=== PATIENT | male | born 1955 | race Caucasian/White ===

== ENCOUNTER 2016-09-11 20:53 | Inpatient (IN) | payer BC, OTHER ==
[~2016-09-11] VITALS: Ht 172.7 cm; Wt 73.3 kg
[2016-09-12] VITALS (11 sets, daily range): BP systolic 103–155; BP diastolic 58–68; PULSE 75–91; RESP 16–20; Ht 172.7 cm; Wt 73.3 kg
[2016-09-12] MEDS ORDERED: morphine 10 MG INJ IM PRN (01:30)
[2016-09-12] MEDS ORDERED: DEXTROSE 5%-0.9% NACL 1,000 ML IV SCH (01:30)
[2016-09-12] MEDS ORDERED: ONDANSETRON 4 MG INJ IV PRN (01:30)
[2016-09-12] MEDS ORDERED: ACETAMINOPHEN 325 MG TAB PO PRN (01:30)
[2016-09-12] MEDS ORDERED: VANCOMYCIN IV PER PHARMACY XX SCH (01:30)
[2016-09-12] MEDS ORDERED: GEMF600T60 PO (01:43)
[2016-09-12] MEDS ORDERED: GABA300C16 PO (01:43)
[2016-09-12] MEDS ORDERED: LISI-313 PO (01:43)
[2016-09-12] MEDS ORDERED: FER325 PO (01:43)
[2016-09-12] MEDS ORDERED: HYDR-906 PO (01:43)
[2016-09-12] MEDS ORDERED: DICL75TA2 PO (01:43)
[2016-09-12] MEDS ORDERED: METF500T4 PO (01:43)
[2016-09-12] MEDS ORDERED: ASPI-664 PO (01:43)
[2016-09-12] MEDS ORDERED: SENN-53 PO (01:43)
[2016-09-12] MEDS ORDERED: morphine 2 MG INJ ONE (02:55)
[2016-09-12] MEDS: DEXTROSE 5%-0.9% NACL 1,000 ML IV SCH ×2 (03:46→17:07)
[2016-09-12] MEDS: morphine 2 MG INJ IV PRN ×3 (03:56→14:04)
[2016-09-12] MEDS: LEVOFLOXACIN 750MG/D5W (PMX) 150 ML IVPB SCH (03:56)
[2016-09-12] MEDS ORDERED: VANCOMYCIN 1.5 GM in SOD CHLORIDE 0.9% 250 ML IVPB SCH (05:00)
[2016-09-12] MEDS: PANTOPRAZOLE 40 MG INJ IV SCH ×2 (06:50→17:59)
[2016-09-12 07:40] LABS: HEMATOCRIT 20.9 % (42.0-52.0); MEAN CORPUSCULAR HGB CONC 31.8 g/dl (32.0-37.0); MEAN CORPUSCULAR VOLUME 72.3 fl (82.0-101.0); MEAN PLATELET VOLUME 7.2 fl (7.4-10.4); PLATELET COUNT 299 10^3/UL (140-440); RED CELL DISTRIBUTION WIDTH 18.4 % (11.5-14.5)
[2016-09-12 07:42] LABS: CONDITION 1; LH ANALYZER COMMENTS 1
[2016-09-12 07:45] LABS: HEMOGLOBIN 6.7 g/dl (14.0-18.0)
[2016-09-12 07:47] LABS: ALBUMIN 2.7 g/dl (3.3-4.9)
[2016-09-12 07:48] LABS: POTASSIUM 4.7 mmol/L (3.5-5.1)
[2016-09-12 07:50] LABS: ALBUMIN/GLOBULIN RATIO 0.62; CALCIUM 8.1 mg/dl (8.4-10.2); CREATININE 0.67 mg/dl (0.61-1.24)
[2016-09-12 10:04] LABS: BASOPHIL # 0.2 10^3/ul (0.0-0.1); EOSINOPHILS # 0.1 10^3/ul (0.0-0.5); LYMPHOCYTES # 0.8 10^3/ul (0.8-2.9); MONOCYTE # 0.2 10^3/ul (0.3-0.9); NEUTROPHIL # 7.8 10^3/ul (1.6-7.5)
--- NOTE | 2016-09-12 15:33 | HP ---
DATE OF ADMISSION: 09/12/2016 HISTORY OF PRESENT ILLNESS: Neno Browning is a middle-aged man who presented to this hospital when he was transferred from [facility] with a diagnosis of anemia, and the patient has hidradenitis suppurativa. The patient has some blood in the stool, but he is not sure about it, and is being admitted for further management. Sodium 137, potassium 4.5, BUN 20.78. The patient has a hemoglobin of 7.3, hematocrit 23.6. PAST MEDICAL HISTORY: The patient's past medical history is positive for diabetes, dyslipidemia, hypertension, and neuropathy. ALLERGY HISTORY: NEGATIVE. FAMILY HISTORY: Negative. SOCIAL HISTORY: Negative. MEDICATIONS: History listed as: 1. Aspirin. 2. Diclofenac. 3. Iron sulfate. 4. Gabapentin. 5. Lisinopril. 6. Metformin. 7. Simvastatin. REVIEW OF SYSTEMS: HEENT: Unremarkable. RESPIRATORY: Unremarkable. CARDIOVASCULAR: Unremarkable. GASTROINTESTINAL: As mentioned. EXTREMITIES: As mentioned. PHYSICAL EXAMINATION: GENERAL: The patient is awake, alert. VITAL SIGNS: Stable. HEAD: Atraumatic, normocephalic. Pupils are equal and reactive to light. NECK: Supple. No JVD. LUNGS: Clear. CARDIOVASCULAR: S1, S2 normal. ABDOMEN: Soft, nontender. Bowel sounds present. No palpable masses or hepatosplenomegaly. No guarding or rebound tenderness. EXTREMITIES: No cyanosis, clubbing, or edema. GROIN: The patient has a groin lesion, with pus noted. IMPRESSION: 1. Anemia, symptomatic. 2. The patient has hidradenitis suppurativa. 3. Diabetes mellitus. 4. Dyslipidemia. 5. Hypertension. 6. Anemia. 7. sepsis. PLAN: To continue on a diabetic diet. GI consultation and surgical consultation, antibiotics, wound care, per protocol. Orders were done. Dictated By: TAMARA SMITH MD BS/NTS Conf#: [id number] DID#: [id number] MTDD
[2016-09-12 17:41] LABS: IRON 15 ug/dl (35-150)
[2016-09-12] MEDS: HYDROmorphONE 2 MG/ML SYG IV PRN (17:48)
[2016-09-12 17:50] LABS: TOTAL IRON BINDING CAPACITY 207 ug/dl (241-421)
[2016-09-12] MEDS: VANCOMYCIN 1 GM in NS 250 ML IVPB SCH (18:00)
[2016-09-12] MEDS ORDERED: PEG/ELECTROLYTES 4L BTL PO ONE (19:00)
[2016-09-12] MEDS ORDERED: BISACODYL (EC) 5 MG TAB PO ONE (20:00)
[2016-09-12] MEDS: morphine (ER) 15 MG TAB PO SCH (21:00)
--- NOTE | 2016-09-12 23:24 | CONS ---
DATE OF ADMISSION: 09/12/2016 DATE OF CONSULTATION: 09/12/2016 TYPE OF CONSULTATION: Surgical repair. REFERRING PHYSICIAN: Heriberto Gomez MD CHIEF COMPLAINT: 1. Bilateral inguinal and buttock hidradenitis suppurativa. 2. Significant anemia. 3. Possible gastrointestinal bleed. HISTORY OF PRESENT ILLNESS: Mr. Nam Lazcano is a 60-year-old male with known bilateral inguinal and buttock hidradenitis suppurativa who has had multiple I and D's at different hospitals and also I a nd D of his scrotum home by urology who has had generalized weakness and dyspnea on exertion and pre sented initially to [facility] and was found to have significant anemia, was admitted but subseque ntly discharged. He then was referred by his PCP to [place] [facility] where he was evaluated and transferr ed to [facility] due to insurance capitations. He denies any current chest pain, nausea, v omiting, visual or neurologic changes. He reports drainage from all his hidradenitis sites includin g bilateral inguinal and buttocks. The patient is supposed to be seeing a plastic surgeon as outpat ient, but apparently he missed his appointment. He reports pain at all the sites. Surgical consult is obtained for further evaluation and treatment. PAST MEDICAL HISTORY 1. Bilateral inguinal hidradenitis suppurativa. 2. Bilateral buttock hidradenitis suppurativa. 3. Anemia. 4. Iron deficiency. 5. Hypoalbuminemia. 6. Leukocytosis. 7. Generalized weakness. 8. Dyspnea on exertion. 9. Hypertension. 10. Hypercholesterolemia. 11. Diabetes mellitus. PAST SURGICAL HISTORY: 1. Multiple incision and drainages of abscesses in both groins and buttock at [place] by Dr. Dalton Vilchis and of the scrotum by Dr. Grabiel Parks. 2. Aortic stent. ALLERGIES: PENICILLIN. SOCIAL HISTORY: Smoker, however, denies alcohol or recreational drugs. FAMILY HISTORY: Noncontributory. REVIEW OF SYSTEMS: As per HPI. No significant weight changes. PHYSICAL EXAMINATION: VITAL SIGNS: Pertinent vitals: Temperature is 98.5, pulse 70s to 100s, currently 89, blood pressure 127/65. GENERAL: No acute distress, comfortable, pleasant. HEENT: Pupils equal, reactive. No scleral icterus. Mucous membranes are moist. NECK: Supple, no JVD. PULMONARY: No respiratory distress with normal respiratory effort. No wheezing. CARDIAC: S1, S2 present. ABDOMEN: Soft, nontender. GENITOURINARY: Bilateral inguinal and partial scrotal induration and erythema and tenderness with p urulent drainage. SKIN: No rashes or jaundice; however hidradenitis bilateral inguinal and buttocks with purulent willem inage. RECTAL: Not done. However, buttock tissue has draining purulent fluid bilaterally. VASCULAR: Capillary refill is 2 seconds. NEUROLOGIC: Alert, oriented, moves all 4 extremities grossly. LABORATORY DATA: WBC is 11, H and H 6.7/21, platelets 299. Chemistries normal. Calcium is low at 8.1. Iron studies are low, albumin is 2.7. RADIOGRAPHIC: As per chart. ASSESSMENT AND PLAN: Ms. Nam Lazcano is a 60-year-old male with multiple comorbidities. 1. Bilateral hidradenitis suppurativa with acute infection and purulent discharge with involvement of the scrotum. Continue antibiotics. IV fluids. Plastic surgical consultation. Urologic consulta tion. 2. Significant anemia, iron deficiency of unknown etiology. A GI consulted and planning for colono scopy. 3. Hypoalbuminemia is probably multifactorial; however, he will benefit from optimization of his nu trition. 4. Hypertension. Continue diet and medication control. 4. Diabetes. Continue diet and medication control. 5. Hypercholesterolemia. Continue diet and medication control. Thank you very much for consulting me in this patient's care. Dictated By: STARR ZULUAGA/MAURIZIO Conf#: [id number] DID#: [id number]
[2016-09-13] VITALS (39 sets, daily range): BP systolic 94–151; BP diastolic 48–74; PULSE 78–124; RESP 10–22
--- NOTE | 2016-09-13 01:00 | RADRPT ---
PROCEDURE: XR Chest. CLINICAL INDICATION: Shortness of breath. TECHNIQUE: AP Portable chest. COMPARISON: No pertinent prior examinations were submitted for comparison. FINDINGS: The cardiomediastinal silhouette is normal. The lungs are clear. The osseous structures are unrema rkable. IMPRESSION: No acute findings. RPTAT: HIKT .Thony Pearce MD, MD Date Time Electronically viewed and signed by .Thony Pearce MD, MD on 09/13/2016 01:00 .T/
[2016-09-13] MEDS: LEVOFLOXACIN 750MG/D5W (PMX) 150 ML IVPB SCH (03:27)
[2016-09-13] MEDS: VANCOMYCIN 1 GM in NS 250 ML IVPB SCH ×3 (05:25→21:57)
[2016-09-13] MEDS: PANTOPRAZOLE 40 MG INJ IV SCH ×2 (05:25→18:00)
[2016-09-13 06:37] LABS: INR 1.25; PROTIME 15.8 Sec (12.2-14.2); PT RATIO 1.2
[2016-09-13] MEDS: DEXTROSE 5%-0.9% NACL 1,000 ML IV SCH ×2 (06:40→21:58)
[2016-09-13 06:45] LABS: BASOPHILS % 0.3 % (0.0-2.0); EOSINOPHILS # 0.1 10^3/ul (0.0-0.5); EOSINOPHILS % 1.1 % (0.0-7.0); HEMATOCRIT 25.4 % (42.0-52.0); HEMOGLOBIN 8.3 g/dl (14.0-18.0); LYMPHOCYTES # 0.9 10^3/ul (0.8-2.9); LYMPHOCYTES % 7.8 % (15.0-51.0); MEAN CORPUSCULAR HEMOGLOBIN 24.4 pg (29.0-33.0); MEAN CORPUSCULAR HGB CONC 32.6 g/dl (32.0-37.0); MEAN CORPUSCULAR VOLUME 74.9 fl (82.0-101.0); MEAN PLATELET VOLUME 7.2 fl (7.4-10.4); MONOCYTE # 0.5 10^3/ul (0.3-0.9); NEUTROPHIL # 10.1 10^3/ul (1.6-7.5); NEUTROPHILS % 86.8 % (39.0-77.0); PLATELET COUNT 312 10^3/UL (140-440); RED BLOOD COUNT 3.39 10^6/ul (4.70-6.10); RED CELL DISTRIBUTION WIDTH 19.4 % (11.5-14.5); UNCORRECTED WBC 11.6 10^3/ul (4.8-10.8); WHITE BLOOD COUNT 11.6 10^3/ul (4.8-10.8)
[2016-09-13 06:55] LABS: CONDITION 1; LH ANALYZER COMMENTS 1
[2016-09-13 06:57] LABS: ALBUMIN 2.9 g/dl (3.3-4.9); POTASSIUM 4.2 mmol/L (3.5-5.1)
[2016-09-13 06:59] LABS: ALBUMIN/GLOBULIN RATIO 0.67; BILIRUBIN,INDIRECT 0.3 mg/dl (0-1.1); BILIRUBIN,TOTAL 0.3 mg/dl (0.2-1.3); CREATININE 0.6 mg/dl (0.61-1.24)
[2016-09-13 07:00] LABS: TOTAL PROTEIN 7.2 g/dl (6.1-8.1)
[2016-09-13 07:10] LABS: CALCIUM 8.3 mg/dl (8.4-10.2)
[2016-09-13] MEDS: morphine (ER) 15 MG TAB PO SCH ×2 (09:00→21:00)
--- NOTE | 2016-09-13 13:44 | CONS ---
DATE OF ADMISSION: 09/12/2016 DATE OF CONSULTATION: 09/13/2016 REQUESTING PHYSICIAN: Dr. Kevin Martinez Dear Kevin: Thank you for asking me to see this patient in urological consultation. HISTORY OF PRESENT ILLNESS: As you know, he is a 60-year-old male who is known to have a history of bilateral inguinal and buttock hidradenitis suppurativa, and he has had multiple I and D at [facility] including [facility], and the patient was supposed to see a plastic surgeon because h e will probably need a skin graft over the areas of these separations. The patient went to the [facility] room at [facility] and was transferred to [facility] because of his insurance c apitation. A urological consultation was requested as there is a concern about whether the scrotum is also involved with the hidradenitis. The patient stated that he has had this for over about a ye ar and has had multiple procedures. He did have surgery on this multiple times. PAST MEDICAL HISTORY: He does have a history of anemia and iron deficiency, hypoalbuminemia, leukoc ytosis, generalized weakness, hypertension, hypercholesterolemia, diabetes mellitus. PAST SURGICAL HISTORY: Again, as mentioned, I and D of multiple abscesses in both groins and buttoc ks at [place] and also he has had a history of aortic stent. ALLERGIES: TO PENICILLIN. SOCIAL HISTORY: He is a smoker. He denies any alcohol and drug abuse. PHYSICAL EXAMINATION: GENERAL: Reveals a 60-year-old male. He weighs 73.3 kilograms. His height is 68 inches. VITAL SIGNS: Temperature is 98.3, pulse is 88, respirations 20, blood pressure 122/55. ABDOMEN: Soft. He does have multiple what appears to be scars and incisions with suppurative drain age in both inguinal and groin area, but the scrotum itself is intact. The does also have a hidrad enitis of the buttocks. EXTREMITIES: Normal. IMPRESSION: Bilateral hidradenitis suppurativa with acute infection, purulent drainage from the ing uinal scrotal area at the upper end of the scrotum, and the patient does have anemia and hypoalbumin emia, hypertension, diabetes and hypercholesterolemia. The patient is on pain medication. He is on vancomycin, Protonix, Levaquin, and Tylenol p.r.n. As far as urology is concerned, I think his scr otum is reasonably clean and if there is anything in the inguinal area that is extending into the sc rotum, that could be treated at the same time as the inguinal area, and he certainly will need these to be drained first, and then if he needs probably skin graft to that area, but the scrotum itself, the scrotal skin, and the testes are intact. I will follow his urological problem with you. I do thank you for allowing me to help in his care. Sincerely, Dictated By: MAURA SWANSON/MAURIZIO Conf#: [id number] DID#: [id number]
[2016-09-13] MEDS ORDERED: PROPOFOL 20 ML ONE (14:03)
[2016-09-13] MEDS ORDERED: FENTAnyl 50 MCG/ML VIAL ONE ×2 (14:03→15:55)
--- NOTE | 2016-09-13 14:08 | PN ---
Date/Time of Note Date/Time of Note DATE: 09/13/16 TIME: 14:05 Assessment/Plan Lines/Catheters IV C[facility] Type ([facility] Peripheral IV Rahman in Place (from [facility]): No Assessment/Plan Chief Complaint/Hosp Course 1. Bilateral hidradenitis suppurativa with acute infection and purulent discharge with involvement of the scrotum. Urologic consult patient noted and appreciated. -Continue antibiotics. -IV fluids. -Plastic surgical consultation pending. -Patient will need drainage of these abscesses 2. Significant anemia, iron deficiency of unknown etiology. -Colonoscopy and EGD pending 3. Hypoalbuminemia is probably multifactorial; however, he will benefit from optimization of his nutrition. 4. Hypertension. Continue diet and medication control. 4. Diabetes. Continue diet and medication control. 5. Hypercholesterolemia. Continue diet and medication control. Thank you Problems: Subjective 24 Hr Interval Summary Patient going for EGD and colonoscopy today. Continues to have pain and discharge from bilateral groin and bilateral buttocks. No abdominal pain. No nausea vomiting. No fevers or chills. No chest pain or shortness of breath. No visual or neurologic changes. No dysuria. Urology input appreciated. Plastic surgical input pending. Exam/Review of Systems Vital Signs Vitals Vital Signs Date Time Temp Pulse Resp B/P Pulse Ox O2 Delivery O2 Flow Rate FiO2 09/13/16 14:02 91 17 125/58 98 Room Air 09/13/16 11:47 98.3 Intake and Output 09/12/16 09/12/16 09/13/16 15:00 23:00 07:00 Intake Total 240 ml 150 ml Output Total 750 ml Balance -510 ml 150 ml Exam Free Text/Dictation GENERAL: No acute distress, comfortable, pleasant. HEENT: Pupils equal, reactive. No scleral icterus. Mucous membranes are moist. NECK: Supple, no JVD. PULMONARY: No respiratory distress with normal respiratory effort. No wheezing. CARDIAC: S1, S2 present. ABDOMEN: Soft, nontender. GENITOURINARY: Bilateral inguinal and partial scrotal induration and erythema and tenderness with purulent drainage. SKIN: No rashes or jaundice; however hidradenitis bilateral inguinal and buttocks with purulent drainage. RECTAL: Not done. However, buttock tissue has draining purulent fluid bilaterally. VASCULAR: Capillary refill is 2 seconds. NEUROLOGIC: Alert, oriented, moves all 4 extremities grossly. Results Result Diagram: 09/13/16 0540 09/13/16 0540 STARR MISHRA MD Sep 13, 2016 14:08
[2016-09-13] MEDS ORDERED: MIDAZOLAM 1 MG/ML 2 ML INJ ONE (15:55)
[2016-09-13] MEDS ORDERED: PHENYLephrine (100 MCG/ML) 5ML SYG ONE (16:12)
--- NOTE | 2016-09-13 16:13 | GILP ---
DATE OF PROCEDURE: PROCEDURES PERFORMED: EGD with biopsy and colonoscopy. FIRST PROCEDURE: EGD with biopsy. INDICATION: The patient is a 60-year-old male undergoing this procedure for passing black stool and also blood in the stool, and severe anemia, requiring 2 units of packed cell RBC transfusion. The patient also had a microcytic hypochromic picture. The purpose of this procedure is to evaluate the upper GI tract and lower GI tract, and to the cause of his GI bleeding. INFORMED CONSENT: The risks of the procedure, related and unrelated complications, anesthetic risks , and alternatives were discussed and informed consent was obtained. DESCRIPTION OF PROCEDURE: The patient was brought to the GI lab, sedated by Dr. Flower. After obta ining sedation the scope was passed with much ease into the esophagus, which was grossly within norm al limits. The Z line was at 37 cm. The patient had a small hiatal hernia. Stomach mucosa revealed aguirre-gastritis. Multiple erosions were identified in the antrum. The duodenal mucosa revealed 2 se hammad duodenal ulcers with a crater size of 2-3 mm near the apex of the duodenum. The second part w as within normal limits. Retroversion done in the stomach, a hiatal hernia was confirmed. The scop e was straightened out and 3 to 4 biopsies were obtained to rule out H. pylori infection. The scope was then gradually withdrawn, with excellent patient tolerance. IMPRESSION: 1. Normal esophagus. 2. Normal Z-line, which is at 37 cm. 3. Hiatal hernia. 4. Erosive gastritis. 5. Aguirre gastritis. 6. Two duodenal ulcers, with a crater size of 3-4 mm. 7. Normal ampulla and second part of the duodenum. PLAN: Review histopathology. Continue PPI. SECOND PROCEDURE: Colonoscopy. The patient was turned around and the perianal area was infiltrated and a foul smell was coming. The patient had what looked like mamta-anal abscesses. The scope was passed with much ease into the rec jamal. There was solid stool pushed to the side and advanced all the way up to hepatic flexure, beyon d that the visibility was poor because of solid, yellowish colored stool. The colon which was exami terrance up to the hepatic flexure appeared normal, no growth, no polyp, no diverticula identified. No a ltered blood was seen. The scope was withdrawn and hemorrhoids were seen. IMPRESSION: 1. Hemorrhoids. 2. Negative all the way up to the hepatic flexure. 3. Normal colored stool. 4. Poor prep beyond the hepatic flexure. 5. Solid stool in the rectum. 6. Mamta-anal infiltration and probably abscess with a foul smell. PLAN: At this point is to continue stool softeners. The patient is being evaluated by the surgeon. May need antibiotics, Cipro and Flagyl. Dictated By: GEORGI LYN MD PJ/NTS Conf#: [id number] DID#: [id number] CC: TAMARA SMITH MD;*EndCC*
[2016-09-13] MEDS ORDERED: morphine 10 MG INJ ONE (16:27)
[2016-09-13] MEDS ORDERED: DIPHENHYDRAMINE 50 MG INJ IV PRN (16:30)
[2016-09-13] MEDS ORDERED: ONDANSETRON 4 MG INJ IV PRN (16:30)
[2016-09-13] MEDS ORDERED: FENTAnyl 50 MCG/ML VIAL IV PRN (16:30)
[2016-09-13] MEDS ORDERED: morphine (1 MG/ML) 10ML SYRINGE IV PRN ×2 (16:30)
[2016-09-13] MEDS ORDERED: CEFAZOLIN 1 GM INJ ONE (17:11)
[2016-09-13] MEDS ORDERED: LIDOCAINE 2% (SDV) 5 ML INJ ONE (17:11)
[2016-09-13] MEDS ORDERED: ETOMIDATE 20 MG INJ ONE (17:11)
[2016-09-13] MEDS ORDERED: ONDANSETRON 4 MG INJ ONE (17:12)
--- NOTE | 2016-09-13 17:43 | OPR ---
Date/Time of Note Date/Time of Note DATE: 09/13/16 TIME: 17:33 Operative Report Procedure Date: Sep 13, 2016 Preoperative Diagnosis Bilateral groin abscesses secondary to hidradenitis suppurativa Bilateral buttock abscesses secondary to hidradenitis suppurativa Postoperative Diagnosis Bilateral groin multiloculated abscesses secondary to hidradenitis suppurativa Bilateral buttock multiloculated abscesses secondary to hidradenitis suppurativa Operation Performed 1. Incision and drainage of left groin multiloculated abscesses (12 x 6 cm) with Gore placements and packing with gauze 2. Incision and drainage of right groin multiloculated abscesses (12 x 5 cm) with Gore placement and packing with gauze 3. Incision and drainage of right buttock multiloculated abscesses (10 x 6 cm) with Gore placement and packing with gauze 4. Incision and drainage of left buttock multiloculated abscesses (8 x 5 cm) with Mae placement and packing with gauze Surgeon: STARR MISHRA MD Anesthesia: general (LMA) Anesthesiologist: KENJI HILARIO MD Estimated Blood Loss: 50 - 100 ml's Specimens Culture Tubes/Drains Mae drains and Kerlix gauzes Complications: None Pt Condition Post Procedure: stable Disposition: PACU Indications Per notes Risks include but are not limited to bleeding, infection, abscess, seroma, leak , damage to scrotum/testicles/intestines or any intra-abdominal/intrapelvic structures, hernia formation, chronic pain, need for re-operations or further surgeries, FL, stroke, PE, DVT, pneumonia, organ failures, or even . Procedure Description Patient was brought in and placed supine on the operating table. Preoperative antibiotic administered. All pressure points well-padded. After induction of anesthesia he was prepped injure usual sterile fashion and timeout was performed. There was multiple punctate of purulent discharges from both perineum and the inguinal areas. Using blunt dissection I entered these abscess sites on the left initially done the right and these tract to multiple areas and multiple loculated abscesses were identified. Insert of making huge incisions on both sides multiple incisions were made and those were connected underneath the skin and Gore drains were placed and secured with 2-0 nylon suture. Wounds were thoroughly irrigated. Culture was sent. Wounds were packed with Betadine soaked Curlex. This was done on both groins. Patient was placed in lateral decubitus right side up. All pressure points well- padded again. Both buttocks also had punctate appareling drainages which in the similar manner as above these were entered and connected underneath the skin and Gore drains were placed between the incisions and the wounds were irrigated and packed with gauze. Dry dressing was applied. Measurements are as above. Patient was placed back in supine position extubated and transferred to recovery room in stable condition and all counts were correct at the end of the operation 2. Complete hemostasis had been made. STARR MISHRA MD Sep 13, 2016 17:43
--- NOTE | 2016-09-13 18:12 | PN ---
Date/Time of Note Date/Time of Note DATE: 09/13/16 TIME: 18:11 Assessment/Plan VTE Prophylaxis VTE Prophylaxis Intervention: other Lines/Catheters IV Catheter Type (from [facility]): Peripheral IV Urinary Cath still in place: No Assessment/Plan Chief Complaint/Hosp Course IMPRESSION: 1. Anemia, symptomatic. 2. The patient has hidradenitis suppurativa. 3. Diabetes mellitus. 4. Dyslipidemia. 5. Hypertension. 6. Anemia. 7. sepsis. plan per gi and surgery Problems: Subjective 24 Hr Interval Summary Cardiovascular: no complaints Gastrointestinal: no complaints Genitourinary: other (groin pain+) Exam/Review of Systems Vital Signs Vitals Vital Signs Date Time Temp Pulse Resp B/P Pulse Ox O2 Delivery O2 Flow Rate FiO2 09/13/16 17:52 94 11 111/61 94 09/13/16 17:36 98.6 09/13/16 15:19 Room Air 09/13/16 14:57 3.0 Intake and Output 09/12/16 09/12/16 09/13/16 15:00 23:00 07:00 Intake Total 240 ml 150 ml Output Total 750 ml Balance -510 ml 150 ml Exam Respiratory: clear to auscultation Cardiovascular: regular rate and rhythm Gastrointestinal: soft Genitourinary - Male: other (groin wound+) Extremities: No edema Results Result Diagram: 09/13/16 0540 09/13/16 0540 Results 24 hrs Laboratory Tests Test 09/13/16 05:40 Alanine Aminotransferase (ALT/SGPT) 28 Albumin 2.9 L Albumin/Globulin Ratio 0.67 Alkaline Phosphatase 141 H Anion Gap 17 H Aspartate Amino Transf (AST/SGOT) 12 L Basophils # 0.0 Basophils % 0.3 Blood Morphology Comment Blood Urea Nitrogen 9 Calcium Level 8.3 L Carbon Dioxide Level 25 Chloride Level 100 Creatinine 0.60 L Direct Bilirubin 0.00 Eosinophils # 0.1 Eosinophils % 1.1 Globulin 4.30 H Glucose Level 114 Hematocrit 25.4 #L Hemoglobin 8.3 #L INR International Normalized Ratio 1.25 Indirect Bilirubin 0.3 Lymphocytes # 0.9 Lymphocytes % 7.8 L Mean Corpuscular Hemoglobin 24.4 L Mean Corpuscular Hemoglobin Concent 32.6 Mean Corpuscular Volume 74.9 L Mean Platelet Volume 7.2 L Monocytes # 0.5 Monocytes % 4.0 Neutrophils # 10.1 H Neutrophils % 86.8 H Nucleated Red Blood Cells # 0.0 Nucleated Red Blood Cells % 0.0 Platelet Count 312 Potassium Level 4.2 Prothrombin Time 15.8 H Prothrombin Time Ratio 1.2 Red Blood Count 3.39 L Red Cell Distribution Width 19.4 H Sodium Level 138 Total Bilirubin 0.3 Total Protein 7.2 White Blood Count 11.6 H Medications Medications Current Medications Pantoprazole (Protonix Iv) 40 mg BID@06,18 IV Last administered on 09/13/16 05:25; Admin Dose 40 MG; Start 09/12/16 at 06:00 Acetaminophen (Tylenol Tab) 650 mg Q6H PRN PO PAIN AND OR ELEVATED TEMP; Start 09/12/16 at 01:30 Ondansetron HCl 4 mg 4 mg Q6H PRN IV NAUSEA AND/OR VOMITING; Start 09/12/16 at 01:30 Levofloxacin/ Dextrose 150 ml @ 100 mls/hr Q24H IVPB Last administered on 03:27; Admin Dose 100 MLS/HR; Start 09/12/16 at 04:00 Dextrose/Sodium Chloride 1,000 ml @ 75 mls/hr [id number] IV Last administered on 09/12/16at 03:46; Admin Dose 75 MLS/HR; Start 09/12/16 at 04:00 Vancomycin HCl (Vancocin) 250 ml @ 125 mls/hr Q12H IVPB Last administered on 09/13/16 05:25; Admin Dose 125 MLS/HR; Start 09/12/16 at 18:00 Hydromorphone HCl (Dilaudid) 2 mg Q4H PRN IV PAIN Last administered on at 17:48; Admin Dose 2 MG; Start 09/12/16 at 18:00 Morphine Sulfate (Ms Contin (Er)) 15 mg BID PO Last administered on 09/12/16 21:00; Admin Dose 15 MG; Start 09/12/16 at 21:00 TAMARA SMITH MD Sep 13, 2016 18:12
--- NOTE | 2016-09-13 19:05 | RADRPT ---
Vent Rate: 76 bpm RR Interval: 0 msec NC Interval: 134 msec QRS Duration: 100 msec QT Interval: 378 msec QTC Interval: 425 msec P-R-T Placedo: 62 - 62 - 61 degrees Normal sinus rhythm Normal ECG Electronically Signed By: Ananda Espinoza [id number]
[2016-09-13] MEDS ORDERED: GLUCAGON 1 MG INJ IM PRN (20:00)
[2016-09-13] MEDS ORDERED: GLUCOSE GEL 15 GRAM TUBE PO PRN ×2 (20:00)
[2016-09-13] MEDS ORDERED: GLUCOSE GEL 15 GRAM TUBE BUCCAL PRN (20:00)
[2016-09-13] MEDS ORDERED: DEXTROSE 50% 50 ML SYRINGE IV PRN ×2 (20:00)
[2016-09-13] MEDS: INSULIN ASPART [NOVOLOG] 3 ML PEN SC SCH (21:00)
[2016-09-14] VITALS (12 sets, daily range): BP systolic 102–120; BP diastolic 51–65; PULSE 85–127; RESP 16–22
[2016-09-14] MEDS: HYDROmorphONE 2 MG/ML SYG IV PRN ×3 (01:20→16:12)
[2016-09-14] MEDS: ACCUCHECK XX SCH (02:00)
[2016-09-14] MEDS: LEVOFLOXACIN 750MG/D5W (PMX) 150 ML IVPB SCH (03:52)
[2016-09-14] MEDS: PANTOPRAZOLE 40 MG INJ IV SCH ×2 (05:31→16:56)
[2016-09-14 06:24] LABS: HEMATOCRIT 26.3 % (42.0-52.0); HEMOGLOBIN 8.7 g/dl (14.0-18.0); LYMPHOCYTES # 0.5 10^3/ul (0.8-2.9); MEAN CORPUSCULAR HEMOGLOBIN 24.4 pg (29.0-33.0); MEAN CORPUSCULAR VOLUME 73.9 fl (82.0-101.0); MEAN PLATELET VOLUME 7.1 fl (7.4-10.4); MONOCYTE # 0.4 10^3/ul (0.3-0.9); MONOCYTES % 2.9 % (0.0-11.0); NEUTROPHIL # 14.2 10^3/ul (1.6-7.5); NEUTROPHILS % 94.1 % (39.0-77.0); PLATELET COUNT 340 10^3/UL (140-440); RED BLOOD COUNT 3.56 10^6/ul (4.70-6.10); UNCORRECTED WBC 15.1 10^3/ul (4.8-10.8); WHITE BLOOD COUNT 15.1 10^3/ul (4.8-10.8)
[2016-09-14 06:27] LABS: CONDITION 1; LH ANALYZER COMMENTS 1; SUSPECT 1
[2016-09-14 06:53] LABS: ALBUMIN 2.6 g/dl (3.3-4.9); POTASSIUM 4.3 mmol/L (3.5-5.1)
[2016-09-14 06:55] LABS: CREATININE 0.85 mg/dl (0.61-1.24)
[2016-09-14 06:56] LABS: ALBUMIN/GLOBULIN RATIO 0.61; BILIRUBIN,INDIRECT 0.5 mg/dl (0-1.1); BILIRUBIN,TOTAL 0.5 mg/dl (0.2-1.3); CALCIUM 7.8 mg/dl (8.4-10.2); TOTAL PROTEIN 6.8 g/dl (6.1-8.1)
[2016-09-14] MEDS: morphine (ER) 15 MG TAB PO SCH ×2 (08:15→21:00)
[2016-09-14] MEDS: VANCOMYCIN 1 GM in NS 250 ML IVPB SCH ×2 (08:15→21:11)
[2016-09-14] MEDS: INSULIN ASPART [NOVOLOG] 3 ML PEN SC SCH ×5 (08:40→21:00)
[2016-09-14] MEDS: DEXTROSE 5%-0.9% NACL 1,000 ML IV SCH ×2 (09:20→23:11)
--- NOTE | 2016-09-14 15:20 | PN ---
Date/Time of Note Date/Time of Note DATE: 09/14/16 TIME: 15:19 Assessment/Plan VTE Prophylaxis VTE Prophylaxis Intervention: other Lines/Catheters [facility] Type ([facility] Saline Lock Urinary Cath still in place: No Assessment/Plan Chief Complaint/Hosp Course IMPRESSION: 1. Anemia, symptomatic. 2. The patient has hidradenitis suppurativa.s/p i and d 3. Diabetes mellitus. 4. Dyslipidemia. 5. Hypertension. 6. Anemia. 7. sepsis. 8 gi bleed plan per gi and surgery antibiotic and wound care Problems: Subjective 24 Hr Interval Summary Gastrointestinal: no complaints Genitourinary: no complaints Exam/Review of Systems Vital Signs Vitals Vital Signs Date Time Temp Pulse Resp B/P Pulse Ox O2 Delivery O2 Flow Rate FiO2 09/14/16 12:09 95 09/14/16 11:15 97.4 19 113/56 99 09/13/16 22:30 Nasal Cannula 3.0 Intake and Output 09/13/16 09/13/16 09/14/16 15:00 23:00 07:00 Intake Total 1200 ml 900 ml 770 ml Output Total 850 ml 50 ml 650 ml Balance 350 ml 850 ml 120 ml Exam Neck: supple Respiratory: clear to auscultation Cardiovascular: regular rate and rhythm Gastrointestinal: soft Musculoskeletal: nl extremities to inspection Extremities: normal pulses Results Result Diagram: 09/14/16 0537 09/14/16 0537 Results 24 hrs Laboratory Tests Test 09/13/16 21:52 09/14/16 05:37 09/14/16 08:12 09/14/16 11:54 Bedside Glucose 152 147 118 Alanine Aminotransferase (ALT/SGPT) 14 Albumin 2.6 L Albumin/Globulin Ratio 0.61 Alkaline Phosphatase 111 Anion Gap 15 Aspartate Amino Transf (AST/SGOT) 13 L Basophils # 0.0 Basophils % 0.0 Blood Morphology Comment Blood Urea Nitrogen 15 Calcium Level 7.8 L Carbon Dioxide Level 24 Chloride Level 100 Creatinine 0.85 Differential Comment AUTO w/SCAN Direct Bilirubin 0.00 Eosinophils # 0.0 Eosinophils % 0.0 Globulin 4.20 H Glucose Level 145 Hematocrit 26.3 L Hemoglobin 8.7 L Indirect Bilirubin 0.5 Lymphocytes # 0.5 L Lymphocytes % 3.0 L Mean Corpuscular Hemoglobin 24.4 L Mean Corpuscular Hemoglobin Concent 33.0 Mean Corpuscular Volume 73.9 L Mean Platelet Volume 7.1 L Monocytes # 0.4 Monocytes % 2.9 Neutrophils # 14.2 H Neutrophils % 94.1 H Nucleated Red Blood Cells # 0.0 Nucleated Red Blood Cells % 0.0 Platelet Count 340 Potassium Level 4.3 Red Blood Count 3.56 L Red Cell Distribution Width 20.0 H Sodium Level 135 Total Bilirubin 0.5 Total Protein 6.8 White Blood Count 15.1 #H Medications Medications Current Medications Pantoprazole (Protonix Iv) 40 mg BID@06,18 IV Last administered on 09/14/16at 05:31; Admin Dose 40 MG; Start 09/12/16 at 06:00 Acetaminophen (Tylenol Tab) 650 mg Q6H PRN PO PAIN AND OR ELEVATED TEMP; Start 09/12/16 at 01:30 Ondansetron HCl 4 mg 4 mg Q6H PRN IV NAUSEA AND/OR VOMITING; Start 09/12/16 at 01:30 Levofloxacin/ Dextrose 150 ml @ 100 mls/hr Q24H IVPB Last administered on at 03:52; Admin Dose 100 MLS/HR; Start 09/12/16 at 04:00 Dextrose/Sodium Chloride (D5-NS) 1,000 ml @ 75 mls/hr [id number] IV Last administered on 09/14/16at 09:20; Admin Dose 75 MLS/HR; Start 09/12/16 at 04:00 Hydromorphone HCl (Dilaudid) 2 mg Q4H PRN IV PAIN Last administered on at 05:32; Admin Dose 2 MG; Start 09/12/16 at 18:00 Morphine Sulfate (Ms Contin (Er)) 15 mg BID PO Last administered on 09/14/16at 08:15; Admin Dose 15 MG; Start 09/12/16 at 21:00 Diagnostic Test (Pha) (Accucheck) 1 ea 02 XX ; Start 09/14/16 at 02:00 Miscellaneous Information 1 ea NOTE XX ; Start 09/13/16 at 20:00 Glucose (Glutose) 15 gm Q15M PRN PO DECREASED GLUCOSE; Start 09/13/16 at 20:00 Glucose (Glutose) 22.5 gm Q15M PRN PO DECREASED GLUCOSE; Start 09/13/16 at 20: 00 Dextrose (D50w Syringe) 25 ml Q15M PRN IV DECREASED GLUCOSE; Start 09/13/16 at 20:00 Dextrose (D50w Syringe) 50 ml Q15M PRN IV DECREASED GLUCOSE; Start 09/13/16 at 20:00 Glucagon (Glucagen) 1 mg Q15M PRN IM DECREASED GLUCOSE; Start 09/13/16 at 20: 00 Glucose 15 gm 15 gm Q15M PRN BUCCAL DECREASED GLUCOSE; Start 09/13/16 at 20:00 Vancomycin HCl (Vancocin) 250 ml @ 125 mls/hr Q12H IVPB Last administered on 09/14/16at 08:15; Admin Dose 125 MLS/HR; Start 09/13/16 at 20:30 Miscellaneous Information (*Rx Drug Level Order Reminder*) 1 ONCE ONCE XX ; Start 09/15/16 at 07:30; Stop 09/15/16 at 07:31 TAMARA SMITH MD Sep 14, 2016 15:20
--- NOTE | 2016-09-14 15:30 | PN ---
Date/Time of Note Date/Time of Note DATE: 09/14/16 TIME: 14:43 Assessment/Plan Lines/Catheters IV Catheter Type (from [facility]): Saline Lock Rahman in Place (from [facility]): No Assessment/Plan Chief Complaint/Hosp Course 1. Bilateral hidradenitis suppurativa with acute infection and purulent discharge with involvement of the scrotum. Urologic consult patient noted and appreciated. s/p I&D 09/13 -Continue antibiotics. -Nutrition optimization -Vit C -Off load -Local care -Plastic surgical consultation pending as outpt. 2. Significant anemia, iron deficiency, with Gastritis and PUD s/p Colonoscopy and EGD. s/p pRBC. -ppi -monitor -prbc prn 3. Hypoalbuminemia is probably multifactorial; however, he will benefit from optimization of his nutrition. 4. Hypertension. Continue diet and medication control. 4. Diabetes. Continue diet and medication control. 5. Hypercholesterolemia. Continue diet and medication control. Thank you Problems: Subjective 24 Hr Interval Summary s/p EGD and colonoscopy 09/13. s/p I&D bilateral groins and buttocks 09/13. Min pain at surgical site. No abdominal pain. No nausea vomiting. No fevers or chills. No chest pain or shortness of breath. No visual or neurologic changes. No dysuria. Exam/Review of Systems Vital Signs Vitals Vital Signs Date Time Temp Pulse Resp B/P Pulse Ox O2 Delivery O2 Flow Rate FiO2 09/14/16 12:09 95 09/14/16 11:15 97.4 19 113/56 99 09/13/16 22:30 Nasal Cannula 3.0 Intake and Output 09/13/16 09/13/16 09/14/16 14:59 22:59 06:59 Intake Total 1200 ml 900 ml 770 ml Output Total 850 ml 50 ml 650 ml Balance 350 ml 850 ml 120 ml Exam Free Text/Dictation GENERAL: No acute distress, comfortable, pleasant. HEENT: Pupils equal, reactive. No scleral icterus. Mucous membranes are moist. NECK: Supple, no JVD. PULMONARY: No respiratory distress with normal respiratory effort. No wheezing. CARDIAC: S1, S2 present. ABDOMEN: Soft, nontender. GENITOURINARY: Bilateral inguinal and partial scrotal induration. [place] drains SKIN: No rashes or jaundice; however hidradenitis bilateral inguinal and buttocks with roel drains and packing gauze VASCULAR: Capillary refill is 2 seconds. NEUROLOGIC: Alert, oriented, moves all 4 extremities grossly. Results Result Diagram: 09/14/16 0537 09/14/16 0537 STARR MISHRA MD Sep 14, 2016 14:56
[2016-09-15] MEDS: ACCUCHECK XX SCH (02:00)
[2016-09-15] MEDS: HYDROmorphONE 2 MG/ML SYG IV PRN ×2 (03:38→11:48)
[2016-09-15] MEDS: LEVOFLOXACIN 750MG/D5W (PMX) 150 ML IVPB SCH ×2 (04:55→04:58)
[2016-09-15] MEDS: PANTOPRAZOLE 40 MG INJ IV SCH ×2 (06:16→16:43)
[2016-09-15 07:46] VITALS: BP 109/53; RESP 20
[2016-09-15] MEDS: INSULIN ASPART [NOVOLOG] 3 ML PEN SC SCH ×4 (08:00→21:00)
[2016-09-15 08:34] LABS: BASOPHILS % 0.1 % (0.0-2.0); EOSINOPHILS # 0.1 10^3/ul (0.0-0.5); EOSINOPHILS % 1.1 % (0.0-7.0); HEMOGLOBIN 7.4 g/dl (14.0-18.0); LYMPHOCYTES # 0.5 10^3/ul (0.8-2.9); LYMPHOCYTES % 6.5 % (15.0-51.0); MEAN CORPUSCULAR HEMOGLOBIN 24.2 pg (29.0-33.0); MEAN CORPUSCULAR HGB CONC 32.1 g/dl (32.0-37.0); MEAN CORPUSCULAR VOLUME 75.2 fl (82.0-101.0); MEAN PLATELET VOLUME 6.8 fl (7.4-10.4); MONOCYTE # 0.5 10^3/ul (0.3-0.9); MONOCYTES % 6.6 % (0.0-11.0); NEUTROPHIL # 6.4 10^3/ul (1.6-7.5); NEUTROPHILS % 85.7 % (39.0-77.0); PLATELET COUNT 289 10^3/UL (140-440); RED BLOOD COUNT 3.06 10^6/ul (4.70-6.10); RED CELL DISTRIBUTION WIDTH 20.6 % (11.5-14.5); UNCORRECTED WBC 7.5 10^3/ul (4.8-10.8); WHITE BLOOD COUNT 7.5 10^3/ul (4.8-10.8)
[2016-09-15 08:51] LABS: CONDITION 1; LH ANALYZER COMMENTS 1
[2016-09-15] MEDS: morphine (ER) 15 MG TAB PO SCH ×2 (09:00→22:08)
--- NOTE | 2016-09-15 09:16 | CONS ---
Date/Time of Note Date/Time of Note DATE: 09/14/16 TIME: 22:15 Assessment/Plan Assessment/Plan Chief Complaint/Hosp Course Assessment and Recommendations: 1. Bilateral hidradenitis suppurativa with acute infection and purulent discharge with involvement of the scrotum. Urologic consult patient noted and appreciated. s/p I&D 09/13 -Continue antibiotics. -Nutrition optimization -Vit C -Off load -Local care -Plastic surgical consultation pending as outpt. 2. Significant anemia, iron deficiency, with Gastritis and PUD s/p Colonoscopy and EGD. s/p pRBC. - continue protonix 40 mg bid for at least 1 month - as colonoscopy was not completed, will need to repeat when EGD is repeated by Dr. Moseley 3. Hypoalbuminemia is probably multifactorial; - nutrition/dietitian to optimize his diet - advance diet as tolerated 4. Diabetes. Continue diet and medication control. 5. Hypercholesterolemia. Continue diet and medication control. Problems: Consultation Date/Type/Reason Admit Date/Time Sep 12, 2016 at 00:10 Initial Consult Date Type of Consultation: GI 24 HR Interval Summary Free Text/Dictation Leukocytosis resolved. s/p EGD and colonoscopy 09/13. s/p I&D bilateral groins and buttocks 09/13. Min pain at surgical site. No abdominal pain. No nausea vomiting. No fevers or chills. No chest pain or shortness of breath. Tolerating clear liquid diet Exam/Review of Systems Vital Signs Vitals Vital Signs Date Time Temp Pulse Resp B/P Pulse Ox O2 Delivery O2 Flow Rate FiO2 09/15/16 07:46 91.8 78 20 109/53 98 09/13/16 22:30 Nasal Cannula 3.0 Intake and Output 09/14/16 09/14/16 09/15/16 15:00 23:00 07:00 Intake Total 50 ml 2520 ml Output Total 300 ml 600 ml Balance -250 ml 1920 ml Exam Head: atraumatic, normocephalic Eyes: EOMI, nl conjunctiva, nl lids, nl sclera ENMT: mucosa pink and moist, nl external ears & nose, nl lips & teeth, nl nasal mucosa & septum Neck: non-tender, supple Respiratory: clear to auscultation, normal air movement Cardiovascular: nl pulses, regular rate and rhythm Gastrointestinal: bowel sounds, non-tender, soft Results Result Diagram: 09/15/16 0816 09/14/16 0537 Results 24 hrs Laboratory Tests Test 09/14/16 11:54 09/14/16 16:42 09/14/16 21:24 09/15/16 07:51 Bedside Glucose 118 168 150 159 Test 09/15/16 08:16 Basophils # 0.0 Basophils % 0.1 Blood Morphology Comment Eosinophils # 0.1 Eosinophils % 1.1 Hematocrit 23.0 L Hemoglobin 7.4 L Lymphocytes # 0.5 L Lymphocytes % 6.5 L Mean Corpuscular Hemoglobin 24.2 L Mean Corpuscular Hemoglobin Concent 32.1 Mean Corpuscular Volume 75.2 L Mean Platelet Volume 6.8 L Monocytes # 0.5 Monocytes % 6.6 Neutrophils # 6.4 Neutrophils % 85.7 H Nucleated Red Blood Cells # 0.0 Nucleated Red Blood Cells % 0.0 Platelet Count 289 Red Blood Count 3.06 L Red Cell Distribution Width 20.6 H White Blood Count 7.5 # Medications Medications Current Medications Pantoprazole (Protonix Iv) 40 mg BID@06,18 IV Last administered on 09/15/16 06: 16; Admin Dose 40 MG; Start 09/12/16 at 06:00 Acetaminophen (Tylenol Tab) 650 mg Q6H PRN PO PAIN AND OR ELEVATED TEMP; Start 09/12/16 at 01:30 Ondansetron HCl 4 mg 4 mg Q6H PRN IV NAUSEA AND/OR VOMITING; Start 09/12/16 at 01:30 Levofloxacin/ Dextrose 150 ml @ 100 mls/hr Q24H IVPB Last administered on 04:58; Admin Dose 100 MLS/HR; Start 09/12/16 at 04:00 Dextrose/Sodium Chloride (D5-NS) 1,000 ml @ 75 mls/hr [id number] IV Last administered on 09/14/16at 23:11; Admin Dose 75 MLS/HR; Start 09/12/16 at 04:00 Hydromorphone HCl (Dilaudid) 2 mg Q4H PRN IV PAIN Last administered on 03:38; Admin Dose 2 MG; Start 09/12/16 at 18:00 Morphine Sulfate (Ms Contin (Er)) 15 mg BID PO Last administered on 09/14/16at 08:15; Admin Dose 15 MG; Start 09/12/16 at 21:00 Diagnostic Test (Pha) (Accucheck) 1 ea 02 XX ; Start 09/14/16 at 02:00 Miscellaneous Information 1 ea NOTE XX ; Start 09/13/16 at 20:00 Glucose (Glutose) 15 gm Q15M PRN PO DECREASED GLUCOSE; Start 09/13/16 at 20:00 Glucose (Glutose) 22.5 gm Q15M PRN PO DECREASED GLUCOSE; Start 09/13/16 at 20: 00 Dextrose (D50w Syringe) 25 ml Q15M PRN IV DECREASED GLUCOSE; Start 09/13/16 at 20:00 Dextrose (D50w Syringe) 50 ml Q15M PRN IV DECREASED GLUCOSE; Start 09/13/16 at 20:00 Glucagon (Glucagen) 1 mg Q15M PRN IM DECREASED GLUCOSE; Start 09/13/16 at 20: 00 Glucose 15 gm 15 gm Q15M PRN BUCCAL DECREASED GLUCOSE; Start 09/13/16 at 20:00 Vancomycin HCl (Vancocin) 250 ml @ 125 mls/hr Q12H IVPB Last administered on 09/14/16at 21:11; Admin Dose 125 MLS/HR; Start 09/13/16 at 20:30 Sodium Hypochlorite (Dakin'S (1/4 Strength)) 1 applic BID IRR ; Start 09/15/16 at 09:00 CHET PERRY MD Sep 15, 2016 09:16
[2016-09-15] MEDS: VANCOMYCIN 1 GM in NS 250 ML IVPB SCH (09:47)
[2016-09-15] MEDS: SODIUM HYPOCHLORITE 0.125% 473 ML BTL IRR SCH ×2 (11:45→20:26)
--- NOTE | 2016-09-15 12:01 | PN ---
Date/Time of Note Date/Time of Note DATE: 09/15/16 TIME: 11:59 Assessment/Plan Lines/Catheters IV Catheter Type (from [facility]): Saline Lock Rahman in Place (from [facility]): No Assessment/Plan Chief Complaint/Hosp Course 1. Bilateral hidradenitis suppurativa with acute infection and purulent discharge with involvement of the scrotum. Urologic consult patient noted and appreciated. s/p I&D 09/13 -Continue antibiotics. -Nutrition optimization -Vit C -Off load -Local care -Plastic surgical consultation pending as outpt. 2. Significant anemia, iron deficiency, with Gastritis and PUD s/p Colonoscopy and EGD. s/p pRBC. -ppi -monitor -prbc prn 3. Hypoalbuminemia is probably multifactorial; however, he will benefit from optimization of his nutrition. 4. Hypertension. Continue diet and medication control. 4. Diabetes. Continue diet and medication control. 5. Hypercholesterolemia. Continue diet and medication control. Thank you Problems: Subjective 24 Hr Interval Summary Leukocytosis resolved. s/p EGD and colonoscopy 09/13. s/p I&D bilateral groins and buttocks 09/13. Min pain at surgical site. No abdominal pain. No nausea vomiting. No fevers or chills. No chest pain or shortness of breath. No visual or neurologic changes. No dysuria. Exam/Review of Systems Vital Signs Vitals Vital Signs Date Time Temp Pulse Resp B/P Pulse Ox O2 Delivery O2 Flow Rate FiO2 09/15/16 07:46 91.8 78 20 109/53 98 09/13/16 22:30 Nasal Cannula 3.0 Intake and Output 09/14/16 09/14/16 09/15/16 15:00 23:00 07:00 Intake Total 50 ml 2520 ml Output Total 300 ml 600 ml Balance -250 ml 1920 ml Exam Free Text/Dictation GENERAL: No acute distress, comfortable, pleasant. HEENT: Pupils equal, reactive. No scleral icterus. Mucous membranes are moist. NECK: Supple, no JVD. PULMONARY: No respiratory distress with normal respiratory effort. No wheezing. CARDIAC: S1, S2 present. ABDOMEN: Soft, nontender. GENITOURINARY: Bilateral inguinal and partial scrotal induration. Roel drains. Dressings SKIN: No rashes or jaundice; however hidradenitis bilateral inguinal and buttocks with roel drains and packing gauze VASCULAR: Capillary refill is 2 seconds. NEUROLOGIC: Alert, oriented, moves all 4 extremities grossly. Results Result Diagram: 09/15/16 0816 09/14/16 0537 STARR MISHRA MD Sep 15, 2016 12:01
--- NOTE | 2016-09-15 14:35 | PN ---
Date/Time of Note Date/Time of Note DATE: 09/15/16 TIME: 14:34 Assessment/Plan VTE Prophylaxis VTE Prophylaxis Intervention: other Lines/Catheters IV Catheter Type (from [facility]): Saline Lock Urinary Cath still in place: No Assessment/Plan Chief Complaint/Hosp Course IMPRESSION: 1. Anemia, symptomatic. 2. The patient has hidradenitis suppurativa.s/p i and d 3. Diabetes mellitus. 4. Dyslipidemia. 5. Hypertension. 6. Anemia. 7. sepsis. 8 gi bleed plan per gi and surgery antibiotic and wound care tr to [facility] Problems: Subjective 24 Hr Interval Summary Respiratory: no complaints Cardiovascular: no complaints Gastrointestinal: no complaints Exam/Review of Systems Vital Signs Vitals Vital Signs Date Time Temp Pulse Resp B/P Pulse Ox O2 Delivery O2 Flow Rate FiO2 09/15/16 07:46 91.8 78 20 109/53 98 09/13/16 22:30 Nasal Cannula 3.0 Intake and Output 09/14/16 09/14/16 09/15/16 15:00 23:00 07:00 Intake Total 50 ml 2520 ml Output Total 300 ml 600 ml Balance -250 ml 1920 ml Exam Respiratory: clear to auscultation Cardiovascular: regular rate and rhythm Gastrointestinal: bowel sounds (+), soft Extremities: No edema Skin: other (groin wpund+) Results Result Diagram: 09/15/16 0816 09/14/16 0537 Results 24 hrs Laboratory Tests Test 09/14/16 16:42 09/14/16 21:24 09/15/16 07:51 09/15/16 08:16 Bedside Glucose 168 150 159 Basophils # 0.0 Basophils % 0.1 Blood Morphology Comment Eosinophils # 0.1 Eosinophils % 1.1 Hematocrit 23.0 L Hemoglobin 7.4 L Lymphocytes # 0.5 L Lymphocytes % 6.5 L Mean Corpuscular Hemoglobin 24.2 L Mean Corpuscular Hemoglobin Concent 32.1 Mean Corpuscular Volume 75.2 L Mean Platelet Volume 6.8 L Monocytes # 0.5 Monocytes % 6.6 Neutrophils # 6.4 Neutrophils % 85.7 H Nucleated Red Blood Cells # 0.0 Nucleated Red Blood Cells % 0.0 Platelet Count 289 Red Blood Count 3.06 L Red Cell Distribution Width 20.6 H Vancomycin Level Trough 9.4 L White Blood Count 7.5 # Medications Medications Current Medications Pantoprazole (Protonix Iv) 40 mg BID@06,18 IV Last administered on 09/15/16 06: 16; Admin Dose 40 MG; Start 09/12/16 at 06:00 Acetaminophen (Tylenol Tab) 650 mg Q6H PRN PO PAIN AND OR ELEVATED TEMP; Start 09/12/16 at 01:30 Ondansetron HCl 4 mg 4 mg Q6H PRN IV NAUSEA AND/OR VOMITING; Start 09/12/16 at 01:30 Levofloxacin/ Dextrose 150 ml @ 100 mls/hr Q24H IVPB Last administered on 04:58; Admin Dose 100 MLS/HR; Start 09/12/16 at 04:00 Dextrose/Sodium Chloride (D5-NS) 1,000 ml @ 75 mls/hr [id number] IV Last administered on 09/14/16at 23:11; Admin Dose 75 MLS/HR; Start 09/12/16 at 04:00 Hydromorphone HCl (Dilaudid) 2 mg Q4H PRN IV PAIN Last administered on 11:48; Admin Dose 2 MG; Start 09/12/16 at 18:00 Morphine Sulfate (Ms Contin (Er)) 15 mg BID PO Last administered on 09/14/16at 08:15; Admin Dose 15 MG; Start 09/12/16 at 21:00 Diagnostic Test (Pha) (Accucheck) 1 ea 02 XX ; Start 09/14/16 at 02:00 Miscellaneous Information 1 ea NOTE XX ; Start 09/13/16 at 20:00 Glucose (Glutose) 15 gm Q15M PRN PO DECREASED GLUCOSE; Start 09/13/16 at 20:00 Glucose (Glutose) 22.5 gm Q15M PRN PO DECREASED GLUCOSE; Start 09/13/16 at 20: 00 Dextrose (D50w Syringe) 25 ml Q15M PRN IV DECREASED GLUCOSE; Start 09/13/16 at 20:00 Dextrose (D50w Syringe) 50 ml Q15M PRN IV DECREASED GLUCOSE; Start 09/13/16 at 20:00 Glucagon (Glucagen) 1 mg Q15M PRN IM DECREASED GLUCOSE; Start 09/13/16 at 20: 00 Glucose (Glutose) 15 gm Q15M PRN BUCCAL DECREASED GLUCOSE; Start 09/13/16 at 20:00 Sodium Hypochlorite 1 applic 1 applic BID IRR Last administered on 09/15/16t 11: 45; Admin Dose 1 APPLIC; Start 09/15/16 at 09:00 Vancomycin HCl/ Sodium Chloride (Vancocin/NS) 250 ml @ 83.333 mls/ hr Q12 IVPB ; Start 09/15/16 at 21:00 TAMARA SMITH MD Sep 15, 2016 14:35
--- NOTE | 2016-09-15 14:39 | PDOCDIS ---
Discharge Instructions CONDITION Patient Condition: Stable HOME CARE INSTRUCTIONS: Special Diet: CLD ACTIVITY: Activity Restrictions: Slowly Increase Activity FOLLOW UP/APPOINTMENTS Appointments f/u dr raudel miller [address] hamilton [address] aung bartlett 2 wks TAMARA SMITH MD Sep 15, 2016 14:39
[2016-09-15] MEDS: DEXTROSE 5%-0.9% NACL 1,000 ML IV SCH (15:00)
--- NOTE | 2016-09-15 17:23 | CONS ---
Date/Time of Note Date/Time of Note DATE: 09/15/16 TIME: 17:21 Assessment/Plan Assessment/Plan Chief Complaint/Hosp Course Assessment and Recommendations: 1. Bilateral hidradenitis suppurativa with acute infection and purulent discharge with involvement of the scrotum. Urologic consult patient noted and appreciated. s/p I&D 09/13 -Continue antibiotics. -Nutrition optimization -Vit C -Off load -Local care -Plastic surgical consultation pending as outpt. 2. Significant anemia, iron deficiency, with Gastritis and PUD s/p Colonoscopy and EGD. s/p pRBC. - continue protonix 40 mg bid for at least 1 month - as colonoscopy was not completed, will need to repeat when EGD is repeated by Dr. Moseley 3. Hypoalbuminemia is probably multifactorial; - nutrition/dietitian to optimize his diet - advance diet as tolerated 4. Diabetes. Continue diet and medication control. 5. Hypercholesterolemia. Continue diet and medication control. 6. OK from GI perspective to dc to SNF if ok with primary and other consultants. Pt will need to f/u with Dr. Moseley Problems: Consultation Date/Type/Reason Admit Date/Time Sep 12, 2016 at 00:10 Type of Consultation: GI 24 HR Interval Summary Free Text/Dictation got called several times by nurse that pt is hungry and whether diet can be advanced. No n/v, tolerated clear liquid diet. Constitutional: improved Exam/Review of Systems Vital Signs Vitals Vital Signs Date Time Temp Pulse Resp B/P Pulse Ox O2 Delivery O2 Flow Rate FiO2 09/15/16 07:46 91.8 78 20 109/53 98 09/13/16 22:30 Nasal Cannula 3.0 Intake and Output 09/14/16 09/14/16 09/15/16 15:00 23:00 07:00 Intake Total 50 ml 2520 ml Output Total 300 ml 600 ml Balance -250 ml 1920 ml Exam Head: atraumatic, normocephalic Eyes: EOMI, nl conjunctiva, nl lids, nl sclera ENMT: mucosa pink and moist, nl external ears & nose, nl lips & teeth, nl nasal mucosa & septum Neck: non-tender, supple Respiratory: clear to auscultation, normal air movement Cardiovascular: nl pulses, regular rate and rhythm Gastrointestinal: bowel sounds, non-tender, soft Results Result Diagram: 1/1/17 0816 09/14/16 0537 Results 24 hrs Laboratory Tests Test 09/14/16 21:24 09/15/16 07:51 09/15/16 08:16 09/15/16 16:42 Bedside Glucose 150 159 179 Basophils # 0.0 Basophils % 0.1 Blood Morphology Comment Eosinophils # 0.1 Eosinophils % 1.1 Hematocrit 23.0 L Hemoglobin 7.4 L Lymphocytes # 0.5 L Lymphocytes % 6.5 L Mean Corpuscular Hemoglobin 24.2 L Mean Corpuscular Hemoglobin Concent 32.1 Mean Corpuscular Volume 75.2 L Mean Platelet Volume 6.8 L Monocytes # 0.5 Monocytes % 6.6 Neutrophils # 6.4 Neutrophils % 85.7 H Nucleated Red Blood Cells # 0.0 Nucleated Red Blood Cells % 0.0 Platelet Count 289 Red Blood Count 3.06 L Red Cell Distribution Width 20.6 H Vancomycin Level Trough 9.4 L White Blood Count 7.5 # Medications Medications Current Medications Pantoprazole (Protonix Iv) 40 mg BID@06,18 IV Last administered on 09/15/16 06: 16; Admin Dose 40 MG; Start 09/12/16 at 06:00 Acetaminophen (Tylenol Tab) 650 mg Q6H PRN PO PAIN AND OR ELEVATED TEMP; Start 09/12/16 at 01:30 Ondansetron HCl 4 mg 4 mg Q6H PRN IV NAUSEA AND/OR VOMITING; Start 09/12/16 at 01:30 Levofloxacin/ Dextrose 150 ml @ 100 mls/hr Q24H IVPB Last administered on 04:58; Admin Dose 100 MLS/HR; Start 09/12/16 at 04:00 Dextrose/Sodium Chloride (D5-NS) 1,000 ml @ 75 mls/hr [id number] IV Last administered on 09/14/16at 23:11; Admin Dose 75 MLS/HR; Start 09/12/16 at 04:00 Hydromorphone HCl (Dilaudid) 2 mg Q4H PRN IV PAIN Last administered on 11:48; Admin Dose 2 MG; Start 09/12/16 at 18:00 Morphine Sulfate (Ms Contin (Er)) 15 mg BID PO Last administered on 12/31/16at 08:15; Admin Dose 15 MG; Start 09/12/16 at 21:00 Diagnostic Test (Pha) (Accucheck) 1 ea 02 XX ; Start 09/14/16 at 02:00 Miscellaneous Information 1 ea NOTE XX ; Start 09/13/16 at 20:00 Glucose (Glutose) 15 gm Q15M PRN PO DECREASED GLUCOSE; Start 09/13/16 at 20:00 Glucose (Glutose) 22.5 gm Q15M PRN PO DECREASED GLUCOSE; Start 09/13/16 at 20: 00 Dextrose (D50w Syringe) 25 ml Q15M PRN IV DECREASED GLUCOSE; Start 09/13/16 at 20:00 Dextrose (D50w Syringe) 50 ml Q15M PRN IV DECREASED GLUCOSE; Start 09/13/16 at 20:00 Glucagon (Glucagen) 1 mg Q15M PRN IM DECREASED GLUCOSE; Start 09/13/16 at 20: 00 Glucose (Glutose) 15 gm Q15M PRN BUCCAL DECREASED GLUCOSE; Start 09/13/16 at 20:00 Sodium Hypochlorite 1 applic 1 applic BID IRR Last administered on 09/15/16t 11: 45; Admin Dose 1 APPLIC; Start 09/15/16 at 09:00 Vancomycin HCl/ Sodium Chloride (Vancocin/NS) 250 ml @ 83.333 mls/ hr Q12 IVPB ; Start 09/15/16 at 21:00 CHET PERRY MD Sep 15, 2016 17:23
[2016-09-15 19:48] VITALS: BP 92/54; RESP 20
[2016-09-15] MEDS: VANCOMYCIN 1.25 GM in SOD CHLORIDE 0.9% 250 ML IVPB SCH (20:26)
[2016-09-16] MEDS: DEXTROSE 5%-0.9% NACL 1,000 ML IV SCH ×2 (00:36→13:08)
[2016-09-16] MEDS: ACCUCHECK XX SCH (02:00)
[2016-09-16] MEDS: LEVOFLOXACIN 750MG/D5W (PMX) 150 ML IVPB SCH (04:44)
[2016-09-16] MEDS: PANTOPRAZOLE 40 MG INJ IV SCH ×2 (05:24→17:53)
[2016-09-16] MEDS: HYDROmorphONE 2 MG/ML SYG IV PRN (05:31)
[2016-09-16 06:50] LABS: CREATININE 0.59 mg/dl (0.61-1.24)
[2016-09-16 08:06] VITALS: BP 105/51; RESP 18
[2016-09-16] MEDS: morphine (ER) 15 MG TAB PO SCH ×2 (08:11→21:15)
[2016-09-16] MEDS: INSULIN ASPART [NOVOLOG] 3 ML PEN SC SCH ×4 (08:12→21:16)
[2016-09-16] MEDS: VANCOMYCIN 1.25 GM in SOD CHLORIDE 0.9% 250 ML IVPB SCH ×2 (08:30→21:14)
--- NOTE | 2016-09-16 10:42 | CONS ---
Date/Time of Note Date/Time of Note DATE: 09/16/16 TIME: 10:38 Assessment/Plan Assessment/Plan Chief Complaint/Hosp Course Assessment and Recommendations: 1. Bilateral hidradenitis suppurativa with acute infection and purulent discharge with involvement of the scrotum. Urologic consult patient noted and appreciated. s/p I&D 09/13 -Continue antibiotics. -Nutrition optimization -Vit C -Off load -Local care -Plastic surgical consultation pending as outpt. 2. Significant anemia, iron deficiency, with Gastritis and PUD s/p Colonoscopy and EGD. s/p pRBC. - continue protonix 40 mg bid for at least 1 month - as colonoscopy was not completed, will need to repeat when EGD is repeated by Dr. Moseley 3. Hypoalbuminemia is probably multifactorial; - nutrition/dietitian to optimize his diet - advance diet as tolerated 4. Diabetes. Continue diet and medication control. 5. Hypercholesterolemia. Continue diet and medication control. 6. Constipation: give a dose of miralax today. 7. OK from GI perspective to dc to SNF if ok with primary and other consultants. Pt will need to f/u with Dr. Moseley Problems: Consultation Date/Type/Reason Admit Date/Time Sep 12, 2016 at 00:10 Type of Consultation: GI 24 HR Interval Summary Free Text/Dictation tolerating po, feels constipated Constitutional: improved Exam/Review of Systems Vital Signs Vitals Vital Signs Date Time Temp Pulse Resp B/P Pulse Ox O2 Delivery O2 Flow Rate FiO2 09/16/16 08:06 98.1 65 18 105/51 98 09/13/16 22:30 Nasal Cannula 3.0 Intake and Output 09/15/16 09/15/16 09/16/16 15:00 23:00 07:00 Intake Total 1730 ml Output Total 500 ml Balance 1230 ml Exam Constitutional: alert, oriented, well developed Psych: nl mood/affect, no complaints Head: atraumatic, normocephalic Eyes: EOMI, nl conjunctiva, nl lids, nl sclera ENMT: mucosa pink and moist, nl external ears & nose, nl lips & teeth, nl nasal mucosa & septum Neck: non-tender, supple Respiratory: clear to auscultation, normal air movement Cardiovascular: nl pulses, regular rate and rhythm Gastrointestinal: bowel sounds, non-tender, soft Results Result Diagram: 09/15/16 0816 09/16/16 0510 Results 24 hrs Laboratory Tests Test 09/15/16 16:42 09/15/16 20:19 09/16/16 05:10 09/16/16 07:15 Bedside Glucose 179 168 155 Blood Urea Nitrogen 11 Creatinine 0.59 L Medications Medications Current Medications Pantoprazole (Protonix Iv) 40 mg BID@06,18 IV Last administered on 09/16/16 05: 24; Admin Dose 40 MG; Start 09/12/16 at 06:00 Acetaminophen (Tylenol Tab) 650 mg Q6H PRN PO PAIN AND OR ELEVATED TEMP; Start 09/12/16 at 01:30 Ondansetron HCl 4 mg 4 mg Q6H PRN IV NAUSEA AND/OR VOMITING; Start 09/12/16 at 01:30 Levofloxacin/ Dextrose 150 ml @ 100 mls/hr Q24H IVPB Last administered on 04:44; Admin Dose 100 MLS/HR; Start 09/12/16 at 04:00 Dextrose/Sodium Chloride (D5-NS) 1,000 ml @ 75 mls/hr [id number] IV Last administered on 09/16/16 00:36; Admin Dose 75 MLS/HR; Start 09/12/16 at 04:00 Hydromorphone HCl (Dilaudid) 2 mg Q4H PRN IV PAIN Last administered on 05:31; Admin Dose 2 MG; Start 09/12/16 at 18:00 Morphine Sulfate (Ms Contin (Er)) 15 mg BID PO Last administered on 09/16/16 08 :11; Admin Dose 15 MG; Start 09/12/16 at 21:00 Diagnostic Test (Pha) (Accucheck) 1 ea 02 XX ; Start 09/14/16 at 02:00 Miscellaneous Information 1 ea NOTE XX ; Start 09/13/16 at 20:00 Glucose (Glutose) 15 gm Q15M PRN PO DECREASED GLUCOSE; Start 09/13/16 at 20:00 Glucose (Glutose) 22.5 gm Q15M PRN PO DECREASED GLUCOSE; Start 09/13/16 at 20: 00 Dextrose (D50w Syringe) 25 ml Q15M PRN IV DECREASED GLUCOSE; Start 09/13/16 at 20:00 Dextrose (D50w Syringe) 50 ml Q15M PRN IV DECREASED GLUCOSE; Start 09/13/16 at 20:00 Glucagon (Glucagen) 1 mg Q15M PRN IM DECREASED GLUCOSE; Start 09/13/16 at 20: 00 Glucose (Glutose) 15 gm Q15M PRN BUCCAL DECREASED GLUCOSE; Start 09/13/16 at 20:00 Sodium Hypochlorite 1 applic 1 applic BID IRR Last administered on 09/15/16 20: 26; Admin Dose 1 APPLIC; Start 09/15/16 at 09:00 Vancomycin HCl/ Sodium Chloride (Vancocin/NS) 250 ml @ 83.333 mls/ hr Q12 IVPB Last administered on 09/16/16 08:30; Admin Dose 83.333 MLS/HR; Start 09/15/16 at 21:00 CHET PERRY MD Sep 16, 2016 10:41
[2016-09-16] MEDS ORDERED: POLYETHYLENE GLYCOL 17 GM PACKET PO ONE (11:00)
[2016-09-16] MEDS: SODIUM HYPOCHLORITE 0.125% 473 ML BTL IRR SCH ×2 (13:08→21:15)
--- NOTE | 2016-09-16 14:23 | PN ---
Date/Time of Note Date/Time of Note DATE: 09/16/16 TIME: 14:22 Assessment/Plan VTE Prophylaxis VTE Prophylaxis Intervention: other Lines/Catheters IV [facility] Peripheral IV Urinary Cath still in place: No Assessment/Plan Chief Complaint/Hosp Course IMPRESSION: 1. Anemia, symptomatic. 2. The patient has hidradenitis suppurativa.s/p i and d 3. Diabetes mellitus. 4. Dyslipidemia. 5. Hypertension. 6. Anemia. 7. sepsis. 8 gi bleed plan per gi and surgery antibiotic and wound care tr to [facility] Problems: Subjective 24 Hr Interval Summary Eyes: no complaints ENT: no complaints Exam/Review of Systems Vital Signs Vitals Vital Signs Date Time Temp Pulse Resp B/P Pulse Ox O2 Delivery O2 Flow Rate FiO2 09/16/16 08:06 98.1 65 18 105/51 98 09/13/16 22:30 Nasal Cannula 3.0 Intake and Output 09/15/16 09/15/16 09/16/16 15:00 23:00 07:00 Intake Total 1730 ml Output Total 500 ml Balance 1230 ml Exam Neck: supple Respiratory: clear to auscultation Cardiovascular: regular rate and rhythm Gastrointestinal: soft Extremities: No edema Results Result Diagram: 09/15/16 0816 09/16/16 0510 Results 24 hrs Laboratory Tests Test 09/15/16 16:42 09/15/16 20:19 09/16/16 05:10 09/16/16 07:15 Bedside Glucose 179 168 155 Blood Urea Nitrogen 11 Creatinine 0.59 L Test 09/16/16 11:19 Bedside Glucose 140 Medications Medications Current Medications Pantoprazole (Protonix Iv) 40 mg BID@06,18 IV Last administered on 09/16/16 05: 24; Admin Dose 40 MG; Start 09/12/16 at 06:00 Acetaminophen (Tylenol Tab) 650 mg Q6H PRN PO PAIN AND OR ELEVATED TEMP; Start 09/12/16 at 01:30 Ondansetron HCl 4 mg 4 mg Q6H PRN IV NAUSEA AND/OR VOMITING; Start 09/12/16 at 01:30 Levofloxacin/ Dextrose 150 ml @ 100 mls/hr Q24H IVPB Last administered on 04:44; Admin Dose 100 MLS/HR; Start 09/12/16 at 04:00 Dextrose/Sodium Chloride (D5-NS) 1,000 ml @ 75 mls/hr [id number] IV Last administered on 09/16/16 13:08; Admin Dose 75 MLS/HR; Start 09/12/16 at 04:00 Hydromorphone HCl (Dilaudid) 2 mg Q4H PRN IV PAIN Last administered on 05:31; Admin Dose 2 MG; Start 09/12/16 at 18:00 Morphine Sulfate (Ms Contin (Er)) 15 mg BID PO Last administered on 09/16/16 08 :11; Admin Dose 15 MG; Start 09/12/16 at 21:00 Diagnostic Test (Pha) (Accucheck) 1 ea 02 XX ; Start 09/14/16 at 02:00 Miscellaneous Information 1 ea NOTE XX ; Start 09/13/16 at 20:00 Glucose (Glutose) 15 gm Q15M PRN PO DECREASED GLUCOSE; Start 09/13/16 at 20:00 Glucose (Glutose) 22.5 gm Q15M PRN PO DECREASED GLUCOSE; Start 09/13/16 at 20: 00 Dextrose (D50w Syringe) 25 ml Q15M PRN IV DECREASED GLUCOSE; Start 09/13/16 at 20:00 Dextrose (D50w Syringe) 50 ml Q15M PRN IV DECREASED GLUCOSE; Start 09/13/16 at 20:00 Glucagon (Glucagen) 1 mg Q15M PRN IM DECREASED GLUCOSE; Start 09/13/16 at 20: 00 Glucose (Glutose) 15 gm Q15M PRN BUCCAL DECREASED GLUCOSE; Start 09/13/16 at 20:00 Sodium Hypochlorite 1 applic 1 applic BID IRR Last administered on 09/16/16 13: 08; Admin Dose 1 APPLIC; Start 09/15/16 at 09:00 Vancomycin HCl/ Sodium Chloride (Vancocin/NS) 250 ml @ 83.333 mls/ hr Q12 IVPB Last administered on 09/16/16 08:30; Admin Dose 83.333 MLS/HR; Start 09/15/16 at 21:00 TAMARA SMITH MD Sep 16, 2016 14:23
[2016-09-16 20:25] VITALS: BP 104/51; RESP 18
--- NOTE | 2016-09-16 23:58 | PN ---
Date/Time of Note Date/Time of Note DATE: 09/16/16 TIME: 23:57 Assessment/Plan Lines/Catheters IV Catheter Type (from [facility]): Peripheral IV Rahman in Place (from [facility]): No Assessment/Plan Chief Complaint/Hosp Course 1. Bilateral hidradenitis suppurativa with acute infection and purulent discharge with involvement of the scrotum. Urologic consult patient noted and appreciated. s/p I&D 09/13 -Antibiotics. -Nutrition optimization -Vit C -Off load -Local care -Plastic surgical consultation pending as outpt. 2. Significant anemia, iron deficiency, with Gastritis and PUD s/p Colonoscopy and EGD. s/p pRBC. -ppi -monitor -prbc prn 3. Hypoalbuminemia is probably multifactorial; however, he will benefit from optimization of his nutrition. 4. Hypertension. Continue diet and medication control. 4. Diabetes. Continue diet and medication control. 5. Hypercholesterolemia. Continue diet and medication control. Thank you Problems: Subjective 24 Hr Interval Summary Min pain at surgical site. No abdominal pain. No nausea vomiting. No fevers or chills. No chest pain or shortness of breath. No visual or neurologic changes. No dysuria. Exam/Review of Systems Vital Signs Vitals Vital Signs Date Time Temp Pulse Resp B/P Pulse Ox O2 Delivery O2 Flow Rate FiO2 09/16/16 20:25 98.2 73 18 104/51 97 09/13/16 22:30 Nasal Cannula 3.0 Intake and Output 09/15/16 09/15/16 09/16/16 15:00 23:00 07:00 Intake Total 1730 ml Output Total 500 ml Balance 1230 ml Exam Free Text/Dictation GENERAL: No acute distress, comfortable, pleasant. HEENT: Pupils equal, reactive. No scleral icterus. Mucous membranes are moist. NECK: Supple, no JVD. PULMONARY: No respiratory distress with normal respiratory effort. No wheezing. CARDIAC: S1, S2 present. ABDOMEN: Soft, nontender. GENITOURINARY: Bilateral inguinal and partial scrotal induration. Roel drains. Dressings SKIN: No rashes or jaundice; however hidradenitis bilateral inguinal and buttocks with roel drains and packing gauze VASCULAR: Capillary refill is 2 seconds. NEUROLOGIC: Alert, oriented, moves all 4 extremities grossly. Results Result Diagram: 09/15/16 0816 09/16/16 0510 STARR MISHRA MD Sep 16, 2016 23:58
[2016-09-17] MEDS: ACCUCHECK XX SCH (02:00)
[2016-09-17] MEDS: LEVOFLOXACIN 750MG/D5W (PMX) 150 ML IVPB SCH (03:59)
[2016-09-17] MEDS: DEXTROSE 5%-0.9% NACL 1,000 ML IV SCH ×2 (03:59→17:20)
[2016-09-17 06:06] LABS: BASOPHILS % 0.3 % (0.0-2.0); EOSINOPHILS # 0.3 10^3/ul (0.0-0.5); EOSINOPHILS % 3.3 % (0.0-7.0); HEMOGLOBIN 7.5 g/dl (14.0-18.0); LYMPHOCYTES # 0.9 10^3/ul (0.8-2.9); LYMPHOCYTES % 10.4 % (15.0-51.0); MEAN CORPUSCULAR HEMOGLOBIN 24.8 pg (29.0-33.0); MEAN CORPUSCULAR HGB CONC 32.4 g/dl (32.0-37.0); MEAN CORPUSCULAR VOLUME 76.6 fl (82.0-101.0); MEAN PLATELET VOLUME 7.2 fl (7.4-10.4); MONOCYTE # 0.5 10^3/ul (0.3-0.9); MONOCYTES % 5.6 % (0.0-11.0); NEUTROPHILS % 80.4 % (39.0-77.0); PLATELET COUNT 274 10^3/UL (140-440); RED CELL DISTRIBUTION WIDTH 20.4 % (11.5-14.5); UNCORRECTED WBC 8.8 10^3/ul (4.8-10.8); WHITE BLOOD COUNT 8.8 10^3/ul (4.8-10.8)
[2016-09-17 06:08] LABS: CONDITION 1; LH ANALYZER COMMENTS 1
[2016-09-17] MEDS: PANTOPRAZOLE 40 MG INJ IV SCH ×2 (06:28→17:46)
[2016-09-17] MEDS: HYDROmorphONE 2 MG/ML SYG IV PRN ×2 (07:01→17:50)
[2016-09-17 07:27] VITALS: BP 106/59; RESP 16
[2016-09-17] MEDS: morphine (ER) 15 MG TAB PO SCH ×2 (09:00→20:30)
[2016-09-17] MEDS: SODIUM HYPOCHLORITE 0.125% 473 ML BTL IRR SCH ×3 (09:00→21:00)
[2016-09-17] MEDS: INSULIN ASPART [NOVOLOG] 3 ML PEN SC SCH ×4 (09:04→20:32)
[2016-09-17] MEDS: VANCOMYCIN 1.25 GM in SOD CHLORIDE 0.9% 250 ML IVPB SCH ×2 (09:14→20:31)
--- NOTE | 2016-09-17 12:58 | CONS ---
Date/Time of Note Date/Time of Note DATE: 09/17/16 TIME: 12:57 Assessment/Plan Assessment/Plan Additional Assessment/Plan 1. Bilateral hidradenitis suppurativa with acute infection and purulent discharge with involvement of the scrotum. Urologic consult patient noted and appreciated. s/p I&D 09/13 -Continue antibiotics. -Nutrition optimization -Vit C -Off load -Local care -Plastic surgical consultation pending as outpt. 2. Significant anemia, iron deficiency, with Gastritis and PUD s/p Colonoscopy and EGD. s/p pRBC. - continue protonix 40 mg bid for at least 1 month - as colonoscopy was not completed, will need to repeat when EGD is repeated by Dr. Lyn 3. Hypoalbuminemia is probably multifactorial; - nutrition/dietitian to optimize his diet - advance diet as tolerated 4. Diabetes. Continue diet and medication control. 5. Hypercholesterolemia. Continue diet and medication control. 6. Constipation: give a dose of miralax today. 7.will need capsule endoscopy as op Consultation Date/Type/Reason Admit Date/Time Sep 12, 2016 at 00:10 Initial Consult Date Type of Consultation: GI 24 HR Interval Summary Constitutional: no complaints Exam/Review of Systems Vital Signs Vitals Vital Signs Date Time Temp Pulse Resp B/P Pulse Ox O2 Delivery O2 Flow Rate FiO2 09/17/16 07:27 98.3 77 16 106/59 96 09/13/16 22:30 Nasal Cannula 3.0 Intake and Output 09/16/16 09/16/16 09/17/16 15:00 23:00 07:00 Intake Total 475 ml 1171.33 ml 1116.66 ml Output Total 600 ml 650 ml Balance 475 ml 571.33 ml 466.66 ml Exam Constitutional: alert, oriented, well developed Psych: nl mood/affect, no complaints Head: atraumatic, normocephalic Eyes: EOMI, PERRL, nl conjunctiva, nl lids, nl sclera ENMT: nl external ears & nose, nl lips & teeth, nl nasal mucosa & septum Neck: non-tender, supple Respiratory: clear to auscultation, normal air movement Cardiovascular: nl pulses, regular rate and rhythm Gastrointestinal: nl liver, spleen, non-tender, soft Musculoskeletal: nl extremities to inspection, nl gait and stance Extremities: normal pulses Neurological: [employer] II-XII intact, nl mental status, nl speech, nl strength Skin: nl turgor, No rash or lesions Lymph: nl lymph nodes Results Result Diagram: 09/17/16 0510 09/16/16 0510 Results 24 hrs Laboratory Tests Test 09/16/16 16:23 09/16/16 21:12 09/17/16 02:04 09/17/16 05:10 Bedside Glucose 160 200 110 Basophils # 0.0 Basophils % 0.3 Blood Morphology Comment Eosinophils # 0.3 Eosinophils % 3.3 Hematocrit 23.0 L Hemoglobin 7.5 L Lymphocytes # 0.9 Lymphocytes % 10.4 L Mean Corpuscular Hemoglobin 24.8 L Mean Corpuscular Hemoglobin Concent 32.4 Mean Corpuscular Volume 76.6 L Mean Platelet Volume 7.2 L Monocytes # 0.5 Monocytes % 5.6 Neutrophils # 7.0 Neutrophils % 80.4 H Nucleated Red Blood Cells # 0.0 Nucleated Red Blood Cells % 0.0 Platelet Count 274 Red Blood Count 3.00 L Red Cell Distribution Width 20.4 H White Blood Count 8.8 Test 09/17/16 07:45 09/17/16 08:05 09/17/16 12:09 Vancomycin Level Trough 14.2 Bedside Glucose 155 178 Medications Medications Current Medications Pantoprazole (Protonix Iv) 40 mg BID@06,18 IV Last administered on 09/17/16 06: 28; Admin Dose 40 MG; Start 09/12/16 at 06:00 Acetaminophen (Tylenol Tab) 650 mg Q6H PRN PO PAIN AND OR ELEVATED TEMP; Start 09/12/16 at 01:30 Ondansetron HCl 4 mg 4 mg Q6H PRN IV NAUSEA AND/OR VOMITING; Start 09/12/16 at 01:30 Levofloxacin/ Dextrose 150 ml @ 100 mls/hr Q24H IVPB Last administered on 03:59; Admin Dose 100 MLS/HR; Start 09/12/16 at 04:00 Dextrose/Sodium Chloride (D5-NS) 1,000 ml @ 75 mls/hr [id number] IV Last administered on 09/17/16 03:59; Admin Dose 75 MLS/HR; Start 09/12/16 at 04:00 Hydromorphone HCl (Dilaudid) 2 mg Q4H PRN IV PAIN Last administered on 07:01; Admin Dose 2 MG; Start 09/12/16 at 18:00 Morphine Sulfate (Ms Contin (Er)) 15 mg BID PO Last administered on 09/16/16 21 :15; Admin Dose 15 MG; Start 09/12/16 at 21:00 Diagnostic Test (Pha) (Accucheck) 1 ea 02 XX ; Start 09/14/16 at 02:00 Miscellaneous Information 1 ea NOTE XX ; Start 09/13/16 at 20:00 Glucose (Glutose) 15 gm Q15M PRN PO DECREASED GLUCOSE; Start 09/13/16 at 20:00 Glucose (Glutose) 22.5 gm Q15M PRN PO DECREASED GLUCOSE; Start 09/13/16 at 20: 00 Dextrose (D50w Syringe) 25 ml Q15M PRN IV DECREASED GLUCOSE; Start 09/13/16 at 20:00 Dextrose (D50w Syringe) 50 ml Q15M PRN IV DECREASED GLUCOSE; Start 09/13/16 at 20:00 Glucagon (Glucagen) 1 mg Q15M PRN IM DECREASED GLUCOSE; Start 09/13/16 at 20: 00 Glucose (Glutose) 15 gm Q15M PRN BUCCAL DECREASED GLUCOSE; Start 09/13/16 at 20:00 Sodium Hypochlorite 1 applic 1 applic BID IRR Last administered on 09/16/16 21: 15; Admin Dose 1 APPLIC; Start 09/15/16 at 09:00 Vancomycin HCl/ Sodium Chloride (Vancocin/NS) 250 ml @ 83.333 mls/ hr Q12 IVPB Last administered on 09/17/16 09:14; Admin Dose 83.333 MLS/HR; Start 09/15/16 at 21:00 GEORGI LYN MD Sep 17, 2016 12:58
--- NOTE | 2016-09-17 15:44 | PDOCDIS ---
Discharge Instructions CONDITION Patient Condition: Stable HOME CARE INSTRUCTIONS: Special Diet: 1800 ada ACTIVITY: Activity Restrictions: Slowly Increase Activity FOLLOW UP/APPOINTMENTS Appointments see own pcp [address] raudel miller 2 wkTAMARA Alvares MD Sep 17, 2016 15:44
[2016-09-17] MEDS ORDERED: VANC1PLA9 IV (15:48)
[2016-09-17] MEDS ORDERED: DOXY100T20 PO (15:48)
[2016-09-17] MEDS ORDERED: LIDOCAINE 1% (MDV) 20 ML INJ SC ONE (16:00)
--- NOTE | 2016-09-17 16:11 | PDOCDIS ---
Discharge Instructions CONDITION Patient Condition: Stable HOME CARE INSTRUCTIONS: Special Diet: 1800 ada ACTIVITY: Activity Restrictions: Slowly Increase Activity FOLLOW UP/APPOINTMENTS Appointments f/u plastic surgery out pt [facility] referral or dr aung fletcher wound care at [facility] TAMARA SMITH MD Sep 17, 2016 16:11
--- NOTE | 2016-09-17 16:27 | PN ---
Date/Time of Note Date/Time of Note DATE: 09/17/16 TIME: 16:23 Assessment/Plan VTE Prophylaxis VTE Prophylaxis Intervention: other Lines/Catheters IV [facility] Type (from [facility] Peripheral IV Urinary Cath still in place: No Assessment/Plan Chief Complaint/Hosp Course IMPRESSION: 1. Anemia, stable 2. The patient has hidradenitis suppurativa.s/p i and d 3. Diabetes mellitus. 4. Dyslipidemia. 5. Hypertension. 6. Anemia. 7. sepsis. 8 gi bleed plan per gi antibiotic and wound care snf refused by pt Problems: Subjective 24 Hr Interval Summary Cardiovascular: no complaints Gastrointestinal: no complaints Exam/Review of Systems Vital Signs Vitals Vital Signs Date Time Temp Pulse Resp B/P Pulse Ox O2 Delivery O2 Flow Rate FiO2 09/17/16 07:27 98.3 77 16 106/59 96 09/13/16 22:30 Nasal Cannula 3.0 Intake and Output 09/16/16 09/16/16 09/17/16 15:00 23:00 07:00 Intake Total 475 ml 1171.33 ml 1116.66 ml Output Total 600 ml 650 ml Balance 475 ml 571.33 ml 466.66 ml Exam Neck: supple Respiratory: clear to auscultation Cardiovascular: regular rate and rhythm Gastrointestinal: soft Extremities: No edema Skin: other (groin wound+) Results Result Diagram: 09/17/16 0510 09/16/16 0510 Results 24 hrs Laboratory Tests Test 09/16/16 21:12 09/17/16 02:04 09/17/16 05:10 09/17/16 07:45 Bedside Glucose 200 110 Basophils # 0.0 Basophils % 0.3 Blood Morphology Comment Eosinophils # 0.3 Eosinophils % 3.3 Hematocrit 23.0 L Hemoglobin 7.5 L Lymphocytes # 0.9 Lymphocytes % 10.4 L Mean Corpuscular Hemoglobin 24.8 L Mean Corpuscular Hemoglobin Concent 32.4 Mean Corpuscular Volume 76.6 L Mean Platelet Volume 7.2 L Monocytes # 0.5 Monocytes % 5.6 Neutrophils # 7.0 Neutrophils % 80.4 H Nucleated Red Blood Cells # 0.0 Nucleated Red Blood Cells % 0.0 Platelet Count 274 Red Blood Count 3.00 L Red Cell Distribution Width 20.4 H White Blood Count 8.8 Vancomycin Level Trough 14.2 Test 09/17/16 08:05 09/17/16 12:09 Bedside Glucose 155 178 Medications Medications Current Medications Pantoprazole (Protonix Iv) 40 mg BID@06,18 IV Last administered on 09/17/16 06: 28; Admin Dose 40 MG; Start 09/12/16 at 06:00 Acetaminophen (Tylenol Tab) 650 mg Q6H PRN PO PAIN AND OR ELEVATED TEMP; Start 09/12/16 at 01:30 Ondansetron HCl 4 mg 4 mg Q6H PRN IV NAUSEA AND/OR VOMITING; Start 09/12/16 at 01:30 Levofloxacin/ Dextrose 150 ml @ 100 mls/hr Q24H IVPB Last administered on 03:59; Admin Dose 100 MLS/HR; Start 09/12/16 at 04:00 Dextrose/Sodium Chloride (D5-NS) 1,000 ml @ 75 mls/hr [id number] IV Last administered on 09/17/16 03:59; Admin Dose 75 MLS/HR; Start 09/12/16 at 04:00 Hydromorphone HCl (Dilaudid) 2 mg Q4H PRN IV PAIN Last administered on 07:01; Admin Dose 2 MG; Start 09/12/16 at 18:00 Morphine Sulfate (Ms Contin (Er)) 15 mg BID PO Last administered on 09/16/16 21 :15; Admin Dose 15 MG; Start 09/12/16 at 21:00 Diagnostic Test (Pha) (Accucheck) 1 ea 02 XX ; Start 09/14/16 at 02:00 Miscellaneous Information 1 ea NOTE XX ; Start 09/13/16 at 20:00 Glucose (Glutose) 15 gm Q15M PRN PO DECREASED GLUCOSE; Start 09/13/16 at 20:00 Glucose (Glutose) 22.5 gm Q15M PRN PO DECREASED GLUCOSE; Start 09/13/16 at 20: 00 Dextrose (D50w Syringe) 25 ml Q15M PRN IV DECREASED GLUCOSE; Start 09/13/16 at 20:00 Dextrose (D50w Syringe) 50 ml Q15M PRN IV DECREASED GLUCOSE; Start 09/13/16 at 20:00 Glucagon (Glucagen) 1 mg Q15M PRN IM DECREASED GLUCOSE; Start 09/13/16 at 20: 00 Glucose (Glutose) 15 gm Q15M PRN BUCCAL DECREASED GLUCOSE; Start 09/13/16 at 20:00 Sodium Hypochlorite 1 applic 1 applic BID IRR Last administered on 09/16/16 21: 15; Admin Dose 1 APPLIC; Start 09/15/16 at 09:00 Vancomycin HCl/ Sodium Chloride (Vancocin/NS) 250 ml @ 83.333 mls/ hr Q12 IVPB Last administered on 09/17/16 09:14; Admin Dose 83.333 MLS/HR; Start 09/15/16 at 21:00 TAMARA SMITH MD Sep 17, 2016 16:27
--- NOTE | 2016-09-17 20:00 | RADRPT ---
PROCEDURE: XR Chest. CLINICAL INDICATION: PICC line placement. TECHNIQUE: 2 frontal chest x-rays COMPARISON: Chest x-ray dated 09/12/2016 FINDINGS: Significant increase interstitial opacification is seen within the lungs, right greater than left. This is worse when compared to prior study. Volume overload and pulmonary edema could have this delio earance. Interstitial pneumonia is a possibility. Right-sided PICC line has been placed and the ti p is in the superior vena cava, in good position. Metallic stent is seen within the thoracic aorta. No pleural effusion or pneumothorax is identified. The heart size is within normal limits. Multi level degenerative spondylosis of the spine is present. IMPRESSION: 1. New right-sided PICC line in good position with the tip in the superior vena cava, without evide nce for pneumothorax but 2. Interval worsening interstitial opacification / edema scattered throughout the lungs bilaterally . RPTAT: PP .Jorge Alberto Jarrett MD, MD Date Time Electronically viewed and signed by .Jorge Alberto Jarrett MD, on 09/17/2016 20:00 .B/
[2016-09-17 20:48] VITALS: BP 108/54; RESP 19
--- NOTE | 2016-09-17 21:07 | PN ---
Date/Time of Note Date/Time of Note DATE: 09/17/16 TIME: 21:06 Assessment/Plan Lines/Catheters IV Catheter Type (from [facility]): PICC Line Rahman in Place (from [facility]): No Assessment/Plan Chief Complaint/Hosp Course 1. Bilateral hidradenitis suppurativa with acute infection and purulent discharge with involvement of the scrotum. Urologic consult patient noted and appreciated. s/p I&D 09/13 -Antibiotics. -Nutrition optimization -Vit C -Off load -Local care -Plastic surgical consultation pending as outpt. 2. Significant anemia, iron deficiency, with Gastritis and PUD s/p Colonoscopy and EGD. s/p pRBC. -ppi -monitor -prbc prn 3. Hypoalbuminemia is probably multifactorial; however, he will benefit from optimization of his nutrition. 4. Hypertension. Continue diet and medication control. 4. Diabetes. Continue diet and medication control. 5. Hypercholesterolemia. Continue diet and medication control. Thank you Problems: Subjective 24 Hr Interval Summary Min pain at surgical site. No abdominal pain. No nausea vomiting. No fevers or chills. No chest pain or shortness of breath. No visual or neurologic changes. No dysuria. Exam/Review of Systems Vital Signs Vitals Vital Signs Date Time Temp Pulse Resp B/P Pulse Ox O2 Delivery O2 Flow Rate FiO2 09/17/16 20:48 98.0 65 19 108/54 97 09/13/16 22:30 Nasal Cannula 3.0 Intake and Output 09/16/16 09/16/16 09/17/16 15:00 23:00 07:00 Intake Total 475 ml 1171.33 ml 1116.66 ml Output Total 600 ml 650 ml Balance 475 ml 571.33 ml 466.66 ml Exam Free Text/Dictation GENERAL: No acute distress, comfortable, pleasant. HEENT: Pupils equal, reactive. No scleral icterus. Mucous membranes are moist. NECK: Supple, no JVD. PULMONARY: No respiratory distress with normal respiratory effort. No wheezing. CARDIAC: S1, S2 present. ABDOMEN: Soft, nontender. GENITOURINARY: Bilateral inguinal and partial scrotal induration. Roel drains. Dressings SKIN: No rashes or jaundice; however hidradenitis bilateral inguinal and buttocks with roel drains and packing gauze VASCULAR: Capillary refill is 2 seconds. NEUROLOGIC: Alert, oriented, moves all 4 extremities grossly. Results Result Diagram: 09/17/16 0510 09/16/16 0510 STARR MISHRA MD Sep 17, 2016 21:07
--- NOTE | 2016-09-17 22:55 | RADRPT ---
PROCEDURE: Ultrasound guidance for placement of needle in right upper extremity vein. CLINICAL INDICATION: Venous access. TECHNIQUE: Limited sonography of the right upper extremity was performed. Ultrasound images were recorded and stored in the patient's medical record. COMPARISON: None. FINDINGS: The ultrasound images demonstrate a patent right upper extremity vein. The PICC line was inserted b y the PICC line nurse. IMPRESSION: 1. Ultrasound guidance for a needle placement in a right upper extremity vein. 2. The visualized right upper extremity vein is patent. RPTAT: QQ .Kenny Mohr MD, MD Date Time Electronically viewed and signed by .Kenny Mohr MD, MD on 09/17/2016 22:55 .R/
[2016-09-18] MEDS: ACCUCHECK XX SCH (02:00)
[2016-09-18] MEDS: DEXTROSE 5%-0.9% NACL 1,000 ML IV SCH (03:10)
[2016-09-18] MEDS: LEVOFLOXACIN 750MG/D5W (PMX) 150 ML IVPB SCH (04:21)
[2016-09-18] MEDS: PANTOPRAZOLE 40 MG INJ IV SCH ×2 (06:26→17:06)
[2016-09-18 08:00] VITALS: BP 126/62; RESP 20
[2016-09-18] MEDS: morphine (ER) 15 MG TAB PO SCH ×2 (08:01→21:17)
[2016-09-18] MEDS: VANCOMYCIN 1.25 GM in SOD CHLORIDE 0.9% 250 ML IVPB SCH ×2 (08:01→21:39)
[2016-09-18] MEDS: SODIUM HYPOCHLORITE 0.125% 473 ML BTL IRR SCH ×2 (08:02→21:16)
[2016-09-18] MEDS: INSULIN ASPART [NOVOLOG] 3 ML PEN SC SCH ×4 (08:03→20:58)
[2016-09-18] MEDS: HYDROmorphONE 2 MG/ML SYG IV PRN ×2 (10:55→20:06)
[2016-09-18] MEDS ORDERED: NA PHOSPHATE/BIPHOS 133 ML ENEMA PR PRN (15:30)
[2016-09-18] MEDS ORDERED: POLYETHYLENE GLYCOL 3350 119 GM POWDER PO ONE (15:30)
[2016-09-18] MEDS ORDERED: POLYETHYLENE GLYCOL 17 GM PACKET PO SCH (17:00)
[2016-09-18 17:22] LABS: BASOPHILS % 0.2 % (0.0-2.0); EOSINOPHILS # 0.1 10^3/ul (0.0-0.5); EOSINOPHILS % 1.7 % (0.0-7.0); HEMOGLOBIN 7.4 g/dl (14.0-18.0); LYMPHOCYTES # 0.9 10^3/ul (0.8-2.9); MEAN CORPUSCULAR HEMOGLOBIN 24.7 pg (29.0-33.0); MEAN CORPUSCULAR HGB CONC 32.1 g/dl (32.0-37.0); MEAN CORPUSCULAR VOLUME 76.9 fl (82.0-101.0); MONOCYTE # 0.3 10^3/ul (0.3-0.9); MONOCYTES % 3.7 % (0.0-11.0); NEUTROPHIL # 6.8 10^3/ul (1.6-7.5); NEUTROPHILS % 83.4 % (39.0-77.0); PLATELET COUNT 244 10^3/UL (140-440); RED BLOOD COUNT 3.02 10^6/ul (4.70-6.10); RED CELL DISTRIBUTION WIDTH 20.9 % (11.5-14.5); UNCORRECTED WBC 8.2 10^3/ul (4.8-10.8); WHITE BLOOD COUNT 8.2 10^3/ul (4.8-10.8)
[2016-09-18 17:25] LABS: CONDITION 1; LH ANALYZER COMMENTS 1
[2016-09-18 17:26] LABS: HEMATOCRIT 23.2 % (42.0-52.0)
--- NOTE | 2016-09-18 18:35 | PN ---
Date/Time of Note Date/Time of Note DATE: 09/18/16 TIME: 18:34 Assessment/Plan VTE Prophylaxis VTE Prophylaxis Intervention: other Lines/Catheters IV Catheter Type (from [facility]): Peripheral IV Urinary Cath still in place: No Assessment/Plan Chief Complaint/Hosp Course IMPRESSION: 1. Anemia, stable 2. The patient has hidradenitis suppurativa.s/p i and d 3. Diabetes mellitus. 4. Dyslipidemia. 5. Hypertension. 6. Anemia. 7. sepsis. 8 gi bleed plan per gi antibiotic and wound care snf ok by pt epogen iv iron Problems: Subjective 24 Hr Interval Summary Respiratory: no complaints Cardiovascular: no complaints Exam/Review of Systems Vital Signs Vitals Vital Signs Date Time Temp Pulse Resp B/P Pulse Ox O2 Delivery O2 Flow Rate FiO2 09/18/16 08:00 98.4 84 20 126/62 98 Intake and Output 09/17/16 09/17/16 09/18/16 15:00 23:00 07:00 Intake Total 250 ml 1366.66 ml 730.33 ml Output Total 800 ml 400 ml Balance 250 ml 566.66 ml 330.33 ml Exam Neck: supple Respiratory: clear to auscultation Cardiovascular: regular rate and rhythm Extremities: other (groin wound+) Results Result Diagram: 09/18/16 1710 09/16/16 0510 Results 24 hrs Laboratory Tests Test 09/17/16 20:26 09/18/16 03:07 09/18/16 07:51 09/18/16 11:35 Bedside Glucose 241 H 125 169 141 Test 09/18/16 17:02 09/18/16 17:10 Bedside Glucose 141 Basophils # 0.0 Basophils % 0.2 Blood Morphology Comment Eosinophils # 0.1 Eosinophils % 1.7 Hematocrit 23.2 L Hemoglobin 7.4 L Lymphocytes # 0.9 Lymphocytes % 11.0 L Mean Corpuscular Hemoglobin 24.7 L Mean Corpuscular Hemoglobin Concent 32.1 Mean Corpuscular Volume 76.9 L Mean Platelet Volume 7.0 L Monocytes # 0.3 Monocytes % 3.7 Neutrophils # 6.8 Neutrophils % 83.4 H Nucleated Red Blood Cells # 0.0 Nucleated Red Blood Cells % 0.0 Platelet Count 244 Red Blood Count 3.02 L Red Cell Distribution Width 20.9 H White Blood Count 8.2 Medications Medications Current Medications Pantoprazole (Protonix Iv) 40 mg BID@06,18 IV Last administered on 09/18/16 17: 06; Admin Dose 40 MG; Start 09/12/16 at 06:00 Acetaminophen (Tylenol Tab) 650 mg Q6H PRN PO PAIN AND OR ELEVATED TEMP; Start 09/12/16 at 01:30 Ondansetron HCl 4 mg 4 mg Q6H PRN IV NAUSEA AND/OR VOMITING; Start 09/12/16 at 01:30 Levofloxacin/ Dextrose 150 ml @ 100 mls/hr Q24H IVPB Last administered on 04:21; Admin Dose 100 MLS/HR; Start 09/12/16 at 04:00 Dextrose/Sodium Chloride (D5-NS) 1,000 ml @ 75 mls/hr [id number] IV Last administered on 09/18/16 03:10; Admin Dose 75 MLS/HR; Start 09/12/16 at 04:00 Hydromorphone HCl (Dilaudid) 2 mg Q4H PRN IV PAIN Last administered on 10:55; Admin Dose 2 MG; Start 09/12/16 at 18:00 Morphine Sulfate (Ms Contin (Er)) 15 mg BID PO Last administered on 09/18/16 08 :01; Admin Dose 15 MG; Start 09/12/16 at 21:00 Diagnostic Test (Pha) (Accucheck) 1 ea 02 XX ; Start 09/14/16 at 02:00 Miscellaneous Information 1 ea NOTE XX ; Start 09/13/16 at 20:00 Glucose (Glutose) 15 gm Q15M PRN PO DECREASED GLUCOSE; Start 09/13/16 at 20:00 Glucose (Glutose) 22.5 gm Q15M PRN PO DECREASED GLUCOSE; Start 09/13/16 at 20: 00 Dextrose (D50w Syringe) 25 ml Q15M PRN IV DECREASED GLUCOSE; Start 09/13/16 at 20:00 Dextrose (D50w Syringe) 50 ml Q15M PRN IV DECREASED GLUCOSE; Start 09/13/16 at 20:00 Glucagon (Glucagen) 1 mg Q15M PRN IM DECREASED GLUCOSE; Start 09/13/16 at 20: 00 Glucose (Glutose) 15 gm Q15M PRN BUCCAL DECREASED GLUCOSE; Start 09/13/16 at 20:00 Sodium Hypochlorite 1 applic 1 applic BID IRR Last administered on 09/18/16 08: 02; Admin Dose 1 APPLIC; Start 09/15/16 at 09:00 Vancomycin HCl/ Sodium Chloride (Vancocin/NS) 250 ml @ 83.333 mls/ hr Q12 IVPB Last administered on 09/18/16 08:01; Admin Dose 83.333 MLS/HR; Start 09/15/16 at 21:00 IV Flush (NS 10 ml) 10 ml PRN PRN IV IV PROTOCOL; Start 09/17/16 at 20:30 Bisacodyl (Dulcolax) 10 mg BID PO ; Start 09/18/16 at 21:00 Sodium Biphosphate/ Sodium Phosphate (Fleet Enema) 133 ml DAILY PRN [place] CONSTIPATION; Start 09/18/16 at 15:30 Polyethylene Glycol (Miralax) 17 gm ONCE PO Last administered on 09/18/16 17:06 ; Admin Dose 17 GM; Start 09/18/16 at 17:00; Stop 09/18/16 at 23:59 Epoetin Edwin (Epogen (Neserd)) 6,000 units ONCE ONCE SC ; Start 09/18/16 at 19: 00; Stop 09/18/16 at 19:01; Status TAMARA MOSCOSO MD Sep 18, 2016 18:35
[2016-09-18] MEDS ORDERED: EPOETIN ALFA (NESRD) 3,000 UNITS/ML VIAL SC ONE (19:00)
[2016-09-18] MEDS ORDERED: SOD FERRIC GLUC COMPLX 125 MG in SOD CHLORIDE 0.9% 100 ML IVPB SCH (19:00)
--- NOTE | 2016-09-18 20:39 | CONS ---
Date/Time of Note Date/Time of Note DATE: 09/18/16 TIME: 20:37 Assessment/Plan Assessment/Plan Additional Assessment/Plan Additional Assessment/Plan 1. Bilateral hidradenitis suppurativa with acute infection and purulent discharge with involvement of the scrotum. Urologic consult patient noted and appreciated. s/p I&D 09/13 -Continue antibiotics. -Nutrition optimization -Vit C -Off load -Local care -Plastic surgical consultation pending as outpt. 2. Significant anemia, iron deficiency, with Gastritis and PUD s/p Colonoscopy and EGD. s/p pRBC. - continue protonix 40 mg bid for at least 1 month - as colonoscopy was not completed, will need to repeat when EGD is repeated by Dr. Lyn 3. Hypoalbuminemia is probably multifactorial; - nutrition/dietitian to optimize his diet - advance diet as tolerated 4. Diabetes. Continue diet and medication control. 5. Hypercholesterolemia. Continue diet and medication control. 6. Constipation: give a dose of miralax today. 7.will need capsule endoscopy as op Consultation Date/Type/Reason Admit Date/Time Sep 12, 2016 at 00:10 Type of Consultation: GI 24 HR Interval Summary Free Text/Dictation pain perianal area Constitutional: improved Exam/Review of Systems Vital Signs Vitals Vital Signs Date Time Temp Pulse Resp B/P Pulse Ox O2 Delivery O2 Flow Rate FiO2 09/18/16 08:00 98.4 84 20 126/62 98 Intake and Output 09/17/16 09/17/16 09/18/16 15:00 23:00 07:00 Intake Total 250 ml 1366.66 ml 730.33 ml Output Total 800 ml 400 ml Balance 250 ml 566.66 ml 330.33 ml Exam Constitutional: alert, oriented, well developed Psych: nl mood/affect, no complaints Head: atraumatic, normocephalic Eyes: EOMI, PERRL, nl conjunctiva, nl lids, nl sclera ENMT: nl external ears & nose, nl lips & teeth, nl nasal mucosa & septum Neck: non-tender, supple Respiratory: clear to auscultation, normal air movement Cardiovascular: nl pulses, regular rate and rhythm Gastrointestinal: nl liver, spleen, non-tender, soft Musculoskeletal: nl extremities to inspection, nl gait and stance Extremities: normal pulses Neurological: WRAPPER REWINDER II-XII intact, nl mental status, nl speech, nl strength Skin: nl turgor, No rash or lesions Lymph: nl lymph nodes Results Result Diagram: 09/18/16 1710 09/16/16 0510 Results 24 hrs Laboratory Tests Test 09/18/16 03:07 09/18/16 07:51 09/18/16 11:35 09/18/16 17:02 Bedside Glucose 125 169 141 141 Test 09/18/16 17:10 09/18/16 20:10 Basophils # 0.0 Basophils % 0.2 Blood Morphology Comment Eosinophils # 0.1 Eosinophils % 1.7 Hematocrit 23.2 L Hemoglobin 7.4 L Lymphocytes # 0.9 Lymphocytes % 11.0 L Mean Corpuscular Hemoglobin 24.7 L Mean Corpuscular Hemoglobin Concent 32.1 Mean Corpuscular Volume 76.9 L Mean Platelet Volume 7.0 L Monocytes # 0.3 Monocytes % 3.7 Neutrophils # 6.8 Neutrophils % 83.4 H Nucleated Red Blood Cells # 0.0 Nucleated Red Blood Cells % 0.0 Platelet Count 244 Red Blood Count 3.02 L Red Cell Distribution Width 20.9 H White Blood Count 8.2 Bedside Glucose 175 Medications Medications Current Medications Pantoprazole (Protonix Iv) 40 mg BID@06,18 IV Last administered on 09/18/16 17: 06; Admin Dose 40 MG; Start 09/12/16 at 06:00 Acetaminophen (Tylenol Tab) 650 mg Q6H PRN PO PAIN AND OR ELEVATED TEMP; Start 09/12/16 at 01:30 Ondansetron HCl 4 mg 4 mg Q6H PRN IV NAUSEA AND/OR VOMITING; Start 09/12/16 at 01:30 Levofloxacin/ Dextrose 150 ml @ 100 mls/hr Q24H IVPB Last administered on 04:21; Admin Dose 100 MLS/HR; Start 09/12/16 at 04:00 Dextrose/Sodium Chloride (D5-NS) 1,000 ml @ 75 mls/hr [id number] IV Last administered on 09/18/16 03:10; Admin Dose 75 MLS/HR; Start 09/12/16 at 04:00 Hydromorphone HCl (Dilaudid) 2 mg Q4H PRN IV PAIN Last administered on 20:06; Admin Dose 2 MG; Start 09/12/16 at 18:00 Morphine Sulfate (Ms Contin (Er)) 15 mg BID PO Last administered on 09/18/16 08 :01; Admin Dose 15 MG; Start 09/12/16 at 21:00 Diagnostic Test (Pha) (Accucheck) 1 ea 02 XX ; Start 09/14/16 at 02:00 Miscellaneous Information 1 ea NOTE XX ; Start 09/13/16 at 20:00 Glucose (Glutose) 15 gm Q15M PRN PO DECREASED GLUCOSE; Start 09/13/16 at 20:00 Glucose (Glutose) 22.5 gm Q15M PRN PO DECREASED GLUCOSE; Start 09/13/16 at 20: 00 Dextrose (D50w Syringe) 25 ml Q15M PRN IV DECREASED GLUCOSE; Start 09/13/16 at 20:00 Dextrose (D50w Syringe) 50 ml Q15M PRN IV DECREASED GLUCOSE; Start 09/13/16 at 20:00 Glucagon (Glucagen) 1 mg Q15M PRN IM DECREASED GLUCOSE; Start 09/13/16 at 20: 00 Glucose (Glutose) 15 gm Q15M PRN BUCCAL DECREASED GLUCOSE; Start 09/13/16 at 20:00 Sodium Hypochlorite 1 applic 1 applic BID IRR Last administered on 09/18/16 08: 02; Admin Dose 1 APPLIC; Start 09/15/16 at 09:00 Vancomycin HCl/ Sodium Chloride (Vancocin/NS) 250 ml @ 83.333 mls/ hr Q12 IVPB Last administered on 09/18/16 08:01; Admin Dose 83.333 MLS/HR; Start 09/15/16 at 21:00 IV Flush (NS 10 ml) 10 ml PRN PRN IV IV PROTOCOL; Start 09/17/16 at 20:30 Bisacodyl (Dulcolax) 10 mg BID PO ; Start 09/18/16 at 21:00 Sodium Biphosphate/ Sodium Phosphate (Fleet Enema) 133 ml DAILY PRN [place] CONSTIPATION; Start 09/18/16 at 15:30 Polyethylene Glycol 17 gm 17 gm ONCE PO Last administered on 09/18/16 17:06; Admin Dose 17 GM; Start 09/18/16 at 17:00; Stop 09/18/16 at 23:59 Ferric Sodium Gluconate Complex/ Sodium Chloride (Ferrlecit/NS) 110 ml @ 100 mls/hr Q24H IVPB Last administered on 09/18/16t 20:18; Admin Dose 100 MLS/HR; Start 09/18/16 at 19:00; Stop 09/20/16 at 20:05 GEORGI LYN MD Sep 18, 2016 20:39
[2016-09-18] MEDS: BISACODYL (EC) 5 MG TAB PO SCH (21:17)
[2016-09-18 21:25] VITALS: BP 106/50; RESP 18
--- NOTE | 2016-09-18 23:26 | PN ---
Date/Time of Note Date/Time of Note DATE: 09/18/16 TIME: 23:25 Assessment/Plan Lines/Catheters IV Catheter Type (from [facility]): PICC Line Rahman in Place (from [facility]): No Assessment/Plan Chief Complaint/Hosp Course 1. Bilateral hidradenitis suppurativa with acute infection and purulent discharge with involvement of the scrotum. Urologic consult patient noted and appreciated. s/p I&D 09/13 -Antibiotics. -Nutrition optimization -Vit C -Off load -Local care -Plastic surgical consultation pending as outpt. 2. Significant anemia, iron deficiency, with Gastritis and PUD s/p Colonoscopy and EGD. s/p pRBC. -ppi -monitor -prbc prn 3. Hypoalbuminemia is probably multifactorial; however, he will benefit from optimization of his nutrition. 4. Hypertension. Continue diet and medication control. 4. Diabetes. Continue diet and medication control. 5. Hypercholesterolemia. Continue diet and medication control. Thank you Problems: Subjective 24 Hr Interval Summary Min pain at surgical site. No abdominal pain. No nausea vomiting. No fevers or chills. No chest pain or shortness of breath. No visual or neurologic changes. No dysuria. Exam/Review of Systems Vital Signs Vitals Vital Signs Date Time Temp Pulse Resp B/P Pulse Ox O2 Delivery O2 Flow Rate FiO2 09/18/16 21:25 98.7 70 18 106/50 97 Intake and Output 09/17/16 09/17/16 09/18/16 15:00 23:00 07:00 Intake Total 250 ml 1366.66 ml 730.33 ml Output Total 800 ml 400 ml Balance 250 ml 566.66 ml 330.33 ml Exam Free Text/Dictation GENERAL: No acute distress, comfortable, pleasant. HEENT: Pupils equal, reactive. No scleral icterus. Mucous membranes are moist. NECK: Supple, no JVD. PULMONARY: No respiratory distress with normal respiratory effort. No wheezing. CARDIAC: S1, S2 present. ABDOMEN: Soft, nontender. GENITOURINARY: Bilateral inguinal and partial scrotal induration. [place] drains. Dressings SKIN: No rashes or jaundice; however hidradenitis bilateral inguinal and buttocks with roel drains and packing gauze VASCULAR: Capillary refill is 2 seconds. NEUROLOGIC: Alert, oriented, moves all 4 extremities grossly. Results Result Diagram: 09/18/16 1710 09/16/16 0510 STARR MISHRA MD Sep 18, 2016 23:25
[2016-09-19] MEDS: DEXTROSE 5%-0.9% NACL 1,000 ML IV SCH (00:47)
[2016-09-19] MEDS: ACCUCHECK XX SCH (02:00)
[2016-09-19] MEDS: LEVOFLOXACIN 750MG/D5W (PMX) 150 ML IVPB SCH (03:33)
[2016-09-19] MEDS: PANTOPRAZOLE 40 MG INJ IV SCH ×2 (05:56→17:41)
[2016-09-19] MEDS: HYDROmorphONE 2 MG/ML SYG IV PRN ×3 (05:56→18:03)
[2016-09-19 06:09] LABS: CREATININE 0.58 mg/dl (0.61-1.24)
[2016-09-19] MEDS: INSULIN ASPART [NOVOLOG] 3 ML PEN SC SCH ×3 (08:00→17:46)
[2016-09-19 08:15] VITALS: BP 114/56; RESP 19
[2016-09-19] MEDS: VANCOMYCIN 1.25 GM in SOD CHLORIDE 0.9% 250 ML IVPB SCH (08:44)
[2016-09-19] MEDS: BISACODYL (EC) 5 MG TAB PO SCH (08:45)
[2016-09-19] MEDS: SODIUM HYPOCHLORITE 0.125% 473 ML BTL IRR SCH (08:45)
[2016-09-19] MEDS: morphine (ER) 15 MG TAB PO SCH (08:52)
--- NOTE | 2016-09-19 09:56 | CONS ---
Date/Time of Note Date/Time of Note DATE: 09/19/16 TIME: 09:53 Assessment/Plan Assessment/Plan Additional Assessment/Plan 1. Bilateral hidradenitis suppurativa with acute infection and purulent discharge with involvement of the scrotum. Urologic consult patient noted and appreciated. s/p I&D 09/13 -Continue antibiotics. -Nutrition optimization -Vit C -Off load -Local care -Plastic surgical consultation pending as output. 2. Significant anemia, iron deficiency, with Gastritis and PUD s/p Colonoscopy and EGD. s/p pRBC. - continue Protonix 40 mg bid for at least 1 month - as colonoscopy was not completed, will need to repeat when EGD is repeated by Dr. Lyn 3. Hypoalbuminemia is probably multifactorial; - nutrition/dietitian to optimize his diet - advance diet as tolerated 4. Diabetes. Continue diet and medication control. 5. Hypercholesterolemia. Continue diet and medication control. 6. Constipation: give a dose of Miralax today. 7.will need capsule endoscopy as op 8.surgical f/u Consultation Date/Type/Reason Admit Date/Time Sep 12, 2016 at 00:10 Type of Consultation: GI 24 HR Interval Summary Free Text/Dictation c/o dressing to be changed,discussed with staff and they have been changing on a regular basis Constitutional: improved Exam/Review of Systems Vital Signs Vitals Vital Signs Date Time Temp Pulse Resp B/P Pulse Ox O2 Delivery O2 Flow Rate FiO2 09/19/16 08:15 98.0 65 19 114/56 97 Intake and Output 09/18/16 09/18/16 09/19/16 15:00 23:00 07:00 Intake Total 250 ml 800 ml 1780 ml Output Total 750 ml 850 ml Balance 250 ml 50 ml 930 ml Exam Constitutional: alert, oriented, well developed Psych: nl mood/affect, no complaints Head: atraumatic, normocephalic Eyes: EOMI, PERRL, nl conjunctiva, nl lids, nl sclera ENMT: nl external ears & nose, nl lips & teeth, nl nasal mucosa & septum Neck: non-tender, supple Respiratory: clear to auscultation, normal air movement Cardiovascular: nl pulses, regular rate and rhythm Gastrointestinal: nl liver, spleen, non-tender, soft Musculoskeletal: nl extremities to inspection, nl gait and stance Extremities: normal pulses Neurological: STEM SHAPER II-XII intact, nl mental status, nl speech, nl strength Skin: nl turgor, No rash or lesions Lymph: nl lymph nodes Results Result Diagram: 09/18/16 1710 09/19/16 0515 Results 24 hrs Laboratory Tests Test 09/18/16 11:35 09/18/16 17:02 09/18/16 17:10 09/18/16 20:10 Bedside Glucose 141 141 175 Basophils # 0.0 Basophils % 0.2 Blood Morphology Comment Eosinophils # 0.1 Eosinophils % 1.7 Hematocrit 23.2 L Hemoglobin 7.4 L Lymphocytes # 0.9 Lymphocytes % 11.0 L Mean Corpuscular Hemoglobin 24.7 L Mean Corpuscular Hemoglobin Concent 32.1 Mean Corpuscular Volume 76.9 L Mean Platelet Volume 7.0 L Monocytes # 0.3 Monocytes % 3.7 Neutrophils # 6.8 Neutrophils % 83.4 H Nucleated Red Blood Cells # 0.0 Nucleated Red Blood Cells % 0.0 Platelet Count 244 Red Blood Count 3.02 L Red Cell Distribution Width 20.9 H White Blood Count 8.2 Test 09/19/16 05:15 09/19/16 08:03 Blood Urea Nitrogen 8 Creatinine 0.58 L Bedside Glucose 124 Medications Medications Current Medications Pantoprazole (Protonix Iv) 40 mg BID@06,18 IV Last administered on 09/19/16 05: 56; Admin Dose 40 MG; Start 09/12/16 at 06:00 Acetaminophen (Tylenol Tab) 650 mg Q6H PRN PO PAIN AND OR ELEVATED TEMP; Start 09/12/16 at 01:30 Ondansetron HCl 4 mg 4 mg Q6H PRN IV NAUSEA AND/OR VOMITING; Start 09/12/16 at 01:30 Levofloxacin/ Dextrose 150 ml @ 100 mls/hr Q24H IVPB Last administered on 03:33; Admin Dose 100 MLS/HR; Start 09/12/16 at 04:00 Dextrose/Sodium Chloride (D5-NS) 1,000 ml @ 75 mls/hr [id number] IV Last administered on 09/19/16 00:47; Admin Dose 75 MLS/HR; Start 09/12/16 at 04:00 Hydromorphone HCl (Dilaudid) 2 mg Q4H PRN IV PAIN Last administered on 05:56; Admin Dose 2 MG; Start 09/12/16 at 18:00 Morphine Sulfate (Ms Contin (Er)) 15 mg BID PO Last administered on 09/19/16 08 :52; Admin Dose 15 MG; Start 09/12/16 at 21:00 Diagnostic Test (Pha) (Accucheck) 1 ea 02 XX ; Start 09/14/16 at 02:00 Miscellaneous Information 1 ea NOTE XX ; Start 09/13/16 at 20:00 Glucose (Glutose) 15 gm Q15M PRN PO DECREASED GLUCOSE; Start 09/13/16 at 20:00 Glucose (Glutose) 22.5 gm Q15M PRN PO DECREASED GLUCOSE; Start 09/13/16 at 20: 00 Dextrose (D50w Syringe) 25 ml Q15M PRN IV DECREASED GLUCOSE; Start 09/13/16 at 20:00 Dextrose (D50w Syringe) 50 ml Q15M PRN IV DECREASED GLUCOSE; Start 09/13/16 at 20:00 Glucagon (Glucagen) 1 mg Q15M PRN IM DECREASED GLUCOSE; Start 09/13/16 at 20: 00 Glucose (Glutose) 15 gm Q15M PRN BUCCAL DECREASED GLUCOSE; Start 09/13/16 at 20:00 Sodium Hypochlorite 1 applic 1 applic BID IRR Last administered on 09/19/16 08: 45; Admin Dose 1 APPLIC; Start 09/15/16 at 09:00 Vancomycin HCl/ Sodium Chloride (Vancocin/NS) 250 ml @ 83.333 mls/ hr Q12 IVPB Last administered on 09/19/16 08:44; Admin Dose 83.333 MLS/HR; Start 09/15/16 at 21:00 IV Flush (NS 10 ml) 10 ml PRN PRN IV IV PROTOCOL; Start 09/17/16 at 20:30 Bisacodyl (Dulcolax) 10 mg BID PO Last administered on 09/19/16 08:45; Admin Dose 10 MG; Start 09/18/16 at 21:00 Sodium Biphosphate/ Sodium Phosphate 133 ml 133 ml DAILY PRN [place] CONSTIPATION; Start 09/18/16 at 15:30 Ferric Sodium Gluconate Complex/ Sodium Chloride (Ferrlecit/NS) 110 ml @ 100 mls/hr Q24H IVPB Last administered on 09/18/16t 20:18; Admin Dose 100 MLS/HR; Start 09/18/16 at 19:00; Stop 09/20/16 at 20:05 GEORGI LYN MD Sep 19, 2016 09:56
--- NOTE | 2016-09-19 11:39 | PN ---
Date/Time of Note Date/Time of Note DATE: 09/19/16 TIME: 11:39 Assessment/Plan Lines/Catheters IV Catheter Type (from [facility]): Peripheral IV Rahman in Place (from [facility]): No Assessment/Plan Chief Complaint/Hosp Course 1. Bilateral hidradenitis suppurativa with acute infection and purulent discharge with involvement of the scrotum. Urologic consult patient noted and appreciated. s/p I&D 09/13 -Antibiotics. -Nutrition optimization -Vit C -Off load -Local care -Plastic surgical consultation pending as outpt. 2. Significant anemia, iron deficiency, with Gastritis and PUD s/p Colonoscopy and EGD. s/p pRBC. -ppi -monitor -prbc prn 3. Hypoalbuminemia is probably multifactorial; however, he will benefit from optimization of his nutrition. 4. Hypertension. Continue diet and medication control. 4. Diabetes. Continue diet and medication control. 5. Hypercholesterolemia. Continue diet and medication control. Thank you Problems: Subjective 24 Hr Interval Summary Min pain at surgical site. No abdominal pain. No nausea vomiting. No fevers or chills. No chest pain or shortness of breath. No visual or neurologic changes. No dysuria. Exam/Review of Systems Vital Signs Vitals Vital Signs Date Time Temp Pulse Resp B/P Pulse Ox O2 Delivery O2 Flow Rate FiO2 09/19/16 08:15 98.0 65 19 114/56 97 Intake and Output 09/18/16 09/18/16 09/19/16 15:00 23:00 07:00 Intake Total 250 ml 800 ml 1780 ml Output Total 750 ml 850 ml Balance 250 ml 50 ml 930 ml Exam Free Text/Dictation GENERAL: No acute distress, comfortable, pleasant. HEENT: Pupils equal, reactive. No scleral icterus. Mucous membranes are moist. NECK: Supple, no JVD. PULMONARY: No respiratory distress with normal respiratory effort. No wheezing. CARDIAC: S1, S2 present. ABDOMEN: Soft, nontender. GENITOURINARY: Bilateral inguinal and partial scrotal induration. [place] drains. Dressings SKIN: No rashes or jaundice; however hidradenitis bilateral inguinal and buttocks with roel drains and packing gauze VASCULAR: Capillary refill is 2 seconds. NEUROLOGIC: Alert, oriented, moves all 4 extremities grossly. Results Result Diagram: 09/18/16 1710 09/19/16 0515 STARR MISHRA MD Sep 19, 2016 11:39
--- NOTE | 2016-09-19 14:03 | PN ---
Date/Time of Note Date/Time of Note DATE: 09/19/16 TIME: 14:02 Assessment/Plan VTE Prophylaxis VTE Prophylaxis Intervention: other Lines/Catheters IV Catheter Type (from [facility]): Peripheral IV Urinary Cath still in place: No Reason Cath still needed: other (indicate) Assessment/Plan Chief Complaint/Hosp Course IMPRESSION: 1. Anemia, stable 2. The patient has hidradenitis suppurativa.s/p i and d 3. Diabetes mellitus. 4. Dyslipidemia. 5. Hypertension. 6. Anemia. 7. sepsis. 8 gi bleed plan per gi antibiotic and wound care snf ok by pt epogen iv iron snf Problems: Subjective 24 Hr Interval Summary Cardiovascular: no complaints Gastrointestinal: no complaints Genitourinary: no complaints Exam/Review of Systems Vital Signs Vitals Vital Signs Date Time Temp Pulse Resp B/P Pulse Ox O2 Delivery O2 Flow Rate FiO2 09/19/16 08:15 98.0 65 19 114/56 97 Intake and Output 09/18/16 09/18/16 09/19/16 15:00 23:00 07:00 Intake Total 250 ml 800 ml 1780 ml Output Total 750 ml 850 ml Balance 250 ml 50 ml 930 ml Exam Respiratory: clear to auscultation Cardiovascular: regular rate and rhythm Gastrointestinal: soft Musculoskeletal: nl extremities to inspection Results Result Diagram: 09/18/16 1710 09/19/16 0515 Results 24 hrs Laboratory Tests Test 09/18/16 17:02 09/18/16 17:10 09/18/16 20:10 09/19/16 05:15 Bedside Glucose 141 175 Basophils # 0.0 Basophils % 0.2 Blood Morphology Comment Eosinophils # 0.1 Eosinophils % 1.7 Hematocrit 23.2 L Hemoglobin 7.4 L Lymphocytes # 0.9 Lymphocytes % 11.0 L Mean Corpuscular Hemoglobin 24.7 L Mean Corpuscular Hemoglobin Concent 32.1 Mean Corpuscular Volume 76.9 L Mean Platelet Volume 7.0 L Monocytes # 0.3 Monocytes % 3.7 Neutrophils # 6.8 Neutrophils % 83.4 H Nucleated Red Blood Cells # 0.0 Nucleated Red Blood Cells % 0.0 Platelet Count 244 Red Blood Count 3.02 L Red Cell Distribution Width 20.9 H White Blood Count 8.2 Blood Urea Nitrogen 8 Creatinine 0.58 L Test 09/19/16 08:03 09/19/16 12:06 Bedside Glucose 124 133 Medications Medications Current Medications Pantoprazole (Protonix Iv) 40 mg BID@06,18 IV Last administered on 09/19/16 05: 56; Admin Dose 40 MG; Start 09/12/16 at 06:00 Acetaminophen (Tylenol Tab) 650 mg Q6H PRN PO PAIN AND OR ELEVATED TEMP; Start 09/12/16 at 01:30 Ondansetron HCl 4 mg 4 mg Q6H PRN IV NAUSEA AND/OR VOMITING; Start 09/12/16 at 01:30 Levofloxacin/ Dextrose 150 ml @ 100 mls/hr Q24H IVPB Last administered on 03:33; Admin Dose 100 MLS/HR; Start 09/12/16 at 04:00 Dextrose/Sodium Chloride (D5-NS) 1,000 ml @ 75 mls/hr [id number] IV Last administered on 09/19/16 00:47; Admin Dose 75 MLS/HR; Start 09/12/16 at 04:00 Hydromorphone HCl (Dilaudid) 2 mg Q4H PRN IV PAIN Last administered on 12:18; Admin Dose 2 MG; Start 09/12/16 at 18:00 Morphine Sulfate (Ms Contin (Er)) 15 mg BID PO Last administered on 09/19/16 08 :52; Admin Dose 15 MG; Start 09/12/16 at 21:00 Diagnostic Test (Pha) (Accucheck) 1 ea 02 XX ; Start 09/14/16 at 02:00 Miscellaneous Information 1 ea NOTE XX ; Start 09/13/16 at 20:00 Glucose (Glutose) 15 gm Q15M PRN PO DECREASED GLUCOSE; Start 09/13/16 at 20:00 Glucose (Glutose) 22.5 gm Q15M PRN PO DECREASED GLUCOSE; Start 09/13/16 at 20: 00 Dextrose (D50w Syringe) 25 ml Q15M PRN IV DECREASED GLUCOSE; Start 09/13/16 at 20:00 Dextrose (D50w Syringe) 50 ml Q15M PRN IV DECREASED GLUCOSE; Start 09/13/16 at 20:00 Glucagon (Glucagen) 1 mg Q15M PRN IM DECREASED GLUCOSE; Start 09/13/16 at 20: 00 Glucose (Glutose) 15 gm Q15M PRN BUCCAL DECREASED GLUCOSE; Start 09/13/16 at 20:00 Sodium Hypochlorite 1 applic 1 applic BID IRR Last administered on 09/19/16 08: 45; Admin Dose 1 APPLIC; Start 09/15/16 at 09:00 Vancomycin HCl/ Sodium Chloride (Vancocin/NS) 250 ml @ 83.333 mls/ hr Q12 IVPB Last administered on 09/19/16 08:44; Admin Dose 83.333 MLS/HR; Start 09/15/16 at 21:00 IV Flush (NS 10 ml) 10 ml PRN PRN IV IV PROTOCOL; Start 09/17/16 at 20:30 Bisacodyl (Dulcolax) 10 mg BID PO Last administered on 09/19/16 08:45; Admin Dose 10 MG; Start 09/18/16 at 21:00 Sodium Biphosphate/ Sodium Phosphate 133 ml 133 ml DAILY PRN [place] CONSTIPATION; Start 09/18/16 at 15:30 Ferric Sodium Gluconate Complex/ Sodium Chloride (Ferrlecit/NS) 110 ml @ 100 mls/hr Q24H IVPB Last administered on 09/18/16 20:18; Admin Dose 100 MLS/HR; Start 09/18/16 at 19:00; Stop 09/20/16 at 20:05 TAMARA SMITH MD Sep 19, 2016 14:03
--- NOTE | 2016-10-03 11:36 | QN ---
Documentation Comment [id number] TAMARA SMITH MD Oct 03, 2016 11:36
--- NOTE | 2016-10-03 15:41 | DS ---
DATE OF ADMISSION: 09/12/2016 DATE OF DISCHARGE: 09/19/2016 HOSPITAL COURSE: The patient was admitted with diagnosis of anemia, symptomatic. The patient has hidradenitis suppurativa, diabetes mellitus, dyslipidemia, hypertension, anemia, sepsis. The patient has a groin wound and decubitus in the back, and also decubitus in the sacral area. The patient has severe anemia, received blood transfusion. The patient was seen by Dr. Moseley in consultation and also Dr. Sebastian Martinez. The patient had bilateral groin abscesses, bilateral buttock abscesses secondary to hidradenitis suppurativa. The patient underwent I and D of the left groin multiloculated abscess with Ider placement and packing with gauze; I and D of the right groin multiloculated abscess with Mae placement and packing with gauze; I and D of the right buttock multiloculated abscess with Ider placement and packing; I and D of the left buttock. The patient was also seen by Dr. Moseley, underwent EGD, shows normal esophagus, normal Z-line, hiatus hernia, erosive gastritis, pangastritis, 2 duodenal ulcers , normal ampulla and second part of the duodenum. The patient had a colonoscopy , shows hemorrhoids, negative all the way up to the hepatic flexure, normal colored stool. The patient received antibiotics. The patient was cleared by the testing consultant to be discharged to SNF for wound care at the time of discharge. DISCHARGE DIAGNOSES: Include: 1. Anemia, status post blood transfusion. 2. Hidradenitis suppurativa, status post I and D of the groin and the buttock wounds. 3. Diabetes mellitus. 4. Dyslipidemia. 5. Hypertension. 6. Sepsis. 7. Gastrointestinal bleed. 8. The patient has Corynebacterium infection. 9. The patient also has streptococcus infection. 10. The patient has pain. DISCHARGE MEDICATIONS: The patient to continue on: 1. Doxycycline. 2. Vancomycin. 3. Iron sulfate. 4. Gabapentin. 5. Lopid. 6. Hydrocodone. 7. Lisinopril. 8. Metformin. 9. Senna. FOLLOWUP: The patient to follow up with Dr. Sebastian Martinez and Dr. Brand, plastic surgeon, as an outpatient. CONDITION: The patient is stable at the time of transfer to SNF. Dictated By: TAMARA SMITH MD BS/MAURIZIO Conf#: [id number] DID#: [id number] MTDD
== END 2016-09-19 18:54 | DRG 872 ==
LOC: TEL 09-12 00:10 → PP2 09-14 17:56
PROVIDERS: ADMIT Internal Medicine Nephrology; ATTEND Internal Medicine Nephrology
PROC: 30233N1 Transfusion of Nonautologous Red Blood Cells into Peripheral Vein, Percutaneous Approach (ICD-10-PCS; 2016-09-12)
PROC: 0J9C00Z Drainage of Pelvic Region Subcutaneous Tissue and Fascia with Drainage Device, Open Approach (ICD-10-PCS; 2016-09-13)
PROC: 0J9900Z Drainage of Buttock Subcutaneous Tissue and Fascia with Drainage Device, Open Approach (ICD-10-PCS; 2016-09-13)
PROC: 0DB98ZX Excision of Duodenum, Via Natural or Artificial Opening Endoscopic, Diagnostic (ICD-10-PCS; principal; 2016-09-13 13:30)
PROC: 0DB68ZX Excision of Stomach, Via Natural or Artificial Opening Endoscopic, Diagnostic (ICD-10-PCS; 2016-09-13 14:00)
PROC: 30233N1 Transfusion of Nonautologous Red Blood Cells into Peripheral Vein, Percutaneous Approach (ICD-10-PCS; 2016-09-15)
PROC: 02HV33Z Insertion of Infusion Device into Superior Vena Cava, Percutaneous Approach (ICD-10-PCS; 2016-09-17)
PROC: B548ZZA Ultrasonography of Superior Vena Cava, Guidance (ICD-10-PCS; 2016-09-17)
DX: A41.9 Sepsis, unspecified organism (principal); K26.9 Duodenal ulcer, unspecified as acute or chronic, without hemorrhage or perforation; E88.09 Other disorders of plasma-protein metabolism, not elsewhere classified; K92.2 Gastrointestinal hemorrhage, unspecified; E11.9 Type 2 diabetes mellitus without complications; I10 Essential (primary) hypertension; L02.214 Cutaneous abscess of groin; L02.31 Cutaneous abscess of buttock; L73.2 Hidradenitis suppurativa; Z79.4 Long term (current) use of insulin; E78.5 Hyperlipidemia, unspecified; D50.9 Iron deficiency anemia, unspecified; F17.200 Nicotine dependence, unspecified, uncomplicated; B96.89 Other specified bacterial agents as the cause of diseases classified elsewhere; B95.0 Streptococcus, group A, as the cause of diseases classified elsewhere; Z16.11 Resistance to penicillins; Z16.21 Resistance to vancomycin; K29.60 Other gastritis without bleeding; K44.9 Diaphragmatic hernia without obstruction or gangrene; K64.9 Unspecified hemorrhoids; K59.00 Constipation, unspecified
CPT/HCPCS: 36430; 36569; 71010; 76937; 80053; 80202; 82565; 82962; 83540; 84520; 85025; 85610; 86644; 86850; 86900; 86901; 86920; 87070; 87081; 88305; 88312; 93005; C1769; C9113; J0690; J0885; J1170; J1815; J1956; J2250; J2270; J2370; J2405; J2916; J3010; J3370; J7042; J7050; P9016

== ENCOUNTER 2016-09-20 11:32 | Inpatient (IN) | END 2016-10-07 16:20 | DRG 607 | DX: L73.2 Hidradenitis suppurativa (principal); I10 Essential (primary) hypertension; E88.09 Other disorders of plasma-protein metabolism, not elsewhere classified; L03.314 Cellulitis of groin; E11.9 Type 2 diabetes mellitus without complications; A48.8 Other specified bacterial diseases; L03.317 Cellulitis of buttock; E78.00 Pure hypercholesterolemia, unspecified; D50.9 Iron deficiency anemia, unspecified ==

== ENCOUNTER 2016-12-30 20:26 | Emergency (ER) | payer SELFPAY ==
[~2016-12-30] VITALS: Wt 73.5 kg
[~2016-12-30 20:26] MED LIST: DOXY100T20 PO; FER325 PO; GABA300C16 PO; GEMF600T60 PO; HYDR-906 PO; LISI-313 PO; METF500T4 PO; SENN-53 PO; VANC1PLA9 IV
[2016-12-31] MEDS ORDERED: ASPI-664 PO (16:00)
[2016-12-31] MEDS ORDERED: DICL75TA2 PO (16:01)
[2016-12-31] MEDS ORDERED: SIMV20TA PO (16:02)
== END 2016-12-30 23:47 | disposition left against medical advice (07) ==
LOC: E/R 20:26
DX: Z53.21 Procedure and treatment not carried out due to patient leaving prior to being seen by health care provider (principal)

== ENCOUNTER 2016-12-31 13:47 | Inpatient (IN) | payer BC ==
[~2016-12-31] VITALS: Ht 177.8 cm; Wt 74.9 kg
--- NOTE | 2016-12-31 14:32 | ERA ---
ER Documentation Chief Complaint Date/Time DATE: 12/31/16 TIME: 14:31 Chief Complaint Pt BIB by [facility] transfer from [place] for cellulitis management. HPI The patient is a 61-year-old male, presenting to the ER because of chronic infection of bilateral groin and right buttock for about a year and a half. He was on outpatient p.o. antibiotic with minimal response. He was referred by general surgeon Dr. Martinez yesterday who recommended to be admitted for IV antibiotic. He was admitted in September 2016 for similar symptoms. He denies fever, chills, neck pain, chest pain, dyspnea, abdominal pain, dysuria, diarrhea , constipation. He smokes, denies drinking Past medical history: Hypertension, diabetes mellitus, dyslipidemia, anemia, chronic pain syndrome, CAD, chronic bilateral groin and right buttock suppurative hidradenitis Past surgical history: Stent PCI ROS All systems reviewed and are negative except as per history of present illness. Medications Home Meds Reported Medications Simvastatin* (Zocor*) 20 Mg Tablet, 20 MG PO QHS, #30 TAB 12/31/16 Diclofenac Sodium* (Diclofenac Sodium*) 75 Mg Tablet.dr, 75 MG PO TID, #90 TAB 12/31/16 Aspirin* (Aspirin* EC) 81 Mg Tablet.dr, 81 MG PO DAILY, TAB 12/31/16 Hydrocodone/Acetaminophen ([place] 5-325 Tablet) 1 Each Tablet, 1 EACH PO 1 tablet po Q4H PRN , TAB 09/12/16 Gemfibrozil* (Gemfibrozil*) 600 Mg Tablet, 600 MG PO BID, TAB 09/12/16 Metformin* (Glucophage*) 500 Mg Tab, 500 MG PO WITH BREAKFAST DINNE, #30 TAB 09/12/16 Lisinopril* (Lisinopril*) 5 Mg Tablet, 5 MG PO DAILY, #30 TAB 09/12/16 Gabapentin* (Gabapentin*) 300 Mg Capsule, 300 MG PO BID, #60 CAP 09/12/16 Ferrous Sulfate* (Ferrous Sulfate*) 325 Mg Tabec, 325 MG PO BID, TAB 09/12/16 Discontinued Reported Medications Sennosides* (Senna Lax*) 8.6 Mg Tablet, 1 TAB PO BID, TAB 09/12/16 Discontinued Scripts Doxycycline Hyclate* (Doxycycline Hyclate*) 100 Mg Tablet.dr, 100 MG PO BID for 10 Days, TAB Prov:TAMARA SMITH MD 09/17/16 Vancomycin/0.9 % Sod Chloride (Vanco 1 Gram/250 ml-0.9% NaCl) 1 Gm/250 Ml Plast..bag, 1 GM IV DAILY for 14 Days Prov:TAMARA SMITH MD 09/17/16 Allergies Allergies: Coded Allergies: Penicillins (Verified Allergy, Unknown, 12/31/16) PMhx/Soc History of Surgery: Yes (Aug) Anesthesia Reaction: No Hx Neurological Disorder: Yes Hx Respiratory Disorders: No Hx Cardiac Disorders: No Hx Psychiatric Problems: No Hx Miscellaneous Medical Probl: No (HTN, DM, cholesterol) Hx Alcohol Use: No Hx Substance Use: No Hx Tobacco Use: Yes Smoking Status: Current every day smoker Physical Exam Vitals Vital Signs Date Time Temp Pulse Resp B/P Pulse Ox O2 Delivery O2 Flow Rate FiO2 12/31/16 19:46 98.3 74 18 116/68 99 Room Air 12/31/16 16:55 98.5 72 16 122/72 99 Room Air 12/31/16 14:23 98.6 80 18 111/58 99 Physical Exam Const: No acute distress. Head: Atraumatic. Eyes: Normal Conjunctiva. ENT: Normal External Ears, Nose and Mouth. Neck: Full range of motion. No meningismus. Resp: Clear to auscultation bilaterally. Cardio: Regular rate and rhythm, no murmurs. Abd: Soft, non distended, normal bowel sounds, non tender. Skin: No petechiae or rashes. Back: No midline or flank tenderness. Ext: No cyanosis, or edema. Neur: Awake and alert. No focal deficit Psych: Normal Mood and Affect. Genitourinary: Chronic erythema of bilateral groin and right buttock Result Diagram: 12/31/16 1500 12/31/16 1500 Results 24 hrs Laboratory Tests Test 12/31/16 15:00 12/31/16 16:30 White Blood Count 6.310^3/ul Red Blood Count 3.4410^6/ul Hemoglobin 8.8g/dl Hematocrit 28.5% Mean Corpuscular Volume 82.8fl Mean Corpuscular Hemoglobin 25.6pg Mean Corpuscular Hemoglobin Concent 30.9g/dl Red Cell Distribution Width 16.5% Platelet Count 87517^3/UL Mean Platelet Volume 9.8fl Neutrophils % 81.4% Lymphocytes % 11.4% Monocytes % 4.8% Eosinophils % 1.6% Basophils % 0.5% Nucleated Red Blood Cells % 0.0/100WBC Neutrophils # 5.110^3/ul Lymphocytes # 0.710^3/ul Monocytes # 0.310^3/ul Eosinophils # 0.110^3/ul Basophils # 0.010^3/ul Nucleated Red Blood Cells # 0.010^3/ul Erythrocyte Sedimentation Rate 91mm/Hr Prothrombin Time 15.9Sec Prothrombin Time Ratio 1.2 INR International Normalized Ratio 1.26 Activated Partial Thromboplast Time 37.2Sec Urine Color LT. YELLOW Urine Clarity CLEAR Urine pH 6.0 Urine Specific [place] 1.020 Urine Ketones NEGATIVE Urine Nitrite NEGATIVE Urine Bilirubin NEGATIVE Urine Urobilinogen 0.2 E.U./dL Urine Leukocyte Esterase NEGATIVE Urine Microscopic RBC 0-2/HPF Urine Microscopic WBC 0-2/HPF Urine Squamous Epithelial Cells RARE Urine Hemoglobin 1+ Urine Glucose NEGATIVE% Urine Total Protein NEGATIVE Sodium Level 136mmol/L Potassium Level 4.6mmol/L Chloride Level 106mmol/L Carbon Dioxide Level 25mmol/L Anion Gap 10 Blood Urea Nitrogen 12mg/dl Creatinine 0.56mg/dl Glucose Level 147mg/dl Lactic Acid Level 1.1mmol/L 1.2mmol/L Calcium Level 7.9mg/dl Total Bilirubin 0.0mg/dl Direct Bilirubin 0.00mg/dl Indirect Bilirubin 0.0mg/dl Aspartate Amino Transf (AST/SGOT) 10IU/L Alanine Aminotransferase (ALT/SGPT) 16IU/L Alkaline Phosphatase 75IU/L Troponin I < 0.012ng/ml Total Protein 7.3g/dl Albumin 3.0g/dl Globulin 4.30g/dl Albumin/Globulin Ratio 0.69 Current Medications Medications (Trade) Dose Ordered Sig/Katlyn Route PRN Reason Start Time Stop Time Status Last Admin Dose Admin Sodium Chloride (NS) 1,000 ml @ 1,000 mls/hr Q1H ONCE IV 12/31/16 16:00 12/31/16 16:59 DC 12/31/16 15:53 Morphine Sulfate (morphine) 2 mg ONCE ONCE IV 12/31/16 16:00 4/18/17 16:01 DC 12/31/16 15:54 Ondansetron HCl (Zofran Inj) 4 mg ONCE STAT IV 12/31/16 15:44 12/31/16 15:45 DC 12/31/16 15:54 IV Flush 10 ml 10 ml STK-MED ONCE .ROUTE 12/31/16 16:58 12/31/16 16:59 DC 12/31/16 17:17 Sodium Chloride (NS) 100 ml @ ud STK-MED ONCE .ROUTE 12/31/16 16:58 12/31/16 16:59 DC 12/31/16 17:17 Iodixanol (Visipaque Locm) 100 ml STK-MED ONCE .ROUTE 12/31/16 16:58 12/31/16 16:59 DC 12/31/16 17:18 Aspirin (Halfprin) 81 mg DAILY PO 01/01/17 09:00 Diclofenac Sodium (Voltaren) 75 mg TID PO 12/31/16 21:00 Ferrous Sulfate (Ferrous Sulfate (Ec)) 325 mg BID PO 12/31/16 21:00 Gabapentin (Neurontin) 300 mg BID PO 12/31/16 21:00 Gemfibrozil (Lopid) 600 mg BID PO 12/31/16 21:00 Acetaminophen/ Hydrocodone Bitart ([place] (5/325)) 1 tab Q6 PRN PO pain 12/31/16 18:00 Cancel Lisinopril (Zestril) 5 mg DAILY PO 01/01/17 09:00 Metformin HCl 500 mg 500 mg WITH BREAKFAST DINNE PO 12/31/16 18:00 12/31/16 18:05 Sodium Chloride (NS) 1,000 ml @ 40 mls/hr Q24H IV 12/31/16 17:44 IV Flush (NS 3 ml) 3 ml PER PROTOCOL IV 12/31/16 18:00 Ondansetron HCl (Zofran Inj) 4 mg Q6H PRN IV NAUSEA AND/OR VOMITING 12/31/16 18:00 Acetaminophen (Tylenol Tab) 650 mg Q6H PRN PO PAIN LEVEL 1-3 OR FEVER 12/31/16 18:00 Acetaminophen (Tylenol Supp) 650 mg Q6H PRN IN PAIN LEVEL 1-3 OR FEVER 12/31/16 18:00 Ibuprofen (Motrin) 600 mg Q6H PRN PO PAIN LEVEL 1-3 12/31/16 18:00 Acetaminophen/ Hydrocodone Bitart ([place] (5/325)) 1 tab Q6H PRN PO MODERATE PAIN LEVEL 4-6 12/31/16 18:00 Docusate Sodium (Colace) 100 mg Q12H PRN PO CONSTIPATION 12/31/16 18:00 Magnesium Hydroxide (Milk Of Mag) 30 ml DAILY PRN PO CONSTIPATION 12/31/16 18:00 Bisacodyl (Dulcolax) 5 mg DAILY PRN PO CONSTIPATION 12/31/16 18:00 Bisacodyl (Dulcolax Supp) 10 mg DAILY PRN IN CONSTIPATION 12/31/16 18:00 Zolpidem Tartrate (Ambien) 5 mg QHS PRN PO SLEEP 12/31/16 18:00 Pantoprazole (Protonix Iv) 40 mg DAILY@06 IV 01/01/17 06:00 Enoxaparin Sodium (Lovenox) 40 mg DAILY SC 01/01/17 09:00 Vancomycin HCl VANCOMYCIN PER PHARMACY PER PROTOCOL XX 12/31/16 18:00 UNV Levofloxacin/ Dextrose 100 ml @ 100 mls/hr ONCE ONCE IVPB 12/31/16 18:00 12/31/16 18:59 DC 12/31/16 18:06 Vancomycin HCl/ Sodium Chloride (Vancocin/NS) 250 ml @ 83.333 mls/ hr LOADING DOSE ONCE IVPB 12/31/16 18:30 12/31/16 21:29 12/31/16 19:12 Morphine Sulfate (morphine) 2 mg Q2H PRN IV PAIN LEVEL 7-10 12/31/16 18:30 12/31/16 19:11 Procedures/[place] [id number] Radiology Main Line: [phone] DIAGNOSTIC IMAGING REPORT Patient: YURI PENA : 1955 Age: 61 Sex: M MR #: [id number] DOS: 12/31/16 1454 Ordering MD: IVELISSE CANNON MD Location: E/R Room/Bed: PROCEDURE: XR Chest 1 View. CLINICAL INDICATION: Shortness breath, sepsis TECHNIQUE: AP view of the chest was obtained. COMPARISON: September 20, 2016 FINDINGS: The cardiomediastinal silhouette is within normal limits. Aortic stent graft is stable. Chronic interstitial prominence is seen in both lungs. No consolidations are identified. No pneumothorax is seen. The osseous structures are osteopenic, but appear grossly intact. IMPRESSION: Chronic mild interstitial prominence in both lungs. RPTAT: AA .Scott Jo MD, MD Date Time Electronically viewed and signed by .Scott Jo MD, on 12/31/2016 15:45 .P/ CC: IVELISSE CANNON MD [place] [address] Radiology Main Line: [phone] DIAGNOSTIC IMAGING REPORT Patient: YURI PENA : 1955 Age: 61 Sex: M MR #: [id number] DOS: 12/31/16 1454 Ordering MD: IVELISSE CANNON MD Location: E/R Room/Bed: PROCEDURE: CT Abdomen and Pelvis with contrast. CLINICAL INDICATION: Abdomen and pelvis pain. TECHNIQUE: CT scan of the abdomen and pelvis with contrast was performed. The patient was scanned following the uncomplicated intravenous administration of 100 cc of Visipaque 320. Coronal and sagittal reformatted images were obtained from the axial source images. Images were reviewed on a high- resolution PACS workstation. Total exam DLP is 128.07 mGy-cm. CTDIvol is 12.02 mGy. One or more of the following dose reduction techniques were used: Automated exposure control, adjustment of the mA and/or kV according to patient size, use of iterative reconstruction technique. COMPARISON: None. FINDINGS: The lung bases are normal. There is no pleural effusion. The liver is normal in size and attenuation. There is no focal hepatic lesion. The gallbladder and bile ducts are normal. The spleen is enlarged. There is no focal splenic lesion. Dilated veins are present in the splenic hilum region consistent with portal hypertension. Both adrenals are normal with no enlargement or mass. The pancreas is unremarkable with no mass or evidence of pancreatitis. Both kidneys demonstrate normal contrast enhancement. There is no solid renal mass or hydronephrosis. There are small benign cyst inferiorly in the right kidney superiorly in the right kidney measuring up to 2.0 cm.. The abdominal aorta is not dilated. There is calcification in the aorta consistent with atherosclerosis. There is no retroperitoneal lymphadenopathy or mass. There is no pelvic lymphadenopathy or mass. The bladder and distal ureters are normal. The periappendiceal region is unremarkable with no evidence of appendicitis. The bowel and mesentery are normal. There is no free fluid or free gas. There is flowing ossification along the anterolateral aspect of 6 contiguous lower thoracic vertebral bodies, with preservation of disk height consistent with diffuse idiopathic skeletal hyperostosis (DISH). There are degenerative changes of the hips. There is no fracture or lytic lesion. IMPRESSION: 1. Splenomegaly. 2. Dilated veins in the splenic hilum region consistent with portal hypertension. 3. Benign right renal cysts. 4. Atherosclerosis. 5. Diffuse idiopathic skeletal hyperostosis. 6. Degenerative changes of the hips. 7. Otherwise unremarkable study. RPTAT: QQ .Kenny Mohr MD, Date Time Electronically viewed and signed by .Kenny Mohr MD, MD on 12/31/2016 17:23 .R/ CC: IVELISSE CANNON MD EKG: Read by emergency physician Rate/Rhythm: Normal Sinus Rhythm 83 beats/min QRS, ST, T-waves: No ST elevation, no T inversion, low voltage Impression: Abnormal EKG MEDICAL MAKING DECISION: The patient is a 61-year-old male, presenting with acute on chronic suppurative hydradenitis. He was treated with 1 L normal saline for acute clinical dehydration, vancomycin IV, Levaquin IV, morphine 2 mg IV for pain, Zofran formula IV for nausea with good response. The differential diagnoses considered include but are not limited to osteomyelitis, abscess, cellulitis Departure Diagnosis: Primary Impression: Suppurative hidradenitis Additional Impressions: Splenomegaly Anemia Condition: Stable Comments I discussed the findings with the patient. I discussed the patient with his physician Dr. Smith who was made aware of the lab, the treatment, the patient condition. The patient is admitted to medical surgery bed at 5:40 PM IVELISSE CANNON MD Dec 31, 2016 14:32
[2016-12-31 15:19] LABS: ADD SCAN DIFF NO
[2016-12-31 15:22] LABS: ADD UMIC YES; BASOPHILS % 0.5 % (0.0-2.0); EOSINOPHILS # 0.1 10^3/ul (0.0-0.5); EOSINOPHILS % 1.6 % (0.0-7.0); HEMATOCRIT 28.5 % (42.0-52.0); HEMOGLOBIN 8.8 g/dl (14.0-18.0); LYMPHOCYTES # 0.7 10^3/ul (0.8-2.9); LYMPHOCYTES % 11.4 % (15.0-51.0); MEAN CORPUSCULAR HEMOGLOBIN 25.6 pg (29.0-33.0); MEAN CORPUSCULAR HGB CONC 30.9 g/dl (32.0-37.0); MEAN CORPUSCULAR VOLUME 82.8 fl (82.0-101.0); MEAN PLATELET VOLUME 9.8 fl (7.4-10.4); MONOCYTE # 0.3 10^3/ul (0.3-0.9); MONOCYTES % 4.8 % (0.0-11.0); NEUTROPHIL # 5.1 10^3/ul (1.6-7.5); NEUTROPHILS % 81.4 % (39.0-77.0); PLATELET COUNT 227 10^3/UL (140-415); RED BLOOD COUNT 3.44 10^6/ul (4.70-6.10); RED CELL DISTRIBUTION WIDTH 16.5 % (11.5-14.5); URINE BILIRUBIN (Dip) NEGATIVE (NEGATIVE); URINE BLOOD (Dip) 1+ (NEGATIVE); URINE COLOR LT. YELLOW (YELLOW); URINE GLUCOSE (Dip) NEGATIVE (NEGATIVE); URINE KETONES (Dip) NEGATIVE (NEGATIVE); URINE LEUKOCYTE ESTERASE (Dip) NEGATIVE (NEGATIVE); URINE NITRITE (Dip) NEGATIVE (NEGATIVE); URINE TOTAL PROTEIN (Dip) NEGATIVE (NEGATIVE); URINE UROBILINOGEN (Dip) 0.2 E.U./dL (0.1-1.0); WHITE BLOOD COUNT 6.3 10^3/ul (4.8-10.8)
[2016-12-31 15:30] LABS: INR 1.26; PROTIME 15.9 Sec (12.2-14.2); PT RATIO 1.2
[2016-12-31 15:31] LABS: PARTIAL THROMBOPLASTIN TIME 37.2 Sec (25.0-35.0)
[2016-12-31 15:36] LABS: ALANINE AMINOTRANSFERASE 16 IU/L (13-69); ALBUMIN/GLOBULIN RATIO 0.69; ALKALINE PHOSPHATASE 75 IU/L (42-121); ANION GAP 10 (8-16); ASPARTATE AMINO TRANSFERASE 10 IU/L (15-46); BLOOD UREA NITROGEN 12 mg/dl (7-20); CALCIUM 7.9 mg/dl (8.4-10.2); CARBON DIOXIDE 25 mmol/L (21-31); CHLORIDE 106 mmol/L (97-110); CREATININE 0.56 mg/dl (0.61-1.24); GLUCOSE 147 mg/dl (70-220); POTASSIUM 4.6 mmol/L (3.5-5.1); SODIUM 136 mmol/L (135-144); TOTAL PROTEIN 7.3 g/dl (6.1-8.1)
[2016-12-31] MEDS ORDERED: ONDANSETRON 4 MG INJ IV STA (15:44)
--- NOTE | 2016-12-31 15:45 | RADRPT ---
PROCEDURE: XR Chest 1 View. CLINICAL INDICATION: Shortness breath, sepsis TECHNIQUE: AP view of the chest was obtained. COMPARISON: September 20, 2016 FINDINGS: The cardiomediastinal silhouette is within normal limits. Aortic stent graft is stable. Chronic int erstitial prominence is seen in both lungs. No consolidations are identified. No pneumothorax is se en. The osseous structures are osteopenic, but appear grossly intact. IMPRESSION: Chronic mild interstitial prominence in both lungs. RPTAT: AA .Scott Jo MD, MD Date Time Electronically viewed and signed by .Scott Jo MD, MD on 12/31/2016 15:45 .P/
[2016-12-31 15:50] LABS: URINE RBCS 0-2 /HPF (0)
[2016-12-31 15:51] LABS: SQUAMOUS EPITHELIAL CELL,UR RARE
[2016-12-31 15:57] LABS: TROPONIN-I < 0.012 ng/ml (0.00-0.12)
[2016-12-31] MEDS ORDERED: morphine 2 MG INJ IV ONE (16:00)
[2016-12-31] MEDS ORDERED: SOD CHLORIDE 0.9% 1,000 ML IV ONE (16:00)
[2016-12-31] MEDS ORDERED: ASPI-664 PO (16:00)
[2016-12-31] MEDS ORDERED: DICL75TA2 PO (16:01)
[2016-12-31] MEDS ORDERED: SIMV20TA PO (16:02)
[2016-12-31] MEDS ORDERED: SOD CHLORIDE 0.9% 100 ML ONE (16:58)
[2016-12-31] MEDS ORDERED: IODIXANOL LOCM 100 ML BTL ONE (16:58)
--- NOTE | 2016-12-31 17:23 | RADRPT ---
PROCEDURE: CT Abdomen and Pelvis with contrast. CLINICAL INDICATION: Abdomen and pelvis pain. TECHNIQUE: CT scan of the abdomen and pelvis with contrast was performed. The patient was scanned following the uncomplicated intravenous administration of 100 cc of Visipaque 320. Coronal and sag ittal reformatted images were obtained from the axial source images. Images were reviewed on a high- resolution PACS workstation. Total exam DLP is 128.07 mGy-cm. CTDIvol is 12.02 mGy. One or more o f the following dose reduction techniques were used: Automated exposure control, adjustment of the m A and/or kV according to patient size, use of iterative reconstruction technique. COMPARISON: None. FINDINGS: The lung bases are normal. There is no pleural effusion. The liver is normal in size and attenuation. There is no focal hepatic lesion. The gallbladder and bile ducts are normal. The spleen is enlarged. There is no focal splenic lesion. Dilated veins are present in the splenic hilum region consistent with portal hypertension. Both adrenals are normal with no enlargement or mass. The pancreas is unremarkable with no mass or evidence of pancreatitis. Both kidneys demonstrate normal contrast enhancement. There is no solid renal mass or hydronephros is. There are small benign cyst inferiorly in the right kidney superiorly in the right kidney measu ring up to 2.0 cm.. The abdominal aorta is not dilated. There is calcification in the aorta consistent with atherosclero sis. There is no retroperitoneal lymphadenopathy or mass. There is no pelvic lymphadenopathy or mass. The bladder and distal ureters are normal. The periappendiceal region is unremarkable with no evidence of appendicitis. The bowel and mesentery are normal. There is no free fluid or free gas. There is flowing ossification along the anterolateral aspect of 6 contiguous lower thoracic vertebra l bodies, with preservation of disk height consistent with diffuse idiopathic skeletal hyperostosis (DISH). There are degenerative changes of the hips. There is no fracture or lytic lesion. IMPRESSION: 1. Splenomegaly. 2. Dilated veins in the splenic hilum region consistent with portal hypertension. 3. Benign right renal cysts. 4. Atherosclerosis. 5. Diffuse idiopathic skeletal hyperostosis. 6. Degenerative changes of the hips. 7. Otherwise unremarkable study. RPTAT: QQ .Kenny Mohr MD, Date Time Electronically viewed and signed by .Kenny Mohr MD, on 12/31/2016 17:23 .R/
--- NOTE | 2016-12-31 17:48 | QN ---
Documentation Comment hx dm decubitus htn plan wound care TAMARA SMITH MD Dec 31, 2016 17:48
[2016-12-31] MEDS ORDERED: VANCOMYCIN IV PER PHARMACY XX SCH (18:00)
[2016-12-31] MEDS ORDERED: ACETAMINOPHEN 650 MG SUPP PR PRN (18:00)
[2016-12-31] MEDS ORDERED: NACL 0.9% 3 ML SYG IV SCH (18:00)
[2016-12-31] MEDS ORDERED: IBUPROFEN 600 MG TAB PO PRN (18:00)
[2016-12-31] MEDS ORDERED: ZOLPIDEM 5 MG TAB PO PRN (18:00)
[2016-12-31] MEDS ORDERED: LEVOFLOXACIN 500MG/D5W (PMX) 100 ML IVPB ONE (18:00)
[2016-12-31] MEDS ORDERED: BISACODYL 10 MG SUPP PR PRN (18:00)
[2016-12-31] MEDS ORDERED: HYDROCODONE/APAP (5/325) TAB PO PRN ×2 (18:00)
[2016-12-31] MEDS ORDERED: MAGNESIUM HYDROXIDE 30ML CUP PO PRN (18:00)
[2016-12-31] MEDS: metFORMIN 500 MG TAB PO SCH (18:05)
[2016-12-31] MEDS ORDERED: VANCOMYCIN 1.5 GM in SOD CHLORIDE 0.9% 250 ML IVPB ONE (18:30)
[2016-12-31] MEDS: morphine 2 MG INJ IV PRN (19:11)
[2016-12-31 19:46] VITALS: TEMP 98.3
[2016-12-31 21:30] VITALS: BP 133/61; PULSE 85
[2016-12-31 22:00] VITALS: Ht 177.8 cm; Wt 74.9 kg
[2016-12-31] MEDS: SOD CHLORIDE 0.9% 1,000 ML IV SCH (22:00)
[2016-12-31] MEDS: GEMFIBROZIL 600 MG TAB PO SCH (22:02)
[2016-12-31] MEDS: GABAPENTIN 300 MG CAP PO SCH (22:02)
[2016-12-31] MEDS: FERROUS SULFATE (EC) 325 MG TAB PO SCH (22:02)
[2016-12-31 23:02] VITALS: BP 129/56; RESP 18
[2016-12-31] MEDS: DICLOFENAC (EC) 75 MG TAB PO SCH (23:31)
[2016-12-31] MEDS: DOCUSATE SODIUM 100 MG CAP PO PRN (23:32)
[2017-01-01] MEDS: morphine 2 MG INJ IV PRN ×2 (01:00→19:46)
[2017-01-01] MEDS: PANTOPRAZOLE 40 MG INJ IV SCH (05:17)
[2017-01-01] MEDS: VANCOMYCIN 1.25 GM in SOD CHLORIDE 0.9% 250 ML IVPB SCH ×2 (06:37→19:48)
[2017-01-01] MEDS ORDERED: VANCOMYCIN 1 GM in NS 250 ML IVPB SCH (07:00)
[2017-01-01] MEDS ORDERED: GLUCOSE GEL 15 GRAM TUBE BUCCAL PRN (07:30)
[2017-01-01] MEDS ORDERED: GLUCAGON 1 MG INJ IM PRN (07:30)
[2017-01-01] MEDS ORDERED: GLUCOSE GEL 15 GRAM TUBE PO PRN ×2 (07:30)
[2017-01-01] MEDS ORDERED: DEXTROSE 50% 50 ML SYRINGE IV PRN ×2 (07:30)
[2017-01-01 07:45] VITALS: BP 118/61; RESP 16
[2017-01-01] MEDS: GEMFIBROZIL 600 MG TAB PO SCH ×2 (08:54→20:09)
[2017-01-01] MEDS: LISINOPRIL 5 MG TAB PO SCH (08:54)
[2017-01-01] MEDS: FERROUS SULFATE (EC) 325 MG TAB PO SCH ×2 (08:54→20:09)
[2017-01-01] MEDS: ASPIRIN (EC) 81 MG TAB PO SCH (08:54)
[2017-01-01] MEDS: DICLOFENAC (EC) 75 MG TAB PO SCH ×3 (08:54→20:09)
[2017-01-01] MEDS: GABAPENTIN 300 MG CAP PO SCH ×2 (08:54→20:09)
[2017-01-01] MEDS: metFORMIN 500 MG TAB PO SCH ×2 (08:56→17:53)
[2017-01-01] MEDS: ENOXAPARIN 40 MG/0.4 ML SYG SC SCH (08:58)
--- NOTE | 2017-01-01 12:13 | QN ---
Documentation Comment [id number] TAMARA SMITH MD Jan 01, 2017 12:13
--- NOTE | 2017-01-01 12:44 | QN ---
Documentation Comment dr miller to see called groin wound+ lungs clear [facility] reg abd neg groin wound A/P groin wound htn dm plan antibiotic wound care TAMARA SMITH MD Jan 01, 2017 12:44
--- NOTE | 2017-01-01 13:03 | HP ---
DATE OF ADMISSION: 12/31/2016 HISTORY OF PRESENT ILLNESS: Nam Lazcano is a 61-year-old male who has a history of diabetes mellitus. The patient previously was discharged home with a diagnosis of bilateral groin and also suppurativa hidradenitis, diabetes, hypertension, dyslipidemia, history of anemia, chronic pain, decubitus, history of anemia, history of blood transfusion, electrolyte imbalance. The patient previously was seen by Dr. Sebastian Martinez and patient has been having debridement of the wound. Patient now presents with recurrent groin wound and will be seen by Dr. Sebastian Martinez. PAST MEDICAL HISTORY: Positive for bilateral groin wound, diabetes, hypertension, dyslipidemia, anemia, chronic pain, history of blood transfusion. ALLERGY HISTORY: PENICILLIN. SOCIAL HISTORY: Negative. FAMILY HISTORY: Noncontributory. The patient was admitted with above complaints and the patient is going to be monitored for further management. SOCIAL HISTORY: Negative. MEDICATION HISTORY: The patient is on: 1. Aspirin. 2. Diclofenac sodium. 3. metformin. 4. Gabapentin. 5. Lopid. 6. Hydrocodone. 7. Lisinopril. 8. Metformin. 9. Simvastatin. REVIEW OF SYSTEMS: HEENT: Unremarkable. RESPIRATORY: Unremarkable. CARDIOVASCULAR: Unremarkable. ABDOMEN: Unremarkable. EXTREMITIES: As mentioned, with groin pain. CENTRAL NERVOUS SYSTEM: Unremarkable. PHYSICAL EXAMINATION: GENERAL: The patient is awake, alert. VITAL SIGNS: Stable. HEAD: Atraumatic, normocephalic. Pupils equal, reactive to light. NECK: Supple. No JVD. LUNGS: Clear. CARDIOVASCULAR: S1, S2 are normal. ABDOMEN: Soft, nontender. Bowel sounds present. No palpable mass. EXTREMITIES: No cyanosis, clubbing, or edema. CENTRAL NERVOUS SYSTEM: The patient is awake, alert. No focal deficit. SKIN: The patient has a groin wound noted. LABORATORY DATA: Hematocrit 28.5, sodium 130, potassium 4.6. IMAGING: The patient had a CT of the abdomen and pelvis done that shows splenomegaly, dilated veins in the splenic hilum, consistent with portal hypertension, benign right renal cysts, atherosclerosis, diffuse idiopathic skeletal hyperostosis, degenerative changes of his hips. The patient had a chest x-ray, there is chronic mild interstitial prominence in both lungs. IMPRESSION: 1. Patient has suppurativa hidradenitis recurrence. 2. Groin wound. 3. Patient has diabetes mellitus. 4. The patient has anemia. 5. The patient has elevated ESR. PLAN: Admit this patient for wound care, antibiotic, possible surgery. Dr. Sebastian Martinez has been called to see this patient in consultation. Dictated By: TAMARA SMITH MD BS/NTS Conf#: [id number] DID#: [id number] MTDD
[2017-01-01] MEDS: SOD CHLORIDE 0.9% 1,000 ML IV SCH (17:44)
[2017-01-01] MEDS: LUBIPROSTONE 24 MCG CAP PO SCH (22:31)
[2017-01-01 22:58] VITALS: BP 115/98; RESP 18
--- NOTE | 2017-01-01 23:12 | PN ---
Date/Time of Note Date/Time of Note DATE: 01/01/17 TIME: 23:11 Assessment/Plan VTE Prophylaxis VTE Prophylaxis Intervention: other Lines/Catheters [facility] (from [facility] Peripheral IV Urinary Cath still in place: No Assessment/Plan Chief Complaint/Hosp Course IMPRESSION: 1. Patient has suppurativa hidradenitis recurrence. 2. Groin wound. 3. Patient has diabetes mellitus. 4. The patient has anemia. 5. The patient has elevated ESR. plan wound care Problems: Subjective 24 Hr Interval Summary Cardiovascular: no complaints Gastrointestinal: no complaints Genitourinary: no complaints Exam/Review of Systems Vital Signs Vitals Vital Signs Date Time Temp Pulse Resp B/P Pulse Ox O2 Delivery O2 Flow Rate FiO2 01/01/17 22:58 97.8 64 18 115/98 98 12/31/16 21:30 Room Air Intake and Output 12/31/16 12/31/16 01/01/17 15:00 23:00 07:00 Intake Total 1200 ml 720 ml Output Total 600 ml Balance 1200 ml 120 ml Exam Respiratory: clear to auscultation Cardiovascular: regular rate and rhythm Gastrointestinal: bowel sounds (+), soft Results Result Diagram: 12/31/16 1500 12/31/16 1500 Results 24 hrs Laboratory Tests Test 01/01/17 07:53 01/01/17 12:01 Bedside Glucose 143 91 Medications Medications Current Medications Aspirin (Halfprin) 81 mg DAILY PO Last administered on 01/01/17 08:54; Admin Dose 81 MG; Start 01/01/17 at 09:00 Diclofenac Sodium (Voltaren) 75 mg TID PO Last administered on 01/01/17 20:09 ; Admin Dose 75 MG; Start 12/31/16 at 21:00 Ferrous Sulfate (Ferrous Sulfate (Ec)) 325 mg BID PO Last administered on 20:09; Admin Dose 325 MG; Start 12/31/16 at 21:00 Gabapentin (Neurontin) 300 mg BID PO Last administered on 01/01/17 20:09; Admin Dose 300 MG; Start 12/31/16 at 21:00 Gemfibrozil (Lopid) 600 mg BID PO Last administered on 01/01/17 20:09; Admin Dose 600 MG; Start 12/31/16 at 21:00 Lisinopril 5 mg 5 mg DAILY PO Last administered on 01/01/17 08:54; Admin Dose 5 MG; Start 01/01/17 at 09:00 Sodium Chloride (NS) 1,000 ml @ 40 mls/hr Q24H IV Last administered on 22:00; Admin Dose 40 MLS/HR; Start 12/31/16 at 17:44 Ondansetron HCl (Zofran Inj) 4 mg Q6H PRN IV NAUSEA AND/OR VOMITING; Start at 18:00 Acetaminophen (Tylenol Tab) 650 mg Q6H PRN PO PAIN LEVEL 1-3 OR FEVER; Start at 18:00 Acetaminophen (Tylenol Supp) 650 mg Q6H PRN [place] PAIN LEVEL 1-3 OR FEVER; Start 12/31/16 at 18:00 Ibuprofen (Motrin) 600 mg Q6H PRN PO PAIN LEVEL 1-3; Start 12/31/16 at 18:00 Acetaminophen/ Hydrocodone Bitart ([place] (5/325)) 1 tab Q6H PRN PO MODERATE PAIN LEVEL 4-6; Start 12/31/16 at 18:00 Docusate Sodium (Colace) 100 mg Q12H PRN PO CONSTIPATION Last administered on 23:32; Admin Dose 100 MG; Start 12/31/16 at 18:00 Magnesium Hydroxide (Milk Of Mag) 30 ml DAILY PRN PO CONSTIPATION; Start at 18:00 Bisacodyl (Dulcolax) 5 mg DAILY PRN PO CONSTIPATION; Start 12/31/16 at 18:00 Bisacodyl (Dulcolax Supp) 10 mg DAILY PRN [place] CONSTIPATION; Start 12/31/16 at 18 :00 Zolpidem Tartrate (Ambien) 5 mg QHS PRN PO SLEEP; Start 12/31/16 at 18:00 Pantoprazole (Protonix Iv) 40 mg DAILY@06 IV Last administered on 01/01/17 05: 17; Admin Dose 40 MG; Start 01/01/17 at 06:00 Enoxaparin Sodium (Lovenox) 40 mg DAILY SC Last administered on 01/01/17 08:58 ; Admin Dose 40 MG; Start 01/01/17 at 09:00 Morphine Sulfate 2 mg 2 mg Q2H PRN IV PAIN LEVEL 7-10 Last administered on 01/01 19:46; Admin Dose 2 MG; Start 12/31/16 at 18:30 Vancomycin HCl/ Sodium Chloride (Vancocin/NS) 250 ml @ 83.333 mls/ hr Q12H IVPB Last administered on 01/01/17 19:48; Admin Dose 83.333 MLS/HR; Start at 07:00 Miscellaneous Information 1 ea NOTE XX ; Start 01/01/17 at 07:30 Glucose (Glutose) 15 gm Q15M PRN PO DECREASED GLUCOSE; Start 01/01/17 at 07:30 Glucose (Glutose) 22.5 gm Q15M PRN PO DECREASED GLUCOSE; Start 01/01/17 at 07: 30 Dextrose (D50w Syringe) 25 ml Q15M PRN IV DECREASED GLUCOSE; Start 01/01/17 at 07:30 Dextrose (D50w Syringe) 50 ml Q15M PRN IV DECREASED GLUCOSE; Start 01/01/17 at 07:30 Glucagon (Glucagen) 1 mg Q15M PRN IM DECREASED GLUCOSE; Start 01/01/17 at 07:30 Glucose (Glutose) 15 gm Q15M PRN BUCCAL DECREASED GLUCOSE; Start 01/01/17 at 07 :30 Miscellaneous Information (*Rx Drug Level Order Reminder*) VANCO TROUGH @ 0, 600 ON... ONCE ONCE XX ; Start 01/02/17 at 06:00; Stop 01/02/17 at 06:01 Lubiprostone (Amitiza) 24 mcg BID PO Last administered on 01/01/17 22:31; Admin Dose 24 MCG; Start 01/01/17 at 21:00 TAMARA SMITH MD Jan 01, 2017 23:12
--- NOTE | 2017-01-01 23:36 | CONS ---
Date/Time of Note Date/Time of Note DATE: 12/31/16 TIME: 23:21 Assessment/Plan Assessment/Plan Chief Complaint/Hosp Course 1. Bilateral inguinal and buttock hidradenitis suppurativa -antibiotics -fluids -will need further I&Ds -Plastic surgical consultation 2. Significant anemia, iron deficiency of unknown etiology. Stable. 3. Hypoalbuminemia is probably multifactorial; however, he will benefit from optimization of his nutrition. 4. Hypertension. Continue diet and medication control. 4. Diabetes. Continue diet and medication control. 5. Hypercholesterolemia. Continue diet and medication control. Thank you very much for consulting me in this patient's care, Late entry Problems: Consultation Date/Type/Reason Admit Date/Time Dec 31, 2016 at 18:07 Date of Consultation: Dec 31, 2016 Type of Consultation: General Surgical Reason for Consultation 1. Bilateral inguinal and buttock hidradenitis suppurativa. 2. Anemia. Referring Provider: TAMARA SMITH MD Hx of Present Illness Mr. Nam Lazcano is a 61-year-old male with known bilateral inguinal and buttock hidradenitis suppurativa who has underwent bilateral inguinal and buttock incision and drainage and debridement of multiple abscesses. He has been followed up at wound clinic and had persistent purulent discharge and subsequently referred to ER. He denies any current chest pain, nausea, vomiting , visual or neurologic changes. He has pain at the sites. Reports pain at the sites. Patient has been unable to follow up with plastics as outpatient. Denies f/c/cp/sob/cough/henry. No visual or neuro changes. No dysuria. Bowel function. No bloating. Surgical consult is obtained for further evaluation and treatment. 12 point review of systems negative unless addressed in HPI Cardiovascular: no complaints Gastrointestinal: no complaints Genitourinary: no complaints Past Medical History 1. Bilateral inguinal hidradenitis suppurativa. 2. Bilateral buttock hidradenitis suppurativa. 3. Anemia. 4. Iron deficiency. 5. Hypoalbuminemia. 6. Leukocytosis. 7. Generalized weakness. 8. Dyspnea on exertion. 9. Hypertension. 10. Hypercholesterolemia. 11. Diabetes mellitus. Past Surgical History 1. Multiple incision and drainages of abscesses in both groins and buttock at [facility] by Dr. Dalton Vilchis and of the scrotum by Dr. Grabiel Parks. 2. Aortic stent. Family History Significant Family History: no pertinent family hx Social History Smoker, however, denies alcohol or recreational drugs. Smoking Status: Current every day smoker Exam/Review of Systems Vital Signs Vitals Vital Signs Date Time Temp Pulse Resp B/P Pulse Ox O2 Delivery O2 Flow Rate FiO2 01/01/17 22:58 97.8 64 18 115/98 98 12/31/16 21:30 Room Air Intake and Output 12/31/16 12/31/16 01/01/17 15:00 23:00 07:00 Intake Total 1200 ml 720 ml Output Total 600 ml Balance 1200 ml 120 ml Exam GENERAL: No acute distress, comfortable, pleasant. HEENT: Pupils equal, reactive. No scleral icterus. Mucous membranes are moist. NECK: Supple, no JVD. PULMONARY: No respiratory distress with normal respiratory effort. No wheezing. CARDIAC: S1, S2 present. ABDOMEN: Soft, nontender. GENITOURINARY: Bilateral inguinal and partial scrotal induration and erythema and tenderness with purulent drainage. SKIN: No rashes or jaundice; however hidradenitis bilateral inguinal and buttocks with purulent drainage. RECTAL: Not done. However, buttock tissue has draining purulent fluid bilaterally. VASCULAR: Capillary refill is 2 seconds. Results Result Diagram: 12/31/16 1500 12/31/16 1500 Results 24 hrs Laboratory Tests Test 01/01/17 07:53 01/01/17 12:01 Bedside Glucose 143 91 Medications Medications Current Medications Aspirin (Halfprin) 81 mg DAILY PO Last administered on 01/01/17 08:54; Admin Dose 81 MG; Start 01/01/17 at 09:00 Diclofenac Sodium (Voltaren) 75 mg TID PO Last administered on 01/01/17 20:09 ; Admin Dose 75 MG; Start 12/31/16 at 21:00 Ferrous Sulfate (Ferrous Sulfate (Ec)) 325 mg BID PO Last administered on 20:09; Admin Dose 325 MG; Start 12/31/16 at 21:00 Gabapentin (Neurontin) 300 mg BID PO Last administered on 01/01/17 20:09; Admin Dose 300 MG; Start 12/31/16 at 21:00 Gemfibrozil (Lopid) 600 mg BID PO Last administered on 01/01/17 20:09; Admin Dose 600 MG; Start 12/31/16 at 21:00 Lisinopril 5 mg 5 mg DAILY PO Last administered on 01/01/17 08:54; Admin Dose 5 MG; Start 01/01/17 at 09:00 Sodium Chloride (NS) 1,000 ml @ 40 mls/hr Q24H IV Last administered on 22:00; Admin Dose 40 MLS/HR; Start 12/31/16 at 17:44 Ondansetron HCl (Zofran Inj) 4 mg Q6H PRN IV NAUSEA AND/OR VOMITING; Start at 18:00 Acetaminophen (Tylenol Tab) 650 mg Q6H PRN PO PAIN LEVEL 1-3 OR FEVER; Start at 18:00 Acetaminophen (Tylenol Supp) 650 mg Q6H PRN DC PAIN LEVEL 1-3 OR FEVER; Start 12/31/16 at 18:00 Ibuprofen (Motrin) 600 mg Q6H PRN PO PAIN LEVEL 1-3; Start 12/31/16 at 18:00 Acetaminophen/ Hydrocodone Bitart ([place] (5/325)) 1 tab Q6H PRN PO MODERATE PAIN LEVEL 4-6; Start 12/31/16 at 18:00 Docusate Sodium (Colace) 100 mg Q12H PRN PO CONSTIPATION Last administered on 23:32; Admin Dose 100 MG; Start 12/31/16 at 18:00 Magnesium Hydroxide (Milk Of Mag) 30 ml DAILY PRN PO CONSTIPATION; Start at 18:00 Bisacodyl (Dulcolax) 5 mg DAILY PRN PO CONSTIPATION; Start 12/31/16 at 18:00 Bisacodyl (Dulcolax Supp) 10 mg DAILY PRN [place] CONSTIPATION; Start 12/31/16 at 18 :00 Zolpidem Tartrate (Ambien) 5 mg QHS PRN PO SLEEP; Start 12/31/16 at 18:00 Pantoprazole (Protonix Iv) 40 mg DAILY@06 IV Last administered on 01/01/17 05: 17; Admin Dose 40 MG; Start 01/01/17 at 06:00 Enoxaparin Sodium (Lovenox) 40 mg DAILY SC Last administered on 01/01/17 08:58 ; Admin Dose 40 MG; Start 01/01/17 at 09:00 Morphine Sulfate 2 mg 2 mg Q2H PRN IV PAIN LEVEL 7-10 Last administered on 01/01 19:46; Admin Dose 2 MG; Start 12/31/16 at 18:30 Vancomycin HCl/ Sodium Chloride (Vancocin/NS) 250 ml @ 83.333 mls/ hr Q12H IVPB Last administered on 01/01/17 19:48; Admin Dose 83.333 MLS/HR; Start at 07:00 Miscellaneous Information 1 ea NOTE XX ; Start 01/01/17 at 07:30 Glucose (Glutose) 15 gm Q15M PRN PO DECREASED GLUCOSE; Start 01/01/17 at 07:30 Glucose (Glutose) 22.5 gm Q15M PRN PO DECREASED GLUCOSE; Start 01/01/17 at 07: 30 Dextrose (D50w Syringe) 25 ml Q15M PRN IV DECREASED GLUCOSE; Start 01/01/17 at 07:30 Dextrose (D50w Syringe) 50 ml Q15M PRN IV DECREASED GLUCOSE; Start 01/01/17 at 07:30 Glucagon (Glucagen) 1 mg Q15M PRN IM DECREASED GLUCOSE; Start 01/01/17 at 07:30 Glucose (Glutose) 15 gm Q15M PRN BUCCAL DECREASED GLUCOSE; Start 01/01/17 at 07 :30 Miscellaneous Information (*Rx Drug Level Order Reminder*) VANCO TROUGH @ 0, 600 ON... ONCE ONCE XX ; Start 01/02/17 at 06:00; Stop 01/02/17 at 06:01 Lubiprostone (Amitiza) 24 mcg BID PO Last administered on 01/01/17 22:31; Admin Dose 24 MCG; Start 01/01/17 at 21:00 STARR MISHRA MD Jan 01, 2017 23:32
--- NOTE | 2017-01-01 23:37 | PN ---
Date/Time of Note Date/Time of Note DATE: 01/01/17 TIME: 23:36 Assessment/Plan Lines/Catheters IV Catheter Type (from [facility]): Peripheral IV Rahman in Place (from [facility]): No Assessment/Plan Chief Complaint/Hosp Course 1. Bilateral inguinal and buttock hidradenitis suppurativa -antibiotics -fluids -will need further I&Ds -Plastic surgical consultation - pending 2. Significant anemia, iron deficiency of unknown etiology. Stable. 3. Hypoalbuminemia is probably multifactorial; however, he will benefit from optimization of his nutrition. 4. Hypertension. Continue diet and medication control. 4. Diabetes. Continue diet and medication control. 5. Hypercholesterolemia. Continue diet and medication control. Thank you, Problems: Subjective 24 Hr Interval Summary He has pain at the sites. Denies f/c/cp/sob/cough/henry. No visual or neuro changes. No dysuria. Bowel function. No bloating. Draining pus. Exam/Review of Systems Vital Signs Vitals Vital Signs Date Time Temp Pulse Resp B/P Pulse Ox O2 Delivery O2 Flow Rate FiO2 01/01/17 22:58 97.8 64 18 115/98 98 12/31/16 21:30 Room Air Intake and Output 12/31/16 12/31/16 01/01/17 15:00 23:00 07:00 Intake Total 1200 ml 720 ml Output Total 600 ml Balance 1200 ml 120 ml Exam Free Text/Dictation GENERAL: No acute distress, comfortable, pleasant. HEENT: Pupils equal, reactive. No scleral icterus. Mucous membranes are moist. NECK: Supple, no JVD. PULMONARY: No respiratory distress with normal respiratory effort. No wheezing. CARDIAC: S1, S2 present. ABDOMEN: Soft, nontender. GENITOURINARY: Bilateral inguinal and partial scrotal induration and erythema and tenderness with purulent drainage. SKIN: No rashes or jaundice; however hidradenitis bilateral inguinal and buttocks with purulent drainage. RECTAL: Not done. However, buttock tissue has draining purulent fluid bilaterally. VASCULAR: Capillary refill is 2 seconds. Results Result Diagram: 12/31/16 1500 12/31/16 1500 STARR MISHRA MD Jan 01, 2017 23:37
[2017-01-02] MEDS: morphine 2 MG INJ IV PRN ×3 (00:17→17:51)
[2017-01-02] MEDS: PANTOPRAZOLE 40 MG INJ IV SCH (06:13)
[2017-01-02 06:22] LABS: CREATININE 0.7 mg/dl (0.61-1.24)
[2017-01-02] MEDS: SOD CHLORIDE 0.9% 1,000 ML IV SCH ×2 (06:37→17:44)
[2017-01-02] MEDS: VANCOMYCIN 1.25 GM in SOD CHLORIDE 0.9% 250 ML IVPB SCH ×2 (06:54→18:03)
[2017-01-02] MEDS: DICLOFENAC (EC) 75 MG TAB PO SCH ×3 (08:12→21:12)
[2017-01-02] MEDS: metFORMIN 500 MG TAB PO SCH ×2 (08:12→17:53)
[2017-01-02] MEDS: LUBIPROSTONE 24 MCG CAP PO SCH ×2 (08:13→21:12)
[2017-01-02] MEDS: GABAPENTIN 300 MG CAP PO SCH ×2 (08:13→21:12)
[2017-01-02] MEDS: ASPIRIN (EC) 81 MG TAB PO SCH (08:13)
[2017-01-02] MEDS: FERROUS SULFATE (EC) 325 MG TAB PO SCH ×2 (08:13→21:12)
[2017-01-02] MEDS: GEMFIBROZIL 600 MG TAB PO SCH ×2 (08:13→21:12)
[2017-01-02] MEDS: ENOXAPARIN 40 MG/0.4 ML SYG SC SCH (08:14)
[2017-01-02] MEDS: LISINOPRIL 5 MG TAB PO SCH (08:15)
[2017-01-02] MEDS: DOCUSATE SODIUM 100 MG CAP PO PRN ×2 (08:25→21:16)
[2017-01-02 08:30] VITALS: BP 117/71; RESP 18
[2017-01-02 19:42] VITALS: BP 111/56; RESP 16
--- NOTE | 2017-01-02 19:53 | PN ---
Date/Time of Note Date/Time of Note DATE: 01/02/17 TIME: 19:52 Assessment/Plan VTE Prophylaxis VTE Prophylaxis Intervention: other Lines/Catheters IV [facility]ter Type (from [facility]): Peripheral IV Urinary Cath still in place: No Assessment/Plan Chief Complaint/Hosp Course IMPRESSION: 1. Patient has suppurativa hidradenitis recurrence. 2. Groin wound. 3. Patient has diabetes mellitus. 4. The patient has anemia. 5. The patient has elevated ESR. plan wound care antibiotic per surgery Problems: Subjective 24 Hr Interval Summary Cardiovascular: no complaints Gastrointestinal: no complaints Skin: skin lesions (+) Exam/Review of Systems Vital Signs Vitals Vital Signs Date Time Temp Pulse Resp B/P Pulse Ox O2 Delivery O2 Flow Rate FiO2 01/02/17 08:30 98.2 76 18 117/71 96 12/31/16 21:30 Room Air Intake and Output 01/01/17 01/01/17 01/02/17 15:00 23:00 07:00 Intake Total 250 ml 690 ml 640 ml Output Total 1000 ml Balance 250 ml 690 ml -360 ml Exam Respiratory: clear to auscultation Cardiovascular: regular rate and rhythm Gastrointestinal: soft Results Result Diagram: 12/31/16 1500 01/02/17 0545 Results 24 hrs Laboratory Tests Test 01/02/17 05:45 Blood Urea Nitrogen 16 Creatinine 0.70 Vancomycin Level Trough 14.9 Medications Medications Current Medications Aspirin (Halfprin) 81 mg DAILY PO Last administered on 01/02/17 08:13; Admin Dose 81 MG; Start 01/01/17 at 09:00 Diclofenac Sodium (Voltaren) 75 mg TID PO Last administered on 01/02/17 11:50 ; Admin Dose 75 MG; Start 12/31/16 at 21:00 Ferrous Sulfate (Ferrous Sulfate (Ec)) 325 mg BID PO Last administered on 08:13; Admin Dose 325 MG; Start 12/31/16 at 21:00 Gabapentin (Neurontin) 300 mg BID PO Last administered on 01/02/17 08:13; Admin Dose 300 MG; Start 12/31/16 at 21:00 Gemfibrozil (Lopid) 600 mg BID PO Last administered on 01/02/17 08:13; Admin Dose 600 MG; Start 12/31/16 at 21:00 Lisinopril 5 mg 5 mg DAILY PO Last administered on 01/02/17 08:15; Admin Dose 5 MG; Start 01/01/17 at 09:00 Sodium Chloride (NS) 1,000 ml @ 40 mls/hr Q24H IV Last administered on 06:37; Admin Dose 40 MLS/HR; Start 12/31/16 at 17:44 Ondansetron HCl (Zofran Inj) 4 mg Q6H PRN IV NAUSEA AND/OR VOMITING; Start at 18:00 Acetaminophen (Tylenol Tab) 650 mg Q6H PRN PO PAIN LEVEL 1-3 OR FEVER; Start at 18:00 Acetaminophen (Tylenol Supp) 650 mg Q6H PRN [place] PAIN LEVEL 1-3 OR FEVER; Start 12/31/16 at 18:00 Ibuprofen (Motrin) 600 mg Q6H PRN PO PAIN LEVEL 1-3; Start 12/31/16 at 18:00 Acetaminophen/ Hydrocodone Bitart ([place] (5/325)) 1 tab Q6H PRN PO MODERATE PAIN LEVEL 4-6; Start 12/31/16 at 18:00 Docusate Sodium (Colace) 100 mg Q12H PRN PO CONSTIPATION Last administered on 08:25; Admin Dose 100 MG; Start 12/31/16 at 18:00 Magnesium Hydroxide (Milk Of Mag) 30 ml DAILY PRN PO CONSTIPATION; Start at 18:00 Bisacodyl (Dulcolax) 5 mg DAILY PRN PO CONSTIPATION; Start 12/31/16 at 18:00 Bisacodyl (Dulcolax Supp) 10 mg DAILY PRN [place] CONSTIPATION; Start 12/31/16 at 18 :00 Zolpidem Tartrate (Ambien) 5 mg QHS PRN PO SLEEP; Start 12/31/16 at 18:00 Enoxaparin Sodium (Lovenox) 40 mg DAILY SC Last administered on 01/02/17 08:14 ; Admin Dose 40 MG; Start 01/01/17 at 09:00 Morphine Sulfate 2 mg 2 mg Q2H PRN IV PAIN LEVEL 7-10 Last administered on 01/02 17:51; Admin Dose 2 MG; Start 12/31/16 at 18:30 Vancomycin HCl/ Sodium Chloride (Vancocin/NS) 250 ml @ 83.333 mls/ hr Q12H IVPB Last administered on 01/02/17 18:03; Admin Dose 83.333 MLS/HR; Start at 07:00 Miscellaneous Information 1 ea NOTE XX ; Start 01/01/17 at 07:30 Glucose (Glutose) 15 gm Q15M PRN PO DECREASED GLUCOSE; Start 01/01/17 at 07:30 Glucose (Glutose) 22.5 gm Q15M PRN PO DECREASED GLUCOSE; Start 01/01/17 at 07: 30 Dextrose (D50w Syringe) 25 ml Q15M PRN IV DECREASED GLUCOSE; Start 01/01/17 at 07:30 Dextrose (D50w Syringe) 50 ml Q15M PRN IV DECREASED GLUCOSE; Start 01/01/17 at 07:30 Glucagon (Glucagen) 1 mg Q15M PRN IM DECREASED GLUCOSE; Start 01/01/17 at 07:30 Glucose (Glutose) 15 gm Q15M PRN BUCCAL DECREASED GLUCOSE; Start 01/01/17 at 07 :30 Lubiprostone (Amitiza) 24 mcg BID PO Last administered on 01/02/17 08:13; Admin Dose 24 MCG; Start 01/01/17 at 21:00 Pantoprazole (Protonix Tab) 40 mg DAILY@06 PO ; Start 01/03/17 at 06:00 TAMARA SMITH MD Jan 02, 2017 19:53
--- NOTE | 2017-01-02 21:03 | PN ---
Date/Time of Note Date/Time of Note DATE: 01/02/17 TIME: 21:03 Assessment/Plan Lines/Catheters IV Catheter Type (from [facility]): Peripheral IV Rahman in Place (from [facility]): No Assessment/Plan Chief Complaint/Hosp Course 1. Bilateral inguinal and buttock hidradenitis suppurativa -antibiotics -fluids -will need further I&Ds -Plastic surgical consultation - pending 2. Significant anemia, iron deficiency of unknown etiology. Stable. 3. Hypoalbuminemia is probably multifactorial; however, he will benefit from optimization of his nutrition. 4. Hypertension. Continue diet and medication control. 4. Diabetes. Continue diet and medication control. 5. Hypercholesterolemia. Continue diet and medication control. Thank you, Problems: Subjective 24 Hr Interval Summary He has pain at the sites. Denies f/c/cp/sob/cough/henry. No visual or neuro changes. No dysuria. Bowel function. No bloating. Draining pus. Exam/Review of Systems Vital Signs Vitals Vital Signs Date Time Temp Pulse Resp B/P Pulse Ox O2 Delivery O2 Flow Rate FiO2 01/02/17 08:30 98.2 76 18 117/71 96 12/31/16 21:30 Room Air Intake and Output 01/01/17 01/01/17 01/02/17 15:00 23:00 07:00 Intake Total 250 ml 690 ml 640 ml Output Total 1000 ml Balance 250 ml 690 ml -360 ml Exam Free Text/Dictation GENERAL: No acute distress, comfortable, pleasant. HEENT: Pupils equal, reactive. No scleral icterus. Mucous membranes are moist. NECK: Supple, no JVD. PULMONARY: No respiratory distress with normal respiratory effort. No wheezing. CARDIAC: S1, S2 present. ABDOMEN: Soft, nontender. GENITOURINARY: Bilateral inguinal and partial scrotal induration and erythema and tenderness with purulent drainage. SKIN: No rashes or jaundice; however hidradenitis bilateral inguinal and buttocks with purulent drainage. RECTAL: Not done. However, buttock tissue has draining purulent fluid bilaterally. VASCULAR: Capillary refill is 2 seconds. Results Result Diagram: 12/31/16 1500 01/02/17 0545 STARR MISHRA MD Jan 02, 2017 21:03
[2017-01-03] VITALS (13 sets, daily range): BP systolic 97–130; BP diastolic 52–71; PULSE 86–99; RESP 15–20
[2017-01-03] MEDS: DICLOFENAC (EC) 75 MG TAB PO SCH ×4 (00:36→23:13)
[2017-01-03] MEDS: PANTOPRAZOLE (EC) 40 MG TAB PO SCH (06:13)
[2017-01-03] MEDS: VANCOMYCIN 1.25 GM in SOD CHLORIDE 0.9% 250 ML IVPB SCH ×2 (06:14→19:00)
[2017-01-03] MEDS: metFORMIN 500 MG TAB PO SCH ×2 (08:07→18:05)
[2017-01-03] MEDS: LISINOPRIL 5 MG TAB PO SCH (08:34)
[2017-01-03] MEDS: ASPIRIN (EC) 81 MG TAB PO SCH (08:34)
[2017-01-03] MEDS: FERROUS SULFATE (EC) 325 MG TAB PO SCH ×2 (08:34→23:14)
[2017-01-03] MEDS: GEMFIBROZIL 600 MG TAB PO SCH ×2 (08:34→23:13)
[2017-01-03] MEDS: GABAPENTIN 300 MG CAP PO SCH ×2 (08:34→23:14)
[2017-01-03] MEDS: LUBIPROSTONE 24 MCG CAP PO SCH ×2 (08:34→23:14)
[2017-01-03] MEDS: ENOXAPARIN 40 MG/0.4 ML SYG SC SCH ×2 (08:35→08:38)
--- NOTE | 2017-01-03 10:17 | PN ---
Date/Time of Note Date/Time of Note DATE: 01/03/17 TIME: 10:17 Assessment/Plan Lines/Catheters IV Catheter Type (from [facility]): Peripheral IV Rahman in Place (from [facility]): No Assessment/Plan Chief Complaint/Hosp Course 1. Bilateral inguinal and buttock hidradenitis suppurativa -antibiotics -fluids -will need further I&Ds -Plastic surgical consultation - pending 2. Significant anemia, iron deficiency of unknown etiology. Stable. 3. Hypoalbuminemia is probably multifactorial; however, he will benefit from optimization of his nutrition. 4. Hypertension. Continue diet and medication control. 4. Diabetes. Continue diet and medication control. 5. Hypercholesterolemia. Continue diet and medication control. Thank you, Problems: Subjective 24 Hr Interval Summary He has pain at the sites. Denies f/c/cp/sob/cough/henry. No visual or neuro changes. No dysuria. Bowel function. No bloating. Draining pus. Exam/Review of Systems Vital Signs Vitals Vital Signs Date Time Temp Pulse Resp B/P Pulse Ox O2 Delivery O2 Flow Rate FiO2 01/03/17 07:25 98.6 76 20 118/64 96 12/31/16 21:30 Room Air Intake and Output 01/02/17 01/02/17 01/03/17 15:00 23:00 07:00 Intake Total 250 ml 2330 ml 1360 ml Output Total 800 ml 1500 ml Balance 250 ml 1530 ml -140 ml Exam Free Text/Dictation GENERAL: No acute distress, comfortable, pleasant. HEENT: Pupils equal, reactive. No scleral icterus. Mucous membranes are moist. NECK: Supple, no JVD. PULMONARY: No respiratory distress with normal respiratory effort. No wheezing. CARDIAC: S1, S2 present. ABDOMEN: Soft, nontender. GENITOURINARY: Bilateral inguinal and partial scrotal induration and erythema and tenderness with purulent drainage. SKIN: No rashes or jaundice; however hidradenitis bilateral inguinal and buttocks with purulent drainage. RECTAL: Not done. However, buttock tissue has draining purulent fluid bilaterally. VASCULAR: Capillary refill is 2 seconds. Results Result Diagram: 12/31/16 1500 01/02/17 0545 STARR MISHRA MD Jan 03, 2017 10:17
--- NOTE | 2017-01-03 12:17 | PN ---
Date/Time of Note Date/Time of Note DATE: 01/03/17 TIME: 12:15 Assessment/Plan VTE Prophylaxis VTE Prophylaxis Intervention: ambulation Lines/Catheters IV Catheter Type (from [facility]): Peripheral IV Urinary Cath still in place: No Assessment/Plan Chief Complaint/Hosp Course 1. groin wound 2. htn 3. dm Problems: Assessment/Plan 1. wound care 2. Ambulation 3. ID consult Dr Durham, pt is on Vancomycin, need gram negative coverage Subjective 24 Hr Interval Summary Constitutional: improved, no complaints Eyes: no complaints ENT: no complaints Respiratory: no complaints Cardiovascular: no complaints Gastrointestinal: no complaints Genitourinary: no complaints Musculoskeletal: no complaints Skin: skin lesions Neurologic: no complaints Exam/Review of Systems Vital Signs Vitals Vital Signs Date Time Temp Pulse Resp B/P Pulse Ox O2 Delivery O2 Flow Rate FiO2 01/03/17 07:25 98.6 76 20 118/64 96 12/31/16 21:30 Room Air Intake and Output 01/02/17 01/02/17 01/03/17 14:59 22:59 06:59 Intake Total 250 ml 2330 ml 1360 ml Output Total 800 ml 1500 ml Balance 250 ml 1530 ml -140 ml Exam Constitutional: alert, oriented, well developed Psych: nl mood/affect, no complaints Head: normocephalic Eyes: nl conjunctiva ENMT: nl external ears & nose Neck: supple Respiratory: clear to auscultation Cardiovascular: regular rate and rhythm Gastrointestinal: soft Musculoskeletal: nl extremities to inspection Skin: other (skin with no discharge) Results Result Diagram: 12/31/16 1500 01/02/17 0545 Results 24 hrs Laboratory Tests Test 01/03/17 07:51 Bedside Glucose 165 Medications Medications Current Medications Aspirin (Halfprin) 81 mg DAILY PO Last administered on 01/03/17 08:34; Admin Dose 81 MG; Start 01/01/17 at 09:00 Diclofenac Sodium (Voltaren) 75 mg TID PO Last administered on 01/03/17 08:34 ; Admin Dose 75 MG; Start 12/31/16 at 21:00 Ferrous Sulfate (Ferrous Sulfate (Ec)) 325 mg BID PO Last administered on 08:34; Admin Dose 325 MG; Start 12/31/16 at 21:00 Gabapentin (Neurontin) 300 mg BID PO Last administered on 01/03/17 08:34; Admin Dose 300 MG; Start 12/31/16 at 21:00 Gemfibrozil (Lopid) 600 mg BID PO Last administered on 01/03/17 08:34; Admin Dose 600 MG; Start 12/31/16 at 21:00 Lisinopril 5 mg 5 mg DAILY PO Last administered on 01/03/17 08:34; Admin Dose 5 MG; Start 01/01/17 at 09:00 Sodium Chloride (NS) 1,000 ml @ 40 mls/hr Q24H IV Last administered on 06:37; Admin Dose 40 MLS/HR; Start 12/31/16 at 17:44 Ondansetron HCl (Zofran Inj) 4 mg Q6H PRN IV NAUSEA AND/OR VOMITING; Start at 18:00 Acetaminophen (Tylenol Tab) 650 mg Q6H PRN PO PAIN LEVEL 1-3 OR FEVER; Start at 18:00 Acetaminophen (Tylenol Supp) 650 mg Q6H PRN [place] PAIN LEVEL 1-3 OR FEVER; Start 12/31/16 at 18:00 Ibuprofen (Motrin) 600 mg Q6H PRN PO PAIN LEVEL 1-3; Start 12/31/16 at 18:00 Acetaminophen/ Hydrocodone Bitart ([place] (5/325)) 1 tab Q6H PRN PO MODERATE PAIN LEVEL 4-6; Start 12/31/16 at 18:00 Docusate Sodium (Colace) 100 mg Q12H PRN PO CONSTIPATION Last administered on 21:16; Admin Dose 100 MG; Start 12/31/16 at 18:00 Magnesium Hydroxide (Milk Of Mag) 30 ml DAILY PRN PO CONSTIPATION; Start at 18:00 Bisacodyl (Dulcolax) 5 mg DAILY PRN PO CONSTIPATION; Start 12/31/16 at 18:00 Bisacodyl (Dulcolax Supp) 10 mg DAILY PRN [place] CONSTIPATION; Start 12/31/16 at 18 :00 Zolpidem Tartrate (Ambien) 5 mg QHS PRN PO SLEEP; Start 12/31/16 at 18:00 Enoxaparin Sodium (Lovenox) 40 mg DAILY SC Last administered on 01/02/17 08:14 ; Admin Dose 40 MG; Start 01/01/17 at 09:00 Morphine Sulfate 2 mg 2 mg Q2H PRN IV PAIN LEVEL 7-10 Last administered on 01/02 17:51; Admin Dose 2 MG; Start 12/31/16 at 18:30 Vancomycin HCl/ Sodium Chloride (Vancocin/NS) 250 ml @ 83.333 mls/ hr Q12H IVPB Last administered on 01/03/17 06:14; Admin Dose 83.333 MLS/HR; Start at 07:00 Miscellaneous Information 1 ea NOTE XX ; Start 01/01/17 at 07:30 Glucose (Glutose) 15 gm Q15M PRN PO DECREASED GLUCOSE; Start 01/01/17 at 07:30 Glucose (Glutose) 22.5 gm Q15M PRN PO DECREASED GLUCOSE; Start 01/01/17 at 07: 30 Dextrose (D50w Syringe) 25 ml Q15M PRN IV DECREASED GLUCOSE; Start 01/01/17 at 07:30 Dextrose (D50w Syringe) 50 ml Q15M PRN IV DECREASED GLUCOSE; Start 01/01/17 at 07:30 Glucagon (Glucagen) 1 mg Q15M PRN IM DECREASED GLUCOSE; Start 01/01/17 at 07:30 Glucose (Glutose) 15 gm Q15M PRN BUCCAL DECREASED GLUCOSE; Start 01/01/17 at 07 :30 Lubiprostone (Amitiza) 24 mcg BID PO Last administered on 01/03/17 08:34; Admin Dose 24 MCG; Start 01/01/17 at 21:00 Pantoprazole (Protonix Tab) 40 mg DAILY@06 PO Last administered on 01/03/17 06 :13; Admin Dose 40 MG; Start 01/03/17 at 06:00 JESSICA MILLS Jan 03, 2017 12:17
--- NOTE | 2017-01-03 15:13 | CONS ---
DATE OF ADMISSION: 12/31/2016 DATE OF CONSULTATION: 01/03/2017 INFECTIOUS DISEASE CONSULTATION REASON FOR CONSULTATION: Antibiotic management. HISTORY OF PRESENT ILLNESS: Nam Lazcano is a 61-year-old white male with history of diabetes mellit us. He was previously discharged home with diagnosis of bilateral groin hidradenitis suppurativa. His other problems include diabetes, hypertension, dyslipidemia, anemia, chronic pain, decubitus ulc ers, history of anemia, history of blood transfusions, and electrolyte imbalance. The patient was s een in surgical consultation by Dr. Kevin Martinez, and the patient has been having debridement of h is wound. He comes back with recurrent groin wound. ALLERGIES: THE PATIENT IS ALSO ALLERGIC TO PENICILLIN. PAST SURGICAL HISTORY: Multiple debridements. FAMILY HISTORY: Noncontributory. SOCIAL HISTORY: He does not smoke, drink, or abuse drugs. ALLERGIES: PENICILLIN. MEDICATIONS: Per chart. REVIEW OF SYSTEMS: As per HPI. PHYSICAL EXAMINATION: GENERAL: The patient is a well-developed, well-nourished male, alert, responsive, in no acute distr ess. VITAL SIGNS: Stable. He is afebrile. SKIN: Without generalized rash. HEENT: Within normal limits. NECK: Supple. LYMPH NODES: None palpable. CHEST: Decreased breath sounds at the bases. HEART: Without murmur or gallop. ABDOMEN: Soft, nontender, without organosplenomegaly or masses. EXTREMITIES: Without cyanosis, clubbing, or edema. RECTAL AND GENITAL: Deferred. NEUROLOGIC: No focal neurological abnormality. HOSPITAL COURSE: The patient has a groin wound. A CT scan of the abdomen and pelvis showed splenom egaly, dilated veins in the splenic hilum, consistent with portal hypertension. He has benign right renal cysts, atherosclerosis, diffuse idiopathic skeletal hyperostosis, and degenerative changes of his hips. A chest x-ray shows chronic mild interstitial prominence in both lungs. The patient has hidradenitis suppurativa. On admission, his white count was 6.3, H and H of 8.3 and 28.5, platelet count 227,000. BUN and creatinine was 12/0.56. His urine is negative for nitrite and leukocyte es terase. A CT scan of the abdomen and pelvis is as previously outlined. The groin wound is growing E. coli and Proteus mirabilis, and one is growing Corynebacterium. The sensitivities are currently pending, although the E. coli from previously shows sensitive to cefotaxime and so is the Proteus mi rabilis. IMPRESSION AND PLAN: The patient is currently on vancomycin. We will add the ceftriaxone to his re gimen. HE IS ALLERGIC TO PENICILLIN. I will place him on ertapenem. Wound culture is sensitive to everything. I will dictate my findings to Dr. Heriberto Gomez and Dr. Kevin Martinez. Dictated By: ANGELA CHAMBERS MD, JD/MAURIZIO Conf#: [id number] DID#: [id number]
[2017-01-03] MEDS: ERTAPENEM SODIUM 1 GM in SOD CHLORIDE 0.9% 100 ML IVPB SCH (15:34)
[2017-01-03] MEDS: SOD CHLORIDE 0.9% 1,000 ML IV SCH (17:44)
[2017-01-03] MEDS ORDERED: FENTAnyl 50 MCG/ML VIAL ONE (20:39)
[2017-01-03] MEDS ORDERED: MIDAZOLAM 1 MG/ML 2 ML INJ ONE (20:39)
--- NOTE | 2017-01-03 20:53 | OPR ---
Date/Time of Note Date/Time of Note DATE: 01/03/17 TIME: 20:49 Operative Report Procedure Date: Jan 03, 2017 Preoperative Diagnosis 1. Bilateral extensive inguinal/groin hidradenitis suppurativa with abscesses and purulent drainage 2. Bilateral extensive buttock hidradenitis suppurativa with abscesses and purulent drainage Postoperative Diagnosis 1. Bilateral extensive inguinal/groin hidradenitis suppurativa with abscesses and purulent drainage 2. Bilateral extensive buttock hidradenitis suppurativa with abscesses and purulent drainage Operation Performed 1. Incision and drainage of right inguinal/groin abscesses/hidradenitis suppurativa 2. Incision and drainage of left inguinal/groin abscesses/hidradenitis suppurativa 3. Incision and drainage of right buttock abscesses/hidradenitis supra edema 4. Incision and drainage of left buttock abscesses/hidradenitis suppurativa 5. Incision and drainage of perineal abscesses/hidradenitis suppurativa Surgeon: STARR MISHRA MD Anesthesia: general Anesthesiologist: KENJI HILARIO MD Estimated Blood Loss: 50 - 100 ml's Specimens Culture Tubes/Drains Betadine and Kerlix packing Complications: None Pt Condition Post Procedure: stable Disposition: PACU Indications Per consult note Risks benefits alternatives as per previous operation in usual and customary. Patient has not been able to find a plastic surgeon that was taking care of him and he keeps presenting to wound clinic and ER. Procedure Description Patient was brought and placed supine in the operating table and all pressure points were well-padded. After induction of anesthesia timeout was performed. He is already on antibiotics. He was prepped and draped sterilely. Multiple abscesses were identified in both bilateral groins and these were entered with scalpel and blunt instruments and drained. Wounds were irrigated and then packed with Betadine soaked Kerlix. Patient was placed on lateral decub at this point and bilateral buttock abscesses were identified in the same manner and drained and then packed with Betadine soaked Kerlix as well. Dry dressing was applied. Patient was extubated transferred to recovery in stable condition all counts were correct at the operation 2. STARR MISHRA MD Jan 03, 2017 20:53
[2017-01-03] MEDS ORDERED: PHENYLephrine (100 MCG/ML) 5ML SYG ONE (21:03)
[2017-01-03] MEDS ORDERED: LIDOCAINE 2% (SDV) 5 ML INJ ONE (21:39)
[2017-01-03] MEDS ORDERED: ETOMIDATE 20 MG INJ ONE (21:39)
[2017-01-03] MEDS ORDERED: PROPOFOL 20 ML ONE (21:39)
[2017-01-03] MEDS: morphine 2 MG INJ IV PRN (23:07)
[2017-01-03] MEDS: BISACODYL (EC) 5 MG TAB PO PRN (23:17)
[2017-01-04] MEDS: VANCOMYCIN 1.25 GM in SOD CHLORIDE 0.9% 250 ML IVPB SCH ×2 (00:28→12:14)
[2017-01-04] MEDS: ACETAMINOPHEN 325 MG TAB PO PRN ×2 (00:45→03:21)
[2017-01-04] MEDS: ONDANSETRON 4 MG INJ IV PRN (01:48)
[2017-01-04 03:04] VITALS: BP 109/52; RESP 18
[2017-01-04] MEDS ORDERED: SOD CHLORIDE 0.9% 500 ML IV STA (03:10)
[2017-01-04 03:58] LABS: ADD SCAN DIFF NO
[2017-01-04 04:03] LABS: ABNORMAL IP MESSAGE 1; BASOPHILS % 0.1 % (0.0-2.0); EOSINOPHILS % 0.3 % (0.0-7.0); HEMATOCRIT 27.1 % (42.0-52.0); HEMOGLOBIN 8.3 g/dl (14.0-18.0); LYMPHOCYTES # 0.2 10^3/ul (0.8-2.9); LYMPHOCYTES % 2.3 % (15.0-51.0); MEAN CORPUSCULAR HEMOGLOBIN 25.2 pg (29.0-33.0); MEAN CORPUSCULAR HGB CONC 30.6 g/dl (32.0-37.0); MEAN CORPUSCULAR VOLUME 82.4 fl (82.0-101.0); MEAN PLATELET VOLUME 9.9 fl (7.4-10.4); MONOCYTE # 0.2 10^3/ul (0.3-0.9); MONOCYTES % 2.5 % (0.0-11.0); NEUTROPHIL # 7.5 10^3/ul (1.6-7.5); PLATELET COUNT 191 10^3/UL (140-415); RED BLOOD COUNT 3.29 10^6/ul (4.70-6.10); RED CELL DISTRIBUTION WIDTH 17.1 % (11.5-14.5); WHITE BLOOD COUNT 7.9 10^3/ul (4.8-10.8)
[2017-01-04 04:10] LABS: NEUTROPHILS % 94.3 % (39.0-77.0)
[2017-01-04 04:14] LABS: POTASSIUM 3.7 mmol/L (3.5-5.1)
[2017-01-04 04:17] LABS: CREATININE 0.91 mg/dl (0.61-1.24)
[2017-01-04 04:18] LABS: CALCIUM 8.1 mg/dl (8.4-10.2)
[2017-01-04] MEDS: morphine 2 MG INJ IV PRN ×2 (05:32→22:51)
[2017-01-04] MEDS: PANTOPRAZOLE (EC) 40 MG TAB PO SCH (05:33)
[2017-01-04 06:37] VITALS: BP 103/51; PULSE 115; RESP 18
[2017-01-04 07:38] VITALS: BP 92/52; RESP 18
[2017-01-04] MEDS: ASPIRIN (EC) 81 MG TAB PO SCH (08:27)
[2017-01-04] MEDS: FERROUS SULFATE (EC) 325 MG TAB PO SCH ×2 (08:27→21:10)
[2017-01-04] MEDS: DICLOFENAC (EC) 75 MG TAB PO SCH ×3 (08:27→21:10)
[2017-01-04] MEDS: GEMFIBROZIL 600 MG TAB PO SCH ×2 (08:27→21:10)
[2017-01-04] MEDS: GABAPENTIN 300 MG CAP PO SCH ×2 (08:27→21:10)
[2017-01-04] MEDS: ENOXAPARIN 40 MG/0.4 ML SYG SC SCH (08:28)
[2017-01-04] MEDS: LUBIPROSTONE 24 MCG CAP PO SCH ×2 (08:30→21:10)
[2017-01-04] MEDS: metFORMIN 500 MG TAB PO SCH ×2 (08:32→18:12)
[2017-01-04] MEDS: LISINOPRIL 5 MG TAB PO SCH (09:00)
[2017-01-04] MEDS ORDERED: POTASSIUM CHLORIDE (SR) 20 MEQ TAB PO STA (13:24)
--- NOTE | 2017-01-04 13:29 | PN ---
Date/Time of Note Date/Time of Note DATE: 01/04/17 TIME: 13:27 Assessment/Plan VTE Prophylaxis VTE Prophylaxis Intervention: ambulation Lines/Catheters IV C[facility]ter Type (from [facility] Peripheral IV Urinary Cath still in place: No Assessment/Plan Chief Complaint/Hosp Course 1. groin wounda 2. htn 3. dm Problems: Assessment/Plan 1. wound care 2. Continue ab 3. Supplement potassium 40 meq Po Subjective 24 Hr Interval Summary Constitutional: improved, no complaints Eyes: no complaints ENT: no complaints Skin: other (pain in groins) Exam/Review of Systems Vital Signs Vitals Vital Signs Date Time Temp Pulse Resp B/P Pulse Ox O2 Delivery O2 Flow Rate FiO2 01/04/17 07:38 98.0 107 18 92/52 96 01/04/17 06:37 Room Air 01/03/17 22:32 2.0 Intake and Output 01/03/17 01/03/17 01/04/17 15:00 23:00 07:00 Intake Total 250 ml 1600 ml 1750 ml Output Total 650 ml 1050 ml Balance 250 ml 950 ml 700 ml Exam Constitutional: alert, oriented Head: normocephalic Eyes: nl conjunctiva Neck: supple Cardiovascular: regular rate and rhythm Skin: other (bilateral wounds both groins, drainage) Results Result Diagram: 01/04/17 0330 01/04/17 0330 Results 24 hrs Laboratory Tests Test 01/03/17 17:08 01/04/17 03:30 01/04/17 07:56 Bedside Glucose 105 140 White Blood Count 7.9 # Red Blood Count 3.29 L Hemoglobin 8.3 L Hematocrit 27.1 L Mean Corpuscular Volume 82.4 Mean Corpuscular Hemoglobin 25.2 L Mean Corpuscular Hemoglobin Concent 30.6 L Red Cell Distribution Width 17.1 H Platelet Count 191 Mean Platelet Volume 9.9 Neutrophils % 94.3 H Lymphocytes % 2.3 L Monocytes % 2.5 Eosinophils % 0.3 Basophils % 0.1 Nucleated Red Blood Cells % 0.0 Neutrophils # 7.5 Lymphocytes # 0.2 L Monocytes # 0.2 L Eosinophils # 0.0 Basophils # 0.0 Nucleated Red Blood Cells # 0.0 Sodium Level 140 Potassium Level 3.7 Chloride Level 107 Carbon Dioxide Level 24 Anion Gap 13 Blood Urea Nitrogen 19 Creatinine 0.91 Glucose Level 102 Calcium Level 8.1 L Medications Medications Current Medications Aspirin (Halfprin) 81 mg DAILY PO Last administered on 01/04/17 08:27; Admin Dose 81 MG; Start 01/01/17 at 09:00 Diclofenac Sodium (Voltaren) 75 mg TID PO Last administered on 01/04/17 12:15 ; Admin Dose 75 MG; Start 12/31/16 at 21:00 Ferrous Sulfate (Ferrous Sulfate (Ec)) 325 mg BID PO Last administered on 08:27; Admin Dose 325 MG; Start 12/31/16 at 21:00 Gabapentin (Neurontin) 300 mg BID PO Last administered on 01/04/17 08:27; Admin Dose 300 MG; Start 12/31/16 at 21:00 Gemfibrozil (Lopid) 600 mg BID PO Last administered on 01/04/17 08:27; Admin Dose 600 MG; Start 12/31/16 at 21:00 Lisinopril 5 mg 5 mg DAILY PO Last administered on 01/03/17 08:34; Admin Dose 5 MG; Start 01/01/17 at 09:00 Sodium Chloride (NS) 1,000 ml @ 40 mls/hr Q24H IV Last administered on 06:37; Admin Dose 40 MLS/HR; Start 12/31/16 at 17:44 Ondansetron HCl (Zofran Inj) 4 mg Q6H PRN IV NAUSEA AND/OR VOMITING Last administered on 01/04/17 01:48; Admin Dose 4 MG; Start 12/31/16 at 18:00 Acetaminophen (Tylenol Tab) 650 mg Q6H PRN PO PAIN LEVEL 1-3 OR FEVER Last administered on 01/04/17 03:21; Admin Dose 650 MG; Start 12/31/16 at 18:00 Acetaminophen (Tylenol Supp) 650 mg Q6H PRN [place] PAIN LEVEL 1-3 OR FEVER; Start 12/31/16 at 18:00 Ibuprofen (Motrin) 600 mg Q6H PRN PO PAIN LEVEL 1-3; Start 12/31/16 at 18:00 Acetaminophen/ Hydrocodone Bitart ([place] (5/325)) 1 tab Q6H PRN PO MODERATE PAIN LEVEL 4-6; Start 12/31/16 at 18:00 Docusate Sodium (Colace) 100 mg Q12H PRN PO CONSTIPATION Last administered on 21:16; Admin Dose 100 MG; Start 12/31/16 at 18:00 Magnesium Hydroxide (Milk Of Mag) 30 ml DAILY PRN PO CONSTIPATION; Start at 18:00 Bisacodyl (Dulcolax) 5 mg DAILY PRN PO CONSTIPATION Last administered on 23:17; Admin Dose 5 MG; Start 12/31/16 at 18:00 Bisacodyl (Dulcolax Supp) 10 mg DAILY PRN [place] CONSTIPATION; Start 12/31/16 at 18 :00 Zolpidem Tartrate (Ambien) 5 mg QHS PRN PO SLEEP; Start 12/31/16 at 18:00 Enoxaparin Sodium (Lovenox) 40 mg DAILY SC Last administered on 01/04/17 08:28 ; Admin Dose 40 MG; Start 01/01/17 at 09:00 Morphine Sulfate (morphine) 2 mg Q2H PRN IV PAIN LEVEL 7-10 Last administered on 01/04/17 05:32; Admin Dose 2 MG; Start 12/31/16 at 18:30 Miscellaneous Information 1 ea NOTE XX ; Start 01/01/17 at 07:30 Glucose (Glutose) 15 gm Q15M PRN PO DECREASED GLUCOSE; Start 01/01/17 at 07:30 Glucose (Glutose) 22.5 gm Q15M PRN PO DECREASED GLUCOSE; Start 01/01/17 at 07: 30 Dextrose (D50w Syringe) 25 ml Q15M PRN IV DECREASED GLUCOSE; Start 01/01/17 at 07:30 Dextrose (D50w Syringe) 50 ml Q15M PRN IV DECREASED GLUCOSE; Start 01/01/17 at 07:30 Glucagon (Glucagen) 1 mg Q15M PRN IM DECREASED GLUCOSE; Start 01/01/17 at 07:30 Glucose (Glutose) 15 gm Q15M PRN BUCCAL DECREASED GLUCOSE; Start 01/01/17 at 07 :30 Lubiprostone (Amitiza) 24 mcg BID PO Last administered on 01/04/17 08:30; Admin Dose 24 MCG; Start 01/01/17 at 21:00 Pantoprazole 40 mg 40 mg DAILY@06 PO Last administered on 4/22/17at 05:33; Admin Dose 40 MG; Start 01/03/17 at 06:00 Ertapenem 1 gm/ Sodium Chloride 100 ml @ 200 mls/hr Q24H IVPB Last administered on 01/03/17 15:34; Admin Dose 200 MLS/HR; Start 01/03/17 at 15:00 Vancomycin HCl/ Sodium Chloride (Vancocin/NS) 250 ml @ 83.333 mls/ hr Q12H IVPB Last administered on 01/04/17t 12:14; Admin Dose 83.333 MLS/HR; Start at 12:00 Sodium Hypochlorite (Dakin'S (09/18 Strength)) 1 applic DAILY IRR ; Start at 13:30 Miscellaneous Information (* Miscellaneous Pharmacy Order) HYPOGLYCEMIA PROTOCOL w... ONCE ONCE XX ; Start 01/04/17 at 13:30; Stop 01/04/17 at 13:31 Miscellaneous Information (* Miscellaneous Pharmacy Order) Discontinue Glyburide , Glipizide,... ONCE ONCE XX ; Start 01/04/17 at 13:30; Stop 01/04/17 at 13:31 Miscellaneous Information (* Miscellaneous Pharmacy Order) Discontinue all previ... ONCE ONCE XX ; Start 01/04/17 at 13:30; Stop 01/04/17 at 13:31 Diagnostic Test (Pha) (Accu-Chek) 1 ea 02 XX ; Start 01/05/17 at 02:00 Diagnostic Test (Pha) (Accu-Chek) 1 ea 02 XX ; Start 01/05/17 at 02:00 JESSICA MILLS Jan 04, 2017 13:29
[2017-01-04] MEDS: SODIUM HYPOCHLORITE 0.125% 473 ML BTL IRR SCH (13:30)
[2017-01-04] MEDS: ERTAPENEM SODIUM 1 GM in SOD CHLORIDE 0.9% 100 ML IVPB SCH (16:22)
[2017-01-04] MEDS: SOD CHLORIDE 0.9% 1,000 ML IV SCH (17:44)
[2017-01-04] MEDS: INSULIN ASPART [NOVOLOG] 3 ML PEN SC SCH ×2 (18:13→20:53)
[2017-01-04 20:15] VITALS: BP 95/45; RESP 19
--- NOTE | 2017-01-04 20:17 | CONS ---
Date/Time of Note Date/Time of Note DATE: 01/04/17 TIME: 20:07 Assessment/Plan Assessment/Plan Chief Complaint/Hosp Course ID PROGRESS NOTE CURRENT ABX => Vanco IV + Ertapenem 24H INTERVAL SUMMARY * POD #1 -> S/p Right Groin Wound debridement 01/03/17 * Recent wound cx 01/01/17 : WOUND CULTURE Final Organism 1 ESCHERICHIA COLI QUANTITY 2+ Organism 2 PROTEUS MIRABILIS QUANTITY 1+ E COLI P. MIRAB M.I.C. RX M.I.C. RX --------- --- --------- --- AMIKACIN <=2 S AMPICILLIN >=32 R <=2 S CEFAZOLIN R I CEFOTAXIME S S CIPROFLOXACIN >=4 R >=4 R GENTAMICIN >=16 R <=1 S LEVOFLOXACIN >=8 R 4 I TOBRAMYCIN 8 I 2 S TRIMETHOPRIM/SULFAMETHOXAZOLE >=320 R 40 S PHYSICAL EXAMINATION: GENERAL: VSS, NAD, Afebrile, 62 yo M HEENT: Unremarkable NECK: Supple CHEST: Rise symmetrical, without dyspnea on observation HEART: Pulse RRR ABDOMEN: Soft EXTREMITIES: Warm ID ASSESSMENT 61 yo M admit with: 1. SIRS w/low grade Tmax 99.8, ESR 91 due to recurrent R-groin infected wound * POD #1 -> S/p Right Groin Wound debridement 01/03/17 2. Hx of bilateral groin hidradenitis suppurativa -> Hx of prior wound debridement 3. DM Type 2, Diabetic Peripheral Neuropathy 4. HTN 5. HLD 6. Hx of Anemia requiring PRBC Tx 7. Chronic pain issues 8. Limited mobility w/ decubitus ulcers, ( -)MRSA Nares INVASIVES: PIV, ABX ALLERGY: NKDA CURRENT ABX: DAY #=> => Vanco IV + Ertapenem ID RECOMMENDATIONS 1. Continue current ABX -> monitor clinical progress over the weekend . Problems: Consultation Date/Type/Reason Admit Date/Time Dec 31, 2016 at 18:07 Initial Consult Date 12/31/16 Type of Consultation: ID Referring Provider: TAMAAR SMITH MD Exam/Review of Systems Vital Signs Vitals Vital Signs Date Time Temp Pulse Resp B/P Pulse Ox O2 Delivery O2 Flow Rate FiO2 01/04/17 07:38 98.0 107 18 92/52 96 01/04/17 06:37 Room Air 01/03/17 22:32 2.0 Intake and Output 01/03/17 01/03/17 01/04/17 15:00 23:00 07:00 Intake Total 250 ml 1600 ml 1750 ml Output Total 650 ml 1050 ml Balance 250 ml 950 ml 700 ml Results Result Diagram: 01/04/17 0330 01/04/17 0330 Results 24 hrs Laboratory Tests Test 01/04/17 03:30 01/04/17 07:56 01/04/17 16:30 White Blood Count 7.9 # Red Blood Count 3.29 L Hemoglobin 8.3 L Hematocrit 27.1 L Mean Corpuscular Volume 82.4 Mean Corpuscular Hemoglobin 25.2 L Mean Corpuscular Hemoglobin Concent 30.6 L Red Cell Distribution Width 17.1 H Platelet Count 191 Mean Platelet Volume 9.9 Neutrophils % 94.3 H Lymphocytes % 2.3 L Monocytes % 2.5 Eosinophils % 0.3 Basophils % 0.1 Nucleated Red Blood Cells % 0.0 Neutrophils # 7.5 Lymphocytes # 0.2 L Monocytes # 0.2 L Eosinophils # 0.0 Basophils # 0.0 Nucleated Red Blood Cells # 0.0 Sodium Level 140 Potassium Level 3.7 Chloride Level 107 Carbon Dioxide Level 24 Anion Gap 13 Blood Urea Nitrogen 19 Creatinine 0.91 Glucose Level 102 Calcium Level 8.1 L Bedside Glucose 140 165 Medications Medications Current Medications Aspirin (Halfprin) 81 mg DAILY PO Last administered on 01/04/17 08:27; Admin Dose 81 MG; Start 01/01/17 at 09:00 Diclofenac Sodium (Voltaren) 75 mg TID PO Last administered on 01/04/17 12:15 ; Admin Dose 75 MG; Start 12/31/16 at 21:00 Ferrous Sulfate (Ferrous Sulfate (Ec)) 325 mg BID PO Last administered on 08:27; Admin Dose 325 MG; Start 12/31/16 at 21:00 Gabapentin (Neurontin) 300 mg BID PO Last administered on 01/04/17 08:27; Admin Dose 300 MG; Start 12/31/16 at 21:00 Gemfibrozil (Lopid) 600 mg BID PO Last administered on 01/04/17 08:27; Admin Dose 600 MG; Start 12/31/16 at 21:00 Lisinopril 5 mg 5 mg DAILY PO Last administered on 01/03/17 08:34; Admin Dose 5 MG; Start 01/01/17 at 09:00 Sodium Chloride (NS) 1,000 ml @ 40 mls/hr Q24H IV Last administered on 06:37; Admin Dose 40 MLS/HR; Start 12/31/16 at 17:44 Ondansetron HCl (Zofran Inj) 4 mg Q6H PRN IV NAUSEA AND/OR VOMITING Last administered on 01/04/17 01:48; Admin Dose 4 MG; Start 12/31/16 at 18:00 Acetaminophen (Tylenol Tab) 650 mg Q6H PRN PO PAIN LEVEL 1-3 OR FEVER Last administered on 01/04/17 03:21; Admin Dose 650 MG; Start 12/31/16 at 18:00 Acetaminophen (Tylenol Supp) 650 mg Q6H PRN [place] PAIN LEVEL 1-3 OR FEVER; Start 12/31/16 at 18:00 Ibuprofen (Motrin) 600 mg Q6H PRN PO PAIN LEVEL 1-3; Start 12/31/16 at 18:00 Acetaminophen/ Hydrocodone Bitart ([place] (5/325)) 1 tab Q6H PRN PO MODERATE PAIN LEVEL 4-6; Start 12/31/16 at 18:00 Docusate Sodium (Colace) 100 mg Q12H PRN PO CONSTIPATION Last administered on 21:16; Admin Dose 100 MG; Start 12/31/16 at 18:00 Magnesium Hydroxide (Milk Of Mag) 30 ml DAILY PRN PO CONSTIPATION; Start at 18:00 Bisacodyl (Dulcolax) 5 mg DAILY PRN PO CONSTIPATION Last administered on 23:17; Admin Dose 5 MG; Start 12/31/16 at 18:00 Bisacodyl (Dulcolax Supp) 10 mg DAILY PRN [place] CONSTIPATION; Start 12/31/16 at 18 :00 Zolpidem Tartrate (Ambien) 5 mg QHS PRN PO SLEEP; Start 12/31/16 at 18:00 Enoxaparin Sodium (Lovenox) 40 mg DAILY SC Last administered on 01/04/17 08:28 ; Admin Dose 40 MG; Start 01/01/17 at 09:00 Morphine Sulfate (morphine) 2 mg Q2H PRN IV PAIN LEVEL 7-10 Last administered on 01/04/17 05:32; Admin Dose 2 MG; Start 12/31/16 at 18:30 Miscellaneous Information 1 ea NOTE XX ; Start 01/01/17 at 07:30 Glucose (Glutose) 15 gm Q15M PRN PO DECREASED GLUCOSE; Start 01/01/17 at 07:30 Glucose (Glutose) 22.5 gm Q15M PRN PO DECREASED GLUCOSE; Start 01/01/17 at 07: 30 Dextrose (D50w Syringe) 25 ml Q15M PRN IV DECREASED GLUCOSE; Start 01/01/17 at 07:30 Dextrose (D50w Syringe) 50 ml Q15M PRN IV DECREASED GLUCOSE; Start 01/01/17 at 07:30 Glucagon (Glucagen) 1 mg Q15M PRN IM DECREASED GLUCOSE; Start 01/01/17 at 07:30 Glucose (Glutose) 15 gm Q15M PRN BUCCAL DECREASED GLUCOSE; Start 01/01/17 at 07 :30 Lubiprostone (Amitiza) 24 mcg BID PO Last administered on 01/04/17 08:30; Admin Dose 24 MCG; Start 01/01/17 at 21:00 Pantoprazole 40 mg 40 mg DAILY@06 PO Last administered on 01/04/17 05:33; Admin Dose 40 MG; Start 01/03/17 at 06:00 Ertapenem 1 gm/ Sodium Chloride 100 ml @ 200 mls/hr Q24H IVPB Last administered on 01/04/17 16:22; Admin Dose 200 MLS/HR; Start 01/03/17 at 15:00 Vancomycin HCl/ Sodium Chloride (Vancocin/NS) 250 ml @ 83.333 mls/ hr Q12H IVPB Last administered on 01/04/17 12:14; Admin Dose 83.333 MLS/HR; Start at 12:00 Sodium Hypochlorite (Dakin'S (1/4 Strength)) 1 applic DAILY IRR ; Start at 13:30 Diagnostic Test (Pha) (Accu-Chek) 1 ea 02 XX ; Start 01/05/17 at 02:00 Diagnostic Test (Pha) (Accu-Chek) 1 ea 02 XX ; Start 01/05/17 at 02:00 Miscellaneous Information (*Rx Drug Level Order Reminder*) VANCOMYCIN TROUGH AT 2300 ONCE ONCE XX ; Start 01/04/17 at 23:00; Stop 01/04/17 at 23:01 MICHAEL HAIDER NP Jan 04, 2017 20:17
[2017-01-05] MEDS: VANCOMYCIN 1.25 GM in SOD CHLORIDE 0.9% 250 ML IVPB SCH ×2 (00:25→12:13)
[2017-01-05] MEDS: SOD CHLORIDE 0.9% 1,000 ML IV SCH (00:25)
[2017-01-05] MEDS: ACCU-CHEK XX SCH ×2 (02:00)
[2017-01-05] MEDS: PANTOPRAZOLE (EC) 40 MG TAB PO SCH (05:48)
[2017-01-05 06:16] LABS: ADD SCAN DIFF NO
[2017-01-05 06:41] LABS: CALCIUM 7.8 mg/dl (8.4-10.2); CREATININE 0.77 mg/dl (0.61-1.24); POTASSIUM 3.9 mmol/L (3.5-5.1)
[2017-01-05 07:20] VITALS: BP 130/67; RESP 16
[2017-01-05] MEDS: INSULIN ASPART [NOVOLOG] 3 ML PEN SC SCH ×4 (08:00→21:00)
[2017-01-05] MEDS: metFORMIN 500 MG TAB PO SCH ×2 (08:01→17:50)
[2017-01-05] MEDS: FERROUS SULFATE (EC) 325 MG TAB PO SCH ×2 (09:32→21:10)
[2017-01-05] MEDS: DOCUSATE SODIUM 100 MG CAP PO PRN (09:32)
[2017-01-05] MEDS: BISACODYL (EC) 5 MG TAB PO PRN (09:32)
[2017-01-05] MEDS: LUBIPROSTONE 24 MCG CAP PO SCH ×2 (09:32→21:10)
[2017-01-05] MEDS: SODIUM HYPOCHLORITE 0.125% 473 ML BTL IRR SCH (09:32)
[2017-01-05] MEDS: LISINOPRIL 5 MG TAB PO SCH (09:32)
[2017-01-05] MEDS: DICLOFENAC (EC) 75 MG TAB PO SCH ×3 (09:32→21:11)
[2017-01-05] MEDS: ASPIRIN (EC) 81 MG TAB PO SCH (09:32)
[2017-01-05] MEDS: GEMFIBROZIL 600 MG TAB PO SCH ×2 (09:33→21:11)
[2017-01-05] MEDS: GABAPENTIN 300 MG CAP PO SCH ×2 (09:33→21:10)
[2017-01-05] MEDS: ENOXAPARIN 40 MG/0.4 ML SYG SC SCH (09:34)
[2017-01-05 10:20] LABS: ABNORMAL IP MESSAGE 1; BASOPHILS % 0.2 % (0.0-2.0); EOSINOPHILS # 0.1 10^3/ul (0.0-0.5); EOSINOPHILS % 1.7 % (0.0-7.0); HEMATOCRIT 23.5 % (42.0-52.0); HEMOGLOBIN 7.2 g/dl (14.0-18.0); LYMPHOCYTES # 0.4 10^3/ul (0.8-2.9); LYMPHOCYTES % 7.3 % (15.0-51.0); MEAN CORPUSCULAR HEMOGLOBIN 25.6 pg (29.0-33.0); MEAN CORPUSCULAR HGB CONC 30.6 g/dl (32.0-37.0); MEAN CORPUSCULAR VOLUME 83.6 fl (82.0-101.0); MEAN PLATELET VOLUME 10.7 fl (7.4-10.4); MONOCYTE # 0.2 10^3/ul (0.3-0.9); MONOCYTES % 4.1 % (0.0-11.0); NEUTROPHIL # 4.6 10^3/ul (1.6-7.5); NEUTROPHILS % 86.3 % (39.0-77.0); PLATELET COUNT 161 10^3/UL (140-415); RED BLOOD COUNT 2.81 10^6/ul (4.70-6.10); RED CELL DISTRIBUTION WIDTH 17.2 % (11.5-14.5); WHITE BLOOD COUNT 5.4 10^3/ul (4.8-10.8)
[2017-01-05] MEDS ORDERED: SOD CHLORIDE 0.9% 250 ML IV* ONE (13:41)
--- NOTE | 2017-01-05 14:32 | CONS ---
Date/Time of Note Date/Time of Note DATE: 01/05/17 TIME: 14:23 Assessment/Plan Assessment/Plan Chief Complaint/Hosp Course ID PROGRESS NOTE CURRENT ABX => Vanco IV + Ertapenem 24H INTERVAL SUMMARY * POD #2 -> S/p Right Groin Wound debridement 01/03/17 * WBC 5.4, ESR 91, no fevers, VSS * 01/03/17 WOUND CX:(+)GNR = pending * Recent wound cx 01/01/17 : WOUND CULTURE Final Organism 1 ESCHERICHIA COLI QUANTITY 2+ Organism 2 PROTEUS MIRABILIS QUANTITY 1+ E COLI P. MIRAB M.I.C. RX M.I.C. RX --------- --- --------- --- AMIKACIN <=2 S AMPICILLIN >=32 R <=2 S CEFAZOLIN R I CEFOTAXIME S S CIPROFLOXACIN >=4 R >=4 R GENTAMICIN >=16 R <=1 S LEVOFLOXACIN >=8 R 4 I TOBRAMYCIN 8 I 2 S TRIMETHOPRIM/SULFAMETHOXAZOLE >=320 R 40 S PHYSICAL EXAMINATION: GENERAL: VSS, NAD, Afebrile, 62 yo M HEENT: Unremarkable NECK: Supple CHEST: Rise symmetrical, without dyspnea on observation HEART: Pulse RRR ABDOMEN: Soft EXTREMITIES: Warm, groin dsg c/d/i ID ASSESSMENT 61 yo M admit with: 1. SIRS w/low grade Tmax 99.8, ESR 91 due to recurrent R-groin infected wound * POD #1 -> S/p Right Groin Wound debridement 01/03/17 2. Hx of bilateral groin hidradenitis suppurativa -> Hx of prior wound debridement 3. DM Type 2, Diabetic Peripheral Neuropathy 4. HTN 5. HLD 6. Hx of Anemia requiring PRBC Tx 7. Chronic pain issues 8. Limited mobility w/ decubitus ulcers, ( -)MRSA Nares INVASIVES: PIV, ABX ALLERGY: NKDA CURRENT ABX: DAY #=> => Vanco IV + Ertapenem ID RECOMMENDATIONS 1. Continue current ABX -> monitor clinical progress over the weekend 2. f/u on 01/03/17 GNR wound cx still pending . GRAM STAIN Final POLYMORPH. LEUKOCYTE 1+ GRAM POS COCCI IN PAIRS 2+ GRAM NEGATIVE RODS 2+ WOUND CULTURE Preliminary Organism 1 GRAM NEGATIVE STEFFANIE QUANTITY 3+ Problems: Consultation Date/Type/Reason Admit Date/Time Dec 31, 2016 at 18:07 Initial Consult Date 12/31/16 Type of Consultation: ID Referring Provider: TAMARA SMITH MD Exam/Review of Systems Vital Signs Vitals Vital Signs Date Time Temp Pulse Resp B/P Pulse Ox O2 Delivery O2 Flow Rate FiO2 01/05/17 07:20 97.7 70 16 130/67 98 01/04/17 06:37 Room Air 01/03/17 22:32 2.0 Intake and Output 01/04/17 01/04/17 01/05/17 14:59 22:59 06:59 Intake Total 1060 ml 729.99 ml Output Total 450 ml 900 ml Balance 610 ml -170.01 ml Results Result Diagram: 01/05/17 0534 01/05/17 0534 Results 24 hrs Laboratory Tests Test 01/04/17 16:30 01/04/17 20:53 01/04/17 23:05 01/05/17 05:34 Bedside Glucose 165 129 Vancomycin Level Trough 18.3 White Blood Count 5.4 # Red Blood Count 2.81 L Hemoglobin 7.2 L Hematocrit 23.5 L Mean Corpuscular Volume 83.6 Mean Corpuscular Hemoglobin 25.6 L Mean Corpuscular Hemoglobin Concent 30.6 L Red Cell Distribution Width 17.2 H Platelet Count 161 Mean Platelet Volume 10.7 H Neutrophils % 86.3 H Lymphocytes % 7.3 L Monocytes % 4.1 Eosinophils % 1.7 Basophils % 0.2 Nucleated Red Blood Cells % 0.0 Neutrophils # 4.6 Lymphocytes # 0.4 L Monocytes # 0.2 L Eosinophils # 0.1 Basophils # 0.0 Nucleated Red Blood Cells # 0.0 Sodium Level 138 Potassium Level 3.9 Chloride Level 111 H Carbon Dioxide Level 25 Anion Gap 6 L Blood Urea Nitrogen 23 H Creatinine 0.77 Glucose Level 118 Calcium Level 7.8 L Test 01/05/17 07:58 01/05/17 12:14 Bedside Glucose 133 169 Medications Medications Current Medications Aspirin (Halfprin) 81 mg DAILY PO Last administered on 01/05/17 09:32; Admin Dose 81 MG; Start 01/01/17 at 09:00 Diclofenac Sodium (Voltaren) 75 mg TID PO Last administered on 01/05/17 12:13 ; Admin Dose 75 MG; Start 12/31/16 at 21:00 Ferrous Sulfate (Ferrous Sulfate (Ec)) 325 mg BID PO Last administered on 09:32; Admin Dose 325 MG; Start 12/31/16 at 21:00 Gabapentin (Neurontin) 300 mg BID PO Last administered on 01/05/17 09:33; Admin Dose 300 MG; Start 12/31/16 at 21:00 Gemfibrozil (Lopid) 600 mg BID PO Last administered on 01/05/17 09:33; Admin Dose 600 MG; Start 12/31/16 at 21:00 Lisinopril 5 mg 5 mg DAILY PO Last administered on 01/05/17 09:32; Admin Dose 5 MG; Start 01/01/17 at 09:00 Sodium Chloride (NS) 1,000 ml @ 40 mls/hr Q24H IV Last administered on 00:25; Admin Dose 40 MLS/HR; Start 12/31/16 at 17:44 Ondansetron HCl (Zofran Inj) 4 mg Q6H PRN IV NAUSEA AND/OR VOMITING Last administered on 01/04/17 01:48; Admin Dose 4 MG; Start 12/31/16 at 18:00 Acetaminophen (Tylenol Tab) 650 mg Q6H PRN PO PAIN LEVEL 1-3 OR FEVER Last administered on 01/04/17 03:21; Admin Dose 650 MG; Start 12/31/16 at 18:00 Acetaminophen (Tylenol Supp) 650 mg Q6H PRN [place] PAIN LEVEL 1-3 OR FEVER; Start 12/31/16 at 18:00 Ibuprofen (Motrin) 600 mg Q6H PRN PO PAIN LEVEL 1-3; Start 12/31/16 at 18:00 Acetaminophen/ Hydrocodone Bitart ([place] (5/325)) 1 tab Q6H PRN PO MODERATE PAIN LEVEL 4-6; Start 12/31/16 at 18:00 Docusate Sodium (Colace) 100 mg Q12H PRN PO CONSTIPATION Last administered on 09:32; Admin Dose 100 MG; Start 12/31/16 at 18:00 Magnesium Hydroxide (Milk Of Mag) 30 ml DAILY PRN PO CONSTIPATION; Start at 18:00 Bisacodyl (Dulcolax) 5 mg DAILY PRN PO CONSTIPATION Last administered on 09:32; Admin Dose 5 MG; Start 12/31/16 at 18:00 Bisacodyl (Dulcolax Supp) 10 mg DAILY PRN [place] CONSTIPATION; Start 12/31/16 at 18 :00 Zolpidem Tartrate (Ambien) 5 mg QHS PRN PO SLEEP; Start 12/31/16 at 18:00 Enoxaparin Sodium (Lovenox) 40 mg DAILY SC Last administered on 01/05/17 09:34 ; Admin Dose 40 MG; Start 01/01/17 at 09:00 Morphine Sulfate (morphine) 2 mg Q2H PRN IV PAIN LEVEL 7-10 Last administered on 01/04/17 22:51; Admin Dose 2 MG; Start 12/31/16 at 18:30 Miscellaneous Information 1 ea NOTE XX ; Start 01/01/17 at 07:30 Glucose (Glutose) 15 gm Q15M PRN PO DECREASED GLUCOSE; Start 01/01/17 at 07:30 Glucose (Glutose) 22.5 gm Q15M PRN PO DECREASED GLUCOSE; Start 01/01/17 at 07: 30 Dextrose (D50w Syringe) 25 ml Q15M PRN IV DECREASED GLUCOSE; Start 01/01/17 at 07:30 Dextrose (D50w Syringe) 50 ml Q15M PRN IV DECREASED GLUCOSE; Start 01/01/17 at 07:30 Glucagon (Glucagen) 1 mg Q15M PRN IM DECREASED GLUCOSE; Start 01/01/17 at 07:30 Glucose (Glutose) 15 gm Q15M PRN BUCCAL DECREASED GLUCOSE; Start 01/01/17 at 07 :30 Lubiprostone (Amitiza) 24 mcg BID PO Last administered on 01/05/17 09:32; Admin Dose 24 MCG; Start 01/01/17 at 21:00 Pantoprazole 40 mg 40 mg DAILY@06 PO Last administered on 01/05/17 05:48; Admin Dose 40 MG; Start 01/03/17 at 06:00 Ertapenem 1 gm/ Sodium Chloride 100 ml @ 200 mls/hr Q24H IVPB Last administered on 01/04/17 16:22; Admin Dose 200 MLS/HR; Start 01/03/17 at 15:00 Vancomycin HCl/ Sodium Chloride (Vancocin/NS) 250 ml @ 83.333 mls/ hr Q12H IVPB Last administered on 01/05/17 12:13; Admin Dose 83.333 MLS/HR; Start at 12:00; Stop 01/05/17 at 16:00 Sodium Hypochlorite (Dakin'S (1/4 Strength)) 1 applic DAILY IRR Last administered on 01/05/17 09:32; Admin Dose 1 APPLIC; Start 01/04/17 at 13:30 Diagnostic Test (Pha) (Accu-Chek) 1 ea 02 XX ; Start 01/05/17 at 02:00 Diagnostic Test (Pha) 1 ea 1 ea 02 XX ; Start 01/05/17 at 02:00 Vancomycin HCl (Vancocin) 250 ml @ 125 mls/hr Q12H IVPB ; Start 01/06/17 at 04: 00 MICHAEL HAIDER NP Jan 05, 2017 14:32
[2017-01-05] MEDS: ERTAPENEM SODIUM 1 GM in SOD CHLORIDE 0.9% 100 ML IVPB SCH (15:09)
--- NOTE | 2017-01-05 17:34 | PN ---
Date/Time of Note Date/Time of Note DATE: 01/05/17 TIME: 17:34 Assessment/Plan VTE Prophylaxis VTE Prophylaxis Intervention: other Lines/Catheters IV [facility] Type (from [facility] [place] [facility] Urinary Cath still in place: No Assessment/Plan Chief Complaint/Hosp Course IMPRESSION: 1. Patient has suppurativa hidradenitis recurrence. 2. Groin wound. s/p i and d 3. Patient has diabetes mellitus. 4. The patient has anemia. 5. The patient has elevated ESR. plan wound care antibiotic per surgery Problems: Subjective 24 Hr Interval Summary Cardiovascular: no complaints Gastrointestinal: no complaints Exam/Review of Systems Vital Signs Vitals Vital Signs Date Time Temp Pulse Resp B/P Pulse Ox O2 Delivery O2 Flow Rate FiO2 01/05/17 07:20 97.7 70 16 130/67 98 01/04/17 06:37 Room Air 01/03/17 22:32 2.0 Intake and Output 01/04/17 01/04/17 01/05/17 15:00 23:00 07:00 Intake Total 1060 ml 729.99 ml Output Total 450 ml 900 ml Balance 610 ml -170.01 ml Exam Respiratory: clear to auscultation Cardiovascular: regular rate and rhythm Gastrointestinal: soft Genitourinary - Male: nl penis Musculoskeletal: nl extremities to inspection Results Result Diagram: 01/05/17 0534 01/05/17 0534 Results 24 hrs Laboratory Tests Test 01/04/17 20:53 01/04/17 23:05 01/05/17 05:34 01/05/17 07:58 Bedside Glucose 129 133 Vancomycin Level Trough 18.3 White Blood Count 5.4 # Red Blood Count 2.81 L Hemoglobin 7.2 L Hematocrit 23.5 L Mean Corpuscular Volume 83.6 Mean Corpuscular Hemoglobin 25.6 L Mean Corpuscular Hemoglobin Concent 30.6 L Red Cell Distribution Width 17.2 H Platelet Count 161 Mean Platelet Volume 10.7 H Neutrophils % 86.3 H Lymphocytes % 7.3 L Monocytes % 4.1 Eosinophils % 1.7 Basophils % 0.2 Nucleated Red Blood Cells % 0.0 Neutrophils # 4.6 Lymphocytes # 0.4 L Monocytes # 0.2 L Eosinophils # 0.1 Basophils # 0.0 Nucleated Red Blood Cells # 0.0 Sodium Level 138 Potassium Level 3.9 Chloride Level 111 H Carbon Dioxide Level 25 Anion Gap 6 L Blood Urea Nitrogen 23 H Creatinine 0.77 Glucose Level 118 Calcium Level 7.8 L Test 01/05/17 12:14 Bedside Glucose 169 Medications Medications Current Medications Aspirin (Halfprin) 81 mg DAILY PO Last administered on 01/05/17 09:32; Admin Dose 81 MG; Start 01/01/17 at 09:00 Diclofenac Sodium (Voltaren) 75 mg TID PO Last administered on 01/05/17 12:13 ; Admin Dose 75 MG; Start 12/31/16 at 21:00 Ferrous Sulfate (Ferrous Sulfate (Ec)) 325 mg BID PO Last administered on 09:32; Admin Dose 325 MG; Start 12/31/16 at 21:00 Gabapentin (Neurontin) 300 mg BID PO Last administered on 01/05/17 09:33; Admin Dose 300 MG; Start 12/31/16 at 21:00 Gemfibrozil (Lopid) 600 mg BID PO Last administered on 01/05/17 09:33; Admin Dose 600 MG; Start 12/31/16 at 21:00 Lisinopril 5 mg 5 mg DAILY PO Last administered on 01/05/17 09:32; Admin Dose 5 MG; Start 01/01/17 at 09:00 Sodium Chloride (NS) 1,000 ml @ 40 mls/hr Q24H IV Last administered on 00:25; Admin Dose 40 MLS/HR; Start 12/31/16 at 17:44 Ondansetron HCl (Zofran Inj) 4 mg Q6H PRN IV NAUSEA AND/OR VOMITING Last administered on 01/04/17 01:48; Admin Dose 4 MG; Start 12/31/16 at 18:00 Acetaminophen (Tylenol Tab) 650 mg Q6H PRN PO PAIN LEVEL 1-3 OR FEVER Last administered on 01/04/17 03:21; Admin Dose 650 MG; Start 12/31/16 at 18:00 Acetaminophen (Tylenol Supp) 650 mg Q6H PRN [place] PAIN LEVEL 1-3 OR FEVER; Start 12/31/16 at 18:00 Ibuprofen (Motrin) 600 mg Q6H PRN PO PAIN LEVEL 1-3; Start 12/31/16 at 18:00 Acetaminophen/ Hydrocodone Bitart ([place] (5/325)) 1 tab Q6H PRN PO MODERATE PAIN LEVEL 4-6; Start 12/31/16 at 18:00 Docusate Sodium (Colace) 100 mg Q12H PRN PO CONSTIPATION Last administered on 09:32; Admin Dose 100 MG; Start 12/31/16 at 18:00 Magnesium Hydroxide (Milk Of Mag) 30 ml DAILY PRN PO CONSTIPATION; Start at 18:00 Bisacodyl (Dulcolax) 5 mg DAILY PRN PO CONSTIPATION Last administered on 09:32; Admin Dose 5 MG; Start 12/31/16 at 18:00 Bisacodyl (Dulcolax Supp) 10 mg DAILY PRN [place] CONSTIPATION; Start 12/31/16 at 18 :00 Zolpidem Tartrate (Ambien) 5 mg QHS PRN PO SLEEP; Start 12/31/16 at 18:00 Enoxaparin Sodium (Lovenox) 40 mg DAILY SC Last administered on 01/05/17 09:34 ; Admin Dose 40 MG; Start 01/01/17 at 09:00 Morphine Sulfate (morphine) 2 mg Q2H PRN IV PAIN LEVEL 7-10 Last administered on 01/04/17 22:51; Admin Dose 2 MG; Start 12/31/16 at 18:30 Miscellaneous Information 1 ea NOTE XX ; Start 01/01/17 at 07:30 Glucose (Glutose) 15 gm Q15M PRN PO DECREASED GLUCOSE; Start 01/01/17 at 07:30 Glucose (Glutose) 22.5 gm Q15M PRN PO DECREASED GLUCOSE; Start 01/01/17 at 07: 30 Dextrose (D50w Syringe) 25 ml Q15M PRN IV DECREASED GLUCOSE; Start 01/01/17 at 07:30 Dextrose (D50w Syringe) 50 ml Q15M PRN IV DECREASED GLUCOSE; Start 01/01/17 at 07:30 Glucagon (Glucagen) 1 mg Q15M PRN IM DECREASED GLUCOSE; Start 01/01/17 at 07:30 Glucose (Glutose) 15 gm Q15M PRN BUCCAL DECREASED GLUCOSE; Start 01/01/17 at 07 :30 Lubiprostone (Amitiza) 24 mcg BID PO Last administered on 01/05/17 09:32; Admin Dose 24 MCG; Start 01/01/17 at 21:00 Pantoprazole 40 mg 40 mg DAILY@06 PO Last administered on 01/05/17 05:48; Admin Dose 40 MG; Start 01/03/17 at 06:00 Ertapenem/Sodium Chloride (Invanz/NS) 100 ml @ 200 mls/hr Q24H IVPB Last administered on 01/05/17 15:09; Admin Dose 200 MLS/HR; Start 01/03/17 at 15:00 Sodium Hypochlorite (Dakin'S (09/18 Strength)) 1 applic DAILY IRR Last administered on 01/05/17 09:32; Admin Dose 1 APPLIC; Start 01/04/17 at 13:30 Diagnostic Test (Pha) (Accu-Chek) 1 ea 02 XX ; Start 01/05/17 at 02:00 Diagnostic Test (Pha) 1 ea 1 ea 02 XX ; Start 01/05/17 at 02:00 Vancomycin HCl (Vancocin) 250 ml @ 125 mls/hr Q12H IVPB ; Start 01/06/17 at 04: 00 TAMARA SMITH MD Jan 05, 2017 17:34
[2017-01-05 21:07] VITALS: BP 102/55; RESP 20
[2017-01-05] MEDS: morphine 2 MG INJ IV PRN (23:46)
[2017-01-06] MEDS: ACCU-CHEK XX SCH ×2 (02:00)
[2017-01-06] MEDS: VANCOMYCIN 1 GM in NS 250 ML IVPB SCH ×2 (03:28→17:25)
[2017-01-06] MEDS: PANTOPRAZOLE (EC) 40 MG TAB PO SCH (05:48)
[2017-01-06 05:58] LABS: ADD SCAN DIFF NO
[2017-01-06 06:11] LABS: BASOPHILS % 0.2 % (0.0-2.0); EOSINOPHILS # 0.1 10^3/ul (0.0-0.5); EOSINOPHILS % 1.8 % (0.0-7.0); HEMATOCRIT 26.5 % (42.0-52.0); HEMOGLOBIN 8.1 g/dl (14.0-18.0); LYMPHOCYTES # 0.7 10^3/ul (0.8-2.9); LYMPHOCYTES % 10.2 % (15.0-51.0); MEAN CORPUSCULAR HEMOGLOBIN 25.4 pg (29.0-33.0); MEAN CORPUSCULAR HGB CONC 30.6 g/dl (32.0-37.0); MEAN CORPUSCULAR VOLUME 83.1 fl (82.0-101.0); MEAN PLATELET VOLUME 10.3 fl (7.4-10.4); MONOCYTE # 0.3 10^3/ul (0.3-0.9); MONOCYTES % 4.9 % (0.0-11.0); NEUTROPHIL # 5.4 10^3/ul (1.6-7.5); NEUTROPHILS % 82.3 % (39.0-77.0); PLATELET COUNT 198 10^3/UL (140-415); RED BLOOD COUNT 3.19 10^6/ul (4.70-6.10); WHITE BLOOD COUNT 6.6 10^3/ul (4.8-10.8)
[2017-01-06 07:15] VITALS: BP 101/52; RESP 16
[2017-01-06] MEDS: INSULIN ASPART [NOVOLOG] 3 ML PEN SC SCH ×4 (07:49→20:24)
[2017-01-06] MEDS: LISINOPRIL 5 MG TAB PO SCH (09:00)
[2017-01-06] MEDS: morphine 2 MG INJ IV PRN ×2 (09:12→22:48)
[2017-01-06] MEDS: ASPIRIN (EC) 81 MG TAB PO SCH (09:12)
[2017-01-06] MEDS: GABAPENTIN 300 MG CAP PO SCH ×2 (09:12→20:23)
[2017-01-06] MEDS: LUBIPROSTONE 24 MCG CAP PO SCH ×2 (09:12→20:23)
[2017-01-06] MEDS: DICLOFENAC (EC) 75 MG TAB PO SCH ×3 (09:12→20:23)
[2017-01-06] MEDS: GEMFIBROZIL 600 MG TAB PO SCH ×2 (09:13→20:23)
[2017-01-06] MEDS: metFORMIN 500 MG TAB PO SCH ×2 (09:13→17:43)
[2017-01-06] MEDS: FERROUS SULFATE (EC) 325 MG TAB PO SCH ×2 (09:13→20:23)
[2017-01-06] MEDS: SODIUM HYPOCHLORITE 0.125% 473 ML BTL IRR SCH (09:16)
[2017-01-06] MEDS: ENOXAPARIN 40 MG/0.4 ML SYG SC SCH (09:16)
--- NOTE | 2017-01-06 12:18 | PN ---
Date/Time of Note Date/Time of Note DATE: 01/04/17 TIME: 12:16 Assessment/Plan Lines/Catheters IV Catheter Type (from [facility] [place]): Peripheral IV Rahman in Place (from [facility] [place]): No Assessment/Plan Chief Complaint/Hosp Course 1. Bilateral inguinal and buttock hidradenitis suppurativa s/p multiple I&Ds -antibiotics -fluids -wound care -off loading -nutrition optimization -vit c -Plastic surgical consultation - pending 2. Significant anemia, iron deficiency of unknown etiology. Stable. 3. Hypoalbuminemia is probably multifactorial; however, he will benefit from optimization of his nutrition. 4. Hypertension. Continue diet and medication control. 4. Diabetes. Continue diet and medication control. 5. Hypercholesterolemia. Continue diet and medication control. Thank you, Late entry 01/04 Problems: Subjective 24 Hr Interval Summary s/p Multiple I&Ds 01/03. Pain at the sites. Denies f/c/cp/sob/cough/henry. No visual or neuro changes. No dysuria. Bowel function. No bloating. Exam/Review of Systems Vital Signs Vitals Vital Signs Date Time Temp Pulse Resp B/P Pulse Ox O2 Delivery O2 Flow Rate FiO2 01/06/17 07:15 97.7 86 16 101/52 94 01/04/17 06:37 Room Air 01/03/17 22:32 2.0 Intake and Output 01/05/17 01/05/17 01/06/17 15:00 23:00 07:00 Intake Total 250 ml 870 ml 1300 ml Output Total 1500 ml Balance 250 ml 870 ml -200 ml Exam Free Text/Dictation GENERAL: No acute distress, comfortable, pleasant. HEENT: Pupils equal, reactive. No scleral icterus. Mucous membranes are moist. NECK: Supple, no JVD. PULMONARY: No respiratory distress with normal respiratory effort. No wheezing. CARDIAC: S1, S2 present. ABDOMEN: Soft, nontender. GENITOURINARY: Bilateral inguinal and partial scrotal wounds with packings and tenderness. SKIN: No rashes or jaundice; however hidradenitis bilateral inguinal and buttocks with purulent drainage. RECTAL: Not done. However, buttock tissue has draining purulent fluid bilaterally. VASCULAR: Capillary refill is 2 seconds. Results Result Diagram: 01/06/17 0450 01/05/17 0534 STARR MISHRA MD Jan 06, 2017 12:18
--- NOTE | 2017-01-06 12:19 | PN ---
Date/Time of Note Date/Time of Note DATE: 01/05/17 TIME: 12:18 Assessment/Plan Lines/Catheters IV Catheter Type (from [facility]): Peripheral IV Rahman in Place (from [facility]): No Assessment/Plan Chief Complaint/Hosp Course 1. Bilateral inguinal and buttock hidradenitis suppurativa s/p multiple I&Ds -antibiotics -fluids -wound care -off loading -nutrition optimization -vit c -Plastic surgical consultation - pending 2. Significant anemia, iron deficiency of unknown etiology. Stable. 3. Hypoalbuminemia is probably multifactorial; however, he will benefit from optimization of his nutrition. 4. Hypertension. Continue diet and medication control. 4. Diabetes. Continue diet and medication control. 5. Hypercholesterolemia. Continue diet and medication control. Thank you, Late entry 01/05 Problems: Subjective 24 Hr Interval Summary s/p Multiple I&Ds 01/03. Pain at the sites. Denies f/c/cp/sob/cough/henry. No visual or neuro changes. No dysuria. Bowel function. No bloating. Exam/Review of Systems Vital Signs Vitals Vital Signs Date Time Temp Pulse Resp B/P Pulse Ox O2 Delivery O2 Flow Rate FiO2 01/06/17 07:15 97.7 86 16 101/52 94 01/04/17 06:37 Room Air 01/03/17 22:32 2.0 Intake and Output 01/05/17 01/05/17 01/06/17 15:00 23:00 07:00 Intake Total 250 ml 870 ml 1300 ml Output Total 1500 ml Balance 250 ml 870 ml -200 ml Exam Free Text/Dictation GENERAL: No acute distress, comfortable, pleasant. HEENT: Pupils equal, reactive. No scleral icterus. Mucous membranes are moist. NECK: Supple, no JVD. PULMONARY: No respiratory distress with normal respiratory effort. No wheezing. CARDIAC: S1, S2 present. ABDOMEN: Soft, nontender. GENITOURINARY: Bilateral inguinal and partial scrotal wounds with packings and tenderness. SKIN: No rashes or jaundice; however hidradenitis bilateral inguinal and buttocks with purulent drainage. RECTAL: Not done. However, buttock tissue has draining purulent fluid bilaterally. VASCULAR: Capillary refill is 2 seconds. Results Result Diagram: 01/06/17 0450 01/05/17 0534 STARR MISHRA MD Jan 06, 2017 12:19
--- NOTE | 2017-01-06 12:21 | PN ---
Date/Time of Note Date/Time of Note DATE: 01/06/17 TIME: 12:20 Assessment/Plan Lines/Catheters IV Catheter Type (from [facility]): Peripheral IV Rahman in Place (from [facility]): No Assessment/Plan Chief Complaint/Hosp Course 1. Bilateral inguinal and buttock hidradenitis suppurativa s/p multiple I&Ds -antibiotics -fluids -wound care -off loading -nutrition optimization -vit c -Plastic surgical consultation - pending 2. Significant anemia, iron deficiency of unknown etiology. Stable. 3. Hypoalbuminemia is probably multifactorial; however, he will benefit from optimization of his nutrition. 4. Hypertension. Continue diet and medication control. 4. Diabetes. Continue diet and medication control. 5. Hypercholesterolemia. Continue diet and medication control. Thank you, Problems: Subjective 24 Hr Interval Summary s/p Multiple I&Ds 01/03. Pain at the sites improving. Denies f/c/cp/sob/cough/ henry. No visual or neuro changes. No dysuria. Bowel function. No bloating. Exam/Review of Systems Vital Signs Vitals Vital Signs Date Time Temp Pulse Resp B/P Pulse Ox O2 Delivery O2 Flow Rate FiO2 01/06/17 07:15 97.7 86 16 101/52 94 01/04/17 06:37 Room Air 01/03/17 22:32 2.0 Intake and Output 01/05/17 01/05/17 01/06/17 15:00 23:00 07:00 Intake Total 250 ml 870 ml 1300 ml Output Total 1500 ml Balance 250 ml 870 ml -200 ml Exam Free Text/Dictation GENERAL: No acute distress, comfortable, pleasant. HEENT: Pupils equal, reactive. No scleral icterus. Mucous membranes are moist. NECK: Supple, no JVD. PULMONARY: No respiratory distress with normal respiratory effort. No wheezing. CARDIAC: S1, S2 present. ABDOMEN: Soft, nontender. GENITOURINARY: Bilateral inguinal and partial scrotal wounds with packings and tenderness. SKIN: No rashes or jaundice; however hidradenitis bilateral inguinal and buttock wounds RECTAL: Not done. VASCULAR: Capillary refill is 2 seconds. Results Result Diagram: 01/06/17 0450 01/05/17 0534 STARR MISHRA MD Jan 06, 2017 12:21
[2017-01-06] MEDS ORDERED: NA PHOSPHATE/BIPHOS 133 ML ENEMA PR ONE (13:30)
[2017-01-06] MEDS: ERTAPENEM SODIUM 1 GM in SOD CHLORIDE 0.9% 100 ML IVPB SCH (15:56)
--- NOTE | 2017-01-06 16:35 | PN ---
Date/Time of Note Date/Time of Note DATE: 01/06/17 TIME: 16:34 Assessment/Plan VTE Prophylaxis VTE Prophylaxis Intervention: other Lines/Catheters IV Catheter Type (from [facility]): Peripheral IV Urinary Cath still in place: No Assessment/Plan Chief Complaint/Hosp Course IMPRESSION: 1. Patient has suppurativa hidradenitis recurrence.on antibiotic 2. Groin wound. s/p i and d 3. Patient has diabetes mellitus. 4. The patient has anemia. 5. The patient has elevated ESR. plan wound care antibiotic per surgery snf soon Problems: Subjective 24 Hr Interval Summary Gastrointestinal: no complaints Genitourinary: no complaints Musculoskeletal: no complaints Skin: no complaints Exam/Review of Systems Vital Signs Vitals Vital Signs Date Time Temp Pulse Resp B/P Pulse Ox O2 Delivery O2 Flow Rate FiO2 01/06/17 07:15 97.7 86 16 101/52 94 01/04/17 06:37 Room Air 01/03/17 22:32 2.0 Intake and Output 01/05/17 01/05/17 01/06/17 15:00 23:00 07:00 Intake Total 250 ml 870 ml 1300 ml Output Total 1500 ml Balance 250 ml 870 ml -200 ml Exam Neck: supple Respiratory: clear to auscultation Cardiovascular: regular rate and rhythm Gastrointestinal: soft Musculoskeletal: nl extremities to inspection Extremities: normal pulses Results Result Diagram: 01/06/17 0450 01/05/17 0534 Results 24 hrs Laboratory Tests Test 01/05/17 17:51 01/05/17 21:12 01/06/17 04:50 01/06/17 07:47 Bedside Glucose 139 130 96 White Blood Count 6.6 # Red Blood Count 3.19 L Hemoglobin 8.1 L Hematocrit 26.5 L Mean Corpuscular Volume 83.1 Mean Corpuscular Hemoglobin 25.4 L Mean Corpuscular Hemoglobin Concent 30.6 L Red Cell Distribution Width 17.0 H Platelet Count 198 # Mean Platelet Volume 10.3 Neutrophils % 82.3 H Lymphocytes % 10.2 L Monocytes % 4.9 Eosinophils % 1.8 Basophils % 0.2 Nucleated Red Blood Cells % 0.0 Neutrophils # 5.4 Lymphocytes # 0.7 L Monocytes # 0.3 Eosinophils # 0.1 Basophils # 0.0 Nucleated Red Blood Cells # 0.0 Test 01/06/17 11:54 Bedside Glucose 166 Medications Medications Current Medications Aspirin (Halfprin) 81 mg DAILY PO Last administered on 01/06/17 09:12; Admin Dose 81 MG; Start 01/01/17 at 09:00 Diclofenac Sodium (Voltaren) 75 mg TID PO Last administered on 01/06/17 12:20 ; Admin Dose 75 MG; Start 12/31/16 at 21:00 Ferrous Sulfate (Ferrous Sulfate (Ec)) 325 mg BID PO Last administered on 09:13; Admin Dose 325 MG; Start 12/31/16 at 21:00 Gabapentin (Neurontin) 300 mg BID PO Last administered on 01/06/17 09:12; Admin Dose 300 MG; Start 12/31/16 at 21:00 Gemfibrozil (Lopid) 600 mg BID PO Last administered on 01/06/17 09:13; Admin Dose 600 MG; Start 12/31/16 at 21:00 Lisinopril 5 mg 5 mg DAILY PO Last administered on 01/05/17 09:32; Admin Dose 5 MG; Start 01/01/17 at 09:00 Sodium Chloride (NS) 1,000 ml @ 40 mls/hr Q24H IV Last administered on 00:25; Admin Dose 40 MLS/HR; Start 12/31/16 at 17:44 Ondansetron HCl (Zofran Inj) 4 mg Q6H PRN IV NAUSEA AND/OR VOMITING Last administered on 01/04/17 01:48; Admin Dose 4 MG; Start 12/31/16 at 18:00 Acetaminophen (Tylenol Tab) 650 mg Q6H PRN PO PAIN LEVEL 1-3 OR FEVER Last administered on 01/04/17 03:21; Admin Dose 650 MG; Start 12/31/16 at 18:00 Acetaminophen (Tylenol Supp) 650 mg Q6H PRN [place] PAIN LEVEL 1-3 OR FEVER; Start 12/31/16 at 18:00 Ibuprofen (Motrin) 600 mg Q6H PRN PO PAIN LEVEL 1-3; Start 12/31/16 at 18:00 Acetaminophen/ Hydrocodone Bitart ([place] (5/325)) 1 tab Q6H PRN PO MODERATE PAIN LEVEL 4-6; Start 12/31/16 at 18:00 Docusate Sodium (Colace) 100 mg Q12H PRN PO CONSTIPATION Last administered on 09:32; Admin Dose 100 MG; Start 12/31/16 at 18:00 Magnesium Hydroxide (Milk Of Mag) 30 ml DAILY PRN PO CONSTIPATION; Start at 18:00 Bisacodyl (Dulcolax) 5 mg DAILY PRN PO CONSTIPATION Last administered on 09:32; Admin Dose 5 MG; Start 12/31/16 at 18:00 Bisacodyl (Dulcolax Supp) 10 mg DAILY PRN [place] CONSTIPATION Last administered on 01/06/17 09:28; Admin Dose 10 MG; Start 12/31/16 at 18:00 Zolpidem Tartrate (Ambien) 5 mg QHS PRN PO SLEEP; Start 12/31/16 at 18:00 Enoxaparin Sodium (Lovenox) 40 mg DAILY SC Last administered on 01/06/17 09:16 ; Admin Dose 40 MG; Start 01/01/17 at 09:00 Morphine Sulfate (morphine) 2 mg Q2H PRN IV PAIN LEVEL 7-10 Last administered on 01/06/17 09:12; Admin Dose 2 MG; Start 12/31/16 at 18:30 Miscellaneous Information 1 ea NOTE XX ; Start 01/01/17 at 07:30 Glucose (Glutose) 15 gm Q15M PRN PO DECREASED GLUCOSE; Start 01/01/17 at 07:30 Glucose (Glutose) 22.5 gm Q15M PRN PO DECREASED GLUCOSE; Start 01/01/17 at 07: 30 Dextrose (D50w Syringe) 25 ml Q15M PRN IV DECREASED GLUCOSE; Start 01/01/17 at 07:30 Dextrose (D50w Syringe) 50 ml Q15M PRN IV DECREASED GLUCOSE; Start 01/01/17 at 07:30 Glucagon (Glucagen) 1 mg Q15M PRN IM DECREASED GLUCOSE; Start 01/01/17 at 07:30 Glucose (Glutose) 15 gm Q15M PRN BUCCAL DECREASED GLUCOSE; Start 01/01/17 at 07 :30 Lubiprostone (Amitiza) 24 mcg BID PO Last administered on 01/06/17 09:12; Admin Dose 24 MCG; Start 01/01/17 at 21:00 Pantoprazole 40 mg 40 mg DAILY@06 PO Last administered on 01/06/17 05:48; Admin Dose 40 MG; Start 01/03/17 at 06:00 Ertapenem/Sodium Chloride (Invanz/NS) 100 ml @ 200 mls/hr Q24H IVPB Last administered on 01/06/17 15:56; Admin Dose 200 MLS/HR; Start 01/03/17 at 15:00 Sodium Hypochlorite (Dakin'S (09/18 Strength)) 1 applic DAILY IRR Last administered on 01/06/17 09:16; Admin Dose 1 APPLIC; Start 01/04/17 at 13:30 Diagnostic Test (Pha) (Accu-Chek) 1 ea 02 XX ; Start 01/05/17 at 02:00 Diagnostic Test (Pha) 1 ea 1 ea 02 XX ; Start 01/05/17 at 02:00 Vancomycin HCl (Vancocin) 250 ml @ 125 mls/hr Q12H IVPB Last administered on 03:28; Admin Dose 125 MLS/HR; Start 01/06/17 at 04:00 Miscellaneous Information (*Rx Drug Level Order Reminder*) VANCOMYCIN TROUGH AT 1500 ONCE ONCE XX ; Start 01/07/17 at 15:00; Stop 01/07/17 at 15:01 TAMARA SMITH MD Jan 06, 2017 16:35
[2017-01-06] MEDS: SOD CHLORIDE 0.9% 1,000 ML IV SCH ×2 (17:41→23:37)
--- NOTE | 2017-01-06 19:46 | CONS ---
Date/Time of Note Date/Time of Note DATE: 01/06/17 TIME: 19:42 Assessment/Plan Assessment/Plan Chief Complaint/Hosp Course ID PROGRESS NOTE CURRENT ABX => Vanco IV + Ertapenem 24H INTERVAL SUMMARY * POD #3 -> S/p Right Groin Wound debridement 01/03/17 * Plastic surgery consulted for Bilateral inguinal and buttock hidradenitis suppurativa s/p multiple I&Ds 01/03 * WBC 5.4, ESR 91, no fevers, VSS * 01/03/17 WOUND CX:OUND CULTURE Preliminary Organism 1 PROTEUS MIRABILIS QUANTITY 3+ Organism 2 ENTEROCOCCUS SPECIES QUANTITY 1+ P. MIRAB M.I.C. RX --------- --- AMIKACIN <=2 S AMPICILLIN <=2 S CEFOTAXIME S CIPROFLOXACIN >=4 R GENTAMICIN 8 I LEVOFLOXACIN >=8 R TOBRAMYCIN 8 I TRIMETHOPRIM/SULFAMETHOXAZOLE >=320 R * * Recent wound cx 01/01/17 : WOUND CULTURE Final Organism 1 ESCHERICHIA COLI QUANTITY 2+ Organism 2 PROTEUS MIRABILIS QUANTITY 1+ E COLI P. MIRAB M.I.C. RX M.I.C. RX --------- --- --------- --- AMIKACIN <=2 S AMPICILLIN >=32 R <=2 S CEFAZOLIN R I CEFOTAXIME S S CIPROFLOXACIN >=4 R >=4 R GENTAMICIN >=16 R <=1 S LEVOFLOXACIN >=8 R 4 I TOBRAMYCIN 8 I 2 S TRIMETHOPRIM/SULFAMETHOXAZOLE >=320 R 40 S PHYSICAL EXAMINATION: GENERAL: VSS, NAD, Afebrile, 62 yo M HEENT: Unremarkable NECK: Supple CHEST: Rise symmetrical, without dyspnea on observation HEART: Pulse RRR ABDOMEN: Soft EXTREMITIES: Warm, groin dsg c/d/i ID ASSESSMENT 61 yo M admit with: 1. SIRS w/low grade Tmax 99.8, ESR 91 due to recurrent R-groin infected wound * POD #1 -> S/p Right Groin Wound debridement 01/03/17 2. Hx of bilateral groin hidradenitis suppurativa -> Hx of prior wound debridement 3. DM Type 2, Diabetic Peripheral Neuropathy 4. HTN 5. HLD 6. Hx of Anemia requiring PRBC Tx 7. Chronic pain issues 8. Limited mobility w/ decubitus ulcers, ( -)MRSA Nares INVASIVES: PIV, ABX ALLERGY: NKDA CURRENT ABX: DAY #=> => Vanco IV + Ertapenem ID RECOMMENDATIONS 1. Continue current ABX -> Pending plastic surgeon consult . Problems: Consultation Date/Type/Reason Admit Date/Time Dec 31, 2016 at 18:07 Initial Consult Date 12/31/16 Type of Consultation: ID Referring Provider: TAMARA SMITH MD Exam/Review of Systems Vital Signs Vitals Vital Signs Date Time Temp Pulse Resp B/P Pulse Ox O2 Delivery O2 Flow Rate FiO2 01/06/17 07:15 97.7 86 16 101/52 94 01/04/17 06:37 Room Air 01/03/17 22:32 2.0 Intake and Output 01/05/17 01/05/17 01/06/17 15:00 23:00 07:00 Intake Total 250 ml 870 ml 1300 ml Output Total 1500 ml Balance 250 ml 870 ml -200 ml Results Result Diagram: 01/06/17 0450 01/05/17 0534 Results 24 hrs Laboratory Tests Test 01/05/17 21:12 01/06/17 04:50 01/06/17 07:47 01/06/17 11:54 Bedside Glucose 130 96 166 White Blood Count 6.6 # Red Blood Count 3.19 L Hemoglobin 8.1 L Hematocrit 26.5 L Mean Corpuscular Volume 83.1 Mean Corpuscular Hemoglobin 25.4 L Mean Corpuscular Hemoglobin Concent 30.6 L Red Cell Distribution Width 17.0 H Platelet Count 198 # Mean Platelet Volume 10.3 Neutrophils % 82.3 H Lymphocytes % 10.2 L Monocytes % 4.9 Eosinophils % 1.8 Basophils % 0.2 Nucleated Red Blood Cells % 0.0 Neutrophils # 5.4 Lymphocytes # 0.7 L Monocytes # 0.3 Eosinophils # 0.1 Basophils # 0.0 Nucleated Red Blood Cells # 0.0 Test 01/06/17 17:38 Bedside Glucose 94 Medications Medications Current Medications Aspirin (Halfprin) 81 mg DAILY PO Last administered on 01/06/17 09:12; Admin Dose 81 MG; Start 01/01/17 at 09:00 Diclofenac Sodium (Voltaren) 75 mg TID PO Last administered on 01/06/17 12:20 ; Admin Dose 75 MG; Start 12/31/16 at 21:00 Ferrous Sulfate (Ferrous Sulfate (Ec)) 325 mg BID PO Last administered on 09:13; Admin Dose 325 MG; Start 12/31/16 at 21:00 Gabapentin (Neurontin) 300 mg BID PO Last administered on 01/06/17 09:12; Admin Dose 300 MG; Start 12/31/16 at 21:00 Gemfibrozil (Lopid) 600 mg BID PO Last administered on 01/06/17 09:13; Admin Dose 600 MG; Start 12/31/16 at 21:00 Lisinopril 5 mg 5 mg DAILY PO Last administered on 01/05/17 09:32; Admin Dose 5 MG; Start 01/01/17 at 09:00 Sodium Chloride (NS) 1,000 ml @ 40 mls/hr Q24H IV Last administered on 00:25; Admin Dose 40 MLS/HR; Start 12/31/16 at 17:44 Ondansetron HCl (Zofran Inj) 4 mg Q6H PRN IV NAUSEA AND/OR VOMITING Last administered on 01/04/17 01:48; Admin Dose 4 MG; Start 12/31/16 at 18:00 Acetaminophen (Tylenol Tab) 650 mg Q6H PRN PO PAIN LEVEL 1-3 OR FEVER Last administered on 01/04/17 03:21; Admin Dose 650 MG; Start 12/31/16 at 18:00 Acetaminophen (Tylenol Supp) 650 mg Q6H PRN [place] PAIN LEVEL 1-3 OR FEVER; Start 12/31/16 at 18:00 Ibuprofen (Motrin) 600 mg Q6H PRN PO PAIN LEVEL 1-3; Start 12/31/16 at 18:00 Acetaminophen/ Hydrocodone Bitart ([place] (5/325)) 1 tab Q6H PRN PO MODERATE PAIN LEVEL 4-6; Start 12/31/16 at 18:00 Docusate Sodium (Colace) 100 mg Q12H PRN PO CONSTIPATION Last administered on 09:32; Admin Dose 100 MG; Start 12/31/16 at 18:00 Magnesium Hydroxide (Milk Of Mag) 30 ml DAILY PRN PO CONSTIPATION; Start at 18:00 Bisacodyl (Dulcolax) 5 mg DAILY PRN PO CONSTIPATION Last administered on 09:32; Admin Dose 5 MG; Start 12/31/16 at 18:00 Bisacodyl (Dulcolax Supp) 10 mg DAILY PRN [place] CONSTIPATION Last administered on 01/06/17 09:28; Admin Dose 10 MG; Start 12/31/16 at 18:00 Zolpidem Tartrate (Ambien) 5 mg QHS PRN PO SLEEP; Start 12/31/16 at 18:00 Enoxaparin Sodium (Lovenox) 40 mg DAILY SC Last administered on 01/06/17 09:16 ; Admin Dose 40 MG; Start 01/01/17 at 09:00 Morphine Sulfate (morphine) 2 mg Q2H PRN IV PAIN LEVEL 7-10 Last administered on 01/06/17 09:12; Admin Dose 2 MG; Start 12/31/16 at 18:30 Miscellaneous Information 1 ea NOTE XX ; Start 01/01/17 at 07:30 Glucose (Glutose) 15 gm Q15M PRN PO DECREASED GLUCOSE; Start 01/01/17 at 07:30 Glucose (Glutose) 22.5 gm Q15M PRN PO DECREASED GLUCOSE; Start 01/01/17 at 07: 30 Dextrose (D50w Syringe) 25 ml Q15M PRN IV DECREASED GLUCOSE; Start 01/01/17 at 07:30 Dextrose (D50w Syringe) 50 ml Q15M PRN IV DECREASED GLUCOSE; Start 01/01/17 at 07:30 Glucagon (Glucagen) 1 mg Q15M PRN IM DECREASED GLUCOSE; Start 01/01/17 at 07:30 Glucose (Glutose) 15 gm Q15M PRN BUCCAL DECREASED GLUCOSE; Start 01/01/17 at 07 :30 Lubiprostone (Amitiza) 24 mcg BID PO Last administered on 01/06/17 09:12; Admin Dose 24 MCG; Start 01/01/17 at 21:00 Pantoprazole 40 mg 40 mg DAILY@06 PO Last administered on 01/06/17 05:48; Admin Dose 40 MG; Start 01/03/17 at 06:00 Ertapenem/Sodium Chloride (Invanz/NS) 100 ml @ 200 mls/hr Q24H IVPB Last administered on 01/06/17 15:56; Admin Dose 200 MLS/HR; Start 01/03/17 at 15:00 Sodium Hypochlorite (Dakin'S (1/4 Strength)) 1 applic DAILY IRR Last administered on 01/06/17 09:16; Admin Dose 1 APPLIC; Start 01/04/17 at 13:30 Diagnostic Test (Pha) (Accu-Chek) 1 ea 02 XX ; Start 01/05/17 at 02:00 Diagnostic Test (Pha) 1 ea 1 ea 02 XX ; Start 01/05/17 at 02:00 Vancomycin HCl (Vancocin) 250 ml @ 125 mls/hr Q12H IVPB Last administered on 17:25; Admin Dose 125 MLS/HR; Start 01/06/17 at 04:00 Miscellaneous Information (*Rx Drug Level Order Reminder*) VANCOMYCIN TROUGH AT 1500 ONCE ONCE XX ; Start 01/07/17 at 15:00; Stop 01/07/17 at 15:01 MICHAEL HAIDER NP Jan 06, 2017 19:46
[2017-01-06 20:17] VITALS: BP 99/52; RESP 18
[2017-01-07] MEDS: ACCU-CHEK XX SCH ×2 (02:00)
[2017-01-07] MEDS: VANCOMYCIN 1 GM in NS 250 ML IVPB SCH (03:49)
[2017-01-07] MEDS: PANTOPRAZOLE (EC) 40 MG TAB PO SCH (05:20)
[2017-01-07 05:50] LABS: CREATININE 0.84 mg/dl (0.61-1.24)
[2017-01-07] MEDS: INSULIN ASPART [NOVOLOG] 3 ML PEN SC SCH ×4 (07:50→21:00)
[2017-01-07 08:04] VITALS: BP 109/55; RESP 16
[2017-01-07] MEDS: LISINOPRIL 5 MG TAB PO SCH (09:00)
[2017-01-07] MEDS: ASPIRIN (EC) 81 MG TAB PO SCH (09:19)
[2017-01-07] MEDS: GABAPENTIN 300 MG CAP PO SCH ×2 (09:19→22:57)
[2017-01-07] MEDS: GEMFIBROZIL 600 MG TAB PO SCH ×2 (09:19→22:56)
[2017-01-07] MEDS: FERROUS SULFATE (EC) 325 MG TAB PO SCH ×2 (09:20→22:57)
[2017-01-07] MEDS: LUBIPROSTONE 24 MCG CAP PO SCH ×2 (09:20→22:56)
[2017-01-07] MEDS: DICLOFENAC (EC) 75 MG TAB PO SCH ×3 (09:20→22:56)
[2017-01-07] MEDS: SODIUM HYPOCHLORITE 0.125% 473 ML BTL IRR SCH (09:20)
[2017-01-07] MEDS: metFORMIN 500 MG TAB PO SCH ×2 (09:20→17:23)
[2017-01-07] MEDS: ENOXAPARIN 40 MG/0.4 ML SYG SC SCH (09:21)
[2017-01-07] MEDS: morphine 2 MG INJ IV PRN (09:24)
--- NOTE | 2017-01-07 14:36 | CONS ---
Date/Time of Note Date/Time of Note DATE: 01/07/17 TIME: 14:31 Assessment/Plan Assessment/Plan Chief Complaint/Hosp Course ID PROGRESS NOTE CURRENT ABX => Vanco IV + Ertapenem 24H INTERVAL SUMMARY * POD #4 -> S/p Right Groin Wound debridement 01/03/17 * Plastic surgery consulted for Bilateral inguinal and buttock hidradenitis suppurativa s/p multiple I&Ds 01/03 * WBC 5.4, ESR 91, no fevers, VSS * 01/03/17 WOUND CXOUND CULTURE Final Organism 1 PROTEUS MIRABILIS QUANTITY 3+ Organism 2 VANCO RESISTANT ENTEROCOCCUS QUANTITY 1+ . MULTI DRUG RESISTANT ORGANISM P. MIRAB VRE M.I.C. RX M.I.C. RX --------- --- --------- --- AMIKACIN <=2 S AMPICILLIN <=2 S 8 S CEFOTAXIME S CIPROFLOXACIN >=4 R 2 I GENTAMICIN 8 I GENTAMICIN 120 S LEVOFLOXACIN >=8 R 4 I LINEZOLID 2 S PENICILLIN-G 1 S QUINUPRISTIN/DALFOPRISTIN >16 R STREPTOMYCIN 300 S VANCOMYCIN >=32 R TOBRAMYCIN 8 I TRIMETHOPRIM/SULFAMETHOXAZOLE >=320 R * Recent wound cx 01/01/17 : WOUND CULTURE Final Organism 1 ESCHERICHIA COLI QUANTITY 2+ Organism 2 PROTEUS MIRABILIS QUANTITY 1+ E COLI P. MIRAB M.I.C. RX M.I.C. RX --------- --- --------- --- AMIKACIN <=2 S AMPICILLIN >=32 R <=2 S CEFAZOLIN R I CEFOTAXIME S S CIPROFLOXACIN >=4 R >=4 R GENTAMICIN >=16 R <=1 S LEVOFLOXACIN >=8 R 4 I TOBRAMYCIN 8 I 2 S TRIMETHOPRIM/SULFAMETHOXAZOLE >=320 R 40 S PHYSICAL EXAMINATION: GENERAL: VSS, NAD, Afebrile, 62 yo M HEENT: Unremarkable NECK: Supple CHEST: Rise symmetrical, without dyspnea on observation HEART: Pulse RRR ABDOMEN: Soft EXTREMITIES: Warm, groin dsg c/d/i ID ASSESSMENT 61 yo M admit with: 1. SIRS w/low grade Tmax 99.8, ESR 91 due to recurrent R-groin infected wound * POD # -> S/p Right Groin Wound debridement 01/03/17 * 01/03/17 WOUND CXOUND CULTURE Final Organism 1 PROTEUS MIRABILIS QUANTITY 3+ Organism 2 VANCO RESISTANT ENTEROCOCCUS QUANTITY 1+ 2. Hx of bilateral groin hidradenitis suppurativa -> Hx of prior wound debridement 3. DM Type 2, Diabetic Peripheral Neuropathy 4. HTN 5. HLD 6. Hx of Anemia requiring PRBC Tx 7. Chronic pain issues 8. Limited mobility w/ decubitus ulcers, ( -)MRSA Nares INVASIVES: PIV, ABX ALLERGY: NKDA CURRENT ABX: DAY #=> => Vanco IV + Ertapenem ID RECOMMENDATIONS 1. DC Vanco and start Zyvox for VRE coverage 2. Continue Ertapenem per hx of PCN allergy 3. Pending plastic surgery consult . . Problems: Consultation Date/Type/Reason Admit Date/Time Dec 31, 2016 at 18:07 Initial Consult Date 12/31/16 Type of Consultation: ID Referring Provider: TAMARA SMITH MD Exam/Review of Systems Vital Signs Vitals Vital Signs Date Time Temp Pulse Resp B/P Pulse Ox O2 Delivery O2 Flow Rate FiO2 01/07/17 08:04 98.0 86 16 109/55 94 01/04/17 06:37 Room Air 01/03/17 22:32 2.0 Intake and Output 01/06/17 01/06/17 01/07/17 15:00 23:00 07:00 Intake Total 1090 ml 1030 ml Output Total 400 ml Balance 1090 ml 630 ml Results Result Diagram: 01/06/17 0450 01/07/17 0455 Results 24 hrs Laboratory Tests Test 01/06/17 17:38 01/06/17 20:23 01/07/17 04:55 01/07/17 07:43 Bedside Glucose 94 115 101 Blood Urea Nitrogen 17 Creatinine 0.84 Test 01/07/17 11:45 Bedside Glucose 138 Medications Medications Current Medications Aspirin (Halfprin) 81 mg DAILY PO Last administered on 01/07/17 09:19; Admin Dose 81 MG; Start 01/01/17 at 09:00 Diclofenac Sodium (Voltaren) 75 mg TID PO Last administered on 01/07/17 12:55 ; Admin Dose 75 MG; Start 12/31/16 at 21:00 Ferrous Sulfate (Ferrous Sulfate (Ec)) 325 mg BID PO Last administered on 09:20; Admin Dose 325 MG; Start 12/31/16 at 21:00 Gabapentin (Neurontin) 300 mg BID PO Last administered on 01/07/17 09:19; Admin Dose 300 MG; Start 12/31/16 at 21:00 Gemfibrozil (Lopid) 600 mg BID PO Last administered on 01/07/17 09:19; Admin Dose 600 MG; Start 12/31/16 at 21:00 Lisinopril 5 mg 5 mg DAILY PO Last administered on 01/05/17 09:32; Admin Dose 5 MG; Start 01/01/17 at 09:00 Sodium Chloride (NS) 1,000 ml @ 40 mls/hr Q24H IV Last administered on 23:37; Admin Dose 40 MLS/HR; Start 12/31/16 at 17:44 Ondansetron HCl (Zofran Inj) 4 mg Q6H PRN IV NAUSEA AND/OR VOMITING Last administered on 01/04/17 01:48; Admin Dose 4 MG; Start 12/31/16 at 18:00 Acetaminophen (Tylenol Tab) 650 mg Q6H PRN PO PAIN LEVEL 1-3 OR FEVER Last administered on 01/04/17 03:21; Admin Dose 650 MG; Start 12/31/16 at 18:00 Acetaminophen (Tylenol Supp) 650 mg Q6H PRN [place] PAIN LEVEL 1-3 OR FEVER; Start 12/31/16 at 18:00 Ibuprofen (Motrin) 600 mg Q6H PRN PO PAIN LEVEL 1-3; Start 12/31/16 at 18:00 Acetaminophen/ Hydrocodone Bitart ([place] (5/325)) 1 tab Q6H PRN PO MODERATE PAIN LEVEL 4-6; Start 12/31/16 at 18:00 Docusate Sodium (Colace) 100 mg Q12H PRN PO CONSTIPATION Last administered on 09:32; Admin Dose 100 MG; Start 12/31/16 at 18:00 Magnesium Hydroxide (Milk Of Mag) 30 ml DAILY PRN PO CONSTIPATION; Start at 18:00 Bisacodyl (Dulcolax) 5 mg DAILY PRN PO CONSTIPATION Last administered on 09:32; Admin Dose 5 MG; Start 12/31/16 at 18:00 Bisacodyl (Dulcolax Supp) 10 mg DAILY PRN [place] CONSTIPATION Last administered on 01/06/17 09:28; Admin Dose 10 MG; Start 12/31/16 at 18:00 Zolpidem Tartrate (Ambien) 5 mg QHS PRN PO SLEEP; Start 12/31/16 at 18:00 Enoxaparin Sodium (Lovenox) 40 mg DAILY SC Last administered on 01/07/17 09:21 ; Admin Dose 40 MG; Start 01/01/17 at 09:00 Morphine Sulfate (morphine) 2 mg Q2H PRN IV PAIN LEVEL 7-10 Last administered on 01/07/17 09:24; Admin Dose 2 MG; Start 12/31/16 at 18:30 Miscellaneous Information 1 ea NOTE XX ; Start 01/01/17 at 07:30 Glucose (Glutose) 15 gm Q15M PRN PO DECREASED GLUCOSE; Start 01/01/17 at 07:30 Glucose (Glutose) 22.5 gm Q15M PRN PO DECREASED GLUCOSE; Start 01/01/17 at 07: 30 Dextrose (D50w Syringe) 25 ml Q15M PRN IV DECREASED GLUCOSE; Start 01/01/17 at 07:30 Dextrose (D50w Syringe) 50 ml Q15M PRN IV DECREASED GLUCOSE; Start 01/01/17 at 07:30 Glucagon (Glucagen) 1 mg Q15M PRN IM DECREASED GLUCOSE; Start 01/01/17 at 07:30 Glucose (Glutose) 15 gm Q15M PRN BUCCAL DECREASED GLUCOSE; Start 01/01/17 at 07 :30 Lubiprostone (Amitiza) 24 mcg BID PO Last administered on 01/07/17 09:20; Admin Dose 24 MCG; Start 01/01/17 at 21:00 Pantoprazole 40 mg 40 mg DAILY@06 PO Last administered on 4/25/17at 05:20; Admin Dose 40 MG; Start 01/03/17 at 06:00 Ertapenem/Sodium Chloride (Invanz/NS) 100 ml @ 200 mls/hr Q24H IVPB Last administered on 01/06/17 15:56; Admin Dose 200 MLS/HR; Start 01/03/17 at 15:00 Sodium Hypochlorite (Dakin'S (/ Strength)) 1 applic DAILY IRR Last administered on 01/07/17 09:20; Admin Dose 1 APPLIC; Start 01/04/17 at 13:30 Diagnostic Test (Pha) 1 ea 1 ea 02 XX ; Start 01/05/17 at 02:00 Vancomycin HCl (Vancocin) 250 ml @ 125 mls/hr Q12H IVPB Last administered on 03:49; Admin Dose 125 MLS/HR; Start 01/06/17 at 04:00 Miscellaneous Information (*Rx Drug Level Order Reminder*) VANCOMYCIN TROUGH AT 1500 ONCE ONCE XX ; Start 01/07/17 at 15:00; Stop 01/07/17 at 15:01 MICHAEL HAIDER NP Jan 07, 2017 14:35
--- NOTE | 2017-01-07 14:47 | CONS ---
Date/Time of Note Date/Time of Note DATE: 01/07/17 TIME: 14:42 Assessment/Plan Assessment/Plan Chief Complaint/Hosp Course 61 yo M c/ hidradenitis, stable at this time, the patient needs local wound care and pain control. he is a candidate for a wide excision of the affected areas, but this would necesesitate several weeks-months of wound care and may be planned at a later date. no acute surgical intervention necessary at this time from my perspective. when pain is controlled, he may be discharged home and follow up at a wound clinic. I spent 55 minutes on this patient, and >50% was spent in counseling and/or coordination of care Problems: Consultation Date/Type/Reason Admit Date/Time Dec 31, 2016 at 18:07 Reason for Consultation hidradenitis Hx of Present Illness 61 yo M presents with hidradenitis of the bilateral inguinal region and bilateral buttocks region. He has undergone I&D by Dr. Martinez. His wounds are currently being packed. I was consulted to evaluate for treatment recommendations negative except as noted. reports some pain in affected areas Constitutional: improved, no complaints Eyes: no complaints ENT: no complaints Respiratory: no complaints Cardiovascular: no complaints Gastrointestinal: no complaints Genitourinary: no complaints Musculoskeletal: no complaints Skin: no complaints Neurologic: no complaints Psychological: nl mood/affect, no complaints Social History Smoking Status: Current every day smoker Exam/Review of Systems Vital Signs Vitals Vital Signs Date Time Temp Pulse Resp B/P Pulse Ox O2 Delivery O2 Flow Rate FiO2 01/07/17 08:04 98.0 86 16 109/55 94 01/04/17 06:37 Room Air 01/03/17 22:32 2.0 Intake and Output 01/06/17 01/06/17 01/07/17 15:00 23:00 07:00 Intake Total 1090 ml 1030 ml Output Total 400 ml Balance 1090 ml 630 ml Exam General: NAD bilateral inguinal region with multiple areas packed with gauze. bilateral buttock region with packing in place in multiple areas. no purulence noted Results Result Diagram: 01/06/17 0450 01/07/17 0455 Results 24 hrs Laboratory Tests Test 01/06/17 17:38 01/06/17 20:23 01/07/17 04:55 01/07/17 07:43 Bedside Glucose 94 115 101 Blood Urea Nitrogen 17 Creatinine 0.84 Test 01/07/17 11:45 Bedside Glucose 138 Medications Medications Current Medications Aspirin (Halfprin) 81 mg DAILY PO Last administered on 01/07/17 09:19; Admin Dose 81 MG; Start 01/01/17 at 09:00 Diclofenac Sodium (Voltaren) 75 mg TID PO Last administered on 01/07/17 12:55 ; Admin Dose 75 MG; Start 12/31/16 at 21:00 Ferrous Sulfate (Ferrous Sulfate (Ec)) 325 mg BID PO Last administered on 09:20; Admin Dose 325 MG; Start 12/31/16 at 21:00 Gabapentin (Neurontin) 300 mg BID PO Last administered on 01/07/17 09:19; Admin Dose 300 MG; Start 12/31/16 at 21:00 Gemfibrozil (Lopid) 600 mg BID PO Last administered on 01/07/17 09:19; Admin Dose 600 MG; Start 12/31/16 at 21:00 Lisinopril 5 mg 5 mg DAILY PO Last administered on 01/05/17 09:32; Admin Dose 5 MG; Start 01/01/17 at 09:00 Sodium Chloride (NS) 1,000 ml @ 40 mls/hr Q24H IV Last administered on 23:37; Admin Dose 40 MLS/HR; Start 12/31/16 at 17:44 Ondansetron HCl (Zofran Inj) 4 mg Q6H PRN IV NAUSEA AND/OR VOMITING Last administered on 01/04/17 01:48; Admin Dose 4 MG; Start 12/31/16 at 18:00 Acetaminophen (Tylenol Tab) 650 mg Q6H PRN PO PAIN LEVEL 1-3 OR FEVER Last administered on 01/04/17 03:21; Admin Dose 650 MG; Start 12/31/16 at 18:00 Acetaminophen (Tylenol Supp) 650 mg Q6H PRN [place] PAIN LEVEL 1-3 OR FEVER; Start 12/31/16 at 18:00 Ibuprofen (Motrin) 600 mg Q6H PRN PO PAIN LEVEL 1-3; Start 12/31/16 at 18:00 Acetaminophen/ Hydrocodone Bitart ([place] (5/325)) 1 tab Q6H PRN PO MODERATE PAIN LEVEL 4-6; Start 12/31/16 at 18:00 Docusate Sodium (Colace) 100 mg Q12H PRN PO CONSTIPATION Last administered on 09:32; Admin Dose 100 MG; Start 12/31/16 at 18:00 Magnesium Hydroxide (Milk Of Mag) 30 ml DAILY PRN PO CONSTIPATION; Start at 18:00 Bisacodyl (Dulcolax) 5 mg DAILY PRN PO CONSTIPATION Last administered on 09:32; Admin Dose 5 MG; Start 12/31/16 at 18:00 Bisacodyl (Dulcolax Supp) 10 mg DAILY PRN [place] CONSTIPATION Last administered on 01/06/17 09:28; Admin Dose 10 MG; Start 12/31/16 at 18:00 Zolpidem Tartrate (Ambien) 5 mg QHS PRN PO SLEEP; Start 12/31/16 at 18:00 Enoxaparin Sodium (Lovenox) 40 mg DAILY SC Last administered on 01/07/17 09:21 ; Admin Dose 40 MG; Start 01/01/17 at 09:00 Morphine Sulfate (morphine) 2 mg Q2H PRN IV PAIN LEVEL 7-10 Last administered on 01/07/17 09:24; Admin Dose 2 MG; Start 12/31/16 at 18:30 Miscellaneous Information 1 ea NOTE XX ; Start 01/01/17 at 07:30 Glucose (Glutose) 15 gm Q15M PRN PO DECREASED GLUCOSE; Start 01/01/17 at 07:30 Glucose (Glutose) 22.5 gm Q15M PRN PO DECREASED GLUCOSE; Start 01/01/17 at 07: 30 Dextrose (D50w Syringe) 25 ml Q15M PRN IV DECREASED GLUCOSE; Start 01/01/17 at 07:30 Dextrose (D50w Syringe) 50 ml Q15M PRN IV DECREASED GLUCOSE; Start 01/01/17 at 07:30 Glucagon (Glucagen) 1 mg Q15M PRN IM DECREASED GLUCOSE; Start 01/01/17 at 07:30 Glucose (Glutose) 15 gm Q15M PRN BUCCAL DECREASED GLUCOSE; Start 01/01/17 at 07 :30 Lubiprostone (Amitiza) 24 mcg BID PO Last administered on 01/07/17 09:20; Admin Dose 24 MCG; Start 01/01/17 at 21:00 Pantoprazole 40 mg 40 mg DAILY@06 PO Last administered on 01/07/17 05:20; Admin Dose 40 MG; Start 01/03/17 at 06:00 Ertapenem/Sodium Chloride (Invanz/NS) 100 ml @ 200 mls/hr Q24H IVPB Last administered on 01/06/17 15:56; Admin Dose 200 MLS/HR; Start 01/03/17 at 15:00 Sodium Hypochlorite (Dakin'S (09/18 Strength)) 1 applic DAILY IRR Last administered on 01/07/17 09:20; Admin Dose 1 APPLIC; Start 01/04/17 at 13:30 Diagnostic Test (Pha) (Accu-Chek) 1 ea 02 XX ; Start 01/05/17 at 02:00 Miscellaneous Information (*Rx Drug Level Order Reminder*) VANCOMYCIN TROUGH AT 1500 ONCE ONCE XX ; Start 01/07/17 at 15:00; Stop 01/07/17 at 15:01 Linezolid (Zyvox) 600 mg BID PO ; Start 01/07/17 at 21:00; Status MARISABEL RANKIN MD Jan 07, 2017 14:47
[2017-01-07] MEDS: ERTAPENEM SODIUM 1 GM in SOD CHLORIDE 0.9% 100 ML IVPB SCH (15:08)
--- NOTE | 2017-01-07 15:08 | PN ---
Date/Time of Note Date/Time of Note DATE: 01/07/17 TIME: 15:07 Assessment/Plan Lines/Catheters IV Catheter Type (from Nrs): Peripheral IV Rahman in Place (from Nrs): No Assessment/Plan Chief Complaint/Hosp Course 1. Bilateral inguinal and buttock hidradenitis suppurativa s/p multiple I&Ds -antibiotics -fluids -wound care -off loading -nutrition optimization -vit c -Plastic input appreciated. 2. Significant anemia, iron deficiency of unknown etiology. Stable. 3. Hypoalbuminemia is probably multifactorial; however, he will benefit from optimization of his nutrition. 4. Hypertension. Continue diet and medication control. 4. Diabetes. Continue diet and medication control. 5. Hypercholesterolemia. Continue diet and medication control. Thank you, Problems: Subjective 24 Hr Interval Summary Plastics consult noted. s/p Multiple I&Ds 01/03. Pain at the sites improving. Denies f/c/cp/sob/cough/henry. No visual or neuro changes. No dysuria. Bowel function. No bloating. Exam/Review of Systems Vital Signs Vitals Vital Signs Date Time Temp Pulse Resp B/P Pulse Ox O2 Delivery O2 Flow Rate FiO2 01/07/17 08:04 98.0 86 16 109/55 94 01/04/17 06:37 Room Air 01/03/17 22:32 2.0 Intake and Output 01/06/17 01/06/17 01/07/17 15:00 23:00 07:00 Intake Total 1090 ml 1030 ml Output Total 400 ml Balance 1090 ml 630 ml Exam Free Text/Dictation GENERAL: No acute distress, comfortable, pleasant. HEENT: Pupils equal, reactive. No scleral icterus. Mucous membranes are moist. NECK: Supple, no JVD. PULMONARY: No respiratory distress with normal respiratory effort. No wheezing. CARDIAC: S1, S2 present. ABDOMEN: Soft, nontender. GENITOURINARY: Bilateral inguinal and partial scrotal wounds with packings and tenderness. SKIN: No rashes or jaundice; however hidradenitis bilateral inguinal and buttock wounds RECTAL: Not done. VASCULAR: Capillary refill is 2 seconds. Results Result Diagram: 01/06/17 0450 01/07/17 0455 STARR MISHRA MD Jan 07, 2017 15:08
--- NOTE | 2017-01-07 19:04 | PN ---
Date/Time of Note Date/Time of Note DATE: 01/07/17 TIME: 19:03 Assessment/Plan VTE Prophylaxis VTE Prophylaxis Intervention: other Lines/Catheters [facility] Peripheral IV Urinary Cath still in place: No Assessment/Plan Chief Complaint/Hosp Course IMPRESSION: 1. Patient has suppurativa hidradenitis recurrence.on antibiotic 2. Groin wound. s/p i and d 3. Patient has diabetes mellitus. 4. The patient has anemia. 5. The patient has elevated ESR. 6 LEG EDEMA plan wound care antibiotic per surgery snf soon LASIX Problems: Subjective 24 Hr Interval Summary Respiratory: no complaints Cardiovascular: no complaints Exam/Review of Systems Vital Signs Vitals Vital Signs Date Time Temp Pulse Resp B/P Pulse Ox O2 Delivery O2 Flow Rate FiO2 01/07/17 08:04 98.0 86 16 109/55 94 01/04/17 06:37 Room Air 01/03/17 22:32 2.0 Intake and Output 01/06/17 01/06/17 01/07/17 15:00 23:00 07:00 Intake Total 1090 ml 1030 ml Output Total 400 ml Balance 1090 ml 630 ml Exam Respiratory: clear to auscultation Cardiovascular: regular rate and rhythm Gastrointestinal: soft Musculoskeletal: nl extremities to inspection Extremities: edema (+), normal pulses Results Result Diagram: 01/06/17 0450 01/07/17 0455 Results 24 hrs Laboratory Tests Test 01/06/17 20:23 01/07/17 04:55 01/07/17 07:43 01/07/17 11:45 Bedside Glucose 115 101 138 Blood Urea Nitrogen 17 Creatinine 0.84 Test 01/07/17 17:21 Bedside Glucose 92 Medications Medications Current Medications Aspirin (Halfprin) 81 mg DAILY PO Last administered on 01/07/17 09:19; Admin Dose 81 MG; Start 01/01/17 at 09:00 Diclofenac Sodium (Voltaren) 75 mg TID PO Last administered on 01/07/17 12:55 ; Admin Dose 75 MG; Start 12/31/16 at 21:00 Ferrous Sulfate (Ferrous Sulfate (Ec)) 325 mg BID PO Last administered on 09:20; Admin Dose 325 MG; Start 12/31/16 at 21:00 Gabapentin (Neurontin) 300 mg BID PO Last administered on 01/07/17 09:19; Admin Dose 300 MG; Start 12/31/16 at 21:00 Gemfibrozil (Lopid) 600 mg BID PO Last administered on 01/07/17 09:19; Admin Dose 600 MG; Start 12/31/16 at 21:00 Lisinopril (Zestril) 5 mg DAILY PO Last administered on 01/05/17 09:32; Admin Dose 5 MG; Start 01/01/17 at 09:00 Ondansetron HCl (Zofran Inj) 4 mg Q6H PRN IV NAUSEA AND/OR VOMITING Last administered on 01/04/17 01:48; Admin Dose 4 MG; Start 12/31/16 at 18:00 Acetaminophen (Tylenol Tab) 650 mg Q6H PRN PO PAIN LEVEL 1-3 OR FEVER Last administered on 01/04/17 03:21; Admin Dose 650 MG; Start 12/31/16 at 18:00 Acetaminophen (Tylenol Supp) 650 mg Q6H PRN [place] PAIN LEVEL 1-3 OR FEVER; Start 12/31/16 at 18:00 Ibuprofen (Motrin) 600 mg Q6H PRN PO PAIN LEVEL 1-3; Start 12/31/16 at 18:00 Acetaminophen/ Hydrocodone Bitart ([place] (5/325)) 1 tab Q6H PRN PO MODERATE PAIN LEVEL 4-6; Start 12/31/16 at 18:00 Docusate Sodium (Colace) 100 mg Q12H PRN PO CONSTIPATION Last administered on 09:32; Admin Dose 100 MG; Start 12/31/16 at 18:00 Magnesium Hydroxide (Milk Of Mag) 30 ml DAILY PRN PO CONSTIPATION; Start at 18:00 Bisacodyl (Dulcolax) 5 mg DAILY PRN PO CONSTIPATION Last administered on 09:32; Admin Dose 5 MG; Start 12/31/16 at 18:00 Bisacodyl (Dulcolax Supp) 10 mg DAILY PRN [place] CONSTIPATION Last administered on 01/06/17 09:28; Admin Dose 10 MG; Start 12/31/16 at 18:00 Zolpidem Tartrate (Ambien) 5 mg QHS PRN PO SLEEP; Start 12/31/16 at 18:00 Enoxaparin Sodium (Lovenox) 40 mg DAILY SC Last administered on 01/07/17 09:21 ; Admin Dose 40 MG; Start 01/01/17 at 09:00 Morphine Sulfate (morphine) 2 mg Q2H PRN IV PAIN LEVEL 7-10 Last administered on 01/07/17 09:24; Admin Dose 2 MG; Start 12/31/16 at 18:30 Miscellaneous Information 1 ea NOTE XX ; Start 01/01/17 at 07:30 Glucose (Glutose) 15 gm Q15M PRN PO DECREASED GLUCOSE; Start 01/01/17 at 07:30 Glucose (Glutose) 22.5 gm Q15M PRN PO DECREASED GLUCOSE; Start 01/01/17 at 07: 30 Dextrose (D50w Syringe) 25 ml Q15M PRN IV DECREASED GLUCOSE; Start 01/01/17 at 07:30 Dextrose (D50w Syringe) 50 ml Q15M PRN IV DECREASED GLUCOSE; Start 01/01/17 at 07:30 Glucagon (Glucagen) 1 mg Q15M PRN IM DECREASED GLUCOSE; Start 01/01/17 at 07:30 Glucose (Glutose) 15 gm Q15M PRN BUCCAL DECREASED GLUCOSE; Start 01/01/17 at 07 :30 Lubiprostone (Amitiza) 24 mcg BID PO Last administered on 01/07/17 09:20; Admin Dose 24 MCG; Start 01/01/17 at 21:00 Pantoprazole 40 mg 40 mg DAILY@06 PO Last administered on 01/07/17 05:20; Admin Dose 40 MG; Start 01/03/17 at 06:00 Ertapenem/Sodium Chloride (Invanz/NS) 100 ml @ 200 mls/hr Q24H IVPB Last administered on 01/07/17 15:08; Admin Dose 200 MLS/HR; Start 01/03/17 at 15:00 Sodium Hypochlorite (Dakin'S (1/4 Strength)) 1 applic DAILY IRR Last administered on 01/07/17 09:20; Admin Dose 1 APPLIC; Start 01/04/17 at 13:30 Diagnostic Test (Pha) (Accu-Chek) 1 ea 02 XX ; Start 01/05/17 at 02:00 Linezolid (Zyvox) 600 mg BID PO ; Start 4/25/17 at 21:00 TAMARA SMITH MD Jan 07, 2017 19:04
[2017-01-07 19:45] VITALS: BP 115/58; RESP 18
[2017-01-07] MEDS: ZYVOX 600 MG TAB PO SCH (22:57)
[2017-01-08] MEDS: morphine 2 MG INJ IV PRN ×2 (00:45→21:19)
[2017-01-08] MEDS: ACCU-CHEK XX SCH (01:38)
[2017-01-08] MEDS: PANTOPRAZOLE (EC) 40 MG TAB PO SCH (06:23)
[2017-01-08 07:25] VITALS: BP 134/62; RESP 18
[2017-01-08] MEDS: metFORMIN 500 MG TAB PO SCH ×2 (08:12→18:18)
[2017-01-08] MEDS: INSULIN ASPART [NOVOLOG] 3 ML PEN SC SCH ×4 (08:17→21:00)
[2017-01-08] MEDS: ENOXAPARIN 40 MG/0.4 ML SYG SC SCH ×2 (09:00→10:26)
[2017-01-08] MEDS: DICLOFENAC (EC) 75 MG TAB PO SCH ×3 (10:24→21:10)
[2017-01-08] MEDS: LUBIPROSTONE 24 MCG CAP PO SCH ×2 (10:24→21:10)
[2017-01-08] MEDS: FUROSEMIDE 20 MG INJ IV SCH (10:25)
[2017-01-08] MEDS: ASPIRIN (EC) 81 MG TAB PO SCH (10:25)
[2017-01-08] MEDS: GEMFIBROZIL 600 MG TAB PO SCH ×2 (10:25→21:10)
[2017-01-08] MEDS: LISINOPRIL 5 MG TAB PO SCH (10:25)
[2017-01-08] MEDS: ZYVOX 600 MG TAB PO SCH ×2 (10:25→21:10)
[2017-01-08] MEDS: FERROUS SULFATE (EC) 325 MG TAB PO SCH ×2 (10:25→21:10)
[2017-01-08] MEDS: GABAPENTIN 300 MG CAP PO SCH ×2 (10:25→21:10)
[2017-01-08] MEDS: SODIUM HYPOCHLORITE 0.125% 473 ML BTL IRR SCH (10:27)
[2017-01-08] MEDS: ERTAPENEM SODIUM 1 GM in SOD CHLORIDE 0.9% 100 ML IVPB SCH (16:14)
[2017-01-08 19:45] VITALS: BP 106/54; RESP 18
--- NOTE | 2017-01-08 19:47 | CONS ---
Date/Time of Note Date/Time of Note DATE: 01/08/17 TIME: 19:40 Assessment/Plan Assessment/Plan Chief Complaint/Hosp Course ID PROGRESS NOTE CURRENT ABX => Zyvox #3 + Ertapenem #6 Vanco IV -> DC 01/07 24H INTERVAL SUMMARY * POD #5 -> S/p Right Groin Wound debridement 01/03/17 * Patient remains in hospital for IV ABX and wound packing * Plastic surgery consult completed 01/07 with recommendation to clear the infection prior to OP follow up for wide excision of surgical areas. * A/A/O -- No new issues, no c/o, No fevers, pain is controlled, spends most of the resting in bed, NAD, PLT 198 on Zyvox PHYSICAL EXAMINATION: GENERAL: VSS, NAD, Afebrile, 62 yo M HEENT: Unremarkable NECK: Supple CHEST: Rise symmetrical, without dyspnea on observation HEART: Pulse RRR ABDOMEN: Soft EXTREMITIES: Warm, groin dsg c/d/i ID ASSESSMENT 61 yo M admit with: 1. SIRS w/low grade Tmax 99.8, ESR 91 due to recurrent R-groin infected wound * POD # -> S/p Right Groin Wound debridement 01/03/17 * 01/03/17 WOUND CXOUND CULTURE Final Organism 1 PROTEUS MIRABILIS Organism 2 VANCO RESISTANT ENTEROCOCCUS 2. Hx of bilateral groin hidradenitis suppurativa -> Hx of prior wound debridement 3. DM Type 2, Diabetic Peripheral Neuropathy 4. HTN 5. HLD 6. Hx of Anemia requiring PRBC Tx 7. Chronic pain issues 8. Limited mobility w/ decubitus ulcers, ( -)MRSA Nares INVASIVES: PIV, ABX ALLERGY: PCN CURRENT ABX: Zyvox #3 + Ertapenem #6 ID RECOMMENDATIONS 1. Zyvox for VRE coverage & Continue Ertapenem per hx of PCN allergy 2. Patient remains in hospital for IV ABX and wound packing 3. PLAN: Plastic surgery consult completed 01/07 with recommendation to clear the infection prior to OP follow up for wide excision of surgical areas. . . . Problems: Consultation Date/Type/Reason Admit Date/Time Dec 31, 2016 at 18:07 Initial Consult Date 12/31/16 Type of Consultation: ID Referring Provider: TAMARA SMITH MD Exam/Review of Systems Vital Signs Vitals Vital Signs Date Time Temp Pulse Resp B/P Pulse Ox O2 Delivery O2 Flow Rate FiO2 01/08/17 07:25 98.8 88 18 134/62 94 Intake and Output 01/07/17 01/07/17 01/08/17 15:00 23:00 07:00 Intake Total 1260 ml 360 ml Output Total 800 ml 375 ml Balance 460 ml -15 ml Results Result Diagram: 01/06/17 0450 01/07/17 0455 Results 24 hrs Laboratory Tests Test 01/07/17 22:53 01/08/17 08:14 01/08/17 12:14 01/08/17 18:18 Bedside Glucose 102 163 191 155 Medications Medications Current Medications Aspirin (Halfprin) 81 mg DAILY PO Last administered on 01/08/17 10:25; Admin Dose 81 MG; Start 01/01/17 at 09:00 Diclofenac Sodium (Voltaren) 75 mg TID PO Last administered on 01/08/17 12:13 ; Admin Dose 75 MG; Start 12/31/16 at 21:00 Ferrous Sulfate (Ferrous Sulfate (Ec)) 325 mg BID PO Last administered on 10:25; Admin Dose 325 MG; Start 12/31/16 at 21:00 Gabapentin (Neurontin) 300 mg BID PO Last administered on 01/08/17 10:25; Admin Dose 300 MG; Start 12/31/16 at 21:00 Gemfibrozil (Lopid) 600 mg BID PO Last administered on 01/08/17 10:25; Admin Dose 600 MG; Start 12/31/16 at 21:00 Lisinopril (Zestril) 5 mg DAILY PO Last administered on 01/08/17 10:25; Admin Dose 5 MG; Start 01/01/17 at 09:00 Ondansetron HCl (Zofran Inj) 4 mg Q6H PRN IV NAUSEA AND/OR VOMITING Last administered on 01/04/17 01:48; Admin Dose 4 MG; Start 12/31/16 at 18:00 Acetaminophen (Tylenol Tab) 650 mg Q6H PRN PO PAIN LEVEL 1-3 OR FEVER Last administered on 01/04/17 03:21; Admin Dose 650 MG; Start 12/31/16 at 18:00 Acetaminophen (Tylenol Supp) [address] PAIN LEVEL 1-3 OR FEVER; Start 12/31/16 at 18:00 Ibuprofen (Motrin) 600 mg Q6H PRN PO PAIN LEVEL 1-3; Start 12/31/16 at 18:00 Acetaminophen/ Hydrocodone Bitart ([place] (5/325)) 1 tab Q6H PRN PO MODERATE PAIN LEVEL 4-6; Start 12/31/16 at 18:00 Docusate Sodium (Colace) 100 mg Q12H PRN PO CONSTIPATION Last administered on 09:32; Admin Dose 100 MG; Start 12/31/16 at 18:00 Magnesium Hydroxide (Milk Of Mag) 30 ml DAILY PRN PO CONSTIPATION; Start at 18:00 Bisacodyl (Dulcolax) 5 mg DAILY PRN PO CONSTIPATION Last administered on 09:32; Admin Dose 5 MG; Start 12/31/16 at 18:00 Bisacodyl (Dulcolax Supp) [address] CONSTIPATION Last administered on 01/06/17 09:28; Admin Dose 10 MG; Start 12/31/16 at 18:00 Zolpidem Tartrate (Ambien) 5 mg QHS PRN PO SLEEP; Start 12/31/16 at 18:00 Enoxaparin Sodium (Lovenox) 40 mg DAILY SC Last administered on 01/07/17 09:21 ; Admin Dose 40 MG; Start 01/01/17 at 09:00 Morphine Sulfate (morphine) 2 mg Q2H PRN IV PAIN LEVEL 7-10 Last administered on 01/08/17 00:45; Admin Dose 2 MG; Start 12/31/16 at 18:30 Miscellaneous Information 1 ea NOTE XX ; Start 01/01/17 at 07:30 Glucose (Glutose) 15 gm Q15M PRN PO DECREASED GLUCOSE; Start 01/01/17 at 07:30 Glucose (Glutose) 22.5 gm Q15M PRN PO DECREASED GLUCOSE; Start 01/01/17 at 07: 30 Dextrose (D50w Syringe) 25 ml Q15M PRN IV DECREASED GLUCOSE; Start 01/01/17 at 07:30 Dextrose (D50w Syringe) 50 ml Q15M PRN IV DECREASED GLUCOSE; Start 01/01/17 at 07:30 Glucagon (Glucagen) 1 mg Q15M PRN IM DECREASED GLUCOSE; Start 01/01/17 at 07:30 Glucose (Glutose) 15 gm Q15M PRN BUCCAL DECREASED GLUCOSE; Start 01/01/17 at 07 :30 Lubiprostone (Amitiza) 24 mcg BID PO Last administered on 01/08/17 10:24; Admin Dose 24 MCG; Start 01/01/17 at 21:00 Pantoprazole 40 mg 40 mg DAILY@06 PO Last administered on 01/08/17 06:23; Admin Dose 40 MG; Start 01/03/17 at 06:00 Ertapenem/Sodium Chloride (Invanz/NS) 100 ml @ 200 mls/hr Q24H IVPB Last administered on 01/08/17 16:14; Admin Dose 200 MLS/HR; Start 01/03/17 at 15:00 Sodium Hypochlorite (Dakin'S (/ Strength)) 1 applic DAILY IRR Last administered on 01/08/17 10:27; Admin Dose 1 APPLIC; Start 01/04/17 at 13:30 Diagnostic Test (Pha) (Accu-Chek) 1 ea 02 XX ; Start 01/05/17 at 02:00 Linezolid (Zyvox) 600 mg BID PO Last administered on 01/08/17 10:25; Admin Dose 600 MG; Start 01/07/17 at 21:00 Furosemide (Lasix) 20 mg DAILY IV Last administered on 01/08/17 10:25; Admin Dose 20 MG; Start 01/08/17 at 09:00; Stop 01/10/17 at 09:01 MICHAEL HAIDER NP Jan 08, 2017 19:47
--- NOTE | 2017-01-08 23:10 | PN ---
Date/Time of Note Date/Time of Note DATE: 01/08/17 TIME: 23:08 Assessment/Plan VTE Prophylaxis VTE Prophylaxis Intervention: other Lines/Catheters IV [facility]ter Type (from [facility]): [place] Urinary Cath still in place: No Reason Cath still needed: other (indicate) Assessment/Plan Chief Complaint/Hosp Course IMPRESSION: 1. Patient has suppurativa hidradenitis recurrence.on antibiotic 2. Groin wound. s/p i and d 3. Patient has diabetes mellitus. 4. The patient has anemia. 5. The patient has elevated ESR. 6 LEG EDEMA on lasix plan wound care antibiotic per surgery snf soon LASIX Problems: Subjective 24 Hr Interval Summary Respiratory: no complaints Cardiovascular: no complaints Exam/Review of Systems Vital Signs Vitals Vital Signs Date Time Temp Pulse Resp B/P Pulse Ox O2 Delivery O2 Flow Rate FiO2 01/08/17 19:45 97.7 86 18 106/54 93 Intake and Output 01/07/17 01/07/17 01/08/17 15:00 23:00 07:00 Intake Total 1260 ml 360 ml Output Total 800 ml 375 ml Balance 460 ml -15 ml Exam Cardiovascular: regular rate and rhythm Gastrointestinal: soft Extremities: edema (+) Results Result Diagram: 01/06/17 0450 01/07/17 0455 Results 24 hrs Laboratory Tests Test 01/08/17 08:14 01/08/17 12:14 01/08/17 18:18 01/08/17 21:09 Bedside Glucose 163 191 155 116 Medications Medications Current Medications Aspirin (Halfprin) 81 mg DAILY PO Last administered on 01/08/17 10:25; Admin Dose 81 MG; Start 01/01/17 at 09:00 Diclofenac Sodium (Voltaren) 75 mg TID PO Last administered on 01/08/17 21:10 ; Admin Dose 75 MG; Start 12/31/16 at 21:00 Ferrous Sulfate (Ferrous Sulfate (Ec)) 325 mg BID PO Last administered on 21:10; Admin Dose 325 MG; Start 12/31/16 at 21:00 Gabapentin (Neurontin) 300 mg BID PO Last administered on 01/08/17 21:10; Admin Dose 300 MG; Start 12/31/16 at 21:00 Gemfibrozil (Lopid) 600 mg BID PO Last administered on 01/08/17 21:10; Admin Dose 600 MG; Start 12/31/16 at 21:00 Lisinopril (Zestril) 5 mg DAILY PO Last administered on 01/08/17 10:25; Admin Dose 5 MG; Start 01/01/17 at 09:00 Ondansetron HCl (Zofran Inj) 4 mg Q6H PRN IV NAUSEA AND/OR VOMITING Last administered on 01/04/17 01:48; Admin Dose 4 MG; Start 12/31/16 at 18:00 Acetaminophen (Tylenol Tab) 650 mg Q6H PRN PO PAIN LEVEL 1-3 OR FEVER Last administered on 01/04/17 03:21; Admin Dose 650 MG; Start 12/31/16 at 18:00 Acetaminophen (Tylenol Supp) 650 mg Q6H PRN [place] PAIN LEVEL 1-3 OR FEVER; Start 12/31/16 at 18:00 Ibuprofen (Motrin) 600 mg Q6H PRN PO PAIN LEVEL 1-3; Start 12/31/16 at 18:00 Acetaminophen/ Hydrocodone Bitart ([place] (5/325)) 1 tab Q6H PRN PO MODERATE PAIN LEVEL 4-6; Start 12/31/16 at 18:00 Docusate Sodium (Colace) 100 mg Q12H PRN PO CONSTIPATION Last administered on 09:32; Admin Dose 100 MG; Start 12/31/16 at 18:00 Magnesium Hydroxide (Milk Of Mag) 30 ml DAILY PRN PO CONSTIPATION Last administered on 01/08/17 21:10; Admin Dose 30 ML; Start 12/31/16 at 18:00 Bisacodyl (Dulcolax) 5 mg DAILY PRN PO CONSTIPATION Last administered on 09:32; Admin Dose 5 MG; Start 12/31/16 at 18:00 Bisacodyl (Dulcolax Supp) 10 mg DAILY PRN [place] CONSTIPATION Last administered on 01/06/17 09:28; Admin Dose 10 MG; Start 12/31/16 at 18:00 Zolpidem Tartrate (Ambien) 5 mg QHS PRN PO SLEEP; Start 12/31/16 at 18:00 Enoxaparin Sodium (Lovenox) 40 mg DAILY SC Last administered on 01/07/17 09:21 ; Admin Dose 40 MG; Start 01/01/17 at 09:00 Morphine Sulfate (morphine) 2 mg Q2H PRN IV PAIN LEVEL 7-10 Last administered on 01/08/17 21:19; Admin Dose 2 MG; Start 12/31/16 at 18:30 Miscellaneous Information 1 ea NOTE XX ; Start 01/01/17 at 07:30 Glucose (Glutose) 15 gm Q15M PRN PO DECREASED GLUCOSE; Start 01/01/17 at 07:30 Glucose (Glutose) 22.5 gm Q15M PRN PO DECREASED GLUCOSE; Start 01/01/17 at 07: 30 Dextrose (D50w Syringe) 25 ml Q15M PRN IV DECREASED GLUCOSE; Start 01/01/17 at 07:30 Dextrose (D50w Syringe) 50 ml Q15M PRN IV DECREASED GLUCOSE; Start 01/01/17 at 07:30 Glucagon (Glucagen) 1 mg Q15M PRN IM DECREASED GLUCOSE; Start 01/01/17 at 07:30 Glucose (Glutose) 15 gm Q15M PRN BUCCAL DECREASED GLUCOSE; Start 01/01/17 at 07 :30 Lubiprostone (Amitiza) 24 mcg BID PO Last administered on 01/08/17 21:10; Admin Dose 24 MCG; Start 01/01/17 at 21:00 Pantoprazole 40 mg 40 mg DAILY@06 PO Last administered on 01/08/17 06:23; Admin Dose 40 MG; Start 01/03/17 at 06:00 Ertapenem/Sodium Chloride (Invanz/NS) 100 ml @ 200 mls/hr Q24H IVPB Last administered on 01/08/17 16:14; Admin Dose 200 MLS/HR; Start 01/03/17 at 15:00 Sodium Hypochlorite (Dakin'S (1/4 Strength)) 1 applic DAILY IRR Last administered on 01/08/17 10:27; Admin Dose 1 APPLIC; Start 01/04/17 at 13:30 Diagnostic Test (Pha) (Accu-Chek) 1 ea 02 XX ; Start 01/05/17 at 02:00 Linezolid (Zyvox) 600 mg BID PO Last administered on 01/08/17 21:10; Admin Dose 600 MG; Start 01/07/17 at 21:00 Furosemide (Lasix) 20 mg DAILY IV Last administered on 01/08/17t 10:25; Admin Dose 20 MG; Start 01/08/17 at 09:00; Stop 01/10/17 at 09:01 TAMARA SMITH MD Jan 08, 2017 23:10
[2017-01-09] MEDS: ACCU-CHEK XX SCH (02:00)
[2017-01-09] MEDS: PANTOPRAZOLE (EC) 40 MG TAB PO SCH (06:22)
[2017-01-09 07:15] VITALS: BP 111/53; RESP 18
[2017-01-09] MEDS: INSULIN ASPART [NOVOLOG] 3 ML PEN SC SCH ×4 (08:00→21:00)
--- NOTE | 2017-01-09 08:01 | PN ---
Date/Time of Note Date/Time of Note DATE: 01/08/17 TIME: 13:59 Assessment/Plan Lines/Catheters IV Catheter Type (from [facility]): Saline Lock Rahman in Place (from Nrs): No Assessment/Plan Chief Complaint/Hosp Course 1. Bilateral inguinal and buttock hidradenitis suppurativa s/p multiple I&Ds . Plastic input and follow up appreciated for outpatient eventual surgical intervention -antibiotics -fluids -wound care -off loading -nutrition optimization -vit c 2. Significant anemia, iron deficiency of unknown etiology. Stable. 3. Hypoalbuminemia is probably multifactorial; however, he will benefit from optimization of his nutrition. 4. Hypertension. Continue diet and medication control. 4. Diabetes. Continue diet and medication control. 5. Hypercholesterolemia. Continue diet and medication control. Thank you, Late entry 01/08 Problems: Subjective 24 Hr Interval Summary Pain at the surgical sites. Denies f/c/cp/sob/cough/henry. No visual or neuro changes. No dysuria. Bowel function. No bloating. Exam/Review of Systems Vital Signs Vitals Vital Signs Date Time Temp Pulse Resp B/P Pulse Ox O2 Delivery O2 Flow Rate FiO2 01/08/17 19:45 97.7 86 18 106/54 93 Intake and Output 01/08/17 01/08/17 01/09/17 15:00 23:00 07:00 Intake Total 700 ml Output Total 730 ml Balance -30 ml Exam Free Text/Dictation GENERAL: No acute distress, comfortable, pleasant. HEENT: Pupils equal, reactive. No scleral icterus. Mucous membranes are moist. NECK: Supple, no JVD. PULMONARY: No respiratory distress with normal respiratory effort. No wheezing. CARDIAC: S1, S2 present. ABDOMEN: Soft, nontender. GENITOURINARY: Bilateral inguinal and partial scrotal wounds with packings and tenderness. SKIN: No rashes or jaundice; however hidradenitis bilateral inguinal and buttock wounds RECTAL: Not done. VASCULAR: Capillary refill is 2 seconds. Results Result Diagram: 01/06/17 0450 01/07/17 0455 STARR MISHRA MD Jan 09, 2017 08:01
--- NOTE | 2017-01-09 08:02 | PN ---
Date/Time of Note Date/Time of Note DATE: 01/09/17 TIME: 08:01 Assessment/Plan Lines/Catheters IV Catheter Type (from Nrs): Saline Lock Rahman in Place (from Nrs): No Assessment/Plan Chief Complaint/Hosp Course 1. Bilateral inguinal and buttock hidradenitis suppurativa s/p multiple I&Ds . Plastic input and follow up appreciated for outpatient eventual surgical intervention -antibiotics -wound care -off loading -nutrition optimization -vit c 2. Significant anemia, iron deficiency of unknown etiology. Stable. 3. Hypoalbuminemia is probably multifactorial; however, he will benefit from optimization of his nutrition. 4. Hypertension. Continue diet and medication control. 4. Diabetes. Continue diet and medication control. 5. Hypercholesterolemia. Continue diet and medication control. Thank you, Problems: Subjective 24 Hr Interval Summary Pain at the surgical sites. Denies f/c/cp/sob/cough/henry. No visual or neuro changes. No dysuria. Bowel function. No bloating. Exam/Review of Systems Vital Signs Vitals Vital Signs Date Time Temp Pulse Resp B/P Pulse Ox O2 Delivery O2 Flow Rate FiO2 01/08/17 19:45 97.7 86 18 106/54 93 Intake and Output 01/08/17 01/08/17 01/09/17 15:00 23:00 07:00 Intake Total 700 ml Output Total 730 ml Balance -30 ml Exam Free Text/Dictation GENERAL: No acute distress, comfortable, pleasant. HEENT: Pupils equal, reactive. No scleral icterus. Mucous membranes are moist. NECK: Supple, no JVD. PULMONARY: No respiratory distress with normal respiratory effort. No wheezing. CARDIAC: S1, S2 present. ABDOMEN: Soft, nontender. GENITOURINARY: Bilateral inguinal and partial scrotal wounds with packings and tenderness. SKIN: No rashes or jaundice; however hidradenitis bilateral inguinal and buttock wounds RECTAL: Not done. VASCULAR: Capillary refill is 2 seconds. Results Result Diagram: 01/06/17 0450 01/07/17 0455 STARR MISHRA MD Jan 09, 2017 08:02
[2017-01-09] MEDS: SODIUM HYPOCHLORITE 0.125% 473 ML BTL IRR SCH (09:00)
[2017-01-09] MEDS: ZYVOX 600 MG TAB PO SCH ×2 (10:05→21:55)
[2017-01-09] MEDS: GABAPENTIN 300 MG CAP PO SCH ×2 (10:05→21:54)
[2017-01-09] MEDS: metFORMIN 500 MG TAB PO SCH ×2 (10:05→17:28)
[2017-01-09] MEDS: FUROSEMIDE 20 MG INJ IV SCH (10:06)
[2017-01-09] MEDS: GEMFIBROZIL 600 MG TAB PO SCH ×2 (10:06→21:53)
[2017-01-09] MEDS: LISINOPRIL 5 MG TAB PO SCH (10:06)
[2017-01-09] MEDS: DICLOFENAC (EC) 75 MG TAB PO SCH ×3 (10:06→21:54)
[2017-01-09] MEDS: LUBIPROSTONE 24 MCG CAP PO SCH ×2 (10:06→21:00)
[2017-01-09] MEDS: ASPIRIN (EC) 81 MG TAB PO SCH (10:07)
[2017-01-09] MEDS: FERROUS SULFATE (EC) 325 MG TAB PO SCH ×2 (10:07→21:52)
[2017-01-09] MEDS: ENOXAPARIN 40 MG/0.4 ML SYG SC SCH (10:08)
[2017-01-09] MEDS: ONDANSETRON 4 MG INJ IV PRN (11:39)
[2017-01-09 11:45] VITALS: BP 96/54; PULSE 88
[2017-01-09] MEDS: ERTAPENEM SODIUM 1 GM in SOD CHLORIDE 0.9% 100 ML IVPB SCH (14:48)
--- NOTE | 2017-01-09 18:49 | PN ---
Date/Time of Note Date/Time of Note DATE: 01/09/17 TIME: 18:48 Assessment/Plan VTE Prophylaxis VTE Prophylaxis Intervention: other Lines/Catheters IV C[facility] Type (from [facility] Saline Lock Urinary Cath still in place: No Assessment/Plan Chief Complaint/Hosp Course IMPRESSION: 1. Patient has suppurativa hidradenitis recurrence.on antibiotic 2. Groin wound. s/p i and d 3. Patient has diabetes mellitus. 4. The patient has anemia. 5. The patient has elevated ESR. 6 LEG EDEMA on lasix better 7 polymicrobial sepsis plan wound care antibiotic per surgery snf soon LASIX Problems: Subjective 24 Hr Interval Summary Subjective hx not possible: other (waiting for snf) Cardiovascular: no complaints Gastrointestinal: no complaints Exam/Review of Systems Vital Signs Vitals Vital Signs Date Time Temp Pulse Resp B/P Pulse Ox O2 Delivery O2 Flow Rate FiO2 01/09/17 11:45 88 96/54 01/09/17 07:15 98.6 18 96 Intake and Output 01/08/17 01/08/17 01/09/17 15:00 23:00 07:00 Intake Total 700 ml Output Total 730 ml Balance -30 ml Exam Respiratory: clear to auscultation Cardiovascular: regular rate and rhythm Gastrointestinal: soft Musculoskeletal: nl extremities to inspection Extremities: normal pulses Skin: other (wound+) Results Result Diagram: 01/06/17 0450 01/07/17 0455 Results 24 hrs Laboratory Tests Test 01/08/17 21:09 01/09/17 07:56 01/09/17 10:04 01/09/17 11:43 Bedside Glucose 116 174 139 138 Test 01/09/17 17:14 Bedside Glucose 113 Medications Medications Current Medications Aspirin (Halfprin) 81 mg DAILY PO Last administered on 01/09/17 10:07; Admin Dose 81 MG; Start 01/01/17 at 09:00 Diclofenac Sodium (Voltaren) 75 mg TID PO Last administered on 01/09/17 14:49 ; Admin Dose 75 MG; Start 12/31/16 at 21:00 Ferrous Sulfate (Ferrous Sulfate (Ec)) 325 mg BID PO Last administered on 10:07; Admin Dose 325 MG; Start 12/31/16 at 21:00 Gabapentin (Neurontin) 300 mg BID PO Last administered on 01/09/17 10:05; Admin Dose 300 MG; Start 12/31/16 at 21:00 Gemfibrozil (Lopid) 600 mg BID PO Last administered on 01/09/17 10:06; Admin Dose 600 MG; Start 12/31/16 at 21:00 Lisinopril (Zestril) 5 mg DAILY PO Last administered on 01/09/17 10:06; Admin Dose 5 MG; Start 01/01/17 at 09:00 Ondansetron HCl (Zofran Inj) 4 mg Q6H PRN IV NAUSEA AND/OR VOMITING Last administered on 01/09/17 11:39; Admin Dose 4 MG; Start 12/31/16 at 18:00 Acetaminophen (Tylenol Tab) 650 mg Q6H PRN PO PAIN LEVEL 1-3 OR FEVER Last administered on 01/04/17 03:21; Admin Dose 650 MG; Start 12/31/16 at 18:00 Acetaminophen (Tylenol Supp) 650 mg Q6H PRN [place] PAIN LEVEL 1-3 OR FEVER; Start 12/31/16 at 18:00 Ibuprofen (Motrin) 600 mg Q6H PRN PO PAIN LEVEL 1-3; Start 12/31/16 at 18:00 Acetaminophen/ Hydrocodone Bitart ([place] (5/325)) 1 tab Q6H PRN PO MODERATE PAIN LEVEL 4-6; Start 12/31/16 at 18:00 Docusate Sodium (Colace) 100 mg Q12H PRN PO CONSTIPATION Last administered on 09:32; Admin Dose 100 MG; Start 12/31/16 at 18:00 Magnesium Hydroxide (Milk Of Mag) 30 ml DAILY PRN PO CONSTIPATION; Start at 18:00 Bisacodyl (Dulcolax) 5 mg DAILY PRN PO CONSTIPATION Last administered on 09:32; Admin Dose 5 MG; Start 12/31/16 at 18:00 Bisacodyl (Dulcolax Supp) 10 mg DAILY PRN [place] CONSTIPATION Last administered on 01/06/17 09:28; Admin Dose 10 MG; Start 12/31/16 at 18:00 Zolpidem Tartrate (Ambien) 5 mg QHS PRN PO SLEEP; Start 12/31/16 at 18:00 Enoxaparin Sodium (Lovenox) 40 mg DAILY SC Last administered on 01/09/17 10:08 ; Admin Dose 40 MG; Start 01/01/17 at 09:00 Morphine Sulfate (morphine) 2 mg Q2H PRN IV PAIN LEVEL 7-10 Last administered on 01/08/17 21:19; Admin Dose 2 MG; Start 12/31/16 at 18:30 Miscellaneous Information 1 ea NOTE XX ; Start 01/01/17 at 07:30 Glucose (Glutose) 15 gm Q15M PRN PO DECREASED GLUCOSE; Start 01/01/17 at 07:30 Glucose (Glutose) 22.5 gm Q15M PRN PO DECREASED GLUCOSE; Start 01/01/17 at 07: 30 Dextrose (D50w Syringe) 25 ml Q15M PRN IV DECREASED GLUCOSE; Start 01/01/17 at 07:30 Dextrose (D50w Syringe) 50 ml Q15M PRN IV DECREASED GLUCOSE; Start 01/01/17 at 07:30 Glucagon (Glucagen) 1 mg Q15M PRN IM DECREASED GLUCOSE; Start 01/01/17 at 07:30 Glucose (Glutose) 15 gm Q15M PRN BUCCAL DECREASED GLUCOSE; Start 01/01/17 at 07 :30 Lubiprostone (Amitiza) 24 mcg BID PO Last administered on 01/09/17 10:06; Admin Dose 24 MCG; Start 01/01/17 at 21:00 Pantoprazole 40 mg 40 mg DAILY@06 PO Last administered on 01/09/17 06:22; Admin Dose 40 MG; Start 01/03/17 at 06:00 Ertapenem/Sodium Chloride (Invanz/NS) 100 ml @ 200 mls/hr Q24H IVPB Last administered on 01/09/17 14:48; Admin Dose 200 MLS/HR; Start 01/03/17 at 15:00 Sodium Hypochlorite (Dakin'S (1/4 Strength)) 1 applic DAILY IRR Last administered on 01/09/17 09:00; Admin Dose 1 APPLIC; Start 01/04/17 at 13:30 Diagnostic Test (Pha) (Accu-Chek) 1 ea 02 XX ; Start 01/05/17 at 02:00 Linezolid (Zyvox) 600 mg BID PO Last administered on 01/09/17 10:05; Admin Dose 600 MG; Start 01/07/17 at 21:00 Furosemide (Lasix) 20 mg DAILY IV Last administered on 01/09/17t 10:06; Admin Dose 20 MG; Start 01/08/17 at 09:00; Stop 01/10/17 at 09:01 TAMARA SMITH MD Jan 09, 2017 18:49
[2017-01-09] MEDS: morphine 2 MG INJ IV PRN (19:35)
[2017-01-09 20:02] VITALS: BP 103/58; RESP 18
[2017-01-10] MEDS ORDERED: METHYLPREDNISOLONE 125 MG INJ IV STA (01:53)
[2017-01-10] MEDS ORDERED: LEVALBUTEROL (NEB) 0.31 MG/3 ML AMP HHN STA (01:53)
[2017-01-10] MEDS: ACCU-CHEK XX SCH (02:00)
[2017-01-10] MEDS: PANTOPRAZOLE (EC) 40 MG TAB PO SCH (05:16)
[2017-01-10 05:19] LABS: ADD SCAN DIFF NO
[2017-01-10 05:28] LABS: BASOPHILS % 0.3 % (0.0-2.0); EOSINOPHILS # 0.2 10^3/ul (0.0-0.5); EOSINOPHILS % 2.5 % (0.0-7.0); HEMATOCRIT 27.7 % (42.0-52.0); HEMOGLOBIN 8.3 g/dl (14.0-18.0); LYMPHOCYTES # 0.8 10^3/ul (0.8-2.9); LYMPHOCYTES % 10.4 % (15.0-51.0); MEAN CORPUSCULAR HEMOGLOBIN 24.7 pg (29.0-33.0); MEAN CORPUSCULAR VOLUME 82.4 fl (82.0-101.0); MEAN PLATELET VOLUME 9.7 fl (7.4-10.4); MONOCYTE # 0.3 10^3/ul (0.3-0.9); MONOCYTES % 4.2 % (0.0-11.0); NEUTROPHIL # 6.3 10^3/ul (1.6-7.5); NEUTROPHILS % 81.9 % (39.0-77.0); PLATELET COUNT 217 10^3/UL (140-415); RED BLOOD COUNT 3.36 10^6/ul (4.70-6.10); RED CELL DISTRIBUTION WIDTH 17.4 % (11.5-14.5); WHITE BLOOD COUNT 7.7 10^3/ul (4.8-10.8)
[2017-01-10 05:34] LABS: ALBUMIN 2.5 g/dl (3.3-4.9); ALBUMIN/GLOBULIN RATIO 0.59; CALCIUM 7.6 mg/dl (8.4-10.2); CREATININE 1.45 mg/dl (0.61-1.24); TOTAL PROTEIN 6.7 g/dl (6.1-8.1)
[2017-01-10 07:55] VITALS: BP 110/64; RESP 18
[2017-01-10] MEDS: INSULIN ASPART [NOVOLOG] 3 ML PEN SC SCH ×4 (08:00→20:19)
[2017-01-10] MEDS: GEMFIBROZIL 600 MG TAB PO SCH ×2 (08:59→20:28)
[2017-01-10] MEDS: SODIUM HYPOCHLORITE 0.125% 473 ML BTL IRR SCH (09:00)
[2017-01-10] MEDS: DICLOFENAC (EC) 75 MG TAB PO SCH ×3 (09:00→20:29)
[2017-01-10] MEDS: ZYVOX 600 MG TAB PO SCH ×2 (09:00→20:28)
[2017-01-10] MEDS: ASPIRIN (EC) 81 MG TAB PO SCH (09:00)
[2017-01-10] MEDS: FERROUS SULFATE (EC) 325 MG TAB PO SCH ×2 (09:01→20:29)
[2017-01-10] MEDS: metFORMIN 500 MG TAB PO SCH ×2 (09:01→17:33)
[2017-01-10] MEDS: LUBIPROSTONE 24 MCG CAP PO SCH ×2 (09:01→20:29)
[2017-01-10] MEDS: GABAPENTIN 300 MG CAP PO SCH ×2 (09:01→20:28)
[2017-01-10] MEDS: FUROSEMIDE 20 MG INJ IV SCH (09:02)
[2017-01-10] MEDS: LISINOPRIL 5 MG TAB PO SCH (09:02)
[2017-01-10] MEDS: ENOXAPARIN 40 MG/0.4 ML SYG SC SCH (09:24)
--- NOTE | 2017-01-10 13:41 | PN ---
Date/Time of Note Date/Time of Note DATE: 01/10/17 TIME: 13:37 Assessment/Plan VTE Prophylaxis VTE Prophylaxis Intervention: ambulation Lines/Catheters IV C[facility]ter Type (from [facility]): Saline Lock Urinary Cath still in place: No Assessment/Plan Chief Complaint/Hosp Course 1. groin wounds 2. htn 3. dm Problems: Assessment/Plan 1. Discharge pending. only requests [place]. Talk to nurses to accommodate transfer Subjective 24 Hr Interval Summary Constitutional: improved, no complaints Eyes: no complaints ENT: no complaints Musculoskeletal: other (pain discharge), restricted range of motion (hips) Skin: rash Neurologic: no complaints Exam/Review of Systems Vital Signs Vitals Vital Signs Date Time Temp Pulse Resp B/P Pulse Ox O2 Delivery O2 Flow Rate FiO2 01/10/17 07:55 98.8 76 18 110/64 98 Intake and Output 01/09/17 01/09/17 01/10/17 15:00 23:00 07:00 Intake Total 360 ml 100 ml 720 ml Output Total 450 ml 400 ml 600 ml Balance -90 ml -300 ml 120 ml Exam Constitutional: alert, oriented, well developed Psych: no complaints Eyes: nl conjunctiva ENMT: nl external ears & nose Respiratory: clear to auscultation Cardiovascular: regular rate and rhythm Gastrointestinal: soft Genitourinary - Male: nl penis, nl scrotum Results Result Diagram: 01/10/17 0455 01/10/17 0455 Results 24 hrs Laboratory Tests Test 01/09/17 17:14 01/09/17 20:58 01/10/17 04:55 01/10/17 08:06 Bedside Glucose 113 111 99 White Blood Count 7.7 Red Blood Count 3.36 L Hemoglobin 8.3 L Hematocrit 27.7 L Mean Corpuscular Volume 82.4 Mean Corpuscular Hemoglobin 24.7 L Mean Corpuscular Hemoglobin Concent 30.0 L Red Cell Distribution Width 17.4 H Platelet Count 217 Mean Platelet Volume 9.7 Neutrophils % 81.9 H Lymphocytes % 10.4 L Monocytes % 4.2 Eosinophils % 2.5 Basophils % 0.3 Nucleated Red Blood Cells % 0.0 Neutrophils # 6.3 Lymphocytes # 0.8 Monocytes # 0.3 Eosinophils # 0.2 Basophils # 0.0 Nucleated Red Blood Cells # 0.0 Sodium Level 138 Potassium Level 4.0 Chloride Level 107 Carbon Dioxide Level 26 Anion Gap 9 Blood Urea Nitrogen 24 H Creatinine 1.45 H Glucose Level 96 Calcium Level 7.6 L Total Bilirubin 0.0 L Direct Bilirubin 0.00 Indirect Bilirubin 0.0 Aspartate Amino Transf (AST/SGOT) 10 L Alanine Aminotransferase (ALT/SGPT) 21 Alkaline Phosphatase 83 Total Protein 6.7 Albumin 2.5 L Globulin 4.20 H Albumin/Globulin Ratio 0.59 Test 01/10/17 11:49 Bedside Glucose 187 Medications Medications Current Medications Aspirin (Halfprin) 81 mg DAILY PO Last administered on 01/10/17 09:00; Admin Dose 81 MG; Start 01/01/17 at 09:00 Diclofenac Sodium (Voltaren) 75 mg TID PO Last administered on 01/10/17 09:00 ; Admin Dose 75 MG; Start 12/31/16 at 21:00 Ferrous Sulfate (Ferrous Sulfate (Ec)) 325 mg BID PO Last administered on 09:01; Admin Dose 325 MG; Start 12/31/16 at 21:00 Gabapentin (Neurontin) 300 mg BID PO Last administered on 01/10/17 09:01; Admin Dose 300 MG; Start 12/31/16 at 21:00 Gemfibrozil (Lopid) 600 mg BID PO Last administered on 01/10/17 08:59; Admin Dose 600 MG; Start 12/31/16 at 21:00 Lisinopril (Zestril) 5 mg DAILY PO Last administered on 01/10/17 09:02; Admin Dose 5 MG; Start 01/01/17 at 09:00 Ondansetron HCl (Zofran Inj) 4 mg Q6H PRN IV NAUSEA AND/OR VOMITING Last administered on 01/09/17 11:39; Admin Dose 4 MG; Start 12/31/16 at 18:00 Acetaminophen (Tylenol Tab) 650 mg Q6H PRN PO PAIN LEVEL 1-3 OR FEVER Last administered on 01/04/17 03:21; Admin Dose 650 MG; Start 12/31/16 at 18:00 Acetaminophen (Tylenol Supp) 650 mg Q6H PRN [place] PAIN LEVEL 1-3 OR FEVER; Start 12/31/16 at 18:00 Ibuprofen (Motrin) 600 mg Q6H PRN PO PAIN LEVEL 1-3; Start 12/31/16 at 18:00 Acetaminophen/ Hydrocodone Bitart ([place] (5/325)) 1 tab Q6H PRN PO MODERATE PAIN LEVEL 4-6; Start 12/31/16 at 18:00 Docusate Sodium (Colace) 100 mg Q12H PRN PO CONSTIPATION Last administered on 09:32; Admin Dose 100 MG; Start 12/31/16 at 18:00 Magnesium Hydroxide (Milk Of Mag) 30 ml DAILY PRN PO CONSTIPATION; Start at 18:00 Bisacodyl (Dulcolax) 5 mg DAILY PRN PO CONSTIPATION Last administered on 09:32; Admin Dose 5 MG; Start 12/31/16 at 18:00 Bisacodyl (Dulcolax Supp) 10 mg DAILY PRN [place] CONSTIPATION Last administered on 01/06/17 09:28; Admin Dose 10 MG; Start 12/31/16 at 18:00 Zolpidem Tartrate (Ambien) 5 mg QHS PRN PO SLEEP; Start 12/31/16 at 18:00 Enoxaparin Sodium (Lovenox) 40 mg DAILY SC Last administered on 01/10/17 09:24 ; Admin Dose 40 MG; Start 01/01/17 at 09:00 Morphine Sulfate (morphine) 2 mg Q2H PRN IV PAIN LEVEL 7-10 Last administered on 01/09/17 19:35; Admin Dose 2 MG; Start 12/31/16 at 18:30 Miscellaneous Information 1 ea NOTE XX ; Start 01/01/17 at 07:30 Glucose (Glutose) 15 gm Q15M PRN PO DECREASED GLUCOSE; Start 01/01/17 at 07:30 Glucose (Glutose) 22.5 gm Q15M PRN PO DECREASED GLUCOSE; Start 01/01/17 at 07: 30 Dextrose (D50w Syringe) 25 ml Q15M PRN IV DECREASED GLUCOSE; Start 01/01/17 at 07:30 Dextrose (D50w Syringe) 50 ml Q15M PRN IV DECREASED GLUCOSE; Start 01/01/17 at 07:30 Glucagon (Glucagen) 1 mg Q15M PRN IM DECREASED GLUCOSE; Start 01/01/17 at 07:30 Glucose (Glutose) 15 gm Q15M PRN BUCCAL DECREASED GLUCOSE; Start 01/01/17 at 07 :30 Lubiprostone (Amitiza) 24 mcg BID PO Last administered on 01/10/17 09:01; Admin Dose 24 MCG; Start 01/01/17 at 21:00 Pantoprazole 40 mg 40 mg DAILY@06 PO Last administered on 01/10/17 05:16; Admin Dose 40 MG; Start 01/03/17 at 06:00 Ertapenem/Sodium Chloride (Invanz/NS) 100 ml @ 200 mls/hr Q24H IVPB Last administered on 01/09/17 14:48; Admin Dose 200 MLS/HR; Start 01/03/17 at 15:00 Sodium Hypochlorite (Dakin'S (09/18 Strength)) 1 applic DAILY IRR Last administered on 01/09/17 09:00; Admin Dose 1 APPLIC; Start 01/04/17 at 13:30 Diagnostic Test (Pha) (Accu-Chek) 1 ea 02 XX ; Start 01/05/17 at 02:00 Linezolid (Zyvox) 600 mg BID PO Last administered on 01/10/17 09:00; Admin Dose 600 MG; Start 01/07/17 at 21:00 JESSICA MILLS Jan 10, 2017 13:40
[2017-01-10] MEDS: ERTAPENEM SODIUM 1 GM in SOD CHLORIDE 0.9% 100 ML IVPB SCH (15:44)
[2017-01-10] MEDS: morphine 2 MG INJ IV PRN (20:02)
--- NOTE | 2017-01-10 21:09 | CONS ---
Date/Time of Note Date/Time of Note DATE: 01/10/17 TIME: 21:07 Assessment/Plan Assessment/Plan Chief Complaint/Hosp Course ID PROGRESS NOTE CURRENT ABX => Zyvox #4 + Ertapenem #7 Vanco IV -> DC 01/07 24H INTERVAL SUMMARY * POD # 4 -> S/p Right Groin Wound debridement 01/03/17 * Calm, VSS, no fevers, flat affect, appears depressed, limited Czech -- doing "OK" leg edema improved * Patient remains in hospital for IV ABX and wound packing * Plastic surgery consult completed 01/07 with recommendation to clear the infection prior to OP follow up for wide excision of surgical areas. * A/A/O -- No new issues, no c/o, No fevers, pain is controlled, spends most of the resting in bed, NAD, PLT 198 on Zyvox PHYSICAL EXAMINATION: GENERAL: VSS, NAD, Afebrile, 62 yo M HEENT: Unremarkable NECK: Supple CHEST: Rise symmetrical, without dyspnea on observation HEART: Pulse RRR ABDOMEN: Soft EXTREMITIES: Warm, groin dsg c/d/i ID ASSESSMENT 61 yo M admit with: 1. SIRS w/low grade Tmax 99.8, ESR 91 due to recurrent R-groin infected wound * POD # -> S/p Right Groin Wound debridement 01/03/17 * 01/03/17 WOUND CXOUND CULTURE Final Organism 1 PROTEUS MIRABILIS Organism 2 VANCO RESISTANT ENTEROCOCCUS 2. Hx of bilateral groin hidradenitis suppurativa -> Hx of prior wound debridement 3. DM Type 2, Diabetic Peripheral Neuropathy 4. HTN 5. HLD 6. Hx of Anemia requiring PRBC Tx 7. Chronic pain issues 8. Limited mobility w/ decubitus ulcers, ( -)MRSA Nares INVASIVES: PIV, ABX ALLERGY: PCN CURRENT ABX: Zyvox #4 + Ertapenem #7 ID RECOMMENDATIONS 1. Zyvox for VRE coverage & Continue Ertapenem per hx of PCN allergy 2. Patient remains in hospital for IV ABX and wound packing 3. PLAN: Plastic surgery consult completed 01/07 with recommendation to clear the infection prior to OP follow up for wide excision of surgical areas. . . . Problems: Consultation Date/Type/Reason Admit Date/Time Dec 31, 2016 at 18:07 Initial Consult Date 12/31/16 Type of Consultation: ID Referring Provider: TAMARA SMITH MD Exam/Review of Systems Vital Signs Vitals Vital Signs Date Time Temp Pulse Resp B/P Pulse Ox O2 Delivery O2 Flow Rate FiO2 01/10/17 07:55 98.8 76 18 110/64 98 Intake and Output 01/09/17 01/09/17 01/10/17 15:00 23:00 07:00 Intake Total 360 ml 100 ml 720 ml Output Total 450 ml 400 ml 600 ml Balance -90 ml -300 ml 120 ml Results Result Diagram: 01/10/17 0455 01/10/17 0455 Results 24 hrs Laboratory Tests Test 01/10/17 04:55 01/10/17 08:06 01/10/17 11:49 01/10/17 16:53 White Blood Count 7.7 Red Blood Count 3.36 L Hemoglobin 8.3 L Hematocrit 27.7 L Mean Corpuscular Volume 82.4 Mean Corpuscular Hemoglobin 24.7 L Mean Corpuscular Hemoglobin Concent 30.0 L Red Cell Distribution Width 17.4 H Platelet Count 217 Mean Platelet Volume 9.7 Neutrophils % 81.9 H Lymphocytes % 10.4 L Monocytes % 4.2 Eosinophils % 2.5 Basophils % 0.3 Nucleated Red Blood Cells % 0.0 Neutrophils # 6.3 Lymphocytes # 0.8 Monocytes # 0.3 Eosinophils # 0.2 Basophils # 0.0 Nucleated Red Blood Cells # 0.0 Sodium Level 138 Potassium Level 4.0 Chloride Level 107 Carbon Dioxide Level 26 Anion Gap 9 Blood Urea Nitrogen 24 H Creatinine 1.45 H Glucose Level 96 Calcium Level 7.6 L Total Bilirubin 0.0 L Direct Bilirubin 0.00 Indirect Bilirubin 0.0 Aspartate Amino Transf (AST/SGOT) 10 L Alanine Aminotransferase (ALT/SGPT) 21 Alkaline Phosphatase 83 Total Protein 6.7 Albumin 2.5 L Globulin 4.20 H Albumin/Globulin Ratio 0.59 Bedside Glucose 99 187 120 Test 01/10/17 20:17 Bedside Glucose 114 Medications Medications Current Medications Aspirin (Halfprin) 81 mg DAILY PO Last administered on 01/10/17 09:00; Admin Dose 81 MG; Start 01/01/17 at 09:00 Diclofenac Sodium (Voltaren) 75 mg TID PO Last administered on 01/10/17 20:29 ; Admin Dose 75 MG; Start 12/31/16 at 21:00 Ferrous Sulfate (Ferrous Sulfate (Ec)) 325 mg BID PO Last administered on 20:29; Admin Dose 325 MG; Start 12/31/16 at 21:00 Gabapentin (Neurontin) 300 mg BID PO Last administered on 01/10/17 20:28; Admin Dose 300 MG; Start 12/31/16 at 21:00 Gemfibrozil (Lopid) 600 mg BID PO Last administered on 01/10/17 20:28; Admin Dose 600 MG; Start 12/31/16 at 21:00 Lisinopril (Zestril) 5 mg DAILY PO Last administered on 01/10/17 09:02; Admin Dose 5 MG; Start 01/01/17 at 09:00 Ondansetron HCl (Zofran Inj) 4 mg Q6H PRN IV NAUSEA AND/OR VOMITING Last administered on 01/09/17 11:39; Admin Dose 4 MG; Start 12/31/16 at 18:00 Acetaminophen (Tylenol Tab) 650 mg Q6H PRN PO PAIN LEVEL 1-3 OR FEVER Last administered on 01/04/17 03:21; Admin Dose 650 MG; Start 12/31/16 at 18:00 Acetaminophen (Tylenol Supp) 650 mg Q6H PRN [place] PAIN LEVEL 1-3 OR FEVER; Start 12/31/16 at 18:00 Ibuprofen (Motrin) 600 mg Q6H PRN PO PAIN LEVEL 1-3; Start 12/31/16 at 18:00 Acetaminophen/ Hydrocodone Bitart ([place] (5/325)) 1 tab Q6H PRN PO MODERATE PAIN LEVEL 4-6; Start 12/31/16 at 18:00 Docusate Sodium (Colace) 100 mg Q12H PRN PO CONSTIPATION Last administered on 09:32; Admin Dose 100 MG; Start 12/31/16 at 18:00 Magnesium Hydroxide (Milk Of Mag) 30 ml DAILY PRN PO CONSTIPATION; Start at 18:00 Bisacodyl (Dulcolax) 5 mg DAILY PRN PO CONSTIPATION Last administered on 09:32; Admin Dose 5 MG; Start 12/31/16 at 18:00 Bisacodyl (Dulcolax Supp) 10 mg DAILY PRN [place] CONSTIPATION Last administered on 01/06/17 09:28; Admin Dose 10 MG; Start 12/31/16 at 18:00 Zolpidem Tartrate (Ambien) 5 mg QHS PRN PO SLEEP; Start 12/31/16 at 18:00 Enoxaparin Sodium (Lovenox) 40 mg DAILY SC Last administered on 01/10/17 09:24 ; Admin Dose 40 MG; Start 01/01/17 at 09:00 Morphine Sulfate (morphine) 2 mg Q2H PRN IV PAIN LEVEL 7-10 Last administered on 01/10/17 20:02; Admin Dose 2 MG; Start 12/31/16 at 18:30 Miscellaneous Information 1 ea NOTE XX ; Start 01/01/17 at 07:30 Glucose (Glutose) 15 gm Q15M PRN PO DECREASED GLUCOSE; Start 01/01/17 at 07:30 Glucose (Glutose) 22.5 gm Q15M PRN PO DECREASED GLUCOSE; Start 01/01/17 at 07: 30 Dextrose (D50w Syringe) 25 ml Q15M PRN IV DECREASED GLUCOSE; Start 01/01/17 at 07:30 Dextrose (D50w Syringe) 50 ml Q15M PRN IV DECREASED GLUCOSE; Start 01/01/17 at 07:30 Glucagon (Glucagen) 1 mg Q15M PRN IM DECREASED GLUCOSE; Start 01/01/17 at 07:30 Glucose (Glutose) 15 gm Q15M PRN BUCCAL DECREASED GLUCOSE; Start 01/01/17 at 07 :30 Lubiprostone (Amitiza) 24 mcg BID PO Last administered on 01/10/17 20:29; Admin Dose 24 MCG; Start 01/01/17 at 21:00 Pantoprazole 40 mg 40 mg DAILY@06 PO Last administered on 01/10/17 05:16; Admin Dose 40 MG; Start 01/03/17 at 06:00 Ertapenem/Sodium Chloride (Invanz/NS) 100 ml @ 200 mls/hr Q24H IVPB Last administered on 01/10/17 15:44; Admin Dose 200 MLS/HR; Start 01/03/17 at 15:00 Sodium Hypochlorite (Dakin'S (1/4 Strength)) 1 applic DAILY IRR Last administered on 01/09/17 09:00; Admin Dose 1 APPLIC; Start 01/04/17 at 13:30 Diagnostic Test (Pha) (Accu-Chek) 1 XX ; Start 01/05/17 at 02:00 Linezolid (Zyvox) 600 mg BID PO Last administered on 01/10/17 20:28; Admin Dose 600 MG; Start 01/07/17 at 21:00 MICHAEL HAIDER NP Jan 10, 2017 21:09
[2017-01-10 21:23] VITALS: BP 99/54; RESP 18
[2017-01-11] MEDS ORDERED: SOD CHLORIDE 0.9% 500 ML IV ONE
[2017-01-11] MEDS: ACCU-CHEK XX SCH ×2 (00:17→20:22)
[2017-01-11] MEDS: PANTOPRAZOLE (EC) 40 MG TAB PO SCH (05:49)
[2017-01-11 05:57] LABS: ADD SCAN DIFF NO
[2017-01-11 06:10] LABS: BASOPHILS % 0.2 % (0.0-2.0); EOSINOPHILS # 0.2 10^3/ul (0.0-0.5); EOSINOPHILS % 2.1 % (0.0-7.0); HEMATOCRIT 26.9 % (42.0-52.0); HEMOGLOBIN 8.2 g/dl (14.0-18.0); LYMPHOCYTES # 0.9 10^3/ul (0.8-2.9); LYMPHOCYTES % 10.3 % (15.0-51.0); MEAN CORPUSCULAR HEMOGLOBIN 25.1 pg (29.0-33.0); MEAN CORPUSCULAR HGB CONC 30.5 g/dl (32.0-37.0); MEAN CORPUSCULAR VOLUME 82.3 fl (82.0-101.0); MEAN PLATELET VOLUME 9.8 fl (7.4-10.4); MONOCYTE # 0.4 10^3/ul (0.3-0.9); MONOCYTES % 4.5 % (0.0-11.0); NEUTROPHIL # 7.3 10^3/ul (1.6-7.5); NEUTROPHILS % 82.4 % (39.0-77.0); PLATELET COUNT 250 10^3/UL (140-415); RED BLOOD COUNT 3.27 10^6/ul (4.70-6.10); RED CELL DISTRIBUTION WIDTH 17.3 % (11.5-14.5); WHITE BLOOD COUNT 8.9 10^3/ul (4.8-10.8)
[2017-01-11 06:30] LABS: CREATININE 1.17 mg/dl (0.61-1.24)
[2017-01-11 06:31] LABS: CALCIUM 7.8 mg/dl (8.4-10.2)
[2017-01-11 07:35] VITALS: BP 107/57; RESP 20
[2017-01-11] MEDS: INSULIN ASPART [NOVOLOG] 3 ML PEN SC SCH ×4 (08:00→20:22)
[2017-01-11] MEDS: ENOXAPARIN 40 MG/0.4 ML SYG SC SCH (08:46)
[2017-01-11] MEDS: GEMFIBROZIL 600 MG TAB PO SCH ×2 (08:47→20:21)
[2017-01-11] MEDS: LUBIPROSTONE 24 MCG CAP PO SCH ×2 (08:48→20:21)
[2017-01-11] MEDS: ZYVOX 600 MG TAB PO SCH ×2 (08:48→20:21)
[2017-01-11] MEDS: ASPIRIN (EC) 81 MG TAB PO SCH (08:48)
[2017-01-11] MEDS: FERROUS SULFATE (EC) 325 MG TAB PO SCH ×2 (08:48→20:21)
[2017-01-11] MEDS: DICLOFENAC (EC) 75 MG TAB PO SCH ×3 (08:48→20:22)
[2017-01-11] MEDS: GABAPENTIN 300 MG CAP PO SCH ×2 (08:48→20:22)
[2017-01-11] MEDS: LISINOPRIL 5 MG TAB PO SCH (08:49)
[2017-01-11] MEDS: metFORMIN 500 MG TAB PO SCH ×2 (08:51→17:45)
[2017-01-11] MEDS: SODIUM HYPOCHLORITE 0.125% 473 ML BTL IRR SCH (08:51)
--- NOTE | 2017-01-11 14:06 | PN ---
Date/Time of Note Date/Time of Note DATE: 01/11/17 TIME: 14:04 Assessment/Plan VTE Prophylaxis VTE Prophylaxis Intervention: ambulation Lines/Catheters IV [facility] Type ([facility] [place] Urinary Cath still in place: No Assessment/Plan Chief Complaint/Hosp Course 1. groin wounds 2. htn 3. dm Problems: Assessment/Plan 1. Discharge pending Subjective 24 Hr Interval Summary Constitutional: no complaints Gastrointestinal: no complaints Genitourinary: no complaints Musculoskeletal: no complaints Skin: no complaints Neurologic: no complaints Exam/Review of Systems Vital Signs Vitals Vital Signs Date Time Temp Pulse Resp B/P Pulse Ox O2 Delivery O2 Flow Rate FiO2 01/11/17 07:35 98.4 79 20 107/57 96 Intake and Output 01/10/17 01/10/17 01/11/17 15:00 23:00 07:00 Intake Total 920 ml 760 ml Output Total 750 ml 1200 ml Balance 170 ml -440 ml Exam Constitutional: alert, oriented Neck: supple Respiratory: clear to auscultation Cardiovascular: regular rate and rhythm Results Result Diagram: 01/11/17 0516 01/11/17 0516 Results 24 hrs Laboratory Tests Test 01/10/17 16:53 01/10/17 20:17 01/11/17 05:16 01/11/17 08:03 Bedside Glucose 120 114 117 White Blood Count 8.9 Red Blood Count 3.27 L Hemoglobin 8.2 L Hematocrit 26.9 L Mean Corpuscular Volume 82.3 Mean Corpuscular Hemoglobin 25.1 L Mean Corpuscular Hemoglobin Concent 30.5 L Red Cell Distribution Width 17.3 H Platelet Count 250 Mean Platelet Volume 9.8 Neutrophils % 82.4 H Lymphocytes % 10.3 L Monocytes % 4.5 Eosinophils % 2.1 Basophils % 0.2 Nucleated Red Blood Cells % 0.0 Neutrophils # 7.3 Lymphocytes # 0.9 Monocytes # 0.4 Eosinophils # 0.2 Basophils # 0.0 Nucleated Red Blood Cells # 0.0 Sodium Level 140 Potassium Level 4.0 Chloride Level 105 Carbon Dioxide Level 28 Anion Gap 11 Blood Urea Nitrogen 27 H Creatinine 1.17 Glucose Level 104 Calcium Level 7.8 L Test 01/11/17 11:53 Bedside Glucose 312 H Medications Medications Current Medications Aspirin (Halfprin) 81 mg DAILY PO Last administered on 01/11/17t 08:48; Admin Dose 81 MG; Start 01/01/17 at 09:00 Diclofenac Sodium (Voltaren) 75 mg TID PO Last administered on 01/11/17 08:48 ; Admin Dose 75 MG; Start 12/31/16 at 21:00 Ferrous Sulfate (Ferrous Sulfate (Ec)) 325 mg BID PO Last administered on 08:48; Admin Dose 325 MG; Start 12/31/16 at 21:00 Gabapentin (Neurontin) 300 mg BID PO Last administered on 01/11/17 08:48; Admin Dose 300 MG; Start 12/31/16 at 21:00 Gemfibrozil (Lopid) 600 mg BID PO Last administered on 01/11/17 08:47; Admin Dose 600 MG; Start 12/31/16 at 21:00 Lisinopril (Zestril) 5 mg DAILY PO Last administered on 01/10/17 09:02; Admin Dose 5 MG; Start 01/01/17 at 09:00 Ondansetron HCl (Zofran Inj) 4 mg Q6H PRN IV NAUSEA AND/OR VOMITING Last administered on 01/09/17 11:39; Admin Dose 4 MG; Start 12/31/16 at 18:00 Acetaminophen (Tylenol Tab) 650 mg Q6H PRN PO PAIN LEVEL 1-3 OR FEVER Last administered on 01/04/17 03:21; Admin Dose 650 MG; Start 12/31/16 at 18:00 Acetaminophen (Tylenol Supp) 650 mg Q6H PRN RI PAIN LEVEL 1-3 OR FEVER; Start 12/31/16 at 18:00 Ibuprofen (Motrin) 600 mg Q6H PRN PO PAIN LEVEL 1-3; Start 12/31/16 at 18:00 Acetaminophen/ Hydrocodone Bitart ([place] (5/325)) 1 tab Q6H PRN PO MODERATE PAIN LEVEL 4-6; Start 12/31/16 at 18:00 Docusate Sodium (Colace) 100 mg Q12H PRN PO CONSTIPATION Last administered on 09:32; Admin Dose 100 MG; Start 12/31/16 at 18:00 Magnesium Hydroxide (Milk Of Mag) 30 ml DAILY PRN PO CONSTIPATION; Start at 18:00 Bisacodyl (Dulcolax) 5 mg DAILY PRN PO CONSTIPATION Last administered on 09:32; Admin Dose 5 MG; Start 12/31/16 at 18:00 Bisacodyl (Dulcolax Supp) 10 mg DAILY PRN [place] CONSTIPATION Last administered on 01/06/17 09:28; Admin Dose 10 MG; Start 12/31/16 at 18:00 Zolpidem Tartrate (Ambien) 5 mg QHS PRN PO SLEEP; Start 12/31/16 at 18:00 Enoxaparin Sodium (Lovenox) 40 mg DAILY SC Last administered on 01/11/17 08:46 ; Admin Dose 40 MG; Start 01/01/17 at 09:00 Morphine Sulfate (morphine) 2 mg Q2H PRN IV PAIN LEVEL 7-10 Last administered on 01/10/17 20:02; Admin Dose 2 MG; Start 12/31/16 at 18:30 Miscellaneous Information 1 ea NOTE XX ; Start 01/01/17 at 07:30 Glucose (Glutose) 15 gm Q15M PRN PO DECREASED GLUCOSE; Start 01/01/17 at 07:30 Glucose (Glutose) 22.5 gm Q15M PRN PO DECREASED GLUCOSE; Start 01/01/17 at 07: 30 Dextrose (D50w Syringe) 25 ml Q15M PRN IV DECREASED GLUCOSE; Start 01/01/17 at 07:30 Dextrose (D50w Syringe) 50 ml Q15M PRN IV DECREASED GLUCOSE; Start 01/01/17 at 07:30 Glucagon (Glucagen) 1 mg Q15M PRN IM DECREASED GLUCOSE; Start 01/01/17 at 07:30 Glucose (Glutose) 15 gm Q15M PRN BUCCAL DECREASED GLUCOSE; Start 01/01/17 at 07 :30 Lubiprostone (Amitiza) 24 mcg BID PO Last administered on 01/11/17 08:48; Admin Dose 24 MCG; Start 01/01/17 at 21:00 Pantoprazole 40 mg 40 mg DAILY@06 PO Last administered on 01/11/17 05:49; Admin Dose 40 MG; Start 01/03/17 at 06:00 Ertapenem/Sodium Chloride (Invanz/NS) 100 ml @ 200 mls/hr Q24H IVPB Last administered on 01/10/17 15:44; Admin Dose 200 MLS/HR; Start 01/03/17 at 15:00 Sodium Hypochlorite (Dakin'S (09/18 Strength)) 1 applic DAILY IRR Last administered on 01/09/17 09:00; Admin Dose 1 APPLIC; Start 01/04/17 at 13:30 Diagnostic Test (Pha) (Accu-Chek) 1 ea 02 XX ; Start 01/05/17 at 02:00 Linezolid (Zyvox) 600 mg BID PO Last administered on 01/11/17 08:48; Admin Dose 600 MG; Start 01/07/17 at 21:00 JESSICA MILLS Jan 11, 2017 14:06
[2017-01-11] MEDS: ERTAPENEM SODIUM 1 GM in SOD CHLORIDE 0.9% 100 ML IVPB SCH (17:44)
--- NOTE | 2017-01-11 17:51 | PN ---
Date/Time of Note Date/Time of Note DATE: 01/11/17 TIME: 17:51 Assessment/Plan Lines/Catheters IV [facility] Type (from [facility] Peripheral IV Rahman in Place (from Nrs): No Assessment/Plan Chief Complaint/Hosp Course 1. Bilateral inguinal and buttock hidradenitis suppurativa s/p multiple I&Ds . Plastic input and follow up appreciated for outpatient eventual surgical intervention -antibiotics -wound care -off loading -nutrition optimization -vit c 2. Significant anemia, iron deficiency of unknown etiology. Stable. 3. Hypoalbuminemia is probably multifactorial; however, he will benefit from optimization of his nutrition. 4. Hypertension. Continue diet and medication control. 4. Diabetes. Continue diet and medication control. 5. Hypercholesterolemia. Continue diet and medication control. Thank you, Problems: Subjective 24 Hr Interval Summary Pain at the surgical sites improving. Denies f/c/cp/sob/cough/henry. No visual or neuro changes. No dysuria. Bowel function. No bloating. Exam/Review of Systems Vital Signs Vitals Vital Signs Date Time Temp Pulse Resp B/P Pulse Ox O2 Delivery O2 Flow Rate FiO2 01/11/17 07:35 98.4 79 20 107/57 96 Intake and Output 01/10/17 01/10/17 01/11/17 15:00 23:00 07:00 Intake Total 920 ml 760 ml Output Total 750 ml 1200 ml Balance 170 ml -440 ml Exam Free Text/Dictation GENERAL: No acute distress, comfortable, pleasant. HEENT: Pupils equal, reactive. No scleral icterus. Mucous membranes are moist. NECK: Supple, no JVD. PULMONARY: No respiratory distress with normal respiratory effort. No wheezing. CARDIAC: S1, S2 present. ABDOMEN: Soft, nontender. GENITOURINARY: Bilateral inguinal and partial scrotal wounds with packings and tenderness. SKIN: No rashes or jaundice; however hidradenitis bilateral inguinal and buttock wounds RECTAL: Not done. VASCULAR: Capillary refill is 2 seconds. Results Result Diagram: 01/11/17 0516 01/11/17 0516 STARR MISHRA MD Jan 11, 2017 17:51
--- NOTE | 2017-01-11 17:51 | PN ---
Date/Time of Note Date/Time of Note DATE: 01/10/17 TIME: 17:49 Assessment/Plan Lines/Catheters IV Catheter Type (from Nrs): Peripheral IV Rhaman in Place (from Nrs): No Assessment/Plan Chief Complaint/Hosp Course 1. Bilateral inguinal and buttock hidradenitis suppurativa s/p multiple I&Ds . Plastic input and follow up appreciated for outpatient eventual surgical intervention -antibiotics -wound care -off loading -nutrition optimization -vit c 2. Significant anemia, iron deficiency of unknown etiology. Stable. 3. Hypoalbuminemia is probably multifactorial; however, he will benefit from optimization of his nutrition. 4. Hypertension. Continue diet and medication control. 4. Diabetes. Continue diet and medication control. 5. Hypercholesterolemia. Continue diet and medication control. Thank you, Late entry 01/10 Problems: Subjective 24 Hr Interval Summary Pain at the surgical sites. Denies f/c/cp/sob/cough/henry. No visual or neuro changes. No dysuria. Bowel function. No bloating. Exam/Review of Systems Vital Signs Vitals Vital Signs Date Time Temp Pulse Resp B/P Pulse Ox O2 Delivery O2 Flow Rate FiO2 01/11/17 07:35 98.4 79 20 107/57 96 Intake and Output 01/10/17 01/10/17 01/11/17 15:00 23:00 07:00 Intake Total 920 ml 760 ml Output Total 750 ml 1200 ml Balance 170 ml -440 ml Exam Free Text/Dictation GENERAL: No acute distress, comfortable, pleasant. HEENT: Pupils equal, reactive. No scleral icterus. Mucous membranes are moist. NECK: Supple, no JVD. PULMONARY: No respiratory distress with normal respiratory effort. No wheezing. CARDIAC: S1, S2 present. ABDOMEN: Soft, nontender. GENITOURINARY: Bilateral inguinal and partial scrotal wounds with packings and tenderness. SKIN: No rashes or jaundice; however hidradenitis bilateral inguinal and buttock wounds RECTAL: Not done. VASCULAR: Capillary refill is 2 seconds. Results Result Diagram: 01/11/17 0516 01/11/17 0516 STARR MISHRA MD Jan 11, 2017 17:51
[2017-01-11 20:22] VITALS: BP 116/60; RESP 20
--- NOTE | 2017-01-11 23:17 | CONS ---
Date/Time of Note Date/Time of Note DATE: 01/11/17 TIME: 23:16 Assessment/Plan Assessment/Plan Chief Complaint/Hosp Course ID PROGRESS NOTE CURRENT ABX => Zyvox #5 + Ertapenem #8 Vanco IV -> DC 01/07 24H INTERVAL SUMMARY * POD # 01/03/17 -> S/p Right Groin Wound debridement 01/03/17 * Sleeping, no new issue, no c/o -- Chart reviewed, case d/w nursing staff, wound packing continues * Plastic surgery consult completed 01/07 with recommendation to clear the infection prior to OP follow up for wide excision of surgical areas. PHYSICAL EXAMINATION: GENERAL: VSS, NAD, Afebrile, 62 yo M HEENT: Unremarkable NECK: Supple CHEST: Rise symmetrical, without dyspnea on observation HEART: Pulse RRR ABDOMEN: Soft EXTREMITIES: Warm, groin dsg c/d/i ID ASSESSMENT 61 yo M admit with: 1. SIRS w/low grade Tmax 99.8, ESR 91 due to recurrent R-groin infected wound * POD # -> S/p Right Groin Wound debridement 01/03/17 * 01/03/17 WOUND CXOUND CULTURE Final Organism 1 PROTEUS MIRABILIS Organism 2 VANCO RESISTANT ENTEROCOCCUS 2. Hx of bilateral groin hidradenitis suppurativa -> Hx of prior wound debridement 3. DM Type 2, Diabetic Peripheral Neuropathy 4. HTN 5. HLD 6. Hx of Anemia requiring PRBC Tx 7. Chronic pain issues 8. Limited mobility w/ decubitus ulcers, ( -)MRSA Nares INVASIVES: PIV, ABX ALLERGY: PCN CURRENT ABX: Zyvox #5 + Ertapenem #8 ID RECOMMENDATIONS 1. Zyvox for VRE coverage & Continue Ertapenem per hx of PCN allergy 2. Patient remains in hospital for IV ABX and wound packing 3. PLAN: Plastic surgery consult completed 01/07 with recommendation to clear the infection prior to OP follow up for wide excision of surgical areas. . . . Problems: Consultation Date/Type/Reason Admit Date/Time Dec 31, 2016 at 18:07 Initial Consult Date 12/31/16 Type of Consultation: ID Referring Provider: TAMARA SMITH MD Exam/Review of Systems Vital Signs Vitals Vital Signs Date Time Temp Pulse Resp B/P Pulse Ox O2 Delivery O2 Flow Rate FiO2 01/11/17 20:22 97.9 71 20 116/60 97 Intake and Output 01/10/17 01/10/17 01/11/17 15:00 23:00 07:00 Intake Total 920 ml 760 ml Output Total 750 ml 1200 ml Balance 170 ml -440 ml Results Result Diagram: 01/11/17 0516 01/11/17 0516 Results 24 hrs Laboratory Tests Test 01/11/17 05:16 01/11/17 08:03 01/11/17 11:53 01/11/17 17:15 White Blood Count 8.9 Red Blood Count 3.27 L Hemoglobin 8.2 L Hematocrit 26.9 L Mean Corpuscular Volume 82.3 Mean Corpuscular Hemoglobin 25.1 L Mean Corpuscular Hemoglobin Concent 30.5 L Red Cell Distribution Width 17.3 H Platelet Count 250 Mean Platelet Volume 9.8 Neutrophils % 82.4 H Lymphocytes % 10.3 L Monocytes % 4.5 Eosinophils % 2.1 Basophils % 0.2 Nucleated Red Blood Cells % 0.0 Neutrophils # 7.3 Lymphocytes # 0.9 Monocytes # 0.4 Eosinophils # 0.2 Basophils # 0.0 Nucleated Red Blood Cells # 0.0 Sodium Level 140 Potassium Level 4.0 Chloride Level 105 Carbon Dioxide Level 28 Anion Gap 11 Blood Urea Nitrogen 27 H Creatinine 1.17 Glucose Level 104 Calcium Level 7.8 L Bedside Glucose 117 312 H 97 Test 01/11/17 20:20 Bedside Glucose 119 Medications Medications Current Medications Aspirin (Halfprin) 81 mg DAILY PO Last administered on 01/11/17 08:48; Admin Dose 81 MG; Start 01/01/17 at 09:00 Diclofenac Sodium (Voltaren) 75 mg TID PO Last administered on 01/11/17 20:22 ; Admin Dose 75 MG; Start 12/31/16 at 21:00 Ferrous Sulfate (Ferrous Sulfate (Ec)) 325 mg BID PO Last administered on 20:21; Admin Dose 325 MG; Start 12/31/16 at 21:00 Gabapentin (Neurontin) 300 mg BID PO Last administered on 01/11/17 20:22; Admin Dose 300 MG; Start 12/31/16 at 21:00 Gemfibrozil (Lopid) 600 mg BID PO Last administered on 01/11/17 20:21; Admin Dose 600 MG; Start 12/31/16 at 21:00 Lisinopril (Zestril) 5 mg DAILY PO Last administered on 01/10/17 09:02; Admin Dose 5 MG; Start 01/01/17 at 09:00 Ondansetron HCl (Zofran Inj) 4 mg Q6H PRN IV NAUSEA AND/OR VOMITING Last administered on 01/09/17 11:39; Admin Dose 4 MG; Start 12/31/16 at 18:00 Acetaminophen (Tylenol Tab) 650 mg Q6H PRN PO PAIN LEVEL 1-3 OR FEVER Last administered on 01/04/17 03:21; Admin Dose 650 MG; Start 12/31/16 at 18:00 Acetaminophen (Tylenol Supp) 650 mg Q6H PRN RI PAIN LEVEL 1-3 OR FEVER; Start 12/31/16 at 18:00 Ibuprofen (Motrin) 600 mg Q6H PRN PO PAIN LEVEL 1-3; Start 12/31/16 at 18:00 Acetaminophen/ Hydrocodone Bitart ([place] (5/325)) 1 tab Q6H PRN PO MODERATE PAIN LEVEL 4-6; Start 12/31/16 at 18:00 Docusate Sodium (Colace) 100 mg Q12H PRN PO CONSTIPATION Last administered on 09:32; Admin Dose 100 MG; Start 12/31/16 at 18:00 Magnesium Hydroxide (Milk Of Mag) 30 ml DAILY PRN PO CONSTIPATION; Start at 18:00 Bisacodyl (Dulcolax) 5 mg DAILY PRN PO CONSTIPATION Last administered on 09:32; Admin Dose 5 MG; Start 12/31/16 at 18:00 Bisacodyl (Dulcolax Supp) 10 mg DAILY PRN RI CONSTIPATION Last administered on 01/06/17 09:28; Admin Dose 10 MG; Start 12/31/16 at 18:00 Zolpidem Tartrate (Ambien) 5 mg QHS PRN PO SLEEP; Start 12/31/16 at 18:00 Enoxaparin Sodium (Lovenox) 40 mg DAILY SC Last administered on 01/11/17 08:46 ; Admin Dose 40 MG; Start 01/01/17 at 09:00 Morphine Sulfate (morphine) 2 mg Q2H PRN IV PAIN LEVEL 7-10 Last administered on 01/10/17 20:02; Admin Dose 2 MG; Start 12/31/16 at 18:30 Miscellaneous Information 1 ea NOTE XX ; Start 01/01/17 at 07:30 Glucose (Glutose) 15 gm Q15M PRN PO DECREASED GLUCOSE; Start 01/01/17 at 07:30 Glucose (Glutose) 22.5 gm Q15M PRN PO DECREASED GLUCOSE; Start 01/01/17 at 07: 30 Dextrose (D50w Syringe) 25 ml Q15M PRN IV DECREASED GLUCOSE; Start 01/01/17 at 07:30 Dextrose (D50w Syringe) 50 ml Q15M PRN IV DECREASED GLUCOSE; Start 01/01/17 at 07:30 Glucagon (Glucagen) 1 mg Q15M PRN IM DECREASED GLUCOSE; Start 01/01/17 at 07:30 Glucose (Glutose) 15 gm Q15M PRN BUCCAL DECREASED GLUCOSE; Start 01/01/17 at 07 :30 Lubiprostone (Amitiza) 24 mcg BID PO Last administered on 01/11/17 20:21; Admin Dose 24 MCG; Start 01/01/17 at 21:00 Pantoprazole 40 mg 40 mg DAILY@06 PO Last administered on 01/11/17 05:49; Admin Dose 40 MG; Start 01/03/17 at 06:00 Ertapenem/Sodium Chloride (Invanz/NS) 100 ml @ 200 mls/hr Q24H IVPB Last administered on 01/11/17 17:44; Admin Dose 200 MLS/HR; Start 01/03/17 at 15:00 Sodium Hypochlorite (Dakin'S (1/4 Strength)) 1 applic DAILY IRR Last administered on 01/09/17 09:00; Admin Dose 1 APPLIC; Start 01/04/17 at 13:30 Diagnostic Test (Pha) (Accu-Chek) 1 ea 02 XX ; Start 01/05/17 at 02:00 Linezolid (Zyvox) 600 mg BID PO Last administered on 01/11/17 20:21; Admin Dose 600 MG; Start 01/07/17 at 21:00 MICHAEL HAIDER NP Jan 11, 2017 23:17
[2017-01-12] MEDS: PANTOPRAZOLE (EC) 40 MG TAB PO SCH (05:56)
[2017-01-12] MEDS: INSULIN ASPART [NOVOLOG] 3 ML PEN SC SCH ×4 (08:00→21:00)
[2017-01-12] MEDS: metFORMIN 500 MG TAB PO SCH ×2 (08:17→17:34)
[2017-01-12 08:39] VITALS: BP 120/68; RESP 18
[2017-01-12] MEDS: ENOXAPARIN 40 MG/0.4 ML SYG SC SCH (09:00)
[2017-01-12] MEDS: LISINOPRIL 5 MG TAB PO SCH (09:43)
[2017-01-12] MEDS: ZYVOX 600 MG TAB PO SCH ×2 (09:43→21:17)
[2017-01-12] MEDS: GABAPENTIN 300 MG CAP PO SCH ×2 (09:43→21:17)
[2017-01-12] MEDS: ASPIRIN (EC) 81 MG TAB PO SCH (09:43)
[2017-01-12] MEDS: DICLOFENAC (EC) 75 MG TAB PO SCH ×3 (09:44→21:17)
[2017-01-12] MEDS: FERROUS SULFATE (EC) 325 MG TAB PO SCH ×2 (09:44→21:17)
[2017-01-12] MEDS: LUBIPROSTONE 24 MCG CAP PO SCH ×2 (09:44→21:17)
[2017-01-12] MEDS: GEMFIBROZIL 600 MG TAB PO SCH ×2 (09:44→21:17)
[2017-01-12] MEDS: SODIUM HYPOCHLORITE 0.125% 473 ML BTL IRR SCH (09:47)
--- NOTE | 2017-01-12 16:55 | CONS ---
Date/Time of Note Date/Time of Note DATE: 01/12/17 TIME: 16:53 Assessment/Plan Assessment/Plan Chief Complaint/Hosp Course ID PROGRESS NOTE CURRENT ABX => Zyvox #6 + Ertapenem #9 Vanco IV -> DC 01/07 POD # 01/03/17 -> S/p Right Groin Wound debridement 01/03/17 24H INTERVAL SUMMARY * Patient is sleeping, has been lethargic all weak, his wounds are packed daily and does not want them disturbed, wound changes are painful. No F/C/N/V, no other complaints. * Plastic surgery consult completed 01/07 with recommendation to clear the infection prior to OP follow up for wide excision of surgical areas. PHYSICAL EXAMINATION: GENERAL: VSS, NAD, Afebrile, 62 yo M HEENT: Unremarkable NECK: Supple CHEST: Rise symmetrical, without dyspnea on observation HEART: Pulse RRR ABDOMEN: Soft EXTREMITIES: Warm, groin dsg c/d/i ID ASSESSMENT 61 yo M admit with: 1. SIRS w/low grade Tmax 99.8, ESR 91 due to recurrent R-groin infected wound * POD # -> S/p Right Groin Wound debridement 01/03/17 * 01/03/17 WOUND CXOUND CULTURE Final Organism 1 PROTEUS MIRABILIS Organism 2 VANCO RESISTANT ENTEROCOCCUS 2. Hx of bilateral groin hidradenitis suppurativa -> Hx of prior wound debridement 3. DM Type 2, Diabetic Peripheral Neuropathy 4. HTN 5. HLD 6. Hx of Anemia requiring PRBC Tx 7. Chronic pain issues 8. Limited mobility w/ decubitus ulcers, ( -)MRSA Nares INVASIVES: PIV, ABX ALLERGY: PCN CURRENT ABX: > Zyvox #6 + Ertapenem #9 ID RECOMMENDATIONS 1. Zyvox for VRE coverage & Continue Ertapenem per hx of PCN allergy 2. Patient remains in hospital for IV ABX and wound packing 3. PLAN: Plastic surgery consult completed 01/07 with recommendation to clear the infection prior to OP follow up for wide excision of surgical areas. . . . Problems: Consultation Date/Type/Reason Admit Date/Time Dec 31, 2016 at 18:07 Initial Consult Date 12/31/16 Type of Consultation: ID Referring Provider: TAMARA SMITH MD Exam/Review of Systems Vital Signs Vitals Vital Signs Date Time Temp Pulse Resp B/P Pulse Ox O2 Delivery O2 Flow Rate FiO2 01/12/17 08:39 98.4 70 18 120/68 96 Intake and Output 01/11/17 01/11/17 01/12/17 15:00 23:00 07:00 Intake Total 1450 ml 500 ml Output Total 1050 ml 1100 ml Balance 400 ml -600 ml Results Result Diagram: 01/11/17 0516 01/11/17 0516 Results 24 hrs Laboratory Tests Test 01/11/17 17:15 01/11/17 20:20 01/12/17 08:17 01/12/17 12:41 Bedside Glucose 97 119 140 99 Medications Medications Current Medications Aspirin (Halfprin) 81 mg DAILY PO Last administered on 01/12/17 09:43; Admin Dose 81 MG; Start 01/01/17 at 09:00 Diclofenac Sodium (Voltaren) 75 mg TID PO Last administered on 01/12/17 12:46 ; Admin Dose 75 MG; Start 12/31/16 at 21:00 Ferrous Sulfate (Ferrous Sulfate (Ec)) 325 mg BID PO Last administered on 09:44; Admin Dose 325 MG; Start 12/31/16 at 21:00 Gabapentin (Neurontin) 300 mg BID PO Last administered on 01/12/17 09:43; Admin Dose 300 MG; Start 12/31/16 at 21:00 Gemfibrozil (Lopid) 600 mg BID PO Last administered on 01/12/17 09:44; Admin Dose 600 MG; Start 12/31/16 at 21:00 Lisinopril (Zestril) 5 mg DAILY PO Last administered on 01/12/17 09:43; Admin Dose 5 MG; Start 01/01/17 at 09:00 Ondansetron HCl (Zofran Inj) 4 mg Q6H PRN IV NAUSEA AND/OR VOMITING Last administered on 01/09/17 11:39; Admin Dose 4 MG; Start 12/31/16 at 18:00 Acetaminophen (Tylenol Tab) 650 mg Q6H PRN PO PAIN LEVEL 1-3 OR FEVER Last administered on 01/04/17 03:21; Admin Dose 650 MG; Start 12/31/16 at 18:00 Acetaminophen (Tylenol Supp) 650 mg Q6H PRN [place] PAIN LEVEL 1-3 OR FEVER; Start 12/31/16 at 18:00 Ibuprofen (Motrin) 600 mg Q6H PRN PO PAIN LEVEL 1-3; Start 12/31/16 at 18:00 Acetaminophen/ Hydrocodone Bitart ([place] (5/325)) 1 tab Q6H PRN PO MODERATE PAIN LEVEL 4-6; Start 12/31/16 at 18:00 Docusate Sodium (Colace) 100 mg Q12H PRN PO CONSTIPATION Last administered on 09:32; Admin Dose 100 MG; Start 12/31/16 at 18:00 Magnesium Hydroxide (Milk Of Mag) 30 ml DAILY PRN PO CONSTIPATION; Start at 18:00 Bisacodyl (Dulcolax) 5 mg DAILY PRN PO CONSTIPATION Last administered on 09:32; Admin Dose 5 MG; Start 12/31/16 at 18:00 Bisacodyl (Dulcolax Supp) 10 mg DAILY PRN [place] CONSTIPATION Last administered on 01/06/17 09:28; Admin Dose 10 MG; Start 12/31/16 at 18:00 Zolpidem Tartrate (Ambien) 5 mg QHS PRN PO SLEEP; Start 12/31/16 at 18:00 Enoxaparin Sodium (Lovenox) 40 mg DAILY SC Last administered on 01/11/17 08:46 ; Admin Dose 40 MG; Start 01/01/17 at 09:00 Morphine Sulfate (morphine) 2 mg Q2H PRN IV PAIN LEVEL 7-10 Last administered on 01/10/17 20:02; Admin Dose 2 MG; Start 12/31/16 at 18:30 Miscellaneous Information 1 ea NOTE XX ; Start 01/01/17 at 07:30 Glucose (Glutose) 15 gm Q15M PRN PO DECREASED GLUCOSE; Start 01/01/17 at 07:30 Glucose (Glutose) 22.5 gm Q15M PRN PO DECREASED GLUCOSE; Start 01/01/17 at 07: 30 Dextrose (D50w Syringe) 25 ml Q15M PRN IV DECREASED GLUCOSE; Start 01/01/17 at 07:30 Dextrose (D50w Syringe) 50 ml Q15M PRN IV DECREASED GLUCOSE; Start 01/01/17 at 07:30 Glucagon (Glucagen) 1 mg Q15M PRN IM DECREASED GLUCOSE; Start 01/01/17 at 07:30 Glucose (Glutose) 15 gm Q15M PRN BUCCAL DECREASED GLUCOSE; Start 01/01/17 at 07 :30 Lubiprostone (Amitiza) 24 mcg BID PO Last administered on 01/12/17 09:44; Admin Dose 24 MCG; Start 01/01/17 at 21:00 Pantoprazole 40 mg 40 mg DAILY@06 PO Last administered on 01/12/17 05:56; Admin Dose 40 MG; Start 01/03/17 at 06:00 Ertapenem/Sodium Chloride (Invanz/NS) 100 ml @ 200 mls/hr Q24H IVPB Last administered on 01/11/17 17:44; Admin Dose 200 MLS/HR; Start 01/03/17 at 15:00 Sodium Hypochlorite (Dakin'S (1/4 Strength)) 1 applic DAILY IRR Last administered on 01/12/17 09:47; Admin Dose 1 APPLIC; Start 01/04/17 at 13:30 Diagnostic Test (Pha) (Accu-Chek) 1 ea 02 XX ; Start 01/05/17 at 02:00 Linezolid (Zyvox) 600 mg BID PO Last administered on 01/12/17 09:43; Admin Dose 600 MG; Start 01/07/17 at 21:00 MICHAEL HAIDER NP Jan 12, 2017 16:55
[2017-01-12] MEDS: ERTAPENEM SODIUM 1 GM in SOD CHLORIDE 0.9% 100 ML IVPB SCH (18:18)
--- NOTE | 2017-01-12 18:36 | PN ---
Date/Time of Note Date/Time of Note DATE: 01/12/17 TIME: 18:36 Assessment/Plan VTE Prophylaxis VTE Prophylaxis Intervention: other Lines/Catheters IV [facility] Type (from [facility]): Peripheral IV Urinary Cath still in place: No Assessment/Plan Chief Complaint/Hosp Course IMPRESSION: 1. Patient has suppurativa hidradenitis recurrence.on antibiotic 2. Groin wound. s/p i and d 3. Patient has diabetes mellitus. 4. The patient has anemia. 5. The patient has elevated ESR. 6 LEG EDEMA on lasix better 7 polymicrobial sepsis plan wound care antibiotic per surgery snf soon Problems: Subjective 24 Hr Interval Summary Cardiovascular: no complaints Gastrointestinal: no complaints Exam/Review of Systems Vital Signs Vitals Vital Signs Date Time Temp Pulse Resp B/P Pulse Ox O2 Delivery O2 Flow Rate FiO2 01/12/17 08:39 98.4 70 18 120/68 96 Intake and Output 01/11/17 01/11/17 01/12/17 15:00 23:00 07:00 Intake Total 1450 ml 500 ml Output Total 1050 ml 1100 ml Balance 400 ml -600 ml Exam Respiratory: clear to auscultation Cardiovascular: regular rate and rhythm Gastrointestinal: soft Musculoskeletal: nl extremities to inspection Extremities: normal pulses Results Result Diagram: 01/11/17 0516 01/11/17 0516 Results 24 hrs Laboratory Tests Test 01/11/17 20:20 01/12/17 08:17 01/12/17 12:41 01/12/17 17:33 Bedside Glucose 119 140 99 130 Medications Medications Current Medications Aspirin (Halfprin) 81 mg DAILY PO Last administered on 01/12/17 09:43; Admin Dose 81 MG; Start 01/01/17 at 09:00 Diclofenac Sodium (Voltaren) 75 mg TID PO Last administered on 01/12/17 12:46 ; Admin Dose 75 MG; Start 12/31/16 at 21:00 Ferrous Sulfate (Ferrous Sulfate (Ec)) 325 mg BID PO Last administered on 09:44; Admin Dose 325 MG; Start 12/31/16 at 21:00 Gabapentin (Neurontin) 300 mg BID PO Last administered on 01/12/17 09:43; Admin Dose 300 MG; Start 12/31/16 at 21:00 Gemfibrozil (Lopid) 600 mg BID PO Last administered on 01/12/17 09:44; Admin Dose 600 MG; Start 12/31/16 at 21:00 Lisinopril (Zestril) 5 mg DAILY PO Last administered on 01/12/17 09:43; Admin Dose 5 MG; Start 01/01/17 at 09:00 Ondansetron HCl (Zofran Inj) 4 mg Q6H PRN IV NAUSEA AND/OR VOMITING Last administered on 01/09/17 11:39; Admin Dose 4 MG; Start 12/31/16 at 18:00 Acetaminophen (Tylenol Tab) 650 mg Q6H PRN PO PAIN LEVEL 1-3 OR FEVER Last administered on 01/04/17 03:21; Admin Dose 650 MG; Start 12/31/16 at 18:00 Acetaminophen (Tylenol Supp) 650 mg Q6H PRN [place] PAIN LEVEL 1-3 OR FEVER; Start 12/31/16 at 18:00 Ibuprofen (Motrin) 600 mg Q6H PRN PO PAIN LEVEL 1-3; Start 12/31/16 at 18:00 Acetaminophen/ Hydrocodone Bitart ([place] (5/325)) 1 tab Q6H PRN PO MODERATE PAIN LEVEL 4-6; Start 12/31/16 at 18:00 Docusate Sodium (Colace) 100 mg Q12H PRN PO CONSTIPATION Last administered on 09:32; Admin Dose 100 MG; Start 12/31/16 at 18:00 Magnesium Hydroxide (Milk Of Mag) 30 ml DAILY PRN PO CONSTIPATION; Start at 18:00 Bisacodyl (Dulcolax) 5 mg DAILY PRN PO CONSTIPATION Last administered on 09:32; Admin Dose 5 MG; Start 12/31/16 at 18:00 Bisacodyl (Dulcolax Supp) 10 mg DAILY PRN [place] CONSTIPATION Last administered on 01/06/17 09:28; Admin Dose 10 MG; Start 12/31/16 at 18:00 Zolpidem Tartrate (Ambien) 5 mg QHS PRN PO SLEEP; Start 12/31/16 at 18:00 Enoxaparin Sodium (Lovenox) 40 mg DAILY SC Last administered on 01/11/17 08:46 ; Admin Dose 40 MG; Start 01/01/17 at 09:00 Morphine Sulfate (morphine) 2 mg Q2H PRN IV PAIN LEVEL 7-10 Last administered on 01/10/17 20:02; Admin Dose 2 MG; Start 12/31/16 at 18:30 Miscellaneous Information 1 ea NOTE XX ; Start 01/01/17 at 07:30 Glucose (Glutose) 15 gm Q15M PRN PO DECREASED GLUCOSE; Start 01/01/17 at 07:30 Glucose (Glutose) 22.5 gm Q15M PRN PO DECREASED GLUCOSE; Start 01/01/17 at 07: 30 Dextrose (D50w Syringe) 25 ml Q15M PRN IV DECREASED GLUCOSE; Start 01/01/17 at 07:30 Dextrose (D50w Syringe) 50 ml Q15M PRN IV DECREASED GLUCOSE; Start 01/01/17 at 07:30 Glucagon (Glucagen) 1 mg Q15M PRN IM DECREASED GLUCOSE; Start 01/01/17 at 07:30 Glucose (Glutose) 15 gm Q15M PRN BUCCAL DECREASED GLUCOSE; Start 01/01/17 at 07 :30 Lubiprostone (Amitiza) 24 mcg BID PO Last administered on 01/12/17 09:44; Admin Dose 24 MCG; Start 01/01/17 at 21:00 Pantoprazole 40 mg 40 mg DAILY@06 PO Last administered on 01/12/17 05:56; Admin Dose 40 MG; Start 01/03/17 at 06:00 Ertapenem/Sodium Chloride (Invanz/NS) 100 ml @ 200 mls/hr Q24H IVPB Last administered on 01/12/17 18:18; Admin Dose 200 MLS/HR; Start 01/03/17 at 15:00 Sodium Hypochlorite (Dakin'S (1/4 Strength)) 1 applic DAILY IRR Last administered on 01/12/17 09:47; Admin Dose 1 APPLIC; Start 01/04/17 at 13:30 Diagnostic Test (Pha) (Accu-Chek) 1 ea 02 XX ; Start 01/05/17 at 02:00 Linezolid (Zyvox) 600 mg BID PO Last administered on 01/12/17 09:43; Admin Dose 600 MG; Start 01/07/17 at 21:00 TAMARA SMITH MD Jan 12, 2017 18:36
[2017-01-12 20:49] VITALS: BP 113/63; RESP 18
[2017-01-12] MEDS: ACCU-CHEK XX SCH (21:17)
[2017-01-12] MEDS: morphine 2 MG INJ IV PRN (23:01)
[2017-01-13] MEDS: PANTOPRAZOLE (EC) 40 MG TAB PO SCH (05:37)
[2017-01-13 07:30] VITALS: BP 105/57; RESP 20
[2017-01-13] MEDS: INSULIN ASPART [NOVOLOG] 3 ML PEN SC SCH ×4 (07:46→21:00)
[2017-01-13] MEDS: GABAPENTIN 300 MG CAP PO SCH ×2 (08:58→22:27)
[2017-01-13] MEDS: LISINOPRIL 5 MG TAB PO SCH (08:58)
[2017-01-13] MEDS: FERROUS SULFATE (EC) 325 MG TAB PO SCH ×2 (08:58→22:27)
[2017-01-13] MEDS: ZYVOX 600 MG TAB PO SCH ×2 (08:58→22:27)
[2017-01-13] MEDS: GEMFIBROZIL 600 MG TAB PO SCH ×2 (08:58→22:38)
[2017-01-13] MEDS: metFORMIN 500 MG TAB PO SCH ×2 (08:58→17:59)
[2017-01-13] MEDS: LUBIPROSTONE 24 MCG CAP PO SCH ×2 (08:58→22:29)
[2017-01-13] MEDS: ASPIRIN (EC) 81 MG TAB PO SCH (08:58)
[2017-01-13] MEDS: DICLOFENAC (EC) 75 MG TAB PO SCH ×4 (08:59→22:27)
[2017-01-13] MEDS: SODIUM HYPOCHLORITE 0.125% 473 ML BTL IRR SCH ×2 (09:00→16:03)
[2017-01-13] MEDS: ENOXAPARIN 40 MG/0.4 ML SYG SC SCH (09:01)
--- NOTE | 2017-01-13 11:39 | PN ---
Date/Time of Note Date/Time of Note DATE: 01/13/17 TIME: 11:39 Assessment/Plan Lines/Catheters IV Catheter Type (from Nrs): Saline Lock Rahman in Place (from Nrs): No Assessment/Plan Chief Complaint/Hosp Course 1. Bilateral inguinal and buttock hidradenitis suppurativa s/p multiple I&Ds . Plastic input and follow up appreciated for outpatient eventual surgical intervention -antibiotics -wound care -off loading -nutrition optimization -vit c -dc planning ok from surgical standpoint > defer to medical team 2. Significant anemia, iron deficiency of unknown etiology. Stable. 3. Hypoalbuminemia is probably multifactorial; however, he will benefit from optimization of his nutrition. 4. Hypertension. Continue diet and medication control. 4. Diabetes. Continue diet and medication control. 5. Hypercholesterolemia. Continue diet and medication control. Thank you, Late entry 01/12 Problems: Subjective 24 Hr Interval Summary Pain at the surgical sites improving. Denies f/c/cp/sob/cough/henry. No visual or neuro changes. No dysuria. Bowel function. No bloating. Exam/Review of Systems Vital Signs Vitals Vital Signs Date Time Temp Pulse Resp B/P Pulse Ox O2 Delivery O2 Flow Rate FiO2 01/13/17 07:30 98.0 71 20 105/57 97 Intake and Output 01/12/17 01/12/17 01/13/17 14:59 22:59 06:59 Intake Total 970 ml 480 ml Output Total 900 ml Balance 970 ml -420 ml Exam Free Text/Dictation GENERAL: No acute distress, comfortable, pleasant. HEENT: Pupils equal, reactive. No scleral icterus. Mucous membranes are moist. NECK: Supple, no JVD. PULMONARY: No respiratory distress with normal respiratory effort. No wheezing. CARDIAC: S1, S2 present. ABDOMEN: Soft, nontender. GENITOURINARY: Bilateral inguinal and partial scrotal wounds with packings and tenderness. SKIN: No rashes or jaundice; however hidradenitis bilateral inguinal and buttock wounds RECTAL: Not done. VASCULAR: Capillary refill is 2 seconds. Results Result Diagram: 01/11/17 0516 01/11/17 0516 STARR MISHRA MD January 13, 2017 11:39
[2017-01-13] MEDS: ERTAPENEM SODIUM 1 GM in SOD CHLORIDE 0.9% 100 ML IVPB SCH (15:06)
--- NOTE | 2017-01-13 16:21 | PN ---
DATE: 01/13/2017 SUBJECTIVE: No acute changes overnight. The patient is lying comfortably in bed. Afebrile. No la bs this morning. MICROBIOLOGY: Wound culture grew E. coli, Proteus mirabilis and VRE. ANTIMICROBIALS: 1. He is on Zyvox. 2. Invanz. PHYSICAL EXAMINATION: GENERAL: Well-developed elderly man who is awake, in no distress. HEENT: Head atraumatic, normocephalic. Sclerae anicteric. Buccal mucosa dry. NECK: Supple. CHEST: Rise symmetrical. Breath sounds clear. HEART: S1, S2. ABDOMEN: Soft. Bowel tones present. EXTREMITIES: No cyanosis. ASSESSMENT: 1. Bilateral inguinal and hidradenitis suppurativa status post multiple incision and drainage with culture growing multi-drug resistant organisms. 2. Diabetes. 3. Hypertension. PLAN: The patient remains stable. Surgery on case. He is on appropriate antimicrobials. Continue local wound care. Dictated By: EZIO LUEVANO AMMUNITION STOREKEEPER for ANGELA FAY/MAURIZIO Conf#: [id number] DID#: [id number]
--- NOTE | 2017-01-13 17:15 | PDOCDIS ---
Discharge Instructions CONDITION Patient Condition: Stable HOME CARE INSTRUCTIONS: Special Diet: Carb Controlled Diet ACTIVITY: Activity Restrictions: Slowly Increase Activity FOLLOW UP/APPOINTMENTS Appointments f/u own pcp 1 wk f/u wound care clinic and out pt plastic surgery by referral by pcp and TAMARA Lee MD January 13, 2017 17:15
[2017-01-13] MEDS ORDERED: DOCU-216 PO (17:19)
[2017-01-13] MEDS ORDERED: SODI473S16 IRR (17:19)
[2017-01-13] MEDS ORDERED: BISA5TAB6 PO (17:19)
[2017-01-13] MEDS ORDERED: LINE600T6 PO (17:19)
[2017-01-13] MEDS ORDERED: Accu-Chek XX (17:19)
[2017-01-13] MEDS ORDERED: ENOX40DI12 SC (17:19)
[2017-01-13] MEDS ORDERED: HYDR-3498 PO (17:19)
--- NOTE | 2017-01-13 17:28 | PN ---
Date/Time of Note Date/Time of Note DATE: 01/13/17 TIME: 17:25 Assessment/Plan VTE Prophylaxis VTE Prophylaxis Intervention: other Lines/Catheters [facility] Saline Lock Urinary Cath still in place: No Reason Cath still needed: other (indicate) Assessment/Plan Chief Complaint/Hosp Course IMPRESSION: 1. Patient has suppurativa hidradenitis recurrence.on antibiotic 2. Groin wound. s/p i and d 3. Patient has diabetes mellitus. 4. The patient has anemia. 5. The patient has elevated ESR. 6 LEG EDEMA on lasix better 7 polymicrobial sepsis plan wound care antibiotic per surgery home pt and family refused snf invanz and zyvox Problems: Subjective 24 Hr Interval Summary Gastrointestinal: no complaints Genitourinary: no complaints Skin: skin lesions (better) Exam/Review of Systems Vital Signs Vitals Vital Signs Date Time Temp Pulse Resp B/P Pulse Ox O2 Delivery O2 Flow Rate FiO2 01/13/17 07:30 98.0 71 20 105/57 97 Intake and Output 01/12/17 01/12/17 01/13/17 15:00 23:00 07:00 Intake Total 970 ml 480 ml Output Total 900 ml Balance 970 ml -420 ml Exam Respiratory: clear to auscultation Cardiovascular: regular rate and rhythm Gastrointestinal: soft Musculoskeletal: nl extremities to inspection Extremities: normal pulses Neurological: MEDICAL ADMINISTRATIVE TECHNICIAN II-XII intact Results Result Diagram: 01/11/17 0516 01/11/17 0516 Results 24 hrs Laboratory Tests Test 01/12/17 17:33 01/12/17 21:15 01/13/17 07:41 01/13/17 12:02 Bedside Glucose 130 113 94 158 Medications Medications Current Medications Aspirin (Halfprin) 81 mg DAILY PO Last administered on 01/13/17 08:58; Admin Dose 81 MG; Start 01/01/17 at 09:00 Diclofenac Sodium (Voltaren) 75 mg TID PO Last administered on 01/13/17 15:06; Admin Dose 75 MG; Start 12/31/16 at 21:00 Ferrous Sulfate (Ferrous Sulfate (Ec)) 325 mg BID PO Last administered on 08:58; Admin Dose 325 MG; Start 12/31/16 at 21:00 Gabapentin (Neurontin) 300 mg BID PO Last administered on 01/13/17 08:58; Admin Dose 300 MG; Start 12/31/16 at 21:00 Gemfibrozil (Lopid) 600 mg BID PO Last administered on 01/13/17 08:58; Admin Dose 600 MG; Start 12/31/16 at 21:00 Lisinopril (Zestril) 5 mg DAILY PO Last administered on 01/13/17 08:58; Admin Dose 5 MG; Start 01/01/17 at 09:00 Ondansetron HCl (Zofran Inj) 4 mg Q6H PRN IV NAUSEA AND/OR VOMITING Last administered on 01/09/17 11:39; Admin Dose 4 MG; Start 12/31/16 at 18:00 Acetaminophen (Tylenol Tab) 650 mg Q6H PRN PO PAIN LEVEL 1-3 OR FEVER Last administered on 01/04/17 03:21; Admin Dose 650 MG; Start 12/31/16 at 18:00 Acetaminophen (Tylenol Supp) 650 mg Q6H PRN [place] PAIN LEVEL 1-3 OR FEVER; Start 12/31/16 at 18:00 Ibuprofen (Motrin) 600 mg Q6H PRN PO PAIN LEVEL 1-3; Start 12/31/16 at 18:00 Acetaminophen/ Hydrocodone Bitart ([place] (5/325)) 1 tab Q6H PRN PO MODERATE PAIN LEVEL 4-6; Start 12/31/16 at 18:00 Docusate Sodium (Colace) 100 mg Q12H PRN PO CONSTIPATION Last administered on 09:32; Admin Dose 100 MG; Start 12/31/16 at 18:00 Magnesium Hydroxide (Milk Of Mag) 30 ml DAILY PRN PO CONSTIPATION; Start at 18:00 Bisacodyl (Dulcolax) 5 mg DAILY PRN PO CONSTIPATION Last administered on 09:32; Admin Dose 5 MG; Start 12/31/16 at 18:00 Bisacodyl (Dulcolax Supp) 10 mg DAILY PRN [place] CONSTIPATION Last administered on 01/06/17 09:28; Admin Dose 10 MG; Start 12/31/16 at 18:00 Zolpidem Tartrate (Ambien) 5 mg QHS PRN PO SLEEP; Start 12/31/16 at 18:00 Enoxaparin Sodium (Lovenox) 40 mg DAILY SC Last administered on 01/13/17 09:01 ; Admin Dose 40 MG; Start 01/01/17 at 09:00 Morphine Sulfate (morphine) 2 mg Q2H PRN IV PAIN LEVEL 7-10 Last administered on 01/12/17 23:01; Admin Dose 2 MG; Start 12/31/16 at 18:30 Miscellaneous Information 1 ea NOTE XX ; Start 01/01/17 at 07:30 Glucose (Glutose) 15 gm Q15M PRN PO DECREASED GLUCOSE; Start 01/01/17 at 07:30 Glucose (Glutose) 22.5 gm Q15M PRN PO DECREASED GLUCOSE; Start 01/01/17 at 07: 30 Dextrose (D50w Syringe) 25 ml Q15M PRN IV DECREASED GLUCOSE; Start 01/01/17 at 07:30 Dextrose (D50w Syringe) 50 ml Q15M PRN IV DECREASED GLUCOSE; Start 01/01/17 at 07:30 Glucagon (Glucagen) 1 mg Q15M PRN IM DECREASED GLUCOSE; Start 01/01/17 at 07:30 Glucose (Glutose) 15 gm Q15M PRN BUCCAL DECREASED GLUCOSE; Start 01/01/17 at 07 :30 Lubiprostone (Amitiza) 24 mcg BID PO Last administered on 01/13/17 08:58; Admin Dose 24 MCG; Start 01/01/17 at 21:00 Pantoprazole 40 mg 40 mg DAILY@06 PO Last administered on 01/13/17 05:37; Admin Dose 40 MG; Start 01/03/17 at 06:00 Ertapenem/Sodium Chloride (Invanz/NS) 100 ml @ 200 mls/hr Q24H IVPB Last administered on 01/13/17 15:06; Admin Dose 200 MLS/HR; Start 01/03/17 at 15:00 Sodium Hypochlorite (Dakin'S (/4 Strength)) 1 applic DAILY IRR Last administered on 01/13/17 16:03; Admin Dose 1 APPLIC; Start 01/04/17 at 13:30 Diagnostic Test (Pha) (Accu-Chek) 1 ea 02 XX ; Start 01/05/17 at 02:00 Linezolid (Zyvox) 600 mg BID PO Last administered on 01/13/17 08:58; Admin Dose 600 MG; Start 01/07/17 at 21:00 TAMARA SMITH MD January 13, 2017 17:28
[2017-01-13] MEDS ORDERED: LIDOCAINE 1% (MPF) 5 ML VIAL SC ONE (17:30)
--- NOTE | 2017-01-13 17:30 | PN ---
Date/Time of Note Date/Time of Note DATE: 01/13/17 TIME: 17:30 Assessment/Plan VTE Prophylaxis VTE Prophylaxis Intervention: other Lines/Catheters IV Catheter Type (from [facility]): Saline Lock Urinary Cath still in place: No Assessment/Plan Chief Complaint/Hosp Course IMPRESSION: 1. Patient has suppurativa hidradenitis recurrence.on antibiotic 2. Groin wound. s/p i and d 3. Patient has diabetes mellitus. 4. The patient has anemia. 5. The patient has elevated ESR. 6 LEG EDEMA on lasix better 7 polymicrobial sepsis plan wound care antibiotic per surgery home pt and family refused snf invanz and zyvox Problems: Subjective 24 Hr Interval Summary Cardiovascular: no complaints Gastrointestinal: no complaints Genitourinary: no complaints Exam/Review of Systems Vital Signs Vitals Vital Signs Date Time Temp Pulse Resp B/P Pulse Ox O2 Delivery O2 Flow Rate FiO2 01/13/17 07:30 98.0 71 20 105/57 97 Intake and Output 01/12/17 01/12/17 01/13/17 15:00 23:00 07:00 Intake Total 970 ml 480 ml Output Total 900 ml Balance 970 ml -420 ml Exam Cardiovascular: regular rate and rhythm Gastrointestinal: soft Musculoskeletal: nl extremities to inspection Extremities: normal pulses Results Result Diagram: 01/11/1716 01/11/17 0516 Results 24 hrs Laboratory Tests Test 01/12/17 17:33 01/12/17 21:15 01/13/17 07:41 01/13/17 12:02 Bedside Glucose 130 113 94 158 Medications Medications Current Medications Aspirin (Halfprin) 81 mg DAILY PO Last administered on 01/13/17 08:58; Admin Dose 81 MG; Start 01/01/17 at 09:00 Diclofenac Sodium (Voltaren) 75 mg TID PO Last administered on 01/13/17 15:06; Admin Dose 75 MG; Start 12/31/16 at 21:00 Ferrous Sulfate (Ferrous Sulfate (Ec)) 325 mg BID PO Last administered on 08:58; Admin Dose 325 MG; Start 12/31/16 at 21:00 Gabapentin (Neurontin) 300 mg BID PO Last administered on 01/13/17 08:58; Admin Dose 300 MG; Start 12/31/16 at 21:00 Gemfibrozil (Lopid) 600 mg BID PO Last administered on 01/13/17 08:58; Admin Dose 600 MG; Start 12/31/16 at 21:00 Lisinopril (Zestril) 5 mg DAILY PO Last administered on 01/13/17 08:58; Admin Dose 5 MG; Start 01/01/17 at 09:00 Ondansetron HCl (Zofran Inj) 4 mg Q6H PRN IV NAUSEA AND/OR VOMITING Last administered on 01/09/17 11:39; Admin Dose 4 MG; Start 12/31/16 at 18:00 Acetaminophen (Tylenol Tab) 650 mg Q6H PRN PO PAIN LEVEL 1-3 OR FEVER Last administered on 01/04/17 03:21; Admin Dose 650 MG; Start 12/31/16 at 18:00 Acetaminophen (Tylenol Supp) 650 mg Q6H PRN [place] PAIN LEVEL 1-3 OR FEVER; Start 12/31/16 at 18:00 Ibuprofen (Motrin) 600 mg Q6H PRN PO PAIN LEVEL 1-3; Start 12/31/16 at 18:00 Acetaminophen/ Hydrocodone Bitart ([place] (5/325)) 1 tab Q6H PRN PO MODERATE PAIN LEVEL 4-6; Start 12/31/16 at 18:00 Docusate Sodium (Colace) 100 mg Q12H PRN PO CONSTIPATION Last administered on 09:32; Admin Dose 100 MG; Start 12/31/16 at 18:00 Magnesium Hydroxide (Milk Of Mag) 30 ml DAILY PRN PO CONSTIPATION; Start at 18:00 Bisacodyl (Dulcolax) 5 mg DAILY PRN PO CONSTIPATION Last administered on 09:32; Admin Dose 5 MG; Start 12/31/16 at 18:00 Bisacodyl (Dulcolax Supp) 10 mg DAILY PRN [place] CONSTIPATION Last administered on 01/06/17 09:28; Admin Dose 10 MG; Start 12/31/16 at 18:00 Zolpidem Tartrate (Ambien) 5 mg QHS PRN PO SLEEP; Start 12/31/16 at 18:00 Enoxaparin Sodium (Lovenox) 40 mg DAILY SC Last administered on 01/13/17 09:01 ; Admin Dose 40 MG; Start 01/01/17 at 09:00 Morphine Sulfate (morphine) 2 mg Q2H PRN IV PAIN LEVEL 7-10 Last administered on 01/12/17 23:01; Admin Dose 2 MG; Start 12/31/16 at 18:30 Miscellaneous Information 1 ea NOTE XX ; Start 01/01/17 at 07:30 Glucose (Glutose) 15 gm Q15M PRN PO DECREASED GLUCOSE; Start 01/01/17 at 07:30 Glucose (Glutose) 22.5 gm Q15M PRN PO DECREASED GLUCOSE; Start 01/01/17 at 07: 30 Dextrose (D50w Syringe) 25 ml Q15M PRN IV DECREASED GLUCOSE; Start 01/01/17 at 07:30 Dextrose (D50w Syringe) 50 ml Q15M PRN IV DECREASED GLUCOSE; Start 01/01/17 at 07:30 Glucagon (Glucagen) 1 mg Q15M PRN IM DECREASED GLUCOSE; Start 01/01/17 at 07:30 Glucose (Glutose) 15 gm Q15M PRN BUCCAL DECREASED GLUCOSE; Start 01/01/17 at 07 :30 Lubiprostone (Amitiza) 24 mcg BID PO Last administered on 01/13/17 08:58; Admin Dose 24 MCG; Start 01/01/17 at 21:00 Pantoprazole 40 mg 40 mg DAILY@06 PO Last administered on 01/13/17 05:37; Admin Dose 40 MG; Start 01/03/17 at 06:00 Ertapenem/Sodium Chloride (Invanz/NS) 100 ml @ 200 mls/hr Q24H IVPB Last administered on 01/13/17 15:06; Admin Dose 200 MLS/HR; Start 01/03/17 at 15:00 Sodium Hypochlorite (Dakin'S (1/4 Strength)) 1 applic DAILY IRR Last administered on 01/13/17 16:03; Admin Dose 1 APPLIC; Start 01/04/17 at 13:30 Diagnostic Test (Pha) (Accu-Chek) 1 ea 02 XX ; Start 01/05/17 at 02:00 Linezolid (Zyvox) 600 mg BID PO Last administered on 01/13/17 08:58; Admin Dose 600 MG; Start 01/07/17 at 21:00 TAMARA SMITH MD January 13, 2017 17:30
[2017-01-13 20:16] VITALS: BP 119/59; RESP 18
[2017-01-13] MEDS: morphine 2 MG INJ IV PRN (23:13)
[2017-01-14] MEDS: ACCU-CHEK XX SCH (02:00)
[2017-01-14] MEDS: PANTOPRAZOLE (EC) 40 MG TAB PO SCH (06:12)
[2017-01-14 07:34] VITALS: BP 124/73; RESP 20
[2017-01-14] MEDS: INSULIN ASPART [NOVOLOG] 3 ML PEN SC SCH ×2 (08:00→12:00)
[2017-01-14] MEDS: DICLOFENAC (EC) 75 MG TAB PO SCH ×2 (09:00→09:15)
[2017-01-14] MEDS: ENOXAPARIN 40 MG/0.4 ML SYG SC SCH (09:00)
[2017-01-14] MEDS: metFORMIN 500 MG TAB PO SCH (09:15)
[2017-01-14] MEDS: GABAPENTIN 300 MG CAP PO SCH (09:15)
[2017-01-14] MEDS: ASPIRIN (EC) 81 MG TAB PO SCH (09:15)
[2017-01-14] MEDS: GEMFIBROZIL 600 MG TAB PO SCH (09:15)
[2017-01-14] MEDS: LUBIPROSTONE 24 MCG CAP PO SCH (09:15)
[2017-01-14] MEDS: FERROUS SULFATE (EC) 325 MG TAB PO SCH (09:15)
[2017-01-14] MEDS: ZYVOX 600 MG TAB PO SCH (09:16)
[2017-01-14] MEDS: LISINOPRIL 5 MG TAB PO SCH (09:16)
[2017-01-14] MEDS: SODIUM HYPOCHLORITE 0.125% 473 ML BTL IRR SCH (12:16)
--- NOTE | 2017-01-14 13:23 | PN ---
DATE: 01/14/2017 SUBJECTIVE: No events overnight. No fevers. Patient is alert, looks comfortable. Vital signs sta ble. PHYSICAL EXAMINATION: GENERAL: Well-developed, elderly man who is alert, in no distress. HEENT: Head atraumatic, normocephalic. Sclerae anicteric. Buccal mucosa pink. NECK: Supple. CHEST: Rise symmetrical. Breath sounds clear. HEART: S1, S2. ABDOMEN: Soft. Bowel tones present. ASSESSMENT: 1. Bilateral inguinal and buttock hidradenitis suppurativa status post multiple debridements with c mesfin growing VRE and Proteus mirabilis and Escherichia coli. 2. Diabetes. PLAN: The patient remains stable on appropriate antimicrobials with Zyvox and Invanz, surgery on ca se, continue present care. Anticipate discharge on current antimicrobials, to complete 2 weeks norma tment and follow with surgery as an outpatient. Dictated By: EZIO LUEVANO SEALING MACHINE OPERATOR for ANGELA FAY/MAURIZIO Conf#: [id number] DID#: [id number]
== END 2017-01-14 12:49 | disposition home or self-care (01) | DRG 579 ==
LOC: E/R 13:47 → PP2 18:07
PROVIDERS: ADMIT Internal Medicine Nephrology; ATTEND Internal Medicine Nephrology
PROC: 0Y950ZZ Drainage of Right Inguinal Region, Open Approach (ICD-10-PCS; 2017-01-03)
PROC: 0J990ZZ Drainage of Buttock Subcutaneous Tissue and Fascia, Open Approach (ICD-10-PCS; 2017-01-03)
PROC: 0W9M0ZZ Drainage of Male Perineum, Open Approach (ICD-10-PCS; 2017-01-03)
PROC: 0Y960ZZ Drainage of Left Inguinal Region, Open Approach (ICD-10-PCS; principal; 2017-01-03 17:30)
PROC: 30233N1 Transfusion of Nonautologous Red Blood Cells into Peripheral Vein, Percutaneous Approach (ICD-10-PCS; 2017-01-05)
DX: L73.2 Hidradenitis suppurativa (principal); A41.89 Other specified sepsis; K76.6 Portal hypertension; E11.42 Type 2 diabetes mellitus with diabetic polyneuropathy; E88.09 Other disorders of plasma-protein metabolism, not elsewhere classified; I10 Essential (primary) hypertension; D50.9 Iron deficiency anemia, unspecified; F17.200 Nicotine dependence, unspecified, uncomplicated; E78.5 Hyperlipidemia, unspecified; R70.0 Elevated erythrocyte sedimentation rate; I86.8 Varicose veins of other specified sites; M48.10 Ankylosing hyperostosis [Forestier], site unspecified; E78.00 Pure hypercholesterolemia, unspecified; B96.4 Proteus (mirabilis) (morganii) as the cause of diseases classified elsewhere; B96.20 Unspecified Escherichia coli [E. coli] as the cause of diseases classified elsewhere; B95.2 Enterococcus as the cause of diseases classified elsewhere; Z16.21 Resistance to vancomycin; R60.0 Localized edema
CPT/HCPCS: 36415; 36430; 71010; 74177; 80048; 80053; 80202; 81001; 81003; 82565; 82962; 83605; 84484; 84520; 85025; 85610; 85651; 85730; 86850; 86900; 86901; 86920; 87040; 87070; 87081; 87086; 93005; 96361; 96365; 96375; 96376; J1940; C9113; J1335; J1650; J1815; J1956; J2250; J2270; J2370; J2405; J3010; J3370; J7030; J7040; J7050; P9016; Q9967

== ENCOUNTER 2017-02-14 09:15 | Day surgery (SDC) | payer BC ==
[2017-02-13 12:50] VITALS: BMI 23.1
[2017-02-14] VITALS (8 sets, daily range): BP systolic 93–148; BP diastolic 59–72; PULSE 80–92; RESP 16–19; Ht 177.8 cm; Wt 73.7 kg
[~2017-02-14] VITALS: Ht 177.8 cm; Wt 73.7 kg
[~2017-02-14 09:15] MED LIST changes: +ASPI-664 PO; +Accu-Chek XX; +BISA5TAB6 PO; +DOCU-216 PO; -DOXY100T20 PO; +ENOX40DI12 SC; +HYDR-3498 PO; +LINE600T6 PO; -SENN-53 PO; +SIMV20TA PO; +SODI473S16 IRR; -VANC1PLA9 IV
[2017-02-14] MEDS ORDERED: LACTATED RINGER'S 1,000 ML IV* ONE (11:00)
[2017-02-14] MEDS ORDERED: VANCOMYCIN 1 GM in NS 250 ML IVPB ONE (11:00)
[2017-02-14] MEDS ORDERED: CIPROFLOXACIN 400MG/D5W 200 ML IVPB ONE (11:22)
--- NOTE | 2017-02-14 11:22 | HPN ---
Date/Time of Note Date/Time of Note DATE: 02/14/17 TIME: 11:22 Interval H&P Admission Note Pt. seen H&P reviewed: No system changes STARR MISHRA MD Feb 14, 2017 11:22
[2017-02-14] MEDS ORDERED: BUPIVACAINE 0.5%/EPI (SDV) 10 ML INJ ONE (11:32)
[2017-02-14] MEDS ORDERED: LIDOCAINE 1% (MPF) 30 ML INJ ONE (11:33)
[2017-02-14] MEDS ORDERED: PROPOFOL 20 ML ONE ×2 (11:40→12:06)
[2017-02-14] MEDS ORDERED: FENTAnyl 50 MCG/ML VIAL ONE ×2 (11:40→12:19)
[2017-02-14] MEDS ORDERED: MIDAZOLAM 1 MG/ML 2 ML INJ ONE (11:40)
[2017-02-14] MEDS ORDERED: METOCLOPRAMIDE 10 MG INJ ONE (11:40)
[2017-02-14] MEDS ORDERED: CEFAZOLIN 1 GM INJ ONE (11:40)
[2017-02-14] MEDS ORDERED: CIPROFLOXACIN 400MG/D5W 200 ML ONE (11:47)
[2017-02-14] MEDS ORDERED: SUCCINYLCHOLINE CHLORIDE 100 MG/5 ML SYG IV ONE (12:07)
[2017-02-14] MEDS ORDERED: METOCLOPRAMIDE 10 MG INJ IV PRN (12:30)
[2017-02-14] MEDS ORDERED: OXYCODONE/ACETAMINOPHEN (5/325) TAB PO PRN ×2 (12:30)
[2017-02-14] MEDS ORDERED: HYDROmorphONE (0.2 MG/ML) 10ML SYG IV PRN ×3 (12:30)
[2017-02-14] MEDS ORDERED: DIPHENHYDRAMINE 50 MG INJ IV PRN (12:30)
[2017-02-14] MEDS ORDERED: MEPERIDINE 25 MG INJ IV PRN (12:30)
[2017-02-14] MEDS ORDERED: ONDANSETRON 4 MG INJ IV PRN ×2 (12:30→13:30)
[2017-02-14] MEDS ORDERED: LACTATED RINGER'S 1,000 ML IV SCH (13:30)
[2017-02-14] MEDS ORDERED: HYDROCODONE/APAP (5/325) TAB PO PRN ×2 (13:30)
[2017-02-14] MEDS ORDERED: morphine 2 MG INJ IV ONE (13:30)
--- NOTE | 2017-02-14 14:38 | OPR ---
DATE OF OPERATION: 02/14/2017 PREOPERATIVE DIAGNOSES: 1. Left neck region, 3 x 2 cm. 2. Chest wall lesion, 3 x 2 cm. POSTOPERATIVE DIAGNOSES: 1. Left neck region, 3 x 2 cm. 2. Chest wall lesion, 3 x 2 cm. PROCEDURES: 1. Excision of left neck region, 3 x 2 cm. 2. Excision of chest wall lesion, 3 x 2 cm. 3. Local anesthetic injection, [id number]. SURGEON: Starr Martinez MD NEWSPAPER CORRESPONDENT: None. ANESTHESIA: General per LMA and local. ANESTHESIOLOGIST: Dr. Sanchez. COMPLICATIONS: None. SPECIMEN: Lesions x2. ESTIMATED BLOOD LOSS: Less than 5 mL total. INDICATION: Mr. Lazcano has 2 lesions persisting on his neck and chest wall and is here for excision. Risks, benefits, alternatives were fully explained as per usual and customary including bleeding, i nfection, injury to surrounding structures, hematoma, seroma, wound formation, need for further surg eries, heart attack, stroke, PE, DVT, pneumonia, organ failures or . Both he and his unde rstand and elect to proceed with surgery. DISPOSITION: Tolerated procedure well and was taken back to recovery in stable condition and all co unts were correct at the end of the operation x2. PROCEDURE NOTE: The patient was brought in, placed supine on the operating table and after inductio n of anesthesia, all pressure points were well padded and he was prepped and draped in usual sterile fashion and time out was performed. Preoperative antibiotics administered. Local anesthetic was injected at both sites. Elliptical incisions were made and both were excised f ully with capsules intact. These were sebaceous cysts. Wounds were thoroughly irrigated and skin w as closed with 4-0 Monocryl in subcuticular fashion and covered with Dermabond. The patient tolerat ed the procedure well and was taken back to recovery in stable condition and all counts were correct at the end of the operation x2. Dictated By: STARR ZULUAGA/MAURIZIO Conf#: [id number] DID#: [id number]
== END 2017-02-14 14:45 | disposition home or self-care (01) ==
LOC: SDS 09:15
PROVIDERS: ATTEND Surgery
DX: D23.4 Other benign neoplasm of skin of scalp and neck (principal); L72.0 Epidermal cyst; I10 Essential (primary) hypertension; E11.9 Type 2 diabetes mellitus without complications; E78.5 Hyperlipidemia, unspecified; Z85.89 Personal history of malignant neoplasm of other organs and systems
CPT/HCPCS: 11406; 11426; 82962; 88304; J0744; J2250; J3010; Z7512; Z7610; J0690; J2765; J7999

== ENCOUNTER → 2017-04-02 | Outpatient (CLI) | payer BC ==
[~2017-04-02] MED LIST changes: -Accu-Chek XX; -DOCU-216 PO; -ENOX40DI12 SC; -HYDR-906 PO; +LIDOCAINE 1% (MPF) 5 ML VIAL SC ONE; -SODI473S16 IRR
--- NOTE | 2017-04-02 14:38 | RADRPT ---
PROCEDURE: XR Chest. CLINICAL INDICATION: Check PICC line position. TECHNIQUE: Single frontal view. COMPARISON: Prior study done earlier the same day. FINDINGS: There is a left arm PICC line with the tip in the view cavoatrial junction. There is mild pulmonary edema, unchanged. The heart size is normal. There is a stent in the thoracic aorta, unchanged. There is no pleural effusion. There is no pneumothorax. IMPRESSION: 1. Left arm PICC line tip in satisfactory position. 2. Mild pulmonary edema, unchanged. 3. Stent in the thoracic aorta, unchanged. RPTAT: QQ .Kenny Mohr MD, MD Date Time Electronically viewed and signed by .Kenny Mohr MD, on 04/02/2017 14:38 .R/
--- NOTE | 2017-04-02 14:39 | RADRPT ---
PROCEDURE: XR Chest. CLINICAL INDICATION: Check PICC line position. TECHNIQUE: Single frontal view. COMPARISON: 12/31/2016. FINDINGS: There is a left arm PICC line with the tip in the lower right atrium. There is mild interstitial pu lmonary edema. The lungs are otherwise clear. The heart size is normal. There is a stent in the aorta. There is no pleural effusion. There is no pneumothorax. IMPRESSION: 1. Left arm PICC line tip in lower right atrium. This should be repositioned. The nurse is aware. 2. Mild pulmonary edema. 3. Stent in the aorta. RPTAT: QQ .Kenny Mohr MD, MD Date Time Electronically viewed and signed by .Kenny Mohr MD, MD on 04/02/2017 14:39 .R/
== END | disposition home or self-care (01) ==
LOC: RAD 13:07
PROVIDERS: ATTEND Internal Medicine Infectious Disease
DX: L98.499 Non-pressure chronic ulcer of skin of other sites with unspecified severity (principal); L08.9 Local infection of the skin and subcutaneous tissue, unspecified
CPT/HCPCS: 36569; 71010; 76937; Z7610

== ENCOUNTER 2018-02-05 08:40 | Inpatient (IN) | END 2018-02-12 17:23 | disposition home health service (06) | DRG 581 ==

== ENCOUNTER 2018-07-16 23:28 | Inpatient (IN) | END 2018-07-23 14:15 | disposition home health service (06) | DRG 603 ==

== ENCOUNTER 2019-02-13 23:55 | Inpatient (IN) | payer BC ==
[~2019-02-13] VITALS: Ht 185.4 cm; Wt 61.2 kg
[~2019-02-13 23:55] MED LIST changes: -ASPI-664 PO; +ASPI-817 PO; -BISA5TAB6 PO; +FENO145T37 PO; -GABA300C16 PO; -GEMF600T60 PO; -HYDR-3498 PO; -LIDOCAINE 1% (MPF) 5 ML VIAL SC ONE; -LINE600T6 PO; +METF500T24 PO; -METF500T4 PO; +MUPI22OI2 TOP; -SIMV20TA PO
[2019-02-14] MEDS ORDERED: VANCOMYCIN 1 GM (PMX) 250 ML IVPB STA (00:39)
[2019-02-14] MEDS ORDERED: CEFEPIME 2GM/50 ML (PMX) 50 ML IVPB STA (00:41)
--- NOTE | 2019-02-14 01:48 | ERD ---
ER Documentation Chief Complaint Chief Complaint GROIN PAIN X 4 DAYS. HPI This is a 63-year-old male with a prior history of diabetes, coronary disease, who presents with 4 days of groin pain and swelling. He has noted scrotal swell ing coming from his left groin, he denies fever, he resides at a half-way facility. No abdominal pain, no nausea vomiting, no chest pain or shortness of breath. ROS All systems reviewed and are negative except as per history of present illness. Medications Home Meds Reported Medications Mupirocin* (Bactroban*) 2% -22 Gram Oint...g., 1 APPLIC TOP TID, #1 TUB SITE OF APPLICATION: 07/16/18 Fenofibrate Nanocrystallized* (Fenofibrate*) 145 Mg Tablet, 145 MG PO DAILY, TAB 07/16/18 Metformin Hcl* (Metformin Hcl*) 500 Mg Tablet, 500 MG PO WITH BREAKFAST DINNE, #60 TAB 07/16/18 Aspirin* (Aspirin* EC) 81 Mg Tablet.dr, 81 MG PO DAILY, TAB 07/16/18 Ferrous Sulfate* (Ferrous Sulfate*) 325 Mg Tabec, 325 MG PO BID, TAB 07/16/18 Lisinopril* (Lisinopril*) 5 Mg Tablet, 5 MG PO DAILY, #30 TAB 07/16/18 Allergies Allergies: Coded Allergies: Penicillins (Verified Allergy, Severe, ANAPHYLACTIC SHOCK, 07/16/18) PMhx/Soc History of Surgery: Yes Anesthesia Reaction: No Hx Neurological Disorder: No Hx Respiratory Disorders: No Hx Cardiac Disorders: Yes Hx Psychiatric Problems: No Hx Alcohol Use: No Hx Substance Use: No Hx Tobacco Use: Yes Smoking Status: Current every day smoker Physical Exam Vitals Vital Signs Date Temp Pulse Resp B/P (MAP) Pulse Ox O2 O2 Flow FiO2 Time Delivery Rate 02/14/19 97.9 77 16 126/63 100 Room Air 01:00 (84) 02/14/19 97.9 77 16 114/64 100 00:03 (81) Physical Exam Const: Chronically ill-appearing male, in no acute distress Head: Atraumatic Eyes: Normal Conjunctiva ENT: Normal External Ears, Nose and Mouth. Neck: Full range of motion. No meningismus. Resp: Clear to auscultation bilaterally Cardio: Regular rate and rhythm, no murmurs Abd: Soft, non tender, non distended. Normal bowel sounds exam: There is purulent drainage coming from the left scrotum, there is no crepitus, there is notable fluctuance over the scrotum, abdomen is soft and nontender, there is no brawny edema Skin: No petechiae or rashes Back: No midline or flank tenderness Ext: No cyanosis, or edema Neur: Awake and alert Psych: Normal Mood and Affect Result Diagram: 02/14/19 0034 02/14/19 0033 Results 24 hrs Laboratory Tests Test 02/14/19 00:33 02/14/19 00:34 02/14/19 00:56 02/14/19 01:18 Sodium Level 135 mmol/L Potassium Level 4.4 mmol/L Chloride Level 106 mmol/L Carbon Dioxide Level 23 mmol/L Anion Gap 6 Blood Urea Nitrogen 15 mg/dl Creatinine 0.66 mg/dl Est Glomerular > 60 mL/min Filtrat Rate mL/min Glucose Level 82 mg/dl Calcium Level 8.0 mg/dl Troponin I < 0.012 ng/ml White Blood Count 9.1 10^3/ul Red Blood Count 3.47 10^6/ul Hemoglobin 8.9 g/dl Hematocrit 29.5 % Mean Corpuscular 85.0 fl Volume Mean Corpuscular 25.6 pg Hemoglobin Mean Corpuscular 30.2 g/dl Hemoglobin Concent Red Cell 18.9 % Distribution Width Platelet Count 279 10^3/UL Mean Platelet Volume 9.4 fl Immature 0.300 % Granulocytes % Neutrophils % 78.3 % Lymphocytes % 15.1 % Monocytes % 5.3 % Eosinophils % 0.7 % Basophils % 0.3 % Nucleated Red Blood 0.0 /100WBC Cells % Immature 0.030 10^3/ul Granulocytes # Neutrophils # 7.1 10^3/ul Lymphocytes # 1.4 10^3/ul Monocytes # 0.5 10^3/ul Eosinophils # 0.1 10^3/ul Basophils # 0.0 10^3/ul Nucleated Red Blood 0.0 10^3/ul Cells # POC Venous Lactate 1.6 mmol/L Prothrombin Time 15.8 Sec Prothrombin Time 1.2 Ratio INR International 1.25 Normalized Ratio Activated 40.0 Sec Partial Thromboplast Time Current Medications Medications Dose Sig/Katlyn Start Time Status Last (Trade) Ordered Route PRN Stop Time Admin Dose Reason Admin Vancomycin 250 ml @ ONCE STAT 02/14/19 02/14/19 HCl 125 mls/hr IVPB 00:39 02/14/19 01:20 02:38 Cefepime HCl 50 ml @ ONCE STAT 02/14/19 DC 02/14/19 100 mls/hr IVPB 00:41 02/14/19 00:58 01:10 Procedures/MDM This is a 63-year-old male who presents for evaluation of pain and swelling to the scrotal area. Ultrasound showed an abscess of left scrotal area, Dr. Beck consulted for urology, patient was started on vancomycin and cefepime for antibi otics, he has no evidence of sepsis or severe sepsis. At this point, I have a low suspicion for necrotizing fasciitis. Patient has remained hemodynamically stable in the ED. EKG: Rate/Rhythm: Normal Sinus Rhythm QRS, ST, T-waves: No changes consistent w/ acute ischemia Impression: No evidence of ischemia or arrhythmia Accepting Care Team: Current data and ongoing care discussed. Primary: Jason Consulting: Chris Outstanding Data: none Departure Diagnosis: Primary Impression: Scrotal abscess Condition: Stable CHET PECK MD Feb 14, 2019 01:48
[2019-02-14] MEDS ORDERED: SOD CHLORIDE 0.9% 1,000 ML IV ONE (02:00)
[2019-02-14 03:30] VITALS: BP 99/51; PULSE 74
[2019-02-14 03:50] VITALS: Ht 185.4 cm; Wt 61.2 kg
[2019-02-14] MEDS ORDERED: VANCOMYCIN IV PER PHARMACY XX SCH (05:00)
[2019-02-14] MEDS ORDERED: ACETAMINOPHEN 325 MG TAB PO PRN (05:00)
[2019-02-14] MEDS ORDERED: traMADol 50 MG TAB PO PRN (05:00)
[2019-02-14] MEDS: SOD CHLORIDE 0.9% 1,000 ML IV SCH (05:44)
[2019-02-14] MEDS: PANTOPRAZOLE (EC) 40 MG TAB PO SCH (05:44)
[2019-02-14] MEDS: morphine 2 MG INJ IV PRN (05:44)
[2019-02-14] MEDS ORDERED: GLUCOSE GEL 15 GRAM TUBE PO PRN ×2 (06:30)
[2019-02-14] MEDS ORDERED: GLUCAGON 1 MG INJ IM PRN (06:30)
[2019-02-14] MEDS ORDERED: GLUCOSE GEL 15 GRAM TUBE BUCCAL PRN (06:30)
[2019-02-14] MEDS ORDERED: DEXTROSE 50% 50 ML SYRINGE IV PRN ×2 (06:30)
[2019-02-14] MEDS: INSULIN ASPART [NOVOLOG] 3 ML PEN SC SCH ×4 (08:00→21:00)
[2019-02-14 08:07] VITALS: BP 111/54; PULSE 79; RESP 18
--- NOTE | 2019-02-14 09:22 | HP ---
Date/Time of Note Date/Time of Note DATE: 02/14/19 TIME: 09:21 Assessment/Plan VTE Prophylaxis Pharmacological prophylaxis: LMWH Lines/Catheters IV Catheter Type (from Nrsg): Peripheral IV Assessment/Plan Hospital Course 1. Chronic hydradenitis suppurativa 2. Scrotal abscess 3. Diabetes mellitus type 2, 4. Anemia 5. hypertension, 6. Hx of numerous perianal, bilateral inguinal abscesses and I and D of them, 7. Dyslipidemia 8. Current every day smoker 9. History of coronary artery disease, Assessment/Plan -Dr Perez, urology, called ER -dr [place], [place] -DVT prophylaxis Lovenox -GI proph. Protonix -pain control -c/ Vanco/cefipime Result Diagram: 02/14/19 0034 02/14/19 0033 Results 24hrs Laboratory Tests Test 02/14/19 00:33 02/14/19 00:34 02/14/19 00:56 02/14/19 01:18 Sodium Level 135 Potassium Level 4.4 Chloride Level 106 Carbon Dioxide Level 23 Anion Gap 6 Blood Urea Nitrogen 15 Creatinine 0.66 Est Glomerular Filtrat > 60 Rate mL/min Glucose Level 82 Calcium Level 8.0 L Troponin I < 0.012 White Blood Count 9.1 Red Blood Count 3.47 L Hemoglobin 8.9 L Hematocrit 29.5 L Mean Corpuscular Volume 85.0 Mean Corpuscular 25.6 L Hemoglobin Mean Corpuscular 30.2 L Hemoglobin Concent Red Cell Distribution 18.9 H Width Platelet Count 279 Mean Platelet Volume 9.4 Immature Granulocytes % 0.300 Neutrophils % 78.3 H Lymphocytes % 15.1 Monocytes % 5.3 Eosinophils % 0.7 Basophils % 0.3 Nucleated Red Blood 0.0 Cells % Immature Granulocytes # 0.030 Neutrophils # 7.1 Lymphocytes # 1.4 Monocytes # 0.5 Eosinophils # 0.1 Basophils # 0.0 Nucleated Red Blood 0.0 Cells # POC Venous Lactate 1.6 Prothrombin Time 15.8 H Prothrombin Time Ratio 1.2 INR International 1.25 Normalized Ratio Activated 40.0 H Partial Thromboplast Time Test 02/14/19 06:06 02/14/19 08:16 Lactic Acid Level 1.3 Bedside Glucose 114 HPI/ROS Admit Date/Time Admit Date/Time Feb 14, 2019 at 01:00 Hx of Present Illness This is a 63-year-old male with a past medical history of diabetes type 2, history of coronary artery disease, hypertension, previous admissions with perianal, bilateral inguinal abscesses and I and D of them, and dyslipidemia who presented to ER with scrotal abscess and increased drainage from the bilateral gluteal region. Pt reported copious drainage and rotten smell out of wounds, he needs to cover them, otherwise drainage will be spilled on surrounding skin. No fever. The patient has had multiple admissions in the past, last one in 07/2018. At that time, the patient also had hidradenitis suppurativa infection. He had I and D in the past and was seen by surgical consults Dr. Martinez and dr Velazquez. The patient required pain medicine, antibiotics and wound care. Pt also was consulted by dr Perez, urology. ROS Gastrointestinal: no complaints Skin: skin lesions PMH/Family/Social Past Medical History Medical History: coronary artery disease, diabetes, hypertension Medications Current Medications Sodium Chloride 1,000 ml @ 50 mls/hr Q20H IV Last administered on 02/14/19at 05:44; Admin Dose 50 MLS/HR; Start 02/14/19 at 05:00 Tramadol HCl (Ultram) 50 mg Q6H PRN PO MODERATE PAIN LEVEL 4-6; Start 02/14/19 at 05:00 Morphine Sulfate (morphine) 2 mg Q4H PRN IV SEVERE PAIN LEVEL 7-10 Last administered on 02/14/19at 05:44; Admin Dose 2 MG; Start 02/14/19 at 05:00 Acetaminophen (Tylenol Tab) 650 mg Q6H PRN PO MILD PAIN(1-3)OR ELEVATED TEMP; Start 02/14/19 at 05:00 Pantoprazole (Protonix Tab) 40 mg DAILY@06 PO Last administered on 02/14/19at 05:44; Admin Dose 40 MG; Start 02/14/19 at 06:00 Enoxaparin Sodium (Lovenox) 40 mg DAILY SC ; Start 02/14/19 at 09:00 Vancomycin HCl (Vanco Iv Per Pharmacy) VANCOMYCIN PER PHARMACY PER PROTOCOL XX ; Start 02/14/19 at 05:00 Vancomycin HCl 250 ml @ 125 mls/hr Q12H IVPB ; Start 02/14/19 at 13:00 Diagnostic Test (Pha) (Accu-Chek) 1 ea 02 XX ; Start 02/15/19 at 02:00 Insulin Aspart (Novolog Insulin Pen) NOVOLOG *MODERATE* ALGORITHM WITH MEALS BEDTIME SC ; Start 02/14/19 at 08:00 Miscellaneous Information 1 ea NOTE XX ; Start 02/14/19 at 06:30 Glucose (Glutose) 15 gm Q15M PRN PO DECREASED GLUCOSE; Start 02/14/19 at 06:30 Glucose (Glutose) 22.5 gm Q15M PRN PO DECREASED GLUCOSE; Start 02/14/19 at 06:30 Dextrose (D50w Syringe) 25 ml Q15M PRN IV DECREASED GLUCOSE; Start 02/14/19 at 06:30 Dextrose (D50w Syringe) 50 ml Q15M PRN IV DECREASED GLUCOSE; Start 02/14/19 at 06:30 Glucagon (Glucagen) 1 mg Q15M PRN IM DECREASED GLUCOSE; Start 02/14/19 at 06:30 Glucose (Glutose) 15 gm Q15M PRN BUCCAL DECREASED GLUCOSE; Start 02/14/19 at 06: 30 Coded Allergies: Penicillins (Verified Allergy, Severe, ANAPHYLACTIC SHOCK, 07/16/18) Past Surgical History Past Surgical Hx: other (multiple I and D in past hydraadenitis suppurativa) Family History Significant Family History: no pertinent family hx Social History Smoking Status: Current every day smoker Exam/Review of Systems Vital Signs Vitals Vital Signs Date Temp Pulse Resp B/P (MAP) Pulse Ox O2 O2 Flow FiO2 Time Delivery Rate 02/14/19 98.0 79 18 111/54 100 Room Air 08:07 (73) Intake and Output 02/13/19 02/13/19 02/14/19 1515:00 23:00 07:00 IntakeIntake Total 1450 ml BalanceBalance 1450 ml Exam Constitutional: alert, oriented Head: normocephalic Respiratory: clear to auscultation JESSICA MILLS Feb 14, 2019 09:22
[2019-02-14] MEDS: FENOFIBRATE 145 MG TAB PO SCH (11:02)
[2019-02-14] MEDS: ASPIRIN (EC) 81 MG TAB PO SCH (11:03)
[2019-02-14] MEDS: FERROUS SULFATE (EC) 325 MG TAB PO SCH ×2 (11:03→21:08)
[2019-02-14] MEDS: LISINOPRIL 5 MG TAB PO SCH (11:04)
[2019-02-14] MEDS: ENOXAPARIN 40 MG/0.4 ML SYG SC SCH (11:04)
[2019-02-14] MEDS: VANCOMYCIN 1 GM 250 ML IVPB SCH (12:17)
[2019-02-14 14:00] VITALS: BP 112/56; PULSE 71; RESP 17
--- NOTE | 2019-02-14 14:27 | CONS ---
DATE OF ADMISSION: 02/14/2019 DATE OF CONSULTATION: 02/14/2019 TYPE OF CONSULTATION: Infectious disease. REASON FOR CONSULTATION: Antibiotic management. HISTORY OF PRESENT ILLNESS: Nam Lazcano is a 63-year-old male well known to us from previous admissi ons. His past problems include: 1. Adult-onset diabetes mellitus. 2. Coronary artery disease. He comes in with 4 days of groin pain and swelling. He has scrotal swelling coming from his left josiah in. He denies fever. [facility]. PAST MEDICAL HISTORY: THE PATIENT IS ALLERGIC TO PENICILLIN and he gets anaphylactic shock. FAMILY HISTORY: Noncontributory. SOCIAL HISTORY: He is a current every day smoker, does not drink or abuse drugs. ALLERGIES: NONE TO SULFA OR FOODS. MEDICATIONS: Per chart. REVIEW OF SYSTEMS: Noncontributory. PHYSICAL EXAMINATION: GENERAL: The patient is chronically ill male in no acute distress. VITAL SIGNS: Stable. He is afebrile. SKIN: Without generalized rash. HEENT: Within normal limits. NECK: Supple. LYMPH NODES: None palpable. CHEST: Decreased breath sounds at the bases. HEART: Without murmur or gallop. ABDOMEN: Soft, nontender, without organosplenomegaly or masses. EXTREMITIES: Without cyanosis, clubbing or edema. GENITOURINARY: There is purulent drainage from the left scrotum without crepitus. There is some flu ctuance over the scrotum. ABDOMEN: Soft and nontender. There is no brawny edema. NEUROLOGIC: No focal neurological abnormality. HOSPITAL COURSE: White count is 9.1 with 78% neutrophils, H and H 8.9 and 29.5, platelet count 279,0 00. BUN and creatinine is 16/0.66. Ultrasound showed an abscess in the left scrotal area. Urology has been consulted. The patient was started on vancomycin and cefepime. There is a low suspicion fo r Stephania's gangrene or necrotizing fasciitis at this point, but the patient does have what appears to be scrotal abscess. Dr. Cadena was called. Infectious disease was called. 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 The patient also has dyslipidemia and h istory of coronary artery disease. White count today is 9.1. I will dictate my findings to Dr. Bryant in, Dr. Smith, nurse practitioner, Lali Tripp. Dictated By: ANGELA CHAMBERS MD, JD/NTS Conf#: [id number] DID#: [id number] CC: MAURA CADENA MD; TAMARA SMITH MD;*End*
--- NOTE | 2019-02-14 17:12 | CONS ---
Assessment/Plan Assessment/Plan Hospital Course (Demo Recall) 63-year-old male who is known to have chronic hidradenitis suppurativa presented with 4 days history of groin pain and swelling. He has noted scrotal swelling coming from his left groin. This patient had numerous admission to the hospital here before for similar problems and was followed by the general surgery service Dr Martinez Patient does have purulent drainage from the groins mostly on the left side. The areas in the scrotum are not fluctuating. Patient needs general surgery consultation as well. He was already seen by infectious disease and placed on antibiotic. Consultation Date/Type/Reason Admit Date/Time Feb 14, 2019 at 01:00 Date of Consultation: Feb 14, 2019 Type of Consult Urology Reason for Consultation Possible scrotal abscess. Patient with history of chronic hidradenitis suppurativa Requesting Provider: TAMARA SMITH Date/Time of Note DATE: 02/14/19 TIME: 17:03 Hx of Present Illness 63-year-old male who is known to have chronic hidradenitis suppurativa presented with 4 days history of groin pain and swelling. He has noted scrotal swelling coming from his left groin. This patient had numerous admission to the hospital here before for similar problems and was followed by the general surgery service Dr Martinez Constitutional: no complaints Eyes: no complaints Genitourinary: other (Scrotal wall edema and question of scrotal abscess.) Skin: other (Bilateral groin abscesses) Past Medical History Medical History: coronary artery disease, diabetes, hypertension Home Meds Reported Medications Mupirocin* (Bactroban*) 2% -22 Gram Oint...g., 1 APPLIC TOP TID, #1 TUB SITE OF APPLICATION: 07/16/18 Fenofibrate Nanocrystallized* (Fenofibrate*) 145 Mg Tablet, 145 MG PO DAILY, TAB 07/16/18 Metformin Hcl* (Metformin Hcl*) 500 Mg Tablet, 500 MG PO WITH BREAKFAST DINNE, #60 TAB 07/16/18 Aspirin* (Aspirin* EC) 81 Mg Tablet.dr, 81 MG PO DAILY, TAB 07/16/18 Ferrous Sulfate* (Ferrous Sulfate*) 325 Mg Tabec, 325 MG PO BID, TAB 07/16/18 Lisinopril* (Lisinopril*) 5 Mg Tablet, 5 MG PO DAILY, #30 TAB 07/16/18 Medications Current Medications Sodium Chloride 1,000 ml @ 50 mls/hr Q20H IV Last administered on 02/14/19at 05:44; Admin Dose 50 MLS/HR; Start 02/14/19 at 05:00 Tramadol HCl (Ultram) 50 mg Q6H PRN PO MODERATE PAIN LEVEL 4-6; Start 02/14/19 at 05:00 Morphine Sulfate (morphine) 2 mg Q4H PRN IV SEVERE PAIN LEVEL 7-10 Last administered on 02/14/19at 05:44; Admin Dose 2 MG; Start 02/14/19 at 05:00 Acetaminophen (Tylenol Tab) 650 mg Q6H PRN PO MILD PAIN(1-3)OR ELEVATED TEMP; Start 02/14/19 at 05:00 Pantoprazole (Protonix Tab) 40 mg DAILY@06 PO Last administered on 02/14/19at 05:44; Admin Dose 40 MG; Start 02/14/19 at 06:00 Enoxaparin Sodium (Lovenox) 40 mg DAILY SC Last administered on 02/14/19at 11:04; Admin Dose 40 MG; Start 02/14/19 at 09:00 Vancomycin HCl (Vanco Iv Per Pharmacy) VANCOMYCIN PER PHARMACY PER PROTOCOL XX ; Start 02/14/19 at 05:00 Vancomycin HCl 250 ml @ 125 mls/hr Q12H IVPB Last administered on 02/14/19at 12:17; Admin Dose 125 MLS/HR; Start 02/14/19 at 13:00 Diagnostic Test (Pha) (Accu-Chek) 1 ea 02 XX ; Start 02/15/19 at 02:00 Insulin Aspart (Novolog Insulin Pen) NOVOLOG *MODERATE* ALGORITHM WITH MEALS BEDTIME SC Last administered on 02/14/19at 12:14; Admin Dose 2 UNIT; Start 02/14/19 at 08:00 Miscellaneous Information 1 ea NOTE XX ; Start 02/14/19 at 06:30 Glucose (Glutose) 15 gm Q15M PRN PO DECREASED GLUCOSE; Start 02/14/19 at 06:30 Glucose (Glutose) 22.5 gm Q15M PRN PO DECREASED GLUCOSE; Start 02/14/19 at 06:30 Dextrose (D50w Syringe) 25 ml Q15M PRN IV DECREASED GLUCOSE; Start 02/14/19 at 06:30 Dextrose (D50w Syringe) 50 ml Q15M PRN IV DECREASED GLUCOSE; Start 02/14/19 at 06:30 Glucagon (Glucagen) 1 mg Q15M PRN IM DECREASED GLUCOSE; Start 02/14/19 at 06:30 Glucose (Glutose) 15 gm Q15M PRN BUCCAL DECREASED GLUCOSE; Start 02/14/19 at 06:30 Aspirin (Halfprin) 81 mg DAILY PO Last administered on 02/14/19at 11:03; Admin Dose 81 MG; Start 02/14/19 at 10:00 Fenofibrate (Tricor) 145 mg DAILY PO Last administered on 02/14/19at 11:02; Admin Dose 145 MG; Start 02/14/19 at 10:30 Ferrous Sulfate (Ferrous Sulfate (Ec)) 325 mg BID PO Last administered on 02/14/19at 11:03; Admin Dose 325 MG; Start 02/14/19 at 10:30 Lisinopril (Zestril) 5 mg DAILY PO Last administered on 02/14/19at 11:04; Admin Dose 5 MG; Start 02/14/19 at 10:30 Allergies: Coded Allergies: Penicillins (Verified Allergy, Severe, ANAPHYLACTIC SHOCK, 07/16/18) Past Surgical History Past Surgical Hx: other (multiple I and D in past hydraadenitis suppurativa) Social History Smoking Status: Current every day smoker Exam/Review of Systems Exam Vitals Vital Signs Date Temp Pulse Resp B/P (MAP) Pulse Ox O2 O2 Flow FiO2 Time Delivery Rate 02/14/19 97.6 71 17 112/56 98 Room Air 14:00 (74) Intake and Output 02/13/19 02/13/19 02/14/19 1515:00 23:00 07:00 IntakeIntake Total 1450 ml BalanceBalance 1450 ml Constitutional: alert Psych: no complaints Eyes: nl conjunctiva Genitourinary - Male: nl penis, other (Scrotum has 2 areas one on the right one on the left that appears to be a little swollen but has no fluctuation in it. He does have purulent drainage from his groins mostly on the left side) Extremities: other (Purulent drainage from the groins mostly on the left side) Results Result Diagram: 02/14/19 0034 02/14/19 0033 Results 24hrs Laboratory Tests Test 02/14/19 00:33 02/14/19 00:34 02/14/19 00:56 02/14/19 01:18 Sodium Level 135 Potassium Level 4.4 Chloride Level 106 Carbon Dioxide Level 23 Anion Gap 6 Blood Urea Nitrogen 15 Creatinine 0.66 Est Glomerular Filtrat > 60 Rate mL/min Glucose Level 82 Calcium Level 8.0 L Troponin I < 0.012 White Blood Count 9.1 Red Blood Count 3.47 L Hemoglobin 8.9 L Hematocrit 29.5 L Mean Corpuscular Volume 85.0 Mean Corpuscular 25.6 L Hemoglobin Mean Corpuscular 30.2 L Hemoglobin Concent Red Cell Distribution 18.9 H Width Platelet Count 279 Mean Platelet Volume 9.4 Immature Granulocytes % 0.300 Neutrophils % 78.3 H Lymphocytes % 15.1 Monocytes % 5.3 Eosinophils % 0.7 Basophils % 0.3 Nucleated Red Blood 0.0 Cells % Immature Granulocytes # 0.030 Neutrophils # 7.1 Lymphocytes # 1.4 Monocytes # 0.5 Eosinophils # 0.1 Basophils # 0.0 Nucleated Red Blood 0.0 Cells # POC Venous Lactate 1.6 Prothrombin Time 15.8 H Prothrombin Time Ratio 1.2 INR International 1.25 Normalized Ratio Activated 40.0 H Partial Thromboplast Time Test 02/14/19 06:06 02/14/19 08:16 02/14/19 11:33 02/14/19 12:10 Lactic Acid Level 1.3 2.1 *H Bedside Glucose 114 148 Medications Medication Current Medications Sodium Chloride 1,000 ml @ 50 mls/hr Q20H IV Last administered on 02/14/19at 05:44; Admin Dose 50 MLS/HR; Start 02/14/19 at 05:00 Tramadol HCl (Ultram) 50 mg Q6H PRN PO MODERATE PAIN LEVEL 4-6; Start 02/14/19 at 05:00 Morphine Sulfate (morphine) 2 mg Q4H PRN IV SEVERE PAIN LEVEL 7-10 Last administered on 02/14/19at 05:44; Admin Dose 2 MG; Start 02/14/19 at 05:00 Acetaminophen (Tylenol Tab) 650 mg Q6H PRN PO MILD PAIN(1-3)OR ELEVATED TEMP; Start 02/14/19 at 05:00 Pantoprazole (Protonix Tab) 40 mg DAILY@06 PO Last administered on 02/14/19at 05 :44; Admin Dose 40 MG; Start 02/14/19 at 06:00 Enoxaparin Sodium (Lovenox) 40 mg DAILY SC Last administered on 02/14/19at 11:04; Admin Dose 40 MG; Start 02/14/19 at 09:00 Vancomycin HCl (Vanco Iv Per Pharmacy) VANCOMYCIN PER PHARMACY PER PROTOCOL XX ; Start 02/14/19 at 05:00 Vancomycin HCl 250 ml @ 125 mls/hr Q12H IVPB Last administered on 02/14/19at 12:17; Admin Dose 125 MLS/HR; Start 02/14/19 at 13:00 Diagnostic Test (Pha) (Accu-Chek) 1 ea 02 XX ; Start 02/15/19 at 02:00 Insulin Aspart (Novolog Insulin Pen) NOVOLOG *MODERATE* ALGORITHM WITH MEALS BEDTIME SC Last administered on 02/14/19at 12:14; Admin Dose 2 UNIT; Start 02/14/19 at 08:00 Miscellaneous Information 1 ea NOTE XX ; Start 02/14/19 at 06:30 Glucose (Glutose) 15 gm Q15M PRN PO DECREASED GLUCOSE; Start 02/14/19 at 06:30 Glucose (Glutose) 22.5 gm Q15M PRN PO DECREASED GLUCOSE; Start 02/14/19 at 06:30 Dextrose (D50w Syringe) 25 ml Q15M PRN IV DECREASED GLUCOSE; Start 02/14/19 at 06:30 Dextrose (D50w Syringe) 50 ml Q15M PRN IV DECREASED GLUCOSE; Start 02/14/19 at 06:30 Glucagon (Glucagen) 1 mg Q15M PRN IM DECREASED GLUCOSE; Start 02/14/19 at 06:30 Glucose (Glutose) 15 gm Q15M PRN BUCCAL DECREASED GLUCOSE; Start 02/14/19 at 06:30 Aspirin (Halfprin) 81 mg DAILY PO Last administered on 02/14/19at 11:03; Admin Dose 81 MG; Start 02/14/19 at 10:00 Fenofibrate (Tricor) 145 mg DAILY PO Last administered on 02/14/19at 11:02; Admin Dose 145 MG; Start 02/14/19 at 10:30 Ferrous Sulfate (Ferrous Sulfate (Ec)) 325 mg BID PO Last administered on 02/14/19at 11:03; Admin Dose 325 MG; Start 02/14/19 at 10:30 Lisinopril (Zestril) 5 mg DAILY PO Last administered on 02/14/19at 11:04; Admin Dose 5 MG; Start 02/14/19 at 10:30 MAURA CADENA MD Feb 14, 2019 17:12
[2019-02-14 20:00] VITALS: BP 109/54; PULSE 74; RESP 17
[2019-02-14] MEDS ORDERED: FERROUS SULFATE (EC) 325 MG TAB PO SCH (21:00)
[2019-02-15 02:00] VITALS: BP 110/53; PULSE 89; RESP 17
[2019-02-15] MEDS: ACCU-CHEK XX SCH (02:00)
[2019-02-15] MEDS: morphine 2 MG INJ IV PRN ×2 (02:11→19:32)
[2019-02-15] MEDS: VANCOMYCIN 1 GM 250 ML IVPB SCH ×2 (02:12→13:45)
[2019-02-15] MEDS: SOD CHLORIDE 0.9% 1,000 ML IV SCH ×2 (02:12→20:29)
[2019-02-15] MEDS: PANTOPRAZOLE (EC) 40 MG TAB PO SCH (05:49)
[2019-02-15 07:18] VITALS: BP 123/60; PULSE 69; RESP 16
[2019-02-15] MEDS: INSULIN ASPART [NOVOLOG] 3 ML PEN SC SCH ×4 (08:00→20:27)
[2019-02-15] MEDS: ASPIRIN (EC) 81 MG TAB PO SCH (08:22)
[2019-02-15] MEDS: FENOFIBRATE 145 MG TAB PO SCH (08:22)
[2019-02-15] MEDS: FERROUS SULFATE (EC) 325 MG TAB PO SCH ×2 (08:22→20:28)
[2019-02-15] MEDS: ENOXAPARIN 40 MG/0.4 ML SYG SC SCH (08:23)
[2019-02-15] MEDS: LISINOPRIL 5 MG TAB PO SCH (08:23)
[2019-02-15] MEDS ORDERED: LISINOPRIL 5 MG TAB PO SCH (09:00)
[2019-02-15] MEDS ORDERED: FENOFIBRATE 145 MG TAB PO SCH (09:00)
[2019-02-15] MEDS: MEROPENEM 1 GM/50ML(PMX) 50 ML IVPB SCH ×2 (12:56→20:28)
[2019-02-15 14:03] VITALS: BP 113/54; PULSE 77; RESP 16
--- NOTE | 2019-02-15 14:45 | PN ---
Date/Time of Note Date/Time of Note DATE: 02/15/19 TIME: 14:41 Assessment/Plan VTE Prophylaxis Risk score (from Ns)>0 risk: 6 SCD applied (from [facility] [place]): No SCD contraindicated: low risk/ambulating Pharmacological prophylaxis: NA/contraindicated Pharm contraindication: low risk/ambulating Lines/Catheters IV Catheter Type (from [facility]): Peripheral IV Assessment/Plan Assessment/Plan Hospital Course 1. Chronic hydradenitis suppurativa with Scrotal abscess/buttock 3. Diabetes mellitus type 2, 4. Anemia likely aocd 5. hypertension, 6. Hx of numerous perianal, bilateral inguinal abscesses and I and D of them, 7. Dyslipidemia 8. Current every day smoker 9. History of coronary artery disease, Assessment/Plan - cw vancomycin/meropenam - wpund cullture - wound care - iv fluids - fu Dr Chris dennison - General surgery Dr Martinez consult - cw ASA/Linsopril/fenofibrate/lovenox -GI proph. Protonix -pain control Result Diagram: 02/15/19 0426 02/15/19 0426 Results 24hrs Laboratory Tests Test 02/14/19 17:29 02/14/19 21:04 02/15/19 04:26 02/15/19 08:20 Bedside Glucose 117 104 105 White Blood Count 8.3 Red Blood Count 3.12 L Hemoglobin 8.0 L Hematocrit 26.3 L Mean Corpuscular Volume 84.3 Mean Corpuscular 25.6 L Hemoglobin Mean Corpuscular 30.4 L Hemoglobin Concent Red Cell Distribution 18.7 H Width Platelet Count 235 Mean Platelet Volume 10.2 Immature Granulocytes % 0.400 Neutrophils % 78.7 H Lymphocytes % 14.9 L Monocytes % 5.0 Eosinophils % 0.6 Basophils % 0.4 Nucleated Red Blood 0.0 Cells % Immature Granulocytes # 0.030 Neutrophils # 6.5 Lymphocytes # 1.2 Monocytes # 0.4 Eosinophils # 0.1 Basophils # 0.0 Nucleated Red Blood 0.0 Cells # Sodium Level 137 Potassium Level 4.3 Chloride Level 107 Carbon Dioxide Level 25 Anion Gap 5 Blood Urea Nitrogen 12 Creatinine 0.57 L Est Glomerular Filtrat > 60 Rate mL/min Glucose Level 102 Hemoglobin A1c 5.7 Lactic Acid Level 1.7 Calcium Level 7.4 L Test 02/15/19 12:30 Bedside Glucose 110 Subjective 24 Hr Interval Summary Free Text/Dictation Pt was seen by urology and ID Started on meropenam pain Exam/Review of Systems Exam Vitals Vital Signs Date Temp Pulse Resp B/P (MAP) Pulse Ox O2 O2 Flow FiO2 Time Delivery Rate 02/15/19 97.7 77 16 113/54 98 Room Air 14:03 (73) Intake and Output 02/14/19 02/14/19 02/15/19 1515:00 23:00 07:00 IntakeIntake Total 1170 ml 1190 ml 450 ml OutputOutput Total 500 ml 300 ml 500 ml BalanceBalance 670 ml 890 ml -50 ml Exam HEENT: Within normal limits. NECK: Supple. LYMPH NODES: None palpable. CHEST: Decreased breath sounds at the bases. HEART: Without murmur or gallop. ABDOMEN: Soft, EXTREMITIES: Without cyanosis, clubbing or edema. GENITOURINARY: There is purulent drainage from the left scrotum without crepitus. There is some fluctuance over the scrotum. multiple b/l buttock lesions ABDOMEN: Soft and nontender. There is no brawny edema Results Results 24hrs Laboratory Tests Test 02/14/19 17:29 02/14/19 21:04 02/15/19 04:26 02/15/19 08:20 Bedside Glucose 117 104 105 White Blood Count 8.3 Red Blood Count 3.12 L Hemoglobin 8.0 L Hematocrit 26.3 L Mean Corpuscular Volume 84.3 Mean Corpuscular 25.6 L Hemoglobin Mean Corpuscular 30.4 L Hemoglobin Concent Red Cell Distribution 18.7 H Width Platelet Count 235 Mean Platelet Volume 10.2 Immature Granulocytes % 0.400 Neutrophils % 78.7 H Lymphocytes % 14.9 L Monocytes % 5.0 Eosinophils % 0.6 Basophils % 0.4 Nucleated Red Blood 0.0 Cells % Immature Granulocytes # 0.030 Neutrophils # 6.5 Lymphocytes # 1.2 Monocytes # 0.4 Eosinophils # 0.1 Basophils # 0.0 Nucleated Red Blood 0.0 Cells # Sodium Level 137 Potassium Level 4.3 Chloride Level 107 Carbon Dioxide Level 25 Anion Gap 5 Blood Urea Nitrogen 12 Creatinine 0.57 L Est Glomerular Filtrat > 60 Rate mL/min Glucose Level 102 Hemoglobin A1c 5.7 Lactic Acid Level 1.7 Calcium Level 7.4 L Test 02/15/19 12:30 Bedside Glucose 110 Medications Medication Current Medications Sodium Chloride 1,000 ml @ 50 mls/hr Q20H IV Last administered on 02/15/19at 02:12; Admin Dose 50 MLS/HR; Start 02/14/19 at 05:00 Tramadol HCl (Ultram) 50 mg Q6H PRN PO MODERATE PAIN LEVEL 4-6; Start 02/14/19 at 05:00 Morphine Sulfate (morphine) 2 mg Q4H PRN IV SEVERE PAIN LEVEL 7-10 Last administered on 02/15/19at 02:11; Admin Dose 2 MG; Start 02/14/19 at 05:00 Acetaminophen (Tylenol Tab) 650 mg Q6H PRN PO MILD PAIN(1-3)OR ELEVATED TEMP; Start 02/14/19 at 05:00 Pantoprazole (Protonix Tab) 40 mg DAILY@06 PO Last administered on 02/15/19at 05:49; Admin Dose 40 MG; Start 02/14/19 at 06:00 Enoxaparin Sodium (Lovenox) 40 mg DAILY SC Last administered on 02/15/19at 08:23; Admin Dose 40 MG; Start 02/14/19 at 09:00 Vancomycin HCl (Vanco Iv Per Pharmacy) VANCOMYCIN PER PHARMACY PER PROTOCOL XX ; Start 02/14/19 at 05:00 Vancomycin HCl 250 ml @ 125 mls/hr Q12H IVPB Last administered on 02/15/19at 13:45; Admin Dose 125 MLS/HR; Start 02/14/19 at 13:00 Diagnostic Test (Pha) (Accu-Chek) 1 ea 02 XX ; Start 02/15/19 at 02:00 Insulin Aspart (Novolog Insulin Pen) NOVOLOG *MODERATE* ALGORITHM WITH MEALS BEDTIME SC Last administered on 02/14/19at 12:14; Admin Dose 2 UNIT; Start 02/14/19 at 08:00 Miscellaneous Information 1 ea NOTE XX ; Start 02/14/19 at 06:30 Glucose (Glutose) 15 gm Q15M PRN PO DECREASED GLUCOSE; Start 02/14/19 at 06:30 Glucose (Glutose) 22.5 gm Q15M PRN PO DECREASED GLUCOSE; Start 02/14/19 at 06:30 Dextrose (D50w Syringe) 25 ml Q15M PRN IV DECREASED GLUCOSE; Start 02/14/19 at 06:30 Dextrose (D50w Syringe) 50 ml Q15M PRN IV DECREASED GLUCOSE; Start 02/14/19 at 06:30 Glucagon (Glucagen) 1 mg Q15M PRN IM DECREASED GLUCOSE; Start 02/14/19 at 06:30 Glucose (Glutose) 15 gm Q15M PRN BUCCAL DECREASED GLUCOSE; Start 02/14/19 at 06:30 Aspirin (Halfprin) 81 mg DAILY PO Last administered on 02/15/19at 08:22; Admin Dose 81 MG; Start 02/14/19 at 10:00 Fenofibrate (Tricor) 145 mg DAILY PO Last administered on 02/15/19 08:22; Admin Dose 145 MG; Start 02/14/19 at 10:30 Ferrous Sulfate (Ferrous Sulfate (Ec)) 325 mg BID PO Last administered on 02/15/19 08:22; Admin Dose 325 MG; Start 02/14/19 at 10:30 Lisinopril (Zestril) 5 mg DAILY PO Last administered on 02/15/19at 08:23; Admin Dose 5 MG; Start 02/14/19 at 10:30 Meropenem/Sodium Chloride 50 ml @ 100 mls/hr Q12 IVPB Last administered on 02/15/19at 12:56; Admin Dose 100 MLS/HR; Start 02/15/19 at 13:00 Miscellaneous Information (*Rx Drug Level Order Reminder*) 1 0000 ONCE XX ; Start 02/16/19 at 00:00; Stop 02/16/19 at 00:01 LILIANE HOBBS MD Feb 15, 2019 14:45
--- NOTE | 2019-02-15 15:40 | CONS ---
Assessment/Plan Assessment/Plan Hospital Course (Demo Recall) Alert looks comfortable no fevers blood cultures negative MRSA negative WBC 8.3 platelets 235 neutrophils 78.7 BUN 12 creatinine 0.57 Allergies penicillin Antimicrobials: Vanco Merrem Physical examination: Well-nourished well-developed elderly man who isin no distress. Head atraumatic normocephalic sclera nonicteric neck is supple chest rise symmetrical breath sounds clear heart: S1-S2 abdomen soft bowel sounds present extremities no cyanosis Assessment: 1. Recurrent hidradenitis suppurtiva of bilateral groins and perineum, status post multiple debridement in the past and leukocytosis secondary to #1 2. Diabetes 3. Hypertension 4. Coronary artery disease Plan: Stable, continue antibiotics, follow drainage culture, surgical recommendations Consultation Date/Type/Reason Admit Date/Time Feb 14, 2019 at 14:15 Initial Consult Date 02/14/19 Type of Consult id Requesting Provider: TAMARA SMITH MD Date/Time of Note DATE: 02/15/19 TIME: 15:39 Exam/Review of Systems Exam Vitals Vital Signs Date Temp Pulse Resp B/P (MAP) Pulse Ox O2 O2 Flow FiO2 Time Delivery Rate 02/15/19 97.7 77 16 113/54 98 Room Air 14:03 (73) Intake and Output 02/14/19 02/14/19 02/15/19 1515:00 23:00 07:00 IntakeIntake Total 1170 ml 1190 ml 450 ml OutputOutput Total 500 ml 300 ml 500 ml BalanceBalance 670 ml 890 ml -50 ml Results Result Diagram: 02/15/19 0426 02/15/19 0426 Results 24hrs Laboratory Tests Test 02/14/19 17:29 02/14/19 21:04 02/15/19 04:26 02/15/19 08:20 Bedside Glucose 117 104 105 White Blood Count 8.3 Red Blood Count 3.12 L Hemoglobin 8.0 L Hematocrit 26.3 L Mean Corpuscular Volume 84.3 Mean Corpuscular 25.6 L Hemoglobin Mean Corpuscular 30.4 L Hemoglobin Concent Red Cell Distribution 18.7 H Width Platelet Count 235 Mean Platelet Volume 10.2 Immature Granulocytes % 0.400 Neutrophils % 78.7 H Lymphocytes % 14.9 L Monocytes % 5.0 Eosinophils % 0.6 Basophils % 0.4 Nucleated Red Blood 0.0 Cells % Immature Granulocytes # 0.030 Neutrophils # 6.5 Lymphocytes # 1.2 Monocytes # 0.4 Eosinophils # 0.1 Basophils # 0.0 Nucleated Red Blood 0.0 Cells # Sodium Level 137 Potassium Level 4.3 Chloride Level 107 Carbon Dioxide Level 25 Anion Gap 5 Blood Urea Nitrogen 12 Creatinine 0.57 L Est Glomerular Filtrat > 60 Rate mL/min Glucose Level 102 Hemoglobin A1c 5.7 Lactic Acid Level 1.7 Calcium Level 7.4 L Test 02/15/19 12:30 Bedside Glucose 110 Medications Medication Current Medications Sodium Chloride 1,000 ml @ 50 mls/hr Q20H IV Last administered on 02/15/19at 02:12; Admin Dose 50 MLS/HR; Start 02/14/19 at 05:00 Tramadol HCl (Ultram) 50 mg Q6H PRN PO MODERATE PAIN LEVEL 4-6; Start 02/14/19 at 05:00 Morphine Sulfate (morphine) 2 mg Q4H PRN IV SEVERE PAIN LEVEL 7-10 Last administered on 02/15/19at 02:11; Admin Dose 2 MG; Start 02/14/19 at 05:00 Acetaminophen (Tylenol Tab) 650 mg Q6H PRN PO MILD PAIN(1-3)OR ELEVATED TEMP; Start 02/14/19 at 05:00 Pantoprazole (Protonix Tab) 40 mg DAILY@06 PO Last administered on 02/15/19at 05:49; Admin Dose 40 MG; Start 02/14/19 at 06:00 Enoxaparin Sodium (Lovenox) 40 mg DAILY SC Last administered on 02/15/19at 08:23; Admin Dose 40 MG; Start 02/14/19 at 09:00 Vancomycin HCl (Vanco Iv Per Pharmacy) VANCOMYCIN PER PHARMACY PER PROTOCOL XX ; Start 02/14/19 at 05:00 Vancomycin HCl 250 ml @ 125 mls/hr Q12H IVPB Last administered on 02/15/19at 13:45; Admin Dose 125 MLS/HR; Start 02/14/19 at 13:00 Diagnostic Test (Pha) (Accu-Chek) XX ; Start 02/15/19 at 02:00 Insulin Aspart (Novolog Insulin Pen) NOVOLOG *MODERATE* ALGORITHM WITH MEALS BEDTIME SC Last administered on 02/14/19at 12:14; Admin Dose 2 UNIT; Start 02/14/19 at 08:00 Miscellaneous Information 1 ea NOTE XX ; Start 02/14/19 at 06:30 Glucose (Glutose) 15 gm Q15M PRN PO DECREASED GLUCOSE; Start 02/14/19 at 06:30 Glucose (Glutose) 22.5 gm Q15M PRN PO DECREASED GLUCOSE; Start 02/14/19 at 06:30 Dextrose (D50w Syringe) 25 ml Q15M PRN IV DECREASED GLUCOSE; Start 02/14/19 at 06:30 Dextrose (D50w Syringe) 50 ml Q15M PRN IV DECREASED GLUCOSE; Start 02/14/19 at 06:30 Glucagon (Glucagen) 1 mg Q15M PRN IM DECREASED GLUCOSE; Start 02/14/19 at 06:30 Glucose (Glutose) 15 gm Q15M PRN BUCCAL DECREASED GLUCOSE; Start 02/14/19 at 06:30 Aspirin (Halfprin) 81 mg DAILY PO Last administered on 02/15/19at 08:22; Admin Dose 81 MG; Start 02/14/19 at 10:00 Fenofibrate (Tricor) 145 mg DAILY PO Last administered on 02/15/19at 08:22; Admin Dose 145 MG; Start 02/14/19 at 10:30 Ferrous Sulfate (Ferrous Sulfate (Ec)) 325 mg BID PO Last administered on 02/15/19at 08:22; Admin Dose 325 MG; Start 02/14/19 at 10:30 Lisinopril (Zestril) 5 mg DAILY PO Last administered on 02/15/19at 08:23; Admin Dose 5 MG; Start 02/14/19 at 10:30 Meropenem/Sodium Chloride 50 ml @ 100 mls/hr Q12 IVPB Last administered on 02/15/19at 12:56; Admin Dose 100 MLS/HR; Start 02/15/19 at 13:00 Miscellaneous Information (*Rx Drug Level Order Reminder*) 1 0000 ONCE XX ; Start 02/16/19 at 00:00; Stop 02/16/19 at 00:01 EZIO LUEVANO NP Feb 15, 2019 15:40
[2019-02-15 19:32] VITALS: BP 124/58; PULSE 78; RESP 20
[2019-02-16] MEDS: VANCOMYCIN 1 GM 250 ML IVPB SCH ×2 (01:57→12:42)
[2019-02-16] MEDS: ACCU-CHEK XX SCH (02:00)
[2019-02-16 02:05] VITALS: BP 116/55; PULSE 69; RESP 18
[2019-02-16] MEDS: SOD CHLORIDE 0.9% 1,000 ML IV SCH (05:09)
[2019-02-16] MEDS: PANTOPRAZOLE (EC) 40 MG TAB PO SCH (05:09)
[2019-02-16 07:18] VITALS: BP 130/60; PULSE 80; RESP 18
[2019-02-16] MEDS: INSULIN ASPART [NOVOLOG] 3 ML PEN SC SCH ×4 (07:50→20:38)
[2019-02-16] MEDS: FENOFIBRATE 145 MG TAB PO SCH (08:24)
[2019-02-16] MEDS: FERROUS SULFATE (EC) 325 MG TAB PO SCH ×2 (08:24→20:25)
[2019-02-16] MEDS: LISINOPRIL 5 MG TAB PO SCH (08:24)
[2019-02-16] MEDS: ENOXAPARIN 40 MG/0.4 ML SYG SC SCH (08:24)
[2019-02-16] MEDS: MEROPENEM 1 GM/50ML(PMX) 50 ML IVPB SCH ×2 (08:24→20:25)
[2019-02-16] MEDS: ASPIRIN (EC) 81 MG TAB PO SCH (08:24)
--- NOTE | 2019-02-16 09:52 | CONS ---
Assessment/Plan Assessment/Plan Hospital Course (Demo Recall) 1. Bilateral inguinal and buttock hidradenitis suppurativa s/p multiple I&Ds; spontaneously draining -urology input noted -antibiotics per sensis>per ID -wound care -kpad to promote abscess drainage> monitor -off loading -nutrition optimization -vit c 2. Hypochromic anemia -monitor and tx as needed 3. Lactic acidosis: resolved 4. Hypertension. -diet and medication control. 4. Diabetes. -Continue diet and medication control. 5. Hypercholesterolemia. -Continue diet and medication control. Thank you. Patient seen and examined in collaboration with Dr. Kevin Martinez. Consultation Date/Type/Reason Admit Date/Time Feb 14, 2019 at 14:15 Date/Time of Note DATE: 02/16/19 TIME: 09:32 Hx of Present Illness is a 63-year-old man who is known to our service from previous hospitalizations with past medical history of diabetes, CAD, hypertension, hidradenitis suppurativa with multiple abscesses status post incision and drainage who presents once again to the ED with complaints of drainage from perineal area with associated redness and swelling. Drainage from area is foul-smelling. No associated fevers, chills, labored breathing, dysuria, change in bowel or bladder habits, neurologic symptoms, rash. Ultrasound of the scrotum showed right groin abscess. Laboratory findings were unremarkable. He was seen by infectious disease specialist and placed on antibiotic therapy. General surgery was asked to evaluate. 12 point review of systems was performed and is negative except as stated in HPI. Past Medical History Medical History: coronary artery disease, diabetes, hypertension Home Meds Reported Medications Mupirocin* (Bactroban*) 2% -22 Gram Oint...g., 1 APPLIC TOP TID, #1 TUB SITE OF APPLICATION: 07/16/18 Fenofibrate Nanocrystallized* (Fenofibrate*) 145 Mg Tablet, 145 MG PO DAILY, TAB 07/16/18 Metformin Hcl* (Metformin Hcl*) 500 Mg Tablet, 500 MG PO WITH BREAKFAST DINNE, #60 TAB 07/16/18 Aspirin* (Aspirin* EC) 81 Mg Tablet.dr, 81 MG PO DAILY, TAB 07/16/18 Ferrous Sulfate* (Ferrous Sulfate*) 325 Mg Tabec, 325 MG PO BID, TAB 11/1/18 Lisinopril* (Lisinopril*) 5 Mg Tablet, 5 MG PO DAILY, #30 TAB 07/16/18 Medications Current Medications Sodium Chloride 1,000 ml @ 50 mls/hr Q20H IV Last administered on 02/16/19at 05:09; Admin Dose 50 MLS/HR; Start 02/14/19 at 05:00 Tramadol HCl (Ultram) 50 mg Q6H PRN PO MODERATE PAIN LEVEL 4-6; Start 02/14/19 at 05:00 Morphine Sulfate (morphine) 2 mg Q4H PRN IV SEVERE PAIN LEVEL 7-10 Last administered on 02/15/19at 19:32; Admin Dose 2 MG; Start 02/14/19 at 05:00 Acetaminophen (Tylenol Tab) 650 mg Q6H PRN PO MILD PAIN(1-3)OR ELEVATED TEMP; Start 02/14/19 at 05:00 Pantoprazole (Protonix Tab) 40 mg DAILY@06 PO Last administered on 02/16/19at 05:09; Admin Dose 40 MG; Start 02/14/19 at 06:00 Enoxaparin Sodium (Lovenox) 40 mg DAILY SC Last administered on 02/16/19at 08:24; Admin Dose 40 MG; Start 02/14/19 at 09:00 Vancomycin HCl (Vanco Iv Per Pharmacy) VANCOMYCIN PER PHARMACY PER PROTOCOL XX ; Start 02/14/19 at 05:00 Vancomycin HCl 250 ml @ 125 mls/hr Q12H IVPB Last administered on 02/16/19at 01:57; Admin Dose 125 MLS/HR; Start 02/14/19 at 13:00 Diagnostic Test (Pha) (Accu-Chek) 1 ea 02 XX ; Start 02/15/19 at 02:00 Insulin Aspart (Novolog Insulin Pen) NOVOLOG *MODERATE* ALGORITHM WITH MEALS BEDTIME SC Last administered on 02/14/19at 12:14; Admin Dose 2 UNIT; Start 02/14/19 at 08:00 Miscellaneous Information 1 ea NOTE XX ; Start 02/14/19 at 06:30 Glucose (Glutose) 15 gm Q15M PRN PO DECREASED GLUCOSE; Start 02/14/19 at 06:30 Glucose (Glutose) 22.5 gm Q15M PRN PO DECREASED GLUCOSE; Start 02/14/19 at 06:30 Dextrose (D50w Syringe) 25 ml Q15M PRN IV DECREASED GLUCOSE; Start 02/14/19 at 06:30 Dextrose (D50w Syringe) 50 ml Q15M PRN IV DECREASED GLUCOSE; Start 02/14/19 at 06:30 Glucagon (Glucagen) 1 mg Q15M PRN IM DECREASED GLUCOSE; Start 02/14/19 at 06:30 Glucose (Glutose) 15 gm Q15M PRN BUCCAL DECREASED GLUCOSE; Start 02/14/19 at 06:30 Aspirin (Halfprin) 81 mg DAILY PO Last administered on 02/16/19 08:24; Admin Dose 81 MG; Start 02/14/19 at 10:00 Fenofibrate (Tricor) 145 mg DAILY PO Last administered on 02/16/19 08:24; Admin Dose 145 MG; Start 02/14/19 at 10:30 Ferrous Sulfate (Ferrous Sulfate (Ec)) 325 mg BID PO Last administered on 02/16/19 08:24; Admin Dose 325 MG; Start 02/14/19 at 10:30 Lisinopril (Zestril) 5 mg DAILY PO Last administered on 02/16/19 08:24; Admin Dose 5 MG; Start 02/14/19 at 10:30 Meropenem/Sodium Chloride 50 ml @ 100 mls/hr Q12 IVPB Last administered on 02/16/19 08:24; Admin Dose 100 MLS/HR; Start 02/15/19 at 13:00 Allergies: Coded Allergies: Penicillins (Verified Allergy, Severe, ANAPHYLACTIC SHOCK, 07/16/18) Past Surgical History Past Surgical Hx: other (multiple I and D in past hydraadenitis suppurativa) Family History Significant Family History: no pertinent family hx Social History Smoking Status: Current every day smoker Exam/Review of Systems Exam Vitals Vital Signs Date Temp Pulse Resp B/P (MAP) Pulse Ox O2 O2 Flow FiO2 Time Delivery Rate 02/16/19 98.0 80 18 130/60 18 Room Air 07:18 (83) Intake and Output 02/15/19 02/15/19 02/16/19 1515:00 23:00 07:00 IntakeIntake Total 1300 ml 500 ml OutputOutput Total 1050 ml 550 ml BalanceBalance 250 ml 500 ml -550 ml Constitutional: alert, oriented, frail Psych: nl mood/affect, anxiety (Minimal) Head: normocephalic, atraumatic Eyes: nl conjunctiva, EOMI, nl lids, nl sclera ENMT: nl external ears & nose, nl lips & teeth, mucosa pink and moist Neck: supple, non-tender; No jvd Respiratory: normal air movement; No congested cough Cardiovascular: regular rate and rhythm; No edema Gastrointestinal: soft, non-tender; No ascites Genitourinary - Male: nl penis, other (Scrotal swelling, erythema; bilateral groin: Draining areas with malodorous purulent drainage) Musculoskeletal: nl extremities to inspection Extremities: normal pulses Neurological: nl mental status, nl speech, other; No nl strength (gen weakness) Skin: nl turgor; No rash or lesions Results Result Diagram: 02/16/1952502/16/19525 Results 24hrs Laboratory Tests Test 02/15/19 12:30 02/15/19 17:41 02/15/19 20:15 02/16/19 00:49 Bedside Glucose 110 116 172 Vancomycin Level Trough 12.2 Test 02/16/19 05:26 02/16/19 07:49 White Blood Count 9.5 Red Blood Count 3.07 L Hemoglobin 7.9 L Hematocrit 26.0 L Mean Corpuscular Volume 84.7 Mean Corpuscular 25.7 L Hemoglobin Mean Corpuscular 30.4 L Hemoglobin Concent Red Cell Distribution 18.9 H Width Platelet Count 314 # Mean Platelet Volume 9.0 Immature Granulocytes % 0.500 H Neutrophils % 80.5 H Lymphocytes % 13.9 L Monocytes % 4.6 Eosinophils % 0.3 Basophils % 0.2 Nucleated Red Blood 0.0 Cells % Immature Granulocytes # 0.050 H Neutrophils # 7.6 H Lymphocytes # 1.3 Monocytes # 0.4 Eosinophils # 0.0 Basophils # 0.0 Nucleated Red Blood 0.0 Cells # Sodium Level 137 Potassium Level 4.2 Chloride Level 106 Carbon Dioxide Level 27 Anion Gap 4 L Blood Urea Nitrogen 10 Creatinine 0.57 L Est Glomerular Filtrat > 60 Rate mL/min Glucose Level 99 Calcium Level 7.4 L Phosphorus Level 2.9 Magnesium Level 1.7 Bedside Glucose 113 Medications Medication Current Medications Sodium Chloride 1,000 ml @ 50 mls/hr Q20H IV Last administered on 02/16/19at 05:09; Admin Dose 50 MLS/HR; Start 02/14/19 at 05:00 Tramadol HCl (Ultram) 50 mg Q6H PRN PO MODERATE PAIN LEVEL 4-6; Start 02/14/19 at 05:00 Morphine Sulfate (morphine) 2 mg Q4H PRN IV SEVERE PAIN LEVEL 7-10 Last administered on 02/15/19at 19:32; Admin Dose 2 MG; Start 02/14/19 at 05:00 Acetaminophen (Tylenol Tab) 650 mg Q6H PRN PO MILD PAIN(1-3)OR ELEVATED TEMP; Start 02/14/19 at 05:00 Pantoprazole (Protonix Tab) 40 mg DAILY@06 PO Last administered on 02/16/19at 05:09; Admin Dose 40 MG; Start 02/14/19 at 06:00 Enoxaparin Sodium (Lovenox) 40 mg DAILY SC Last administered on 02/16/19at 08:24; Admin Dose 40 MG; Start 02/14/19 at 09:00 Vancomycin HCl (Vanco Iv Per Pharmacy) VANCOMYCIN PER PHARMACY PER PROTOCOL XX ; Start 02/14/19 at 05:00 Vancomycin HCl 250 ml @ 125 mls/hr Q12H IVPB Last administered on 02/16/19at 01:57; Admin Dose 125 MLS/HR; Start 02/14/19 at 13:00 Diagnostic Test (Pha) (Accu-Chek) 1 ea 02 XX ; Start 02/15/19 at 02:00 Insulin Aspart (Novolog Insulin Pen) NOVOLOG *MODERATE* ALGORITHM WITH MEALS BEDTIME SC Last administered on 02/14/19at 12:14; Admin Dose 2 UNIT; Start 02/14/19 at 08:00 Miscellaneous Information 1 ea NOTE XX ; Start 02/14/19 at 06:30 Glucose (Glutose) 15 gm Q15M PRN PO DECREASED GLUCOSE; Start 02/14/19 at 06:30 Glucose (Glutose) 22.5 gm Q15M PRN PO DECREASED GLUCOSE; Start 02/14/19 at 06:30 Dextrose (D50w Syringe) 25 ml Q15M PRN IV DECREASED GLUCOSE; Start 02/14/19 at 06:30 Dextrose (D50w Syringe) 50 ml Q15M PRN IV DECREASED GLUCOSE; Start 02/14/19 at 06:30 Glucagon (Glucagen) 1 mg Q15M PRN IM DECREASED GLUCOSE; Start 02/14/19 at 06:30 Glucose (Glutose) 15 gm Q15M PRN BUCCAL DECREASED GLUCOSE; Start 02/14/19 at 06:30 Aspirin (Halfprin) 81 mg DAILY PO Last administered on 02/16/19 08:24; Admin Dose 81 MG; Start 02/14/19 at 10:00 Fenofibrate (Tricor) 145 mg DAILY PO Last administered on 02/16/19 08:24; Admin Dose 145 MG; Start 02/14/19 at 10:30 Ferrous Sulfate (Ferrous Sulfate (Ec)) 325 mg BID PO Last administered on 02/16/19 08:24; Admin Dose 325 MG; Start 02/14/19 at 10:30 Lisinopril (Zestril) 5 mg DAILY PO Last administered on 02/16/19 08:24; Admin Dose 5 MG; Start 02/14/19 at 10:30 Meropenem/Sodium Chloride 50 ml @ 100 mls/hr Q12 IVPB Last administered on 02/16/19 08:24; Admin Dose 100 MLS/HR; Start 02/15/19 at 13:00 ALEXANDRA MUNOZ NP Feb 16, 2019 09:43
[2019-02-16 14:03] VITALS: BP 111/58; PULSE 83; RESP 16
--- NOTE | 2019-02-16 14:46 | PN ---
Date/Time of Note Date/Time of Note DATE: 02/16/19 TIME: 14:43 Assessment/Plan VTE Prophylaxis Risk score (from Ns)>0 risk: 6 SCD applied (from [facility] [place]): No SCD contraindicated: low risk/ambulating Pharmacological prophylaxis: NA/contraindicated Pharm contraindication: low risk/ambulating Lines/Catheters IV Catheter Type (from [facility]): Peripheral IV Assessment/Plan Assessment/Plan Hospital Course 1. Bilateral inguinal and buttock hidradenitis suppurativa s/p multiple I&Ds; spontaneously draining 3. Diabetes mellitus type 2, 4. Anemia likely aocd 5. hypertension, 6. Hx of numerous perianal, bilateral inguinal abscesses and I and D of them, 7. Dyslipidemia 8. Current every day smoker 9. History of coronary artery disease, Assessment/Plan - cw vancomycin/meropenam - wound cullture +multiple organisms - fu SURGERY recs> per Dr Martinez> self draining - wound care - fu Dr Perez recs - cw ASA/Linsopril/fenofibrate/lovenox -GI proph. Protonix -pain control Result Diagram: 02/16/1952502/16/19 05 Results 24hrs Laboratory Tests Test 02/15/19 17:41 02/15/19 20:15 02/16/19 00:49 02/16/19 05:26 Bedside Glucose 116 172 Vancomycin Level Trough 12.2 White Blood Count 9.5 Red Blood Count 3.07 L Hemoglobin 7.9 L Hematocrit 26.0 L Mean Corpuscular Volume 84.7 Mean Corpuscular 25.7 L Hemoglobin Mean Corpuscular 30.4 L Hemoglobin Concent Red Cell Distribution 18.9 H Width Platelet Count 314 # Mean Platelet Volume 9.0 Immature Granulocytes % 0.500 H Neutrophils % 80.5 H Lymphocytes % 13.9 L Monocytes % 4.6 Eosinophils % 0.3 Basophils % 0.2 Nucleated Red Blood 0.0 Cells % Immature Granulocytes # 0.050 H Neutrophils # 7.6 H Lymphocytes # 1.3 Monocytes # 0.4 Eosinophils # 0.0 Basophils # 0.0 Nucleated Red Blood 0.0 Cells # Sodium Level 137 Potassium Level 4.2 Chloride Level 106 Carbon Dioxide Level 27 Anion Gap 4 L Blood Urea Nitrogen 10 Creatinine 0.57 L Est Glomerular Filtrat > 60 Rate mL/min Glucose Level 99 Calcium Level 7.4 L Phosphorus Level 2.9 Magnesium Level 1.7 Test 02/16/19 07:49 02/16/19 12:13 Bedside Glucose 113 128 Subjective 24 Hr Interval Summary Free Text/Dictation Abscesses are self draining. No fevers Exam/Review of Systems Exam Vitals Vital Signs Date Temp Pulse Resp B/P (MAP) Pulse Ox O2 O2 Flow FiO2 Time Delivery Rate 02/16/19 98.6 83 16 111/58 99 Room Air 14:03 (75) Intake and Output 02/15/19 02/15/19 02/16/19 1515:00 23:00 07:00 IntakeIntake Total 1300 ml 500 ml OutputOutput Total 1050 ml 550 ml BalanceBalance 250 ml 500 ml -550 ml Exam HEENT: Within normal limits. NECK: Supple. LYMPH NODES: None palpable. CHEST: Decreased breath sounds at the bases. HEART: Without murmur or gallop. ABDOMEN: Soft, EXTREMITIES: Without cyanosis, clubbing or edema. GENITOURINARY: There is purulent drainage from the left scrotum without crepitus. There is some fluctuance over the scrotum. multiple b/l buttock lesions ABDOMEN: Soft and nontender. There is no brawny edema Results Results 24hrs Laboratory Tests Test 02/15/19 17:41 02/15/19 20:15 02/16/19 00:49 02/16/19 05:26 Bedside Glucose 116 172 Vancomycin Level Trough 12.2 White Blood Count 9.5 Red Blood Count 3.07 L Hemoglobin 7.9 L Hematocrit 26.0 L Mean Corpuscular Volume 84.7 Mean Corpuscular 25.7 L Hemoglobin Mean Corpuscular 30.4 L Hemoglobin Concent Red Cell Distribution 18.9 H Width Platelet Count 314 # Mean Platelet Volume 9.0 Immature Granulocytes % 0.500 H Neutrophils % 80.5 H Lymphocytes % 13.9 L Monocytes % 4.6 Eosinophils % 0.3 Basophils % 0.2 Nucleated Red Blood 0.0 Cells % Immature Granulocytes # 0.050 H Neutrophils # 7.6 H Lymphocytes # 1.3 Monocytes # 0.4 Eosinophils # 0.0 Basophils # 0.0 Nucleated Red Blood 0.0 Cells # Sodium Level 137 Potassium Level 4.2 Chloride Level 106 Carbon Dioxide Level 27 Anion Gap 4 L Blood Urea Nitrogen 10 Creatinine 0.57 L Est Glomerular Filtrat > 60 Rate mL/min Glucose Level 99 Calcium Level 7.4 L Phosphorus Level 2.9 Magnesium Level 1.7 Test 02/16/19 07:49 02/16/19 12:13 Bedside Glucose 113 128 Medications Medication Current Medications Sodium Chloride 1,000 ml @ 50 mls/hr Q20H IV Last administered on 02/16/19at 05:09; Admin Dose 50 MLS/HR; Start 02/14/19 at 05:00 Tramadol HCl (Ultram) 50 mg Q6H PRN PO MODERATE PAIN LEVEL 4-6; Start 02/14/19 at 05:00 Morphine Sulfate (morphine) 2 mg Q4H PRN IV SEVERE PAIN LEVEL 7-10 Last administered on 02/15/19at 19:32; Admin Dose 2 MG; Start 02/14/19 at 05:00 Acetaminophen (Tylenol Tab) 650 mg Q6H PRN PO MILD PAIN(1-3)OR ELEVATED TEMP; Start 02/14/19 at 05:00 Pantoprazole (Protonix Tab) 40 mg DAILY@06 PO Last administered on 02/16/19at 05:09; Admin Dose 40 MG; Start 02/14/19 at 06:00 Enoxaparin Sodium (Lovenox) 40 mg DAILY SC Last administered on 02/16/19at 08:24; Admin Dose 40 MG; Start 02/14/19 at 09:00 Vancomycin HCl (Vanco Iv Per Pharmacy) VANCOMYCIN PER PHARMACY PER PROTOCOL XX ; Start 02/14/19 at 05:00 Vancomycin HCl 250 ml @ 125 mls/hr Q12H IVPB Last administered on 02/16/19at 12:42; Admin Dose 125 MLS/HR; Start 02/14/19 at 13:00 Diagnostic Test (Pha) (Accu-Chek) 1 ea 02 XX ; Start 02/15/19 at 02:00 Insulin Aspart (Novolog Insulin Pen) NOVOLOG *MODERATE* ALGORITHM WITH MEALS BEDTIME SC Last administered on 02/14/19at 12:14; Admin Dose 2 UNIT; Start 02/14/19 at 08:00 Miscellaneous Information 1 ea NOTE XX ; Start 02/14/19 at 06:30 Glucose (Glutose) 15 gm Q15M PRN PO DECREASED GLUCOSE; Start 02/14/19 at 06:30 Glucose (Glutose) 22.5 gm Q15M PRN PO DECREASED GLUCOSE; Start 02/14/19 at 06:30 Dextrose (D50w Syringe) 25 ml Q15M PRN IV DECREASED GLUCOSE; Start 02/14/19 at 06:30 Dextrose (D50w Syringe) 50 ml Q15M PRN IV DECREASED GLUCOSE; Start 02/14/19 at 06:30 Glucagon (Glucagen) 1 mg Q15M PRN IM DECREASED GLUCOSE; Start 02/14/19 at 06:30 Glucose (Glutose) 15 gm Q15M PRN BUCCAL DECREASED GLUCOSE; Start 02/14/19 at 06:30 Aspirin (Halfprin) 81 mg DAILY PO Last administered on 02/16/19 08:24; Admin Dose 81 MG; Start 02/14/19 at 10:00 Fenofibrate (Tricor) 145 mg DAILY PO Last administered on 02/16/19 08:24; Admin Dose 145 MG; Start 02/14/19 at 10:30 Ferrous Sulfate (Ferrous Sulfate (Ec)) 325 mg BID PO Last administered on 02/16/19 08:24; Admin Dose 325 MG; Start 02/14/19 at 10:30 Lisinopril (Zestril) 5 mg DAILY PO Last administered on 02/16/19 08:24; Admin Dose 5 MG; Start 02/14/19 at 10:30 Meropenem/Sodium Chloride 50 ml @ 100 mls/hr Q12 IVPB Last administered on 02/16/19 08:24; Admin Dose 100 MLS/HR; Start 02/15/19 at 13:00 LILIANE HOBBS MD Feb 16, 2019 14:45
--- NOTE | 2019-02-16 15:02 | CONS ---
Assessment/Plan Assessment/Plan Hospital Course (Demo Recall) Alert looks comfortable no fevers Wound culture growing gram-negative rods, gamma hemolytic strep species, blood cultures remain negative MRSA swab negative Allergies penicillin Antimicrobials: Vanco Merrem Physical examination: Well-nourished well-developed elderly man who isin no distress. Head atraumatic normocephalic sclera nonicteric neck is supple chest rise symmetrical breath sounds clear heart: S1-S2 abdomen soft bowel sounds present extremities no cyanosis Assessment: 1. Recurrent hidradenitis suppurativa of bilateral groins and perineum, status post multiple debridement in the past and leukocytosis secondary to #1 2. Diabetes 3. Hypertension 4. Coronary artery disease Plan: Stable, continue antibiotics, follow drainage culture and surgical recommendations Consultation Date/Type/Reason Admit Date/Time Feb 14, 2019 at 14:15 Initial Consult Date 02/14/19 Type of Consult id Requesting Provider: TAMARA SMITH MD Date/Time of Note DATE: 02/16/19 TIME: 15:01 Exam/Review of Systems Exam Vitals Vital Signs Date Temp Pulse Resp B/P (MAP) Pulse Ox O2 O2 Flow FiO2 Time Delivery Rate 02/16/19 98.6 83 16 111/58 99 Room Air 14:03 (75) Intake and Output 02/15/19 02/15/19 02/16/19 1515:00 23:00 07:00 IntakeIntake Total 1300 ml 500 ml OutputOutput Total 1050 ml 550 ml BalanceBalance 250 ml 500 ml -550 ml Results Result Diagram: 02/16/19 0526 02/16/19 0526 Results 24hrs Laboratory Tests Test 02/15/19 17:41 02/15/19 20:15 02/16/19 00:49 02/16/19 05:26 Bedside Glucose 116 172 Vancomycin Level Trough 12.2 White Blood Count 9.5 Red Blood Count 3.07 L Hemoglobin 7.9 L Hematocrit 26.0 L Mean Corpuscular Volume 84.7 Mean Corpuscular 25.7 L Hemoglobin Mean Corpuscular 30.4 L Hemoglobin Concent Red Cell Distribution 18.9 H Width Platelet Count 314 # Mean Platelet Volume 9.0 Immature Granulocytes % 0.500 H Neutrophils % 80.5 H Lymphocytes % 13.9 L Monocytes % 4.6 Eosinophils % 0.3 Basophils % 0.2 Nucleated Red Blood 0.0 Cells % Immature Granulocytes # 0.050 H Neutrophils # 7.6 H Lymphocytes # 1.3 Monocytes # 0.4 Eosinophils # 0.0 Basophils # 0.0 Nucleated Red Blood 0.0 Cells # Sodium Level 137 Potassium Level 4.2 Chloride Level 106 Carbon Dioxide Level 27 Anion Gap 4 L Blood Urea Nitrogen 10 Creatinine 0.57 L Est Glomerular Filtrat > 60 Rate mL/min Glucose Level 99 Calcium Level 7.4 L Phosphorus Level 2.9 Magnesium Level 1.7 Test 02/16/19 07:49 02/16/19 12:13 Bedside Glucose 113 128 Medications Medication Current Medications Tramadol HCl (Ultram) 50 mg Q6H PRN PO MODERATE PAIN LEVEL 4-6; Start 02/14/19 at 05:00 Morphine Sulfate (morphine) 2 mg Q4H PRN IV SEVERE PAIN LEVEL 7-10 Last administered on 02/15/19at 19:32; Admin Dose 2 MG; Start 02/14/19 at 05:00 Acetaminophen (Tylenol Tab) 650 mg Q6H PRN PO MILD PAIN(1-3)OR ELEVATED TEMP; Start 02/14/19 at 05:00 Pantoprazole (Protonix Tab) 40 mg DAILY@06 PO Last administered on 02/16/19at 05:09; Admin Dose 40 MG; Start 02/14/19 at 06:00 Enoxaparin Sodium (Lovenox) 40 mg DAILY SC Last administered on 02/16/19at 08:24; Admin Dose 40 MG; Start 02/14/19 at 09:00 Vancomycin HCl (Vanco Iv Per Pharmacy) VANCOMYCIN PER PHARMACY PER PROTOCOL XX ; Start 02/14/19 at 05:00 Vancomycin HCl 250 ml @ 125 mls/hr Q12H IVPB Last administered on 02/16/19at 12:42; Admin Dose 125 MLS/HR; Start 02/14/19 at 13:00 Diagnostic Test (Pha) (Accu-Chek) 1 ea 02 XX ; Start 02/15/19 at 02:00 Insulin Aspart (Novolog Insulin Pen) NOVOLOG *MODERATE* ALGORITHM WITH MEALS BEDTIME SC Last administered on 02/14/19at 12:14; Admin Dose 2 UNIT; Start 02/14/19 at 08:00 Miscellaneous Information 1 ea NOTE XX ; Start 02/14/19 at 06:30 Glucose (Glutose) 15 gm Q15M PRN PO DECREASED GLUCOSE; Start 02/14/19 at 06:30 Glucose (Glutose) 22.5 gm Q15M PRN PO DECREASED GLUCOSE; Start 02/14/19 at 06:30 Dextrose (D50w Syringe) 25 ml Q15M PRN IV DECREASED GLUCOSE; Start 02/14/19 at 06:30 Dextrose (D50w Syringe) 50 ml Q15M PRN IV DECREASED GLUCOSE; Start 02/14/19 at 06:30 Glucagon (Glucagen) 1 mg Q15M PRN IM DECREASED GLUCOSE; Start 02/14/19 at 06:30 Glucose (Glutose) 15 gm Q15M PRN BUCCAL DECREASED GLUCOSE; Start 02/14/19 at 06:30 Aspirin (Halfprin) 81 mg DAILY PO Last administered on 02/16/19 08:24; Admin Dose 81 MG; Start 02/14/19 at 10:00 Fenofibrate (Tricor) 145 mg DAILY PO Last administered on 02/16/19 08:24; Admin Dose 145 MG; Start 02/14/19 at 10:30 Ferrous Sulfate (Ferrous Sulfate (Ec)) 325 mg BID PO Last administered on 02/16/19 08:24; Admin Dose 325 MG; Start 02/14/19 at 10:30 Lisinopril (Zestril) 5 mg DAILY PO Last administered on 02/16/19 08:24; Admin Dose 5 MG; Start 02/14/19 at 10:30 Meropenem/Sodium Chloride 50 ml @ 100 mls/hr Q12 IVPB Last administered on 02/16/19 08:24; Admin Dose 100 MLS/HR; Start 02/15/19 at 13:00 EZIO LUEVANO NP Feb 16, 2019 15:02
[2019-02-16 19:32] VITALS: BP 121/59; PULSE 82; RESP 17
[2019-02-16] MEDS: morphine 2 MG INJ IV PRN (20:25)
[2019-02-17] MEDS: VANCOMYCIN 1 GM 250 ML IVPB SCH ×2 (01:32→12:20)
[2019-02-17 02:00] VITALS: BP 126/80; PULSE 79; RESP 18
[2019-02-17] MEDS: ACCU-CHEK XX SCH (02:00)
[2019-02-17] MEDS: PANTOPRAZOLE (EC) 40 MG TAB PO SCH (05:57)
[2019-02-17 08:00] VITALS: BP 132/62; PULSE 76; RESP 20
[2019-02-17] MEDS: INSULIN ASPART [NOVOLOG] 3 ML PEN SC SCH ×4 (08:00→21:00)
[2019-02-17] MEDS: MEROPENEM 1 GM/50ML(PMX) 50 ML IVPB SCH ×2 (09:03→20:59)
[2019-02-17] MEDS: FENOFIBRATE 145 MG TAB PO SCH (09:06)
[2019-02-17] MEDS: FERROUS SULFATE (EC) 325 MG TAB PO SCH ×2 (09:07→20:59)
[2019-02-17] MEDS: ASPIRIN (EC) 81 MG TAB PO SCH (09:07)
[2019-02-17] MEDS: ENOXAPARIN 40 MG/0.4 ML SYG SC SCH (09:08)
--- NOTE | 2019-02-17 09:13 | PN ---
Date/Time of Note Date/Time of Note DATE: 02/17/19 TIME: 09:01 Assessment/Plan Lines/Catheters IV Catheter Type (from Nrsg): Peripheral IV Assessment/Plan Chief Complaint/Hosp Course 1. Bilateral inguinal and buttock hidradenitis suppurativa s/p multiple I&Ds; spontaneously draining; manually expressed copious amount of pus> refused further manipulation of the area (repeatedly refused pain medication) -urology input noted -antibiotics per sensis>per ID -wound care -continue kpad to promote abscess drainage -off loading -nutrition optimization -vit c -needs tertiary center/plastics f/u for hidradenitis 2. Hypochromic anemia -monitor and tx as needed 3. Lactic acidosis: resolved 4. Hypertension. -diet and medication control. 4. Diabetes. -Continue diet and medication control. 5. Hypercholesterolemia. -Continue diet and medication control. Thank you. Patient seen and examined in collaboration with Dr. Kevin Martinez. Subjective 24 Hr Interval Summary Continues to have drainage from bilateral groin. No fevers, chills, sob, conges robert cough, cp, palpitations, henry, dizziness, n/v/d/dysuria. Exam/Review of Systems Vital Signs Vitals Vital Signs Date Temp Pulse Resp B/P (MAP) Pulse Ox O2 O2 Flow FiO2 Time Delivery Rate 02/17/19 98.3 79 18 126/80 96 02:00 (95) 02/16/19 Room Air 14:03 Intake and Output 02/16/19 02/16/19 02/17/19 1515:00 23:00 07:00 IntakeIntake Total 1490 ml 410 ml 250 ml OutputOutput Total 600 ml 150 ml BalanceBalance 890 ml 410 ml 100 ml Exam Free Text/Dictation Constitutional: alert, oriented, frail Psych: nl mood/affect, anxiety (Minimal) Head: normocephalic, atraumatic Eyes: nl conjunctiva, EOMI, nl lids, nl sclera ENMT: nl external ears & nose, nl lips & teeth, mucosa pink and moist Neck: supple, non-tender; No jvd Respiratory: normal air movement; No congested cough Cardiovascular: regular rate and rhythm; No edema Gastrointestinal: soft, non-tender; No ascites Genitourinary - Male: nl penis, other (Scrotal swelling, erythema; bilateral groin: Draining areas with malodorous purulent drainage) Musculoskeletal: nl extremities to inspection Extremities: normal pulses Neurological: nl mental status, nl speech, other; No nl strength (gen weakness) Skin: nl turgor; No rash or lesions Results Result Diagram: 02/17/19 0440 02/16/19 0526 ALEXANDRA MUNOZ NP Feb 17, 2019 09:13
[2019-02-17] MEDS: LISINOPRIL 5 MG TAB PO SCH (12:17)
[2019-02-17 14:00] VITALS: BP 128/76; PULSE 84; RESP 20
--- NOTE | 2019-02-17 16:33 | PN ---
Date/Time of Note Date/Time of Note DATE: 02/17/19 TIME: 16:30 Assessment/Plan VTE Prophylaxis Risk score (from Ns)>0 risk: 6 SCD applied (from [facility] [place]): No SCD contraindicated: low risk/ambulating Pharmacological prophylaxis: NA/contraindicated Pharm contraindication: low risk/ambulating Lines/Catheters IV C[facility] Type ([facility] Peripheral IV Assessment/Plan Assessment/Plan 1. Bilateral inguinal and buttock hidradenitis suppurativa s/p multiple I&Ds; spontaneously draining 3. Diabetes mellitus type 2, 4. Anemia likely aocd 5. hypertension, 6. Hx of numerous perianal, bilateral inguinal abscesses and I and D of them, 7. Dyslipidemia 8. Current every day smoker 9. History of coronary artery disease, Assessment/Plan - cw vancomycin/meropenam - wound cullture +multiple organisms - fu SURGERY recs> per Dr Martinez> self draining no surgery currently> will need plastics at [facility] - monitor hb - Will call GI for possible EGD/Colonsopy - wound care - fu Dr Perez recs - cw ASA/Linsopril/fenofibrate/lovenox -GI proph. Protonix -pain control Result Diagram: 02/17/19 0440 02/16/19 0526 Results 24hrs Laboratory Tests Test 02/16/19 17:16 02/16/19 20:36 02/17/19 04:40 02/17/19 08:09 Bedside Glucose 118 157 110 White Blood Count 10.5 Red Blood Count 2.97 L Hemoglobin 7.7 L Hematocrit 25.5 L Mean Corpuscular Volume 85.9 Mean Corpuscular 25.9 L Hemoglobin Mean Corpuscular 30.2 L Hemoglobin Concent Red Cell Distribution 18.6 H Width Platelet Count 304 Mean Platelet Volume 9.1 Immature Granulocytes % 0.700 H Neutrophils % 82.6 H Lymphocytes % 11.2 L Monocytes % 5.0 Eosinophils % 0.3 Basophils % 0.2 Nucleated Red Blood 0.0 Cells % Immature Granulocytes # 0.070 H Neutrophils # 8.7 H Lymphocytes # 1.2 Monocytes # 0.5 Eosinophils # 0.0 Basophils # 0.0 Nucleated Red Blood 0.0 Cells # Test 02/17/19 12:05 Bedside Glucose 161 Subjective 24 Hr Interval Summary Free Text/Dictation PT HAS HAD EXTREME weight loss per sometimes difficulty swallowing Exam/Review of Systems Exam Vitals Vital Signs Date Temp Pulse Resp B/P (MAP) Pulse Ox O2 O2 Flow FiO2 Time Delivery Rate 02/17/19 98.8 84 20 128/76 98 14:00 (93) 02/16/19 Room Air 14:03 Intake and Output 02/16/19 02/16/19 02/17/19 1515:00 23:00 07:00 IntakeIntake Total 1490 ml 410 ml 250 ml OutputOutput Total 600 ml 150 ml BalanceBalance 890 ml 410 ml 100 ml Exam HEENT: Within normal limits. NECK: Supple. LYMPH NODES: None palpable. CHEST: Decreased breath sounds at the bases. HEART: Without murmur or gallop. ABDOMEN: Soft, EXTREMITIES: Without cyanosis, clubbing or edema. GENITOURINARY: There is purulent drainage from the left scrotum without crepitus. There is some fluctuance over the scrotum. multiple b/l buttock lesions ABDOMEN: Soft and nontender. There is no brawny edema Results Results Results 24hrs Laboratory Tests Test 02/16/19 17:16 02/16/19 20:36 02/17/19 04:40 02/17/19 08:09 Bedside Glucose 118 157 110 White Blood Count 10.5 Red Blood Count 2.97 L Hemoglobin 7.7 L Hematocrit 25.5 L Mean Corpuscular Volume 85.9 Mean Corpuscular 25.9 L Hemoglobin Mean Corpuscular 30.2 L Hemoglobin Concent Red Cell Distribution 18.6 H Width Platelet Count 304 Mean Platelet Volume 9.1 Immature Granulocytes % 0.700 H Neutrophils % 82.6 H Lymphocytes % 11.2 L Monocytes % 5.0 Eosinophils % 0.3 Basophils % 0.2 Nucleated Red Blood 0.0 Cells % Immature Granulocytes # 0.070 H Neutrophils # 8.7 H Lymphocytes # 1.2 Monocytes # 0.5 Eosinophils # 0.0 Basophils # 0.0 Nucleated Red Blood 0.0 Cells # Test 02/17/19 12:05 Bedside Glucose 161 Medications Medication Current Medications Tramadol HCl (Ultram) 50 mg Q6H PRN PO MODERATE PAIN LEVEL 4-6; Start 02/14/19 at 05:00 Morphine Sulfate (morphine) 2 mg Q4H PRN IV SEVERE PAIN LEVEL 7-10 Last administered on 02/16/19at 20:25; Admin Dose 2 MG; Start 02/14/19 at 05:00 Acetaminophen (Tylenol Tab) 650 mg Q6H PRN PO MILD PAIN(1-3)OR ELEVATED TEMP; Start 02/14/19 at 05:00 Pantoprazole (Protonix Tab) 40 mg DAILY@06 PO Last administered on 02/17/19at 05:57; Admin Dose 40 MG; Start 02/14/19 at 06:00 Enoxaparin Sodium (Lovenox) 40 mg DAILY SC Last administered on 02/17/19at 09:08; Admin Dose 40 MG; Start 02/14/19 at 09:00 Vancomycin HCl (Vanco Iv Per Pharmacy) VANCOMYCIN PER PHARMACY PER PROTOCOL XX ; Start 02/14/19 at 05:00 Vancomycin HCl 250 ml @ 125 mls/hr Q12H IVPB Last administered on 02/17/19at 12:20; Admin Dose 125 MLS/HR; Start 02/14/19 at 13:00 Diagnostic Test (Pha) (Accu-Chek) 1 ea 02 XX ; Start 02/15/19 at 02:00 Insulin Aspart (Novolog Insulin Pen) NOVOLOG *MODERATE* ALGORITHM WITH MEALS BEDTIME SC Last administered on 02/17/19at 12:18; Admin Dose 2 UNIT; Start 02/14/19 at 08:00 Miscellaneous Information 1 ea NOTE XX ; Start 02/14/19 at 06:30 Glucose (Glutose) 15 gm Q15M PRN PO DECREASED GLUCOSE; Start 02/14/19 at 06:30 Glucose (Glutose) 22.5 gm Q15M PRN PO DECREASED GLUCOSE; Start 02/14/19 at 06:30 Dextrose (D50w Syringe) 25 ml Q15M PRN IV DECREASED GLUCOSE; Start 02/14/19 at 06:30 Dextrose (D50w Syringe) 50 ml Q15M PRN IV DECREASED GLUCOSE; Start 02/14/19 at 06:30 Glucagon (Glucagen) 1 mg Q15M PRN IM DECREASED GLUCOSE; Start 02/14/19 at 06:30 Glucose (Glutose) 15 gm Q15M PRN BUCCAL DECREASED GLUCOSE; Start 02/14/19 at 06:30 Aspirin (Halfprin) 81 mg DAILY PO Last administered on 02/17/19at 09:07; Admin Dose 81 MG; Start 02/14/19 at 10:00 Fenofibrate (Tricor) 145 mg DAILY PO Last administered on 02/17/19 09:06; Admin Dose 145 MG; Start 02/14/19 at 10:30 Ferrous Sulfate (Ferrous Sulfate (Ec)) 325 mg BID PO Last administered on 02/17/19 09:07; Admin Dose 325 MG; Start 02/14/19 at 10:30 Lisinopril (Zestril) 5 mg DAILY PO Last administered on 02/17/19at 12:17; Admin Dose 5 MG; Start 02/14/19 at 10:30 Meropenem/Sodium Chloride 50 ml @ 100 mls/hr Q12 IVPB Last administered on 02/17/19 09:03; Admin Dose 100 MLS/HR; Start 02/15/19 at 13:00 LILIANE HOBBS MD Feb 17, 2019 16:33
--- NOTE | 2019-02-17 16:44 | CONS ---
Assessment/Plan Assessment/Plan Hospital Course (Demo Recall) Looks comfortable no fevers Wound culture growing Proteus mirabilis, Corynebacterium grp JK, GPC Allergies: Penicillin Antimicrobials: Vanco Merrem Physical examination: Well-nourished well-developed elderly man who isin no distress. Head atraumatic normocephalic sclera nonicteric neck is supple chest rise symmetrical breath sounds clear heart: S1-S2 abdomen soft bowel sounds present extremities no cyanosis Assessment: 1. Recurrent hidradenitis suppurativa of bilateral groins and perineum, status post multiple debridement in the past and leukocytosis secondary to #1 2. Diabetes 3. Hypertension 4. Coronary artery disease Plan: Stable, continue antibiotics, follow drainage culture, surgical recommendations Consultation Date/Type/Reason Admit Date/Time Feb 14, 2019 at 14:15 Initial Consult Date 02/14/19 Type of Consult id Requesting Provider: TAMARA SMITH MD Date/Time of Note DATE: 02/17/19 TIME: 16:42 Exam/Review of Systems Exam Vitals Vital Signs Date Temp Pulse Resp B/P (MAP) Pulse Ox O2 O2 Flow FiO2 Time Delivery Rate 02/17/19 98.8 84 20 128/76 98 14:00 (93) 02/16/19 Room Air 14:03 Intake and Output 02/16/19 02/16/19 02/17/19 1515:00 23:00 07:00 IntakeIntake Total 1490 ml 410 ml 250 ml OutputOutput Total 600 ml 150 ml BalanceBalance 890 ml 410 ml 100 ml Results Result Diagram: 02/17/19 0440 02/16/19 0526 Results 24hrs Laboratory Tests Test 02/16/19 17:16 02/16/19 20:36 02/17/19 04:40 02/17/19 08:09 Bedside Glucose 118 157 110 White Blood Count 10.5 Red Blood Count 2.97 L Hemoglobin 7.7 L Hematocrit 25.5 L Mean Corpuscular Volume 85.9 Mean Corpuscular 25.9 L Hemoglobin Mean Corpuscular 30.2 L Hemoglobin Concent Red Cell Distribution 18.6 H Width Platelet Count 304 Mean Platelet Volume 9.1 Immature Granulocytes % 0.700 H Neutrophils % 82.6 H Lymphocytes % 11.2 L Monocytes % 5.0 Eosinophils % 0.3 Basophils % 0.2 Nucleated Red Blood 0.0 Cells % Immature Granulocytes # 0.070 H Neutrophils # 8.7 H Lymphocytes # 1.2 Monocytes # 0.5 Eosinophils # 0.0 Basophils # 0.0 Nucleated Red Blood 0.0 Cells # Test 02/17/19 12:05 Bedside Glucose 161 Medications Medication Current Medications Tramadol HCl (Ultram) 50 mg Q6H PRN PO MODERATE PAIN LEVEL 4-6; Start 02/14/19 at 05:00 Morphine Sulfate (morphine) 2 mg Q4H PRN IV SEVERE PAIN LEVEL 7-10 Last administered on 02/16/19at 20:25; Admin Dose 2 MG; Start 02/14/19 at 05:00 Acetaminophen (Tylenol Tab) 650 mg Q6H PRN PO MILD PAIN(1-3)OR ELEVATED TEMP; Start 02/14/19 at 05:00 Pantoprazole (Protonix Tab) 40 mg DAILY@06 PO Last administered on 02/17/19at 05:57; Admin Dose 40 MG; Start 02/14/19 at 06:00 Enoxaparin Sodium (Lovenox) 40 mg DAILY SC Last administered on 02/17/19at 09:08; Admin Dose 40 MG; Start 02/14/19 at 09:00 Vancomycin HCl (Vanco Iv Per Pharmacy) VANCOMYCIN PER PHARMACY PER PROTOCOL XX ; Start 02/14/19 at 05:00 Vancomycin HCl 250 ml @ 125 mls/hr Q12H IVPB Last administered on 02/17/19at 12:20; Admin Dose 125 MLS/HR; Start 02/14/19 at 13:00 Diagnostic Test (Pha) (Accu-Chek) 1 ea 02 XX ; Start 02/15/19 at 02:00 Insulin Aspart (Novolog Insulin Pen) NOVOLOG *MODERATE* ALGORITHM WITH MEALS BEDTIME SC Last administered on 02/17/19at 12:18; Admin Dose 2 UNIT; Start 02/14/19 at 08:00 Miscellaneous Information 1 ea NOTE XX ; Start 02/14/19 at 06:30 Glucose (Glutose) 15 gm Q15M PRN PO DECREASED GLUCOSE; Start 02/14/19 at 06:30 Glucose (Glutose) 22.5 gm Q15M PRN PO DECREASED GLUCOSE; Start 02/14/19 at 06:30 Dextrose (D50w Syringe) 25 ml Q15M PRN IV DECREASED GLUCOSE; Start 02/14/19 at 06:30 Dextrose (D50w Syringe) 50 ml Q15M PRN IV DECREASED GLUCOSE; Start 02/14/19 at 06:30 Glucagon (Glucagen) 1 mg Q15M PRN IM DECREASED GLUCOSE; Start 02/14/19 at 06:30 Glucose (Glutose) 15 gm Q15M PRN BUCCAL DECREASED GLUCOSE; Start 02/14/19 at 06:30 Aspirin (Halfprin) 81 mg DAILY PO Last administered on 02/17/19at 09:07; Admin Dose 81 MG; Start 02/14/19 at 10:00 Fenofibrate (Tricor) 145 mg DAILY PO Last administered on 02/17/19 09:06; Admin Dose 145 MG; Start 02/14/19 at 10:30 Ferrous Sulfate (Ferrous Sulfate (Ec)) 325 mg BID PO Last administered on 02/17/19 09:07; Admin Dose 325 MG; Start 02/14/19 at 10:30 Lisinopril (Zestril) 5 mg DAILY PO Last administered on 02/17/19at 12:17; Admin Dose 5 MG; Start 02/14/19 at 10:30 Meropenem/Sodium Chloride 50 ml @ 100 mls/hr Q12 IVPB Last administered on 02/17/19 09:03; Admin Dose 100 MLS/HR; Start 02/15/19 at 13:00 EZIO LUEVANO NP Feb 17, 2019 16:44
[2019-02-17] MEDS: morphine 2 MG INJ IV PRN (18:19)
[2019-02-17 20:00] VITALS: BP 127/59; PULSE 70; RESP 18
[2019-02-18 02:00] VITALS: BP_SYST 125; BP_SYST 131; BP_DIAS 63; BP_DIAS 75; PULSE 57; PULSE 66; RESP 18
[2019-02-18] MEDS: ACCU-CHEK XX SCH (02:00)
[2019-02-18] MEDS: VANCOMYCIN 1 GM 250 ML IVPB SCH ×2 (02:17→13:30)
[2019-02-18] MEDS: PANTOPRAZOLE (EC) 40 MG TAB PO SCH (06:26)
[2019-02-18 08:00] VITALS: BP 124/62; PULSE 76; RESP 18
[2019-02-18] MEDS: ASPIRIN (EC) 81 MG TAB PO SCH (08:32)
[2019-02-18] MEDS: LISINOPRIL 5 MG TAB PO SCH (08:32)
[2019-02-18] MEDS: FENOFIBRATE 145 MG TAB PO SCH (08:32)
[2019-02-18] MEDS: FERROUS SULFATE (EC) 325 MG TAB PO SCH ×2 (08:33→20:57)
[2019-02-18] MEDS: MEROPENEM 1 GM/50ML(PMX) 50 ML IVPB SCH ×2 (08:33→20:57)
[2019-02-18] MEDS: INSULIN ASPART [NOVOLOG] 3 ML PEN SC SCH ×4 (08:34→21:00)
[2019-02-18] MEDS: ENOXAPARIN 40 MG/0.4 ML SYG SC SCH (08:35)
--- NOTE | 2019-02-18 10:29 | PN ---
Date/Time of Note Date/Time of Note DATE: 02/18/19 TIME: 10:10 Assessment/Plan Lines/Catheters IV Catheter Type (from Nrs): Saline Lock Assessment/Plan Chief Complaint/Hosp Course 1. Bilateral inguinal and buttock hidradenitis suppurativa s/p multiple I&Ds; spontaneously draining; manually expressed copious amount of pus> refusing further manipulation of the area (repeatedly refused pain medication) -no emergent surgical intervention necessary as continues to self drain> needs tertiary center/plastics f/u for hidradenitis -continue kpad to promote abscess drainage -urology input noted -antibiotics per sensis>per ID -wound care -off loading -nutrition optimization -vit c 2. Hypochromic anemia -monitor and tx as needed 3. Lactic acidosis: resolved 4. Hypertension. -diet and medication control. 4. Diabetes. -Continue diet and medication control. 5. Hypercholesterolemia. -Continue diet and medication control. Thank you. Patient seen and examined in collaboration with Dr. Kevin Martinez. Subjective 24 Hr Interval Summary No fevers, chills, sob, congested cough, cp, palpitations, henry, dizziness, n/v/d/dysuria. Continues to have drainage from perineum. Exam/Review of Systems Vital Signs Vitals Vital Signs Date Temp Pulse Resp B/P (MAP) Pulse Ox O2 O2 Flow FiO2 Time Delivery Rate 02/18/19 98.6 76 18 124/62 96 08:00 (82) 02/16/19 Room Air 14:03 Intake and Output 02/17/19 02/17/19 02/18/19 1515:00 23:00 07:00 IntakeIntake Total 290 ml 690 ml 250 ml OutputOutput Total 300 ml 300 ml BalanceBalance -10 ml 390 ml 250 ml Exam Free Text/Dictation Constitutional: alert, oriented, frail Psych: nl mood/affect, anxiety (Minimal) Head: normocephalic, atraumatic Eyes: nl conjunctiva, EOMI, nl lids, nl sclera ENMT: nl external ears & nose, nl lips & teeth, mucosa pink and moist Neck: supple, non-tender; No jvd Respiratory: normal air movement; No congested cough Cardiovascular: regular rate and rhythm; No edema Gastrointestinal: soft, non-tender; No ascites Genitourinary - Male: nl penis, other (Scrotal swelling, erythema; bilateral groin: Draining areas with malodorous purulent drainage) Musculoskeletal: nl extremities to inspection Extremities: normal pulses Neurological: nl mental status, nl speech, other; No nl strength (gen weakness) Skin: nl turgor; No rash or lesions Results Result Diagram: 02/17/19 0440 02/18/19 0600 ALEXANDRA MUNOZ NP Feb 18, 2019 10:28
--- NOTE | 2019-02-18 13:52 | CONS ---
Assessment/Plan Assessment/Plan Hospital Course (Demo Recall) Summary Assessment and Plan: Assessment: Normocytic hypochromic anemia Bilateral inguinal and buttock hidradenitis suppurativa -Status post multiple I&D Prominent scrotal wall edema, right greater than left. Diabetes mellitus, type II, Hypertension History of numerous perianal, bilateral inguinal abscesses -Status post I&D Dyslipidemia History of coronary artery disease Plan: ABX per ID Clear liquid diet today NPO after 02/19/19 0900 EGD/colon tomorrow Endoscopy - risks/benefits/alternatives/indications of procedure and sedation/anesthesia discussed with patient who states understanding and gives informed consent to proceed. Hold lovenox in am Patient seen in collaboration with Dr. Romero CC: KEKE ROMERO MD ; Consultation Date/Type/Reason Admit Date/Time Feb 14, 2019 at 14:15 Date of Consultation: Feb 18, 2019 Type of Consult GI Reason for Consultation Anemia Date/Time of Note DATE: 02/18/19 TIME: 13:46 Hx of Present Illness This is a 63-year-old male with past medical history of chronic hydradenitis suppurativa, diabetes mellitus type 2, hypertension, history of numerous perianal bilateral inguinal abscesses, dyslipidemia, daily smoker, CAD, and anemia who was admitted for scrotal abscess and increased drainage of bilateral gluteal region. During hospitalization hemoglobin has been trending down. GI has been consulted for further evaluation. Patient does note dark stool however is currently taking ferrous sulfate 325 mg twice daily he denies hematochezia abdominal pain, nausea or vomiting he previously had an EGD and colonoscopy in 2016 EGD revealed normal esophagus, normal Z line, hiatal hernia, erosive gastritis, gastritis, 2 duodenal ulcers with a crater size of 3 to 4 mm, normal ampulla and second part of duodenum. Colonoscopy revealed hemorrhoids negative all the way up to the hepatic flexure, beyond that the visibility was poor because of solid, yellowish colored stool. Currently patient is in isolation for VRE of the wound. Review of Systems: A 12 system, review was conducted and is negative except as noted in the HPI or here. Past Medical History Medical History: coronary artery disease, diabetes, hypertension Home Meds Reported Medications Mupirocin* (Bactroban*) 2% -22 Gram Oint...g., 1 APPLIC TOP TID, #1 TUB SITE OF APPLICATION: 07/16/18 Fenofibrate Nanocrystallized* (Fenofibrate*) 145 Mg Tablet, 145 MG PO DAILY, TAB 07/16/18 Metformin Hcl* (Metformin Hcl*) 500 Mg Tablet, 500 MG PO WITH BREAKFAST DINNE, #60 TAB 07/16/18 Aspirin* (Aspirin* EC) 81 Mg Tablet.dr, 81 MG PO DAILY, TAB 07/16/18 Ferrous Sulfate* (Ferrous Sulfate*) 325 Mg Tabec, 325 MG PO BID, TAB 07/16/18 Lisinopril* (Lisinopril*) 5 Mg Tablet, 5 MG PO DAILY, #30 TAB 07/16/18 Medications Current Medications Tramadol HCl (Ultram) 50 mg Q6H PRN PO MODERATE PAIN LEVEL 4-6; Start 02/14/19 at 05:00 Morphine Sulfate (morphine) 2 mg Q4H PRN IV SEVERE PAIN LEVEL 7-10 Last administered on 02/17/19at 18:19; Admin Dose 2 MG; Start 02/14/19 at 05:00 Acetaminophen (Tylenol Tab) 650 mg Q6H PRN PO MILD PAIN(1-3)OR ELEVATED TEMP; Start 02/14/19 at 05:00 Pantoprazole (Protonix Tab) 40 mg DAILY@06 PO Last administered on 02/18/19at 06:26; Admin Dose 40 MG; Start 02/14/19 at 06:00 Enoxaparin Sodium (Lovenox) 40 mg DAILY SC Last administered on 02/18/19at 08:35; Admin Dose 40 MG; Start 02/14/19 at 09:00 Vancomycin HCl (Vanco Iv Per Pharmacy) VANCOMYCIN PER PHARMACY PER PROTOCOL XX ; Start 02/14/19 at 05:00 Vancomycin HCl 250 ml @ 125 mls/hr Q12H IVPB Last administered on 02/18/19at 13:30; Admin Dose 125 MLS/HR; Start 02/14/19 at 13:00 Diagnostic Test (Pha) (Accu-Chek) 1 ea 02 XX ; Start 02/15/19 at 02:00 Insulin Aspart (Novolog Insulin Pen) NOVOLOG *MODERATE* ALGORITHM WITH MEALS BEDTIME SC Last administered on 02/18/19at 12:24; Admin Dose 2 UNIT; Start 02/14/19 at 08:00 Miscellaneous Information 1 ea NOTE XX ; Start 02/14/19 at 06:30 Glucose (Glutose) 15 gm Q15M PRN PO DECREASED GLUCOSE; Start 02/14/19 at 06:30 Glucose (Glutose) 22.5 gm Q15M PRN PO DECREASED GLUCOSE; Start 02/14/19 at 06:30 Dextrose (D50w Syringe) 25 ml Q15M PRN IV DECREASED GLUCOSE; Start 02/14/19 at 06:30 Dextrose (D50w Syringe) 50 ml Q15M PRN IV DECREASED GLUCOSE; Start 02/14/19 at 06:30 Glucagon (Glucagen) 1 mg Q15M PRN IM DECREASED GLUCOSE; Start 02/14/19 at 06:30 Glucose (Glutose) 15 gm Q15M PRN BUCCAL DECREASED GLUCOSE; Start 02/14/19 at 06:30 Aspirin (Halfprin) 81 mg DAILY PO Last administered on 02/18/19at 08:32; Admin D ose 81 MG; Start 02/14/19 at 10:00 Fenofibrate (Tricor) 145 mg DAILY PO Last administered on 02/18/19at 08:32; Admin Dose 145 MG; Start 02/14/19 at 10:30 Ferrous Sulfate (Ferrous Sulfate (Ec)) 325 mg BID PO Last administered on 02/18/19 08:33; Admin Dose 325 MG; Start 02/14/19 at 10:30 Lisinopril (Zestril) 5 mg DAILY PO Last administered on 02/18/19 08:32; Admin Dose 5 MG; Start 02/14/19 at 10:30 Meropenem/Sodium Chloride 50 ml @ 100 mls/hr Q12 IVPB Last administered on 02/18/19at 08:33; Admin Dose 100 MLS/HR; Start 02/15/19 at 13:00 Allergies: Coded Allergies: Penicillins (Verified Allergy, Severe, ANAPHYLACTIC SHOCK, 07/16/18) Past Surgical History Past Surgical Hx: other (multiple I and D in past hydraadenitis suppurativa) Social History Smoking Status: Current every day smoker Exam/Review of Systems Exam Vitals Vital Signs Date Temp Pulse Resp B/P (MAP) Pulse Ox O2 O2 Flow FiO2 Time Delivery Rate 02/18/19 98.6 76 18 124/62 96 08:00 (82) 02/16/19 Room Air 14:03 Intake and Output 6/01/3102/17/19 02/18/19 1515:00 23:00 07:00 IntakeIntake Total 290 ml 690 ml 250 ml OutputOutput Total 300 ml 300 ml BalanceBalance -10 ml 390 ml 250 ml Exam PHYSICAL EXAMINATION: GENERAL: Thin, alert & oriented x 3, in no acute distress SKIN: No lesions HEAD: Normocephalic, atraumatic, no tenderness. EYES: Pupils equal reactive to light and accommodation, no discharge. EARS/NOSE AND THROAT: Ears normal, nose normal, oropharynx normal. NECK: Supple, no masses. CHEST: Inspection within normal limits. CARDIOVASCULAR: Heart: Regular rate and rhythm RESPIRATORY: Lungs clear to auscultation GASTROINTESTINAL AND LIVER: Abdomen: Soft, non tenderness, non-distended, no hernias, no masses, no organomegaly, no ascites, no guarding, no rebound tenderness, normoactive bowel sounds. Rectal: Deferred. Dressing to bilateral buttock areas. GENITOURINARY: Male genitalia within normal limits. Dressing to bilateral inguinal areas in place thank you, scrotal edema Results Result Diagram: 02/17/19 0440 02/18/19 0600 Results 24hrs Laboratory Tests Test 02/17/19 18:11 02/17/19 21:03 02/18/19 06:00 02/18/19 08:01 Bedside Glucose 151 111 156 Sodium Level 135 Potassium Level 4.3 Chloride Level 104 Carbon Dioxide Level 27 Anion Gap 4 L Blood Urea Nitrogen 13 Creatinine 0.50 L Est Glomerular Filtrat > 60 Rate mL/min Glucose Level 99 Calcium Level 7.7 L Test 02/18/19 12:08 Bedside Glucose 157 Medications Medication Current Medications Tramadol HCl (Ultram) 50 mg Q6H PRN PO MODERATE PAIN LEVEL 4-6; Start 02/14/19 at 05:00 Morphine Sulfate (morphine) 2 mg Q4H PRN IV SEVERE PAIN LEVEL 7-10 Last administered on 02/17/19at 18:19; Admin Dose 2 MG; Start 02/14/19 at 05:00 Acetaminophen (Tylenol Tab) 650 mg Q6H PRN PO MILD PAIN(1-3)OR ELEVATED TEMP; Start 02/14/19 at 05:00 Pantoprazole (Protonix Tab) 40 mg DAILY@06 PO Last administered on 02/18/19at 06:26; Admin Dose 40 MG; Start 02/14/19 at 06:00 Enoxaparin Sodium (Lovenox) 40 mg DAILY SC Last administered on 02/18/19at 08:35; Admin Dose 40 MG; Start 02/14/19 at 09:00 Vancomycin HCl (Vanco Iv Per Pharmacy) VANCOMYCIN PER PHARMACY PER PROTOCOL XX ; Start 02/14/19 at 05:00 Vancomycin HCl 250 ml @ 125 mls/hr Q12H IVPB Last administered on 02/18/19at 13:30; Admin Dose 125 MLS/HR; Start 02/14/19 at 13:00 Diagnostic Test (Pha) (Accu-Chek) 1 ea 02 XX ; Start 02/15/19 at 02:00 Insulin Aspart (Novolog Insulin Pen) NOVOLOG *MODERATE* ALGORITHM WITH MEALS BEDTIME SC Last administered on 02/18/19at 12:24; Admin Dose 2 UNIT; Start 02/14/19 at 08:00 Miscellaneous Information 1 ea NOTE XX ; Start 02/14/19 at 06:30 Glucose (Glutose) 15 gm Q15M PRN PO DECREASED GLUCOSE; Start 02/14/19 at 06:30 Glucose (Glutose) 22.5 gm Q15M PRN PO DECREASED GLUCOSE; Start 02/14/19 at 06:30 Dextrose (D50w Syringe) 25 ml Q15M PRN IV DECREASED GLUCOSE; Start 02/14/19 at 06:30 Dextrose (D50w Syringe) 50 ml Q15M PRN IV DECREASED GLUCOSE; Start 02/14/19 at 06:30 Glucagon (Glucagen) 1 mg Q15M PRN IM DECREASED GLUCOSE; Start 02/14/19 at 06:30 Glucose (Glutose) 15 gm Q15M PRN BUCCAL DECREASED GLUCOSE; Start 02/14/19 at 06:30 Aspirin (Halfprin) 81 mg DAILY PO Last administered on 02/18/19at 08:32; Admin Dose 81 MG; Start 02/14/19 at 10:00 Fenofibrate (Tricor) 145 mg DAILY PO Last administered on 02/18/19at 08:32; Admin Dose 145 MG; Start 02/14/19 at 10:30 Ferrous Sulfate (Ferrous Sulfate (Ec)) 325 mg BID PO Last administered on 02/18/19at 08:33; Admin Dose 325 MG; Start 02/14/19 at 10:30 Lisinopril (Zestril) 5 mg DAILY PO Last administered on 02/18/19at 08:32; Admin Dose 5 MG; Start 02/14/19 at 10:30 Meropenem/Sodium Chloride 50 ml @ 100 mls/hr Q12 IVPB Last administered on 02/18/19at 08:33; Admin Dose 100 MLS/HR; Start 02/15/19 at 13:00 NICK WOODRUFF Feb 18, 2019 13:52
[2019-02-18 14:00] VITALS: BP 118/72; PULSE 84; RESP 18
[2019-02-18] MEDS ORDERED: BISACODYL (EC) 5 MG TAB PO ONE (14:30)
--- NOTE | 2019-02-18 14:48 | CONS ---
Assessment/Plan Assessment/Plan Hospital Course (Demo Recall) Looks comfortable no fevers Wound culture growing Corynebacterium group JK VRE Proteus mirabilis and E. coli Allergies: Penicillin Antimicrobials: Vanco Merrem Physical examination: Well-nourished well-developed elderly man who isin no distress. Head atraumatic normocephalic sclera nonicteric neck is supple chest rise symmetrical breath sounds clear heart: S1-S2 abdomen soft bowel sounds present extremities no cyanosis Assessment: 1. Recurrent hidradenitis suppurativa of bilateral groins and perineum, status post multiple debridement in the past and leukocytosis secondary to #1 2. Diabetes 3. Hypertension 4. Coronary artery disease Plan: Stable, change Vanco to Zyvox, anticipate discharge on oral Zyvox or IV daptomycin and meropenem for 10-14 days Consultation Date/Type/Reason Admit Date/Time Feb 14, 2019 at 14:15 Initial Consult Date 02/14/19 Type of Consult id Requesting Provider: TAMARA SMITH MD Date/Time of Note DATE: 02/18/19 TIME: 14:46 Exam/Review of Systems Exam Vitals Vital Signs Date Temp Pulse Resp B/P (MAP) Pulse Ox O2 O2 Flow FiO2 Time Delivery Rate 02/18/19 98.6 76 18 124/62 96 08:00 (82) 02/16/19 Room Air 14:03 Intake and Output 02/17/19 02/17/19 02/18/19 1515:00 23:00 07:00 IntakeIntake Total 290 ml 690 ml 250 ml OutputOutput Total 300 ml 300 ml BalanceBalance -10 ml 390 ml 250 ml Results Result Diagram: 02/17/19 0440 02/18/19 0600 Results 24hrs Laboratory Tests Test 02/17/19 18:11 02/17/19 21:03 02/18/19 06:00 02/18/19 08:01 Bedside Glucose 151 111 156 Sodium Level 135 Potassium Level 4.3 Chloride Level 104 Carbon Dioxide Level 27 Anion Gap 4 L Blood Urea Nitrogen 13 Creatinine 0.50 L Est Glomerular Filtrat > 60 Rate mL/min Glucose Level 99 Calcium Level 7.7 L Test 02/18/19 12:08 Bedside Glucose 157 Medications Medication Current Medications Tramadol HCl (Ultram) 50 mg Q6H PRN PO MODERATE PAIN LEVEL 4-6; Start 02/14/19 at 05:00 Morphine Sulfate (morphine) 2 mg Q4H PRN IV SEVERE PAIN LEVEL 7-10 Last administered on 02/17/19at 18:19; Admin Dose 2 MG; Start 02/14/19 at 05:00 Acetaminophen (Tylenol Tab) 650 mg Q6H PRN PO MILD PAIN(1-3)OR ELEVATED TEMP; Start 02/14/19 at 05:00 Pantoprazole (Protonix Tab) 40 mg DAILY@06 PO Last administered on 02/18/19at 06:26; Admin Dose 40 MG; Start 02/14/19 at 06:00 Enoxaparin Sodium (Lovenox) 40 mg DAILY SC Last administered on 02/18/19at 08:35; Admin Dose 40 MG; Start 02/14/19 at 09:00; Status Future hold Vancomycin HCl (Vanco Iv Per Pharmacy) VANCOMYCIN PER PHARMACY PER PROTOCOL XX ; Start 02/14/19 at 05:00 Vancomycin HCl 250 ml @ 125 mls/hr Q12H IVPB Last administered on 02/18/19at 13:30; Admin Dose 125 MLS/HR; Start 02/14/19 at 13:00 Diagnostic Test (Pha) (Accu-Chek) 1 ea 02 XX ; Start 02/15/19 at 02:00 Insulin Aspart (Novolog Insulin Pen) NOVOLOG *MODERATE* ALGORITHM WITH MEALS BEDTIME SC Last administered on 02/18/19at 12:24; Admin Dose 2 UNIT; Start 02/14/19 at 08:00 Miscellaneous Information 1 ea NOTE XX ; Start 02/14/19 at 06:30 Glucose (Glutose) 15 gm Q15M PRN PO DECREASED GLUCOSE; Start 02/14/19 at 06:30 Glucose (Glutose) 22.5 gm Q15M PRN PO DECREASED GLUCOSE; Start 02/14/19 at 06:30 Dextrose (D50w Syringe) 25 ml Q15M PRN IV DECREASED GLUCOSE; Start 02/14/19 at 06:30 Dextrose (D50w Syringe) 50 ml Q15M PRN IV DECREASED GLUCOSE; Start 02/14/19 at 06:30 Glucagon (Glucagen) 1 mg Q15M PRN IM DECREASED GLUCOSE; Start 02/14/19 at 06:30 Glucose (Glutose) 15 gm Q15M PRN BUCCAL DECREASED GLUCOSE; Start 02/14/19 at 06:30 Aspirin (Halfprin) 81 mg DAILY PO Last administered on 02/18/19 08:32; Admin Dose 81 MG; Start 02/14/19 at 10:00 Fenofibrate (Tricor) 145 mg DAILY PO Last administered on 02/18/19 08:32; Admin Dose 145 MG; Start 02/14/19 at 10:30 Ferrous Sulfate (Ferrous Sulfate (Ec)) 325 mg BID PO Last administered on 02/18/19 08:33; Admin Dose 325 MG; Start 02/14/19 at 10:30 Lisinopril (Zestril) 5 mg DAILY PO Last administered on 02/18/19 08:32; Admin Dose 5 MG; Start 02/14/19 at 10:30 Meropenem/Sodium Chloride 50 ml @ 100 mls/hr Q12 IVPB Last administered on 02/18/19 08:33; Admin Dose 100 MLS/HR; Start 02/15/19 at 13:00 Magnesium Citrate (Citroma) 300 ml ONCE ONCE PO ; Start 02/18/19 at 17:30; Stop 02/18/19 at 17:31 Polyethylene Glycol (Miralax) 119 gm ONCE ONCE PO ; Start 02/18/19 at 18:30; Stop 02/18/19 at 18:31 Polyethylene Glycol (Miralax) 119 gm 2ND DOSE (GI PREP) ONCE PO ; Start 02/19/19 at 06:00; Stop 02/19/19 at 06:01 Bisacodyl (Dulcolax) 10 mg 2ND DOSE (GI PREP) ONCE PO ; Start 02/19/19 at 08:00; Stop 02/19/19 at 08:01 EZIO LUEVANO NP Feb 18, 2019 14:48
--- NOTE | 2019-02-18 15:13 | PN ---
Date/Time of Note Date/Time of Note DATE: 02/18/19 TIME: 15:11 Assessment/Plan VTE Prophylaxis Risk score (from Ns)>0 risk: 6 SCD applied (from Ns): No SCD contraindicated: low risk/ambulating Pharmacological prophylaxis: NA/contraindicated Pharm contraindication: low risk/ambulating Lines/Catheters IV C[facility] Type (from [facility]): Saline Lock Assessment/Plan Assessment/Plan 1. Bilateral inguinal and buttock hidradenitis suppurativa s/p multiple I&Ds; spontaneously draining culture positive for E. coli Proteus VRE Corynebacterium 3. Diabetes mellitus type 2, 4. Anemia likely aocd 5. hypertension, 6. Hx of numerous perianal, bilateral inguinal abscesses and I and D of them, 7. Dyslipidemia 8. Current every day smoker 9. History of coronary artery disease, Assessment/Plan - wound cullture +multiple organisms with E. coli/Proteus/Corynebacterium/VRE> ID will need p.o. Zyvox and IV meropenem for 10 to 14 days -picc Line placement -GI consult for EGD and a colonoscopy worried about malignancy - fu SURGERY recs> per Dr Martinez> self draining no surgery currently> will need plastics at [facility] - monitor hb - wound care - cw ASA/Linsopril/fenofibrate/lovenox -GI proph. Protonix -pain control Result Diagram: 02/17/19 0440 02/18/19 0600 Results 24hrs Laboratory Tests Test 02/17/19 18:11 02/17/19 21:03 02/18/19 06:00 02/18/19 08:01 Bedside Glucose 151 111 156 Sodium Level 135 Potassium Level 4.3 Chloride Level 104 Carbon Dioxide Level 27 Anion Gap 4 L Blood Urea Nitrogen 13 Creatinine 0.50 L Est Glomerular Filtrat > 60 Rate mL/min Glucose Level 99 Calcium Level 7.7 L Test 02/18/19 12:08 Bedside Glucose 157 Subjective 24 Hr Interval Summary Free Text/Dictation Abscesses are draining. Pending EGD and a colonoscopy tomorrow Exam/Review of Systems Exam Vitals Vital Signs Date Temp Pulse Resp B/P (MAP) Pulse Ox O2 O2 Flow FiO2 Time Delivery Rate 02/18/19 98.6 76 18 124/62 96 08:00 (82) 02/16/19 Room Air 14:03 Intake and Output 02/17/19 02/17/19 02/18/19 1515:00 23:00 07:00 IntakeIntake Total 290 ml 690 ml 250 ml OutputOutput Total 300 ml 300 ml BalanceBalance -10 ml 390 ml 250 ml Exam Exam HEENT: Within normal limits. NECK: Supple. LYMPH NODES: None palpable. CHEST: Decreased breath sounds at the bases. HEART: Without murmur or gallop. ABDOMEN: Soft, EXTREMITIES: Without cyanosis, clubbing or edema. GENITOURINARY: There is purulent drainage from the left scrotum without crepitus. There is some fluctuance over the scrotum. multiple b/l buttock lesions ABDOMEN: Soft and nontender. There is no brawny edema Results Results 24hrs Laboratory Tests Test 02/17/19 18:11 02/17/19 21:03 02/18/19 06:00 02/18/19 08:01 Bedside Glucose 151 111 156 Sodium Level 135 Potassium Level 4.3 Chloride Level 104 Carbon Dioxide Level 27 Anion Gap 4 L Blood Urea Nitrogen 13 Creatinine 0.50 L Est Glomerular Filtrat > 60 Rate mL/min Glucose Level 99 Calcium Level 7.7 L Test 02/18/19 12:08 Bedside Glucose 157 Medications Medication Current Medications Tramadol HCl (Ultram) 50 mg Q6H PRN PO MODERATE PAIN LEVEL 4-6; Start 02/14/19 at 05:00 Morphine Sulfate (morphine) 2 mg Q4H PRN IV SEVERE PAIN LEVEL 7-10 Last ad ministered on 02/17/19at 18:19; Admin Dose 2 MG; Start 02/14/19 at 05:00 Acetaminophen (Tylenol Tab) 650 mg Q6H PRN PO MILD PAIN(1-3)OR ELEVATED TEMP; Start 02/14/19 at 05:00 Pantoprazole (Protonix Tab) 40 mg DAILY@06 PO Last administered on 02/18/19at 06:26; Admin Dose 40 MG; Start 02/14/19 at 06:00 Enoxaparin Sodium (Lovenox) 40 mg DAILY SC Last administered on 02/18/19at 08:35; Admin Dose 40 MG; Start 02/14/19 at 09:00; Status Future hold Diagnostic Test (Pha) (Accu-Chek) 1 ea 02 XX ; Start 02/15/19 at 02:00 Insulin Aspart (Novolog Insulin Pen) NOVOLOG *MODERATE* ALGORITHM WITH MEALS BEDTIME SC Last administered on 02/18/19at 12:24; Admin Dose 2 UNIT; Start 02/14/19 at 08:00 Miscellaneous Information 1 ea NOTE XX ; Start 02/14/19 at 06:30 Glucose (Glutose) 15 gm Q15M PRN PO DECREASED GLUCOSE; Start 02/14/19 at 06:30 Glucose (Glutose) 22.5 gm Q15M PRN PO DECREASED GLUCOSE; Start 02/14/19 at 06:30 Dextrose (D50w Syringe) 25 ml Q15M PRN IV DECREASED GLUCOSE; Start 02/14/19 at 06:30 Dextrose (D50w Syringe) 50 ml Q15M PRN IV DECREASED GLUCOSE; Start 02/14/19 at 06:30 Glucagon (Glucagen) 1 mg Q15M PRN IM DECREASED GLUCOSE; Start 02/14/19 at 06:30 Glucose (Glutose) 15 gm Q15M PRN BUCCAL DECREASED GLUCOSE; Start 02/14/19 at 06:30 Aspirin (Halfprin) 81 mg DAILY PO Last administered on 02/18/19at 08:32; Admin Dose 81 MG; Start 02/14/19 at 10:00 Fenofibrate (Tricor) 145 mg DAILY PO Last administered on 02/18/19at 08:32; Admin Dose 145 MG; Start 02/14/19 at 10:30 Ferrous Sulfate (Ferrous Sulfate (Ec)) 325 mg BID PO Last administered on 02/18/19at 08:33; Admin Dose 325 MG; Start 02/14/19 at 10:30 Lisinopril (Zestril) 5 mg DAILY PO Last administered on 02/18/19at 08:32; Admin Dose 5 MG; Start 02/14/19 at 10:30 Meropenem/Sodium Chloride 50 ml @ 100 mls/hr Q12 IVPB Last administered on 02/18/19at 08:33; Admin Dose 100 MLS/HR; Start 02/15/19 at 13:00 Magnesium Citrate (Citroma) 300 ml ONCE ONCE PO ; Start 02/18/19 at 17:30; Stop 02/18/19 at 17:31 Polyethylene Glycol (Miralax) 119 gm ONCE ONCE PO ; Start 02/18/19 at 18:30; Stop 02/18/19 at 18:31 Polyethylene Glycol (Miralax) 119 gm 2ND DOSE (GI PREP) ONCE PO ; Start 02/19/19 at 06:00; Stop 02/19/19 at 06:01 Bisacodyl (Dulcolax) 10 mg 2ND DOSE (GI PREP) ONCE PO ; Start 02/19/19 at 08:00; Stop 02/19/19 at 08:01 Linezolid (Zyvox) 600 mg BID PO ; Start 02/18/19 at 21:00 Lidocaine (Xylocaine 1% (Mpf)) 5 ml ONCE ONCE SC ; Start 02/18/19 at 15:30; Stop 02/18/19 at 15:31; Status UNLILIANE RUIZ MD Feb 18, 2019 15:13
[2019-02-18] MEDS ORDERED: LIDOCAINE 1% (MPF) 5 ML VIAL SC ONE (15:30)
--- NOTE | 2019-02-18 17:07 | PREAC ---
Date/Time of Note Date/Time of Note DATE: 02/18/19 TIME: 17:06 Anesthesia Eval and Record Evaluation Time Pre-Procedure Interview DATE: 02/18/19 TIME: 17:06 Age 63 Sex male NPO: 8 hrs Preoperative diagnosis Normocytic hypochromic anemia Planned procedure EGD / Colonoscopy Past Medical History Past Medical History: Includes Cardio: HTN, Dyslipidemia, CAD Endo: Diabetes Pulm: Smoking Hx Heme: Anemia Surgery & Anesthesia Issues No known issue Meds Anticoagulation: No Beta Iesha within 24 hr: No Reason Beta Iesha not given: Pt. not on B-Iesha Reported Medications Mupirocin* (Bactroban*) 2% -22 Gram Oint...g., 1 APPLIC TOP TID, #1 TUB SITE OF APPLICATION: 07/16/18 Fenofibrate Nanocrystallized* (Fenofibrate*) 145 Mg Tablet, 145 MG PO DAILY, TAB 07/16/18 Metformin Hcl* (Metformin Hcl*) 500 Mg Tablet, 500 MG PO WITH BREAKFAST DINNE, #60 TAB 07/16/18 Aspirin* (Aspirin* EC) 81 Mg Tablet.dr, 81 MG PO DAILY, TAB 07/16/18 Ferrous Sulfate* (Ferrous Sulfate*) 325 Mg Tabec, 325 MG PO BID, TAB 07/16/18 Lisinopril* (Lisinopril*) 5 Mg Tablet, 5 MG PO DAILY, #30 TAB 07/16/18 Current Medications Tramadol HCl (Ultram) 50 mg Q6H PRN PO MODERATE PAIN LEVEL 4-6; Start 02/14/19 at 05:00 Morphine Sulfate (morphine) 2 mg Q4H PRN IV SEVERE PAIN LEVEL 7-10 Last administered on 02/17/19at 18:19; Admin Dose 2 MG; Start 02/14/19 at 05:00 Acetaminophen (Tylenol Tab) 650 mg Q6H PRN PO MILD PAIN(1-3)OR ELEVATED TEMP; Start 02/14/19 at 05:00 Pantoprazole (Protonix Tab) 40 mg DAILY@06 PO Last administered on 02/18/19at 06:26; Admin Dose 40 MG; Start 02/14/19 at 06:00 Enoxaparin Sodium (Lovenox) 40 mg DAILY SC Last administered on 02/18/19at 08:35; Admin Dose 40 MG; Start 02/14/19 at 09:00; Status Future hold Diagnostic Test (Pha) (Accu-Chek) 1 ea 02 XX ; Start 02/15/19 at 02:00 Insulin Aspart (Novolog Insulin Pen) NOVOLOG *MODERATE* ALGORITHM WITH MEALS BEDTIME SC Last administered on 02/18/19at 12:24; Admin Dose 2 UNIT; Start 02/14/19 at 08:00 Miscellaneous Information 1 ea NOTE XX ; Start 02/14/19 at 06:30 Glucose (Glutose) 15 gm Q15M PRN PO DECREASED GLUCOSE; Start 02/14/19 at 06:30 Glucose (Glutose) 22.5 gm Q15M PRN PO DECREASED GLUCOSE; Start 02/14/19 at 06:30 Dextrose (D50w Syringe) 25 ml Q15M PRN IV DECREASED GLUCOSE; Start 02/14/19 at 06:30 Dextrose (D50w Syringe) 50 ml Q15M PRN IV DECREASED GLUCOSE; Start 02/14/19 at 06:30 Glucagon (Glucagen) 1 mg Q15M PRN IM DECREASED GLUCOSE; Start 02/14/19 at 06:30 Glucose (Glutose) 15 gm Q15M PRN BUCCAL DECREASED GLUCOSE; Start 02/14/19 at 06:30 Aspirin (Halfprin) 81 mg DAILY PO Last administered on 02/18/19 08:32; Admin Dose 81 MG; Start 02/14/19 at 10:00 Fenofibrate (Tricor) 145 mg DAILY PO Last administered on 02/18/19 08:32; Admin Dose 145 MG; Start 02/14/19 at 10:30 Ferrous Sulfate (Ferrous Sulfate (Ec)) 325 mg BID PO Last administered on 02/18/19 08:33; Admin Dose 325 MG; Start 02/14/19 at 10:30 Lisinopril (Zestril) 5 mg DAILY PO Last administered on 02/18/19 08:32; Admin Dose 5 MG; Start 02/14/19 at 10:30 Meropenem/Sodium Chloride 50 ml @ 100 mls/hr Q12 IVPB Last administered on 02/18/19 08:33; Admin Dose 100 MLS/HR; Start 02/15/19 at 13:00 Magnesium Citrate (Citroma) 300 ml ONCE ONCE PO ; Start 02/18/19 at 17:30; Stop 02/18/19 at 17:31 Polyethylene Glycol (Miralax) 119 gm ONCE ONCE PO ; Start 02/18/19 at 18:30; Stop 02/18/19 at 18:31 Polyethylene Glycol (Miralax) 119 gm 2ND DOSE (GI PREP) ONCE PO ; Start 02/19/19 at 06:00; Stop 02/19/19 at 06:01 Bisacodyl (Dulcolax) 10 mg 2ND DOSE (GI PREP) ONCE PO ; Start 02/19/19 at 08:00; Stop 02/19/19 at 08:01 Linezolid (Zyvox) 600 mg BID PO ; Start 02/18/19 at 21:00 Meds reviewed: Yes Allergies Coded Allergies: Penicillins (Verified Allergy, Severe, ANAPHYLACTIC SHOCK, 07/16/18) Allergies Reviewed: Yes Labs/Studies Labs Reviewed: Reviewed by anesthesiologist Result Diagram: 02/17/19 0440 02/18/19 0600 Laboratory Tests 02/18/19 06:00 test: N/A Studies: ECG (SR) Pre-procedure Exam Last vitals Vital Signs Date Temp Pulse Resp B/P (MAP) Pulse Ox O2 O2 Flow FiO2 Time Delivery Rate 02/18/19 98.8 84 18 118/72 96 14:00 (87) 02/16/19 Room Air 14:03 Airway: Adequate mouth opening Mallampati: Mallampati II Teeth: Normal Lung: Normal Heart: Normal ASA Physical Status ASA physical status: 3 Emergency: None Planned Anesthetic General/MAC: MAC Pre-operative Attestations Prior to commencing anesthesia and surgery, the patient was re-evaluated, there was verification of: *The patient's identity *The results of appropriate recent lab work and preoperative vital signs *The above evaluation not changing prior to induction *Anesthetic plan, risk benefits, alternative and complications discussed with patient/family; questions answered; patient/family understands, accepts and wishes to proceed. EM VOSS Feb 18, 2019 17:07
[2019-02-18] MEDS ORDERED: MAGNESIUM CITRATE 300 ML BTL PO ONE (17:30)
[2019-02-18] MEDS ORDERED: POLYETHYLENE GLYCOL 3350 119 GM POWDER PO ONE (18:30)
[2019-02-18 20:00] VITALS: BP 130/60; PULSE 78; RESP 18
[2019-02-18] MEDS: morphine 2 MG INJ IV PRN (20:57)
[2019-02-18] MEDS: ZYVOX 600 MG TAB PO SCH (20:57)
[2019-02-19] VITALS (15 sets, daily range): BP systolic 107–136; BP diastolic 52–65; PULSE 60–86; RESP 15–20
[2019-02-19] MEDS: ACCU-CHEK XX SCH (02:00)
[2019-02-19] MEDS ORDERED: POLYETHYLENE GLYCOL 3350 119 GM POWDER PO ONE (06:00)
[2019-02-19] MEDS: PANTOPRAZOLE (EC) 40 MG TAB PO SCH (06:15)
--- NOTE | 2019-02-19 07:55 | PN ---
Date/Time of Note Date/Time of Note DATE: 02/19/19 TIME: 07:54 Assessment/Plan VTE Prophylaxis Risk score (from Ns)>0 risk: 6 [place] [facility] [place] contraindicated: other Pharmacological prophylaxis: LMWH Pharm contraindication: bleeding, anticoag not tolerated Lines/Catheters IV C[facility] Type (from [facility]): Saline Lock Assessment/Plan Hospital Course 1. Chronic hydradenitis suppurativa 2. Scrotal abscess 3. Diabetes mellitus type 2, 4. severe anemia 5. hypertension, 6. Hx of numerous perianal, bilateral inguinal abscesses and I and D of them, 7. Dyslipidemia 8. Current every day smoker 9. History of coronary artery disease, Assessment/Plan - wound culture +multiple organisms with E. coli/Proteus/Corynebacterium/VRE> ID will need p.o. Zyvox and IV meropenem for 10 to 14 days -picc Line placement -Stop Lovenox, pt is not tolerating -blood transfusion 1 unit today -pending EGD and colonoscopy -GI consult for EGD and a colonoscopy worried about malignancy - fu SURGERY recs> per Dr Martinez> self draining no surgery currently> will need plastics at tertiary center - monitor hb - wound care - cw ASA/Linsopril/fenofibrate -GI proph. Protonix -pain control Result Diagram: 02/17/19 0440 02/18/19 0600 Results 24hrs Laboratory Tests Test 02/18/19 08:01 02/18/19 12:08 02/18/19 17:44 02/18/19 21:08 Bedside Glucose 156 157 121 167 Subjective 24 Hr Interval Summary Skin: laceration, skin lesions Exam/Review of Systems Exam Vitals Vital Signs Date Temp Pulse Resp B/P (MAP) Pulse Ox O2 O2 Flow FiO2 Time Delivery Rate 02/19/19 97.8 66 18 115/58 97 Room Air 02:00 (77) Intake and Output 02/18/19 02/18/19 02/19/19 1515:00 23:00 07:00 IntakeIntake Total 880 ml 400 ml OutputOutput Total 1700 ml 300 ml 1100 ml BalanceBalance -820 ml 100 ml -1100 ml Constitutional: alert, oriented Cardiovascular: regular rate and rhythm Gastrointestinal: soft Musculoskeletal: muscle weakness Skin: other (inguinal wounds with scrotal swelling) Results Results 24hrs Laboratory Tests Test 02/18/19 08:01 02/18/19 12:08 02/18/19 17:44 02/18/19 21:08 Bedside Glucose 156 157 121 167 Medications Medication Current Medications Tramadol HCl (Ultram) 50 mg Q6H PRN PO MODERATE PAIN LEVEL 4-6; Start 02/14/19 at 05:00 Morphine Sulfate (morphine) 2 mg Q4H PRN IV SEVERE PAIN LEVEL 7-10 Last administered on 02/18/19at 20:57; Admin Dose 2 MG; Start 02/14/19 at 05:00 Acetaminophen (Tylenol Tab) 650 mg Q6H PRN PO MILD PAIN(1-3)OR ELEVATED TEMP; Start 02/14/19 at 05:00 Pantoprazole (Protonix Tab) 40 mg DAILY@06 PO Last administered on 02/19/19at 06:15; Admin Dose 40 MG; Start 02/14/19 at 06:00 Enoxaparin Sodium (Lovenox) 40 mg DAILY SC Last administered on 02/18/19at 08:35; Admin Dose 40 MG; Start 02/14/19 at 09:00; Status Future hold Diagnostic Test (Pha) (Accu-Chek) 1 ea 02 XX ; Start 02/15/19 at 02:00 Insulin Aspart (Novolog Insulin Pen) NOVOLOG *MODERATE* ALGORITHM WITH MEALS BEDTIME SC Last administered on 02/18/19at 12:24; Admin Dose 2 UNIT; Start 02/14/19 at 08:00 Miscellaneous Information 1 ea NOTE XX ; Start 02/14/19 at 06:30 Glucose (Glutose) 15 gm Q15M PRN PO DECREASED GLUCOSE; Start 02/14/19 at 06:30 Glucose (Glutose) 22.5 gm Q15M PRN PO DECREASED GLUCOSE; Start 02/14/19 at 06:30 Dextrose (D50w Syringe) 25 ml Q15M PRN IV DECREASED GLUCOSE; Start 02/14/19 at 06:30 Dextrose (D50w Syringe) 50 ml Q15M PRN IV DECREASED GLUCOSE; Start 02/14/19 at 06:30 Glucagon (Glucagen) 1 mg Q15M PRN IM DECREASED GLUCOSE; Start 02/14/19 at 06:30 Glucose (Glutose) 15 gm Q15M PRN BUCCAL DECREASED GLUCOSE; Start 02/14/19 at 06:30 Aspirin (Halfprin) 81 mg DAILY PO Last administered on 02/18/19 08:32; Admin Dose 81 MG; Start 02/14/19 at 10:00 Fenofibrate (Tricor) 145 mg DAILY PO Last administered on 02/18/19 08:32; Admin Dose 145 MG; Start 02/14/19 at 10:30 Ferrous Sulfate (Ferrous Sulfate (Ec)) 325 mg BID PO Last administered on 02/18/19 20:57; Admin Dose 325 MG; Start 02/14/19 at 10:30 Lisinopril (Zestril) 5 mg DAILY PO Last administered on 02/18/19 08:32; Admin Dose 5 MG; Start 02/14/19 at 10:30 Meropenem/Sodium Chloride 50 ml @ 100 mls/hr Q12 IVPB Last administered on 02/18/19 20:57; Admin Dose 100 MLS/HR; Start 02/15/19 at 13:00 Bisacodyl (Dulcolax) 10 mg 2ND DOSE (GI PREP) ONCE PO ; Start 02/19/19 at 08:00; Stop 02/19/19 at 08:01 Linezolid (Zyvox) 600 mg BID PO Last administered on 02/18/19 20:57; Admin Dose 600 MG; Start 02/18/19 at 21:00 JESSICA MILLS Feb 19, 2019 07:55
[2019-02-19] MEDS ORDERED: BISACODYL (EC) 5 MG TAB PO ONE (08:00)
[2019-02-19] MEDS: INSULIN ASPART [NOVOLOG] 3 ML PEN SC SCH ×4 (08:32→20:52)
[2019-02-19] MEDS: LISINOPRIL 5 MG TAB PO SCH (08:34)
[2019-02-19] MEDS: ASPIRIN (EC) 81 MG TAB PO SCH (08:34)
[2019-02-19] MEDS: CALCIUM CARBONATE 1.25 GM TAB PO SCH ×2 (08:36→20:47)
[2019-02-19] MEDS: FENOFIBRATE 145 MG TAB PO SCH (08:36)
[2019-02-19] MEDS: ZINC SULFATE 220 MG CAP PO SCH (08:36)
[2019-02-19] MEDS: ZYVOX 600 MG TAB PO SCH ×2 (08:36→20:47)
[2019-02-19] MEDS: FERROUS SULFATE (EC) 325 MG TAB PO SCH ×2 (08:36→20:47)
[2019-02-19] MEDS: MEROPENEM 1 GM/50ML(PMX) 50 ML IVPB SCH ×2 (08:37→20:47)
[2019-02-19] MEDS ORDERED: ASCORBIC ACID 500 MG TAB.CHEW PO SCH (09:00)
[2019-02-19] MEDS: ASCORBIC ACID 500 MG TAB PO SCH (10:00)
--- NOTE | 2019-02-19 10:15 | PN ---
Date/Time of Note Date/Time of Note DATE: 02/19/19 TIME: 10:12 Assessment/Plan Lines/Catheters [facility] Saline Lock Assessment/Plan Chief Complaint/Hosp Course 1. Bilateral inguinal and buttock hidradenitis suppurativa s/p multiple I&Ds; spontaneously draining; manually expressed copious amount of pus -no emergent surgical intervention necessary as continues to self drain> needs tertiary center/plastics f/u for hidradenitis -continue kpad to promote abscess drainage -urology input noted -antibiotics per sensis>per ID -wound care -off loading -nutrition optimization -vit c 2. Hypochromic anemia -monitor and tx as needed -egd/colon today 3. Lactic acidosis: resolved 4. Hypertension. -diet and medication control. 4. Diabetes. -Continue diet and medication control. 5. Hypercholesterolemia. -Continue diet and medication control. Thank you. Patient seen and examined in collaboration with Dr. Kevin Martinez. Subjective 24 Hr Interval Summary continues to have perineal drainage. No fevers, chills, sob, congested cough, cp, palpitations, henry, dizziness, n/v/d/dysuria. EGD/colon today. Exam/Review of Systems Vital Signs Vitals Vital Signs Date Temp Pulse Resp B/P (MAP) Pulse Ox O2 O2 Flow FiO2 Time Delivery Rate 02/19/19 98.1 81 18 115/59 96 08:47 (77) 02/19/19 Room Air 02:00 Intake and Output 02/18/19 02/18/19 02/19/19 1515:00 23:00 07:00 IntakeIntake Total 880 ml 400 ml OutputOutput Total 1700 ml 300 ml 1100 ml BalanceBalance -820 ml 100 ml -1100 ml Exam Free Text/Dictation Constitutional: alert, oriented, frail Psych: nl mood/affect, anxiety (Minimal) Head: normocephalic, atraumatic Eyes: nl conjunctiva, EOMI, nl lids, nl sclera ENMT: nl external ears & nose, nl lips & teeth, mucosa pink and moist Neck: supple, non-tender; No jvd Respiratory: normal air movement; No congested cough Cardiovascular: regular rate and rhythm; No edema Gastrointestinal: soft, non-tender; No ascites Genitourinary - Male: nl penis, other (Scrotal swelling, erythema; bilateral groin: Draining areas with malodorous purulent drainage) Musculoskeletal: nl extremities to inspection Extremities: normal pulses Neurological: nl mental status, nl speech, other; No nl strength (gen weakness) Skin: nl turgor; No rash or lesions Results Result Diagram: 02/17/19 0440 02/18/19 0600 ALEXANDRA MUNOZ NP Feb 19, 2019 10:15
[2019-02-19] MEDS ORDERED: EPHEDrine 25 MG/5 ML SYG IV PRN (15:00)
[2019-02-19] MEDS ORDERED: LABETALOL HCL 20MG INJ IV PRN (15:00)
[2019-02-19] MEDS ORDERED: FENTAnyl 50 MCG/ML VIAL IV PRN ×2 (15:00)
[2019-02-19] MEDS ORDERED: ONDANSETRON 4 MG INJ IV PRN (15:00)
[2019-02-19] MEDS ORDERED: HYDROmorphONE 1 MG/5 ML IV SYRINGE IV PRN ×2 (15:00)
--- NOTE | 2019-02-19 15:03 | PAC ---
Date/Time of Note Date/Time of Note DATE: 02/19/19 TIME: 15:03 Post-Anesthesia Notes Post-Anesthesia Note Last documented vital signs Vital Signs Date Temp Pulse Resp B/P (MAP) Pulse Ox O2 O2 Flow FiO2 Time Delivery Rate 02/19/19 99.0 60 15 134/60 100 Room Air 15:10 (84) Activity: WNL Respiratory function: WNL Cardiovascular function: WNL Mental status: Baseline Pain reasonably controlled: Yes Hydration appropriate: Yes Nausea/Vomiting absent: Yes AMPARO CRUZ MD Feb 19, 2019 15:03
[2019-02-19] MEDS ORDERED: PROPOFOL 20 ML ONE (15:42)
--- NOTE | 2019-02-19 15:43 | HPN ---
Date/Time of Note Date/Time of Note DATE: 02/19/19 TIME: 14:43 Interval H&P Admission Note Pt. seen H&P reviewed: No system changes KEKE REYNOSO MD Feb 19, 2019 15:43
[2019-02-19] MEDS: LACTULOSE 30ML CUP PO SCH ×4 (17:51→23:00)
--- NOTE | 2019-02-19 18:40 | CONS ---
Assessment/Plan Assessment/Plan Hospital Course (Demo Recall) 1200 Awake. Looks comfortable no fevers Wound culture growing Corynebacterium group JK VRE Proteus mirabilis and E. coli Allergies: Penicillin Antimicrobials: Zyvox Merrem Physical examination: Well-nourished well-developed elderly man who isin no distress. Head atraumatic normocephalic sclera nonicteric neck is supple chest rise symmetrical breath sounds clear heart: S1-S2 abdomen soft bowel sounds present extremities no cyanosis Assessment: 1. Recurrent hidradenitis suppurativa of bilateral groins and perineum, status post multiple debridement in the past and leukocytosis secondary to #1 2. Diabetes 3. Hypertension 4. Coronary artery disease Plan: Stable, anticipate discharge on oral Zyvox or IV daptomycin and meropenem for 10-14 days Consultation Date/Type/Reason Admit Date/Time Feb 14, 2019 at 14:15 Initial Consult Date 02/14/19 Type of Consult id Requesting Provider: TAMARA SMITH MD Date/Time of Note DATE: 02/19/19 TIME: 18:40 Exam/Review of Systems Exam Vitals Vital Signs Date Temp Pulse Resp B/P (MAP) Pulse Ox O2 O2 Flow FiO2 Time Delivery Rate 02/19/19 97.8 72 18 117/65 98 16:25 (82) 02/19/19 Nasal 2.0 15:25 Cannula Intake and Output 02/18/19 02/18/19 02/19/19 1515:00 23:00 07:00 IntakeIntake Total 880 ml 400 ml OutputOutput Total 1700 ml 300 ml 1100 ml BalanceBalance -820 ml 100 ml -1100 ml Results Result Diagram: 02/17/19 0440 02/18/19 0600 Results 24hrs Laboratory Tests Test 02/18/19 21:08 02/19/19 08:29 02/19/19 12:02 02/19/19 13:51 Bedside Glucose 167 265 H 86 97 Test 02/19/19 14:21 02/19/19 17:49 Bedside Glucose 90 174 Medications Medication Current Medications Tramadol HCl (Ultram) 50 mg Q6H PRN PO MODERATE PAIN LEVEL 4-6; Start 02/14/19 at 05:00 Morphine Sulfate (morphine) 2 mg Q4H PRN IV SEVERE PAIN LEVEL 7-10 Last administered on 02/18/19 20:57; Admin Dose 2 MG; Start 02/14/19 at 05:00 Acetaminophen (Tylenol Tab) 650 mg Q6H PRN PO MILD PAIN(1-3)OR ELEVATED TEMP; Start 02/14/19 at 05:00 Pantoprazole (Protonix Tab) 40 mg DAILY@06 PO Last administered on 02/19/19 06:15; Admin Dose 40 MG; Start 02/14/19 at 06:00 Diagnostic Test (Pha) (Accu-Chek) 1 ea 02 XX ; Start 02/15/19 at 02:00 Insulin Aspart (Novolog Insulin Pen) NOVOLOG *MODERATE* ALGORITHM WITH MEALS BEDTIME SC Last administered on 02/19/19 17:54; Admin Dose 2 UNIT; Start 02/14/19 at 08:00 Miscellaneous Information 1 ea NOTE XX ; Start 02/14/19 at 06:30 Glucose (Glutose) 15 gm Q15M PRN PO DECREASED GLUCOSE; Start 02/14/19 at 06:30 Glucose (Glutose) 22.5 gm Q15M PRN PO DECREASED GLUCOSE; Start 02/14/19 at 06:30 Dextrose (D50w Syringe) 25 ml Q15M PRN IV DECREASED GLUCOSE; Start 02/14/19 at 06:30 Dextrose (D50w Syringe) 50 ml Q15M PRN IV DECREASED GLUCOSE; Start 02/14/19 at 06:30 Glucagon (Glucagen) 1 mg Q15M PRN IM DECREASED GLUCOSE; Start 02/14/19 at 06:30 Glucose (Glutose) 15 gm Q15M PRN BUCCAL DECREASED GLUCOSE; Start 02/14/19 at 06:30 Aspirin (Halfprin) 81 mg DAILY PO Last administered on 02/19/19 08:34; Admin Dose 81 MG; Start 02/14/19 at 10:00 Fenofibrate (Tricor) 145 mg DAILY PO Last administered on 02/19/19 08:36; Admin Dose 145 MG; Start 02/14/19 at 10:30 Ferrous Sulfate (Ferrous Sulfate (Ec)) 325 mg BID PO Last administered on 02/19/19 08:36; Admin Dose 325 MG; Start 02/14/19 at 10:30 Lisinopril (Zestril) 5 mg DAILY PO Last administered on 6/7/19at 08:34; Admin Dose 5 MG; Start 02/14/19 at 10:30 Meropenem/Sodium Chloride 50 ml @ 100 mls/hr Q12 IVPB Last administered on 02/19/19at 08:37; Admin Dose 100 MLS/HR; Start 02/15/19 at 13:00 Linezolid (Zyvox) 600 mg BID PO Last administered on 02/19/19at 08:36; Admin Dose 600 MG; Start 02/18/19 at 21:00 Calcium Carbonate (Oyster Shell Calcium) 1.25 gm BID PO Last administered on 02/19/19at 08:36; Admin Dose 1.25 GM; Start 02/19/19 at 09:00 Zinc Sulfate (Zinc Sulfate) 220 mg DAILY PO Last administered on 02/19/19at 08:36; Admin Dose 220 MG; Start 02/19/19 at 09:00 Ascorbic Acid (Vitamin C) 500 mg DAILY PO ; Start 02/19/19 at 10:00 Hydromorphone HCl (Dilaudid) 0.2 mg PACU PRN IV MILD PAIN 1-3; Start 02/19/19 at 15:00; Stop 02/19/19 at 19:30 Hydromorphone HCl (Dilaudid) 0.4 mg PACU PRN IV MOD PAIN 4-6; Start 02/19/19 at 15:00; Stop 02/19/19 at 19:30 Fentanyl (Sublimaze) 25 mcg PACU ORDER PRN IV MILD PAIN 1-3; Start 02/19/19 at 15:00; Stop 02/19/19 at 19:30 Fentanyl (Sublimaze) 50 mcg PACU ORDER PRN IV MOD PAIN 4-6; Start 02/19/19 at 15:00; Stop 02/19/19 at 19:30 Ondansetron HCl (Zofran Inj) 4 mg PACU ORDER PRN IV NAUSEA/VOMITING; Start 02/19/19 at 15:00; Stop 02/19/19 at 19:30 Labetalol HCl (Labetalol) 5 mg PACU ORDER PRN IV HIGH BLOOD PRESSURE; Start 02/19/19 at 15:00; Stop 02/19/19 at 19:30 Ephedrine Sulfate 5 mg PACU ORDER PRN IV BLOOD PRESSURE SUPPORT; Start 02/19/19 at 15:00; Stop 02/19/19 at 19:30 Lactulose (Enulose) 40 gm Q2 PO Last administered on 02/19/19at 17:51; Admin Dose 40 GM; Start 02/19/19 at 17:00; Stop 02/20/19 at 01:01 IV Flush (NS 10 ml) 10 ml Q8 IV ; Start 02/19/19 at 22:00 EZIO LUEVANO NP Feb 19, 2019 18:40
[2019-02-19] MEDS: morphine 2 MG INJ IV PRN (20:37)
[2019-02-20] VITALS (10 sets, daily range): BP systolic 94–133; BP diastolic 45–68; PULSE 60–76; RESP 12–20
[2019-02-20] MEDS: LACTULOSE 30ML CUP PO SCH (01:00)
[2019-02-20] MEDS: ACCU-CHEK XX SCH (02:00)
[2019-02-20] MEDS: INSULIN ASPART [NOVOLOG] 3 ML PEN SC SCH ×3 (05:00→12:42)
[2019-02-20] MEDS: PANTOPRAZOLE (EC) 40 MG TAB PO SCH (05:59)
[2019-02-20] MEDS: ZYVOX 600 MG TAB PO SCH ×2 (08:48→20:46)
[2019-02-20] MEDS: MEROPENEM 1 GM/50ML(PMX) 50 ML IVPB SCH ×2 (08:48→20:46)
[2019-02-20] MEDS: LISINOPRIL 5 MG TAB PO SCH ×2 (09:00→17:34)
[2019-02-20] MEDS: ASPIRIN (EC) 81 MG TAB PO SCH ×2 (09:00→17:33)
[2019-02-20] MEDS: CALCIUM CARBONATE 1.25 GM TAB PO SCH ×2 (09:00→20:46)
[2019-02-20] MEDS: ASCORBIC ACID 500 MG TAB PO SCH ×2 (09:00→17:33)
[2019-02-20] MEDS: ZINC SULFATE 220 MG CAP PO SCH ×2 (09:00→17:33)
[2019-02-20] MEDS: FERROUS SULFATE (EC) 325 MG TAB PO SCH ×2 (09:00→20:47)
[2019-02-20] MEDS: FENOFIBRATE 145 MG TAB PO SCH ×2 (09:00→17:32)
[2019-02-20] MEDS ORDERED: DEXTROSE 10% 1,000 ML IV SCH (09:30)
--- NOTE | 2019-02-20 09:30 | PN ---
Date/Time of Note Date/Time of Note DATE: 02/20/19 TIME: 09:27 Assessment/Plan VTE Prophylaxis [place] [facility] [place]: 6 [place]CD applied [place] [facility] [place] No SCD contraindicated: patient refusal Pharmacological prophylaxis: NA/contraindicated Pharm contraindication: anticoag not tolerated Lines/Catheters IV Catheter Type (from [facility]): PICC Line Central line still needed: Yes Assessment/Plan Hospital Course 1. Chronic hydradenitis suppurativa 2. Scrotal abscess 3. Diabetes mellitus type 2, 4. severe anemia 5. hypertension, 6. Hx of numerous perianal, bilateral inguinal abscesses and I and D of them, 7. Dyslipidemia 8. Current every day smoker 9. History of coronary artery disease, Assessment/Plan - wound culture +multiple organisms with E. coli/Proteus/Corynebacterium/VRE> ID will need p.o. Zyvox and IV meropenem for 10 to 14 days -picc Line placement -EGD showed esophagitis, small hiatal hernia -incomplete colonoscopy -D10 w WHILA npo -s/p blood transfusion 1 unit - colonoscopy -GI consult for EGD and a colonoscopy worried about malignancy - fu SURGERY recs> per Dr Martinez> self draining no surgery currently> will need plastics at tertiary center - monitor hb - wound care - cw ASA/Linsopril/fenofibrate -GI proph. Protonix -pain control -D/C PLANNING Result Diagram: 02/20/19 0508 02/20/19 0508 Results 24hrs Laboratory Tests Test 02/19/19 12:02 02/19/19 13:51 02/19/19 14:21 02/19/19 17:49 Bedside Glucose 86 97 90 174 Test 02/19/19 20:45 02/20/19 05:07 02/20/19 05:08 02/20/19 08:55 Bedside Glucose 155 105 104 White Blood Count 9.5 Red Blood Count 3.39 L Hemoglobin 8.7 L Hematocrit 29.1 L Mean Corpuscular Volume 85.8 Mean Corpuscular 25.7 L Hemoglobin Mean Corpuscular 29.9 L Hemoglobin Concent Red Cell Distribution 17.6 H Width Platelet Count 318 Mean Platelet Volume 9.8 Immature Granulocytes % 0.300 Neutrophils % 84.7 H Lymphocytes % 9.7 L Monocytes % 4.7 Eosinophils % 0.3 Basophils % 0.3 Nucleated Red Blood 0.0 Cells % Immature Granulocytes # 0.030 Neutrophils # 8.1 H Lymphocytes # 0.9 Monocytes # 0.5 Eosinophils # 0.0 Basophils # 0.0 Nucleated Red Blood 0.0 Cells # Sodium Level 138 Potassium Level 4.2 Chloride Level 105 Carbon Dioxide Level 29 Anion Gap 4 L Blood Urea Nitrogen 16 Creatinine 0.48 L Est Glomerular Filtrat > 60 Rate mL/min Glucose Level 98 Calcium Level 7.9 L Subjective 24 Hr Interval Summary Skin: skin lesions, other (PAIN) Exam/Review of Systems Exam Vitals Vital Signs Date Temp Pulse Resp B/P (MAP) Pulse Ox O2 O2 Flow FiO2 Time Delivery Rate 02/20/19 98.3 68 20 126/63 96 08:25 (84) 02/20/19 Room Air 02:39 02/19/19 2.0 15:48 Intake and Output 02/19/19 02/19/19 02/20/19 1515:00 23:00 07:00 IntakeIntake Total 100 ml 290 ml 3352 ml OutputOutput Total 600 ml 150 ml 350 ml BalanceBalance -500 ml 140 ml 3002 ml Constitutional: alert, oriented Psych: no complaints Neck: supple Respiratory: diminished breath sounds Cardiovascular: regular rate and rhythm Gastrointestinal: soft Skin: other (BILATERLA INGUINAL WOUNDS) Results Results 24hrs Laboratory Tests Test 02/19/19 12:02 02/19/19 13:51 02/19/19 14:21 02/19/19 17:49 Bedside Glucose 86 97 90 174 Test 02/19/19 20:45 02/20/19 05:07 02/20/19 05:08 02/20/19 08:55 Bedside Glucose 155 105 104 White Blood Count 9.5 Red Blood Count 3.39 L Hemoglobin 8.7 L Hematocrit 29.1 L Mean Corpuscular Volume 85.8 Mean Corpuscular 25.7 L Hemoglobin Mean Corpuscular 29.9 L Hemoglobin Concent Red Cell Distribution 17.6 H Width Platelet Count 318 Mean Platelet Volume 9.8 Immature Granulocytes % 0.300 Neutrophils % 84.7 H Lymphocytes % 9.7 L Monocytes % 4.7 Eosinophils % 0.3 Basophils % 0.3 Nucleated Red Blood 0.0 Cells % Immature Granulocytes # 0.030 Neutrophils # 8.1 H Lymphocytes # 0.9 Monocytes # 0.5 Eosinophils # 0.0 Basophils # 0.0 Nucleated Red Blood 0.0 Cells # Sodium Level 138 Potassium Level 4.2 Chloride Level 105 Carbon Dioxide Level 29 Anion Gap 4 L Blood Urea Nitrogen 16 Creatinine 0.48 L Est Glomerular Filtrat > 60 Rate mL/min Glucose Level 98 Calcium Level 7.9 L Medications Medication Current Medications Tramadol HCl (Ultram) 50 mg Q6H PRN PO MODERATE PAIN LEVEL 4-6; Start 02/14/19 at 05:00 Morphine Sulfate (morphine) 2 mg Q4H PRN IV SEVERE PAIN LEVEL 7-10 Last administered on 02/19/19at 20:37; Admin Dose 2 MG; Start 02/14/19 at 05:00 Acetaminophen (Tylenol Tab) 650 mg Q6H PRN PO MILD PAIN(1-3)OR ELEVATED TEMP; Start 02/14/19 at 05:00 Pantoprazole (Protonix Tab) 40 mg DAILY@06 PO Last administered on 02/20/19at 05:59; Admin Dose 40 MG; Start 02/14/19 at 06:00 Diagnostic Test (Pha) (Accu-Chek) 1 ea 02 XX ; Start 02/15/19 at 02:00 Miscellaneous Information 1 ea NOTE XX ; Start 02/14/19 at 06:30 Glucose (Glutose) 15 gm Q15M PRN PO DECREASED GLUCOSE; Start 02/14/19 at 06:30 Glucose (Glutose) 22.5 gm Q15M PRN PO DECREASED GLUCOSE; Start 02/14/19 at 06:30 Dextrose (D50w Syringe) 25 ml Q15M PRN IV DECREASED GLUCOSE; Start 02/14/19 at 06:30 Dextrose (D50w Syringe) 50 ml Q15M PRN IV DECREASED GLUCOSE; Start 02/14/19 at 06:30 Glucagon (Glucagen) 1 mg Q15M PRN IM DECREASED GLUCOSE; Start 02/14/19 at 06:30 Glucose (Glutose) 15 gm Q15M PRN BUCCAL DECREASED GLUCOSE; Start 02/14/19 at 06:30 Aspirin (Halfprin) 81 mg DAILY PO Last administered on 02/19/19at 08:34; Admin Dose 81 MG; Start 02/14/19 at 10:00 Fenofibrate (Tricor) 145 mg DAILY PO Last administered on 02/19/19at 08:36; Admin Dose 145 MG; Start 02/14/19 at 10:30 Ferrous Sulfate (Ferrous Sulfate (Ec)) 325 mg BID PO Last administered on 02/19/19 20:47; Admin Dose 325 MG; Start 02/14/19 at 10:30 Lisinopril (Zestril) 5 mg DAILY PO Last administered on 02/19/19 08:34; Admin Dose 5 MG; Start 02/14/19 at 10:30 Meropenem/Sodium Chloride 50 ml @ 100 mls/hr Q12 IVPB Last administered on 08:48; Admin Dose 100 MLS/HR; Start 02/15/19 at 13:00 Linezolid (Zyvox) 600 mg BID PO Last administered on 02/20/19 08:48; Admin Dose 600 MG; Start 02/18/19 at 21:00 Calcium Carbonate (Oyster Shell Calcium) 1.25 gm BID PO Last administered on 02/19/19 20:47; Admin Dose 1.25 GM; Start 02/19/19 at 09:00 Zinc Sulfate (Zinc Sulfate) 220 mg DAILY PO Last administered on 02/19/19 08:36; Admin Dose 220 MG; Start 02/19/19 at 09:00 Ascorbic Acid (Vitamin C) 500 mg DAILY PO ; Start 02/19/19 at 10:00 IV Flush (NS 10 ml) 10 ml Q8 IV ; Start 02/19/19 at 22:00 Insulin Aspart (Novolog Insulin Pen) NOVOLOG *MODERATE* ALGORI... Q4 SC ; Start 02/20/19 at 05:00 JESSICA MILLS Feb 20, 2019 09:30
--- NOTE | 2019-02-20 10:39 | PREAC ---
Date/Time of Note Date/Time of Note DATE: 02/20/19 TIME: 10:37 Anesthesia Eval and Record Evaluation Time Pre-Procedure Interview DATE: 02/20/19 TIME: 10:37 Age 63 Sex male NPO: 8 hrs Preoperative diagnosis anemia Planned procedure colonoscopy Past Medical History Past Medical History: Includes Cardio: HTN, Dyslipidemia, CAD Endo: Diabetes Heme: Anemia Surgery & Anesthesia Issues No known issue Meds Anticoagulation: No Beta Iesha within 24 hr: No Reason Beta Iesha not given: Pt. not on B-Iesha Reported Medications Mupirocin* (Bactroban*) 2% -22 Gram Oint...g., 1 APPLIC TOP TID, #1 TUB SITE OF APPLICATION: 07/16/18 Fenofibrate Nanocrystallized* (Fenofibrate*) 145 Mg Tablet, 145 MG PO DAILY, TAB 07/16/18 Metformin Hcl* (Metformin Hcl*) 500 Mg Tablet, 500 MG PO WITH BREAKFAST DINNE, #60 TAB 07/16/18 Aspirin* (Aspirin* EC) 81 Mg Tablet.dr, 81 MG PO DAILY, TAB 07/16/18 Ferrous Sulfate* (Ferrous Sulfate*) 325 Mg Tabec, 325 MG PO BID, TAB 07/16/18 Lisinopril* (Lisinopril*) 5 Mg Tablet, 5 MG PO DAILY, #30 TAB 07/16/18 Current Medications Tramadol HCl (Ultram) 50 mg Q6H PRN PO MODERATE PAIN LEVEL 4-6; Start 02/14/19 at 05:00 Morphine Sulfate (morphine) 2 mg Q4H PRN IV SEVERE PAIN LEVEL 7-10 Last administered on 02/19/19at 20:37; Admin Dose 2 MG; Start 02/14/19 at 05:00 Acetaminophen (Tylenol Tab) 650 mg Q6H PRN PO MILD PAIN(1-3)OR ELEVATED TEMP; Start 02/14/19 at 05:00 Pantoprazole (Protonix Tab) 40 mg DAILY@06 PO Last administered on 02/20/19at 05:59; Admin Dose 40 MG; Start 02/14/19 at 06:00 Diagnostic Test (Pha) (Accu-Chek) 1 ea 02 XX ; Start 02/15/19 at 02:00 Miscellaneous Information 1 ea NOTE XX ; Start 02/14/19 at 06:30 Glucose (Glutose) 15 gm Q15M PRN PO DECREASED GLUCOSE; Start 02/14/19 at 06:30 Glucose (Glutose) 22.5 gm Q15M PRN PO DECREASED GLUCOSE; Start 02/14/19 at 06:30 Dextrose (D50w Syringe) 25 ml Q15M PRN IV DECREASED GLUCOSE; Start 02/14/19 at 06:30 Dextrose (D50w Syringe) 50 ml Q15M PRN IV DECREASED GLUCOSE; Start 02/14/19 at 06:30 Glucagon (Glucagen) 1 mg Q15M PRN IM DECREASED GLUCOSE; Start 02/14/19 at 06:30 Glucose (Glutose) 15 gm Q15M PRN BUCCAL DECREASED GLUCOSE; Start 02/14/19 at 06:30 Aspirin (Halfprin) 81 mg DAILY PO Last administered on 02/19/19 08:34; Admin Dose 81 MG; Start 02/14/19 at 10:00 Fenofibrate (Tricor) 145 mg DAILY PO Last administered on 02/19/19 08:36; Admin Dose 145 MG; Start 02/14/19 at 10:30 Ferrous Sulfate (Ferrous Sulfate (Ec)) 325 mg BID PO Last administered on 02/19/19 20:47; Admin Dose 325 MG; Start 02/14/19 at 10:30 Lisinopril (Zestril) 5 mg DAILY PO Last administered on 02/19/19 08:34; Admin Dose 5 MG; Start 02/14/19 at 10:30 Meropenem/Sodium Chloride 50 ml @ 100 mls/hr Q12 IVPB Last administered on 02/20/19 08:48; Admin Dose 100 MLS/HR; Start 02/15/19 at 13:00 Linezolid (Zyvox) 600 mg BID PO Last administered on 02/20/19 08:48; Admin Dose 600 MG; Start 02/18/19 at 21:00 Calcium Carbonate (Oyster Shell Calcium) 1.25 gm BID PO Last administered on 02/19/19 20:47; Admin Dose 1.25 GM; Start 02/19/19 at 09:00 Zinc Sulfate (Zinc Sulfate) 220 mg DAILY PO Last administered on 02/19/19 08:36; Admin Dose 220 MG; Start 02/19/19 at 09:00 Ascorbic Acid (Vitamin C) 500 mg DAILY PO ; Start 02/19/19 at 10:00 IV Flush (NS 10 ml) 10 ml Q8 IV ; Start 02/19/19 at 22:00 Insulin Aspart (Novolog Insulin Pen) NOVOLOG *MODERATE* ALGORI... Q4 SC ; Start 02/20/19 at 05:00 Dextrose 1,000 ml @ 40 mls/hr Q24H IV ; Start 02/20/19 at 09:30 Meds reviewed: Yes Allergies Coded Allergies: Penicillins (Verified Allergy, Severe, ANAPHYLACTIC SHOCK, 07/16/18) Allergies Reviewed: Yes Labs/Studies Labs Reviewed: Reviewed by anesthesiologist Result Diagram: 02/20/19 0508 02/20/19 0508 Laboratory Tests 02/20/19 05:08 test: N/A Studies: ECG, CXR Pre-procedure Exam Last vitals Vital Signs Date Temp Pulse Resp B/P (MAP) Pulse Ox O2 O2 Flow FiO2 Time Delivery Rate 02/20/19 98.3 68 20 126/63 96 08:25 (84) 02/20/19 Room Air 02:39 02/19/19 2.0 15:48 Airway: Adequate mouth opening, Adequate thyromental dist Mallampati: Mallampati I Teeth: Normal Lung: Normal Heart: Normal ASA Physical Status ASA physical status: 3 Emergency: None Planned Anesthetic General/MAC: MAC Planned Pain Management Parenteral pain med Pre-operative Attestations Prior to commencing anesthesia and surgery, the patient was re-evaluated, there was verification of: *The patient's identity *The results of appropriate recent lab work and preoperative vital signs *The above evaluation not changing prior to induction *Anesthetic plan, risk benefits, alternative and complications discussed with patient/family; questions answered; patient/family understands, accepts and wishes to proceed. VANESSA ORONA Feb 20, 2019 10:39
[2019-02-20] MEDS ORDERED: PROPOFOL 40 ML ONE (10:40)
[2019-02-20] MEDS ORDERED: LIDOCAINE 2% (SDV) 5 ML INJ ONE (10:41)
[2019-02-20] MEDS ORDERED: DIPHENHYDRAMINE 50 MG INJ IV PRN (11:00)
[2019-02-20] MEDS ORDERED: ONDANSETRON 4 MG INJ IV PRN (11:00)
[2019-02-20] MEDS ORDERED: hydrALAzine 20 MG INJ IV PRN (11:00)
[2019-02-20] MEDS ORDERED: LABETALOL HCL 20MG INJ IV PRN (11:00)
[2019-02-20] MEDS ORDERED: METOCLOPRAMIDE 10 MG INJ IV PRN (11:00)
[2019-02-20] MEDS ORDERED: EPHEDrine 25 MG/5 ML SYG IV PRN (11:00)
[2019-02-20] MEDS ORDERED: FENTAnyl 50 MCG/ML VIAL IV PRN (11:00)
[2019-02-20] MEDS ORDERED: MIDAZOLAM 1 MG/ML 2 ML INJ IV PRN (11:00)
--- NOTE | 2019-02-20 11:29 | PAC ---
Date/Time of Note Date/Time of Note DATE: 02/20/19 TIME: 11:28 Post-Anesthesia Notes Post-Anesthesia Note Last documented vital signs Vital Signs Date Temp Pulse Resp B/P (MAP) Pulse Ox O2 O2 Flow FiO2 Time Delivery Rate 02/20/19 98.3 68 20 126/63 96 1128 (84) 02/20/19 Room Air 02:39 02/19/19 2.0 15:48 Activity: WNL Respiratory function: WNL Cardiovascular function: WNL Mental status: Baseline Pain reasonably controlled: Yes Hydration appropriate: Yes Nausea/Vomiting absent: Yes VANESSA ORONA Feb 20, 2019 11:29
--- NOTE | 2019-02-20 14:07 | PN ---
Date/Time of Note Date/Time of Note DATE: 02/20/19 TIME: 14:01 Assessment/Plan Lines/Catheters IV Catheter Type (from Nrs): Peripheral IV Assessment/Plan Chief Complaint/Hosp Course 1. Bilateral inguinal and buttock hidradenitis suppurativa s/p multiple I&Ds; spontaneously draining; manually expressed copious amount of pus -no emergent surgical intervention necessary as continues to self drain> needs tertiary center/plastics f/u for hidradenitis -continue kpad to promote abscess drainage -urology input noted -antibiotics per sensis>per ID -wound care -off loading -nutrition optimization -vit c -dc ok from surgical standpoint with plastics/tertiary center fu 2. Hypochromic anemia: s/p egd colon: no overt bleed noted -monitor and tx as needed 3. Lactic acidosis: resolved 4. Hypertension. -diet and medication control. 4. Diabetes. -Continue diet and medication control. 5. Hypercholesterolemia. -Continue diet and medication control. 6. Small hiatal hernia and esophagitis -ppi -monitor for symptoms Thank you. Patient seen and examined in collaboration with Dr. Kevin Martinez. Subjective 24 Hr Interval Summary S/p colonoscopy. No fevers, chills, sob, congested cough, cp, palpitations, henry, dizziness, n/v/d/dysuria. continues to have drainage from perineum. Exam/Review of Systems Vital Signs Vitals Vital Signs Date Temp Pulse Resp B/P (MAP) Pulse Ox O2 O2 Flow FiO2 Time Delivery Rate 02/20/19 62 16 100/45 99 Room Air 11:47 (63) 02/20/19 98.2 11:26 02/19/19 2.0 15:48 Intake and Output 02/19/19 02/19/19 02/20/19 1515:00 23:00 07:00 IntakeIntake Total 100 ml 290 ml 3352 ml OutputOutput Total 600 ml 150 ml 350 ml BalanceBalance -500 ml 140 ml 3002 ml Exam Free Text/Dictation Constitutional: alert, oriented, frail Psych: nl mood/affect, anxiety (Minimal) Head: normocephalic, atraumatic Eyes: nl conjunctiva, EOMI, nl lids, nl sclera ENMT: nl external ears & nose, nl lips & teeth, mucosa pink and moist Neck: supple, non-tender; No jvd Respiratory: normal air movement; No congested cough Cardiovascular: regular rate and rhythm; No edema Gastrointestinal: soft, non-tender; No ascites Genitourinary - Male: nl penis, other (Scrotal swelling, erythema; bilateral groin: Draining areas with malodorous purulent drainage) Musculoskeletal: nl extremities to inspection Extremities: normal pulses Neurological: nl mental status, nl speech, other; No nl strength (gen weakness) Skin: nl turgor; No rash or lesions Results Result Diagram: 02/20/19 0508 02/20/19 0508 ALEXANDRA MUNOZ NP Feb 20, 2019 14:07
--- NOTE | 2019-02-20 14:59 | CONS ---
Assessment/Plan Assessment/Plan Hospital Course (Demo Recall) ID PROGRESS NOTE CURRENT ABX: DAY # => Merrem + Zyvox 24H INTERVAL SUMMARY * Napping, VSS, NO fevers, NAD, no complaints on arousal, chart reviewed MICRO/OTHER * 02/14/19 BCX(-) * 02/14/19 ABSCESS CX (+) WOUND CULTURE Final Organism 1 ESCHERICHIA COLI QUANTITY 1+ Organism 2 PROTEUS MIRABILIS QUANTITY 1+ Organism 3 VANCO RESISTANT ENTEROCOCCUS QUANTITY ISOLATED FROM BROTH ONLY . MULTI DRUG RESISTANT ORGANISM Organism 4 CORYNEBACTER JEIKEIUM (GRP JK) QUANTITY 2+ Physical Exam Physical Exam GEN: Resting, VSS, HEENT: At, NC, normal external nasal/ear landmarks Neck: Supple RESP: Equal chest rise bilaterally, without dyspnea on observation CV: Pulse RRR, : Deferred Rectal: Deferred EXT: Warm, no cyanosis NEURO: Lethargic SKIN: See photos ID ASSESSMENT 63 M admit with 1. Hidradenitis suppurativa w/complications of bilateral scrotal/groin infected wounds and bilateral gluteal region abscesses. 2. Diabetes. 3. Hypertension. 4. Hyperlipidemia. 5. Anemia= anemia of chronic disease 6. Hypoalbuminemia. (-)MRSA Nares ABX ALLERGIES: PCN INVASIVES: PIV CURRENT ABX: DAY # > Merrem + Zyvox ID RECOMMENDATIONS/PLAN: 1. Continue ABX 2. DC PLANNING: anticipate discharge on oral Zyvox or IV daptomycin and meropenem for 10-14 days . Consultation Date/Type/Reason Admit Date/Time Feb 14, 2019 at 14:15 Initial Consult Date 02/18/19 Requesting Provider: TAMARA SMITH MD Date/Time of Note DATE: 02/20/19 TIME: 14:59 Exam/Review of Systems Exam Vitals Vital Signs Date Temp Pulse Resp B/P (MAP) Pulse Ox O2 O2 Flow FiO2 Time Delivery Rate 02/20/19 98.0 72 16 105/45 96 14:55 (65) 02/20/19 Room Air 11:47 02/19/19 2.0 15:48 Intake and Output 02/19/19 02/19/19 02/20/19 1515:00 23:00 07:00 IntakeIntake Total 100 ml 290 ml 3352 ml OutputOutput Total 600 ml 150 ml 350 ml BalanceBalance -500 ml 140 ml 3002 ml Results Result Diagram: 02/20/19 0508 02/20/19 0508 Results 24hrs Laboratory Tests Test 02/19/19 17:49 02/19/19 20:45 02/20/19 05:07 02/20/19 05:08 Bedside Glucose 174 155 105 White Blood Count 9.5 Red Blood Count 3.39 L Hemoglobin 8.7 L Hematocrit 29.1 L Mean Corpuscular Volume 85.8 Mean Corpuscular 25.7 L Hemoglobin Mean Corpuscular 29.9 L Hemoglobin Concent Red Cell Distribution 17.6 H Width Platelet Count 318 Mean Platelet Volume 9.8 Immature Granulocytes % 0.300 Neutrophils % 84.7 H Lymphocytes % 9.7 L Monocytes % 4.7 Eosinophils % 0.3 Basophils % 0.3 Nucleated Red Blood 0.0 Cells % Immature Granulocytes # 0.030 Neutrophils # 8.1 H Lymphocytes # 0.9 Monocytes # 0.5 Eosinophils # 0.0 Basophils # 0.0 Nucleated Red Blood 0.0 Cells # Sodium Level 138 Potassium Level 4.2 Chloride Level 105 Carbon Dioxide Level 29 Anion Gap 4 L Blood Urea Nitrogen 16 Creatinine 0.48 L Est Glomerular Filtrat > 60 Rate mL/min Glucose Level 98 Calcium Level 7.9 L Test 02/20/19 08:55 02/20/19 12:41 Bedside Glucose 104 112 Medications Medication Current Medications Tramadol HCl (Ultram) 50 mg Q6H PRN PO MODERATE PAIN LEVEL 4-6; Start 02/14/19 at 05:00 Morphine Sulfate (morphine) 2 mg Q4H PRN IV SEVERE PAIN LEVEL 7-10 Last administered on 02/19/19at 20:37; Admin Dose 2 MG; Start 02/14/19 at 05:00 Acetaminophen (Tylenol Tab) 650 mg Q6H PRN PO MILD PAIN(1-3)OR ELEVATED TEMP; Start 02/14/19 at 05:00 Pantoprazole (Protonix Tab) 40 mg DAILY@06 PO Last administered on 02/20/19at 05:59; Admin Dose 40 MG; Start 02/14/19 at 06:00 Diagnostic Test (Pha) (Accu-Chek) 1 ea 02 XX ; Start 02/15/19 at 02:00 Miscellaneous Information 1 ea NOTE XX ; Start 02/14/19 at 06:30 Glucose (Glutose) 15 gm Q15M PRN PO DECREASED GLUCOSE; Start 02/14/19 at 06:30 Glucose (Glutose) 22.5 gm Q15M PRN PO DECREASED GLUCOSE; Start 02/14/19 at 06:30 Dextrose (D50w Syringe) 25 ml Q15M PRN IV DECREASED GLUCOSE; Start 02/14/19 at 06:30 Dextrose (D50w Syringe) 50 ml Q15M PRN IV DECREASED GLUCOSE; Start 02/14/19 at 06:30 Glucagon (Glucagen) 1 mg Q15M PRN IM DECREASED GLUCOSE; Start 02/14/19 at 06:30 Glucose (Glutose) 15 gm Q15M PRN BUCCAL DECREASED GLUCOSE; Start 02/14/19 at 06:30 Aspirin (Halfprin) 81 mg DAILY PO Last administered on 02/19/19 08:34; Admin Dose 81 MG; Start 02/14/19 at 10:00 Fenofibrate (Tricor) 145 mg DAILY PO Last administered on 02/19/19 08:36; Admin Dose 145 MG; Start 02/14/19 at 10:30 Ferrous Sulfate (Ferrous Sulfate (Ec)) 325 mg BID PO Last administered on 02/19/19 20:47; Admin Dose 325 MG; Start 02/14/19 at 10:30 Lisinopril (Zestril) 5 mg DAILY PO Last administered on 02/19/19 08:34; Admin Dose 5 MG; Start 02/14/19 at 10:30 Meropenem/Sodium Chloride 50 ml @ 100 mls/hr Q12 IVPB Last administered on 02/20/19 08:48; Admin Dose 100 MLS/HR; Start 02/15/19 at 13:00 Linezolid (Zyvox) 600 mg BID PO Last administered on 02/20/19 08:48; Admin Dose 600 MG; Start 02/18/19 at 21:00 Calcium Carbonate (Oyster Shell Calcium) 1.25 gm BID PO Last administered on 02/19/19 20:47; Admin Dose 1.25 GM; Start 02/19/19 at 09:00 Zinc Sulfate (Zinc Sulfate) 220 mg DAILY PO Last administered on 02/19/19at 08:36; Admin Dose 220 MG; Start 02/19/19 at 09:00 Ascorbic Acid (Vitamin C) 500 mg DAILY PO ; Start 02/19/19 at 10:00 IV Flush (NS 10 ml) 10 ml Q8 IV Last administered on 02/20/19at 13:51; Admin Dose 10 ML; Start 02/19/19 at 22:00 Insulin Aspart (Novolog Insulin Pen) NOVOLOG *MODERATE* ALGORI... Q4 SC ; Start 02/20/19 at 05:00 Fentanyl (Sublimaze) 25 mcg PACU ORDER PRN IV MILD PAIN 1-3; Start 02/20/19 at 11:00; Stop 02/20/19 at 15:00 Ondansetron HCl (Zofran Inj) 4 mg PACU ORDER PRN IV NAUSEA/VOMITING; Start 02/20/19 at 11:00; Stop 02/20/19 at 15:00 Metoclopramide HCl (Reglan) 10 mg PACU ORDER PRN IV NAUSEA/VOMITING; Start 02/20/19 at 11:00; Stop 02/20/19 at 15:00 Labetalol HCl (Labetalol) 5 mg PACU ORDER PRN IV HIGH BLOOD PRESSURE; Start 02/20/19 at 11:00; Stop 02/20/19 at 15:00 Hydralazine HCl (Apresoline) 5 mg PACU ORDER PRN IV HIGH BLOOD PRESSURE; Start 02/20/19 at 11:00; Stop 02/20/19 at 15:00 Ephedrine Sulfate 5 mg PACU ORDER PRN IV BLOOD PRESSURE SUPPORT; Start 02/20/19 at 11:00; Stop 02/20/19 at 15:00 Diphenhydramine HCl (Benadryl) 25 mg PACU ORDER PRN IV .PRURITUS; Start 02/20/19 at 11:00; Stop 02/20/19 at 15:00 Midazolam HCl (Versed) 0.5 mg PACU ORDER PRN IV .ANXIETY; Start 02/20/19 at 11:00; Stop 02/20/19 at 15:00 MICHAEL HAIDER NP Feb 20, 2019 14:59
[2019-02-20] MEDS: Insulin NOVOLOG SS MODERATE Algorithm (SS with meals and bedtime) SC SCH ×2 (17:23→20:47)
[2019-02-20] MEDS ORDERED: INSULIN ASPART [NOVOLOG] 3 ML PEN SC SCH (17:35)
[2019-02-20] MEDS: morphine 2 MG INJ IV PRN (22:10)
[2019-02-21 02:00] VITALS: BP 126/70; PULSE 71; RESP 18
[2019-02-21] MEDS: ACCU-CHEK XX SCH (02:00)
[2019-02-21] MEDS ORDERED: ACCU-CHEK XX SCH (02:00)
[2019-02-21] MEDS: PANTOPRAZOLE (EC) 40 MG TAB PO SCH (05:29)
[2019-02-21] MEDS: Insulin NOVOLOG SS MODERATE Algorithm (SS with meals and bedtime) SC SCH ×4 (08:00→21:00)
[2019-02-21 08:21] VITALS: BP 124/61; PULSE 72; RESP 18
[2019-02-21] MEDS: ZYVOX 600 MG TAB PO SCH ×2 (08:45→21:35)
[2019-02-21] MEDS: MEROPENEM 1 GM/50ML(PMX) 50 ML IVPB SCH ×2 (08:45→21:34)
[2019-02-21] MEDS: ASCORBIC ACID 500 MG TAB PO SCH (08:46)
[2019-02-21] MEDS: CALCIUM CARBONATE 1.25 GM TAB PO SCH ×2 (08:46→21:35)
[2019-02-21] MEDS: FENOFIBRATE 145 MG TAB PO SCH (08:46)
[2019-02-21] MEDS: ZINC SULFATE 220 MG CAP PO SCH (08:46)
[2019-02-21] MEDS: FERROUS SULFATE (EC) 325 MG TAB PO SCH ×2 (08:46→21:35)
[2019-02-21] MEDS: LISINOPRIL 5 MG TAB PO SCH (08:47)
[2019-02-21] MEDS: ASPIRIN (EC) 81 MG TAB PO SCH (08:47)
--- NOTE | 2019-02-21 09:22 | DS ---
Date/Time of Note Date/Time of Note DATE: 02/21/19 TIME: 09:21 Discharge Summary Admission/Discharge Info Admit Date/Time Feb 14, 2019 at 14:15 Discharge Date/Time Patient Condition: Stable Consults Dr Durham, ID, dr Martinez, surgeon, Dr Perez, urology Procedures colonoscopy and EGD Hospital Course This is a 63-year-old male with a past medical history of diabetes type 2, history of coronary artery disease, hypertension, previous admissions with pe rianal, bilateral inguinal abscesses and I and D of them, and dyslipidemia who presented to ER with scrotal abscess and increased drainage from the bilateral gluteal region. Pt reported copious drainage and rotten smell out of wounds, he needs to cover them, otherwise drainage will be spilled on surrounding skin. No fever. The patient has had multiple admissions in the past, last one in 07/2018. At that time, the patient also had hidradenitis suppurativa infection. He had I and D in the past and was seen by surgical consults Dr. Martinez and dr Velazquez. The patient required pain medicine, antibiotics and wound care. Pt also was consulted by dr Perez, urology. 1. Chronic hydradenitis suppurativa 2. Scrotal abscess 3. Diabetes mellitus type 2, 4. severe anemia 5. hypertension, 6. Hx of numerous perianal, bilateral inguinal abscesses and I and D of them, 7. Dyslipidemia 8. Current every day smoker 9. History of coronary artery disease, During hospitalization pt was seen by ID specialist dr Durham and he was started on IV a/b. wound care also was done daily. We followed their instructions. Dr martinez, surgeon was consulted if pt need a surgical procedure. He reported that no emergent surgical intervention necessary as abscesses continues to drain. He recommended tertiary center/plastics f/u for excision of hidradenitis with eventual flap repairs in multi-staged operations. He offered to continue kpad to promote abscess drainage. Pt was kept off loading. His nutrition was optimized. Some microelements as Zinc and vit . C was added. Pt was admitted anemic and after conservative treatment he was given 1 unit of PRBC.Pt hypertension was under control. BS was under control as well. Dr Olivares was called to find a source of bleeding. Pt underwent colonoscopy and EGD, found internal hemorrhoids and gastritis. Pathology showed no H pylori organisms. Pt was on PPI. Dr Perez, urology input that pt does not need a surgery and scrotal abscess is a chronic hydradenitis suppurative element. Pt was placed a PICC line and he was sent home with home health IV therapy of daptomycin and cefepime for 1 week. Home Meds Active Scripts Pantoprazole* (Pantoprazole*) 40 Mg Tablet., 40 MG PO BID for 14 Days Prov:LILIANE HOBBS MD 02/22/19 Ascorbic Acid (Vitamin C) 500 Mg Tab, 500 MG PO DAILY for 30 Days, TAB Prov:JESSICA MILLS 02/21/19 Zinc Sulfate* (Zinc Sulfate*) 220 Mg Cap, 220 MG PO DAILY for 14 Days, CAP Prov:JESSICA MILLS 02/21/19 [Calcium Carbonate] 1.25 GM TAB No Conflict Check, 1.25 GM PO BID for 28 Days Prov:JESSICA MILLS 02/21/19 Reported Medications Mupirocin* (Bactroban*) 2% -22 Gram Oint...g., 1 APPLIC TOP TID, #1 TUB SITE OF APPLICATION: 07/16/18 Fenofibrate Nanocrystallized* (Fenofibrate*) 145 Mg Tablet, 145 MG PO DAILY, TAB 07/16/18 Metformin Hcl* (Metformin Hcl*) 500 Mg Tablet, 500 MG PO WITH BREAKFAST DINNE, #60 TAB 07/16/18 Aspirin* (Aspirin* EC) 81 Mg Tablet., 81 MG PO DAILY, TAB 07/16/18 Ferrous Sulfate* (Ferrous Sulfate*) 325 Mg Tabec, 325 MG PO BID, TAB 07/16/18 Lisinopril* (Lisinopril*) 5 Mg Tablet, 5 MG PO DAILY, #30 TAB 07/16/18 Follow-up Plan c/w IV ab, and wound care Primary Care Provider Not On Staff Doctor Time spent on discharge: < 30 minutes Pending Labs Laboratory Tests Test 02/20/19 12:41 02/20/19 17:23 02/20/19 20:45 02/21/19 08:44 Bedside 112 145 147 101 Glucose mg/dL (70-220) mg/dL (70-220) mg/dL (70-220) mg/dL (70-220) JESSICA MILLS Feb 21, 2019 09:22
--- NOTE | 2019-02-21 09:38 | PDOCDIS ---
Discharge Instructions DIAGNOSIS Discharge Diagnosis hydradenitis suppurative CONDITION [id number] Patient Condition: [id number] Stable HOME CARE INSTRUCTIONS: [id number] Special Diet: [id number] [id number] Activity Restrictions: [id number] Slowly Increase Activity Rest between Activity Avoid heavy lifting FOLLOW UP/APPOINTMENTS Follow-up Plan HH with IV services Daptomycin pharmacy to dose for 14 days, Meropenem 1 G q 12 hours for 14 days via PICC line HH for daily dressing changes on buttocks and groin area JESSICA MILLS Feb 21, 2019 09:38
[2019-02-21] MEDS ORDERED: ASC500 PO (09:44)
[2019-02-21] MEDS ORDERED: Calcium Carbonate PO (09:44)
[2019-02-21] MEDS ORDERED: ZINC220C5 PO (09:44)
--- NOTE | 2019-02-21 10:37 | CONS ---
Assessment/Plan Assessment/Plan Hospital Course (Demo Recall) ID PROGRESS NOTE CURRENT ABX: DAY # => Merrem + Zyvox 24H INTERVAL SUMMARY * Awake, alert, no new issues == VSS, NO fevers, NAD, no complaints MICRO/OTHER * 02/14/19 BCX(-) * 02/14/19 ABSCESS CX (+) WOUND CULTURE Final Organism 1 ESCHERICHIA COLI QUANTITY 1+ Organism 2 PROTEUS MIRABILIS QUANTITY 1+ Organism 3 VANCO RESISTANT ENTEROCOCCUS QUANTITY ISOLATED FROM BROTH ONLY . MULTI DRUG RESISTANT ORGANISM Organism 4 CORYNEBACTER JEIKEIUM (GRP JK) QUANTITY 2+ Physical Exam Physical Exam GEN: Resting, VSS, HEENT: At, NC, normal external nasal/ear landmarks Neck: Supple RESP: Equal chest rise bilaterally, without dyspnea on observation CV: Pulse RRR, : Deferred Rectal: Deferred EXT: Warm, no cyanosis NEURO: Lethargic SKIN: See photos ID ASSESSMENT 63 M admit with 1. Hidradenitis suppurativa w/complications of bilateral scrotal/groin infected wounds and bilateral gluteal region abscesses. 2. Diabetes. 3. Hypertension. 4. Hyperlipidemia. 5. Anemia= anemia of chronic disease 6. Hypoalbuminemia. (-)MRSA Nares ABX ALLERGIES: PCN INVASIVES: PIV CURRENT ABX: DAY # > Merrem + Zyvox ID RECOMMENDATIONS/PLAN: 1. Continue ABX 2. DC PLANNING: anticipate discharge on oral Zyvox or IV daptomycin and meropenem for 10-14 days . Consultation Date/Type/Reason Admit Date/Time Feb 14, 2019 at 14:15 Initial Consult Date 02/18/19 Requesting Provider: TAMARA SMITH MD Date/Time of Note DATE: 02/21/19 TIME: 10:36 Exam/Review of Systems Exam Vitals Vital Signs Date Temp Pulse Resp B/P (MAP) Pulse Ox O2 O2 Flow FiO2 Time Delivery Rate 02/21/19 97.4 72 18 124/61 99 08:21 (82) 02/21/19 Room Air 02:00 02/19/19 2.0 15:48 Intake and Output 02/20/19 02/20/19 02/21/19 1515:00 23:00 07:00 IntakeIntake Total 50 ml 650 ml 700 ml OutputOutput Total 650 ml 800 ml BalanceBalance 50 ml 0 ml -100 ml Results Result Diagram: 02/20/19 0508 02/20/19 0508 Results 24hrs Laboratory Tests Test 02/20/19 12:41 02/20/19 17:23 02/20/19 20:45 02/21/19 08:44 Bedside Glucose 112 145 147 101 Medications Medication Current Medications Tramadol HCl (Ultram) 50 mg Q6H PRN PO MODERATE PAIN LEVEL 4-6; Start 02/14/19 at 05:00 Morphine Sulfate (morphine) 2 mg Q4H PRN IV SEVERE PAIN LEVEL 7-10 Last administered on 02/20/19at 22:10; Admin Dose 2 MG; Start 02/14/19 at 05:00 Acetaminophen (Tylenol Tab) 650 mg Q6H PRN PO MILD PAIN(1-3)OR ELEVATED TEMP; Start 02/14/19 at 05:00 Pantoprazole (Protonix Tab) 40 mg DAILY@06 PO Last administered on 02/21/19at 05:29; Admin Dose 40 MG; Start 02/14/19 at 06:00 Diagnostic Test (Pha) (Accu-Chek) 1 ea 02 XX ; Start 02/15/19 at 02:00 Miscellaneous Information 1 ea NOTE XX ; Start 02/14/19 at 06:30 Glucose (Glutose) 15 gm Q15M PRN PO DECREASED GLUCOSE; Start 02/14/19 at 06:30 Glucose (Glutose) 22.5 gm Q15M PRN PO DECREASED GLUCOSE; Start 02/14/19 at 06:30 Dextrose (D50w Syringe) 25 ml Q15M PRN IV DECREASED GLUCOSE; Start 02/14/19 at 06:30 Dextrose (D50w Syringe) 50 ml Q15M PRN IV DECREASED GLUCOSE; Start 02/14/19 at 06:30 Glucagon (Glucagen) 1 mg Q15M PRN IM DECREASED GLUCOSE; Start 02/14/19 at 06:30 Glucose (Glutose) 15 gm Q15M PRN BUCCAL DECREASED GLUCOSE; Start 02/14/19 at 06:30 Aspirin (Halfprin) 81 mg DAILY PO Last administered on 02/21/19at 08:47; Admin Dose 81 MG; Start 02/14/19 at 10:00 Fenofibrate (Tricor) 145 mg DAILY PO Last administered on 02/21/19at 08:46; Admin Dose 145 MG; Start 02/14/19 at 10:30 Ferrous Sulfate (Ferrous Sulfate (Ec)) 325 mg BID PO Last administered on 02/21/19 08:46; Admin Dose 325 MG; Start 02/14/19 at 10:30 Lisinopril (Zestril) 5 mg DAILY PO Last administered on 02/21/19 08:47; Admin Dose 5 MG; Start 02/14/19 at 10:30 Meropenem/Sodium Chloride 50 ml @ 100 mls/hr Q12 IVPB Last administered on 02/21/19 08:45; Admin Dose 100 MLS/HR; Start 02/15/19 at 13:00 Linezolid (Zyvox) 600 mg BID PO Last administered on 02/21/19 08:45; Admin Dose 600 MG; Start 02/18/19 at 21:00 Calcium Carbonate (Oyster Shell Calcium) 1.25 gm BID PO Last administered on 02/21/19 08:46; Admin Dose 1.25 GM; Start 02/19/19 at 09:00 Zinc Sulfate (Zinc Sulfate) 220 mg DAILY PO Last administered on 02/21/19 08:46; Admin Dose 220 MG; Start 02/19/19 at 09:00 Ascorbic Acid (Vitamin C) 500 mg DAILY PO Last administered on 02/21/19 08:46; Admin Dose 500 MG; Start 02/19/19 at 10:00 IV Flush (NS 10 ml) 10 ml Q8 IV Last administered on 02/21/19 05:39; Admin Dose 10 ML; Start 02/19/19 at 22:00 Insulin Aspart (Novolog Insulin Pen) (Adult SC Insulin - Moder... WITH MEALS BEDTIME SC ; Start 02/20/19 at 18:05 MICHAEL HAIDER NP Feb 21, 2019 10:37
--- NOTE | 2019-02-21 11:16 | PN ---
Date/Time of Note Date/Time of Note DATE: 02/21/19 TIME: 11:14 Assessment/Plan Lines/Catheters IV Catheter Type (from Nrs): PICC Line Assessment/Plan Chief Complaint/Hosp Course 1. Bilateral inguinal and buttock hidradenitis suppurativa s/p multiple I&Ds; spontaneously draining; manually expressed copious amount of pus -no emergent surgical intervention necessary as continues to self drain> needs tertiary center/plastics f/u for hidradenitis -continue kpad to promote abscess drainage -urology input noted -antibiotics per sensis>per ID -wound care -off loading -nutrition optimization -vit c -dc ok from surgical standpoint with plastics/tertiary center fu 2. Hypochromic anemia: s/p egd colon: no overt bleed noted -monitor and tx as needed 3. Lactic acidosis: resolved 4. Hypertension. -diet and medication control. 4. Diabetes. -Continue diet and medication control. 5. Hypercholesterolemia. -Continue diet and medication control. 6. Small hiatal hernia and esophagitis -ppi -monitor for symptoms Thank you. Patient seen and examined in collaboration with Dr. Kevin Martinez. Subjective 24 Hr Interval Summary No overnight events. No fevers, chills, sob, congested cough, cp, palpitations, henry, dizziness, n/v/d/dysuria. Mod drainage from perineal area. Exam/Review of Systems Vital Signs Vitals Vital Signs Date Temp Pulse Resp B/P (MAP) Pulse Ox O2 O2 Flow FiO2 Time Delivery Rate 02/21/19 97.4 72 18 124/61 99 08:21 (82) 02/21/19 Room Air 02:00 02/19/19 2.0 15:48 Intake and Output 02/20/19 02/20/19 02/21/19 1515:00 23:00 07:00 IntakeIntake Total 50 ml 650 ml 700 ml OutputOutput Total 650 ml 800 ml BalanceBalance 50 ml 0 ml -100 ml Exam Free Text/Dictation Constitutional: alert, oriented, frail Psych: nl mood/affect, anxiety (Minimal) Head: normocephalic, atraumatic Eyes: nl conjunctiva, EOMI, nl lids, nl sclera ENMT: nl external ears & nose, nl lips & teeth, mucosa pink and moist Neck: supple, non-tender; No jvd Respiratory: normal air movement; No congested cough Cardiovascular: regular rate and rhythm; No edema Gastrointestinal: soft, non-tender; No ascites Genitourinary - Male: nl penis, other (Scrotal swelling, erythema (improved); bilateral groin: Draining areas with malodorous purulent drainage- spontaneously draining) Musculoskeletal: nl extremities to inspection Extremities: normal pulses Neurological: nl mental status, nl speech, other; No nl strength (gen weakness) Skin: nl turgor; No rash or lesions Results Result Diagram: 02/20/19 0508 02/20/19 0508 ALEXANDRA MUNOZ NP Feb 21, 2019 11:16
[2019-02-21 14:18] VITALS: BP 115/58; PULSE 70; RESP 16
[2019-02-21] MEDS: morphine 2 MG INJ IV PRN (17:52)
[2019-02-21 20:28] VITALS: BP 113/51; PULSE 65; RESP 18
[2019-02-22] MEDS: ACCU-CHEK XX SCH (02:00)
[2019-02-22 02:24] VITALS: BP 111/57; PULSE 66; RESP 18
[2019-02-22] MEDS: PANTOPRAZOLE (EC) 40 MG TAB PO SCH (06:07)
[2019-02-22 08:19] VITALS: BP 119/64; PULSE 77; RESP 18
[2019-02-22] MEDS: CALCIUM CARBONATE 1.25 GM TAB PO SCH (08:26)
[2019-02-22] MEDS: ZINC SULFATE 220 MG CAP PO SCH (08:26)
[2019-02-22] MEDS: FENOFIBRATE 145 MG TAB PO SCH (08:26)
[2019-02-22] MEDS: ASPIRIN (EC) 81 MG TAB PO SCH (08:26)
[2019-02-22] MEDS: ZYVOX 600 MG TAB PO SCH ×2 (08:26→16:21)
[2019-02-22] MEDS: FERROUS SULFATE (EC) 325 MG TAB PO SCH (08:26)
[2019-02-22] MEDS: ASCORBIC ACID 500 MG TAB PO SCH (08:26)
[2019-02-22] MEDS: LISINOPRIL 5 MG TAB PO SCH (08:27)
[2019-02-22] MEDS: MEROPENEM 1 GM/50ML(PMX) 50 ML IVPB SCH ×2 (08:27→16:21)
[2019-02-22] MEDS: Insulin NOVOLOG SS MODERATE Algorithm (SS with meals and bedtime) SC SCH ×2 (08:29→12:00)
--- NOTE | 2019-02-22 10:01 | PN ---
Date/Time of Note Date/Time of Note DATE: 02/22/19 TIME: 09:56 Assessment/Plan Lines/Catheters IV [facility]atheter Type (from [facility]): PICC Line Assessment/Plan Chief Complaint/Hosp Course 1. Bilateral inguinal and buttock hidradenitis suppurativa s/p multiple I&Ds; spontaneously draining; manually expressed copious amount of pus thus far. -no emergent surgical intervention necessary as continues to drain > needs tertiary center/plastics f/u for excision of hidradenitis with eventual flap r epairs in multi-staged operations -continue kpad to promote abscess drainage -urology input noted -antibiotics per sensitivities > per ID -wound care -off loading -nutrition optimization -vit c -dc ok from surgical standpoint with plastics/tertiary center fu 2. Hypochromic anemia: s/p egd colon: no overt bleed noted -monitor and tx as needed 3. Lactic acidosis: resolved 4. Hypertension. -diet and medication control. 5. Diabetes. -diet and medication control. 6. Hypercholesterolemia. -Continue diet and medication control. 7. Small hiatal hernia and esophagitis -diet/lifestyle optimization -ppi Thank you, Subjective 24 Hr Interval Summary No fevers, chills, sob, congested cough, cp, palpitations, henry, dizziness, nausea, vomiting, change in bowel habits, dysuria. Mod drainage from perineal area. Exam/Review of Systems Vital Signs Vitals Vital Signs Date Temp Pulse Resp B/P (MAP) Pulse Ox O2 O2 Flow FiO2 Time Delivery Rate 02/22/19 98.8 77 18 119/64 99 08:19 (82) 02/21/19 Room Air 02:00 02/19/19 2.0 15:48 Intake and Output 02/21/19 02/21/19 02/22/19 1515:00 23:00 07:00 IntakeIntake Total 50 ml 1290 ml 240 ml OutputOutput Total 400 ml 350 ml 1300 ml BalanceBalance -350 ml 940 ml -1060 ml Exam Free Text/Dictation Constitutional: alert, oriented, frail Psych: nl mood/affect, anxiety (Minimal) Head: normocephalic, atraumatic Eyes: nl conjunctiva, EOMI, nl lids, nl sclera ENMT: nl external ears & nose, nl lips & teeth, mucosa pink and moist Neck: supple, non-tender; No jvd Respiratory: normal air movement; No congested cough Cardiovascular: regular rate and rhythm; No edema Gastrointestinal: soft, non-tender; No ascites Genitourinary - Male: nl penis, other (Scrotal swelling, erythema (improved); bilateral groin: Draining areas with malodorous purulent drainage- spontaneously draining) Musculoskeletal: nl extremities to inspection Extremities: normal pulses Neurological: nl mental status, nl speech, other; No nl strength (gen weakness) Skin: nl turgor; No rash or lesions Results Result Diagram: 02/20/19 0508 02/20/19 0508 STARR MISHRA MD Feb 22, 2019 10:01
--- NOTE | 2019-02-22 12:33 | PN ---
Date/Time of Note Date/Time of Note DATE: 02/22/19 TIME: 12:28 Assessment/Plan VTE Prophylaxis Risk score (from Ns)>0 risk: 6 SCD applied (from Ns): No SCD contraindicated: other (scds) Pharmacological prophylaxis: other (scds) Lines/Catheters IV [facility] ([facility] PICC Line Central line still needed: Yes (meds) Assessment/Plan Hospital Course Summary Assessment and Plan: Assessment: Normocytic hypochromic anemia EGD 02/19/2019 Predominant non-variceal veins are noted in the midesophagus. Moderate distal esophagitis. Small hiatal hernia. Moderate to severe gastritis. Rule out H. pylori infection. Biopsies obtained. Otherwise normal EGD Colonoscopy 02/19/2019 Changes of hidradenitis suppurativa edema in the buttock area. Extremely poor preparation precludes adequate examination. Reprep and reschedul e Incomplete colonoscopy Repeat colonoscopy 02/20/2019 Suboptimal examination due to poor prep Evidence of hidradenitis suppurativa in the rectal and buttock area. No gross lesions identified in the colonic mucosa. Moderate-sized internal hemorrhoids. Bilateral inguinal and buttock hidradenitis suppurativa -Status post multiple I&D Prominent scrotal wall edema, right greater than left. Diabetes mellitus, type II, Hypertension History of numerous perianal, bilateral inguinal abscesses -Status post I&D Dyslipidemia History of coronary artery disease Plan:PPI tx- BID x4 weeks Await pathology- pt to f/u with PCP for results or can f/u with Gi to discuss pathology results Consider repeat colonoscopy within a year with a 2-day prep if patient is willing and able to cooperate GI will sign off but will be available upon reconsult as needed Patient seen in collaboration with Dr. Romero Subjective: Course reviewed with nursing staff Patient interviewed and examined All labs, imaging and other results reviewed The patient resting in bed, no over night events Discussed results of EGD/colon with patient/family all verbalized understanding. Still awaiting pathology Exam PHYSICAL EXAMINATION: GENERAL: Thin, alert & oriented x 3, in no acute distress SKIN: No lesions HEAD: Normocephalic, atraumatic, no tenderness. EYES: Pupils equal reactive to light and accommodation, no discharge. EARS/NOSE AND THROAT: Ears normal, nose normal, oropharynx normal. NECK: Supple, no masses. CHEST: Inspection within normal limits. CARDIOVASCULAR: Heart: Regular rate and rhythm RESPIRATORY: Lungs clear to auscultation GASTROINTESTINAL AND LIVER: Abdomen: Soft, non tenderness, non-distended, no hernias, no masses, no organomegaly, no ascites, no guarding, no rebound tenderness, normoactive bowel sounds. Rectal: Deferred. Dressing to bilateral buttock areas. GENITOURINARY: Male genitalia within normal limits. Dressing to bilateral inguinal areas in place thank you, scrotal edema Result Diagram: 02/20/19 0508 02/20/19 0508 Results 24hrs Laboratory Tests Test 02/21/19 17:15 02/21/19 21:34 02/22/19 05:48 02/22/19 07:57 Bedside Glucose 107 134 143 Lab Scanned BLOOD TRANSFUSION Report Test 02/22/19 12:02 Bedside Glucose 135 Exam/Review of Systems Exam Vitals Vital Signs Date Temp Pulse Resp B/P (MAP) Pulse Ox O2 O2 Flow FiO2 Time Delivery Rate 02/22/19 98.8 77 18 119/64 99 08:19 (82) 02/21/19 Room Air 02:00 02/19/19 2.0 15:48 Intake and Output 02/21/19 02/21/19 02/22/19 1515:00 23:00 07:00 IntakeIntake Total 50 ml 1290 ml 240 ml OutputOutput Total 400 ml 350 ml 1300 ml BalanceBalance -350 ml 940 ml -1060 ml Results Results 24hrs Laboratory Tests Test 02/21/19 17:15 02/21/19 21:34 02/22/19 05:48 02/22/19 07:57 Bedside Glucose 107 134 143 Lab Scanned BLOOD TRANSFUSION Report Test 02/22/19 12:02 Bedside Glucose 135 Medications Medication Current Medications Tramadol HCl (Ultram) 50 mg Q6H PRN PO MODERATE PAIN LEVEL 4-6; Start 02/14/19 at 05:00 Morphine Sulfate (morphine) 2 mg Q4H PRN IV SEVERE PAIN LEVEL 7-10 Last administered on 02/21/19at 17:52; Admin Dose 2 MG; Start 02/14/19 at 05:00 Acetaminophen (Tylenol Tab) 650 mg Q6H PRN PO MILD PAIN(1-3)OR ELEVATED TEMP; Start 02/14/19 at 05:00 Pantoprazole (Protonix Tab) 40 mg DAILY@06 PO Last administered on 02/22/19at 06:07; Admin Dose 40 MG; Start 02/14/19 at 06:00 Diagnostic Test (Pha) (Accu-Chek) 1 ea 02 XX ; Start 02/15/19 at 02:00 Miscellaneous Information 1 ea NOTE XX ; Start 02/14/19 at 06:30 Glucose (Glutose) 15 gm Q15M PRN PO DECREASED GLUCOSE; Start 02/14/19 at 06:30 Glucose (Glutose) 22.5 gm Q15M PRN PO DECREASED GLUCOSE; Start 02/14/19 at 06:30 Dextrose (D50w Syringe) 25 ml Q15M PRN IV DECREASED GLUCOSE; Start 02/14/19 at 06:30 Dextrose (D50w Syringe) 50 ml Q15M PRN IV DECREASED GLUCOSE; Start 02/14/19 at 06:30 Glucagon (Glucagen) 1 mg Q15M PRN IM DECREASED GLUCOSE; Start 02/14/19 at 06:30 Glucose (Glutose) 15 gm Q15M PRN BUCCAL DECREASED GLUCOSE; Start 02/14/19 at 06:30 Aspirin (Halfprin) 81 mg DAILY PO Last administered on 02/22/19 08:26; Admin Dose 81 MG; Start 02/14/19 at 10:00 Fenofibrate (Tricor) 145 mg DAILY PO Last administered on 02/22/19 08:26; Admin Dose 145 MG; Start 02/14/19 at 10:30 Ferrous Sulfate (Ferrous Sulfate (Ec)) 325 mg BID PO Last administered on 02/22/19 08:26; Admin Dose 325 MG; Start 02/14/19 at 10:30 Lisinopril (Zestril) 5 mg DAILY PO Last administered on 02/22/19 08:27; Admin Dose 5 MG; Start 02/14/19 at 10:30 Meropenem/Sodium Chloride 50 ml @ 100 mls/hr Q12 IVPB Last administered on 02/22/19 08:27; Admin Dose 100 MLS/HR; Start 02/15/19 at 13:00 Linezolid (Zyvox) 600 mg BID PO Last administered on 02/22/19 08:26; Admin Dose 600 MG; Start 02/18/19 at 21:00 Calcium Carbonate (Oyster Shell Calcium) 1.25 gm BID PO Last administered on 02/22/19 08:26; Admin Dose 1.25 GM; Start 02/19/19 at 09:00 Zinc Sulfate (Zinc Sulfate) 220 mg DAILY PO Last administered on 02/22/19 08:26; Admin Dose 220 MG; Start 02/19/19 at 09:00 Ascorbic Acid (Vitamin C) 500 mg DAILY PO Last administered on 02/22/19 08:26; Admin Dose 500 MG; Start 02/19/19 at 10:00 IV Flush (NS 10 ml) 10 ml Q8 IV Last administered on 02/22/19 06:07; Admin Dose 10 ML; Start 02/19/19 at 22:00 Insulin Aspart (Novolog Insulin Pen) (Adult SC Insulin - Moder... WITH MEALS BEDTIME SC Last administered on 02/22/19 08:29; Admin Dose 2 UNIT; Start 02/20/19 at 18:05 NICK WOODRUFF Feb 22, 2019 12:33
[2019-02-22] MEDS ORDERED: PANT40TA4 PO (13:44)
--- NOTE | 2019-02-22 14:04 | CONS ---
Assessment/Plan Assessment/Plan Hospital Course (Demo Recall) Awake. Looks comfortable no fevers Wound culture growing Corynebacterium group JK VRE Proteus mirabilis and E. coli Allergies: Penicillin Antimicrobials: Zyvox Merrem Physical examination: Well-nourished well-developed elderly man who isin no distress. Head atraumatic normocephalic sclera nonicteric neck is supple chest rise symmetrical breath sounds clear heart: S1-S2 abdomen soft bowel sounds present extremities no cyanosis Assessment: 1. Recurrent hidradenitis suppurativa of bilateral groins and perineum, status post multiple debridement in the past and leukocytosis secondary to #1 2. Diabetes 3. Hypertension 4. Coronary artery disease Plan: Stable, anticipate discharge on oral Zyvox or IV daptomycin and meropenem for 10-14 days, last dose 03/01 Consultation Date/Type/Reason Admit Date/Time Feb 14, 2019 at 14:15 Initial Consult Date 02/14/19 Type of Consult id Requesting Provider: TAMARA SMITH MD Date/Time of Note DATE: 02/22/19 TIME: 14:03 Exam/Review of Systems Exam Vitals Vital Signs Date Temp Pulse Resp B/P (MAP) Pulse Ox O2 O2 Flow FiO2 Time Delivery Rate 02/22/19 98.8 77 18 119/64 99 08:19 (82) 02/21/19 Room Air 02:00 02/19/19 2.0 15:48 Intake and Output 02/21/19 02/21/19 02/22/19 1515:00 23:00 07:00 IntakeIntake Total 50 ml 1290 ml 240 ml OutputOutput Total 400 ml 350 ml 1300 ml BalanceBalance -350 ml 940 ml -1060 ml Results Result Diagram: 02/20/19 0508 02/20/19 0508 Results 24hrs Laboratory Tests Test 02/21/19 17:15 02/21/19 21:34 02/22/19 05:48 02/22/19 07:57 Bedside Glucose 107 134 143 Lab Scanned BLOOD TRANSFUSION Report Test 02/22/19 12:02 Bedside Glucose 135 Medications Medication Current Medications Tramadol HCl (Ultram) 50 mg Q6H PRN PO MODERATE PAIN LEVEL 4-6; Start 02/14/19 at 05:00 Morphine Sulfate (morphine) 2 mg Q4H PRN IV SEVERE PAIN LEVEL 7-10 Last admin istered on 02/21/19at 17:52; Admin Dose 2 MG; Start 02/14/19 at 05:00 Acetaminophen (Tylenol Tab) 650 mg Q6H PRN PO MILD PAIN(1-3)OR ELEVATED TEMP; Start 02/14/19 at 05:00 Pantoprazole (Protonix Tab) 40 mg DAILY@06 PO Last administered on 02/22/19at 06:07; Admin Dose 40 MG; Start 02/14/19 at 06:00 Diagnostic Test (Pha) (Accu-Chek) 1 ea 02 XX ; Start 02/15/19 at 02:00 Miscellaneous Information 1 ea NOTE XX ; Start 02/14/19 at 06:30 Glucose (Glutose) 15 gm Q15M PRN PO DECREASED GLUCOSE; Start 02/14/19 at 06:30 Glucose (Glutose) 22.5 gm Q15M PRN PO DECREASED GLUCOSE; Start 02/14/19 at 06:30 Dextrose (D50w Syringe) 25 ml Q15M PRN IV DECREASED GLUCOSE; Start 02/14/19 at 06:30 Dextrose (D50w Syringe) 50 ml Q15M PRN IV DECREASED GLUCOSE; Start 02/14/19 at 06:30 Glucagon (Glucagen) 1 mg Q15M PRN IM DECREASED GLUCOSE; Start 02/14/19 at 06:30 Glucose (Glutose) 15 gm Q15M PRN BUCCAL DECREASED GLUCOSE; Start 02/14/19 at 06:30 Aspirin (Halfprin) 81 mg DAILY PO Last administered on 02/22/19at 08:26; Admin Dose 81 MG; Start 02/14/19 at 10:00 Fenofibrate (Tricor) 145 mg DAILY PO Last administered on 02/22/19at 08:26; Admin Dose 145 MG; Start 02/14/19 at 10:30 Ferrous Sulfate (Ferrous Sulfate (Ec)) 325 mg BID PO Last administered on 02/22/19at 08:26; Admin Dose 325 MG; Start 02/14/19 at 10:30 Lisinopril (Zestril) 5 mg DAILY PO Last administered on 02/22/19at 08:27; Admin Dose 5 MG; Start 02/14/19 at 10:30 Meropenem/Sodium Chloride 50 ml @ 100 mls/hr Q12 IVPB Last administered on 02/22/19 08:27; Admin Dose 100 MLS/HR; Start 02/15/19 at 13:00 Linezolid (Zyvox) 600 mg BID PO Last administered on 02/22/19 08:26; Admin Dose 600 MG; Start 02/18/19 at 21:00 Calcium Carbonate (Oyster Shell Calcium) 1.25 gm BID PO Last administered on 02/22/19 08:26; Admin Dose 1.25 GM; Start 02/19/19 at 09:00 Zinc Sulfate (Zinc Sulfate) 220 mg DAILY PO Last administered on 02/22/19 08:26; Admin Dose 220 MG; Start 02/19/19 at 09:00 Ascorbic Acid (Vitamin C) 500 mg DAILY PO Last administered on 02/22/19 08:26; Admin Dose 500 MG; Start 02/19/19 at 10:00 IV Flush (NS 10 ml) 10 ml Q8 IV Last administered on 02/22/19 06:07; Admin Dose 10 ML; Start 02/19/19 at 22:00 Insulin Aspart (Novolog Insulin Pen) (Adult SC Insulin - Moder... WITH MEALS BEDTIME SC Last administered on 02/22/19 08:29; Admin Dose 2 UNIT; Start 02/20/19 at 18:05 EZIO LUEVANO NP Feb 22, 2019 14:04
--- NOTE | 2019-02-22 14:29 | PN ---
Date/Time of Note Date/Time of Note DATE: 02/22/19 TIME: 14:28 Assessment/Plan VTE Prophylaxis Risk score (from Ns)>0 risk: 6 SCD applied (from [facility]): No SCD contraindicated: low risk/ambulating Pharmacological prophylaxis: NA/contraindicated Pharm contraindication: low risk/ambulating Lines/Catheters IV Catheter Type (from [facility]): PICC Line Central line still needed: Yes Assessment/Plan Assessment/Plan ospital Course 1. Chronic hydradenitis suppurativa 2. Scrotal abscess 3. Diabetes mellitus type 2, 4. severe anemia 5. hypertension, 6. Hx of numerous perianal, bilateral inguinal abscesses and I and D of them, 7. Dyslipidemia 8. Current every day smoker 9. History of coronary artery disease, Assessment/Plan - wound culture +multiple organisms with E. coli/Proteus/Corynebacterium/VRE> ID will need p.o. Zyvox and IV meropenem for 10 to 14 days -EGD showed esophagitis, small hiatal hernia, on PPI BID - cw ASA/Linsopril/fenofibrate -GI proph. Protonix -pain control -D/C PLANNING with iv dapto/meropenam Result Diagram: 02/20/19 0508 02/20/19 0508 Results 24hrs Laboratory Tests Test 02/21/19 17:15 02/21/19 21:34 02/22/19 05:48 02/22/19 07:57 Bedside Glucose 107 134 143 Lab Scanned BLOOD TRANSFUSION Report Test 02/22/19 12:02 Bedside Glucose 135 Subjective 24 Hr Interval Summary Free Text/Dictation Better. Feels better. Exam/Review of Systems Exam Vitals Vital Signs Date Temp Pulse Resp B/P (MAP) Pulse Ox O2 O2 Flow FiO2 Time Delivery Rate 02/22/19 98.8 77 18 119/64 99 08:19 (82) 02/21/19 Room Air 02:00 02/19/19 2.0 15:48 Intake and Output 02/21/19 02/21/19 02/22/19 1515:00 23:00 07:00 IntakeIntake Total 50 ml 1290 ml 240 ml OutputOutput Total 400 ml 350 ml 1300 ml BalanceBalance -350 ml 940 ml -1060 ml Results Results 24hrs Laboratory Tests Test 02/21/19 17:15 02/21/19 21:34 02/22/19 05:48 02/22/19 07:57 Bedside Glucose 107 134 143 Lab Scanned BLOOD TRANSFUSION Report Test 02/22/19 12:02 Bedside Glucose 135 Medications Medication Current Medications Tramadol HCl (Ultram) 50 mg Q6H PRN PO MODERATE PAIN LEVEL 4-6; Start 02/14/19 at 05:00 Morphine Sulfate (morphine) 2 mg Q4H PRN IV SEVERE PAIN LEVEL 7-10 Last admi nistered on 02/21/19at 17:52; Admin Dose 2 MG; Start 02/14/19 at 05:00 Acetaminophen (Tylenol Tab) 650 mg Q6H PRN PO MILD PAIN(1-3)OR ELEVATED TEMP; Start 02/14/19 at 05:00 Pantoprazole (Protonix Tab) 40 mg DAILY@06 PO Last administered on 02/22/19at 06:07; Admin Dose 40 MG; Start 02/14/19 at 06:00 Diagnostic Test (Pha) (Accu-Chek) 1 ea 02 XX ; Start 02/15/19 at 02:00 Miscellaneous Information 1 ea NOTE XX ; Start 02/14/19 at 06:30 Glucose (Glutose) 15 gm Q15M PRN PO DECREASED GLUCOSE; Start 02/14/19 at 06:30 Glucose (Glutose) 22.5 gm Q15M PRN PO DECREASED GLUCOSE; Start 02/14/19 at 06:30 Dextrose (D50w Syringe) 25 ml Q15M PRN IV DECREASED GLUCOSE; Start 02/14/19 at 06:30 Dextrose (D50w Syringe) 50 ml Q15M PRN IV DECREASED GLUCOSE; Start 02/14/19 at 06:30 Glucagon (Glucagen) 1 mg Q15M PRN IM DECREASED GLUCOSE; Start 02/14/19 at 06:30 Glucose (Glutose) 15 gm Q15M PRN BUCCAL DECREASED GLUCOSE; Start 02/14/19 at 06:30 Aspirin (Halfprin) 81 mg DAILY PO Last administered on 02/22/19at 08:26; Admin Dose 81 MG; Start 02/14/19 at 10:00 Fenofibrate (Tricor) 145 mg DAILY PO Last administered on 02/22/19at 08:26; Admin Dose 145 MG; Start 02/14/19 at 10:30 Ferrous Sulfate (Ferrous Sulfate (Ec)) 325 mg BID PO Last administered on 02/22/19 08:26; Admin Dose 325 MG; Start 02/14/19 at 10:30 Lisinopril (Zestril) 5 mg DAILY PO Last administered on 02/22/19 08:27; Admin Dose 5 MG; Start 02/14/19 at 10:30 Meropenem/Sodium Chloride 50 ml @ 100 mls/hr Q12 IVPB Last administered on 02/22/19 08:27; Admin Dose 100 MLS/HR; Start 02/15/19 at 13:00 Linezolid (Zyvox) 600 mg BID PO Last administered on 02/22/19 08:26; Admin Dose 600 MG; Start 02/18/19 at 21:00 Calcium Carbonate (Oyster Shell Calcium) 1.25 gm BID PO Last administered on 02/22/19 08:; Admin Dose 1.25 GM; Start 02/19/19 at 09:00 Zinc Sulfate (Zinc Sulfate) 220 mg DAILY PO Last administered on 02/22/19 08:; Admin Dose 220 MG; Start 02/19/19 at 09:00 Ascorbic Acid (Vitamin C) 500 mg DAILY PO Last administered on 02/22/19 08:26; Admin Dose 500 MG; Start 02/19/19 at 10:00 IV Flush (NS 10 ml) 10 ml Q8 IV Last administered on 02/22/19 06:07; Admin Dose 10 ML; Start 02/19/19 at 22:00 Insulin Aspart (Novolog Insulin Pen) (Adult SC Insulin - Moder... WITH MEALS BEDTIME SC Last administered on 02/22/19 08:29; Admin Dose 2 UNIT; Start 02/20/19 at 18:05 LILIANE HOBBS MD Feb 22, 2019 14:29
[2019-02-22 15:13] VITALS: BP 114/67; PULSE 66; RESP 18
== END 2019-02-22 17:07 | disposition home health service (06) | DRG 607 ==
LOC: E/R 23:55 → PP2 02-14 01:00 → CANRESERV 02-14 01:34 → OBSVTOIN 02-14 14:15 → PP2 02-18 11:29
PROVIDERS: ADMIT Internal Medicine Nephrology; ATTEND Internal Medicine Nephrology
PROC: 0DB68ZX Excision of Stomach, Via Natural or Artificial Opening Endoscopic, Diagnostic (ICD-10-PCS; 2019-02-19)
PROC: 0DJD8ZZ Inspection of Lower Intestinal Tract, Via Natural or Artificial Opening Endoscopic (ICD-10-PCS; 2019-02-19)
PROC: 02HV33Z Insertion of Infusion Device into Superior Vena Cava, Percutaneous Approach (ICD-10-PCS; principal; 2019-02-19 17:00)
PROC: 30233N1 Transfusion of Nonautologous Red Blood Cells into Peripheral Vein, Percutaneous Approach (ICD-10-PCS; 2019-02-19 17:00)
DX: L73.2 Hidradenitis suppurativa (principal); E44.0 Moderate protein-calorie malnutrition; Z68.1 Body mass index [BMI] 19.9 or less, adult; N49.2 Inflammatory disorders of scrotum; L02.31 Cutaneous abscess of buttock; E11.9 Type 2 diabetes mellitus without complications; D63.8 Anemia in other chronic diseases classified elsewhere; I10 Essential (primary) hypertension; E78.5 Hyperlipidemia, unspecified; F17.200 Nicotine dependence, unspecified, uncomplicated; I25.10 Atherosclerotic heart disease of native coronary artery without angina pectoris; K20.9 Esophagitis, unspecified; K44.9 Diaphragmatic hernia without obstruction or gangrene; K29.70 Gastritis, unspecified, without bleeding; D50.9 Iron deficiency anemia, unspecified; B96.4 Proteus (mirabilis) (morganii) as the cause of diseases classified elsewhere; B96.20 Unspecified Escherichia coli [E. coli] as the cause of diseases classified elsewhere; Z16.21 Resistance to vancomycin; Z16.39 Resistance to other specified antimicrobial drug
CPT/HCPCS: 36415; 36430; 36569; 71045; 76870; 76937; 80048; 80202; 82962; 83036; 83605; 83735; 84100; 84484; 85025; 85610; 85730; 86850; 86900; 86901; 86920; 87070; 87081; 88305; 88312; 93005; 96374; G0378; J1650; J1815; J2185; J2270; J3370; J7030; P9016

== ENCOUNTER 2019-04-22 17:29 | Inpatient (IN) | payer BC ==
[~2019-04-22] VITALS: Ht 180.3 cm; Wt 63.9 kg
[~2019-04-22 17:29] MED LIST changes: +ASC500 PO; +CLIN300C10 PO; +Calcium Carbonate PO; +ERGO500013 PO; +FOLI-49 PO; +LISI10TA2 PO; +PANT40TA4 PO; +VITBC PO; +ZINC220C5 PO
[2019-04-22 17:36] VITALS: Ht 180.3 cm; Wt 63.9 kg
[2019-04-22] MEDS ORDERED: AZTREONAM 1 GM/NS (PMX) 50 ML IVPB STA (18:17)
[2019-04-22] MEDS ORDERED: SODIUM CHLORIDE 0.9% 1L BAG IV* STA (18:17)
[2019-04-22] MEDS ORDERED: CLINDAMYCIN 900 MG (PMX) 50 ML IVPB SCH (18:30)
[2019-04-22] MEDS ORDERED: VANCOMYCIN 1 GM (PMX) 250 ML IVPB ONE (18:30)
[2019-04-22] MEDS ORDERED: LIDOCAINE 2%/EPI MPF (SDV) 20 ML VIAL INJ STA (18:31)
[2019-04-22] MEDS ORDERED: morphine 4 MG/ML VIAL IV STA (18:57)
[2019-04-22] MEDS ORDERED: ONDANSETRON 4 MG INJ IV STA (18:57)
[2019-04-22] MEDS ORDERED: morphine 4 MG/ML VIAL ONE (18:58)
[2019-04-22] MEDS ORDERED: ACETAMINOPHEN 325 MG TAB PO PRN ×2 (19:00→21:30)
[2019-04-22] MEDS ORDERED: ONDANSETRON 4 MG INJ IV PRN ×2 (19:00→21:30)
--- NOTE | 2019-04-22 19:18 | ERD ---
ER Documentation Chief Complaint Chief Complaint MD ref: infected abscess to buttocks; 'needs abx, IVF' HPI Patient is a 63-year-old male with diabetes who presents with "shaking a lot". He was seen by his primary doctor yesterday who told him he needed to go to the emergency department to be admitted. He has a large infection on his right lateral buttock and infection in the groin as well. He said that he has been dealing with this for "4 years". ROS All systems reviewed and are negative except as per history of present illness. Medications Home Meds Reported Medications Aspirin* (Aspirin* EC) 81 Mg Tablet.dr, 81 MG PO DAILY, TAB 04/22/19 Metformin Hcl* (Metformin Hcl*) 500 Mg Tablet, 500 MG PO WITH BREAKFAST DINNE, #60 TAB 04/22/19 Ergocalciferol (Vitamin D2) (VITAMIN D2) 50,000 Unit Capsule, 23467 UNIT PO Q7D, CAP 04/22/19 Ferrous Sulfate* (Ferrous Sulfate*) 325 Mg Tabec, 325 MG PO BID, TAB 04/22/19 Clindamycin Hcl* (Clindamycin Hcl*) 300 Mg Capsule, 300 MG PO Q8, CAP FOR 14 DAYS, START DATE 04/15/19 04/22/19 Lisinopril* (Lisinopril*) 10 Mg Tablet, 10 MG PO DAILY, #30 TAB 04/22/19 Discontinued Reported Medications Mupirocin* (Bactroban*) 2% -22 Gram Oint...g., 1 APPLIC TOP TID, #1 TUB SITE OF APPLICATION: 07/16/18 Fenofibrate Nanocrystallized* (Fenofibrate*) 145 Mg Tablet, 145 MG PO DAILY, TAB 07/16/18 Metformin Hcl* (Metformin Hcl*) 500 Mg Tablet, 500 MG PO WITH BREAKFAST DINNE, #60 TAB 07/16/18 Aspirin* (Aspirin* EC) 81 Mg Tablet.dr, 81 MG PO DAILY, TAB 07/16/18 Ferrous Sulfate* (Ferrous Sulfate*) 325 Mg Tabec, 325 MG PO BID, TAB 07/16/18 Lisinopril* (Lisinopril*) 5 Mg Tablet, 5 MG PO DAILY, #30 TAB 07/16/18 Discontinued Scripts Pantoprazole* (Pantoprazole*) 40 Mg Tablet.dr, 40 MG PO BID for 14 Days Prov:LILIANE HOBBS MD 02/22/19 Ascorbic Acid (Vitamin C) 500 Mg Tab, 500 MG PO DAILY for 30 Days, TAB Prov:JESSICA MILLS NP 02/21/19 Zinc Sulfate* (Zinc Sulfate*) 220 Mg Cap, 220 MG PO DAILY for 14 Days, CAP Prov:JESSICA MILLS NP 02/21/19 [Calcium Carbonate] 1.25 GM TAB No Conflict Check, 1.25 GM PO BID for 28 Days Prov:JESSICA MILLS NP 02/21/19 Allergies Allergies: Coded Allergies: Penicillins (Verified Allergy, Severe, ANAPHYLACTIC SHOCK, 04/22/19) PMhx/Soc History of Surgery: Yes Anesthesia Reaction: No Hx Neurological Disorder: No Hx Respiratory Disorders: No Hx Cardiac Disorders: Yes Hx Psychiatric Problems: No Hx Miscellaneous Medical Probl: No Hx Alcohol Use: No Hx Substance Use: No Hx Tobacco Use: Yes Smoking Status: Never smoker FmHx Family History: diabetes Physical Exam Vitals Vital Signs Date Temp Pulse Resp B/P (MAP) Pulse Ox O2 O2 Flow FiO2 Time Delivery Rate 04/22/19 99.0 107 22 118/58 99 17:36 (78) Physical Exam Const: No acute distress Head: Atraumatic Eyes: Normal Conjunctiva ENT: Normal External Ears, Nose and Mouth. Neck: Full range of motion. No meningismus. Resp: Clear to auscultation bilaterally Cardio: Regular rate and rhythm, no murmurs Abd: Soft, non tender, non distended. Normal bowel sounds Skin: Significant abscess with loculations to the right buttock, induration, and skin color changes, there is also cellulitic changes to the groin and the left groin and mild erythema to the scrotum, no obvious necrotizing fasciitis at this time Back: No midline or flank tenderness Ext: No cyanosis, or edema Neur: Awake and alert Psych: Normal Mood and Affect Result Diagram: 04/22/19 1832 04/22/19 183 Results 24 hrs Laboratory Tests Test 04/22/19 18:30 04/22/19 18:32 04/22/19 18:34 04/22/19 18:38 Bedside Urine pH 6.0 (LAB) Bedside Urine 2+ Protein (LAB) Bedside Urine Negative Glucose (UA) Bedside Urine Trace Ketones (LAB) Bedside Urine Blood 2+ Bedside Urine Negative Nitrite (LAB) Bedside Urine Negative Leukocyte Esterase (L White Blood Count 13.8 10^3/ul Red Blood Count 3.44 10^6/ul Hemoglobin 8.8 g/dl Hematocrit 29.1 % Mean Corpuscular 84.6 fl Volume Mean Corpuscular 25.6 pg Hemoglobin Mean Corpuscular 30.2 g/dl Hemoglobin Concent Red Cell 17.2 % Distribution Width Platelet Count 240 10^3/UL Mean Platelet 9.8 fl Volume Immature 0.400 % Granulocytes % Neutrophils % 92.1 % Lymphocytes % 4.6 % Monocytes % 2.7 % Eosinophils % 0.1 % Basophils % 0.1 % Nucleated Red Blood 0.0 /100WBC Cells % Immature 0.060 10^3/ul Granulocytes # Neutrophils # 12.7 10^3/ul Lymphocytes # 0.6 10^3/ul Monocytes # 0.4 10^3/ul Eosinophils # 0.0 10^3/ul Basophils # 0.0 10^3/ul Nucleated Red Blood 0.0 10^3/ul Cells # Prothrombin Time 15.0 Sec Prothrombin Time 1.2 Ratio INR International 1.17 Normalized Ratio Activated 29.1 Sec Partial Thromboplas t Time Sodium Level 130 mmol/L Potassium Level 5.0 mmol/L Chloride Level 94 mmol/L Carbon Dioxide 26 mmol/L Level Anion Gap 10 Blood Urea Nitrogen 32 mg/dl Creatinine 0.91 mg/dl Est Glomerular > 60 mL/min Filtrat Rate mL/min Glucose Level 146 mg/dl Calcium Level 8.2 mg/dl Total Bilirubin 0.4 mg/dl Direct Bilirubin 0.00 mg/dl Indirect Bilirubin 0.4 mg/dl Aspartate Amino 121 IU/L Transf (AST/SGOT) Alanine 52 IU/L Aminotransferase (A LT/SGPT) Alkaline 395 IU/L Phosphatase Troponin I < 0.012 ng/ml Total Protein 9.1 g/dl Albumin 3.3 g/dl Globulin 5.80 g/dl Albumin/Globulin 0.56 Ratio POC Venous Lactate 2.3 mmol/L Urine Color [place] Urine Clarity SLIGHTLY CLOUDY Urine pH 5.0 Urine Specific 1.017 [place] Urine Ketones NEGATIVE mg/dL Urine Nitrite NEGATIVE mg/dL Urine Bilirubin NEGATIVE mg/dL Urine Urobilinogen NEGATIVE mg/dL Urine Leukocyte NEGATIVE Wendi/ul Esterase Urine Microscopic 4 /HPF RBC Urine Microscopic 5 /HPF WBC Urine Bacteria FEW /HPF Urine Hyaline Casts FEW /HPF Urine Mucus FEW /HPF Urine Hemoglobin 2+ mg/dL Urine Glucose NEGATIVE mg/dL Urine Total Protein 1+ mg/dl Current Medications Medications Dose Sig/Katlyn Start Time Status Last (Trade) Ordered Route PRN Stop Time Admin Dose Reason Admin Sodium 1,920 ml BOLUS OVER 2 04/22/19 DC 04/22/19 Chloride HOURS STAT 18:17 04/22/19 18:48 (NS) IV* 18:18 Vancomycin 250 ml @ ONCE ONCE 04/22/19 HCl 125 mls/hr IVPB 18:30 04/22/19 20:29 Aztreonam 50 ml @ ONCE STAT 04/22/19 DC 04/22/19 100 mls/hr IVPB 18:17 04/22/19 18:52 18:46 Clindamycin 50 ml @ 50 ONCE IVPB 04/22/19 04/22/19 HCl/ mls/hr 18:30 04/22/19 18:52 Dextrose 19:29 Lidocaine/ 20 ml ONCE STAT 04/22/19 DC 04/22/19 Epinephrine INJ 18:31 04/22/19 18:52 (Xylocaine 18:32 2%/ Epi Mpf(Sdv)) Ondansetron 4 mg BRIDGE ORDER 04/22/19 HCl (Zofran PRN IV 19:00 04/23/19 Inj) NAUSEA/VOMITI 18:59 NG 650 mg ER BRIDGE 04/22/19 Acetaminophen PRN PO 19:00 04/23/19 (Tylenol .MILD PAIN 18:59 Tab) 1-3 OR TEMP Morphine 4 mg ONCE STAT 04/22/19 DC 04/22/19 Sulfate IV 18:57 04/22/19 18:59 (morphine) 18:58 Ondansetron 4 mg ONCE STAT 04/22/19 DC 04/22/19 HCl (Zofran IV 18:57 04/22/19 18:59 Inj) 18:58 Morphine 4 mg STK-MED 04/22/19 DC Sulfate ONCE .ROUTE 18:58 04/22/19 (morphine) 18:59 Procedures/MDM Sepsis Documentation: Patient's infectious symptoms have not stabilized and the patient is at risk of rapid decompensation. The patient will be admitted for careful hydration, antibiotic therapy, and infectious source control. SEVERE SEPSIS CRITERIA: Infectious source: Abscess and cellulitis End organ damage indicated by: Lactate greater than 2 SEPSIS MANAGEMENT Time of recognition of sepsis: 1833. Time of recognition of severe sepsis: 1833. Time of recognition of septic shock: No septic shock at this time. 3 HOUR BUNDLE Blood cultures x 2 before broad-spectrum antibiotics: Yes 30 ml/kg NS bolus completed Initial lactate 2.3 Repeat lactate pending SEPTIC SHOCK ASSESSMENT: No lactic acid > 4.0 No persistent hypotension (SBP < 90 or 40 mmHg drop, MAP < 65) despite 30 mL/kg IV fluid bolus VOLUME REASSESSMENT FOR SEPTIC SHOCK: No septic shock at this time PERSISTENT HYPOTENSION TREATMENT: Comfort care no Central line not Required Vasopressor started not required I considered further perfusion assessment with CVP measurement, SCVO2, bedside ultrasound volume assessment, passive leg raise, trial of further fluid bolus. And proceeded with 30 ml/kg fluid bolus of NSS, broad spectrum antibiotics, and admission. Patient had incision and drainage done as well per Dr. Marques. I also spoke with Dr. Marques who said he was taken to the operating room tomorrow for more definitive treatment. I spoke with Dr. Gomez for admission to a medical surgical bed. The patient was given vancomycin, aztreonam, and clindamycin. CRITICAL CARE Critical care time 35 minutes Emergent fluid management while maintaining close respiratory support. Provision of immediate and broad-spectrum antibiotic therapy. Simultaneous ass essment for possible sources in order to direct targeted therapy. Consideration for invasive and chemical support to prevent cardiopulmonary collapse. Critical care time is independent of procedures performed. Abscess Incision and Drainage with irrigation by me: Location: Right buttock Anesthesia: Local 1% Lidocaine with epinephrine Technique: Irrigated. Disrupted loculations w/ instrumentation Packing: None Complications: Neurovascularly intact post procedure Departure Diagnosis: Primary Impression: Severe sepsis Additional Impression: Abscess Condition: Serious FEDERICO CAMPOS MD Apr 22, 2019 19:18
[2019-04-22] MEDS ORDERED: morphine 2 MG INJ IV STA (21:24)
[2019-04-22] MEDS ORDERED: morphine 4 MG/ML VIAL IV PRN (21:30)
[2019-04-22] MEDS ORDERED: LEVOFLOXACIN 500MG/D5W (PMX) 100 ML IVPB SCH (21:30)
[2019-04-22] MEDS ORDERED: VANCOMYCIN IV PER PHARMACY XX SCH (21:30)
[2019-04-22] MEDS ORDERED: ERGOCALCIFEROL 50,000 UNIT CAP PO SCH (21:30)
[2019-04-22 22:00] VITALS: BP 114/58; PULSE 100; RESP 18
[2019-04-22] MEDS ORDERED: VANCOMYCIN 1 GM 250 ML IVPB ONE (22:00)
[2019-04-22] MEDS: DEXTROSE 5%-0.9% NACL 1,000 ML IV SCH (22:13)
[2019-04-22] MEDS: FERROUS SULFATE (EC) 325 MG TAB PO SCH (23:11)
[2019-04-23] MEDS: INSULIN ASPART [NOVOLOG] 3 ML PEN SC SCH ×6 (01:00→21:00)
[2019-04-23 01:55] VITALS: BP 103/51; PULSE 90; RESP 18
[2019-04-23] MEDS ORDERED: ACCU-CHEK XX SCH (07:00)
[2019-04-23] MEDS: ACCU-CHEK XX SCH ×3 (07:00→15:00)
[2019-04-23 07:26] VITALS: BP 102/50; PULSE 76; RESP 18
[2019-04-23] MEDS ORDERED: INSULIN ASPART [NOVOLOG] 3 ML PEN SC SCH ×2 (08:00)
[2019-04-23] MEDS: metFORMIN 500 MG TAB PO SCH ×2 (08:00→17:14)
[2019-04-23] MEDS: BISACODYL (EC) 5 MG TAB PO SCH (08:20)
[2019-04-23] MEDS: LISINOPRIL 10 MG TAB PO SCH (08:21)
[2019-04-23] MEDS: ASPIRIN (EC) 81 MG TAB PO SCH (08:21)
[2019-04-23] MEDS: POLYETHYLENE GLYCOL 17 GM PACKET PO SCH (08:21)
[2019-04-23] MEDS: FERROUS SULFATE (EC) 325 MG TAB PO SCH ×2 (08:21→21:16)
[2019-04-23] MEDS ORDERED: IOHEXOL 300MG/ML 150 ML BTL ONE (09:59)
[2019-04-23] MEDS ORDERED: SOD CHLORIDE 0.9% 100 ML ONE (09:59)
[2019-04-23] MEDS ORDERED: VANCOMYCIN 750 MG (PMX) 250 ML IVPB SCH (10:00)
[2019-04-23] MEDS: morphine 2 MG INJ IV PRN ×2 (12:04→22:59)
--- NOTE | 2019-04-23 12:06 | CONS ---
Assessment/Plan Assessment/Plan Assessment/Plan (Daily) This is probably the most advanced case of hidradenitis that I have ever seen I fully agree that the patient will need to be ultimately be evaluated in a tertiary center for definitive surgery with plastic surgical evaluation, skin flaps and multiple surgeries. I do not have any surgical recommendations at this time other than continuance of IV antibiotics and possibly continuance of IV antibiotics with home health as an outpatient. Arrangements should be made for transfer and evaluation when available. Consultation Date/Type/Reason Admit Date/Time Apr 22, 2019 at 19:37 Date of Consultation: Apr 23, 2019 Type of Consult General surgery Reason for Consultation Bilateral inguinal and buttock hidradenitis suppurativa (severe) Date/Time of Note DATE: 04/23/19 TIME: 11:55 Hx of Present Illness The patient is a 63-year-old gentleman who has known bilateral inguinal and buttock hidradenitis. He was seen here 2 months ago for the same problem. General surgical consultation suggested that the patient will need to be evaluated in a tertiary care center with multiple consultants including plastic surgery and staged surgical excisions with flap repairs. This was the plan 2 months ago and the patient was discharged. He came into the emergency room yesterday because his primary care physician told him that he needs intravenous antibiotics. Surgical consultation was requested because of the purulent discharge noted from both groins and buttocks. The patient was sent down to IR today for possible IR drainage. There was no drainable abscess. This is all hidradenitis. Review of systems HEENT: Unremarkable Pulmonary: No history of asthma, pneumonia or shortness of breath Cardiac: No history of chest pain, SD or arrhythmia GI: Unremarkable : As in the HPI Past Medical History Medical History: other (Hidradenitis suppurativa) Home Meds Reported Medications Aspirin* (Aspirin* EC) 81 Mg Tablet.dr, 81 MG PO DAILY, TAB 04/22/19 Metformin Hcl* (Metformin Hcl*) 500 Mg Tablet, 500 MG PO WITH BREAKFAST DINNE, #60 TAB 04/22/19 Ergocalciferol (Vitamin D2) (VITAMIN D2) 50,000 Unit Capsule, 59056 UNIT PO Q7D, CAP 04/22/19 Ferrous Sulfate* (Ferrous Sulfate*) 325 Mg Tabec, 325 MG PO BID, TAB 04/22/19 Clindamycin Hcl* (Clindamycin Hcl*) 300 Mg Capsule, 300 MG PO Q8, CAP FOR 14 DAYS, START DATE 04/15/19 04/22/19 Lisinopril* (Lisinopril*) 10 Mg Tablet, 10 MG PO DAILY, #30 TAB 04/22/19 Discontinued Reported Medications Mupirocin* (Bactroban*) 2% -22 Gram Oint...g., 1 APPLIC TOP TID, #1 TUB SITE OF APPLICATION: 07/16/18 Fenofibrate Nanocrystallized* (Fenofibrate*) 145 Mg Tablet, 145 MG PO DAILY, TAB 07/16/18 Metformin Hcl* (Metformin Hcl*) 500 Mg Tablet, 500 MG PO WITH BREAKFAST DINNE, #60 TAB 07/16/18 Aspirin* (Aspirin* EC) 81 Mg Tablet.dr, 81 MG PO DAILY, TAB 07/16/18 Ferrous Sulfate* (Ferrous Sulfate*) 325 Mg Tabec, 325 MG PO BID, TAB 07/16/18 Lisinopril* (Lisinopril*) 5 Mg Tablet, 5 MG PO DAILY, #30 TAB 07/16/18 Discontinued Scripts Pantoprazole* (Pantoprazole*) 40 Mg Tablet.dr, 40 MG PO BID for 14 Days Prov:LILIANE HOBBS MD 02/22/19 Ascorbic Acid (Vitamin C) 500 Mg Tab, 500 MG PO DAILY for 30 Days, TAB Prov:JESSICA MILLS NP 02/21/19 Zinc Sulfate* (Zinc Sulfate*) 220 Mg Cap, 220 MG PO DAILY for 14 Days, CAP Prov:JESSICA MILLS NP 02/21/19 [Calcium Carbonate] 1.25 GM TAB No Conflict Check, 1.25 GM PO BID for 28 Days Prov:JESSICA MILLS NP 02/21/19 Medications Current Medications Ondansetron HCl (Zofran Inj) 4 mg BRIDGE ORDER PRN IV NAUSEA/VOMITING; Start 04/22/19 at 19:00; Stop 04/23/19 at 18:59 Acetaminophen (Tylenol Tab) 650 mg ER BRIDGE PRN PO .MILD PAIN 1-3 OR TEMP; Start 04/22/19 at 19:00; Stop 04/23/19 at 18:59 Levofloxacin/ Dextrose 100 ml @ 100 mls/hr Q24H IVPB Last administered on 04/22/19at 23:11; Admin Dose 100 MLS/HR; Start 04/22/19 at 21:30 Acetaminophen (Tylenol Tab) 650 mg Q6H PRN PO MILD PAIN(1-3)OR ELEVATED TEMP; Start 04/22/19 at 21:30 Morphine Sulfate (morphine) 2 mg Q4H PRN IV MODERATE PAIN LEVEL 4-6; Start 04/22/19 at 21:30 Morphine Sulfate (morphine) 4 mg Q4H PRN IV SEVERE PAIN LEVEL 7-10; Start 04/22/19 at 21:30 Ondansetron HCl (Zofran Inj) 4 mg Q6H PRN IV NAUSEA AND/OR VOMITING; Start 04/22/19 at 21:30 Dextrose/Sodium Chloride 1,000 ml @ 50 mls/hr Q20H IV Last administered on 04/22/19at 22:13; Admin Dose 50 MLS/HR; Start 04/22/19 at 21:30 Bisacodyl (Dulcolax) 5 mg DAILY PO ; Start 04/23/19 at 09:00 Polyethylene Glycol (Miralax) 17 gm DAILY PO ; Start 04/23/19 at 09:00 Aspirin (Halfprin) 81 mg DAILY PO ; Start 04/23/19 at 09:00 Ferrous Sulfate (Ferrous Sulfate (Ec)) 325 mg BID PO Last administered on 04/22/19at 23:11; Admin Dose 325 MG; Start 04/22/19 at 21:30 Lisinopril (Zestril) 10 mg DAILY PO ; Start 04/23/19 at 09:00 Metformin HCl (Glucophage) 500 mg WITH BREAKFAST DINNE PO ; Start 04/23/19 at 08:00 Ergocalciferol (Drisdol) 50,000 unit Q7D PO ; Start 04/24/19 at 21:30 Diagnostic Test (Pha) (Accu-Chek) 1 ea Q4H XX ; Start 04/23/19 at 07:00 Insulin Aspart (Novolog Insulin Pen) NOVOLOG *MODERATE* ALGORI... Q4H SC ; Start 04/23/19 at 01:00 Allergies: Coded Allergies: Penicillins (Verified Allergy, Severe, ANAPHYLACTIC SHOCK, 04/22/19) Past Surgical History Past Surgical Hx: other (Several past histories of incision and drainage) Family History Significant Family History: no pertinent family hx Social History Smoking Status: Never smoker Exam/Review of Systems Exam Vitals Vital Signs Date Temp Pulse Resp B/P (MAP) Pulse Ox O2 O2 Flow FiO2 Time Delivery Rate 04/23/19 97.9 76 18 102/50 98 Room Air 07:26 (67) Intake and Output 04/22/19 04/22/19 04/23/19 1515:00 23:00 07:00 IntakeIntake Total 2020 ml 650 ml OutputOutput Total 400 ml BalanceBalance 2020 ml 250 ml Constitutional: alert, oriented Psych: no complaints Head: normocephalic ENMT: nl external ears & nose Neck: supple Respiratory: clear to auscultation Cardiovascular: regular rate and rhythm Genitourinary - Male: other (Extensive groin hidradenitis with multiple sites of purulent discharge. Similar findings on both buttocks.) Extremities: normal pulses Neurological: HEALTH SCIENCE SPECIALIST II-XII intact Results Result Diagram: 04/23/19 0605 04/23/19 0605 Results 24hrs Laboratory Tests Test 04/22/19 18:30 04/22/19 18:32 04/22/19 18:34 04/22/19 18:38 Bedside Urine pH 6.0 (LAB) Bedside Urine 2+ H Protein (LAB) Bedside Urine Negative Glucose (UA) Bedside Urine Trace H Ketones (LAB) Bedside Urine 2+ H Blood Bedside Urine Negative Nitrite (LAB) Bedside Urine Negative Leukocyte Esterase (L White Blood Count 13.8 #H Red Blood Count 3.44 L Hemoglobin 8.8 L Hematocrit 29.1 L Mean Corpuscular 84.6 Volume Mean Corpuscular 25.6 L Hemoglobin Mean Corpuscular 30.2 L Hemoglobin Concent Red Cell 17.2 H Distribution Width Platelet Count 240 # Mean Platelet 9.8 Volume Immature 0.400 Granulocytes % Neutrophils % 92.1 H Lymphocytes % 4.6 L Monocytes % 2.7 Eosinophils % 0.1 Basophils % 0.1 Nucleated Red 0.0 Blood Cells % Immature 0.060 H Granulocytes # Neutrophils # 12.7 H Lymphocytes # 0.6 L Monocytes # 0.4 Eosinophils # 0.0 Basophils # 0.0 Nucleated Red 0.0 Blood Cells # Prothrombin Time 15.0 H Prothrombin Time 1.2 Ratio INR International 1.17 Normalized Ratio Activated 29.[address] Time Sodium Level 130 L Potassium Level 5.0 Chloride Level 94 L Carbon Dioxide 26 Level Anion Gap 10 Blood Urea 32 H Nitrogen Creatinine 0.91 Est Glomerular > 60 Filtrat Rate mL/min Glucose Level 146 Calcium Level 8.2 L Total Bilirubin 0.4 Direct Bilirubin 0.00 Indirect Bilirubin 0.4 Aspartate Amino 121 H Transf (AST/SGOT) Alanine 52 Aminotransferase ( ALT/SGPT) Alkaline 395 H Phosphatase Troponin I < 0.012 Total Protein 9.1 H Albumin 3.3 Globulin 5.80 H Albumin/Globulin 0.56 Ratio POC Venous Lactate 2.3 *H Urine Color [place] Urine Clarity SLIGHTLY CLOUDY A Urine pH 5.0 Urine Specific 1.017 [place] Urine Ketones NEGATIVE Urine Nitrite NEGATIVE Urine Bilirubin NEGATIVE Urine Urobilinogen NEGATIVE Urine Leukocyte NEGATIVE Esterase Urine Microscopic 4 RBC Urine Microscopic 5 WBC Urine Bacteria FEW A Urine Hyaline FEW A Casts Urine Mucus FEW A Urine Hemoglobin 2+ H Urine Glucose NEGATIVE Urine Total 1+ H Protein Test 04/22/19 21:02 04/22/19 22:47 04/23/19 01:10 04/23/19 05:06 Lactic Acid Level 1.0 1.1 Bedside Glucose 126 113 Test 04/23/19 06:05 04/23/19 08:33 White Blood Count 8.4 # Red Blood Count 2.80 L Hemoglobin 7.0 #L Hematocrit 23.5 L Mean Corpuscular 83.9 Volume Mean Corpuscular 25.0 L Hemoglobin Mean Corpuscular 29.8 L Hemoglobin Concent Red Cell 17.2 H Distribution Width Platelet Count 208 Mean Platelet 9.7 Volume Immature 0.500 H Granulocytes % Neutrophils % 84.7 H Lymphocytes % 9.3 L Monocytes % 5.0 Eosinophils % 0.4 Basophils % 0.1 Nucleated Red 0.0 Blood Cells % Immature 0.040 H Granulocytes # Neutrophils # 7.1 Lymphocytes # 0.8 Monocytes # 0.4 Eosinophils # 0.0 Basophils # 0.0 Nucleated Red 0.0 Blood Cells # Sodium Level 133 L Potassium Level 4.0 Chloride Level 103 Carbon Dioxide 28 Level Anion Gap 2 #L Blood Urea 20 # Nitrogen Creatinine 0.84 Est Glomerular > 60 Filtrat Rate mL/min Glucose Level 104 # Calcium Level 7.6 L Total Bilirubin 0.4 Direct Bilirubin 0.00 Indirect Bilirubin 0.4 Aspartate Amino 57 #H Transf (AST/SGOT) Alanine 45 Aminotransferase ( ALT/SGPT) Alkaline 356 H Phosphatase Total Protein 7.0 # Albumin 2.4 L Globulin 4.60 H Albumin/Globulin 0.52 Ratio Bedside Glucose 114 Medications Medication Current Medications Ondansetron HCl (Zofran Inj) 4 mg BRIDGE ORDER PRN IV NAUSEA/VOMITING; Start 04/22/19 at 19:00; Stop 04/23/19 at 18:59 Acetaminophen (Tylenol Tab) 650 mg ER BRIDGE PRN PO .MILD PAIN 1-3 OR TEMP; Start 04/22/19 at 19:00; Stop 04/23/19 at 18:59 Levofloxacin/ Dextrose 100 ml @ 100 mls/hr Q24H IVPB Last administered on 04/22/19at 23:11; Admin Dose 100 MLS/HR; Start 04/22/19 at 21:30 Acetaminophen (Tylenol Tab) 650 mg Q6H PRN PO MILD PAIN(1-3)OR ELEVATED TEMP; Start 04/22/19 at 21:30 Morphine Sulfate (morphine) 2 mg Q4H PRN IV MODERATE PAIN LEVEL 4-6; Start 04/22/19 at 21:30 Morphine Sulfate (morphine) 4 mg Q4H PRN IV SEVERE PAIN LEVEL 7-10; Start 04/22/19 at 21:30 Ondansetron HCl (Zofran Inj) 4 mg Q6H PRN IV NAUSEA AND/OR VOMITING; Start 04/22/19 at 21:30 Dextrose/Sodium Chloride 1,000 ml @ 50 mls/hr Q20H IV Last administered on 04/22/19at 22:13; Admin Dose 50 MLS/HR; Start 04/22/19 at 21:30 Bisacodyl (Dulcolax) 5 mg DAILY PO ; Start 04/23/19 at 09:00 Polyethylene Glycol (Miralax) 17 gm DAILY PO ; Start 04/23/19 at 09:00 Aspirin (Halfprin) 81 mg DAILY PO ; Start 04/23/19 at 09:00 Ferrous Sulfate (Ferrous Sulfate (Ec)) 325 mg BID PO Last administered on 04/22/19at 23:11; Admin Dose 325 MG; Start 04/22/19 at 21:30 Lisinopril (Zestril) 10 mg DAILY PO ; Start 04/23/19 at 09:00 Metformin HCl (Glucophage) 500 mg WITH BREAKFAST DINNE PO ; Start 04/23/19 at 08:00 Ergocalciferol (Drisdol) 50,000 unit Q7D PO ; Start 04/24/19 at 21:30 Diagnostic Test (Pha) (Accu-Chek) 1 ea Q4H XX ; Start 04/23/19 at 07:00 Insulin Aspart (Novolog Insulin Pen) NOVOLOG *MODERATE* ALGORI... Q4H SC ; Start 04/23/19 at 01:00 EJ ALBERTO MD Apr 23, 2019 12:05
--- NOTE | 2019-04-23 13:03 | HP ---
Date/Time of Note Date/Time of Note DATE: 04/23/19 TIME: 12:59 Assessment/Plan VTE Prophylaxis Risk score (from [facility])>0 risk: 8 SCD applied (from [facility]): Yes Pharmacological prophylaxis: NA/contraindicated Pharm contraindication: anticoag not tolerated Lines/Catheters IV Catheter Type (from [facility]): Peripheral IV Urinary Cath still in place: No Assessment/Plan Hospital Course 1. Severe hidradenitis suppurativa in inguinal area bilaterally and buttocks area. Patient just completed course of antibiotics for 12 weeks started in February 21, 2019. 2. Severe anemia 3. Sepsis 4. Hyponatremia 5. Hypocalcemia Assessment/Plan -Surgical consult Dr. Marques -GI prophylaxis Protonix -Wound care -Patient refused incision and drainage -DVT prophylaxis statin compressive devices, unable to utilize chemicals due to anemia Continue with IV antibiotics -workshop manager to evaluate for tertiary center and plastic surgeon -Wound culture gram-negative rods -Transfuse 1 unit PRBC -Contact isolation for VRE urine -Management find a home health agency for wound care and 12 weeks IV antibiotics Result Diagram: 04/23/19 0604/23/19 0605 Results 24hrs Laboratory Tests Test 04/22/19 18:30 04/22/19 18:32 04/22/19 18:34 04/22/19 18:38 Bedside Urine pH 6.0 (LAB) Bedside Urine 2+ H Protein (LAB) Bedside Urine Negative Glucose (UA) Bedside Urine Trace H Ketones (LAB) Bedside Urine 2+ H Blood Bedside Urine Negative Nitrite (LAB) Bedside Urine Negative Leukocyte Esterase (L White Blood Count 13.8 #H Red Blood Count 3.44 L Hemoglobin 8.8 L Hematocrit 29.1 L Mean Corpuscular 84.6 Volume Mean Corpuscular 25.6 L Hemoglobin Mean Corpuscular 30.2 L Hemoglobin Concent Red Cell 17.2 H Distribution Width Platelet Count 240 # Mean Platelet 9.8 Volume Immature 0.400 Granulocytes % Neutrophils % 92.1 H Lymphocytes % 4.6 L Monocytes % 2.7 Eosinophils % 0.1 Basophils % 0.1 Nucleated Red 0.0 Blood Cells % Immature 0.060 H Granulocytes # Neutrophils # 12.7 H Lymphocytes # 0.6 L Monocytes # 0.4 Eosinophils # 0.0 Basophils # 0.0 Nucleated Red 0.0 Blood Cells # Prothrombin Time 15.0 H Prothrombin Time 1.2 Ratio INR International 1.17 Normalized Ratio Activated 29.[address] Time Sodium Level 130 L Potassium Level 5.0 Chloride Level 94 L Carbon Dioxide 26 Level Anion Gap 10 Blood Urea 32 H Nitrogen Creatinine 0.91 Est Glomerular > 60 Filtrat Rate mL/min Glucose Level 146 Calcium Level 8.2 L Total Bilirubin 0.4 Direct Bilirubin 0.00 Indirect Bilirubin 0.4 Aspartate Amino 121 H Transf (AST/SGOT) Alanine 52 Aminotransferase ( ALT/SGPT) Alkaline 395 H Phosphatase Troponin I < 0.012 Total Protein 9.1 H Albumin 3.3 Globulin 5.80 H Albumin/Globulin 0.56 Ratio POC Venous Lactate 2.3 *H Urine Color [place] Urine Clarity SLIGHTLY CLOUDY A Urine pH 5.0 Urine Specific 1.017 [place] Urine Ketones NEGATIVE Urine Nitrite NEGATIVE Urine Bilirubin NEGATIVE Urine Urobilinogen NEGATIVE Urine Leukocyte NEGATIVE Esterase Urine Microscopic 4 RBC Urine Microscopic 5 WBC Urine Bacteria FEW A Urine Hyaline FEW A Casts Urine Mucus FEW A Urine Hemoglobin 2+ H Urine Glucose NEGATIVE Urine Total 1+ H Protein Test 04/22/19 21:02 04/22/19 22:47 04/23/19 01:10 04/23/19 05:06 Lactic Acid Level 1.0 1.1 Bedside Glucose 126 113 Test 04/23/19 06:05 04/23/19 08:33 04/23/19 12:05 White Blood Count 8.4 # Red Blood Count 2.80 L Hemoglobin 7.0 #L Hematocrit 23.5 L Mean Corpuscular 83.9 Volume Mean Corpuscular 25.0 L Hemoglobin Mean Corpuscular 29.8 L Hemoglobin Concent Red Cell 17.2 H Distribution Width Platelet Count 208 Mean Platelet 9.7 Volume Immature 0.500 H Granulocytes % Neutrophils % 84.7 H Lymphocytes % 9.3 L Monocytes % 5.0 Eosinophils % 0.4 Basophils % 0.1 Nucleated Red 0.0 Blood Cells % Immature 0.040 H Granulocytes # Neutrophils # 7.1 Lymphocytes # 0.8 Monocytes # 0.4 Eosinophils # 0.0 Basophils # 0.0 Nucleated Red 0.0 Blood Cells # Sodium Level 133 L Potassium Level 4.0 Chloride Level 103 Carbon Dioxide 28 Level Anion Gap 2 #L Blood Urea 20 # Nitrogen Creatinine 0.84 Est Glomerular > 60 Filtrat Rate mL/min Glucose Level 104 # Calcium Level 7.6 L Total Bilirubin 0.4 Direct Bilirubin 0.00 Indirect Bilirubin 0.4 Aspartate Amino 57 #H Transf (AST/SGOT) Alanine 45 Aminotransferase ( ALT/SGPT) Alkaline 356 H Phosphatase Total Protein 7.0 # Albumin 2.4 L Globulin 4.60 H Albumin/Globulin 0.52 Ratio Bedside Glucose 114 156 HPI/ROS Admit Date/Time Admit Date/Time Apr 22, 2019 at 19:37 Hx of Present Illness This 63-year-old patient with numerous admission to different hospitals with hidradenitis suppurativa, severe form, was admitted from home for shaking and chills for 4 days. Patient was seen in primary care office and was sent for evaluation to emergency room [facility]. Patient had similar admission 3 months ago with placement of PICC line in his arm and antibiotics for 12 weeks. Patient had a home health and completed course of antibiotics as recommended. Numerous times we tried to place patient in tertiary center for the plastic surgery consult but was not able to perform the action because his insurance does not have plastic surgery option. ROS Constitutional: has fever and chills. EYE: No eye disease. No visual problems. CARDIOVASCULAR: No chest pain. No tachycardia. No Palpitation. RESPIRATORY: No breathing problems. No COPD or disease of respiration. GASTROINTESTINAL: No Nausea. No Vomiting. No constipation. Endocrine: No excessive thirst, No polyuria, No hot intolerance. No cold intolerance. MUSCULO-SKELETAL: constant bapin in inguinal area and buttocks. NEUROLOGICAL: Alert oriented in person, place, time and situation. No Headache, Confusion. No Seizures. No problem with balance. PMH/Family/Social Past Medical History Medical History: other (Hidradenitis suppurativa) Medications Current Medications Ondansetron HCl (Zofran Inj) 4 mg BRIDGE ORDER PRN IV NAUSEA/VOMITING; Start 04/22/19 at 19:00; Stop 04/23/19 at 18:59 Acetaminophen (Tylenol Tab) 650 mg ER BRIDGE PRN PO .MILD PAIN 1-3 OR TEMP; Start 04/22/19 at 19:00; Stop 04/23/19 at 18:59 Levofloxacin/ Dextrose 100 ml @ 100 mls/hr Q24H IVPB Last administered on 04/22/19at 23:11; Admin Dose 100 MLS/HR; Start 04/22/19 at 21:30 Acetaminophen (Tylenol Tab) 650 mg Q6H PRN PO MILD PAIN(1-3)OR ELEVATED TEMP; Start 04/22/19 at 21:30 Morphine Sulfate (morphine) 2 mg Q4H PRN IV MODERATE PAIN LEVEL 4-6 Last administered on 04/23/19at 12:04; Admin Dose 2 MG; Start 04/22/19 at 21:30 Morphine Sulfate (morphine) 4 mg Q4H PRN IV SEVERE PAIN LEVEL 7-10; Start 04/22/19 at 21:30 Ondansetron HCl (Zofran Inj) 4 mg Q6H PRN IV NAUSEA AND/OR VOMITING; Start 04/22/19 at 21:30 Dextrose/Sodium Chloride 1,000 ml @ 50 mls/hr Q20H IV Last administered on 04/22/19at 22:13; Admin Dose 50 MLS/HR; Start 04/22/19 at 21:30 Bisacodyl (Dulcolax) 5 mg DAILY PO ; Start 04/23/19 at 09:00 Polyethylene Glycol (Miralax) 17 gm DAILY PO ; Start 04/23/19 at 09:00 Aspirin (Halfprin) 81 mg DAILY PO ; Start 04/23/19 at 09:00 Ferrous Sulfate (Ferrous Sulfate (Ec)) 325 mg BID PO Last administered on 04/22/19at 23:11; Admin Dose 325 MG; Start 04/22/19 at 21:30 Lisinopril (Zestril) 10 mg DAILY PO ; Start 04/23/19 at 09:00 Metformin HCl (Glucophage) 500 mg WITH BREAKFAST DINNE PO ; Start 04/23/19 at 08:00 Ergocalciferol (Drisdol) 50,000 unit Q7D PO ; Start 04/24/19 at 21:30 Diagnostic Test (Pha) (Accu-Chek) 1 ea Q4H XX ; Start 04/23/19 at 07:00 Insulin Aspart (Novolog Insulin Pen) NOVOLOG *MODERATE* ALGORI... Q4H SC Last administered on 04/23/19at 12:10; Admin Dose 2 UNIT; Start 04/23/19 at 01:00 Coded Allergies: Penicillins (Verified Allergy, Severe, ANAPHYLACTIC SHOCK, 04/22/19) Past Surgical History Past Surgical Hx: other (Several past histories of incision and drainage) Family History Significant Family History: no pertinent family hx Social History Alcohol Use: none Smoking Status: Never smoker Drug Use: none Exam/Review of Systems Vital Signs Vitals Vital Signs Date Temp Pulse Resp B/P (MAP) Pulse Ox O2 O2 Flow FiO2 Time Delivery Rate 04/23/19 97.9 76 18 102/50 98 Room Air 07:26 (67) Intake and Output 04/22/19 04/22/19 04/23/19 1515:00 23:00 07:00 IntakeIntake Total 2020 ml 650 ml OutputOutput Total 400 ml BalanceBalance 2020 ml 250 ml Exam Exam fever Eyes: anicteric, EOM's intact, no pallor Nose: no rhinorrhea Neck: supple, no thyromegaly, no carotid bruits Lungs: clear bilaterally, decreased. CVS: regular rate and rhythm, no murmurs Abdomen: soft, bowel sounds present, no hepatosplenomegally, no masses, no rebound or guarding. Rectal: differed. External genitalia: Numerous inguinal lesions with a purulent discharge, numerous lymphatic nodes enlargement, lymph nodes are mobile. Severe skin discoloration, area of healed wounds. Extremities: no edema, DP pulses are palpable Neuro: alert and oriented x 3 Gait: Able to determine patient is in bed Motor strength: 5+/5+ Sensory exam: normal Deep tendon reflexes: normal, Babisky reflexes are absent bilaterally Skin: Pale, numerous wounds on buttocks area JESSICA MILLS NP Apr 23, 2019 13:03
[2019-04-23] MEDS ORDERED: KETOROLAC 30 MG INJ IV PRN (13:30)
[2019-04-23] MEDS ORDERED: HYDROCODONE/APAP (5/325) TAB PO PRN (13:30)
[2019-04-23] MEDS ORDERED: LIDOCAINE 1% (MPF) 5 ML VIAL SC ONE (13:30)
[2019-04-23] MEDS: MUPIROCIN 2% 22 GM OINT TOP SCH ×2 (17:05→21:19)
[2019-04-23] MEDS: ZINC SULFATE 220 MG CAP PO SCH (17:05)
[2019-04-23] MEDS: VITAMIN B COMPLEX/VIT C CAP PO SCH (17:05)
[2019-04-23] MEDS: DEXTROSE 5%-0.9% NACL 1,000 ML IV SCH ×2 (17:05→22:58)
--- NOTE | 2019-04-23 19:18 | CONS ---
DATE OF ADMISSION: 04/22/2019 DATE OF CONSULTATION: 04/23/2019 TYPE OF CONSULTATION: Infectious disease. REASON FOR CONSULTATION: Antibiotic management. HISTORY OF PRESENT ILLNESS: Nam Lazcano is a 63-year-old male well known to us from numerous admissi ons, who comes in with infected buttock abscess. His problems include: 1. Diabetes mellitus. 2. Hypertension. 3. ALLERGY TO PENICILLIN. He now comes in with large abscess of the right lateral buttock, infection in the groin as well. He says he has been dealing with these for 4 years. PAST MEDICAL HISTORY: Essentially as outlined. FAMILY HISTORY: Noncontributory. SOCIAL HISTORY: He does not smoke, drink or abuse drugs. ALLERGIES: PENICILLIN WITH SEVERE ANAPHYLACTIC SHOCK. NONE TO SULFA OR FOODS. MEDICATIONS: Per chart. REVIEW OF SYSTEMS: Noncontributory. PHYSICAL EXAMINATION: GENERAL: The patient is alert, responsive, in no acute distress. VITAL SIGNS: Stable. He is afebrile. SKIN: Without generalized rash. HEENT: Within normal limits. NECK: Supple. LYMPH NODES: None palpable. CHEST: Decreased breath sounds at the bases. HEART: Without murmur or gallop. ABDOMEN: Soft, nontender without organosplenomegaly or masses. EXTREMITIES: Without cyanosis, clubbing or edema. RECTAL AND GENITAL: Deferred. Evaluation of his back and buttocks show the right buttock to be sebastian rated with skin color changes. There are also cellulitic changes as well to left groin with mild katty thema to the scrotum without obvious necrotizing fasciitis or Stephania's gangrene. NEUROLOGIC: No focal neurological abnormality. ANCILLARY LABORATORY DATA: White count of 13.8, H and H of 8.8 and 29.1, platelet count 240,000. BU N and creatinine is 32/0.91, glucose of 146. He has 92% neutrophils. HOSPITAL COURSE: The patient was started on vancomycin, clindamycin and aztreonam. The source of th e infection is buttock abscess and cellulitis. Blood cultures were done. He was not in septic shock . His buttock wound culture is growing gram-negative rods. The patient was started on vancomycin an d then Levaquin. He had been on clindamycin. He had a PICC line inserted today. CT scan of the pel vis shows extensive skin thickening and enhancement of the peroneal, bilateral gluteal and posteromed ial proximal thigh soft tissues with numerous tiny superficial soft tissue abscesses, extensive soft tissue infection/fasciitis has progressed in extent and severity since the previous examination, scro rex wall edema with small abscess along the lateral aspect of the scrotum is also observed. There is no large organized deep soft tissue abscess to allow for adequate CT-guided drainage. Surgical eval uation and treatment is advised. The patient was seen by Dr. Ramiro Marques who notes extensive groin hidradenitis with multiple sites of purulent discharge, similar findings on both buttocks. The vanna ent has bilateral inguinal and buttock hidradenitis. According to Dr. Marques, this is probably most advanced case of hidradenitis that I have seen. The patient will need to be ultimately evaluated at a tertiary care center for definitive surgery with plastic surgery evaluation of skin flaps and multi ple surgeries. I do not have any surgical recommended to the patient at this time other than continu ance of IV antibiotics. Arguments should be made for transfer when available. The patient just comp leted a course of antibiotics for 12 weeks, starting in 02/2019. He refused post incision and draina ge. Case management to evaluate for tertiary center and plastic surgery. The patient's white count today is 8.4. BUN and creatinine is 20/0.84. The patient was given aztreonam, Levaquin and vancomyc in. I do not concur with this combination. We are going to put him on meropenem and we will see if anything grows with regards to gram-positive before starting him back on vancomycin. Meropenem has g ood anaerobic and gram-positive coverage as well as gram-negative coverage. I will dictate my findin gs to Dr. Feliciano. Dictated By: ANGELA CHAMBERS MD, JD/NTS Conf#: [id number] DID#: [id number] CC: TAMARA MSITH MD; MAURA CADENA MD;*End*
[2019-04-23 20:04] VITALS: BP 102/54; PULSE 77; RESP 16
[2019-04-23] MEDS: MEROPENEM 1 GM/50ML(PMX) 50 ML IVPB SCH (21:47)
[2019-04-24 02:32] VITALS: BP 113/56; PULSE 100; RESP 18
[2019-04-24] MEDS: INSULIN ASPART [NOVOLOG] 3 ML PEN SC SCH ×4 (07:00→20:46)
[2019-04-24 07:49] VITALS: BP 103/50; PULSE 80; RESP 18
[2019-04-24] MEDS: FERROUS SULFATE (EC) 325 MG TAB PO SCH ×2 (08:28→20:41)
[2019-04-24] MEDS: ASPIRIN (EC) 81 MG TAB PO SCH (08:28)
[2019-04-24] MEDS: ZINC SULFATE 220 MG CAP PO SCH (08:28)
[2019-04-24] MEDS: LISINOPRIL 10 MG TAB PO SCH (08:28)
[2019-04-24] MEDS: POLYETHYLENE GLYCOL 17 GM PACKET PO SCH (08:28)
[2019-04-24] MEDS: BISACODYL (EC) 5 MG TAB PO SCH (08:28)
[2019-04-24] MEDS: VITAMIN B COMPLEX/VIT C CAP PO SCH (08:28)
[2019-04-24] MEDS: MUPIROCIN 2% 22 GM OINT TOP SCH ×2 (08:29→20:41)
[2019-04-24] MEDS: MEROPENEM 1 GM/50ML(PMX) 50 ML IVPB SCH ×2 (08:29→20:41)
[2019-04-24] MEDS: metFORMIN 500 MG TAB PO SCH ×2 (08:35→17:11)
[2019-04-24] MEDS: morphine 2 MG INJ IV PRN ×2 (08:47→16:18)
--- NOTE | 2019-04-24 13:56 | CONS ---
Assessment/Plan Assessment/Plan Hospital Course (Demo Recall) No acute changes overnight patient is sleeping looks comfortable no fevers WBC 8.5 platelets 203 neutrophils 83.1 BUN 15 creatinine 0.7 Microbiology: Blood cultures remain negative, MRSA negative, wound culture growing E. coli and gram-negative rods Allergies: Penicillin Antimicrobials: Merrem Physical examination: Well-nourished well-developed elderly man who is in no distress. Head atraumatic normocephalic sclera nonicteric neck is supple chest rise symmetrical breath sounds clear heart: S1-S2 abdomen soft bowel sounds present extremities no cyanosis Assessment: 1. Recurrent hidradenitis suppurativa of bilateral groins and perineum, status post multiple debridement in the past 2. Diabetes 3. Hypertension 4. Coronary artery disease Plan: Clinically stable, continue on current antibiotics, surgical recommendations noted, patient needs to be transferred to tertiary care facility for plastic surgery evaluation, skin flaps and multiple surgeries Consultation Date/Type/Reason Admit Date/Time Apr 22, 2019 at 19:37 Initial Consult Date 04/23/19 Type of Consult id Date/Time of Note DATE: 04/24/19 TIME: 13:56 Exam/Review of Systems Exam Vitals Vital Signs Date Temp Pulse Resp B/P (MAP) Pulse Ox O2 O2 Flow FiO2 Time Delivery Rate 04/24/19 98.3 80 18 103/50 97 Room Air 07:49 (67) Intake and Output 04/23/19 04/23/19 04/24/19 1515:00 23:00 07:00 IntakeIntake Total 480 ml 1030 ml 540 ml OutputOutput Total 470 ml 325 ml 300 ml BalanceBalance 10 ml 705 ml 240 ml Results Result Diagram: 04/24/19 0445 04/24/19 0445 Results 24hrs Laboratory Tests Test 04/23/19 17:09 04/23/19 21:16 04/24/19 04:45 04/24/19 08:32 Bedside Glucose 100 138 128 White Blood Count 8.5 Red Blood Count 2.78 L Hemoglobin 7.2 L Hematocrit 23.8 L Mean Corpuscular 85.6 Volume Mean Corpuscular 25.9 L Hemoglobin Mean Corpuscular 30.3 L Hemoglobin Concent Red Cell 16.8 H Distribution Width Platelet Count 203 Mean Platelet Volume 9.6 Immature 0.500 H Granulocytes % Neutrophils % 83.1 H Lymphocytes % 11.1 L Monocytes % 4.7 Eosinophils % 0.5 Basophils % 0.1 Nucleated Red Blood 0.0 Cells % Immature 0.040 H Granulocytes # Neutrophils # 7.1 Lymphocytes # 0.9 Monocytes # 0.4 Eosinophils # 0.0 Basophils # 0.0 Nucleated Red Blood 0.0 Cells # Sodium Level 134 L Potassium Level 3.7 Chloride Level 105 Carbon Dioxide Level 27 Anion Gap 2 L Blood Urea Nitrogen 15 Creatinine 0.70 Est Glomerular > 60 Filtrat Rate mL/min Glucose Level 111 Calcium Level 7.4 L Test 04/24/19 08:50 04/24/19 12:08 Vancomycin Level < 5.0 L Trough Bedside Glucose 135 Medications Medication Current Medications Acetaminophen (Tylenol Tab) 650 mg Q6H PRN PO MILD PAIN(1-3)OR ELEVATED TEMP; Start 04/22/19 at 21:30 Morphine Sulfate (morphine) 2 mg Q4H PRN IV MODERATE PAIN LEVEL 4-6 Last administered on 04/24/19at 08:47; Admin Dose 2 MG; Start 04/22/19 at 21:30 Morphine Sulfate (morphine) 4 mg Q4H PRN IV SEVERE PAIN LEVEL 7-10; Start 04/22/19 at 21:30 Ondansetron HCl (Zofran Inj) 4 mg Q6H PRN IV NAUSEA AND/OR VOMITING; Start 04/22/19 at 21:30 Dextrose/Sodium Chloride 1,000 ml @ 50 mls/hr Q20H IV Last administered on 04/23/19at 22:58; Admin Dose 50 MLS/HR; Start 04/22/19 at 21:30 Bisacodyl (Dulcolax) 5 mg DAILY PO Last administered on 04/24/19at 08:28; Admin Dose 5 MG; Start 04/23/19 at 09:00 Polyethylene Glycol (Miralax) 17 gm DAILY PO Last administered on 04/24/19 08:28; Admin Dose 17 GM; Start 04/23/19 at 09:00 Aspirin (Halfprin) 81 mg DAILY PO Last administered on 04/24/19 08:28; Admin Dose 81 MG; Start 04/23/19 at 09:00 Ferrous Sulfate (Ferrous Sulfate (Ec)) 325 mg BID PO Last administered on 04/24/19 08:28; Admin Dose 325 MG; Start 04/22/19 at 21:30 Lisinopril (Zestril) 10 mg DAILY PO Last administered on 04/24/19 08:28; Admin Dose 10 MG; Start 04/23/19 at 09:00 Metformin HCl (Glucophage) 500 mg WITH BREAKFAST DINNE PO Last administered on 04/24/19 08:35; Admin Dose 500 MG; Start 04/23/19 at 08:00 Ergocalciferol (Drisdol) 50,000 unit Q7D PO ; Start 04/24/19 at 21:30 Acetaminophen/ Hydrocodone Bitart ([place] (5/325)) 1 tab Q6H PRN PO MODERATE PAIN LEVEL 4-6; Start 04/23/19 at 13:30 Zinc Sulfate (Zinc Sulfate) 220 mg DAILY PO Last administered on 04/24/19 08:28; Admin Dose 220 MG; Start 04/23/19 at 13:30 Mupirocin (Bactroban) 1 applic BID TOP Last administered on 04/24/19 08:29; Admin Dose 1 APPLIC; Start 04/23/19 at 13:30 Vitamin B Complex/ Vitamin C (Berocca) 1 cap DAILY PO Last administered on 04/24/19 08:28; Admin Dose 1 CAP; Start 04/23/19 at 13:30 Insulin Aspart (Novolog Insulin Pen) NOVOLOG *MODERATE* ALGORI... AC MEALS AND BEDTIME SC ; Start 04/23/19 at 17:30 IV Flush (NS 10 ml) 10 ml PRN PRN IV FLUSH LINE; Start 04/23/19 at 17:30 Meropenem/Sodium Chloride 50 ml @ 100 mls/hr Q12 IVPB Last administered on 04/24/19 08:29; Admin Dose 100 MLS/HR; Start 04/23/19 at 21:00 EZIO JACOBO NP Apr 24, 2019 13:56
[2019-04-24 14:15] VITALS: BP 124/66; PULSE 75; RESP 18
--- NOTE | 2019-04-24 14:45 | PN ---
Date/Time of Note Date/Time of Note DATE: 04/24/19 TIME: 14:42 Assessment/Plan VTE Prophylaxis Risk score (from [facility] [place])>0 risk: 8 SCD applied (from [facility] [place]): Yes Pharmacological prophylaxis: NA/contraindicated Pharm contraindication: bleeding Lines/Catheters IV [facility]ter Type (from [facility]): PICC Line Central line still needed: Yes Urinary Cath still in place: No Assessment/Plan Hospital Course 1. Severe hidradenitis suppurativa in inguinal area bilaterally and buttocks area. Patient just completed course of antibiotics for 12 weeks started in February 21, 2019. 2. Severe anemia 3. Sepsis 4. Hyponatremia 5. Hypocalcemia Assessment/Plan -picc line placed -sodium improved 134 -c/w iV fluids -wound care -per case kristian deangelo Plastc surgeon -c/w A/b per ID calcium supplement -iron panel -Hg A1 C Result Diagram: 04/24/195 04/24/19 0445 Results 24hrs Laboratory Tests Test 04/23/19 17:09 04/23/19 21:16 04/24/19 04:45 04/24/19 08:32 Bedside Glucose 100 138 128 White Blood Count 8.5 Red Blood Count 2.78 L Hemoglobin 7.2 L Hematocrit 23.8 L Mean Corpuscular 85.6 Volume Mean Corpuscular 25.9 L Hemoglobin Mean Corpuscular 30.3 L Hemoglobin Concent Red Cell 16.8 H Distribution Width Platelet Count 203 Mean Platelet Volume 9.6 Immature 0.500 H Granulocytes % Neutrophils % 83.1 H Lymphocytes % 11.1 L Monocytes % 4.7 Eosinophils % 0.5 Basophils % 0.1 Nucleated Red Blood 0.0 Cells % Immature 0.040 H Granulocytes # Neutrophils # 7.1 Lymphocytes # 0.9 Monocytes # 0.4 Eosinophils # 0.0 Basophils # 0.0 Nucleated Red Blood 0.0 Cells # Sodium Level 134 L Potassium Level 3.7 Chloride Level 105 Carbon Dioxide Level 27 Anion Gap 2 L Blood Urea Nitrogen 15 Creatinine 0.70 Est Glomerular > 60 Filtrat Rate mL/min Glucose Level 111 Calcium Level 7.4 L Test 04/24/19 08:50 04/24/19 12:08 Vancomycin Level < 5.0 L Trough Bedside Glucose 135 Subjective 24 Hr Interval Summary Free Text/Dictation weak Musculoskeletal: bone/joint pain Exam/Review of Systems Exam Vitals Vital Signs Date Temp Pulse Resp B/P (MAP) Pulse Ox O2 O2 Flow FiO2 Time Delivery Rate 04/24/19 98.2 75 18 124/66 98 Room Air 14:15 (85) Intake and Output 04/23/19 04/23/19 04/24/19 1515:00 23:00 07:00 IntakeIntake Total 480 ml 1030 ml 540 ml OutputOutput Total 470 ml 325 ml 300 ml BalanceBalance 10 ml 705 ml 240 ml Exam No acute distress, no events overnight. Eyes: anicteric, EOM's intact, no pallor Nose: no rhinorrhea Neck: supple, no thyromegaly, no carotid bruits Lungs: clear bilaterally, decreased. CVS: regular rate and rhythm, no murmurs Abdomen: soft, bowel sounds present, no hepatosplenomegally, no masses, no rebound or guarding. Rectal: differed. External genitalia: numerous wounds, discharge wounds foul smelling Extremities: no edema, DP pulses are palpable Neuro: alert and oriented x 3 in bed , frail Results Results 24hrs Laboratory Tests Test 04/23/19 17:09 04/23/19 21:16 04/24/19 04:45 04/24/19 08:32 Bedside Glucose 100 138 128 White Blood Count 8.5 Red Blood Count 2.78 L Hemoglobin 7.2 L Hematocrit 23.8 L Mean Corpuscular 85.6 Volume Mean Corpuscular 25.9 L Hemoglobin Mean Corpuscular 30.3 L Hemoglobin Concent Red Cell 16.8 H Distribution Width Platelet Count 203 Mean Platelet Volume 9.6 Immature 0.500 H Granulocytes % Neutrophils % 83.1 H Lymphocytes % 11.1 L Monocytes % 4.7 Eosinophils % 0.5 Basophils % 0.1 Nucleated Red Blood 0.0 Cells % Immature 0.040 H Granulocytes # Neutrophils # 7.1 Lymphocytes # 0.9 Monocytes # 0.4 Eosinophils # 0.0 Basophils # 0.0 Nucleated Red Blood 0.0 Cells # Sodium Level 134 L Potassium Level 3.7 Chloride Level 105 Carbon Dioxide Level 27 Anion Gap 2 L Blood Urea Nitrogen 15 Creatinine 0.70 Est Glomerular > 60 Filtrat Rate mL/min Glucose Level 111 Calcium Level 7.4 L Test 04/24/19 08:50 04/24/19 12:08 Vancomycin Level < 5.0 L Trough Bedside Glucose 135 Medications Medication Current Medications Acetaminophen (Tylenol Tab) 650 mg Q6H PRN PO MILD PAIN(1-3)OR ELEVATED TEMP; Start 04/22/19 at 21:30 Morphine Sulfate (morphine) 2 mg Q4H PRN IV MODERATE PAIN LEVEL 4-6 Last administered on 04/24/19 08:47; Admin Dose 2 MG; Start 04/22/19 at 21:30 Morphine Sulfate (morphine) 4 mg Q4H PRN IV SEVERE PAIN LEVEL 7-10; Start 04/22 at 21:30 Ondansetron HCl (Zofran Inj) 4 mg Q6H PRN IV NAUSEA AND/OR VOMITING; Start 04/22/19 at 21:30 Dextrose/Sodium Chloride 1,000 ml @ 50 mls/hr Q20H IV Last administered on 04/23/19 22:58; Admin Dose 50 MLS/HR; Start 04/22/19 at 21:30 Bisacodyl (Dulcolax) 5 mg DAILY PO Last administered on 04/24/19 08:28; Admin Dose 5 MG; Start 04/23/19 at 09:00 Polyethylene Glycol (Miralax) 17 gm DAILY PO Last administered on 04/24/19 08:28; Admin Dose 17 GM; Start 04/23/19 at 09:00 Aspirin (Halfprin) 81 mg DAILY PO Last administered on 04/24/19 08:28; Admin Dose 81 MG; Start 04/23/19 at 09:00 Ferrous Sulfate (Ferrous Sulfate (Ec)) 325 mg BID PO Last administered on 04/24/19 08:28; Admin Dose 325 MG; Start 04/22/19 at 21:30 Lisinopril (Zestril) 10 mg DAILY PO Last administered on 04/24/19 08:28; Admin Dose 10 MG; Start 04/23/19 at 09:00 Metformin HCl (Glucophage) 500 mg WITH BREAKFAST DINNE PO Last administered on 04/24/19 08:35; Admin Dose 500 MG; Start 04/23/19 at 08:00 Ergocalciferol (Drisdol) 50,000 unit Q7D PO ; Start 04/24/19 at 21:30 Acetaminophen/ Hydrocodone Bitart ([place] (5/325)) 1 tab Q6H PRN PO MODERATE PAIN LEVEL 4-6; Start 04/23/19 at 13:30 Zinc Sulfate (Zinc Sulfate) 220 mg DAILY PO Last administered on 04/24/19 08:28; Admin Dose 220 MG; Start 04/23/19 at 13:30 Mupirocin (Bactroban) 1 applic BID TOP Last administered on 04/24/19 08:29; Admin Dose 1 APPLIC; Start 04/23/19 at 13:30 Vitamin B Complex/ Vitamin C (Berocca) 1 cap DAILY PO Last administered on 04/24 08:28; Admin Dose 1 CAP; Start 04/23/19 at 13:30 Insulin Aspart (Novolog Insulin Pen) NOVOLOG *MODERATE* ALGORI... AC MEALS AND BEDTIME SC ; Start 04/23/19 at 17:30 IV Flush (NS 10 ml) 10 ml PRN PRN IV FLUSH LINE; Start 04/23/19 at 17:30 Meropenem/Sodium Chloride 50 ml @ 100 mls/hr Q12 IVPB Last administered on 04/24/19 08:29; Admin Dose 100 MLS/HR; Start 04/23/19 at 21:00 JESSICA MILLS NP Apr 24, 2019 14:45
[2019-04-24] MEDS ORDERED: CALCIUM GLUCONATE 10% 1 GM in DEXTROSE 5% 100 ML IVPB ONE (15:30)
[2019-04-24] MEDS: CYANOCOBALAMIN 1000 MCG INJ IM SCH (16:07)
[2019-04-24] MEDS: FOLIC ACID 1 MG TAB PO SCH (16:07)
[2019-04-24] MEDS ORDERED: SOD CHLORIDE 0.9% 1,000 ML IV SCH (18:00)
[2019-04-24 20:25] VITALS: BP 116/59; PULSE 92; RESP 18
[2019-04-24] MEDS: SOD CHLORIDE 0.9% 1,000 ML IV SCH (20:40)
[2019-04-24] MEDS ORDERED: ERGOCALCIFEROL 50,000 UNIT CAP PO SCH (21:30)
[2019-04-25 02:04] VITALS: BP 125/58; PULSE 84; RESP 20
[2019-04-25] MEDS: INSULIN ASPART [NOVOLOG] 3 ML PEN SC SCH ×4 (07:00→21:00)
[2019-04-25 07:59] VITALS: BP 120/60; PULSE 84; RESP 18
[2019-04-25] MEDS: MUPIROCIN 2% 22 GM OINT TOP SCH ×2 (09:00→21:02)
[2019-04-25] MEDS: FERROUS SULFATE (EC) 325 MG TAB PO SCH ×2 (09:13→20:55)
[2019-04-25] MEDS: ASPIRIN (EC) 81 MG TAB PO SCH (09:13)
[2019-04-25] MEDS: MEROPENEM 1 GM/50ML(PMX) 50 ML IVPB SCH ×2 (09:13→20:55)
[2019-04-25] MEDS: POLYETHYLENE GLYCOL 17 GM PACKET PO SCH (09:13)
[2019-04-25] MEDS: FOLIC ACID 1 MG TAB PO SCH (09:14)
[2019-04-25] MEDS: LISINOPRIL 10 MG TAB PO SCH (09:14)
[2019-04-25] MEDS: VITAMIN B COMPLEX/VIT C CAP PO SCH (09:14)
[2019-04-25] MEDS: BISACODYL (EC) 5 MG TAB PO SCH (09:14)
[2019-04-25] MEDS: ZINC SULFATE 220 MG CAP PO SCH (09:14)
[2019-04-25] MEDS: metFORMIN 500 MG TAB PO SCH ×2 (09:19→17:55)
[2019-04-25] MEDS: CYANOCOBALAMIN 1000 MCG INJ IM SCH (09:19)
[2019-04-25] MEDS: morphine 2 MG INJ IV PRN (10:25)
--- NOTE | 2019-04-25 10:38 | CONS ---
Assessment/Plan Assessment/Plan Hospital Course (Demo Recall) No acute changes overnight no fevers Microbiology: Blood cultures remain negative, MRSA negative, wound culture growing E. coli, Proteus, Corynebact grp JK Allergies: Penicillin Antimicrobials: Merrem Physical examination: Well-nourished well-developed elderly man who is in no distress. Head atraumatic normocephalic sclera nonicteric neck is supple chest rise symmetrical breath sounds clear heart: S1-S2 abdomen soft bowel sounds present extremities no cyanosis Assessment: 1. Recurrent hidradenitis suppurativa of bilateral groins and perineum, status post multiple debridement in the past 2. Diabetes 3. Hypertension 4. Coronary artery disease Plan: Clinically stable, add Vanco, continue supportive care, surgical recommendations noted, patient needs to be transferred to tertiary care facility for plastic surgery evaluation, skin flaps and multiple surgeries Consultation Date/Type/Reason Admit Date/Time Apr 22, 2019 at 19:37 Initial Consult Date 04/23/19 Type of Consult id Date/Time of Note DATE: 04/25/19 TIME: 10:37 Exam/Review of Systems Exam Vitals Vital Signs Date Temp Pulse Resp B/P (MAP) Pulse Ox O2 O2 Flow FiO2 Time Delivery Rate 04/25/19 98.6 84 18 120/60 97 Room Air 07:59 (80) Intake and Output 04/24/19 04/24/19 04/25/19 1515:00 23:00 07:00 IntakeIntake Total 340 ml 1350 ml 620 ml OutputOutput Total 225 ml 350 ml 900 ml BalanceBalance 115 ml 1000 ml -280 ml Results Result Diagram: 04/25/19 0527 04/25/19 0527 Results 24hrs Laboratory Tests Test 04/24/19 12:08 04/24/19 17:11 04/24/19 20:45 04/25/19 05:27 Bedside Glucose 135 159 141 White Blood Count 9.4 Red Blood Count 2.86 L Hemoglobin 7.3 L Hematocrit 24.5 L Mean Corpuscular 85.7 Volume Mean Corpuscular 25.5 L Hemoglobin Mean Corpuscular 29.8 L Hemoglobin Concent Red Cell 17.0 H Distribution Width Platelet Count 251 # Mean Platelet Volume 9.2 Immature 0.300 Granulocytes % Neutrophils % 78.8 H Lymphocytes % 14.5 L Monocytes % 5.4 Eosinophils % 0.7 Basophils % 0.3 Nucleated Red Blood 0.0 Cells % Immature 0.030 Granulocytes # Neutrophils # 7.4 Lymphocytes # 1.4 Monocytes # 0.5 Eosinophils # 0.1 Basophils # 0.0 Nucleated Red Blood 0.0 Cells # Sodium Level 134 L Potassium Level 3.5 Chloride Level 105 Carbon Dioxide Level 28 Anion Gap 1 L Blood Urea Nitrogen 11 Creatinine 0.65 Est Glomerular > 60 Filtrat Rate mL/min Glucose Level 111 Hemoglobin A1c 5.8 Calcium Level 7.7 L Iron Level < 10 L Total Iron Binding 152 L Capacity Percent Iron Saturation Test 04/25/19 08:55 Bedside Glucose 115 Medications Medication Current Medications Acetaminophen (Tylenol Tab) 650 mg Q6H PRN PO MILD PAIN(1-3)OR ELEVATED TEMP; Start 04/22/19 at 21:30 Morphine Sulfate (morphine) 2 mg Q4H PRN IV MODERATE PAIN LEVEL 4-6 Last administered on 04/25/19at 10:25; Admin Dose 2 MG; Start 04/22/19 at 21:30 Morphine Sulfate (morphine) 4 mg Q4H PRN IV SEVERE PAIN LEVEL 7-10; Start 04/22/19 at 21:30 Ondansetron HCl (Zofran Inj) 4 mg Q6H PRN IV NAUSEA AND/OR VOMITING; Start 04/22/19 at 21:30 Bisacodyl (Dulcolax) 5 mg DAILY PO Last administered on 04/25/19at 09:14; Admin Dose 5 MG; Start 04/23/19 at 09:00 Polyethylene Glycol (Miralax) 17 gm DAILY PO Last administered on 04/25/19 09:13; Admin Dose 17 GM; Start 04/23/19 at 09:00 Aspirin (Halfprin) 81 mg DAILY PO Last administered on 04/25/19 09:13; Admin Dose 81 MG; Start 04/23/19 at 09:00 Ferrous Sulfate (Ferrous Sulfate (Ec)) 325 mg BID PO Last administered on 09:13; Admin Dose 325 MG; Start 04/22/19 at 21:30 Lisinopril (Zestril) 10 mg DAILY PO Last administered on 04/25/19 09:14; Admin Dose 10 MG; Start 04/23/19 at 09:00 Metformin HCl (Glucophage) 500 mg WITH BREAKFAST DINNE PO Last administered on 04/25/19 09:19; Admin Dose 500 MG; Start 04/23/19 at 08:00 Ergocalciferol (Drisdol) 50,000 unit Q7D PO Last administered on 04/24/19 20:41; Admin Dose 50,000 UNIT; Start 04/24/19 at 21:30 Acetaminophen/ Hydrocodone Bitart ([place] (5/325)) 1 tab Q6H PRN PO MODERATE PAIN LEVEL 4-6; Start 04/23/19 at 13:30 Zinc Sulfate (Zinc Sulfate) 220 mg DAILY PO Last administered on 04/25/19 09:14; Admin Dose 220 MG; Start 04/23/19 at 13:30 Mupirocin (Bactroban) 1 applic BID TOP Last administered on 04/24/19 20:41; Admin Dose 1 APPLIC; Start 04/23/19 at 13:30 Vitamin B Complex/ Vitamin C (Berocca) 1 cap DAILY PO Last administered on 04/25/19 09:14; Admin Dose 1 CAP; Start 04/23/19 at 13:30 Insulin Aspart (Novolog Insulin Pen) NOVOLOG *MODERATE* ALGORI... AC MEALS AND BEDTIME SC Last administered on 04/24/19 17:13; Admin Dose 2 UNIT; Start 04/23 at 17:30 IV Flush (NS 10 ml) 10 ml PRN PRN IV FLUSH LINE; Start 04/23/19 at 17:30 Meropenem/Sodium Chloride 50 ml @ 100 mls/hr Q12 IVPB Last administered on 04/25/19 09:13; Admin Dose 100 MLS/HR; Start 04/23/19 at 21:00 Ferric Sodium Gluconate Complex 125 mg/Sodium Chloride 110 ml @ 110 mls/hr DAILY@1300 IVPB ; Start 04/25/19 at 13:00; Stop 04/29/19 at 13:59 Cyanocobalamin (Vitamin B12 Inj) 1,000 mcg DAILY IM Last administered on 04/25/19 09:19; Admin Dose 1,000 MCG; Start 04/24/19 at 15:30 Folic Acid (Folic Acid) 1 mg DAILY PO Last administered on 04/25/19 09:14; Admin Dose 1 MG; Start 04/24/19 at 15:00 Sodium Chloride 1,000 ml @ 40 mls/hr Q24H IV Last administered on 04/24/19at 20:40; Admin Dose 40 MLS/HR; Start 04/24/19 at 21:00 EZIO JACOBO NP Apr 25, 2019 10:38
--- NOTE | 2019-04-25 10:50 | PN ---
Date/Time of Note Date/Time of Note DATE: 04/25/19 TIME: 10:47 Assessment/Plan VTE Prophylaxis Risk score (from Ns)>0 risk: 8 SCD applied (from Ns): Yes Pharmacological prophylaxis: NA/contraindicated Pharm contraindication: bleeding Lines/Catheters IV Catheter Type (from Nrsg): PICC Line Central line still needed: Yes Urinary Cath still in place: No Assessment/Plan Hospital Course 1. Severe hidradenitis suppurativa in inguinal area bilaterally and buttocks area. Patient just completed course of antibiotics for 12 weeks started in February 21, 2019. 2. Severe anemia 3. Sepsis 4. Hyponatremia 5. Hypocalcemia Assessment/Plan -blood cul. are neg -add Totadol -Per ID Meropenem add vanco -PICC line in -c/w wound care -transfer to tertiary center are started per case management -pain control -pt has fever -add Calcium supp. supplement Result Diagram: 04/25/19 0527 04/25/19 0527 Results 24hrs Laboratory Tests Test 04/24/19 12:08 04/24/19 17:11 04/24/19 20:45 04/25/19 05:27 Bedside Glucose 135 159 141 White Blood Count 9.4 Red Blood Count 2.86 L Hemoglobin 7.3 L Hematocrit 24.5 L Mean Corpuscular 85.7 Volume Mean Corpuscular 25.5 L Hemoglobin Mean Corpuscular 29.8 L Hemoglobin Concent Red Cell 17.0 H Distribution Width Platelet Count 251 # Mean Platelet Volume 9.2 Immature 0.300 Granulocytes % Neutrophils % 78.8 H Lymphocytes % 14.5 L Monocytes % 5.4 Eosinophils % 0.7 Basophils % 0.3 Nucleated Red Blood 0.0 Cells % Immature 0.030 Granulocytes # Neutrophils # 7.4 Lymphocytes # 1.4 Monocytes # 0.5 Eosinophils # 0.1 Basophils # 0.0 Nucleated Red Blood 0.0 Cells # Sodium Level 134 L Potassium Level 3.5 Chloride Level 105 Carbon Dioxide Level 28 Anion Gap 1 L Blood Urea Nitrogen 11 Creatinine 0.65 Est Glomerular > 60 Filtrat Rate mL/min Glucose Level 111 Hemoglobin A1c 5.8 Calcium Level 7.7 L Iron Level < 10 L Total Iron Binding 152 L Capacity Percent Iron Saturation Test 04/25/19 08:55 Bedside Glucose 115 Subjective 24 Hr Interval Summary Musculoskeletal: bone/joint pain, restricted range of motion, swelling Exam/Review of Systems Exam Vitals Vital Signs Date Temp Pulse Resp B/P (MAP) Pulse Ox O2 O2 Flow FiO2 Time Delivery Rate 04/25/19 98.6 84 18 120/60 97 Room Air 07:59 (80) Intake and Output 04/24/19 04/24/19 04/25/19 1515:00 23:00 07:00 IntakeIntake Total 340 ml 1350 ml 620 ml OutputOutput Total 225 ml 350 ml 900 ml BalanceBalance 115 ml 1000 ml -280 ml Constitutional: alert, oriented Psych: no complaints Head: normocephalic Eyes: nl conjunctiva, EOMI, nl lids, nl sclera ENMT: nl external ears & nose, nl lips & teeth Neck: supple Respiratory: clear to auscultation, normal air movement Cardiovascular: regular rate and rhythm Gastrointestinal: soft Genitourinary - Male: CVA tenderness; No nl penis, No nl scrotum, No discharge, No other Skin: other (numerous wouds buttiocks) Results Results 24hrs Laboratory Tests Test 04/24/19 12:08 04/24/19 17:11 04/24/19 20:45 04/25/19 05:27 Bedside Glucose 135 159 141 White Blood Count 9.4 Red Blood Count 2.86 L Hemoglobin 7.3 L Hematocrit 24.5 L Mean Corpuscular 85.7 Volume Mean Corpuscular 25.5 L Hemoglobin Mean Corpuscular 29.8 L Hemoglobin Concent Red Cell 17.0 H Distribution Width Platelet Count 251 # Mean Platelet Volume 9.2 Immature 0.300 Granulocytes % Neutrophils % 78.8 H Lymphocytes % 14.5 L Monocytes % 5.4 Eosinophils % 0.7 Basophils % 0.3 Nucleated Red Blood 0.0 Cells % Immature 0.030 Granulocytes # Neutrophils # 7.4 Lymphocytes # 1.4 Monocytes # 0.5 Eosinophils # 0.1 Basophils # 0.0 Nucleated Red Blood 0.0 Cells # Sodium Level 134 L Potassium Level 3.5 Chloride Level 105 Carbon Dioxide Level 28 Anion Gap 1 L Blood Urea Nitrogen 11 Creatinine 0.65 Est Glomerular > 60 Filtrat Rate mL/min Glucose Level 111 Hemoglobin A1c 5.8 Calcium Level 7.7 L Iron Level < 10 L Total Iron Binding 152 L Capacity Percent Iron Saturation Test 04/25/19 08:55 Bedside Glucose 115 Medications Medication Current Medications Acetaminophen (Tylenol Tab) 650 mg Q6H PRN PO MILD PAIN(1-3)OR ELEVATED TEMP; Start 04/22/19 at 21:30 Morphine Sulfate (morphine) 2 mg Q4H PRN IV MODERATE PAIN LEVEL 4-6 Last administered on 04/25/19 10:25; Admin Dose 2 MG; Start 04/22/19 at 21:30 Morphine Sulfate (morphine) 4 mg Q4H PRN IV SEVERE PAIN LEVEL 7-10; Start 04/22/19 at 21:30 Ondansetron HCl (Zofran Inj) 4 mg Q6H PRN IV NAUSEA AND/OR VOMITING; Start 04/22/19 at 21:30 Bisacodyl (Dulcolax) 5 mg DAILY PO Last administered on 04/25/19 09:14; Admin Dose 5 MG; Start 04/23/19 at 09:00 Polyethylene Glycol (Miralax) 17 gm DAILY PO Last administered on 04/25/19 09:13; Admin Dose 17 GM; Start 04/23/19 at 09:00 Aspirin (Halfprin) 81 mg DAILY PO Last administered on 04/25/19 09:13; Admin Dose 81 MG; Start 04/23/19 at 09:00 Ferrous Sulfate (Ferrous Sulfate (Ec)) 325 mg BID PO Last administered on 04/25/19 09:13; Admin Dose 325 MG; Start 04/22/19 at 21:30 Lisinopril (Zestril) 10 mg DAILY PO Last administered on 04/25/19 09:14; Admin Dose 10 MG; Start 04/23/19 at 09:00 Metformin HCl (Glucophage) 500 mg WITH BREAKFAST DINNE PO Last administered on 04/25/19 09:19; Admin Dose 500 MG; Start 04/23/19 at 08:00 Ergocalciferol (Drisdol) 50,000 unit Q7D PO Last administered on 04/24/19 20:41; Admin Dose 50,000 UNIT; Start 04/24/19 at 21:30 Acetaminophen/ Hydrocodone Bitart ([place] (5/325)) 1 tab Q6H PRN PO MODERATE PAIN LEVEL 4-6; Start 04/23/19 at 13:30 Zinc Sulfate (Zinc Sulfate) 220 mg DAILY PO Last administered on 04/25/19 09:14; Admin Dose 220 MG; Start 04/23/19 at 13:30 Mupirocin (Bactroban) 1 applic BID TOP Last administered on 04/24/19 20:41; Admin Dose 1 APPLIC; Start 04/23/19 at 13:30 Vitamin B Complex/ Vitamin C (Berocca) 1 cap DAILY PO Last administered on 04/25/19 09:14; Admin Dose 1 CAP; Start 04/23/19 at 13:30 Insulin Aspart (Novolog Insulin Pen) NOVOLOG *MODERATE* ALGORI... AC MEALS AND BEDTIME SC Last administered on 04/24/19 17:13; Admin Dose 2 UNIT; Start 04/23/19 at 17:30 IV Flush (NS 10 ml) 10 ml PRN PRN IV FLUSH LINE; Start 04/23/19 at 17:30 Meropenem/Sodium Chloride 50 ml @ 100 mls/hr Q12 IVPB Last administered on 04/25/19 09:13; Admin Dose 100 MLS/HR; Start 04/23/19 at 21:00 Ferric Sodium Gluconate Complex 125 mg/Sodium Chloride 110 ml @ 110 mls/hr DAILY@1300 IVPB ; Start 04/25/19 at 13:00; Stop 04/29/19 at 13:59 Cyanocobalamin (Vitamin B12 Inj) 1,000 mcg DAILY IM Last administered on 04/25/19 09:19; Admin Dose 1,000 MCG; Start 04/24/19 at 15:30 Folic Acid (Folic Acid) 1 mg DAILY PO Last administered on 04/25/19 09:14; Admin Dose 1 MG; Start 04/24/19 at 15:00 Sodium Chloride 1,000 ml @ 40 mls/hr Q24H IV Last administered on 04/24/19 20:40; Admin Dose 40 MLS/HR; Start 04/24/19 at 21:00 Vancomycin HCl (Vanco Iv Per Pharmacy) VANCOMYCIN PER PHARMACY PER PROTOCOL XX ; Start 04/25/19 at 11:00; Status JESSICA SARKAR NP Apr 25, 2019 10:50
[2019-04-25] MEDS ORDERED: VANCOMYCIN IV PER PHARMACY XX SCH (11:00)
[2019-04-25] MEDS ORDERED: VANCOMYCIN 1.25 GM/NS 250 ML 250 ML IVPB ONE (12:00)
[2019-04-25] MEDS: CALCIUM CARBONATE 1.25 GM TAB PO SCH ×2 (12:23→21:01)
[2019-04-25] MEDS: KETOROLAC 15 MG INJ IV SCH ×3 (12:23→23:09)
[2019-04-25] MEDS: SOD FERRIC GLUC COMPLX 125 MG in SOD CHLORIDE 0.9% 100 ML IVPB SCH (12:30)
[2019-04-25 14:00] VITALS: BP 133/60; PULSE 79; RESP 16
[2019-04-25 20:11] VITALS: BP 119/58; PULSE 70; RESP 18
[2019-04-25] MEDS: SOD CHLORIDE 0.9% 1,000 ML IV SCH (20:55)
[2019-04-25] MEDS: VANCOMYCIN 750 MG (PMX) 250 ML IVPB SCH (23:09)
[2019-04-26 01:59] VITALS: BP 136/63; PULSE 80; RESP 16
[2019-04-26] MEDS: KETOROLAC 15 MG INJ IV SCH ×4 (05:28→23:55)
[2019-04-26 07:33] VITALS: BP 107/59; PULSE 85; RESP 18
[2019-04-26] MEDS: MEROPENEM 1 GM/50ML(PMX) 50 ML IVPB SCH ×2 (08:08→21:35)
[2019-04-26] MEDS: FERROUS SULFATE (EC) 325 MG TAB PO SCH ×2 (08:10→21:34)
[2019-04-26] MEDS: metFORMIN 500 MG TAB PO SCH ×2 (08:11→18:02)
[2019-04-26] MEDS: ZINC SULFATE 220 MG CAP PO SCH (08:11)
[2019-04-26] MEDS: BISACODYL (EC) 5 MG TAB PO SCH (08:11)
[2019-04-26] MEDS: MUPIROCIN 2% 22 GM OINT TOP SCH ×2 (08:12→21:35)
[2019-04-26] MEDS: VITAMIN B COMPLEX/VIT C CAP PO SCH (08:12)
[2019-04-26] MEDS: CALCIUM CARBONATE 1.25 GM TAB PO SCH ×2 (08:12→21:34)
[2019-04-26] MEDS: FOLIC ACID 1 MG TAB PO SCH (08:12)
[2019-04-26] MEDS: ASPIRIN (EC) 81 MG TAB PO SCH (08:12)
[2019-04-26] MEDS: LISINOPRIL 10 MG TAB PO SCH (08:12)
[2019-04-26] MEDS: INSULIN ASPART [NOVOLOG] 3 ML PEN SC SCH ×4 (08:15→21:39)
[2019-04-26] MEDS: CYANOCOBALAMIN 1000 MCG INJ IM SCH (08:16)
[2019-04-26] MEDS: POLYETHYLENE GLYCOL 17 GM PACKET PO SCH (08:16)
[2019-04-26] MEDS: VANCOMYCIN 750 MG (PMX) 250 ML IVPB SCH ×2 (10:37→22:19)
--- NOTE | 2019-04-26 12:08 | CONS ---
Assessment/Plan Assessment/Plan Hospital Course (Demo Recall) No acute changes overnight Microbiology: Blood cultures remain negative, MRSA negative, wound culture growing E. coli, Proteus, Corynebact grp JK Allergies: Penicillin Antimicrobials: Merrem Vanco Physical examination: Well-nourished well-developed elderly man who is in no distress. Head atraumatic normocephalic sclera nonicteric neck is supple chest rise symmetrical breath sounds clear heart: S1-S2 abdomen soft bowel sounds present extremities no cyanosis Assessment: 1. Recurrent hidradenitis suppurativa of bilateral groins and perineum, status post multiple debridement in the past 2. Diabetes 3. Hypertension 4. Coronary artery disease Plan: Clinically unchanged, anticipate dc on current abx with PICC, pt needs to f/u with tertiary [facility] facility for plastic surgery evaluation, skin flaps and multiple surgeries Consultation Date/Type/Reason Admit Date/Time Apr 22, 2019 at 19:37 Initial Consult Date 04/23/19 Type of Consult id Date/Time of Note DATE: 04/26/19 TIME: 12:07 Exam/Review of Systems Exam Vitals Vital Signs Date Temp Pulse Resp B/P (MAP) Pulse Ox O2 O2 Flow FiO2 Time Delivery Rate 04/26/19 98.1 85 18 107/59 98 07:33 (75) 04/26/19 Room Air 01:59 Intake and Output 04/25/19 04/25/19 04/26/19 1515:00 23:00 07:00 IntakeIntake Total 520 ml 1220 ml 550 ml OutputOutput Total 150 ml 400 ml BalanceBalance 370 ml 1220 ml 150 ml Results Result Diagram: 04/26/19 0520 04/26/19 0520 Results 24hrs Laboratory Tests Test 04/25/19 12:21 04/25/19 17:53 04/25/19 20:56 04/26/19 05:20 Bedside Glucose 145 185 119 White Blood Count 8.0 Red Blood Count 2.71 L Hemoglobin 7.1 L Hematocrit 23.3 L Mean Corpuscular 86.0 Volume Mean Corpuscular 26.2 L Hemoglobin Mean Corpuscular 30.5 L Hemoglobin Concen t Red Cell 17.1 H Distribution Width Platelet Count 240 Mean Platelet 8.9 Volume Immature 0.600 H Granulocytes % Neutrophils % 78.7 H Lymphocytes % 13.7 L Monocytes % 5.7 Eosinophils % 1.0 Basophils % 0.3 Nucleated Red 0.0 Blood Cells % Immature 0.050 H Granulocytes # Neutrophils # 6.3 Lymphocytes # 1.1 Monocytes # 0.5 Eosinophils # 0.1 Basophils # 0.0 Nucleated Red 0.0 Blood Cells # Sodium Level 137 Potassium Level 4.0 Chloride Level 106 Carbon Dioxide 27 Level Anion Gap 4 L Blood Urea 17 Nitrogen Creatinine 0.65 Est Glomerular > 60 Filtrat Rate mL/min Glucose Level 110 Calcium Level 8.0 L Test 04/26/19 06:01 04/26/19 08:08 Lab Scanned BLOOD TRANSFUSIO Report N Bedside Glucose 153 Medications Medication Current Medications Acetaminophen (Tylenol Tab) 650 mg Q6H PRN PO MILD PAIN(1-3)OR ELEVATED TEMP; Start 04/22/19 at 21:30 Morphine Sulfate (morphine) 2 mg Q4H PRN IV MODERATE PAIN LEVEL 4-6 Last administered on 04/25/19 10:25; Admin Dose 2 MG; Start 04/22/19 at 21:30 Morphine Sulfate (morphine) 4 mg Q4H PRN IV SEVERE PAIN LEVEL 7-10; Start 04/22/19 at 21:30 Ondansetron HCl (Zofran Inj) 4 mg Q6H PRN IV NAUSEA AND/OR VOMITING; Start 04/22/19 at 21:30 Bisacodyl (Dulcolax) 5 mg DAILY PO Last administered on 04/26/19at 08:11; Admin Dose 5 MG; Start 04/23/19 at 09:00 Polyethylene Glycol (Miralax) 17 gm DAILY PO Last administered on 04/26/19 08:16; Admin Dose 17 GM; Start 04/23/19 at 09:00 Aspirin (Halfprin) 81 mg DAILY PO Last administered on 04/26/19 08:12; Admin D ose 81 MG; Start 04/23/19 at 09:00 Ferrous Sulfate (Ferrous Sulfate (Ec)) 325 mg BID PO Last administered on 04/26/19 08:10; Admin Dose 325 MG; Start 04/22/19 at 21:30 Lisinopril (Zestril) 10 mg DAILY PO Last administered on 04/26/19 08:12; Admin Dose 10 MG; Start 04/23/19 at 09:00 Metformin HCl (Glucophage) 500 mg WITH BREAKFAST DINNE PO Last administered on 04/26/19 08:11; Admin Dose 500 MG; Start 04/23/19 at 08:00 Ergocalciferol (Drisdol) 50,000 unit Q7D PO Last administered on 04/24/19 20:41; Admin Dose 50,000 UNIT; Start 04/24/19 at 21:30 Acetaminophen/ Hydrocodone Bitart ([place] (5/325)) 1 tab Q6H PRN PO MODERATE PAIN LEVEL 4-6; Start 04/23/19 at 13:30 Zinc Sulfate (Zinc Sulfate) 220 mg DAILY PO Last administered on 04/26/19 08:11; Admin Dose 220 MG; Start 04/23/19 at 13:30 Mupirocin (Bactroban) 1 applic BID TOP Last administered on 04/26/19 08:12; Admin Dose 1 APPLIC; Start 04/23/19 at 13:30 Vitamin B Complex/ Vitamin C (Berocca) 1 cap DAILY PO Last administered on 04/26/19 08:12; Admin Dose 1 CAP; Start 04/23/19 at 13:30 Insulin Aspart (Novolog Insulin Pen) NOVOLOG *MODERATE* ALGORI... AC MEALS AND BEDTIME SC Last administered on 04/26/19 08:15; Admin Dose 2 UNIT; Start 04/23/19 at 17:30 IV Flush (NS 10 ml) 10 ml PRN PRN IV FLUSH LINE; Start 04/23/19 at 17:30 Meropenem/Sodium Chloride 50 ml @ 100 mls/hr Q12 IVPB Last administered on 04/26/19 08:08; Admin Dose 100 MLS/HR; Start 04/23/19 at 21:00 Ferric Sodium Gluconate Complex 125 mg/Sodium Chloride 110 ml @ 110 mls/hr DAILY@1300 IVPB Last administered on 04/25/19 12:30; Admin Dose 110 MLS/HR; Start 04/25/19 at 13:00; Stop 04/29/19 at 13:59 Cyanocobalamin (Vitamin B12 Inj) 1,000 mcg DAILY IM Last administered on 04/26/19 08:16; Admin Dose 1,000 MCG; Start 04/24/19 at 15:30 Folic Acid (Folic Acid) 1 mg DAILY PO Last administered on 04/26/19 08:12; Admin Dose 1 MG; Start 04/24/19 at 15:00 Sodium Chloride 1,000 ml @ 40 mls/hr Q24H IV Last administered on 04/25/19 20:55; Admin Dose 40 MLS/HR; Start 04/24/19 at 21:00 Vancomycin HCl (Vanco Iv Per Pharmacy) VANCOMYCIN PER PHARMACY PER PROTOCOL XX ; Start 04/25/19 at 11:00 Calcium Carbonate (Oyster Shell Calcium) 1.25 gm BID PO Last administered on 04/26/19 08:12; Admin Dose 1.25 GM; Start 04/25/19 at 11:00 Vancomycin/Sodium Chloride 250 ml @ 125 mls/hr Q12H IVPB Last administered on 04/26/19 10:37; Admin Dose 125 MLS/HR; Start 04/25/19 at 23:00 Ketorolac Tromethamine (Toradol) 15 mg Q6 IV Last administered on 04/26/19 05:28; Admin Dose 15 MG; Start 04/25/19 at 12:00; Stop 04/28/19 at 11:59 EZIO JACOBO NP Apr 26, 2019 12:08
[2019-04-26] MEDS: SOD FERRIC GLUC COMPLX 125 MG in SOD CHLORIDE 0.9% 100 ML IVPB SCH (13:24)
[2019-04-26 14:31] VITALS: BP 107/59; PULSE 85; RESP 18
--- NOTE | 2019-04-26 14:32 | PN ---
Date/Time of Note Date/Time of Note DATE: 04/26/19 TIME: 14:29 Assessment/Plan VTE Prophylaxis Risk score (from Ns)>0 risk: 5 SCD applied (from Ns): Yes Pharmacological prophylaxis: NA/contraindicated Pharm contraindication: low risk/ambulating Lines/Catheters [facility]from [facility] P[facility] Line Central line still needed: Yes Urinary Cath still in place: No Assessment/Plan Assessment/Plan Hospital Course 1. Severe hidradenitis suppurativa in inguinal area bilaterally and buttocks area. Patient just completed course of antibiotics for 12 weeks started in February 21, 2019. cx+ E. coli's/Corynebacterium Proteus 2. Severe anemia iron deficiency/anemia of chronic disease 3. Sepsis 4. Hyponatremia 5. Hypocalcemia Assessment/Plan -Per ID Meropenem / vanco, and is refusing to go to [facility] level will arrange for IV antibiotics at home per ID -PICC line in -c/w wound care -transfer to tertiary center are started per case management however patient refused --Wound care -1 unit PRBC Result Diagram: 04/26/19 0520 04/26/19 0520 Results 24hrs Laboratory Tests Test 04/25/19 17:53 04/25/19 20:56 04/26/19 05:20 04/26/19 06:01 Bedside Glucose 185 119 White Blood Count 8.0 Red Blood Count 2.71 L Hemoglobin 7.1 L Hematocrit 23.3 L Mean Corpuscular 86.0 Volume Mean Corpuscular 26.2 L Hemoglobin Mean Corpuscular 30.5 L Hemoglobin Concen t Red Cell 17.1 H Distribution Width Platelet Count 240 Mean Platelet 8.9 Volume Immature 0.600 H Granulocytes % Neutrophils % 78.7 H Lymphocytes % 13.7 L Monocytes % 5.7 Eosinophils % 1.0 Basophils % 0.3 Nucleated Red 0.0 Blood Cells % Immature 0.050 H Granulocytes # Neutrophils # 6.3 Lymphocytes # 1.1 Monocytes # 0.5 Eosinophils # 0.1 Basophils # 0.0 Nucleated Red 0.0 Blood Cells # Sodium Level 137 Potassium Level 4.0 Chloride Level 106 Carbon Dioxide 27 Level Anion Gap 4 L Blood Urea 17 Nitrogen Creatinine 0.65 Est Glomerular > 60 Filtrat Rate mL/min Glucose Level 110 Calcium Level 8.0 L Lab Scanned BLOOD TRANSFUSIO Report N Test 04/26/19 08:08 04/26/19 12:24 Bedside Glucose 153 114 Subjective 24 Hr Interval Summary Free Text/Dictation he has refused to getting transferred to tertiary level. Exam/Review of Systems Exam Vitals Vital Signs Date Temp Pulse Resp B/P (MAP) Pulse Ox O2 O2 Flow FiO2 Time Delivery Rate 04/26/19 98.1 85 18 107/59 98 07:33 (75) 04/26/19 Room Air 01:59 Intake and Output 04/25/19 04/25/19 04/26/19 1515:00 23:00 07:00 IntakeIntake Total 520 ml 1220 ml 550 ml OutputOutput Total 150 ml 400 ml BalanceBalance 370 ml 1220 ml 150 ml Exam Constitutional: alert, oriented Psych: no complaints Head: normocephalic Eyes: nl conjunctiva, EOMI, nl lids, nl sclera ENMT: nl external ears & nose, nl lips & teeth Neck: supple Respiratory: clear to auscultation, normal air movement Cardiovascular: regular rate and rhythm Gastrointestinal: soft Skin: other (numerous wouds buttiocks) Results Results 24hrs Laboratory Tests Test 04/25/19 17:53 04/25/19 20:56 04/26/19 05:20 04/26/19 06:01 Bedside Glucose 185 119 White Blood Count 8.0 Red Blood Count 2.71 L Hemoglobin 7.1 L Hematocrit 23.3 L Mean Corpuscular 86.0 Volume Mean Corpuscular 26.2 L Hemoglobin Mean Corpuscular 30.5 L Hemoglobin Concen t Red Cell 17.1 H Distribution Width Platelet Count 240 Mean Platelet 8.9 Volume Immature 0.600 H Granulocytes % Neutrophils % 78.7 H Lymphocytes % 13.7 L Monocytes % 5.7 Eosinophils % 1.0 Basophils % 0.3 Nucleated Red 0.0 Blood Cells % Immature 0.050 H Granulocytes # Neutrophils # 6.3 Lymphocytes # 1.1 Monocytes # 0.5 Eosinophils # 0.1 Basophils # 0.0 Nucleated Red 0.0 Blood Cells # Sodium Level 137 Potassium Level 4.0 Chloride Level 106 Carbon Dioxide 27 Level Anion Gap 4 L Blood Urea 17 Nitrogen Creatinine 0.65 Est Glomerular > 60 Filtrat Rate mL/min Glucose Level 110 Calcium Level 8.0 L Lab Scanned BLOOD TRANSFUSIO Report N Test 04/26/19 08:08 04/26/19 12:24 Bedside Glucose 153 114 Medications Medication Current Medications Acetaminophen (Tylenol Tab) 650 mg Q6H PRN PO MILD PAIN(1-3)OR ELEVATED TEMP; Start 04/22/19 at 21:30 Morphine Sulfate (morphine) 2 mg Q4H PRN IV MODERATE PAIN LEVEL 4-6 Last administered on 04/25/19 10:25; Admin Dose 2 MG; Start 04/22/19 at 21:30 Morphine Sulfate (morphine) 4 mg Q4H PRN IV SEVERE PAIN LEVEL 7-10; Start 04/22/19 at 21:30 Ondansetron HCl (Zofran Inj) 4 mg Q6H PRN IV NAUSEA AND/OR VOMITING; Start 04/22/19 at 21:30 Bisacodyl (Dulcolax) 5 mg DAILY PO Last administered on 04/26/19 08:11; Admin Dose 5 MG; Start 04/23/19 at 09:00 Polyethylene Glycol (Miralax) 17 gm DAILY PO Last administered on 04/26/19 08:16; Admin Dose 17 GM; Start 04/23/19 at 09:00 Aspirin (Halfprin) 81 mg DAILY PO Last administered on 04/26/19 08:12; Admin Dose 81 MG; Start 04/23/19 at 09:00 Ferrous Sulfate (Ferrous Sulfate (Ec)) 325 mg BID PO Last administered on 04/26/19 08:10; Admin Dose 325 MG; Start 04/22/19 at 21:30 Lisinopril (Zestril) 10 mg DAILY PO Last administered on 04/26/19 08:12; Admin Dose 10 MG; Start 04/23/19 at 09:00 Metformin HCl (Glucophage) 500 mg WITH BREAKFAST DINNE PO Last administered on 04/26/19 08:11; Admin Dose 500 MG; Start 04/23/19 at 08:00 Ergocalciferol (Drisdol) 50,000 unit Q7D PO Last administered on 04/24/19 20: 41; Admin Dose 50,000 UNIT; Start 04/24/19 at 21:30 Acetaminophen/ Hydrocodone Bitart ([place] (5/325)) 1 tab Q6H PRN PO MODERATE PAIN LEVEL 4-6; Start 04/23/19 at 13:30 Zinc Sulfate (Zinc Sulfate) 220 mg DAILY PO Last administered on 04/26/19 08:11; Admin Dose 220 MG; Start 04/23/19 at 13:30 Mupirocin (Bactroban) 1 applic BID TOP Last administered on 04/26/19 08:12; Admin Dose 1 APPLIC; Start 04/23/19 at 13:30 Vitamin B Complex/ Vitamin C (Berocca) 1 cap DAILY PO Last administered on 04/26/19 08:12; Admin Dose 1 CAP; Start 04/23/19 at 13:30 Insulin Aspart (Novolog Insulin Pen) NOVOLOG *MODERATE* ALGORI... AC MEALS AND BEDTIME SC Last administered on 04/26/19 08:15; Admin Dose 2 UNIT; Start 04/23/19 at 17:30 IV Flush (NS 10 ml) 10 ml PRN PRN IV FLUSH LINE; Start 04/23/19 at 17:30 Meropenem/Sodium Chloride 50 ml @ 100 mls/hr Q12 IVPB Last administered on 04/26/19 08:08; Admin Dose 100 MLS/HR; Start 04/23/19 at 21:00 Ferric Sodium Gluconate Complex 125 mg/Sodium Chloride 110 ml @ 110 mls/hr DAILY@1300 IVPB Last administered on 04/26/19 13:24; Admin Dose 110 MLS/HR; Start 04/25/19 at 13:00; Stop 04/29/19 at 13:59 Cyanocobalamin (Vitamin B12 Inj) 1,000 mcg DAILY IM Last administered on 04/26/19 08:16; Admin Dose 1,000 MCG; Start 04/24/19 at 15:30 Folic Acid (Folic Acid) 1 mg DAILY PO Last administered on 04/26/19 08:12; Admin Dose 1 MG; Start 04/24/19 at 15:00 Vancomycin HCl (Vanco Iv Per Pharmacy) VANCOMYCIN PER PHARMACY PER PROTOCOL XX ; Start 04/25/19 at 11:00 Calcium Carbonate ([place]yster [place] Calcium) 1.25 gm BID PO Last administered on 04/26/19 08:12; Admin Dose 1.25 GM; Start 04/25/19 at 11:00 Vancomycin/Sodium Chloride 250 ml @ 125 mls/hr Q12H IVPB Last administered on 04/26/19 10:37; Admin Dose 125 MLS/HR; Start 04/25/19 at 23:00 Ketorolac Tromethamine (Toradol) 15 mg Q6 IV Last administered on 04/26/19at 12:23; Admin Dose 15 MG; Start 04/25/19 at 12:00; Stop 04/28/19 at 11:59 Miscellaneous Information (*Rx Drug Level Order Reminder*) 1 1000 ONCE XX ; Start 04/27/19 at 10:00; Stop 04/27/19 at 10:01 LILIANE HOBBS MD Apr 26, 2019 14:32
[2019-04-26 14:34] VITALS: BP 123/61; PULSE 69; RESP 18
[2019-04-26] MEDS: morphine 2 MG INJ IV PRN (18:26)
[2019-04-26 19:46] VITALS: BP 118/56; PULSE 78; RESP 16
[2019-04-27 02:45] VITALS: BP 125/75; PULSE 82; RESP 16
[2019-04-27] MEDS: KETOROLAC 15 MG INJ IV SCH ×4 (06:27→23:09)
[2019-04-27 07:47] VITALS: BP 113/56; PULSE 69; RESP 20
[2019-04-27] MEDS: INSULIN ASPART [NOVOLOG] 3 ML PEN SC SCH ×4 (08:38→22:56)
[2019-04-27] MEDS: FERROUS SULFATE (EC) 325 MG TAB PO SCH ×2 (08:39→22:56)
[2019-04-27] MEDS: MEROPENEM 1 GM/50ML(PMX) 50 ML IVPB SCH (08:39)
[2019-04-27] MEDS: ZINC SULFATE 220 MG CAP PO SCH (08:39)
[2019-04-27] MEDS: FOLIC ACID 1 MG TAB PO SCH (08:39)
[2019-04-27] MEDS: ASPIRIN (EC) 81 MG TAB PO SCH (08:39)
[2019-04-27] MEDS: LISINOPRIL 10 MG TAB PO SCH (08:39)
[2019-04-27] MEDS: VITAMIN B COMPLEX/VIT C CAP PO SCH (08:39)
[2019-04-27] MEDS: metFORMIN 500 MG TAB PO SCH ×2 (08:39→17:40)
[2019-04-27] MEDS: CALCIUM CARBONATE 1.25 GM TAB PO SCH ×2 (08:39→22:56)
[2019-04-27] MEDS: BISACODYL (EC) 5 MG TAB PO SCH (08:40)
[2019-04-27] MEDS: CYANOCOBALAMIN 1000 MCG INJ IM SCH (08:40)
[2019-04-27] MEDS: POLYETHYLENE GLYCOL 17 GM PACKET PO SCH (08:40)
[2019-04-27] MEDS: MUPIROCIN 2% 22 GM OINT TOP SCH ×2 (08:41→21:00)
[2019-04-27] MEDS: VANCOMYCIN 750 MG (PMX) 250 ML IVPB SCH ×2 (11:11→22:56)
--- NOTE | 2019-04-27 11:24 | CONS ---
Assessment/Plan Assessment/Plan Hospital Course (Demo Recall) No acute changes, awake, looks comfortable Microbiology: Blood cultures remain negative, MRSA negative, wound culture growing E. coli, Proteus, Corynebact grp JK Allergies: Penicillin Antimicrobials: Merrem Vanco Physical examination: Well-nourished well-developed elderly man who is in no distress. Head atraumatic normocephalic sclera nonicteric neck is supple chest rise symmetrical breath sounds clear heart: S1-S2 abdomen soft bowel sounds present extremities no cyanosis Assessment: 1. Recurrent hidradenitis suppurativa of bilateral groins and perineum, status post multiple debridement in the past 2. Diabetes 3. Hypertension 4. Coronary artery disease Plan: Clinically unchanged, anticipate dc on current abx with PICC, pt needs to f/u with [facility] for [facility] evaluation, will change Merrem to Invanz daily Consultation Date/Type/Reason Admit Date/Time Apr 22, 2019 at 19:37 Initial Consult Date 04/23/19 Type of Consult id Date/Time of Note DATE: 04/27/19 TIME: 11:24 Exam/Review of Systems Exam Vitals Vital Signs Date Temp Pulse Resp B/P (MAP) Pulse Ox O2 O2 Flow FiO2 Time Delivery Rate 04/27/19 97.7 69 20 113/56 96 07:47 (75) 04/26/19 Room Air 01:59 Intake and Output 04/26/19 04/26/19 04/27/19 1515:00 23:00 07:00 IntakeIntake Total 2200 ml 1170 ml 490 ml OutputOutput Total 150 ml 200 ml BalanceBalance 2050 ml 1170 ml 290 ml Results Result Diagram: 04/26/19 0520 04/26/19 0520 Results 24hrs Laboratory Tests Test 04/26/19 12:24 04/26/19 18:01 04/26/19 21:32 04/27/19 06:50 Bedside Glucose 114 96 150 Lab Scanned BLOOD TRANSFUSIO Report N Test 04/27/19 08:38 04/27/19 09:55 Bedside Glucose 98 Vancomycin Level 10.3 Trough Medications Medication Current Medications Acetaminophen (Tylenol Tab) 650 mg Q6H PRN PO MILD PAIN(1-3)OR ELEVATED TEMP; Start 04/22/19 at 21:30 Morphine Sulfate (morphine) 2 mg Q4H PRN IV MODERATE PAIN LEVEL 4-6 Last administered on 04/26/19 18:26; Admin Dose 2 MG; Start 04/22/19 at 21:30 Morphine Sulfate (morphine) 4 mg Q4H PRN IV SEVERE PAIN LEVEL 7-10; Start 04/22/19 at 21:30 Ondansetron HCl (Zofran Inj) 4 mg Q6H PRN IV NAUSEA AND/OR VOMITING; Start 04/22/19 at 21:30 Bisacodyl (Dulcolax) 5 mg DAILY PO Last administered on 04/27/19 08:40; Admin Dose 5 MG; Start 04/23/19 at 09:00 Polyethylene Glycol (Miralax) 17 gm DAILY PO Last administered on 04/27/19 08:40; Admin Dose 17 GM; Start 04/23/19 at 09:00 Aspirin (Halfprin) 81 mg DAILY PO Last administered on 04/27/19 08:39; Admin Dose 81 MG; Start 04/23/19 at 09:00 Ferrous Sulfate (Ferrous Sulfate (Ec)) 325 mg BID PO Last administered on 04/27/19 08:39; Admin Dose 325 MG; Start 04/22/19 at 21:30 Lisinopril (Zestril) 10 mg DAILY PO Last administered on 04/27/19 08:39; Admin Dose 10 MG; Start 04/23/19 at 09:00 Metformin HCl (Glucophage) 500 mg WITH BREAKFAST DINNE PO Last administered on 04/27/19 08:39; Admin Dose 500 MG; Start 04/23/19 at 08:00 Ergocalciferol (Drisdol) 50,000 unit Q7D PO Last administered on 04/24/19 20:41; Admin Dose 50,000 UNIT; Start 04/24/19 at 21:30 Acetaminophen/ Hydrocodone Bitart ([place] (5/325)) 1 tab Q6H PRN PO MODERATE PAIN LEVEL 4-6; Start 04/23/19 at 13:30 Zinc Sulfate (Zinc Sulfate) 220 mg DAILY PO Last administered on 04/27/19 08:39; Admin Dose 220 MG; Start 04/23/19 at 13:30 Mupirocin (Bactroban) 1 applic BID TOP Last administered on 04/27/19 08:41; Admin Dose 1 APPLIC; Start 04/23/19 at 13:30 Vitamin B Complex/ Vitamin C (Berocca) 1 cap DAILY PO Last administered on 04/27/19 08:39; Admin Dose 1 CAP; Start 04/23/19 at 13:30 Insulin Aspart (Novolog Insulin Pen) NOVOLOG *MODERATE* ALGORI... AC MEALS AND BEDTIME SC Last administered on 04/26/19 21:39; Admin Dose 2 UNIT; Start 04/23/19 at 17:30 IV Flush (NS 10 ml) 10 ml PRN PRN IV FLUSH LINE; Start 04/23/19 at 17:30 Meropenem/Sodium Chloride 50 ml @ 100 mls/hr Q12 IVPB Last administered on 04/27/19 08:39; Admin Dose 100 MLS/HR; Start 04/23/19 at 21:00 Ferric Sodium Gluconate Complex 125 mg/Sodium Chloride 110 ml @ 110 mls/hr DAILY@1300 IVPB Last administered on 04/26/19 13:24; Admin Dose 110 MLS/HR; Start 04/25/19 at 13:00; Stop 04/29/19 at 13:59 Cyanocobalamin (Vitamin B12 Inj) 1,000 mcg DAILY IM Last administered on 04/27/19 08:40; Admin Dose 1,000 MCG; Start 04/24/19 at 15:30 Folic Acid (Folic Acid) 1 mg DAILY PO Last administered on 04/27/19 08:39; Admin Dose 1 MG; Start 04/24/19 at 15:00 Vancomycin HCl (Vanco Iv Per Pharmacy) VANCOMYCIN PER PHARMACY PER PROTOCOL XX ; Start 04/25/19 at 11:00 Calcium Carbonate (Oyster Shell Calcium) 1.25 gm BID PO Last administered on 04/27/19 08:39; Admin Dose 1.25 GM; Start 04/25/19 at 11:00 Vancomycin/Sodium Chloride 250 ml @ 125 mls/hr Q12H IVPB Last administered on 04/27/19 11:11; Admin Dose 125 MLS/HR; Start 04/25/19 at 23:00 Ketorolac Tromethamine (Toradol) 15 mg Q6 IV Last administered on 04/27/19 06:27; Admin Dose 15 MG; Start 04/25/19 at 12:00; Stop 04/28/19 at 11:59 EZIO JACOBO NP Apr 27, 2019 11:24
[2019-04-27] MEDS: ERTAPENEM SODIUM 1 GM in SOD CHLORIDE 0.9% 100 ML IVPB SCH (13:40)
[2019-04-27 13:57] VITALS: BP 121/60; PULSE 75; RESP 18
--- NOTE | 2019-04-27 14:15 | PN ---
Date/Time of Note Date/Time of Note DATE: 04/27/19 TIME: 14:13 Assessment/Plan VTE Prophylaxis Risk score (from Ns)>0 risk: 3 SCD applied (from Ns): Yes Pharmacological prophylaxis: NA/contraindicated Pharm contraindication: low risk/ambulating Lines/Catheters IV Catheter Type (from Nrsg): PICC Line Central line still needed: Yes Urinary Cath still in place: No Assessment/Plan Assessment/Plan Hospital Course 1. Severe hidradenitis suppurativa in inguinal area bilaterally and buttocks area. Patient just completed course of antibiotics for 12 weeks started in February 21, 2019. cx+ E. coli's/Corynebacterium Proteus 2. Severe anemia iron deficiency/anemia of chronic disease 3. Sepsis 4. Hyponatremia 5. Hypocalcemia Assessment/Plan -Per ID Meropenem / vanco, and is refusing to go to [facility] level will arrange for IV antibiotics at home per ID, iv vanco and invanz to be arrnaged - will check with Dr Bermudez plastic surgery if will need patient here -PICC line in -c/w wound care -transfer to tertiary center are started per case management however patient refused --Wound care -sp 1 unit PRBC> recheck Result Diagram: 04/26/19 0520 04/26/19 0520 Results 24hrs Laboratory Tests Test 04/26/19 18:01 04/26/19 21:32 04/27/19 06:50 04/27/19 08:38 Bedside Glucose 96 150 98 Lab Scanned BLOOD TRANSFUSIO Report N Test 04/27/19 09:55 04/27/19 12:27 Vancomycin Level 10.3 Trough Bedside Glucose 131 Subjective 24 Hr Interval Summary Free Text/Dictation This post 1 unit of blood yesterday Exam/Review of Systems Exam Vitals Vital Signs Date Temp Pulse Resp B/P (MAP) Pulse Ox O2 O2 Flow FiO2 Time Delivery Rate 04/27/19 97.5 75 18 121/60 99 13:57 (80) 04/26/19 Room Air 01:59 Intake and Output 04/26/19 04/26/19 04/27/19 1515:00 23:00 07:00 IntakeIntake Total 2200 ml 1170 ml 490 ml OutputOutput Total 150 ml 200 ml BalanceBalance 2050 ml 1170 ml 290 ml Exam Exam Constitutional: alert, oriented Psych: no complaints Head: normocephalic Eyes: nl conjunctiva, EOMI, nl lids, nl sclera ENMT: nl external ears & nose, nl lips & teeth Neck: supple Respiratory: clear to auscultation, normal air movement Cardiovascular: regular rate and rhythm Gastrointestinal: soft Skin: other (numerous wouds buttiocks) Results Results 24hrs Laboratory Tests Test 04/26/19 18:01 04/26/19 21:32 04/27/19 06:50 04/27/19 08:38 Bedside Glucose 96 150 98 Lab Scanned BLOOD TRANSFUSIO Report N Test 04/27/19 09:55 04/27/19 12:27 Vancomycin Level 10.3 Trough Bedside Glucose 131 Medications Medication Current Medications Acetaminophen (Tylenol Tab) 650 mg Q6H PRN PO MILD PAIN(1-3)OR ELEVATED TEMP; Start 04/22/19 at 21:30 Morphine Sulfate (morphine) 2 mg Q4H PRN IV MODERATE PAIN LEVEL 4-6 Last administered on 04/26/19at 18:26; Admin Dose 2 MG; Start 04/22/19 at 21:30 Morphine Sulfate (morphine) 4 mg Q4H PRN IV SEVERE PAIN LEVEL 7-10; Start 04/22/19 at 21:30 Ondansetron HCl (Zofran Inj) 4 mg Q6H PRN IV NAUSEA AND/OR VOMITING; Start 04/22/19 at 21:30 Bisacodyl (Dulcolax) 5 mg DAILY PO Last administered on 04/27/19 08:40; Admin Dose 5 MG; Start 04/23/19 at 09:00 Polyethylene Glycol (Miralax) 17 gm DAILY PO Last administered on 04/27/19 08:40; Admin Dose 17 GM; Start 04/23/19 at 09:00 Aspirin (Halfprin) 81 mg DAILY PO Last administered on 04/27/19 08:39; Admin Dose 81 MG; Start 04/23/19 at 09:00 Ferrous Sulfate (Ferrous Sulfate (Ec)) 325 mg BID PO Last administered on 04/27/19 08:39; Admin Dose 325 MG; Start 04/22/19 at 21:30 Lisinopril (Zestril) 10 mg DAILY PO Last administered on 04/27/19 08:39; Admin Dose 10 MG; Start 04/23/19 at 09:00 Metformin HCl (Glucophage) 500 mg WITH BREAKFAST DINNE PO Last administered on 04/27/19 08:39; Admin Dose 500 MG; Start 04/23/19 at 08:00 Ergocalciferol (Drisdol) 50,000 unit Q7D PO Last administered on 04/24/19 20:41; Admin Dose 50,000 UNIT; Start 04/24/19 at 21:30 Acetaminophen/ Hydrocodone Bitart ([place] (5/325)) 1 tab Q6H PRN PO MODERATE PAIN LEVEL 4-6; Start 04/23/19 at 13:30 Zinc Sulfate (Zinc Sulfate) 220 mg DAILY PO Last administered on 04/27/19 08:39; Admin Dose 220 MG; Start 04/23/19 at 13:30 Mupirocin (Bactroban) 1 applic BID TOP Last administered on 04/27/19 08:41; Admin Dose 1 APPLIC; Start 04/23/19 at 13:30 Vitamin B Complex/ Vitamin C (Berocca) 1 cap DAILY PO Last administered on 04/27/19 08:39; Admin Dose 1 CAP; Start 04/23/19 at 13:30 Insulin Aspart (Novolog Insulin Pen) NOVOLOG *MODERATE* ALGORI... AC MEALS AND BEDTIME SC Last administered on 04/26/19 21:39; Admin Dose 2 UNIT; Start 04/23/19 at 17:30 IV Flush (NS 10 ml) 10 ml PRN PRN IV FLUSH LINE; Start 04/23/19 at 17:30 Ferric Sodium Gluconate Complex 125 mg/Sodium Chloride 110 ml @ 110 mls/hr DAILY@1300 IVPB Last administered on 04/26/19 13:24; Admin Dose 110 MLS/HR; Start 04/25/19 at 13:00; Stop 04/29/19 at 13:59 Cyanocobalamin (Vitamin B12 Inj) 1,000 mcg DAILY IM Last administered on 04/27/19 08:40; Admin Dose 1,000 MCG; Start 04/24/19 at 15:30 Folic Acid (Folic Acid) 1 mg DAILY PO Last administered on 04/27/19 08:39; Admin Dose 1 MG; Start 04/24/19 at 15:00 Vancomycin HCl (Vanco Iv Per Pharmacy) VANCOMYCIN PER PHARMACY PER PROTOCOL XX ; Start 04/25/19 at 11:00 Calcium Carbonate (Oyster Shell Calcium) 1.25 gm BID PO Last administered on 04/27/19at 08:39; Admin Dose 1.25 GM; Start 04/25/19 at 11:00 Vancomycin/Sodium Chloride 250 ml @ 125 mls/hr Q12H IVPB Last administered on 04/27/19 11:11; Admin Dose 125 MLS/HR; Start 04/25/19 at 23:00 Ketorolac Tromethamine (Toradol) 15 mg Q6 IV Last administered on 04/27/19at 12:28; Admin Dose 15 MG; Start 04/25/19 at 12:00; Stop 04/28/19 at 11:59 Ertapenem 1 gm/ Sodium Chloride 100 ml @ 200 mls/hr Q24H IVPB Last admi nistered on 04/27/19at 13:40; Admin Dose 200 MLS/HR; Start 04/27/19 at 11:30 LILIANE HOBBS MD Apr 27, 2019 14:15
[2019-04-27] MEDS: SOD FERRIC GLUC COMPLX 125 MG in SOD CHLORIDE 0.9% 100 ML IVPB SCH (14:21)
[2019-04-27] MEDS: morphine 2 MG INJ IV PRN (18:15)
[2019-04-27 20:09] VITALS: BP 134/61; PULSE 81; RESP 16
[2019-04-28 01:56] VITALS: BP 130/61; PULSE 85; RESP 16
[2019-04-28] MEDS: KETOROLAC 15 MG INJ IV SCH (06:00)
[2019-04-28 08:00] VITALS: BP 119/57; PULSE 78; RESP 18
[2019-04-28] MEDS: VITAMIN B COMPLEX/VIT C CAP PO SCH (08:41)
[2019-04-28] MEDS: FERROUS SULFATE (EC) 325 MG TAB PO SCH (08:41)
[2019-04-28] MEDS: INSULIN ASPART [NOVOLOG] 3 ML PEN SC SCH ×2 (08:41→13:14)
[2019-04-28] MEDS: LISINOPRIL 10 MG TAB PO SCH (08:41)
[2019-04-28] MEDS: ZINC SULFATE 220 MG CAP PO SCH (08:41)
[2019-04-28] MEDS: BISACODYL (EC) 5 MG TAB PO SCH (08:41)
[2019-04-28] MEDS: CALCIUM CARBONATE 1.25 GM TAB PO SCH (08:41)
[2019-04-28] MEDS: CYANOCOBALAMIN 1000 MCG INJ IM SCH (08:42)
[2019-04-28] MEDS: FOLIC ACID 1 MG TAB PO SCH (08:42)
[2019-04-28] MEDS: ASPIRIN (EC) 81 MG TAB PO SCH (08:42)
[2019-04-28] MEDS: metFORMIN 500 MG TAB PO SCH (08:42)
[2019-04-28] MEDS: MUPIROCIN 2% 22 GM OINT TOP SCH (08:44)
[2019-04-28] MEDS: POLYETHYLENE GLYCOL 17 GM PACKET PO SCH (08:44)
[2019-04-28] MEDS: VANCOMYCIN 750 MG (PMX) 250 ML IVPB SCH (11:07)
--- NOTE | 2019-04-28 11:11 | PDOCDIS ---
Discharge Instructions DIAGNOSIS Discharge Diagnosis hidreadenitis CONDITION [id number] Patient Condition: [id number] Fair HOME CARE INSTRUCTIONS: [id number] Diet Instructions: [id number] Regular ACTIVITY: [id number] Activity Restrictions: [id number] Slowly Increase Activity Rest between Activity Avoid heavy lifting FOLLOW UP/APPOINTMENTS Follow-up Plan fu PCP in 1-2 week fu [facility] for plastics for surgery LILIANE HOBBS MD Apr 28, 2019 11:11
[2019-04-28] MEDS: morphine 2 MG INJ IV PRN (13:14)
[2019-04-28] MEDS: ERTAPENEM SODIUM 1 GM in SOD CHLORIDE 0.9% 100 ML IVPB SCH (13:37)
--- NOTE | 2019-04-28 14:41 | QN ---
Documentation Comment seen and examined LILIANE HOBBS MD Apr 28, 2019 14:41
[2019-04-28] MEDS: SOD FERRIC GLUC COMPLX 125 MG in SOD CHLORIDE 0.9% 100 ML IVPB SCH (14:55)
--- NOTE | 2019-04-28 15:03 | CONS ---
Assessment/Plan Assessment/Plan Hospital Course (Demo Recall) No acute changes, awake, looks comfortable Microbiology: Blood cultures remain negative, MRSA negative, wound culture growing E. coli, Proteus, Corynebact grp JK Allergies: Penicillin Antimicrobials: Merrem Vanco Physical examination: Well-nourished well-developed elderly man who is in no distress. Head atraumatic normocephalic sclera nonicteric neck is supple chest rise symmetrical breath sounds clear heart: S1-S2 abdomen soft bowel sounds present extremities no cyanosis Assessment: 1. Recurrent hidradenitis suppurativa of bilateral groins and perineum, status post multiple debridement in the past 2. Diabetes 3. Hypertension 4. Coronary artery disease Plan: Clinically unchanged, anticipate dc on current abx with PICC for 2 weeks, pt needs to f/u with [facility] for plastic surgery evaluation Consultation Date/Type/Reason Admit Date/Time Apr 22, 2019 at 19:37 Initial Consult Date 04/23/19 Type of Consult id Date/Time of Note DATE: 04/28/19 TIME: 15:03 Exam/Review of Systems Exam Vitals Vital Signs Date Temp Pulse Resp B/P (MAP) Pulse Ox O2 O2 Flow FiO2 Time Delivery Rate 04/28/19 98.4 78 18 119/57 97 08:00 (77) 04/26/19 Room Air 01:59 Intake and Output 04/27/19 04/27/19 04/28/19 1515:00 23:00 07:00 IntakeIntake Total 1600 ml 630 ml 250 ml OutputOutput Total 950 ml 200 ml 100 ml BalanceBalance 650 ml 430 ml 150 ml Results Result Diagram: 04/28/19 0801 04/28/19 0802 Results 24hrs Laboratory Tests Test 04/27/19 17:32 04/27/19 22:55 04/28/19 08:01 04/28/19 08:02 Bedside Glucose 117 91 White Blood Count 11.6 #H Red Blood Count 3.04 L Hemoglobin 7.9 L Hematocrit 26.3 L Mean Corpuscular 86.5 Volume Mean Corpuscular 26.0 L Hemoglobin Mean Corpuscular 30.0 L Hemoglobin Concent Red Cell 17.0 H Distribution Width Platelet Count 286 Mean Platelet Volume 9.0 Immature 0.500 H Granulocytes % Neutrophils % 82.5 H Lymphocytes % 11.6 L Monocytes % 4.7 Eosinophils % 0.4 Basophils % 0.3 Nucleated Red Blood 0.0 Cells % Immature 0.060 H Granulocytes # Neutrophils # 9.6 H Lymphocytes # 1.4 Monocytes # 0.6 Eosinophils # 0.1 Basophils # 0.0 Nucleated Red Blood 0.0 Cells # Sodium Level 135 Potassium Level 4.2 Chloride Level 103 Carbon Dioxide Level 28 Anion Gap 4 L Blood Urea Nitrogen 14 Creatinine 0.53 L Est Glomerular > 60 Filtrat Rate mL/min Glucose Level 96 Calcium Level 7.6 L Phosphorus Level 3.3 Magnesium Level 1.7 Test 04/28/19 08:40 04/28/19 13:13 Bedside Glucose 99 95 Medications Medication Current Medications Acetaminophen (Tylenol Tab) 650 mg Q6H PRN PO MILD PAIN(1-3)OR ELEVATED TEMP; Start 04/22/19 at 21:30 Morphine Sulfate (morphine) 2 mg Q4H PRN IV MODERATE PAIN LEVEL 4-6 Last administered on 04/28/19 13:14; Admin Dose 2 MG; Start 04/22/19 at 21:30 Morphine Sulfate (morphine) 4 mg Q4H PRN IV SEVERE PAIN LEVEL 7-10; Start 04/22/19 at 21:30 Ondansetron HCl (Zofran Inj) 4 mg Q6H PRN IV NAUSEA AND/OR VOMITING; Start 04/22/19 at 21:30 Bisacodyl (Dulcolax) 5 mg DAILY PO Last administered on 04/28/19 08:41; Admin Dose 5 MG; Start 04/23/19 at 09:00 Polyethylene Glycol (Miralax) 17 gm DAILY PO Last administered on 04/28/19 08:44; Admin Dose 17 GM; Start 04/23/19 at 09:00 Aspirin (Halfprin) 81 mg DAILY PO Last administered on 04/28/19 08:42; Admin Dose 81 MG; Start 04/23/19 at 09:00 Ferrous Sulfate (Ferrous Sulfate (Ec)) 325 mg BID PO Last administered on 04/28/19 08:41; Admin Dose 325 MG; Start 04/22/19 at 21:30 Lisinopril (Zestril) 10 mg DAILY PO Last administered on 04/28/19 08:41; Admin Dose 10 MG; Start 04/23/19 at 09:00 Metformin HCl (Glucophage) 500 mg WITH BREAKFAST DINNE PO Last administered on 04/28/19 08:42; Admin Dose 500 MG; Start 04/23/19 at 08:00 Ergocalciferol (Drisdol) 50,000 unit Q7D PO Last administered on 04/24/19 20:41; Admin Dose 50,000 UNIT; Start 04/24/19 at 21:30 Acetaminophen/ Hydrocodone Bitart ([place] (5/325)) 1 tab Q6H PRN PO MODERATE PAIN LEVEL 4-6; Start 04/23/19 at 13:30 Zinc Sulfate (Zinc Sulfate) 220 mg DAILY PO Last administered on 04/28/19 08:41; Admin Dose 220 MG; Start 04/23/19 at 13:30 Mupirocin (Bactroban) 1 applic BID TOP Last administered on 04/28/19 08:44; Admin Dose 1 APPLIC; Start 04/23/19 at 13:30 Vitamin B Complex/ Vitamin C (Berocca) 1 cap DAILY PO Last administered on 08:41; Admin Dose 1 CAP; Start 04/23/19 at 13:30 Insulin Aspart (Novolog Insulin Pen) NOVOLOG *MODERATE* ALGORI... AC MEALS AND BEDTIME SC Last administered on 04/26/19 21:39; Admin Dose 2 UNIT; Start 04/23/19 at 17:30 IV Flush (NS 10 ml) 10 ml PRN PRN IV FLUSH LINE; Start 04/23/19 at 17:30 Ferric Sodium Gluconate Complex 125 mg/Sodium Chloride 110 ml @ 110 mls/hr DAILY@1300 IVPB Last administered on 04/28/19 14:55; Admin Dose 110 MLS/HR; Start 04/25/19 at 13:00; Stop 04/29/19 at 13:59 Cyanocobalamin (Vitamin B12 Inj) 1,000 mcg DAILY IM Last administered on 04/28/19 08:42; Admin Dose 1,000 MCG; Start 04/24/19 at 15:30 Folic Acid (Folic Acid) 1 mg DAILY PO Last administered on 04/28/19 08:42; Admin Dose 1 MG; Start 04/24/19 at 15:00 Vancomycin HCl (Vanco Iv Per Pharmacy) VANCOMYCIN PER PHARMACY PER PROTOCOL XX ; Start 8/11/19 at 11:00 Calcium Carbonate (Oyster Shell Calcium) 1.25 gm BID PO Last administered on 04/28/19 08:41; Admin Dose 1.25 GM; Start 04/25/19 at 11:00 Vancomycin/Sodium Chloride 250 ml @ 125 mls/hr Q12H IVPB Last administered on 04/28/19 11:07; Admin Dose 125 MLS/HR; Start 04/25/19 at 23:00 Ertapenem 1 gm/ Sodium Chloride 100 ml @ 200 mls/hr Q24H IVPB Last administered on 04/28/19at 13:37; Admin Dose 200 MLS/HR; Start 04/27/19 at 11:30 EZIO JACOBO NP Apr 28, 2019 15:03
[2019-04-28 15:06] VITALS: BP 147/71; PULSE 81; RESP 17
--- NOTE | 2019-04-29 02:12 | DS ---
DATE OF ADMISSION: 04/22/2019 DATE OF DISCHARGE: 04/28/2019 HISTORY OF PRESENT ILLNESS AND HOSPITAL COURSE: A 63-year-old male with numerous admissions to [facility] with hidradenitis suppurativa severe form, was admitted from the home for shaking and chills for 4 days. The patient was seen in primary care office, was sent for evaluation. The patien t had similar admission 3 months ago, placement of PICC line antibiotics for 12 weeks. On admission, temperature was 97.9, pulse 76, respirations 18, blood pressure 102/80. The patient was started on IV fluids and patient had numerous single lung lesions and purulent discharge, numerous lymphatic nod e enlargement. The patient had a white count of 13.8 on admission. Blood cultures were sent that we re negative. The patient was seen by Dr. Marques for surgery consultation and had I and D of the [facility] area and the culture grew out E. coli, Proteus bacterium. The patient was treated with va ncomycin and meropenem. Per surgery notes, the patient should be transferred to tertiary center for a plastic surgery evaluation for skin flaps and multiple surgeries for definite surgery; however, att empts were made to transfer the patient to tertiary center; however, the family refused for the fuentes nt to get transferred. Call was made out to also Dr. Espinoza, plastic surgeon, for doing the plastic surgery in the hospital; however, the refused, said that she had been to his office a few months ago. It was decided per ID to send the patient home with IV antibiotics for 2 weeks. The patient h ad a PICC line placed. Arrangement was done for IV vancomycin and ertapenem to be given via home [facility] for 2 weeks. Currently, the patient is feeling much better. White count has improved and stable to be discharged home with IV antibiotics. The patient had chronic anemia and had received 1 unit o f blood. The hemoglobin was 7.9 on discharge. He will be given IV iron and will be continued on p.o . iron at home. DISCHARGE CONDITION: Stable. DISCHARGE DIET: Regular diet. DISCHARGE MEDICATIONS: 1. Folic acid 1 mg p.o. daily. 2. Vitamin B complex daily. 3. Aspirin 81. 4. Ergocalciferol. 5. Iron sulfate 325 p.o. b.i.d. 5. Lisinopril 10. 6. Metformin 500 b.i.d. with breakfast and dinner. Arrangements were done was IV vancomycin for 2 weeks and IV Invanz gram daily for 2 weeks. The patie nt needs to follow up with PCP and ID in 1 to 2 weeks. Dictated By: LILIANE SAHA/MAURIZIO Conf#: [id number] DID#: [id number] CC: TAMARA SMITH MD;*EndCC*
== END 2019-04-28 16:55 | disposition home health service (06) | DRG 872 ==
LOC: E/R 17:29 → 2NE 19:37
PROVIDERS: ADMIT Internal Medicine Nephrology; ATTEND Internal Medicine Nephrology
PROC: 02H633Z Insertion of Infusion Device into Right Atrium, Percutaneous Approach (ICD-10-PCS; principal; 2019-04-23)
PROC: B244ZZZ Ultrasonography of Right Heart (ICD-10-PCS; 2019-04-23)
PROC: 30233N1 Transfusion of Nonautologous Red Blood Cells into Peripheral Vein, Percutaneous Approach (ICD-10-PCS; 2019-04-23)
PROC: 30233N1 Transfusion of Nonautologous Red Blood Cells into Peripheral Vein, Percutaneous Approach (ICD-10-PCS; 2019-04-26)
DX: A41.50 Gram-negative sepsis, unspecified (principal); E87.1 Hypo-osmolality and hyponatremia; E87.2 Acidosis; E83.51 Hypocalcemia; E11.9 Type 2 diabetes mellitus without complications; B96.20 Unspecified Escherichia coli [E. coli] as the cause of diseases classified elsewhere; L73.2 Hidradenitis suppurativa; D64.9 Anemia, unspecified; I10 Essential (primary) hypertension; I25.10 Atherosclerotic heart disease of native coronary artery without angina pectoris; Z79.4 Long term (current) use of insulin; R65.20 Severe sepsis without septic shock; B96.4 Proteus (mirabilis) (morganii) as the cause of diseases classified elsewhere; B95.4 Other streptococcus as the cause of diseases classified elsewhere
CPT/HCPCS: 36415; 36430; 71045; 72194; 76937; 80048; 80053; 80202; 81001; 81003; 82962; 83036; 83540; 83605; 83735; 84100; 84484; 85025; 85610; 85730; 86850; 86900; 86901; 86920; 87070; 87081; 87086; 93005; J0610; J1335; J1815; J1885; J1956; J2185; J2270; J2405; J2916; J3370; J3420; J7030; J7042; P9016; Q9967

== ENCOUNTER 2019-07-21 12:12 | Emergency (ER) | payer SELFPAY ==
[~2019-07-21] VITALS: Ht 167.6 cm; Wt 80.0 kg
[~2019-07-21 12:12] MED LIST changes: -ASC500 PO; -CLIN300C10 PO; -Calcium Carbonate PO; -FENO145T37 PO; -LISI-313 PO; -MUPI22OI2 TOP; -PANT40TA4 PO; -ZINC220C5 PO
[2019-07-21 12:49] VITALS: BP 140/78; PULSE 57; RESP 18; Ht 167.6 cm; Wt 80.0 kg
== END 2019-07-21 17:43 | disposition left against medical advice (07) ==
LOC: E/R 12:12
DX: Z53.21 Procedure and treatment not carried out due to patient leaving prior to being seen by health care provider (principal)